=== PATIENT | female | born 1955 | race Caucasian/White ===

== ENCOUNTER 2019-07-02 17:34 | Observation (INO) | payer BC, MEDICARE, SELFPAY ==
[2019-07-02] VITALS (8 sets, daily range): BP systolic 121–167; BP diastolic 54–72; PULSE 66–78; RESP 11–19; TEMP 36.6–36.9; O2SAT 95–100; BMI 32.8; BMI 32.2
--- NOTE | 2019-07-02 18:00 | EKG12_ITS ---
Test Reason : CP ADMIT Blood Pressure : / mmHG Vent. Rate : 066 BPM Atrial Rate : 066 BPM P-R Int : 168 ms QRS Dur : 090 ms QT Int : 412 ms P-R-T Axes : 045 006 053 degrees QTc Int : 431 ms Normal sinus rhythm Normal ECG When compared with ECG of 02-JUL-2019 17:39, MANUAL COMPARISON REQUIRED, DATA IS UNCONFIRMED Confirmed by KELLEY WANG ([id number]), director of promotions OPAL QUINTEROS ([id number]) on 07/05/2019 8:48:48 AM Referred By: Hattie Levine Confirmed By:KELLEY WANG
[2019-07-02 18:06] LABS: Absolute Lymphocyte Count 2.94 X10^3/uL (0.83-4.51); Absolute Neutrophil Count 4.8 X10^3/uL (2.0-7.7); Basophil# 0.06 X10^3/uL; Basophil% 0.7 % (0-1); Eosinophil# 0.04 X10^3/uL; Eosinophils% 0.5 % (0-5); Hematocrit 40.1 % (37-47); Hemoglobin 13.4 g/dL (12.0-15.0); Lymphocyte # 2.94 X10^3/ul (4.0); Mean Corp Hgb Conc 33.4 g/dL (32-36); Mean Corpuscular Hgb 29.3 pg (27.0-32.0); Mean Corpuscular Volume 87.7 fL (81-99); Mean Platelet Vol. 9.3 fl (6.2-12.0); Monocyte# 0.56 X10^3/uL; Monocyte% 6.7 % (0-10); NRBC Flagged by Analyzer 0 % (0-5); Neutrophil # 4.76 X10^3/uL (2.7-7.7); Neutrophil % 56.7 % (47-70); Platelet Count 252 K/mm3 (150-450); RBC Distribution Width SD 38.5 fl (35.1-43.9); Red Blood Count 4.57 M/mm3 (4.2-5.4); White Blood Count 8.4 K/mm3 (4.4-11.0)
--- NOTE | 2019-07-02 18:10 | RAD_ITS ---
STUDY: X-RAY CHEST REASON FOR EXAM: Female, 63 years old. PT STATES SOB FOR A WEEK. INCREASE IN HEAVINESS YESTERDAY THAT RADIATES THROUGH TO BACK. PT C/O NAUSEA. PT ALSO HAS HX OF REFLUX. TECHNIQUE: Single AP portable view of the chest. COMPARISON: 02/05/2016 FINDINGS: EKG leads overlie the chest The lungs are clear and expanded. There is no demonstrated pleural abnormality. Normal size heart. Normal mediastinum and marci. Normal visualized pulmonary arteries. Normal visualized aortic arch and descending thoracic aorta. There are diffuse degenerative changes of the visualized thoracic spine. Normal visualized ribs, clavicles, and shoulders. There is no demonstrated abnormality of the visualized soft tissue structures of the upper abdomen. RAD/Chest 1 View (Portable) IMPRESSION: No acute pulmonary process Electronically Signed: Sean Figueroa MD at 18:21 EST , Service support ,
[2019-07-02 18:23] LABS: Anion Gap 3 (5-15); BUN 16 mg/dL (7-18); BUN/Creat Ratio 19.1 RATIO (10-20); Calcium,Total 9.4 mg/dL (8.5-10.1); Chloride 102 mmol/L (98-107); Creatinine, Serum 0.84 mg/dL (0.55-1.02); EST Glomerular Filtration Rate 73 mL/min (>60); Est Glom Filt Rate - Afr Amer 88 mL/min (>60); Estimated Creatinine Clearance 64.93 ml/min; Glucose 149 mg/dL (74-106); Potassium 3.8 mmol/L (3.5-5.1); Sodium Level 138 mmol/L (136-145)
--- NOTE | 2019-07-02 18:30 | ED.DCSUM_ITS ---
History of Present Illness Chief Complaint: Shortness of Breath Informant: Patient Narrative: Patient presents the emergency department with intermittent chest pain. She describes it as a tightness that comes for several seconds then resolves. She states that time it travels through her left breast. She notes fatigue and some shortness of breath as well.. She notes she had a heart cath many years ago that she states showed a 50% blockage. Unfortunately this must predate the current computer system as it is not accessible by me at this time. He does know the Dr. Bateman performed the procedure.. She states that she was treated about a month ago for a sinus infection. Otherwise she has not had any significant cough or illnesses. Past Medical History - Allergies and Home Meds Allergies/Adverse Reactions: Allergies Latex, Natural Rubber Adverse Reaction (Verified 07/02/19 17:39) Unknown Primary Care Physician: El Driver DO [Primary Care Provider] - Surgical History: appendectomy, cholecystectomy, hysterectomy, - - Laminectomy Smoking Status: Former smoker Review of Systems General: Denies: Chills, Fever, Sweats Eyes: Denies: Visual changes - bilaterally, Diplopia ENT: Denies: Rhinorrhea, Sore throat Cardiovascular: Reports: Chest pain. Denies: Palpitations Respiratory: Reports: Dyspnea. Denies: Cough, Dyspnea on exertion Gastrointestinal: Denies: Abdominal pain, Nausea, Vomiting, Diarrhea, Melena, Hematochezia Genitourinary: Denies: Dysuria, Hematuria, Frequency Musculoskeletal: Denies: Back pain, Extremity Pain Skin: Denies: Rash, Wounds Neurological: Denies: Headache, Weakness, Numbness Physical Exam Vital Signs/Narrative: Vital Signs Temp Pulse Resp BP Pulse Ox 07/02/19 17:35 98.5 F 78 11 L 167/65 H 100 Inital Vital Signs reviewed: Yes General: Well nourished, Well developed, No Acute Distress Head: Normocephalic, Atraumatic Eyes: Perrl, EOMI ENT: Moist mucous membranes, No rhinorrhea Neck: Supple, Nontender Cardiovascular: Regular rate, Regular rhythm, No murmurs Respiratory: No distress, CTA bilaterally, Chest nontender Abdomen: Soft, Nontender, Nondistended, Normal bowel sounds Back: Nontender, Normal Inspection Extremities: Nontender, No edema Skin: Normal color, No rash Neurological: Alert, Oriented x3, Cranial nerves II-XII grossly intact, Normal Strength, Normal Sensation Psychological: Normal affect, Normal Mood Diagnostic/Tx/Re-eval - Rhythm Strip Rhythm Strip: Sinus Rhythm Rate: 75 - Medical Decision Making Troponin was negative. Chest x-ray shows a mediastinal silhouette. Again the chest pain is intermittent. With her symptoms of chest pain shortness of breath fatigue and her medical history including diabetes, hypertension, hypercholesterolemia, and a former smoker she certainly raises concern for the interval development of coronary artery disease. Plan is admission for further testing. ED Disposition - Plan for ED Patient: Disposition: Acute Care [facility] Diagnosis: Chest pain Referrals: El Driver DO [Primary Care Provider] -
--- NOTE | 2019-07-02 19:48 | HP.PCM_ITS ---
History of Present Illness Date of Admission: 07/02/19 Chief Complaint: chest pain, shortness of breath The patient is a 63 year old F with a past medical history of hypertension and diabetes as well as hyperlipidemia and nicotine dependence. She was admitted through the ED on 07/02/2019 with a complaint of chest pain and shortness of breath which have been going on for couple of weeks. She said chest pain was pressure-like and retrosternal and she felt like something was sitting on her chest. Chest pain did not radiate to her left arm or her jaw but she did have some associated lightheadedness with it. She also had assisted exertional shortness of breath which was relieved by rest and states is not been able to go up and down the stairs in her house without getting short of breath. She admitted to occasional palpitations but denied any dizziness, nausea vomiting or abdominal pain. Patient states she had a cardiac cath 7 years ago and was told she had 50% blockage in 1 of her vessels which did not require any stenting. However I do not see any records of any such cath in the EMR. On admission in the ED, blood pressure was elevated at 159/66 and respiratory rate was 19 pulse rate was 71 and she was saturating 95% on room air. Temperature was 98.5 Fahrenheit. Chemistry showed bicarb of 33 with anion gap of 3 but was otherwise unremarkable. Troponin was negative and CBC was unremarkable. EKG done showed normal sinus rhythm with no acute ST changes. X-ray per my review showed no acute cardiopulmonary process. She has been admitted to be managed for chest pain rule out ACS. Past Medical History Past Medical History (Chronic Problems): Chronic Problems osteomyelitis left rib (Chronic) CAD (coronary artery disease) (Chronic) Tobacco user (Chronic) Hypertension (Chronic) Dyslipidemia (Chronic) Diabetes mellitus, type 2 (Chronic) Agitated depression (Chronic) Allergies Latex, Natural Rubber Adverse Reaction (Verified 07/02/19 17:39) Unknown Home Medications: Ambulatory Orders Medication Instructions Recorded Insulin Regular, Human [Novolin R] 20 unit SC DAILY 07/23/15 Aspirin [Adult Low Dose Aspirin EC] 81 mg PO DAILY 02/05/16 Duloxetine HCl 60 mg PO DAILY 02/05/16 Gabapentin [Gralise] 600 mg PO QHS 02/05/16 Glimepiride [Amaryl] 2 mg PO DAILY 02/05/16 Lisinopril [Zestril] 30 mg PO DAILY 02/05/16 Atorvastatin Calcium [Lipitor] 40 mg PO QHS 07/02/19 Insulin NPH Human Isophane 32 units SQ DAILY@0807/02/19 [Humulin N] Insulin NPH Human Isophane 36 units SQ DAILY@199907/02/19 [Humulin N] Omeprazole 40 mg PO BID 07/02/19 Vit C/E/Zn/Coppr/Lutein/Zeaxan 1 cap PO BID 07/02/19 [Preservision Areds 2 Softgel] traZODone [Desyrel] 100 mg PO QHS 07/02/19 Surgical History: appendectomy, cholecystectomy, hysterectomy, - - Laminectomy 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 Denies: Chest Tightness, Edema, Heaviness, Orthopnea, Paroxysmal Noc. Dyspnea, Syncope Respiratory: Reports: Shortness of Breath, Shortness of breath upon exertion. Denies: Cough, Shortness of breath at rest, Sputum production Gastrointestinal: Denies: Abdominal Pain, Nausea, Vomiting Genitourinary: Denies: Dysuria Musculoskeletal: Denies: Joint Pain, Joint Tenderness Skin: Denies: Rash, Wounds Neurological: Denies: Numbness, Tingling, Focal weakness Psychiatric: Denies: Anxiety, Depression, Homicidal Ideations, Suicidal Ideations Hematologic/ Lymphatic: Denies: Easy Bruising, Easy Bleeding VTE Information - Inpt Only VTE Present on Admission: No VTE Pharm Prophylaxis ordered?: Yes Patient Problems: Active and Suspected Problems Chest pain (Acute) - Physical Exam Vitals/I&O's: Vital Signs Temp Pulse Resp BP Pulse Ox 98.5 F 66 18 133/60 H 97 07/02/19 17:35 07/02/19 19:00 07/02/19 19:00 07/02/19 19:00 07/02/19 19:00 Oxygen Delivery Method Room Air Weight: 209 lb 7.026 oz Body Mass Index (BMI) 32.8 Finger Stick Blood Glucose 167 General: Alert, Oriented x3, Cooperative, No apparent distress HEENT: Atraumatic, PERRLA, EOMI, Normocephalic Oral: Moist Mucosa Neck: Supple, No JVD, Negative Carotid Bruits Lungs: Clear to auscultation, Normal air movement, No rhonchi, No wheeze, No rales Cardiovascular: Regular rate, Regular Rhythm, Normal S1, Normal S2, No murmurs Abdomen: Bowel Sounds Present, Soft, Non Tender Extremities: No clubbing, No cyanosis, No edema, Capillary Refill Less than 3 Seconds Skin: No rashes, No breakdown Musculoskeletal: No Tenderness to Palpation of Joints or Extremities Lymphatic: No Cervical, Supraclavicular, or Inguinal Adenopathy Neurological: Cranial nerves II-XII grossly intact, Neuro grossly intact, Motor Exam 5/5 strength throughout Psych/Mental Status: Normal Affect, Appropriate, Alert and oriented to time, place, person, mood and affect Laboratory Results 07/02/19 17:45: WBC 8.4, RBC 4.57, Hgb 13.4, Hct 40.1, MCV 87.7, MCH 29.3, MCHC 33.4, RDW Std Deviation 38.5, RDW Coeff of Siri 12.0, Plt Count 252, MPV 9.3, Immature Gran % (Auto) 0.400, Neut % (Auto) 56.7, Lymph % (Auto) 35.0, [place] % (Auto) 6.7, Eos % (Auto) 0.5, Baso % (Auto) 0.7, Absolute Neuts (auto) 4.8, Absolute Lymphs (auto) 2.94, Nucleated RBC % 0 07/02/19 17:45: Sodium 138, Potassium 3.8, Chloride 102, Carbon Dioxide 33.0 H, Anion Gap 3 L, BUN 16, Creatinine 0.84, Estim Creat Clear Calc 64.93, Est GFR (MDRD) Af Amer 88, Est GFR (MDRD) Non-Af 73, BUN/Creatinine Ratio 19.1, Glucose 149 H, Calcium 9.4, Troponin I < 0.015 Assessment/Plan All Active Problems Chest pain (Acute) FEVER (Acute) 63-year-old admitted with a complaint of chest pain and shortness of breath. 1. Unstable angina * Admit to PCU with telemetry. Chest pain very classic for cardiac disease as it worsened by exertion and relieved by rest she feels like nothing is sitting on her chest. * Troponin is negative. We will cycle troponin. EKG showed no acute ST changes. * No records in the EMR with patient having had previous cardiac cath though she states that she had a cardiac cath about 5 years ago and was told that she had about 50% blockage in 1 of her vessels. * Patient is high risk for coronary artery disease with a history of smoking, diabetes, hyperlipidemia and hypertension as well as an extensive family history of cardiac disease that she states of her siblings have even had CABG on account of heart disease. * I do not think stress test will help re-stratify patient as she is high risk. We will therefore consult cardiology. * Discussed with Dr Bateman-we will keep n.p.o. for cardiac cath tomorrow. * SL nitroglycerin prn, PO aspirin 81mg daily * check lipid panel and A1C * continue statin * 2. Hyperlipidemia: On statin. 3. Hypertension: On lisinopril. 4. Type 2 diabetes mellitus: * On pH insulin 30 units twice daily and short acting insulin 20 units daily. * Hold insulin for now as she is going to be n.p.o. for cardiac cath tomorrow. * Insulin sliding scale. Accu-Cheks AC at bedtime. * Also hold glimepiride. * 5. Nicotine dependence: Says she is to smoke about 8 sticks daily and quit 2 weeks ago. Counseled to quit. Nicotine patch 14mg daily. DVT prophylaxis; lovenox Code Status: Full code * Patient counseled extensively about different types of CODE STATUS including full code, DNR CCA and DNR CCA. Patient elects to be full code. Total ephy-lo-dmvn time 17 minutes. Code Visit Inpatient E&M: 30038 Init Hosp L2 Procedures: 84876 Advncd Care Plan 30 Min
--- NOTE | 2019-07-02 20:28 | EKG12_ITS ---
Test Reason : CP Blood Pressure : / mmHG Vent. Rate : 075 BPM Atrial Rate : 075 BPM P-R Int : 162 ms QRS Dur : 086 ms QT Int : 396 ms P-R-T Axes : 049 004 068 degrees QTc Int : 442 ms Normal sinus rhythm Normal ECG Confirmed by PABLO MCKEON, CELINA ([id number]), associate editor OPAL QUINTEROS ([id number]) on 07/06/2019 9:48:22 AM Referred By: Hattie Levine Confirmed By:HOLLY SHAH MD
[2019-07-02 21:45] LABS: Hemoglobin A1c 7.2 % (4.2-6.3)
[2019-07-02] MEDS: Gabapentin 600 MG Tablet PO (22:47)
[2019-07-02] MEDS: Atorvastatin Calcium 40 MG Tablet PO (22:47)
[2019-07-02] MEDS: traZODone 100 MG Tablet PO (22:47)
[2019-07-02 23:51] LABS: Bedside Glucose 149 mg/dL (70-110)
[2019-07-03] VITALS (14 sets, daily range): BP systolic 107–132; BP diastolic 57–64; PULSE 58–74; RESP 16–18; TEMP 36.6–36.7; O2SAT 96–100
[2019-07-03 00:22] LABS: Bacteria 0 SEEN /hpf (None Seen); Mucous, Urine 0 SEEN /hpf (<or=2+); Red Blood Cells-Urine 0 SEEN /hpf (0-5)
[2019-07-03 00:30] LABS: Color, Urine Yellow (Yellow); Glucose, Dipstick Normal (Normal); Ketone-Dipstick Negative (Negative); Leukocyte Esterase-Dipstick 100 /ul (Negative); Nitrite-Dipstick Negative (Negative); Occult Blood-Urine 10 /ul (Negative); Protein-Dipstick Negative (Negative); Specific Gravity, Urine 1.015 (1.002-1.030); Urine Bilirubin Dipstick Negative (Negative); Urine Clarity Clear (Clear); Urine Urobilinogen Normal (Normal)
[2019-07-03 00:42] LABS: Squamous Epithelial Cells - UA 0-5 SEEN /hpf (5-10); White Blood Cells 0-5 SEEN /hpf (0-5)
[2019-07-03] MEDS: 0.9% Saline Lock 10 ML Syringe IV (02:18)
[2019-07-03] MEDS: Ceftriaxone 1 GM/50 ML BAG IV (02:20)
[2019-07-03 06:05] LABS: Absolute Lymphocyte Count 4.36 X10^3/uL (0.83-4.51); Absolute Neutrophil Count 4.7 X10^3/uL (2.0-7.7); Basophil# 0.06 X10^3/uL; Basophil% 0.6 % (0-1); Eosinophil# 0.09 X10^3/uL; Eosinophils% 0.9 % (0-5); Hematocrit 42.3 % (37-47); Lymphocyte # 4.36 X10^3/ul (4.0); Lymphocyte % 43.9 % (19-41); Mean Corp Hgb Conc 33.1 g/dL (32-36); Mean Corpuscular Hgb 29.2 pg (27.0-32.0); Mean Corpuscular Volume 88.1 fL (81-99); Mean Platelet Vol. 9.4 fl (6.2-12.0); Monocyte# 0.71 X10^3/uL; Monocyte% 7.2 % (0-10); NRBC Flagged by Analyzer 0 % (0-5); Neutrophil # 4.68 X10^3/uL (2.7-7.7); Neutrophil % 47.1 % (47-70); Platelet Count 283 K/mm3 (150-450); RBC Distribution Width CV 12.2 % (11.6-14.6); RBC Distribution Width SD 39.5 fl (35.1-43.9); White Blood Count 9.9 K/mm3 (4.4-11.0)
[2019-07-03] MEDS: Lisinopril 20 MG Tablet 30 MG PO (06:16)
[2019-07-03] MEDS: Pantoprazole Sodium 40 MG Tablet PO (06:17)
[2019-07-03] MEDS: Aspirin E.C. 81 MG Tablet PO (06:17)
[2019-07-03 06:25] LABS: Bedside Glucose 120 mg/dL (70-110)
[2019-07-03 06:37] LABS: Anion Gap 5 (5-15); BUN 14 mg/dL (7-18); BUN/Creat Ratio 15.9 RATIO (10-20); Calcium,Total 9.3 mg/dL (8.5-10.1); Chloride 102 mmol/L (98-107); Cholesterol 184 mg/dL (200); Creatinine, Serum 0.88 mg/dL (0.55-1.02); EST Glomerular Filtration Rate 68 mL/min (>60); Est Glom Filt Rate - Afr Amer 83 mL/min (>60); Estimated Creatinine Clearance 61.98 ml/min; Glucose 122 mg/dL (74-106); High Density Lipoprotein 47 mg/dL; Potassium 3.2 mmol/L (3.5-5.1); Sodium Level 137 mmol/L (136-145); Triglycerides 260 mg/dL; Very Low Density Lipoprotein 52 mg/dL (5-40)
--- NOTE | 2019-07-03 07:22 | CON.PCM_ITS ---
Reason for Consult Date of Consultation: 07/03/19 Reason for Consultation: Chest pain History of Present Illness: The patient is a 63 year old Fwith a past medical history of hypertension and diabetes as well as hyperlipidemia and nicotine dependence. She was admitted through the ED on 07/02/2019 with a complaint of chest pain and shortness of breath which have been going on for couple of weeks. She said chest pain was pressure-like and retrosternal and she felt like something was sitting on her chest. Chest pain did not radiate to her left arm or her jaw but she did have some associated lightheadedness with it. She also had assisted exertional shortness of breath which was relieved by rest and states is not been able to go up and down the stairs in her house without getting short of breath. She admitted to occasional palpitations but denied any dizziness, nausea vomiting or abdominal pain. Patient states she had a cardiac cath 7 years ago and was told she had 50% blockage in 1 of her vessels which did not require any stenting. On admission in the ED, blood pressure was elevated at 159/66 and respiratory rate was 19 pulse rate was 71 and she was saturating 95% on room air. Past Medical History Allergies/Adverse Reactions: Allergies Latex, Natural Rubber Adverse Reaction (Verified 07/02/19 17:39) Unknown Home Medications: Ambulatory Orders Medication Instructions Recorded Insulin Regular, Human [Novolin R] 24 unit SC DAILY@0800 07/23/15 Aspirin [Adult Low Dose Aspirin EC] 81 mg PO DAILY 02/05/16 Duloxetine HCl 60 mg PO DAILY 02/05/16 Gabapentin [Gralise] 600 mg PO QHS 02/05/16 Glimepiride [Amaryl] 2 mg PO DAILY 02/05/16 Lisinopril [Zestril] 30 mg PO DAILY 02/05/16 Atorvastatin Calcium [Lipitor] 40 mg PO QHS 07/02/19 Insulin NPH Human Isophane 32 units SQ DAILY@0800 07/02/19 [Humulin N] Insulin NPH Human Isophane 36 units SQ DAILY@199907/02/19 [Humulin N] Omeprazole 40 mg PO DAILY 07/02/19 Vit C/E/Zn/Coppr/Lutein/Zeaxan 1 cap PO BID 07/02/19 [Preservision Areds 2 Softgel] traZODone [Desyrel] 100 mg PO QHS 07/02/19 Past Medical History (Chronic Problems): Chronic Problems osteomyelitis left rib (Chronic) CAD (coronary artery disease) (Chronic) Tobacco user (Chronic) Hypertension (Chronic) Dyslipidemia (Chronic) Diabetes mellitus, type 2 (Chronic) Agitated depression (Chronic) Surgical History: appendectomy, cholecystectomy, hysterectomy, - - Laminectomy 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 Denies: Shortness of Breath, Orthopnea, PND, Peripheral Edema, Palpitations, Lightheadedness, Dizziness, Near Syncope, Syncope Respiratory: Denies: Cough, Sputum Production, Hemoptysis Gastrointestinal: Denies: Hematemesis, Hematochezia, Melena Genitourinary: Denies: Dysuria, Hematuria Skin: Denies: Rash Neurological: Denies: Dizziness Psychiatric: Denies: Anxiety Endocrine: Denies: Heat Intolerance Hematologic/ Lymphatic: Denies: Anemia Subjectve: Pleasant lady in no distress Objective: Vital Signs Temp Pulse Resp BP Pulse Ox 97.8 F 62 16 107/57 L 98 07/03/19 06:10 07/03/19 06:10 07/03/19 06:10 07/03/19 06:10 07/03/19 06:10 Oxygen Delivery Method Room Air Weight: 205 lb 14.588 oz Body Mass Index (BMI) 32.2 Finger Stick Blood Glucose 167 Intake and Output for Last 24 Hours 07/01/19 07/02/19 07/03/19 23:59 23:59 23:59 Intake Total 240 / 240 54.50 / 54.50 Balance 240 / 240 54.50 / 54.50 General: Awake, Alert, Oriented x 3 HEENT: PERRL, EOMI, Sclera Non Icteric Neck: Supple, Good ROM, No Lymph Node Enlargement Lungs: Clear to auscultation Cardiovascular: Regular Rhythm, Normal S1, Normal S2, No Murmurs, No Rubs, No Gallops Vascular: No Carotid Bruits, Normal Femoral Pulses, Normal Radial Pulses, Normal Dorsalis Pedal Pulse, Normal Posterior Tibial Pulses Abdomen: Bowel Sounds Present, Soft, Non Tender, No HSM, No Organomegaly Extremities: No Cyanosis, No Clubbing, No edema Musculoskeletal: No Erythema Skin: No Rashes Lymphatic: No Lymph Node Enlargement Neurological: No Focal Motor or Sensory Deficit Psych/Mental Status: Appropriate 07/02/19 17:45: WBC 8.4, RBC 4.57, Hgb 13.4, Hct 40.1, MCV 87.7, MCH 29.3, MCHC 33.4, Plt Count 252, MPV 9.3, Immature Gran % (Auto) 0.400, Neut % (Auto) 56.7, Lymph % (Auto) 35.0, [place] % (Auto) 6.7, Eos % (Auto) 0.5, Baso % (Auto) 0.7, Absolute Neuts (auto) 4.8, Nucleated RBC % 0 07/02/19 17:45: Sodium 138, Potassium 3.8, Chloride 102, Carbon Dioxide 33.0 H, Anion Gap 3 L, BUN 16, Creatinine 0.84, Est GFR (MDRD) Af Amer 88, Est GFR (MDRD) Non-Af 73, BUN/Creatinine Ratio 19.1, Glucose 149 H, Calcium 9.4, Troponin I < 0.015 07/02/19 17:45: Hemoglobin A1c 7.2 H 07/02/19 21:10: Troponin I < 0.015 07/02/19 23:56: Troponin I < 0.015 07/03/19 00:10: Urine Color Yellow, Urine Clarity Clear, Urine pH 6.0, Ur Specific [place] 1.015, Urine Protein Negative, Urine Glucose (UA) Normal, Urine Ketones Negative, Urine Occult Blood 10 H, Urine Nitrite Negative, Urine Bilirubin Negative, Urine Urobilinogen Normal, Ur Leukocyte Esterase 100 H, Urine RBC 0 SEEN, Urine WBC 0-5 SEEN 07/03/19 05:17: WBC 9.9, RBC 4.80, Hgb 14.0, Hct 42.3, MCV 88.1, MCH 29.2, MCHC 33.1, Plt Count 283, MPV 9.4, Immature Gran % (Auto) 0.300, Neut % (Auto) 47.1, Lymph % (Auto) 43.9 H, [place] % (Auto) 7.2, Eos % (Auto) 0.9, Baso % (Auto) 0.6, Absolute Neuts (auto) 4.7, Nucleated RBC % 0 07/03/19 05:17: Sodium 137, Potassium 3.2 L, Chloride 102, Carbon Dioxide 30.0, Anion Gap 5, BUN 14, Creatinine 0.88, Est GFR (MDRD) Af Amer 83, Est GFR (MDRD) Non-Af 68, BUN/Creatinine Ratio 15.9, Glucose 122 H, Calcium 9.3, Triglycerides 260 H, Cholesterol 184, LDL Cholesterol 85, VLDL Cholesterol 52 H, HDL Cholesterol 47 Rhythm: EKG: ECHO: Stress Test: Cardiac Cath: PCI: CT Surgery: Holter monitor: EPS: PPM: CXR: Chest CT Scan: Assessment/Plan 1. Chest discomfort * Patient presents with chest discomfort with some concerning features. Thus far her EKG is normal and cardiac enzymes are normal. She does have previous moderate coronary artery disease and still has risk factors of hypertension hyperlipidemia. Ideally she would benefit from exercise myocardial perfusion stress testing however the patient says that she prefers to know what is going on. We will therefore proceed directly to a cardiac catheterization. The risk benefits alternatives of been explained to her she understands and agrees to proceed. Depending on the findings further recommendations will be made. * * Addendum: Patient underwent cardiac catheterization which demonstrated mild to moderate diffuse disease but with no high-grade focal stenosis. Coronary calcification noted. Would recommend aggressive risk factor modification including diet, weight loss, high intensity statin, aspirin, and the addition of amlodipine.
--- NOTE | 2019-07-03 08:52 | CL.D_ITS ---
Patient Name: CARLOS COVARRUBIAS Study Date: 07/03/2019 Performing: Heath Bateman MD Ht: 67 inches 170 cm : 1955 Wt: 205.3 lbs 93 kg Age: 63 Gender: female BSA: 2.04 PROCEDURE(S) PERFORMED [id number] CLINICAL PROFILE AND INDICATIONS Indications: Worsening Angina Heart Failure: None Stress/Imaging Stress/Image Study Performed: No CAD Presentations: Unstable angina. CONCLUSIONS Non obstructive coronary arteries RECOMMENDATIONS Medical therapy DESCRIPTION OF PROCEDURE The patient arrived to the procedure lab. The risks and benefits of the procedure as well as a full d escription of our services here and current unavailability of surgical backup were fully explained to the patient and/or their significant other prior to the catheterization. The Timeout was completed, verifying the correct patient and procedure. The patient's procedural site was prepped and draped in the usual fashion. Local anesthetic was given subcutaneously to right groin region with Lidocaine 2%. Using a modified Seldinger technique, arterial access was obtained via the right femoral artery, a 5 Fr sheath was inserted. Left Coronary Artery selective angiography was performed in multiple views u sing a 5 Fr. JL4 catheter. Right Coronary Artery selective angiography was then performed in multiple views using a 5 Fr. 3DRC (Dallin) catheter. Left Ventriculography was performed in ISIDRO projection using a 5 Fr. Pigtail catheter. LV to AO pullback pressures were then recorded.Contrast was injected through the sheath and the Right Iliac and Femoral artery were assessed for possible russ sure device.The arterial sheath was pulled and a Mynx closure device was deployed for hemostasis CORONARY ANGIOGRAPHY DOMINANCE: Right Dominant LEFT HEART ASSESSMENT Left Ventricular Ejection Fraction: by LV Gram 60 % Normal LV wall motion Normal Left Ventricular systolic function LEFT MAIN: Mild calcification, Angiographically normal LEFT ANTERIOR DESCENDING ARTERY: Mild calcification, Moderate luminal irregularities up to 50% CIRCUMFLEX ARTERY: Mild luminal irregularities RIGHT CORONARY ARTERY: Mild luminal irregularities COMPLICATIONS No Complications PROCEDURE MEDICATIONS Versed 1 mg IV Versed 1 mg IV Oxygen: 2 L/min via nasal cannula Benadryl 25 mg IV @ 07/03/2019 07:58:18 Plavix 300 mg PO 07/03/2019 07:45:19 Solu-medrol 125 mg IV 07/03/2019 07:58:27 SUMMARY OF HEMODYNAMIC DATA Time AIR REST ECG 07:44:13 AO 124/56 (80) SA 08:07:28 LV 136/8, 16 08:13:53 LV 128/7, 15 08:14:00 LV 134/11, 17 08:14:54 LVp 137/9, 17 08:14:59 AOp 133/57 (87) 08:15:04 Signed By Heath Bateman MD On 07/03/2019 08:52:02 Heath Bateman MD
[2019-07-03] MEDS: Clopidogrel Bisulfate 300 MG Tablet PO (10:36)
[2019-07-03] MEDS: amLODIPine 5 MG Tablet PO (10:48)
[2019-07-03] MEDS: DULoxetine Hcl 60 MG Capsule PO (10:49)
[2019-07-03 11:25] LABS: Bedside Glucose 131 mg/dL (70-110)
--- NOTE | 2019-07-03 11:50 | DCINST_ITS ---
- Discharge Diagnoses Current Active Problems: Current Active and Chronic Problems (Last Updated 07/03/19 @ 12:24 by Kayleen Vásquez) Nonobstructive atherosclerosis of coronary artery (Chronic) Essential (primary) hypertension (Chronic) Chest pain (Acute) You will use the following diet at home:: Cardiac Your food should be the consistency of: Regular Discharge Activity: May Not Drive - FOR 1 WEEK Call your doctor if you observe: Fever of 101 or Higher, Numbness or Tingling, Inability to urinate, Inability to have a bowel movement, Using more than one pad per hour, Shortness of breath, Dizziness, Fainting spells, Swelling in the ankles, Chest pain, Prolonged hiccoughing, Increased palpitations (irregular heartbeat), Calf discomfort, Uncontrolled pain Allergies/Adverse Reactions: Allergies Latex, Natural Rubber Adverse Reaction (Verified 07/02/19 17:39) Unknown Medications to take at Discharge Insulin Regular, Human [Novolin R] 24 unit SC DAILY@0800 07/23/15 Aspirin [Adult Low Dose Aspirin EC] 81 mg PO DAILY 02/05/16 Duloxetine HCl 60 mg PO DAILY 02/05/16 Gabapentin [Gralise] 600 mg PO QHS 02/05/16 Glimepiride [Amaryl] 2 mg PO DAILY 02/05/16 Lisinopril [Zestril] 30 mg PO DAILY 02/05/16 Insulin NPH Human Isophane [Humulin N] 32 units SQ DAILY@0800 07/02/19 Insulin NPH Human Isophane [Humulin N] 36 units SQ DAILY@199907/02/19 Omeprazole 40 mg PO DAILY 07/02/19 Vit C/E/Zn/Coppr/Lutein/Zeaxan [Preservision Areds 2 Softgel] 1 cap PO BID 07/02/19 traZODone [Desyrel] 100 mg PO QHS 07/02/19 Amlodipine [Norvasc] 5 mg PO DAILY #30 tab 07/03/19 Atorvastatin Calcium [Lipitor] 40 mg PO QHS #30 tab 07/03/19 The following prescriptions were given: Atorvastatin Calcium [Lipitor] 40 mg PO QHS #30 tab Transmission Status: Pending to [facility] Amlodipine [Norvasc] 5 mg PO DAILY #30 tab Transmission Status: Pending to [facility] Primary Care Physician: El Driver DO [Primary Care Provider] - Please follow up with your Primary Care Physician in: IN 2 weeks Test Results: Test results from this visit will be discussed in further detail at your follow- up appointment, if applicable.
--- NOTE | 2019-07-03 12:58 | PCM.DC.SUM ---
Discharge Date and Diagnosis - Problem List Patient Problems: Active and Suspected Problems (Last Updated 07/03/19 @ 12:24 by Kayleen Vásquez) Chest pain (Acute) Date of Admission: 07/02/19 Date of Discharge: 07/03/19 - Primary Discharge Diagnosis Active and Suspected Problems (Last Updated 07/03/19 @ 12:24 by Kayleen Vásquez) Chest pain (Acute) - Secondary Discharge Diagnosis Chronic Problems (Last Updated 07/03/19 @ 12:24 by Kayleen Vásquez) Nonobstructive atherosclerosis of coronary artery (Chronic) Essential (primary) hypertension (Chronic) Tobacco user (Chronic) Dyslipidemia (Chronic) Diabetes mellitus, type 2 (Chronic) Hospital Course and Treatment Operations: None Summary of Care Provided: The patient is a 63 year old F with history of nonobstructive coronary artery disease was admitted with chest pain and shortness of breath on PCU. EKG was normal sinus rhythm. Serial troponins negative. As per patient, she had cardiac cath about 5 years ago and was told about 50% blockage in 1 of her vessels but no records available to corroborate it. 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 Cardiac cath showed nonobstructive coronary artery disease. EF by LV gram 60%. Normal LV wall motion normal left ventricular systolic function. Start patient has chest pain probably secondary to GERD. Patient is on omeprazole 40 mg daily. Was advised to follow-up with GI. Patient other comorbidities including hypertension, diabetes mellitus type 2, dyslipidemia A1c 7.2 suggestive of fairly well control of diabetes. Patient on glimepiride and insulin at home. Fasting lipid profile shows total cholesterol 184, TG 260, LDL of 85. Started on atorvastatin 40 mg daily and a prescription given. Patient was also given for amlodipine 5 mg daily. Blood pressures controlled Discharge medication reconciliation done. Discharge follow-up instructions completed. Discharge process discussed with the patient and her daughter near the bedside and all questions were answered to patient's satisfaction. Total time spent, exact 35 minutes on discharge meds reconciliation, examination, review of imaging and blood test and discussion with the patient on follow-up instructions. [] Patient Problems: Active and Suspected Problems (Last Updated 07/03/19 @ 12:24 by Kayleen Vásquez) Chest pain (Acute) Subjective: Seen and examined in the morning. Patient was admitted with chest pain with suspicion of unstable angina. Patient has long history of acid reflux/GERD and she admitted it feels like there. Patient had cardiac cath in the morning. Dr. Bateman informed me that it is nonobstructive coronary artery disease. In the morning chest pain resolved. No shortness of breath. - Physical Exam Vitals/I&O's: Vital Signs Temp Pulse Resp BP Pulse Ox 98.1 F 68 18 127/60 H 98 07/03/19 11:45 07/03/19 11:45 07/03/19 11:45 07/03/19 11:45 07/03/19 11:45 Oxygen Flow Rate (L/min) 2 Oxygen Delivery Method Room Air Weight: 205 lb 14.588 oz Body Mass Index (BMI) 32.2 Finger Stick Blood Glucose 167 Intake and Output for Last 24 Hours 07/01/19 07/02/19 07/03/19 23:59 23:59 23:59 Intake Total 240 / 240 294.50 / 294.50 Balance 240 / 240 294.50 / 294.50 General: Alert, Oriented x3, Cooperative HEENT: Atraumatic, PERRLA, EOMI, Normocephalic Neck: Supple, No JVD, Negative Carotid Bruits Lungs: Clear to auscultation, Normal air movement, No rhonchi, No wheeze, No rales Cardiovascular: Regular rate, Regular Rhythm, Normal S1, No murmurs Abdomen: Bowel Sounds Present, Soft, Non Tender, Non-Distended Extremities: No edema, Capillary Refill Less than 3 Seconds Skin: - - Right groin dressing is dry. No hemaoma at card cath access site Musculoskeletal: No Tenderness to Palpation of Joints or Extremities Neurological: Cranial nerves II-XII grossly intact, Deep Tendon Reflexes 2+/4 and Symmetrical, Neuro grossly intact Psych/Mental Status: Normal Affect, Appropriate Laboratory Results 07/02/19 17:45: WBC 8.4, RBC 4.57, Hgb 13.4, Hct 40.1, MCV 87.7, MCH 29.3, MCHC 33.4, RDW Std Deviation 38.5, RDW Coeff of Siri 12.0, Plt Count 252, MPV 9.3, Immature Gran % (Auto) 0.400, Neut % (Auto) 56.7, Lymph % (Auto) 35.0, [place] % (Auto) 6.7, Eos % (Auto) 0.5, Baso % (Auto) 0.7, Absolute Neuts (auto) 4.8, Absolute Lymphs (auto) 2.94, Nucleated RBC % 0 07/02/19 17:45: Sodium 138, Potassium 3.8, Chloride 102, Carbon Dioxide 33.0 H, Anion Gap 3 L, BUN 16, Creatinine 0.84, Estim Creat Clear Calc 64.93, Est GFR (MDRD) Af Amer 88, Est GFR (MDRD) Non-Af 73, BUN/Creatinine Ratio 19.1, Glucose 149 H, Calcium 9.4, Troponin I < 0.015 07/02/19 17:45: Hemoglobin A1c 7.2 H 07/02/19 21:10: Troponin I < 0.015 07/02/19 23:46: POC Glucose 149 H 07/02/19 23:56: Troponin I < 0.015 07/03/19 00:10: Urine Color Yellow, Urine Clarity Clear, Urine pH 6.0, Ur Specific [place] 1.015, Urine Protein Negative, Urine Glucose (UA) Normal, Urine Ketones Negative, Urine Occult Blood 10 H, Urine Nitrite Negative, Urine Bilirubin Negative, Urine Urobilinogen Normal, Ur Leukocyte Esterase 100 H, Urine RBC 0 SEEN, Urine WBC 0-5 SEEN, Ur Squamous Epith Cells 0-5 SEEN, Urine Bacteria 0 SEEN, Urine Mucus 0 SEEN 07/03/19 05:17: WBC 9.9, RBC 4.80, Hgb 14.0, Hct 42.3, MCV 88.1, MCH 29.2, MCHC 33.1, RDW Std Deviation 39.5, RDW Coeff of Siri 12.2, Plt Count 283, MPV 9.4, Immature Gran % (Auto) 0.300, Neut % (Auto) 47.1, Lymph % (Auto) 43.9 H, [place] % (Auto) 7.2, Eos % (Auto) 0.9, Baso % (Auto) 0.6, Absolute Neuts (auto) 4.7, Absolute Lymphs (auto) 4.36, Nucleated RBC % 0 07/03/19 05:17: Sodium 137, Potassium 3.2 L, Chloride 102, Carbon Dioxide 30.0, Anion Gap 5, BUN 14, Creatinine 0.88, Estim Creat Clear Calc 61.98, Est GFR (MDRD) Af Amer 83, Est GFR (MDRD) Non-Af 68, BUN/Creatinine Ratio 15.9, Glucose 122 H, Calcium 9.3, Triglycerides 260 H, Cholesterol 184, LDL Cholesterol 85, VLDL Cholesterol 52 H, HDL Cholesterol 47 07/03/19 06:20: POC Glucose 120 H 07/03/19 11:01: POC Glucose 131 H Current Medications Amlodipine Besylate (Norvasc) 5 mg PO DAILY [facility] Last Admin: 07/03/19 10:48 Dose: 5 mg Documented by: Aspirin (Ecotrin) 81 mg PO DAILY [facility] Last Admin: 07/03/19 06:17 Dose: 81 mg Documented by: Atorvastatin Calcium (Lipitor) 40 mg PO QHS [facility] Last Admin: 07/02/19 22:47 Dose: 40 mg Documented by: Dextrose (D50w Syringe) 0 gm IV X1 PRN; Protocol PRN Reason: Hypoglycemia Duloxetine HCl (Cymbalta) 60 mg PO DAILY [facility] Last Admin: 07/03/19 10:49 Dose: 60 mg Documented by: Enoxaparin Sodium (Lovenox) 40 mg SC DAILY [facility] Last Admin: 07/03/19 10:50 Dose: Not Given Documented by: Gabapentin (Neurontin) 600 mg PO QHS [facility] Last Admin: 07/02/19 22:47 Dose: 600 mg Documented by: Glucagon () 1 mg IM .X1 PRN PRN Reason: Hypoglycemia Heparin Sodium (Beef Lung) (Heparin 500 Unit/5 Ml (100/Ml)) 500 unit IV UD PRN PRN Reason: HEPARIN FLUSH Sodium Chloride () 250 mls @ 15 mls/hr IV .[id number] PRN PRN Reason: Saline Flush Last Infusion: 07/03/19 03:05 Dose: 0 mls/hr Documented by: Sodium Chloride () 250 mls @ 15 mls/hr IV .[id number] PRN PRN Reason: Additional IVPB Infusion Sodium Chloride () 1,000 mls @ 0 mls/hr IV .Q0M [facility] Insulin Human Lispro (Humalog Kwikpen (Bkc)) 0 unit SC Q6 [facility]; Protocol Last Admin: 07/03/19 11:02 Dose: Not Given Documented by: Labetalol HCl (Trandate) 5 mg IV X1 PRN PRN Reason: SBP > 160 prior to sheath pull Stop: 07/05/19 08:25 Lisinopril (Zestril) 30 mg PO DAILY [facility] Last Admin: 07/03/19 06:16 Dose: 30 mg Documented by: Nitroglycerin (Nitrostat) 0.4 mg SUBLINGUAL Q5M PRN PRN Reason: CARDIAC/CHEST PAIN Ondansetron HCl (Zofran) 4 mg IV Q8H PRN PRN PRN Reason: NAUSEA/VOMITING Pantoprazole Sodium (Protonix) 40 mg PO DAILY [facility] Last Admin: 07/03/19 06:17 Dose: 40 mg Documented by: Potassium Chloride (K-Dur) 40 meq PO X1 ONE Stop: 07/03/19 12:54 Sodium Chloride () 10 - 40 ml IV UD PRN PRN Reason: SALINE FLUSH Last Admin: 07/03/19 02:18 Dose: 10 ml Documented by: Trazodone HCl (Desyrel) 100 mg PO QHS [facility] Last Admin: 07/02/19 22:47 Dose: 100 mg Documented by: Discharge Activity: May Not Drive - FOR 1 WEEK Call your doctor if you observe: Fever of 101 or Higher, Numbness or Tingling, Inability to urinate, Inability to have a bowel movement, Using more than one pad per hour, Shortness of breath, Dizziness, Fainting spells, Swelling in the ankles, Chest pain, Prolonged hiccoughing, Increased palpitations (irregular heartbeat), Calf discomfort, Uncontrolled pain Home Medications: Medications to take at Discharge Insulin Regular, Human [Novolin R] 24 unit SC DAILY@0807/23/15 Aspirin [Adult Low Dose Aspirin EC] 81 mg PO DAILY 02/05/16 Duloxetine HCl 60 mg PO DAILY 02/05/16 Gabapentin [Gralise] 600 mg PO QHS 02/05/16 Glimepiride [Amaryl] 2 mg PO DAILY 02/05/16 Lisinopril [Zestril] 30 mg PO DAILY 02/05/16 Insulin NPH Human Isophane [Humulin N] 32 units SQ DAILY@0800 07/02/19 Insulin NPH Human Isophane [Humulin N] 36 units SQ DAILY@199907/02/19 Omeprazole 40 mg PO DAILY 07/02/19 Vit C/E/Zn/Coppr/Lutein/Zeaxan [Preservision Areds 2 Softgel] 1 cap PO BID 07/02/19 traZODone [Desyrel] 100 mg PO QHS 07/02/19 Amlodipine [Norvasc] 5 mg PO DAILY #30 tab 07/03/19 Atorvastatin Calcium [Lipitor] 40 mg PO QHS #30 tab 07/03/19 Following Prescrptions Were Given to Patient: Atorvastatin Calcium [Lipitor] 40 mg PO QHS #30 tab Transmission Status: Pending to [facility] Amlodipine [Norvasc] 5 mg PO DAILY #30 tab Transmission Status: Pending to [facility] Primary Care Physician: El Driver DO [Primary Care Provider] - Please follow up with your Primary Care Physician in: IN 2 weeks Medical Necessity - Tobacco Use Smoking Status: Former smoker Tobacco Use: Cigarettes Meaningful Use Info Meaningful Use Diagnoses (Choose all that apply): None applicable Code Visit OBSV E&M: 64952 Observation care discharge
[2019-07-03 14:06] LABS: Bedside Glucose 398 mg/dL (70-110)
== END 2019-07-03 08:25 | disposition home or self-care (01) ==
LOC: ED 19:49 → PCU 22:59
PROVIDERS: Family Medicine; Admitting Provider Student in an Organized Health Care Education/Training Program; Emergency Provider Emergency Medicine; Family Provider Student in an Organized Health Care Education/Training Program; PCP Student in an Organized Health Care Education/Training Program; Referring Provider Student in an Organized Health Care Education/Training Program; Visit Provider Internal Medicine
DX: R07.89 Other chest pain (principal); I10 Essential (primary) hypertension; Z23 Encounter for immunization; K21.9 Gastro-esophageal reflux disease without esophagitis; E78.5 Hyperlipidemia, unspecified; I25.110 Atherosclerotic heart disease of native coronary artery with unstable angina pectoris; F32.9 Major depressive disorder, single episode, unspecified; E11.9 Type 2 diabetes mellitus without complications; Z79.899 Other long term (current) drug therapy; Z79.4 Long term (current) use of insulin; Z79.82 Long term (current) use of aspirin; Z87.891 Personal history of nicotine dependence
CPT/HCPCS: 36415; 71045; 80048; 80061; 81001; 82962; 83036; 84484; 85025; 93005; 93458; 96365; 99152; 99153; 99218; 99285; C1760; J7050; Q9967; 90686; A4216; C1769; G0378

== ENCOUNTER → 2019-08-07 13:49 | Outpatient (CLI) | payer BC, MEDICARE, SELFPAY ==
[2019-07-02 20:09] VITALS: BMI 32.2
[2019-08-07 13:24] VITALS: BMI 32.4
--- NOTE | 2019-08-07 13:50 | CT_ITS ---
STUDY: LOW DOSE CT LUNG CANCER SCREENING REASON FOR EXAM: Female, 63 years old. Tobacco use, smoke 2+ packs/day x 50+ years, quit 06/2019, 235lbs. 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 Hx diabetes and hypertension. RADIATION DOSAGE (If Supplied By Facility): CTDIvol = ( 4.02 ) mGy, DLP = ( 144.96 ) mGycm TECHNIQUE: No contrast was administered. Low dose technique was utilized (average mAS-38 and kVp 120). 1.25 mm axial source images with a slice interval of 1.25-mm were reconstructed in lung windows. 2.5 mm axial source images with a slice interval of 2.5-mm were reconstructed in lung windows. 5.0 mm axial source images with a slice interval of 5.0-mm were reconstructed in soft tissue windows. Nodule measured using lung windows on PACS and/or independent workstation with automated measurement of minimum and maximum diameter. Nodule measurement reported as average diameter rounded to the nearest whole number. Growth is defined as an increase ins size of greater than 1.5 mm. COMPARISON: Comparison is made with prior CT scan of the chest dated December 14, 2012. NODULES: No abnormal nodules are seen. Emphysema: Mild emphysematous changes. Aorta: Atherosclerotic calcification of the aortic arch. Coronary arteries: Coronary artery calcification. Mediastinal nodes: Small benign-appearing mediastinal lymph nodes. Other chest and abdominal findings: Degenerative changes of the thoracic spine. CT/Low Dose CT Lung Screening IMPRESSION: Lung-RADS category 1 - Continue annual screening with LDCT in 12 months. IMPORTANT NOTES FOR USE: ACR Lung-RADS Version 1.0 Assessment Categories Release Date: October 15, 2013 Category: Coded 0-4 bases on nodule(s) with highest degree of suspicion. Negative screen is defined as categories 1 and 2; a positive screen is defined as categories 3 and 4. Category 3 and 4A nodules that are unchanged on interval CT should be coded as category 2, and individuals returned to screening in 12 months. Category 4X: Category 3 or 4 nodules with additional imaging findings that increase the suspicion of lung cancer, such as spiculation, GGN that doubles in size in 1 year, enlarged lymph notes, etc. Category Modifiers: S (significant finding unrelated to lung cancer) and C (prior history of treated lung cancer) may be added to the 0-4 Lung-RADS Electronically Signed: Frank Fuentes, at 14:31 EST , Service support ,
== END ==
PROVIDERS: PCP Student in an Organized Health Care Education/Training Program; Referring Provider Nurse Practitioner Family; Visit Provider Nurse Practitioner Family
DX: Z12.2 Encounter for screening for malignant neoplasm of respiratory organs (principal); Z87.891 Personal history of nicotine dependence
CPT/HCPCS: G0297

== ENCOUNTER → 2020-01-03 07:03 | Outpatient (CLI) | payer BC, MEDICARE, SELFPAY ==
[2019-08-07 13:24] VITALS: BMI 32.4
--- NOTE | 2020-01-03 07:05 | BI_ITS ---
MAMMOGRAPHY - BILATERAL SCREENING REASON FOR EXAM: Female, 64 years old. Routine annual screening examination. PERTINENT HISTORY: Non-contributory. TECHNIQUE: Digital bilateral breast sujatha (3D mammographic acquisition) in the CC and MLO projections. 2-D mediolateral oblique (MLO) and craniocaudad (CC) views of both breasts were obtained. CAD: Full Field Digital Mammography with Computer Added Detection was performed. COMPARISON: Comparison is made with prior outside examination dated November 29, 2016. FINDINGS: Breast Composition: There are scattered areas of fibroglandular density. There are no dominant masses or suspicious calcifications. Stable asymmetric breast tissue were more breast tissue is seen in the central outer aspect of the right breast as compared to the left side. No other significant abnormalities are identified. There has been no significant change since the prior study. BI/SCREEN MAMM (CAD) W/SUJATHA BILAT IMPRESSION: Stable bilateral screening mammogram. Yearly follow-up mammogram recommended. (A) ASSESSMENT CATEGORY: BIRADS Category 2: Benign. A letter regarding these results will be sent to the patient by the facility within 30 days. Approximately 10% of breast cancers are not detected by mammography. A normal mammogram should not delay biopsy of a clinically suspicious abnormality. [id number] Electronically Signed: Frank Fuentes, at 9:23 EDT , Service support ,
== END ==
PROVIDERS: PCP Student in an Organized Health Care Education/Training Program; Referring Provider Student in an Organized Health Care Education/Training Program; Visit Provider Student in an Organized Health Care Education/Training Program
DX: Z12.31 Encounter for screening mammogram for malignant neoplasm of breast (principal)
CPT/HCPCS: 77063; 77067

== ENCOUNTER 2020-10-06 11:15 | Observation (INO) | payer OTHER, MEDICARE, SELFPAY ==
[2019-08-07 13:24] VITALS: BMI 32.4
[2020-10-06] VITALS (10 sets, daily range): BP systolic 119–174; BP diastolic 61–83; PULSE 72–123; RESP 15–28; TEMP 35.6–36.9; O2SAT 96–98; BMI 34.0
--- NOTE | 2020-10-06 11:22 | EKG12_ITS ---
Test Reason : CP Blood Pressure : / mmHG Vent. Rate : 087 BPM Atrial Rate : 087 BPM P-R Int : 152 ms QRS Dur : 084 ms QT Int : 376 ms P-R-T Axes : 064 008 080 degrees QTc Int : 452 ms Normal sinus rhythm Normal ECG Confirmed by PUJA MCKEON, KIRIT ([id number]), commissioning editor OPAL QUINTEROS ([id number]) on 10/08/2020 1:07:25 PM Referred By: Confirmed By:KIRIT LUO MD
--- NOTE | 2020-10-06 11:25 | ED.VIS.CHEST ---
History of Present Illness Chief Complaint: Chest Pain Informant: Patient Onset: Weeks - 0.5 to 2.0 weeks Activity at onset: Exertion, Light Activity Timing: Intermittent Quality: Heaviness, Pressure, Tightness Location: Substernal Current Severity: Moderate Worsened By: Exertion Relieved By: Rest Associated Symptoms: Dyspnea Narrative: Patient is six 5-year-old woman with history of diabetes, hypertension, hyperlipidemia and nonobstructive coronary disease. Patient had a cardiac catheterization on July 03, 2019. Ejection fraction was 60%. Left main revealed mild calcification angiographically normal. Left anterior descending artery revealed mild calcification with moderate luminal irregularities up to 50%. Circumflex artery reveals mild luminal irregularities in the right coronary artery revealed mild luminal irregularities. Patient states yesterday she was washing dishes when she became short of breath diaphoretic nauseous with chest tightness. The pain has radiated to the right shoulder. She had several episodes over the last approximate 2 weeks. Her symptoms get better with rest. She does not know how long it takes for her symptoms get better. She did take her baby aspirin today. 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 Hylton. She denies fever, chills night sweats. She denies orthopnea PND. She denies history of VTE. Denies leg pain, swelling discoloration. Prior Similar Symptoms: Yes, With Prior Angina CVD Risk Factors: Hypertension, Diabetes, Hypercholesterolemia, Smoking - Quit smoking 2 years ago PE Risk Factors: Negative for: Recent Travel/Surgery, Recenet Immobilization, Prior DVT or PE, Cancer, OCP + Smoking + >/=35 TAD Risk Factors: Hypertension. Negative for: Marfan's Syndrome, Family History - Past Medical History (1) Diabetes mellitus, type 2 Status: Chronic (2) Dyslipidemia Status: Chronic (3) Essential (primary) hypertension Status: Chronic (4) Nonobstructive atherosclerosis of coronary artery Status: Chronic Past Medical History - Allergies and Home Meds Allergies/Adverse Reactions: Allergies exenatide [From [place]] Allergy (Intermediate, Verified 10/06/20 11:15) Nausea/Vom/Diarrhea Latex, Natural Rubber Adverse Reaction (Verified 10/06/20 11:15) Unknown Primary Care Physician: El Driver DO [Primary Care Provider] - Prior records reviewed: Yes Surgical History: appendectomy, cholecystectomy, hysterectomy, - - Laminectomy Lives: Spouse/ Significant Other Smoking Status: Former smoker Alcohol: Rare Drugs: None - Family History Maternal Family History: Family History (Last Updated 08/07/19 @ 13:15 by Sammie Schmitz) Mother Diabetes CVA (cerebral vascular accident) Father CAD (coronary artery disease) Brother Cancer Brother Cancer Brother Cancer Family History: Reports: High Cholesterol, Heart Disease Paternal Family History: Family History (Last Updated 08/07/19 @ 13:15 by Sammie Schmitz) Mother Diabetes CVA (cerebral vascular accident) Father CAD (coronary artery disease) Brother Cancer Brother Cancer Brother Cancer Family History: Reports: High Cholesterol, Heart Disease, Hypertension Sibling Family History: Family History (Last Updated 08/07/19 @ 13:15 by Sammie Schmitz) Mother Diabetes CVA (cerebral vascular accident) Father CAD (coronary artery disease) Brother Cancer Brother Cancer Brother Cancer Family History: Reports: No pertinent history Review of Systems General: Denies: Chills, Fever, Malaise, Subjective, Sweats Eyes: Denies: Visual changes - bilaterally, Blurred Vision - bilaterally ENT: Denies: Rhinorrhea, Sore throat Cardiovascular: Reports: Chest pain Respiratory: Reports: Dyspnea, Dyspnea on exertion, Orthopnea. Denies: Cough, Sputum, Paroxysmal nocturnal dyspnea, -, - Gastrointestinal: Reports: Nausea. Denies: Abdominal pain, Vomiting, Diarrhea, Constipation, Melena, Hematochezia, -, - Musculoskeletal: Denies: Myalgias, Arthralgias, Neck pain, Back pain, Swelling, Extremity Pain Skin: Denies: Rash, Abscess Neurological: Denies: Headache, Weakness, Parasthesia Endocrine: Denies: Polyuria, Polydipsia Hematologic: Denies: Easy bruising, Easy bleeding Physical Exam Vital Signs/Narrative: Vital Signs Temp Pulse Resp BP Pulse Ox 10/06/20 11:15 96.0 F L 95 18 174/74 H 96 Inital Vital Signs reviewed: Yes General: Well nourished, Well developed, Obese, Acute Distress - Patient is tachypneic and appears dyspneic. Head: Normocephalic, Atraumatic Eyes: Perrl, EOMI. Negative for: Pale conjunctiva, Scleral icterus ENT: Moist mucous membranes, No rhinorrhea Neck: Supple, Nontender, No lymphadenopathy, No JVD Cardiovascular: Regular rate, Regular rhythm, No murmurs, Normal S1, Normal S2 Respiratory: CTA bilaterally, Chest nontender, - - Scar noted anterior superior right chest wall due to infection several years ago.. Negative for: No distress Abdomen: Soft, Nontender, Nondistended, Normal bowel sounds Rectal: Deferred Back: Nontender, Normal Inspection Extremities: Nontender, No edema, - - There is no asymmetry, swelling, discoloration, leg vein distention, palpable cords or tenderness along the distribution of the deep venous system. Skin: Normal color, No rash Neurological: Alert, Oriented x3, Cranial nerves II-XII grossly intact, Normal Strength, Normal Sensation, Normal Gait Psychological: Normal affect, Normal Mood Diagnostic/Tx/Re-eval 10/06/20 12:00 Chest 1 View (Portable) [RAD] Stat Laboratory Results 10/06/20 10/06/20 11:35 11:35 WBC 6.2 RBC 4.47 Hgb 13.3 Hct 39.3 MCV 87.9 MCH 29.8 MCHC 33.8 RDW Std Deviation 38.1 RDW Coeff of Siri 11.8 Plt Count 248 MPV 9.3 Immature Gran % (Auto) 0.200 Neut % (Auto) 50.9 Lymph % (Auto) 40.9 [place] % (Auto) 6.6 Eos % (Auto) 0.6 Baso % (Auto) 0.8 Absolute Neuts (auto) 3.2 Absolute Lymphs (auto) 2.54 Nucleated RBC % 0 Sodium 136 Potassium 4.1 Chloride 102 Carbon Dioxide 26.0 Anion Gap 8 BUN 16 Creatinine 0.91 Estim Creat Clear Calc 58.34 Est GFR (MDRD) Af Amer 79 Est GFR (MDRD) Non-Af 66 BUN/Creatinine Ratio 17.6 Glucose 270 H Calcium 9.0 Troponin I < 0.015 Patient was made aware of laboratory results. Cardiology and hospitalist was paged for admission and further testing. - EKG Initial EKG Interpretation: Sinus Rhythm - EKG is a normal sinus rhythm with a ventricular 87. NC interval is 152 ms. Cures duration 84 ms. QT duration 276 ms. Jeddo is normal. EKG is essentially normal. Treatment: Aspirin, NTG SL - Medical Decision Making Zentz with classic exertional angina per rajwinder criteria. Furthermore with pain rating to the right shoulder obturation was 3 times more likely this was cardiac. She was treated with aspirin, nitroglycerin and she still experiencing tight pressure sensation and appropriate blood work. EKG was obtained to rule out acute ST elevation PR. She does not have evidence of acute ST elevation PR. Heart score without troponin level is 6. Critical care time (excluding procedures): Discussing w/Patient &/or Family/Theatre Instructor - 21 minutes, which included obtaining history, physical, documentation, review of prior records, discussion with hospitalist and cardiology. ED Disposition - Plan for ED Patient: Disposition: Acute Care Hospital [facility] Diagnosis: Exertional chest pain, Nonobstructive atherosclerosis of coronary artery, Essential (primary) hypertension, Diabetes mellitus, type 2, Dyslipidemia Referrals: El Driver DO [Primary Care Provider] -
--- NOTE | 2020-10-06 11:29 | ED.RN ---
PHARMACY CALLED TO VERIFY NITRO
[2020-10-06] MEDS: Nitroglycerin SL (ED/IMG/CATH) 0.4 MG TABLET SL (11:30)
[2020-10-06] MEDS: Aspirin 81 MG TAB.CHEW 324 MG PO (11:38)
[2020-10-06 11:45] LABS: Absolute Lymphocyte Count 2.54 X10^3/uL (0.83-4.51); Absolute Neutrophil Count 3.2 X10^3/uL (2.0-7.7); Basophil# 0.05 X10^3/uL; Basophil% 0.8 % (0-1); Eosinophil# 0.04 X10^3/uL; Eosinophils% 0.6 % (0-5); Hematocrit 39.3 % (37-47); Hemoglobin 13.3 g/dL (12.0-15.0); Lymphocyte # 2.54 X10^3/ul (0.83-4.51); Lymphocyte % 40.9 % (19-41); Mean Corp Hgb Conc 33.8 g/dL (32-36); Mean Corpuscular Hgb 29.8 pg (27.0-32.0); Mean Corpuscular Volume 87.9 fL (81-99); Mean Platelet Vol. 9.3 fl (6.2-12.0); Monocyte# 0.41 X10^3/uL; Monocyte% 6.6 % (0-10); NRBC Flagged by Analyzer 0 % (0-5); Neutrophil # 3.16 X10^3/uL (2.7-7.7); Neutrophil % 50.9 % (47-70); Platelet Count 248 K/mm3 (150-450); RBC Distribution Width CV 11.8 % (11.6-14.6); RBC Distribution Width SD 38.1 fl (35.1-43.9); Red Blood Count 4.47 M/mm3 (4.2-5.4); White Blood Count 6.2 K/mm3 (4.4-11.0)
--- NOTE | 2020-10-06 12:00 | RAD_ITS ---
STUDY: X-RAY CHEST REASON FOR EXAM: Female, 65 years old. Chest pain TECHNIQUE: Single AP portable view of the chest. COMPARISON: Comparison is made with prior study dated 07/02/2019. FINDINGS: EKG electrodes are seen. Stable elevation of the right hemidiaphragm. The lungs are clear. There is no demonstrated pleural abnormality. Normal size heart. Normal mediastinum and marci. Normal visualized pulmonary arteries. Normal visualized aortic arch and descending thoracic aorta. Normal visualized thoracic spine. Normal visualized ribs, clavicles, and shoulders. There is no demonstrated abnormality of the visualized soft tissue structures of the upper abdomen. RAD/Chest 1 View (Portable) IMPRESSION: Stable examination. Electronically Signed: Frank Fuentes MD at 12:57 EDT , Service support ,
[2020-10-06 12:02] LABS: Anion Gap 8 (5-15); BUN 16 mg/dL (7-18); BUN/Creat Ratio 17.6 RATIO (10-20); Chloride 102 mmol/L (98-107); Creatinine, Serum 0.91 mg/dL (0.55-1.02); EST Glomerular Filtration Rate 66 mL/min (>60); Est Glom Filt Rate - Afr Amer 79 mL/min (>60); Estimated Creatinine Clearance 58.34 ml/min; Glucose 270 mg/dL (74-106); Potassium 4.1 mmol/L (3.5-5.1); Sodium Level 136 mmol/L (136-145)
--- NOTE | 2020-10-06 12:44 | PCM.HP.STD ---
Problem List (1) Exertional chest pain Status: Acute (2) Nonobstructive atherosclerosis of coronary artery Status: Chronic (3) Essential (primary) hypertension Status: Chronic (4) Chest pain Status: Acute (5) Tobacco user Status: Chronic (6) Dyslipidemia Status: Chronic (7) Diabetes mellitus, type 2 Status: Chronic History of Present Illness Date of Admission: 10/06/20 Chief Complaint: Chest discomfort The patient is a 65 year old F past medical history significant for essential hypertension, dyslipidemia, diabetes mellitus type 2 who presented with chest pain. Patient symptoms started a few days prior to her admission. Discomfort was described as pressure located in the retrosternal region. Patient also had associated GI symptoms including abdominal discomfort as well as excessive belching. On the morning of her presentation she did develop chest pain necessitating her presenting to the emergency department. Patient has been seen over a year ago with similar presentation underwent left heart catheterization which demonstrated mild calcification and angiographically normal left main, mild calcification and moderate luminal irregularities up to 50% in the LAD and mild luminal irregularities in circumflex and RCA. Procedure was performed on 07/03/2019. Past Medical History Past Medical History (Chronic Problems): Chronic Problems (Last Updated 10/06/20 @ 13:09 by Kayleen Vásquez) Nonobstructive atherosclerosis of coronary artery (Chronic) Essential (primary) hypertension (Chronic) Tobacco user (Chronic) Dyslipidemia (Chronic) Diabetes mellitus, type 2 (Chronic) Medical History: Medical History (Last Reviewed 10/06/20 @ 13:[address] 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 Cellulitis L03.90 Allergies exenatide [From Byetta] Allergy (Intermediate, Verified 10/06/20 11:15) Nausea/Vom/Diarrhea Latex, Natural Rubber Adverse Reaction (Verified 10/06/20 11:15) Unknown Home Medications: Ambulatory Orders Medication Instructions Recorded Insulin Regular, Human [Novolin R] 26 unit SUBCUT DAILY@0800 07/23/15 Aspirin [Adult Low Dose Aspirin EC] 81 mg PO DAILY 02/05/16 Duloxetine HCl 60 mg PO DAILY 02/05/16 Gabapentin [Gralise] 600 mg PO QHS 02/05/16 Glimepiride [Amaryl] 2 mg PO DAILY 02/05/16 Lisinopril [Zestril] 30 mg PO DAILY 02/05/16 Omeprazole 40 mg PO DAILY 07/02/19 Vit C/E/Zn/Coppr/Lutein/Zeaxan 1 cap PO BID 07/02/19 [Preservision Areds 2 Softgel] traZODone [Desyrel] 100 mg PO QHS 07/02/19 Atorvastatin Calcium [Lipitor] 40 mg PO QHS #30 tab 07/03/19 calcium carbonate 500 mg calcium 500 mg PO DAILY 08/07/19 (1,250 mg) tablet cholecalciferol (vitamin D3) 50 50 mcg PO DAILY 08/07/19 mcg (2,000 unit) capsule Surgical History: Surgical History (Last Reviewed 10/06/20 @ 13:[address] 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 Issa Teixeira MD) Mother Diabetes CVA (cerebral vascular accident) Father CAD (coronary artery disease) Brother Cancer Brother Cancer Brother Cancer History Items: High Cholesterol, Heart Disease Paternal Family History: Family History (Last Reviewed 10/06/20 @ 13:[address] Issa Teixeira MD) Mother Diabetes CVA (cerebral vascular accident) Father CAD (coronary artery disease) Brother Cancer Brother Cancer Brother Cancer History Items: High Cholesterol, Heart Disease, Hypertension Sibling Family History: Family History (Last Reviewed 10/06/20 @ 13:[address] Issa Teixeira MD) Mother Diabetes CVA (cerebral vascular accident) Father CAD (coronary artery disease) Brother Cancer Brother Cancer Brother Cancer History Items: No pertinent history Review of Systems Constitutional: Denies: Anorexia, Chills, Fever, Night Sweats, Weight Change HEENT: Denies: Head Aches, Sinus Congestion, Sinus Drainage Cardiovascular: Reports: Chest Pain. Denies: Orthopnea, Palpitations, Paroxysmal Noc. Dyspnea Respiratory: Reports: Shortness of Breath. Denies: Cough, Shortness of breath at rest, Sputum production Gastrointestinal: Reports: Abdominal Pain, Nausea. Denies: Hematemesis, Hematochezia, Melena, Vomiting Genitourinary: Denies: Dysuria, Frequency, Hematuria, Urgency Musculoskeletal: Denies: Joint Pain, Joint Tenderness Skin: Denies: Rash Neurological: Denies: Focal weakness, Numbness, Tingling Psychiatric: Denies: Homicidal Ideations, Suicidal Ideations Hematologic/ Lymphatic: Denies: Easy Bruising, Easy Bleeding VTE Information - Inpt Only VTE Present on Admission: No VTE Mechan Device Prophylaxis: None VTE Pharm Prophylaxis ordered?: Yes Patient Problems: Active and Suspected Problems (Last Updated 10/06/20 @ 13:09 by Kayelen Vásquez) Exertional chest pain (Acute) Objective: GENERAL: cooperative HEENT: Atraumatic; EYES; Anicteric, Normal Conjunctiva NECK; supple, normal thyroid, RESPIRATORY: Diminished to auscultation CARDIOVASCULAR: Regular S1 S2, GI: soft, normoactive bowel sounds, : No Renal angle tenderness; EXTREMITIES: No edema, no clubbing, MUSCULOSKELETAL: no muscle waisting NEURO: Awake; no lateralizing signs. SKIN: No Rash PSYCH; Flat affect - Physical Exam Vitals/I&O's: Vital Signs Temp Pulse Resp BP Pulse Ox 96.0 F L 123 H 15 141/63 H 97 10/06/20 11:15 10/06/20 12:36 10/06/20 11:42 10/06/20 11:42 10/06/20 11:42 Oxygen Delivery Method Room Air Weight: 98.4 kg Body Mass Index (BMI) 34.0 Finger Stick Blood Glucose 167 Laboratory Results 10/06/20 11:35: WBC 6.2, RBC 4.47, Hgb 13.3, Hct 39.3, MCV 87.9, MCH 29.8, MCHC 33.8, RDW Std Deviation 38.1, RDW Coeff of Siri 11.8, Plt Count 248, MPV 9.3, Immature Gran % (Auto) 0.200, Neut % (Auto) 50.9, Lymph % (Auto) 40.9, [place] % (Auto) 6.6, Eos % (Auto) 0.6, Baso % (Auto) 0.8, Absolute Neuts (auto) 3.2, Absolute Lymphs (auto) 2.54, Nucleated RBC % 0 10/06/20 11:35: Sodium 136, Potassium 4.1, Chloride 102, Carbon Dioxide 26.0, Anion Gap 8, BUN 16, Creatinine 0.91, Estim Creat Clear Calc 58.34, Est GFR (MDRD) Af Amer 79, Est GFR (MDRD) Non-Af 66, BUN/Creatinine Ratio 17.6, Glucose 270 H, Calcium 9.0, Troponin I < 0.015 Current Medications Nitroglycerin (Nitroglycerin Sl (Ed/Img/Cath) 0.4 Mg Tablet) 0.4 mg SL Q5M PRN PRN Reason: Chest pain Last Admin: 10/06/20 11:30 Dose: 0.4 mg Documented by: Assessment/Plan All Active Problems (Last Updated 10/06/20 @ 13:09 by Kayleen Vásquez) Exertional chest pain (Acute) Chest pain (Acute) FEVER (Resolved) Patient is a 65-year-old lady presented with chest discomfort and dyspepsia 1. Chest pain ?Admitted to monitored bed ruling out WA with serial cardiac enzymes patient to undergo a nuclear stress test once WA is ruled out. If patient stress test comes back negative patient will be referred to her primary care physician for GI work-up 2. Hypertension - Blood pressure controlled, home medications continued with dose adjustment as needed 3. Diabetes mellitus type II -patient's oral hypoglycemics held. Placed on long acting insulin, Accu-Cheks a.c. and at bedtime and covered with sliding scale insulin 4. Dyslipidemia -Patient is on statin therapy, continued at home dose 5. Obesity with BMI of 34 ?Weight loss advised 6. GERD ?Patient on PPI 7. DVT prophylaxis ?Lovenox OBSV E&M: [id number] Initial observation care L3
--- NOTE | 2020-10-06 14:12 | ECHOD_ITS ---
Reason For Study: CHEST PAIN Procedure This was a 2D Doppler, Color Flow transthoracic echocardiogram. The study was technically difficult. Exam performed portable in patient room. Left Ventricle Normal LV size. The estimated ejection fraction is 60 %. No evidence for diastolic dysfunction. No regional wall motion abnormalities noted. Right Ventricle Normal RV size. Normal systolic function. Atria Normal left atrium. Normal right atrium. No doppler evidence for ASD. Mitral Valve There is no mitral valve stenosis. No mitral valve insufficiency. Tricuspid Valve There is no tricuspid stenosis. Trivial tricuspid valve insufficiency. Unable to estimate RV systolic pressure due to insufficient tricuspid regurgitant envelope. Aortic Valve Trisinus/trileaflet aortic valve. Aortic sclerosis, no stenosis. Mild (1+) aortic valve insufficiency. Pulmonic Valve There is no pulmonic valvular stenosis. No pulmonic valve insufficiency. Great Vessels Normal aortic root. Pericardium/Pleural No pericardial effusion. MMode/2D Measurements & Calculations LVIDd: 4.3 cm IVSd: 1.1 cm Ao root diam: 3.6 cm LVIDs: 2.8 cm LVPWd: 1.0 cm RVDd: 4.0 cm FS: 33.8 % LAV(MOD-bp): 55.8 ml LA A4 area: 18.0 cm2 LA dimension(2D): 4.5 cm LAV(MOD-bp) Indexed: 26.6 ml/m2 LAV(MOD-sp2): 61.1 ml LAV(MOD-sp4): 49.8 ml RA A4 area: 13.4 cm2 Time Measurements MV dec time: 0.31 sec Doppler Measurements & Calculations MV E max joni: 73.4 cm/sec Ao V2 max: 144.0 cm/sec AI max joni: 310.4 cm/sec MV A max joni: 124.3 cm/sec Ao max P.3 mmHg AI max P.6 mmHg MV E/A: 0.59 AI dec slope: 188.5 cm/sec2 AI P1/2t: 482.5 msec LV V1 max: 100.1 cm/sec PA V2 max: 132.7 cm/sec LV V1 max P.0 mmHg ECHO/Echo Complete Interpretation Summary The estimated ejection fraction is 60 %. No evidence for diastolic dysfunction. Aortic sclerosis, no stenosis. Mild (1+) aortic valve insufficiency. Ordering Physician: sIsa Teixeira Referring Physician: KENTON CARRANZA Performed By: Edna Martinez RDCS, RVT
--- NOTE | 2020-10-06 14:12 | EKG12_ITS ---
Test Reason : AM EKG Blood Pressure : / mmHG Vent. Rate : 069 BPM Atrial Rate : 069 BPM P-R Int : 170 ms QRS Dur : 086 ms QT Int : 424 ms P-R-T Axes : 059 010 047 degrees QTc Int : 454 ms Normal sinus rhythm Normal ECG Confirmed by PUJA MCKEON, KIRIT ([id number]), graphic editor OPAL QUINTEROS ([id number]) on 10/08/2020 1:14:01 PM Referred By: ELINA Confirmed By:KIRIT LUO MD
--- NOTE | 2020-10-06 15:43 | CON.PCM_ITS ---
Reason for Consult Date of Consultation: 10/06/20 History of Present Illness: The patient is a 65 year old F [presented to the emergency room with retrosternal chest discomfort. She has had this in the past and underwent coronary angiography in June of last year which revealed nonobstructive coronary artery disease. First set of cardiac enzymes have been negative. Review of systems: All systems reviewed. All else is negative except that in HPI] Past Medical History Allergies/Adverse Reactions: Allergies exenatide [From Byetta] Allergy (Intermediate, Verified 10/06/20 11:15) Nausea/Vom/Diarrhea Latex, Natural Rubber Adverse Reaction (Verified 10/06/20 11:15) Unknown Home Medications: Ambulatory Orders Medication Instructions Recorded Insulin Regular, Human [Novolin R] 26 unit SUBCUT DAILY@0800 07/23/15 Aspirin [Adult Low Dose Aspirin EC] 81 mg PO DAILY 02/05/16 Duloxetine HCl 60 mg PO DAILY 02/05/16 Gabapentin [Gralise] 600 mg PO QHS 02/05/16 Glimepiride [Amaryl] 2 mg PO DAILY 02/05/16 Lisinopril [Zestril] 30 mg PO DAILY 02/05/16 Omeprazole 40 mg PO DAILY 07/02/19 Vit C/E/Zn/Coppr/Lutein/Zeaxan 1 cap PO BID 07/02/19 [Preservision Areds 2 Softgel] traZODone [Desyrel] 100 mg PO QHS 07/02/19 Atorvastatin Calcium [Lipitor] 40 mg PO QHS #30 tab 07/03/19 calcium carbonate 500 mg calcium 500 mg PO DAILY 08/07/19 (1,250 mg) tablet cholecalciferol (vitamin D3) 50 50 mcg PO DAILY 08/07/19 mcg (2,000 unit) capsule Past Medical History (Chronic Problems): Chronic Problems (Last Reviewed 10/06/20 @ 13:[address] 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 Issa Teixeira MD) Mother Diabetes CVA (cerebral vascular accident) Father CAD (coronary artery disease) Brother Cancer Brother Cancer Brother Cancer History Items: High Cholesterol, Heart Disease Paternal Family History: Family History (Last Reviewed 10/06/20 @ 13:[address] Issa Teixeira MD) Mother Diabetes CVA (cerebral vascular accident) Father CAD (coronary artery disease) Brother Cancer Brother Cancer Brother Cancer History Items: High Cholesterol, Heart Disease, Hypertension Sibling Family History: Family History (Last Reviewed 10/06/20 @ 13:[address] Issa Teixeira MD) Mother Diabetes CVA (cerebral vascular accident) Father CAD (coronary artery disease) Brother Cancer Brother Cancer Brother Cancer History Items: No pertinent history Lives: Spouse/ Significant Other Smoking Status: Former smoker Alcohol: Rare Drugs: None Objective: Vital Signs Temp Pulse Resp BP Pulse Ox 97.3 F L 81 18 138/63 H 98 10/06/20 13:19 10/06/20 13:19 10/06/20 13:19 10/06/20 13:19 10/06/20 13:19 Oxygen Delivery Method Room Air Weight: 217 lb 1.6 oz Body Mass Index (BMI) 34.0 Finger Stick Blood Glucose 167 General: Awake, Alert, Oriented x 3 HEENT: Atraumatic Oral: Moist Mucosa Neck: Supple Cardiovascular: Regular Rhythm Psych/Mental Status: Appropriate 10/06/20 11:35: WBC 6.2, RBC 4.47, Hgb 13.3, Hct 39.3, MCV 87.9, MCH 29.8, MCHC 33.8, Plt Count 248, MPV 9.3, Immature Gran % (Auto) 0.200, Neut % (Auto) 50.9, Lymph % (Auto) 40.9, [place] % (Auto) 6.6, Eos % (Auto) 0.6, Baso % (Auto) 0.8, Absolute Neuts (auto) 3.2, Nucleated RBC % 0 10/06/20 11:35: Sodium 136, Potassium 4.1, Chloride 102, Carbon Dioxide 26.0, Anion Gap 8, BUN 16, Creatinine 0.91, Est GFR (MDRD) Af Amer 79, Est GFR (MDRD) Non-Af 66, BUN/Creatinine Ratio 17.6, Glucose 270 H, Calcium 9.0, Troponin I < 0.015 10/06/20 14:33: Troponin I < 0.015 Rhythm: EKG: ECHO: Stress Test: Cardiac Cath: PCI: CT Surgery: Holter monitor: EPS: PPM: CXR: Chest CT Scan: Assessment/Plan 1. Chest pain: Agree with ruling out ACS with 3 sets of cardiac enzymes and EKGs. If troponin remains negative then will be reasonable to proceed with Lexiscan stress test. If troponins are elevated then will consider coronary angiography.
[2020-10-06 17:21] LABS: Bedside Glucose 88 mg/dL (70-110)
[2020-10-06] MEDS: Insulin Lispro 100 UNIT/ML INSULN.PEN SC (20:36)
[2020-10-06] MEDS: traZODone 100 MG Tablet PO (20:37)
[2020-10-06] MEDS: Gabapentin 600 MG Tablet PO (20:37)
[2020-10-06] MEDS: Atorvastatin Calcium 40 MG Tablet PO (20:38)
[2020-10-06] MEDS: Multivitamin (Healthy Eyes) Capsule 1 CAP PO (20:38)
[2020-10-06 21:26] LABS: Bedside Glucose 163 mg/dL (70-110)
[2020-10-07 02:45] VITALS: BP 130/58; PULSE 66; RESP 18; TEMP 36.1; O2SAT 98
[2020-10-07 02:59] VITALS: PULSE 64
--- NOTE | 2020-10-07 05:55 | EKG12_ITS ---
Test Reason : CP ADMISSION Blood Pressure : / mmHG Vent. Rate : 074 BPM Atrial Rate : 074 BPM P-R Int : 164 ms QRS Dur : 088 ms QT Int : 390 ms P-R-T Axes : 049 012 060 degrees QTc Int : 432 ms Normal sinus rhythm Normal ECG Confirmed by PUJA MCKEON, KIRIT ([id number]), order editor OPAL QUINTEROS ([id number]) on 10/08/2020 1:16:02 PM Referred By: ELINA Confirmed By:KIRIT LUO MD
[2020-10-07 06:20] VITALS: BP 135/56; PULSE 69; RESP 18; TEMP 36.4; O2SAT 99
[2020-10-07] MEDS: Lisinopril 20 MG Tablet 30 MG PO (06:26)
[2020-10-07] MEDS: Aspirin E.C. 81 MG Tablet PO (06:26)
[2020-10-07 06:40] LABS: Bedside Glucose 192 mg/dL (70-110)
[2020-10-07 07:00] VITALS: PULSE 66
[2020-10-07 07:20] LABS: Absolute Lymphocyte Count 2.31 X10^3/uL (0.83-4.51); Absolute Neutrophil Count 3.1 X10^3/uL (2.0-7.7); Basophil# 0.05 X10^3/uL; Basophil% 0.8 % (0-1); Eosinophils% 1.7 % (0-5); Hematocrit 39.8 % (37-47); Hemoglobin 13.1 g/dL (12.0-15.0); Lymphocyte # 2.31 X10^3/ul (0.83-4.51); Lymphocyte % 38.1 % (19-41); Mean Corp Hgb Conc 32.9 g/dL (32-36); Mean Corpuscular Hgb 29.6 pg (27.0-32.0); Mean Platelet Vol. 8.9 fl (6.2-12.0); Monocyte# 0.54 X10^3/uL; Monocyte% 8.9 % (0-10); NRBC Flagged by Analyzer 0 % (0-5); Neutrophil # 3.05 X10^3/uL (2.7-7.7); Neutrophil % 50.3 % (47-70); Platelet Count 230 K/mm3 (150-450); RBC Distribution Width CV 11.9 % (11.6-14.6); RBC Distribution Width SD 38.8 fl (35.1-43.9); Red Blood Count 4.42 M/mm3 (4.2-5.4); White Blood Count 6.1 K/mm3 (4.4-11.0)
[2020-10-07 07:30] VITALS: O2SAT 96
[2020-10-07 07:49] LABS: Anion Gap 5 (5-15); BUN 15 mg/dL (7-18); BUN/Creat Ratio 18.1 RATIO (10-20); Calcium,Total 8.9 mg/dL (8.5-10.1); Chloride 103 mmol/L (98-107); Creatinine, Serum 0.83 mg/dL (0.55-1.02); EST Glomerular Filtration Rate 73 mL/min (>60); Est Glom Filt Rate - Afr Amer 88 mL/min (>60); Estimated Creatinine Clearance 63.96 ml/min; Glucose 187 mg/dL (74-106); Magnesium 1.7 mg/dL (1.6-2.6); Phosphorus 3.8 mg/dL (2.5-4.9); Potassium 4.1 mmol/L (3.5-5.1); Sodium Level 138 mmol/L (136-145)
[2020-10-07 09:03] VITALS: BP 115/54; PULSE 70; RESP 18; TEMP 36.6; O2SAT 96
[2020-10-07 09:16] LABS: Bedside Glucose 181 mg/dL (70-110)
[2020-10-07] MEDS: Calcium (Elemental) 500 MG Tablet PO (11:03)
[2020-10-07] MEDS: Cholecalciferol (VIT D3) 25 MCG TABLET (1,000 UNITS) 50 MCG PO (11:04)
[2020-10-07] MEDS: DULoxetine Hcl 60 MG Capsule PO (11:04)
[2020-10-07] MEDS: Pantoprazole Sodium 40 MG Tablet PO (11:04)
--- NOTE | 2020-10-07 11:37 | STRESSREP_ITS ---
Stress Test Report Date: 10/07/2020 Procedure: Pharmacologic stress nuclear imaging study Indications: Chest pain Consent: Per the patient Procedure: The patient underwent pharmacologic (Regadenoson) evaluation with a peak heart rate of 95 beats per minute (62%predicted maximal heart rate) and a peak blood pressure of 120/58 mmHg. The baseline ECG demonstrated normal sinus rhythm. EKG during lexiscan infusion revealed no significant ischemic changes. EKG post infusion revealed no significant ischemic changes [There were no cardiac dysrhythmias pretest, during pharmacologic infusion, or recovery]. [There was no complaint of chest discomfort during pharmacologic infusion or recovery]. The examination was discontinued secondary to completion of protocol. Impression: 1. Lexiscan stress test test is negative for Lexiscan infusion induced EKG changes of ischemia. 2. Lexiscan stress test test is negative for Lexiscan infusion induced chest pain. 3. Results of the nuclear portion of the test is as below Myocardial perfusion imaging study: Technique: The patient was injected with 13.9 millicuries of technetium 99m Cardiolite and subsequently rest SPECT Cardiolite nuclear imaging was obtained in the horizontal long, vertical long, and short axis views. The patient underwent pharmacologic [Regadenoson 0.4mg] evaluation. Please see above for details. The patient was injected with 44.4 millicuries of technetium 99m Cardiolite and subsequently stress SPECT Cardiolite nuclear imaging was obtained in the horizontal long, vertical long, and short axis views. A gated Cardiolite study at peak stress was obtained. Interpretation: Rest and stress SPECT Cardiolite nuclear imaging status post realignment, normalization, and attenuation correction demonstrate overall normal myocardial radioisotope uptake. Gated images reveal no significant regional wall motion abnormalities. The reported LVEF is greater than 70%. Impression: 1. There is no evidence of significant ischemia or infarction. 2. Estimated ejection fraction is greater than 70%. This note was generated with [employer] software. It may contain incorrect words, spelling, and punctuation that were not noted in checking the note before signing.
[2020-10-07 12:10] LABS: Bedside Glucose 187 mg/dL (70-110)
--- NOTE | 2020-10-07 12:21 | DCINST_ITS ---
- Discharge Diagnoses Current Active Problems: Current Active and Chronic Problems (Last Reviewed 10/06/20 @ 13:[address] Issa Teixeira MD) Exertional chest pain (Acute) Nonobstructive atherosclerosis of coronary artery (Chronic) Essential (primary) hypertension (Chronic) Chest pain (Acute) Tobacco user (Chronic) Dyslipidemia (Chronic) Diabetes mellitus, type 2 (Chronic) You will use the following diet at home:: Calorie/Carbohydrate Controlled (specify 1200, 1400, etc) - 1800 Discharge Activity: Return to Normal Activity Instructions: ED Chest Pain, Noncardiac Allergies/Adverse Reactions: Allergies exenatide [From Byetta] Allergy (Intermediate, Verified 10/06/20 11:15) Nausea/Vom/Diarrhea Latex, Natural Rubber Adverse Reaction (Verified 10/06/20 11:15) Unknown Medications to take at Discharge Insulin Regular, Human [Novolin R] 26 unit SUBCUT DAILY@0800 07/23/15 Aspirin [Adult Low Dose Aspirin EC] 81 mg PO DAILY 02/05/16 Duloxetine HCl 60 mg PO DAILY 02/05/16 Gabapentin [Gralise] 600 mg PO QHS 02/05/16 Glimepiride [Amaryl] 2 mg PO DAILY 02/05/16 Lisinopril [Zestril] 30 mg PO DAILY 02/05/16 Omeprazole 40 mg PO DAILY 07/02/19 Vit C/E/Zn/Coppr/Lutein/Zeaxan [Preservision Areds 2 Softgel] 1 cap PO BID 07/02/19 traZODone [Desyrel] 100 mg PO QHS 07/02/19 Atorvastatin Calcium [Lipitor] 40 mg PO QHS #30 tab 07/03/19 calcium carbonate 500 mg calcium (1,250 mg) tablet 500 mg PO DAILY 08/07/19 cholecalciferol (vitamin D3) 50 mcg (2,000 unit) capsule 50 mcg PO DAILY 08/07/19 Primary Care Physician: El Driver DO [Primary Care Provider] - Please follow up with your Primary Care Physician in: IN 1 WEEK Test Results: Test results from this visit will be discussed in further detail at your follow- up appointment, if applicable. Please Follow Up With: Heath Bateman MD When: 3-4 WEEKS Proposed Discharge Date: 10/07/20
--- NOTE | 2020-10-07 13:20 | DS.PCM_ITS ---
Discharge Date and Diagnosis - Problem List Patient Problems: Active and Suspected Problems (Last Reviewed 10/06/20 @ 13:[address] Issa Teixeira MD) Exertional chest pain (Acute) Chest pain (Acute) Date of Admission: 10/06/20 Date of Discharge: 10/07/20 - Primary Discharge Diagnosis Acute Problems: Active Problems (Last Reviewed 10/06/20 @ 13:[address] Issa Teixeira MD) Exertional chest pain (Acute) Chest pain (Acute) - Secondary Discharge Diagnosis Chronic Problems: Chronic Problems (Last Reviewed 10/06/20 @ 13:[address] Issa Teixeira MD) Nonobstructive atherosclerosis of coronary artery (Chronic) Essential (primary) hypertension (Chronic) Tobacco user (Chronic) Dyslipidemia (Chronic) Diabetes mellitus, type 2 (Chronic) Hospital Course and Treatment Imaging Results: Clinical Impression(s) from Imaging Studies Chest X-Ray 10/06/20 12:00 IMPRESSION: Stable examination. Electronically Signed: Frank Fuentes MD at 12:57 EDT , Service support , Echocardiogram 10/06/20 14:12 Interpretation Summary The estimated ejection fraction is 60 %. No evidence for diastolic dysfunction. Aortic sclerosis, no stenosis. Mild (1+) aortic valve insufficiency. Ordering Physician: Issa Teixeira Referring Physician: EL DRIVER Performed By: Edna Martinez, BABARCS, RVT Operations: None Summary of Care Provided: Patient is a 65-year-old lady presented with chest discomfort and dyspepsia 1. Chest pain ?Admitted to monitored bed ruling out DE with serial cardiac enzymes patient to undergo a nuclear stress test once DE is ruled out. If patient stress test comes back negative patient will be referred to her primary care physician for GI work-up -Went to nuclear stress test which was negative for stress-induced ischemia. Patient was discharged home instructed to follow-up with PCP for subsequent GI work-up as outpatient 2. Hypertension - Blood pressure controlled, home medications continued with dose adjustment as needed 3. Diabetes mellitus type II -patient's oral hypoglycemics held. Placed on long acting insulin, Accu-Cheks a.c. and at bedtime and covered with sliding scale insulin 4. Dyslipidemia -Patient is on statin therapy, continued at home dose 5. Obesity with BMI of 34 ?Weight loss advised 6. GERD ?Patient on PPI 7. DVT prophylaxis ?Lovenox Patient Problems: Active and Suspected Problems (Last Reviewed 10/06/20 @ 13:[address] Issa Teixeira MD) Exertional chest pain (Acute) Chest pain (Acute) - Physical Exam Vitals/I&O's: Vital Signs Temp Pulse Resp BP Pulse Ox 97.9 F 70 18 115/54 L 96 10/07/20 09:03 10/07/20 09:03 10/07/20 09:03 10/07/20 09:03 10/07/20 09:03 Oxygen Delivery Method Room Air Weight: 98.475 kg Body Mass Index (BMI) 34.0 Finger Stick Blood Glucose 167 Intake and Output for Last 24 Hours 10/05/20 10/06/20 10/07/20 23:59 23:59 23:59 Intake Total 240 / 540 540 / 540 Balance 240 / 540 540 / 540 General: Alert HEENT: Atraumatic Lungs: Diminished Cardiovascular: Regular rate Neurological: Neuro grossly intact Psych/Mental Status: Normal Affect Laboratory Results 10/06/20 14:33: Troponin I < 0.015 10/06/20 17:16: POC Glucose 88 10/06/20 17:22: Troponin I < 0.015 10/06/20 20:35: POC Glucose 163 H 10/07/20 06:24: POC Glucose 192 H 10/07/20 07:03: Sodium 138, Potassium 4.1, Chloride 103, Carbon Dioxide 30.0, Anion Gap 5, BUN 15, Creatinine 0.83, Estim Creat Clear Calc 63.96, Est GFR (MDRD) Af Amer 88, Est GFR (MDRD) Non-Af 73, BUN/Creatinine Ratio 18.1, Glucose 187 H, Calcium 8.9, Phosphorus 3.8, Magnesium 1.7 10/07/20 07:03: WBC 6.1, RBC 4.42, Hgb 13.1, Hct 39.8, MCV 90.0, MCH 29.6, MCHC 32.9, RDW Std Deviation 38.8, RDW Coeff of Siri 11.9, Plt Count 230, MPV 8.9, Immature Gran % (Auto) 0.200, Neut % (Auto) 50.3, Lymph % (Auto) 38.1, [place] % (Auto) 8.9, Eos % (Auto) 1.7, Baso % (Auto) 0.8, Absolute Neuts (auto) 3.1, Absolute Lymphs (auto) 2.31, Nucleated RBC % 0 10/07/20 09:07: POC Glucose 181 H 10/07/20 12:06: POC Glucose 187 H Current Medications Acetaminophen (Acetaminophen 325 Mg Tablet) 650 mg PO Q6H PRN PRN PRN Reason: Pain Score 1-10/Temp > 100.7 F Al Hydroxide/Mg Hydroxide (Mag Hydrox/Al Hydrox/Simeth 30 Ml Udc) 30 ml PO Q6H PRN PRN PRN Reason: Gastric Burning Albuterol Sulfate (Albuterol 2.5 Mg/3 Ml Vial.Neb.) 2.5 mg INHALATION Q2H PRN PRN PRN Reason: SOB/Wheezing Aspirin (Aspirin E.C. 81 Mg Tablet) 81 mg PO DAILY@0800 [facility] Last Admin: 10/07/20 06:26 Dose: 81 mg Documented by: Atorvastatin Calcium (Atorvastatin Calcium 40 Mg Tablet) 40 mg PO QHS [facility] Last Admin: 10/06/20 20:38 Dose: 40 mg Documented by: Calcium Carbonate (Calcium (Elemental) 500 Mg Tablet) [facility]: 10/07/20 11:03 Dose: 500 mg Documented by: Cholecalciferol (Cholecalciferol (Vit D3) 25 Mcg Tablet (1,000 Units)) 50 mcg PO DAILY [facility] Last Admin: 10/07/20 11:04 Dose: 50 mcg Documented by: Dextrose (Dextrose 50%-Water 25 Gm/50 Ml Disp.Syrin) 0 gm IV X1 PRN; Protocol PRN Reason: Hypoglycemia Duloxetine HCl (Duloxetine Hcl 60 Mg Capsule) 60 mg PO DAILY [facility] Last Admin: 10/07/20 11:04 Dose: 60 mg Documented by: Enoxaparin Sodium (Enoxaparin 40 Mg/0.4 Ml Syringe) 40 mg SC DAILY [facility] Last Admin: 10/07/20 11:05 Dose: Not Given Documented by: Gabapentin (Gabapentin 600 Mg Tablet) 600 mg PO QHS [facility] Last Admin: 10/06/20 20:37 Dose: 600 mg Documented by: Glucagon (Glucagon 1 Mg/Ml Syringe) 1 mg IM .X1 PRN PRN Reason: Hypoglycemia Guaifenesin (Guaifenesin 10 Ml Udc (200mg/10ml)) 20 ml PO Q4H PRN PRN PRN Reason: COUGH Insulin Glargine (Insulin Glargine 100 Units/Ml Pen) 32 units SC BREAKFAST [facility] Last Admin: 10/07/20 09:17 Dose: Not Given Documented by: Insulin Glargine (Insulin Glargine 100 Units/Ml Pen) 40 units SC DINNER [facility] Last Admin: 10/06/20 17:27 Dose: Not Given Documented by: Insulin Human Lispro (Insulin Lispro 100 Unit/Ml Insuln.Pen) 0 unit SC ACHS [facility]; Protocol Last Admin: 10/07/20 12:07 Dose: Not Given Documented by: Insulin Human Lispro (Insulin Lispro 100 Unit/Ml Insuln.Pen) 26 unit SC DAILY@0800 [facility] Last Admin: 10/07/20 09:17 Dose: Not Given Documented by: Lisinopril (Lisinopril 20 Mg Tablet) 30 mg PO DAILY [facility] Last Admin: 10/07/20 06:26 Dose: 30 mg Documented by: Melatonin (Melatonin 3 Mg Tablet) 3 mg PO QHS PRN PRN PRN Reason: INSOMNIA Multivitamins/Minerals (Multivitamin (Healthy Eyes) Capsule) 1 capsule PO BID [facility] Last Admin: 10/07/20 11:05 Dose: Not Given Documented by: Nitroglycerin (Nitroglycerin (Inpatient Use) 0.4 Mg Tab.Subl) 0.4 mg SL Q5M PRN PRN Reason: CARDIAC/CHEST PAIN Ondansetron HCl (Ondansetron 4 Mg/2 Ml Vial) 4 mg IV Q8H PRN PRN PRN Reason: NAUSEA/VOMITING Oxycodone HCl (Oxycodone 5 Mg Tablet) 5 mg PO Q4H PRN PRN PRN Reason: Pain Score 4-5 Oxycodone HCl (Oxycodone 5 Mg Tablet) 10 mg PO Q4H PRN PRN PRN Reason: Pain Score 6-10 Pantoprazole Sodium (Pantoprazole Sodium 40 Mg Tablet) 40 mg PO DAILY [facility] Last Admin: 10/07/20 11:04 Dose: 40 mg Documented by: Senna/Docusate Sodium (Senna/Docusate Sodium 1 Tablet) 2 tablet PO BID PRN PRN PRN Reason: Constipation Trazodone HCl (Trazodone 100 Mg Tablet) 100 mg PO QHS [facility] Last Admin: 10/06/20 20:37 Dose: 100 mg Documented by: Discharge Diet: 1800 Calorie Control Diet Discharge Activity: Return to Normal Activity Home Medications: Medications to take at Discharge Insulin Regular, Human [Novolin R] 26 unit SUBCUT DAILY@0800 07/23/15 Aspirin [Adult Low Dose Aspirin EC] 81 mg PO DAILY 02/05/16 Duloxetine HCl 60 mg PO DAILY 02/05/16 Gabapentin [Gralise] 600 mg PO QHS 02/05/16 Glimepiride [Amaryl] 2 mg PO DAILY 02/05/16 Lisinopril [Zestril] 30 mg PO DAILY 02/05/16 Omeprazole 40 mg PO DAILY 07/02/19 Vit C/E/Zn/Coppr/Lutein/Zeaxan [Preservision Areds 2 Softgel] 1 cap PO BID 07/02/19 traZODone [Desyrel] 100 mg PO QHS 07/02/19 Atorvastatin Calcium [Lipitor] 40 mg PO QHS #30 tab 07/03/19 calcium carbonate 500 mg calcium (1,250 mg) tablet 500 mg PO DAILY 08/07/19 cholecalciferol (vitamin D3) 50 mcg (2,000 unit) capsule 50 mcg PO DAILY 08/07/19 Primary Care Physician: El Driver DO [Primary Care Provider] - Please follow up with your Primary Care Physician in: IN 1 WEEK Please Follow Up With: Heath Bateman MD When: 3-4 WEEKS Patient Instructions: ED Chest Pain, Noncardiac Disposition: Home Minutes spent on discharge:: 35 Patient Condition:: Stable Medical Necessity - Tobacco Use Smoking Status: Former smoker Meaningful Use Info Meaningful Use Diagnoses (Choose all that apply): None applicable OBSV E&M: 48590 Observation care discharge
--- NOTE | 2020-10-07 13:37 | PHA.DC.MR ---
Pharmacy Service has performed discharge medication reconciliation for this patient. The patient's discharge medication list was reviewed for discrepancies and discrepancies were resolved. Home Medications Insulin Regular, Human [Novolin R] 26 unit SUBCUT DAILY@0800 07/23/15 Aspirin [Adult Low Dose Aspirin EC] 81 mg PO DAILY 02/05/16 Duloxetine HCl 60 mg PO DAILY 02/05/16 Gabapentin [Gralise] 600 mg PO QHS 02/05/16 Glimepiride [Amaryl] 2 mg PO DAILY 02/05/16 Lisinopril [Zestril] 30 mg PO DAILY 02/05/16 Omeprazole 40 mg PO DAILY 07/02/19 Vit C/E/Zn/Coppr/Lutein/Zeaxan [Preservision Areds 2 Softgel] 1 cap PO BID 07/02/19 traZODone [Desyrel] 100 mg PO QHS 07/02/19 Atorvastatin Calcium [Lipitor] 40 mg PO QHS #30 tab 07/03/19 calcium carbonate 500 mg calcium (1,250 mg) tablet 500 mg PO DAILY 08/07/19 cholecalciferol (vitamin D3) 50 mcg (2,000 unit) capsule 50 mcg PO DAILY 08/07/19
== END 2020-10-07 12:22 | disposition home or self-care (01) ==
LOC: ED 12:28 → PCU 12:46
PROVIDERS: Admitting Provider Internal Medicine; Emergency Provider Emergency Medicine; PCP Student in an Organized Health Care Education/Training Program; Visit Provider Internal Medicine
DX: R07.89 Other chest pain (principal); I10 Essential (primary) hypertension; E11.9 Type 2 diabetes mellitus without complications; E78.5 Hyperlipidemia, unspecified; R06.02 Shortness of breath; I25.10 Atherosclerotic heart disease of native coronary artery without angina pectoris; K21.9 Gastro-esophageal reflux disease without esophagitis; E66.9 Obesity, unspecified; Z79.899 Other long term (current) drug therapy; Z79.82 Long term (current) use of aspirin; Z79.4 Long term (current) use of insulin; Z87.891 Personal history of nicotine dependence; Z68.34 Body mass index [BMI] 34.0-34.9, adult
CPT/HCPCS: 36415; 71045; 78452; 80048; 82962; 83735; 84100; 84484; 85025; 93005; 93017; 93306; 99218; 99284; 99406; A9500; Q9957; A4216; G0378; J2785

== ENCOUNTER → 2020-11-18 13:48 | Outpatient (CLI) | payer OTHER, MEDICARE, SELFPAY ==
[2019-08-07 13:24] VITALS: BMI 32.4
[2020-11-18 13:10] VITALS: BMI 34.2
--- NOTE | 2020-11-18 13:50 | CT_ITS ---
STUDY: CT CHEST WITHOUT CONTRAST- LOW DOSE SCREENING PROTOCOL REASON FOR EXAM: Female, 65 years old. Former smoker. Quit smoking less than 10 years ago. 104 pack per year history. No current symptoms of lung cancer or pulmonary infection. Shared decision-making with referring PCP documented in patient''s record. RADIATION DOSAGE (If Supplied By Facility): CTDIvol = ( 2.39 ) mGy, DLP = ( 75.34 ) mGycm TECHNIQUE: Low dose screening CT examination performed from the base of the neck to the upper abdomen. Sagittal and coronal reformatted images performed. Sagittal and coronal MIP images provided. The measurements provided are average, rounded measurements per ACR guidelines. COMPARISON: 08/07/2019 FINDINGS: The lungs are normal. There is no demonstrated pleural abnormality. Normal heart and pericardium. There are calcifications of the coronary arteries. Normal mediastinum. Normal hilar regions. Normal unenhanced pulmonary arteries. Normal aorta arch and descending thoracic aorta. Normal osseous structures. There is no demonstrated abnormality of the visualized upper abdomen. CT/Low Dose CT Lung Screening IMPRESSION: 1. No significant indeterminate incidental findings requiring additional imaging. 2. Incidental findings include calcified coronary artery plaque. ASSESSMENT CATEGORY: LungRADS 1 - Negative. Continue annual screening with LDCT in 12 months, per established ACR guidelines. Electronically Signed: Fredi Villatoro MD at 14:46 EDT Tel , Service support ,
== END ==
PROVIDERS: PCP Student in an Organized Health Care Education/Training Program; Referring Provider Nurse Practitioner Family; Visit Provider Nurse Practitioner Family
DX: Z12.2 Encounter for screening for malignant neoplasm of respiratory organs (principal); Z87.891 Personal history of nicotine dependence
CPT/HCPCS: 71271

== ENCOUNTER → 2021-01-29 08:45 | Outpatient (CLI) | payer OTHER, MEDICARE, SELFPAY ==
[2020-11-18 13:10] VITALS: BMI 34.2
--- NOTE | 2021-01-29 09:00 | BI_ITS ---
MAMMOGRAPHY - BILATERAL DIAGNOSTIC REASON FOR EXAM: Female, 65 years old. Right axillary lump. PERTINENT HISTORY: Non-contributory. TECHNIQUE: Digital bilateral breast michelle (3D mammographic acquisition) in the CC and MLO projections. 2-D mediolateral oblique (MLO) and craniocaudad (CC) views of both breasts were obtained. CAD: Full Field Digital Mammography with Computer Added Detection was performed. COMPARISON: Comparison is made with prior study 01/03/2020. FINDINGS: Breast Composition: There are scattered areas of fibroglandular density. There are no dominant masses or suspicious calcifications. Stable asymmetric breast tissue where more breast tissue is seen in the central outer aspect of the right breast as compared to the left side. No other significant abnormalities are identified. There has been no significant change since the prior study. BI/DIAG MAMM W/CAD, BILAT IMPRESSION: Stable bilateral diagnostic mammogram. One year follow-up recommended. (A) ASSESSMENT CATEGORY: BIRADS Category 2: Benign. A letter regarding these results will be sent to the patient by the facility within 30 days. Approximately 10% of breast cancers are not detected by mammography. A normal mammogram should not delay biopsy of a clinically suspicious abnormality. Electronically Signed: Frank Fuentes MD at 11:13 EDT , Service support ,
--- NOTE | 2021-01-29 10:00 | US_ITS ---
STUDY: ULTRASOUND BREAST - RIGHT REASON FOR EXAM: Female, 65 years old. Right axillary lump. TECHNIQUE: Axial and longitudinal images of the RIGHT breast were performed with a high resolution ultrasound transducer. # OF IMAGES: 18 COMPARISON: Comparison is made with prior mammogram done earlier today. FINDINGS: RIGHT Breast: The right axillary region was examined by ultrasound. No sonographic abnormality is seen. US/Breast Limited Unilateral IMPRESSION: No sonographic abnormality is seen. ASSESSMENT CATEGORY: BIRADS Category 1: Negative. A letter regarding these results will be sent to the patient by the facility within 30 days. Electronically Signed: Frank Fuentes MD at 12:15 EDT , Service support ,
== END ==
PROVIDERS: PCP Student in an Organized Health Care Education/Training Program; Referring Provider Student in an Organized Health Care Education/Training Program; Visit Provider Student in an Organized Health Care Education/Training Program
DX: N63.31 Unspecified lump in axillary tail of the right breast (principal); N64.4 Mastodynia
CPT/HCPCS: 76642; 77062; 77066; G0279

== ENCOUNTER 2022-09-19 13:08 | Emergency (ER) | payer BC, MEDICARE, SELFPAY ==
[2022-09-19 13:09] VITALS: BP 179/63; PULSE 75; RESP 18; TEMP 37; O2SAT 100; BMI 34.8
--- NOTE | 2022-09-19 13:37 | EDS_ITS ---
HPI <DANITA Wells - Last Filed: 09/19/22 22:14> History of Present Illness Chief Complaint: Fall Narrative Narrative: Presenting today after falling in her bathtub this afternoon. She states that she went to turn and must have slipped when she fell backwards onto her back. She states she did hit her head and is reporting some mild head and neck pain. She states she does have a history of chronic neck pain. She states that over the past few days she has been dizzy with positional changes and does have a history of vertigo. She denies any loss of consciousness, seizure-like activity, use of blood thinners, chest pain, shortness of breath, fever, chills, abdominal pain. 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 Neuropathy Nonobstructive atherosclerosis of coronary artery Obesity osteomyelitis left rib Pneumonia Recurrent infections Tobacco user UTI (urinary tract infection) Vision problems Vitamin deficiency Home Medications insulin regular human 100 unit/mL injection solution 26 unit subcut DAILY@0800 diabetes 07/23/15 [History Last Taken 07/02/19 08:00 24 units] aspirin 81 mg tablet,delayed release 81 mg PO DAILY heart health 02/05/16 [History Last Taken 07/01/19 20:00 81 mg] duloxetine 60 mg capsule,delayed release 60 mg PO DAILY anxiety 02/05/16 [History Last Taken 07/02/19 10:00 60 mg] gabapentin 300 mg tablet,extended release 24 hr 600 mg PO QHS nerve pain 02/05/16 [History Last Taken 07/01/19 20:00 600 mg] glimepiride 2 mg tablet 2 mg PO DAILY diabetes 02/05/16 [History Last Taken 07/02/19 10:00 2 mg] lisinopril 30 mg tablet 30 mg PO DAILY blood pressure 02/05/16 [History Last Taken 07/02/19 10:00 30 mg] omeprazole 40 mg capsule,delayed release 40 mg PO DAILY reflux 07/02/19 [History Last Taken 07/02/19 10:00 40 mg] trazodone 100 mg tablet 100 mg PO QHS sleep 07/02/19 [History Last Taken Unknown] vit C 250 mg-vit E 90 mg-zinc 40 mg-copper 1 [id number]-gsqgrk capsule 1 cap PO BID vitamin 07/02/19 [History Last Taken 07/02/19 10:00 1 capsule] atorvastatin 40 mg tablet 40 mg PO QHS cholesterol #30 tabs 07/03/19 [Rx Last Taken Unknown] calcium carbonate 500 mg calcium (1,250 mg) tablet (Calcium 500) 500 mg PO DAILY 08/07/19 [History Last Taken Unknown] cholecalciferol (vitamin D3) 50 mcg (2,000 unit) capsule 50 mcg PO DAILY 08/07/19 [History Last Taken Unknown] zinc 50 mg tablet 100 mg PO DAILY 11/18/20 [History Last Taken Unknown] lactobacillus combination no.9 4 billion cell capsule (Adult 50 Plus Probiotic) 4,000 mmu cells PO DAILY 07/16/21 [History Last Taken Unknown] hydrocodone-acetaminophen 5-325mg 5mg-325mg 1 tab PO Q4H PRN PRN Pain 4 days #10 TABLETS 09/19/22 [Rx Last Taken Unknown] Allergy/AdvReac Type Severity Reaction Status Date / Time exenatide [From [place]] Allergy Intermediate Nausea/Vom/ Verified 09/19/22 13:12 Diarrhea Latex, Natural Rubber AdvReac hives Verified 09/19/22 13:12 mylogram dye Allergy Severe Diarrhea, Uncoded 09/19/22 13:12 vomiting Very Sick Family History Mother Diabetes CVA (cerebral vascular accident) Hypertension High cholesterol Father CAD (coronary artery disease) Brother Cancer Alcoholism Brother Cancer Brother Cancer Daughter Anxiety Sister Depression Diabetes Heart disease High cholesterol Son Diabetes Sister Depression Diabetes Surgical History History of cholecystectomy History of hysterectomy History of laminectomy History of left heart catheterization (07/03/19) Social History (Reviewed 09/19/22 @ 22:10 by DARREN Wells Smoking Status: Former smoker quit date: 06/20/18 pack-years: 47 Tobacco: How many years used: 47 how long ago did patient quit smokin06/20/18 second hand exposure: Yes quit status: quit date established alcohol intake: never substance use type: does not use additional social history: Does Take Aspirin Daily Does Not Take Ibuprofen ROS <DANITA Wells - Last Filed: 09/19/22 22:14> ROS ED Constitutional Constitutional ED: Denies chills or fever(s) Eyes Eyes: Denies blurry vision or diplopia Cardiovascular Cardiovascular: Denies chest pain or palpitations Respiratory/Chest Respiratory/Chest: Denies cough or dyspnea Gastrointestinal Gastrointestinal: Denies abdominal pain, nausea or vomiting Genitourinary Genitourinary ED: Denies dysuria, hematuria or urinary urgency Musculoskeletal Musculoskeletal: Reports arthralgias, myalgias and neck pain; Denies back pain Integumentary Denies abscess, Abrasions or rash Neurologic Neurologic: Denies confusion, dizziness or paresthesias Psychiatric Psychiatric: Denies anxiety, depression, suicidal ideation or suicidal thoughts EXAM <DANITA Wells - Last Filed: 09/19/22 22:14> Physical Exam Const Vital Signs: 09/19/22 13:09 Temperature 98.6 F Temperature Source Temporal Pulse Rate 75 Respiratory Rate 18 Blood Pressure 179/63 H Blood Pressure Mean 101 Pulse Ox 100 Oxygen Delivery Method Room Air <Dr. Omar Hess MD - Last Filed: 09/19/22 14:58> Physical Exam Const Vital Signs: 09/19/22 13:09 Temperature 98.6 F Temperature Source Temporal Pulse Rate 75 Respiratory Rate 18 Blood Pressure 179/63 H Blood Pressure Mean 101 Pulse Ox 100 Oxygen Delivery Method Room Air MDM <DANITA Wells - Last Filed: 09/19/22 22:14> [facility] MDM Narrative Medical decision making narrative: Patient presenting today after falling in her bathtub that was a mechanical fall. She is well-appearing and in no acute distress. She did hit her head but there is no loss of consciousness and she is not on any blood thinners. According to the [place] CT head rule, imaging of the head is not indicated. Patient has full range of motion in her neck, do not feel any neck imaging is necessary. Patient reported that she has had dizziness over the past few days and has a history of vertigo. Rudy-Hallpike maneuver is negative. Anaid worries she might of had a stroke 5 days ago as she has felt a little dizzy and thought she might of had some arm weakness. She is not having any of those symptoms now and has no prior history of stroke. However, she is NIH 0. Likely she has a concussion, she will be given pain control. She has been given RICE instructions. She will be discharged home in stable condition and is comfortable with plan. I have personally performed a face to face assessment of the patient and have reviewed the SANTI Note. I performed a substantive portion of the visit including all aspects of the following. My block findings include: History is remarkable for fall in the shower. She states she is turned. She fell. She thought the curtain would break her fall. She did hit her head. She denies loss conscious. She denies being dazed. She did have nausea without vomiting. She is not on an anticoagulant. She does take a baby aspirin a day. Denies double version, blurred vision loss of vision. Nuys trouble speech or swallowing. She states she has symptoms of vertigo but states it is different. Different types of movement causes her to have the vertigo. Presently she does not have vertigo. She denies black or maroon-colored stool. She denies fever, chills night sweats. She denies cardiac or respiratory symptoms. Exam is patient appears uncomfortable. There is no obvious trauma to the head or face. There is no clinical signs of basilar skull fracture. There is no midline cervical tenderness. Trachea is midline. Alert oriented x3. Motor is 5/5. Sensation intact. DTRs symmetric with no clonus or Babinski sign. Cranials 2 through 12 are intact. There is no dysmetria. Romberg with eyes open and close negative. Rudy-Hallpike maneuver negative. Eye skew test negative. The hints test is negative. Gait observed and unremarkable. She is able to walk on heels and toes. Tandem gait is normal. Medical Decision Making patient had a mechanical fall. By definition she has a concussion. She also has myofascial strain from the fall. She was treated with opiate analgesia. She was not treated with NSAIDs and she is greater than age of 60 with diabetes and hypertension. She was instructed apply ice 6-10 times a day. Other additions or changes: Per the [place] CT head rule imaging of the head is not indicated. Per the [place] rule imaging the neck is not needed. <Dr. Omar Hess MD - Last Filed: 09/19/22 14:58> [facility] Narrative Medical decision making narrative: I have personally performed a face to face assessment of the patient and have reviewed the SANTI Note. I performed a substantive portion of the visit including all aspects of the following. My block findings include: History is remarkable for fall in the shower. She states she is turned. She fell. She thought the curtain would break her fall. She did hit her head. She denies loss conscious. She denies being dazed. She did have nausea without vomiting. She is not on an anticoagulant. She does take a baby aspirin a day. Denies double version, blurred vision loss of vision. Nuys trouble speech or swallowing. She states she has symptoms of vertigo but states it is different. Different types of movement causes her to have the vertigo. Presently she does not have vertigo. She denies black or maroon-colored stool. She denies fever, chills night sweats. She denies cardiac or respiratory symptoms. Exam is patient appears uncomfortable. There is no obvious trauma to the head or face. There is no clinical signs of basilar skull fracture. There is no midline cervical tenderness. Trachea is midline. Alert oriented x3. Motor is 5/5. Sensation intact. DTRs symmetric with no clonus or Babinski sign. Cranials 2 through 12 are intact. There is no dysmetria. Romberg with eyes open and close negative. Grant-Hallpike maneuver negative. Eye skew test negative. The hints test is negative. Gait observed and unremarkable. She is able to walk on heels and toes. Tandem gait is normal. Medical Decision Making patient had a mechanical fall. By definition she has a concussion. She also has myofascial strain from the fall. She was treated with opiate analgesia. She was not treated with NSAIDs and she is greater than age of 58 with diabetes and hypertension. She was instructed apply ice 6-10 times a day. Other additions or changes: Per the [place] CT head rule imaging of the head is not indicated. Per the Nexus rule imaging the neck is not needed. Discharge Plan Triage Chief Complaint: Fall ED Midlevel Provider: Ynes Saldivar ED Provider: Omar Hess Dx/Rx/DC Orders Clinical Impression: Fall, Vertigo, Head injury Instructions: Concussion Dc, Preventing Falls Preparation, ED Vertigo, Unspecified Prescriptions: New hydrocodone-acetaminophen 5-325 mg tablet 1 tab PO Q4H PRN PRN (Reason: Pain) 4 Days Qty: 10 0RF No Action cholecalciferol (vitamin D3) 50 mcg (2,000 unit) capsule 50 mcg PO DAILY calcium carbonate [Calcium 500] 500 mg calcium (1,250 mg) tablet 500 mg PO DAILY zinc 50 mg tablet 100 mg PO DAILY Adult 50 Plus Probiotic 4 billion cell capsule 4,000 mmu cells PO DAILY Rx Instructions: administer with a meal insulin regular human 100 UNIT/ML solution 26 unit subcut DAILY@0800 aspirin 81 MG tablet,delayed release (DR/EC) 81 mg PO DAILY glimepiride 2 MG tablet 2 mg PO DAILY lisinopril 30 MG tablet 30 mg PO DAILY duloxetine 60 MG capsule,delayed release(DR/EC) 60 mg PO DAILY gabapentin 300 MG tablet extended release 24 hr 600 mg PO QHS omeprazole 40 MG capsule,delayed release(DR/EC) 40 mg PO DAILY Label Comments: TAKE 1 CAPSULE TWICE DAILY trazodone 100 MG tablet 100 mg PO QHS vit C,P-Uv-lehoq-lutein-zeaxan 1 EACH capsule 1 cap PO BID atorvastatin 40 MG tablet 40 mg PO QHS Qty: 30 1RF Primary Care Provider: El Driver Referrals: El Driver DO [Primary Care Provider] - 3-5 Days Activity Restrictions/Additional Instructions: Follow-up with your PCP. Return for any worsening of symptoms. Disposition Disposition: Home, Self Care Discharge Date/Time: 09/19/22 14:30
== END 2022-09-19 14:30 | disposition home or self-care (01) ==
LOC: ED 13:43
PROVIDERS: Emergency Provider Emergency Medicine; PCP Student in an Organized Health Care Education/Training Program; Visit Provider Emergency Medicine
DX: R42 Dizziness and giddiness (principal); S09.90XA Unspecified injury of head, initial encounter; I25.10 Atherosclerotic heart disease of native coronary artery without angina pectoris; Z87.891 Personal history of nicotine dependence; W18.2XXA Fall in (into) shower or empty bathtub, initial encounter
CPT/HCPCS: 99282

== ENCOUNTER → 2022-09-21 | Outpatient (CLI) | payer BC, MEDICARE, SELFPAY ==
--- NOTE | 2022-09-21 10:49 | BI_ITS ---
MAMMOGRAPHY - BILATERAL SCREENING REASON FOR EXAM: Female, 67 years old. Routine annual screening examination. PERTINENT HISTORY: Non-contributory. TECHNIQUE: Digital bilateral breast sujatha (3D mammographic acquisition) in the CC and MLO projections. 2-D mediolateral oblique (MLO) and craniocaudad (CC) views of both breasts were obtained. CAD: Full Field Digital Mammography with Computer Added Detection was performed. COMPARISON: Comparison is made with prior studies of January 29, 2021 and January 03, 2020. FINDINGS: Breast Composition: There are scattered areas of fibroglandular density. There are no dominant masses or suspicious calcifications. Stable asymmetric breast tissue or more breast tissue seen in the central outer aspect of the right breast as compared to the left side. Stable small benign-appearing right axillary lymph nodes. No other significant abnormalities are identified. There has been no significant change since the prior study. BI/SCRN MAMM (CAD)W/SUJATHA BILAT IMPRESSION: Stable bilateral screening mammogram. Yearly follow-up mammogram recommended. (A) ASSESSMENT CATEGORY: BIRADS Category 2: Benign. A letter regarding these results will be sent to the patient by the facility within 30 days. Approximately 10% of breast cancers are not detected by mammography. A normal mammogram should not delay biopsy of a clinically suspicious abnormality. [id number] Electronically Signed: Frank Fuentes MD at 11:59 EDT ,
== END | disposition home or self-care (01) ==
PROVIDERS: PCP Student in an Organized Health Care Education/Training Program; Visit Provider Student in an Organized Health Care Education/Training Program
DX: Z12.31 Encounter for screening mammogram for malignant neoplasm of breast (principal)
CPT/HCPCS: 77063; 77067

== ENCOUNTER → 2022-09-28 | Outpatient (CLI) | payer BC, MEDICARE, SELFPAY ==
--- NOTE | 2022-09-28 14:04 | CT_ITS ---
STUDY: LOW DOSE CT LUNG CANCER SCREENING REASON FOR EXAM: Female, 67 years old. 3 pack per day smoker x49 years. Quit 3 years ago RADIATION DOSAGE (If Supplied By Facility): CTDIvol = ( 4.02 ) mGy, DLP = ( 130.89 ) mGycm TECHNIQUE: No contrast was administered. Low dose technique was utilized (average mAS-38 and kVp 120). 1.25 mm axial source images with a slice interval of 1.25-mm were reconstructed in lung windows. 2.5 mm axial source images with a slice interval of 2.5-mm were reconstructed in lung windows. 5.0 mm axial source images with a slice interval of 5.0-mm were reconstructed in soft tissue windows. COMPARISON: 12/18/2020 FINDINGS: Lung windows are normally expanded. No organized infiltrate, effusion, or suspicious noncalcified mass or nodule. Soft tissues show normal-appearing thyroid gland. No suspicious adenopathy. No pericardial effusion but there are calcified coronary vessels. Limited cuts through the upper abdomen do not show a suspicious abnormality. Bony structures show degenerative change CT/Low Dose CT Lung Screening IMPRESSION: Lung-RADS category 2 - Continue annual screening with LDCT in 12 months. IMPORTANT NOTES FOR USE: ACR Lung-RADS Version 1.1 Assessment Categories Release Date: 2018 Category: Coded 0-4 bases on nodule(s) with highest degree of suspicion. Negative screen is defined as categories 1 and 2; a positive screen is defined as categories 3 and 4. Category 3 and 4A nodules that are unchanged on interval CT should be coded as category 2, and individuals returned to screening in 12 months. Category 4X: Category 3 or 4 nodules with additional imaging findings that increase the suspicion of lung cancer, such as spiculation, GGN that doubles in size in 1 year, enlarged lymph notes, etc. Category Modifiers: S (significant finding unrelated to lung cancer) Electronically Signed: Sean Figueroa MD at 14:31 EDT ,
== END | disposition home or self-care (01) ==
PROVIDERS: PCP Student in an Organized Health Care Education/Training Program; Referring Provider Nurse Practitioner Family; Visit Provider Nurse Practitioner Family
DX: Z12.2 Encounter for screening for malignant neoplasm of respiratory organs (principal); Z87.891 Personal history of nicotine dependence
CPT/HCPCS: 71271

== ENCOUNTER 2023-01-20 14:38 | Emergency (ER) | payer BC, MEDICARE, SELFPAY ==
[2023-01-20 14:39] VITALS: BP 161/68; PULSE 70; RESP 14; TEMP 36.4; O2SAT 100; BMI 34.1
--- NOTE | 2023-01-20 15:13 | RAD_ITS ---
EXAM: XR CERVICAL SPINE, 2 OR 3 VIEWS CLINICAL INDICATION: injury TECHNIQUE: Frontal and lateral views of the cervical spine. COMPARISON: No relevant prior studies available. FINDINGS: VERTEBRAE: Unremarkable. Preserved vertebral body height. No acute fracture. No spondylolisthesis. Preservation of the normal cervical lordosis. No significant facet arthropathy. DISC SPACES: There is disc space narrowing at C5-6. There is small anterior osteophyte at that level. SOFT TISSUES: Unremarkable. No prevertebral soft tissue widening. LUNG APICES: Clear. RAD/Cerv Spine 2 or 3 Views IMPRESSION: No acute osseous abnormalities in the cervical spine. There are mild degenerative changes at C5-6 with disc space narrowing and osteophyte formation. Electronically Signed: Enzo Sampson MD at 16:30 EDT ,
--- NOTE | 2023-01-20 15:13 | RAD_ITS ---
EXAM: XR RIGHT SHOULDER COMPLETE, 2 OR MORE VIEWS CLINICAL INDICATION: injury TECHNIQUE: Two or more views of the right shoulder. COMPARISON: No relevant prior studies available. FINDINGS: BONES/JOINTS: There is narrowing of the acromioclavicular joint. Medial aspect of the clavicle is not visualized and may be surgically absent. There is a small soft tissue calcification superior to the greater tuberosity. No acute fracture. No subluxation. Normal alignment. No sclerotic or destructive changes observed. SOFT TISSUES: Unremarkable. No soft tissue swelling or gas. No radiopaque foreign body. RAD/Shoulder min 2 Views IMPRESSION: 1. No acute osseous abnormalities. 2. Narrowing of the acromioclavicular joint. 3. Nonvisualization of the medial aspect of the right clavicle which may be surgically absent. 4. Soft tissue calcification superior to the greater tuberosity which may represent calcific tendinosis. If indicated further evaluation with MRI may be beneficial. Electronically Signed: Enzo Sampson MD at 16:33 EDT ,
--- NOTE | 2023-01-20 15:19 | EDS_ITS ---
HPI History of Present Illness Chief Complaint: Upper Extremity Injury Detail of Chief Complaint: Right shoulder and upper back pain Informant: patient Onset/Context/Timing Onset: Weeks (3+ weeks) Narrative Narrative: Patient presents with right upper back, shoulder, arm pain for at least the last 3 weeks. She states about 2 months ago she fell in her shower. She fell backwards striking her back and hyperflexed her neck. She did not have pain at that time. About 3 or 4 weeks ago she started having pain in her right upper back and into her shoulder. She will have intermittent tingling in her right arm. Pain is definitely worse with movement and certain positions. She was taking Tylenol every 4-6 hours, but states it was starting to make her nauseated so she stopped taking it. She has an appointment to see her PCP in February. [facility] Medical History Agitated depression Anxiety and depression Arthritis Back problem Breast lump Cataracts, bilateral Cellulitis Chronic bronchitis Depression Diabetes mellitus, type 2 Dyslipidemia Encounter for screening for malignant neoplasm of lung in current smoker with 30 pack year history or greater Encounter for screening for malignant neoplasm of lung in former smoker who quit in past 15 years with 30 pack year history or greater Essential (primary) hypertension Former smoker GERD (gastroesophageal reflux disease) High triglycerides History of tobacco use Hormone deficiency Neoplasm of skin of back 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 Neuropathy Nonobstructive atherosclerosis of coronary artery Obesity osteomyelitis left rib Pneumonia Recurrent infections Tobacco user UTI (urinary tract infection) Vision problems Vitamin deficiency Home Medications insulin regular human 100 unit/mL injection solution 35 unit subcut DAILY diabetes 07/23/15 [History Last Taken 07/02/19 08:00 24 units] aspirin 81 mg tablet,delayed release 81 mg PO DAILY heart health 02/05/16 [History Last Taken 07/01/19 20:00 81 mg] duloxetine 60 mg capsule,delayed release 60 mg PO DAILY anxiety 02/05/16 [History Last Taken 07/02/19 10:00 60 mg] gabapentin 300 mg tablet,extended release 24 hr 600 mg PO QHS nerve pain 02/05/16 [History Last Taken 07/01/19 20:00 600 mg] glimepiride 2 mg tablet 2 mg PO DAILY diabetes 02/05/16 [History Last Taken 07/02/19 10:00 2 mg] lisinopril 30 mg tablet 30 mg PO DAILY blood pressure 02/05/16 [History Last Taken 07/02/19 10:00 30 mg] omeprazole 40 mg capsule,delayed release 40 mg PO DAILY reflux 07/02/19 [History Last Taken 07/02/19 10:00 40 mg] trazodone 100 mg tablet 100 mg PO QHS sleep 07/02/19 [History Last Taken Unkn own] vit C 250 mg-vit E 90 mg-zinc 40 mg-copper 1 [id number] capsule 1 cap PO BID vitamin 07/02/19 [History Last Taken 07/02/19 10:00 1 capsule] atorvastatin 40 mg tablet 40 mg PO QHS cholesterol #30 tabs 07/03/19 [Rx Last Taken Unknown] calcium carbonate 500 mg calcium (1,250 mg) tablet (Calcium 500) 500 mg PO DAILY 08/07/19 [History Last Taken Unknown] cholecalciferol (vitamin D3) 50 mcg (2,000 unit) capsule 50 mcg PO DAILY 08/07/19 [History Last Taken Unknown] zinc 50 mg tablet 100 mg PO DAILY 11/18/20 [History Last Taken Unknown] lactobacillus combination no.9 4 billion cell capsule (Adult 50 Plus Probiotic) 4,000 mmu cells PO DAILY 07/16/21 [History Last Taken Unknown] hydrocodone-acetaminophen 5-325mg 5mg-325mg 1 tab PO Q4H PRN PRN Pain 4 days #10 TABLETS 09/19/22 [Rx Last Taken Unknown] cyclobenzaprine 10 mg tablet 10 mg PO TID PRN Muscle Spasm #10 TABLETS 01/20/23 [Rx Last Taken Unknown] hydrocodone-acetaminophen 5-325mg 5mg-325mg 1 tab PO Q6H PRN PRN Pain 3 days #10 TABLETS 01/20/23 [Rx Last Taken Unknown] insulin NPH isoph U-100 human 100 unit/mL subcutaneous suspension (Humulin N NPH U-100 Insulin (isophane susp)) 40 unit subcut DAILY 01/20/23 [History Last Taken Unknown] insulin NPH isoph U-100 human 100 unit/mL subcutaneous suspension (Humulin N NPH U-100 Insulin (isophane susp)) 45 unit subcut DAILY 01/20/23 [History Last Taken Unknown] Allergy/AdvReac Type Severity Reaction Status Date / Time exenatide [From [place]] Allergy Intermediate Nausea/Vom/ Verified 01/20/23 14:42 Diarrhea Latex, Natural Rubber AdvReac hives Verified 01/20/23 14:42 mylogram dye Allergy Severe Diarrhea, Uncoded 09/28/22 13:36 vomiting Very Sick Family History Mother Diabetes CVA (cerebral vascular accident) Hypertension High cholesterol Father CAD (coronary artery disease) Brother Cancer Alcoholism Brother Cancer Brother Cancer Daughter Anxiety Sister Depression Diabetes Heart disease High cholesterol Son Diabetes Sister Depression Diabetes Surgical History History of cholecystectomy History of hysterectomy History of laminectomy History of left heart catheterization (07/03/19) Social History Smoking Status: Former smoker quit date: 06/20/18 pack-years: 47 Tobacco: How many years used: 47 how long ago did patient quit smokin06/20/18 second hand exposure: No quit status: quit date established alcohol intake: never substance use type: does not use additional social history: Does Take Aspirin Daily Does Not Take Ibuprofen ROS ROS ED Constitutional Constitutional ED: Denies chills or fever(s) Eyes Eyes: Denies change in vision or discharge from eye(s) ENT ENT ED: Denies discharge from eye(s), rhinorrhea or sore throat Cardiovascular Cardiovascular: Denies chest pain or palpitations Respiratory/Chest Respiratory/Chest: Denies cough or dyspnea Gastrointestinal Gastrointestinal: Denies abdominal pain, diarrhea, nausea or vomiting Genitourinary Genitourinary ED: Denies dysuria Musculoskeletal Musculoskeletal: Reports back pain, extremity pain and neck pain Integumentary Denies Abrasions or rash Neurologic Neurologic: Reports paresthesias; Denies headache(s) Psychiatric Psychiatric: Denies anxiety or depression Allergic/Immunologic Allergic/Immunologic ED: Denies lip swelling or urticaria EXAM Physical Exam Const Vital Signs: 01/20/23 14:39 Temperature 97.5 F L Temperature Source Temporal Pulse Rate 70 Respiratory Rate 14 Blood Pressure 161/68 H Blood Pressure Mean 99 Pulse Ox 100 Oxygen Delivery Method Room Air Positive well nourished and well developed General Appearance ED: well developed HEENT Reports normocephalic and head/scalp atraumatic Eyes PERRL and EOMs intact bilaterally Neck supple Neck Narrative: No midline cervical tenderness. Chest Wall inspection of chest normal and palpation of chest normal Resp normal respiratory effort and clear to auscultation bilaterally Cardio regular rate and regular rhythm GI normal to inspection, nondistended, normoactive bowel sounds Palpation: soft Back/Spine Back/Spine Narrative: Tenderness in the right thoracic paraspinal muscles. No overlying skin changes. Extremity normal to inspection Neuro oriented x3 and no sensory deficits noted Neuro Narrative: Normal strength and sensation on testing. After patient sits for short time she does state that she started to get some tingling in her right arm. This improves when she lies supine. Sensorium / Orientation: alert Motor Exam: strength 5/5 throughout Psych mental status grossly normal Skin no rashes or lesions noted MDM MDM MDM Narrative Medical decision making narrative: Patient is given [place] and Flexeril. X-rays of the C-spine, chest, and right shoulder are obtained to evaluate for fracture or other acute bony abnormality. Treatment and Re-Evaluation Narrative: Chest x-ray reveals no acute findings per my interpretation. C-spine x-ray per my interpretation reveals chronic arthritic changes. Right shoulder x-rays per my interpretation reveal chronic changes with no evidence of dislocation or fracture. Radiology interpretation is reviewed. Patient was referred to Dr. Gillis for follow-up as I feel a lot of this is from her back wrapping around her shoulder as opposed to it being a shoulder issue itself. She will be given a sling and prescription for [place] and Flexeril. Discharge Plan Triage Chief Complaint: Upper Extremity Injury ED Provider: Eev Rosenthal Dx/Rx/DC Orders Clinical Impression: Paraspinal muscle spasm, Cervical radiculopathy Instructions: ED Radiculopathy, Cervical Prescriptions: New hydrocodone-acetaminophen 5-325 mg tablet 1 tab PO Q6H PRN PRN (Reason: Pain) 3 Days Qty: 10 0RF cyclobenzaprine 10 mg tablet 10 mg PO TID PRN (Reason: Muscle Spasm) Qty: 10 0RF No Action cholecalciferol (vitamin D3) 50 mcg (2,000 unit) capsule 50 mcg PO DAILY calcium carbonate [Calcium 500] 500 mg calcium (1,250 mg) tablet 500 mg PO DAILY zinc 50 mg tablet 100 mg PO DAILY Adult 50 Plus Probiotic 4 billion cell capsule 4,000 mmu cells PO DAILY Rx Instructions: administer with a meal insulin regular human 100 UNIT/ML solution 35 unit subcut DAILY aspirin 81 MG tablet,delayed release (DR/EC) 81 mg PO DAILY glimepiride 2 MG tablet 2 mg PO DAILY lisinopril 30 MG tablet 30 mg PO DAILY duloxetine 60 MG capsule,delayed release(DR/EC) 60 mg PO DAILY gabapentin 300 MG tablet extended release 24 hr 600 mg PO QHS omeprazole 40 MG capsule,delayed release(DR/EC) 40 mg PO DAILY Patient Comments: TAKE 1 CAPSULE TWICE DAILY trazodone 100 MG tablet 100 mg PO QHS vit C,V-Hl-hdyoo-lutein-zeaxan 1 EACH capsule 1 cap PO BID atorvastatin 40 MG tablet 40 mg PO QHS Qty: 30 1RF hydrocodone-acetaminophen 5-325 mg tablet 1 tab PO Q4H PRN PRN (Reason: Pain) 4 Days Qty: 10 0RF Humulin N NPH U-100 Insulin 100 unit/mL suspension 40 unit subcut DAILY Humulin N NPH U-100 Insulin 100 unit/mL suspension 45 unit subcut DAILY Primary Care Provider: El Driver Referrals: El Driver DO [Primary Care Provider] - Saqib Gillis DO [Med Staff - Active Staff] - 1-2 Weeks Disposition Disposition: Home, Self Care
[2023-01-20] MEDS: HYDROcodone Bitartrate/Apap 5/325 Tablet PO (15:38)
[2023-01-20] MEDS: cycloBENZAPRine HCl 10 MG Tablet PO (15:38)
--- NOTE | 2023-01-20 15:50 | RAD_ITS ---
EXAM: XR CHEST, 2 VIEWS CLINICAL INDICATION: injury TECHNIQUE: Frontal and lateral views of the chest. COMPARISON: 10/06/2020 FINDINGS: LUNGS AND PLEURAL SPACES: Unremarkable. No consolidation or edema. No pneumothorax. No effusion. HEART: Unremarkable. Cardiac silhouette not enlarged. MEDIASTINUM: Central airways and mediastinal contour are unremarkable. BONES/JOINTS: Unremarkable. SOFT TISSUES: Unremarkable. RAD/Chest PA and Lateral IMPRESSION: No radiographic evidence of acute cardiopulmonary disease. Electronically Signed: Enzo Sampson MD at 16:30 EDT ,
== END 2023-01-20 17:08 | disposition home or self-care (01) ==
PROVIDERS: Emergency Provider Emergency Medicine; PCP Student in an Organized Health Care Education/Training Program; Visit Provider Emergency Medicine
DX: M47.22 Other spondylosis with radiculopathy, cervical region (principal); E11.40 Type 2 diabetes mellitus with diabetic neuropathy, unspecified; Z79.4 Long term (current) use of insulin; M62.830 Muscle spasm of back; I25.10 Atherosclerotic heart disease of native coronary artery without angina pectoris; E78.5 Hyperlipidemia, unspecified; I10 Essential (primary) hypertension; E66.9 Obesity, unspecified; Z68.34 Body mass index [BMI] 34.0-34.9, adult; Z98.1 Arthrodesis status; Z79.82 Long term (current) use of aspirin; Z79.84 Long term (current) use of oral hypoglycemic drugs; Z79.899 Other long term (current) drug therapy; Z87.891 Personal history of nicotine dependence
CPT/HCPCS: 71046; 72040; 73030; 99283

== ENCOUNTER → 2023-03-03 | Outpatient (CLI) | payer BC, MEDICARE, SELFPAY ==
--- NOTE | 2023-03-03 06:36 | ECHOCS_ITS ---
Reason For Study: Dyspnea/SOB Procedure This was a 2D Doppler, Color Flow transthoracic echocardiogram. The study was technically difficult. Contrast injection was performed. Exam performed in department. Left Ventricle Normal LV size. Mild concentric left ventricular hypertrophy. The left ventricular ejection fraction is 65 %. Normal diastology for age. Right Ventricle Normal right ventricle. Atria The left atrium is mildly enlarged. Normal right atrium. Mitral Valve Trivial mitral valve insufficiency. Tricuspid Valve Normal tricuspid valve. Aortic Valve Aortic sclerosis, no stenosis. Mild (1+) aortic valve insufficiency. Pulmonic Valve The pulmonic valve is not well visualized. Great Vessels Normal sized aortic root. Pericardium/Pleural No pericardial effusion. Medication 22 gauge I.V. with prn adaptor inserted into right arm. Diluted definity 4ml given slow IV push to enhance endocardial definition. MMode/2D Measurements & Calculations LVIDd: 4.8 cm IVSd: 1.3 cm Ao root diam: 3.3 cm LVIDs: 3.0 cm LVPWd: 1.1 cm LA dimension: 4.1 cm RVDd: 4.0 cm FS: 37.0 % LAV(MOD-bp): 72.2 ml LVAd ap4: 33.9 cm2 SV(MOD-sp4): 73.6 ml LAV(MOD-bp) Indexed: 34.2 ml/m2 LVLd ap4: 8.1 cm LAV(MOD-sp2): 64.6 ml EDV(MOD-sp4): 111.5 ml LAV(MOD-sp4): 67.3 ml EDV(sp4-el): 120.4 ml LVAs ap4: 16.9 cm2 LVLs ap4: 6.2 cm ESV(MOD-sp4): 37.9 ml ESV(sp4-el): 38.8 ml EF(MOD-sp4): 66.0 % EF(sp4-el): 67.8 % SV(sp4-el): 81.6 ml LA A4 area: 23.3 cm2 RA A4 area: 16.3 cm2 TAPSE: 1.9 cm Time Measurements MV dec time: 0.25 sec Doppler Measurements & Calculations MV E max rito: 89.0 cm/sec Lat Peak E' Rito: 9.9 cm/sec Med Peak E' Rito: 6.6 cm/sec MV A max rito: 105.6 cm/sec E/E' lat: 9.0 E/E' med: 13.6 MV E/A: 0.84 MV V2 max: 126.5 cm/sec MV P1/2t max rito: 112.2 cm/sec Ao V2 max: 198.3 cm/sec MV max P.4 mmHg MV P1/2t: 89.6 msec Ao max P.7 mmHg MV V2 mean: 70.1 cm/sec Ao V2 mean: 133.5 cm/sec MV mean P.3 mmHg MV dec slope: 366.9 cm/sec2 Ao mean P.2 mmHg MV V2 VTI: 41.8 cm MVA(P1/2t): 2.5 cm2 Ao V2 VTI: 47.1 cm AI max rito: 329.4 cm/sec LV V1 max: 101.6 cm/sec PA V2 max: 100.8 cm/sec AI max P.4 mmHg LV V1 max P.1 mmHg AI dec slope: 172.2 cm/sec2 AI P1/2t: 560.4 msec ECHO/Echo Complete W/ Contrast Interpretation Summary Mild concentric left ventricular hypertrophy. The left ventricular ejection fraction is 65 %. The left atrium is mildly enlarged. Mild (1+) aortic valve insufficiency. Ordering Physician: Kimi Newton Referring Physician: Kimi Newton Performed By: David Downey RCS
--- NOTE | 2023-03-03 12:20 | STRESSREP_ITS ---
Stress Test Report Date: 03/03/2023 Procedure: Pharmacologic stress nuclear imaging study Indications: Chest pain Consent: Per the patient Procedure: The patient underwent pharmacologic (Regadenoson 0.4mg ) evaluation with a peak heart rate of 105 beats per minute (69%predicted maximal heart rate) and a peak blood pressure of 124/58 mmHg. The baseline ECG demonstrated sinus rhythm. The peak pharmacologic ECG demonstrated no ischemic changes. There were no cardiac dysrhythmias pretest, during pharmacologic infusion, or recovery. There was no complaint of chest discomfort during pharmacologic infusion or recovery. The patient was injected with 13.9 millicuries of technetium 99m Cardiolite and subsequently rest SPECT Cardiolite nuclear imaging was obtained in the horizontal long, vertical long, and short axis views. The patient underwent pharmacologic (Regadenoson) evaluation. The patient was injected with 44.8 millicuries of technetium 99m Cardiolite and subsequently stress SPECT Cardiolite nuclear imaging was obtained in the horizontal long, vertical long, and short axis views. A gated Cardiolite study at peak stress was obtained. The examination was stopped secondary to completion of protocol. Rest and stress SPECT Cardiolite nuclear imaging status post realignment, normalization, and attenuation correction demonstrate no fixed or reversible perfusion defects. There is end systolic thickening and brightening. The gated Cardiolite study demonstrates myocardial thickening and inward wall motion. The reported LVEF is 75%. Impression: 1. Pharmacologic (Regadenoson) evaluation 2. Peak pharmacologic ECG with no ischemic changes. 3. There were no cardiac dysrhythmias pretest, during pharmacologic infusion, o r recovery. 5. Rest and stress SPECT Cardiolite nuclear imaging demonstrate relative uniform tracer uptake and myocardial perfusion appearing within normal limits. 6. The gated Cardiolite study reports an LVEF of 75%. This note was generated with [employer] software. It may contain incorrect words, spelling, and punctuation that were not noted in checking the note before signing.
== END | disposition home or self-care (01) ==
LOC: CVS 06:36
PROVIDERS: PCP Student in an Organized Health Care Education/Training Program; Referring Provider Internal Medicine Cardiovascular Disease; Visit Provider Internal Medicine Cardiovascular Disease
DX: R00.2 Palpitations (principal); R06.02 Shortness of breath; R06.09 Other forms of dyspnea; I25.10 Atherosclerotic heart disease of native coronary artery without angina pectoris; R53.83 Other fatigue; Z87.891 Personal history of nicotine dependence
CPT/HCPCS: 78452; 93017; 93306; A9500; Q9957; A4216; C8929; J2785

== ENCOUNTER → 2023-10-11 | Outpatient (CLI) | payer BC, MEDICARE, SELFPAY ==
--- NOTE | 2023-10-11 12:40 | CT_ITS ---
STUDY: LOW DOSE CT LUNG CANCER SCREENING REASON FOR EXAM: Female, 68 years old. Lung cancer screening -- 104 pk yr hx; former smoker; asymptomatic RADIATION DOSAGE (If Supplied By Facility): CTDIvol = ( 4.02 ) mGy, DLP = ( 130.89 ) mGycm TECHNIQUE: No contrast was administered. Low dose technique was utilized (average mAS-38 and kVp 120). 1.25 mm axial source images with a slice interval of 1.25-mm were reconstructed in lung windows. 2.5 mm axial source images with a slice interval of 2.5-mm were reconstructed in lung windows. 5.0 mm axial source images with a slice interval of 5.0-mm were reconstructed in soft tissue windows. COMPARISON: Comparison is made with prior study of September 28, 2022. NODULES: No suspicious nodules are seen. Emphysema: No significant emphysematous changes present. Endobronchial lesion: None Aorta: Mild atherosclerotic plaque formation of the aortic arch. CORONARY ARTERIES: Coronary artery calcification is seen. Heart: Unremarkable Pulmonary artery: Unremarkable Mediastinal nodes: Unremarkable Other chest and abdominal findings: CT/Low Dose CT Lung Screening IMPRESSION: Lung-RADS category 2 - Continue annual screening with LDCT in 12 months. IMPORTANT NOTES FOR USE: ACR Lung-RADS Version 1.1 Assessment Categories Release Date: 2018 Category: Coded 0-4 bases on nodule(s) with highest degree of suspicion. Negative screen is defined as categories 1 and 2; a positive screen is defined as categories 3 and 4. Category 3 and 4A nodules that are unchanged on interval CT should be coded as category 2, and individuals returned to screening in 12 months. Category 4X: Category 3 or 4 nodules with additional imaging findings that increase the suspicion of lung cancer, such as spiculation, GGN that doubles in size in 1 year, enlarged lymph notes, etc. Category Modifiers: S (significant finding unrelated to lung cancer) Electronically Signed: Frank Fuentes MD at 13:15 EDT ,
== END | disposition home or self-care (01) ==
LOC: CT 12:39
PROVIDERS: PCP Student in an Organized Health Care Education/Training Program; Referring Provider Nurse Practitioner Family; Visit Provider Nurse Practitioner Family
DX: Z12.2 Encounter for screening for malignant neoplasm of respiratory organs (principal); Z87.891 Personal history of nicotine dependence
CPT/HCPCS: 71271

== ENCOUNTER 2025-03-20 15:53 | Emergency (ER) | payer MEDICARE, SELFPAY ==
[2025-03-20 15:56] VITALS: BP 121/105; PULSE 72; RESP 18; TEMP 37.2; O2SAT 98
[2025-03-20 15:57] VITALS: BP 121/105; PULSE 72; RESP 18; TEMP 37.2; O2SAT 98
--- NOTE | 2025-03-20 16:34 | EX.ED.DYSGE1 ---
HPI History of Present Illness Chief Complaint: Cellulitis Informant: patient and family (daughter) Narrative Narrative: Patient is a 69-year-old female with a history of DM presenting with right foot pain and erythema. Patient is accompanied by her daughter, who is supplementing history. - Reports severe right foot pain and erythema for the past 1.5 months, worsening over the past week. - Pain is described as excruciating and is not relieved by current analgesics; currently taking Adrian, which she started 2-3 days ago. - Denies fever. - Reports an itchy rash on her left upper arm, which she suspects may be related to Adrian use, latter started 3d ago, but no rash elsewhere. - Denies any other acute issues besides right foot pain and erythema. - Denies any recent trauma to the foot. - Reports a fall 2 months ago, during which she guided herself down and did not sustain any injuries. - Has a history of previous infections. - Recent blood work reportedly negative for gout. - Has a scheduled appointment with a roofing superintendent this coming Tuesday. [facility] Medical History Encounter for screening for malignant neoplasm of lung PAD (peripheral artery disease) SOB (shortness of breath) Carotid artery disease Macular degeneration ASCVD (arteriosclerotic cardiovascular disease) DDD (degenerative disc disease), cervical Cervical radiculopathy Paraspinal muscle spasm Encounter for screening for malignant neoplasm of lung in former smoker who quit in past 15 years with 30 pack year history or greater Former smoker Hemoglobin A1c greater than 8.0% Neoplasm of skin of back 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 Vitamin deficiency Vision problems Pneumonia Neuropathy Recurrent infections Hormone deficiency Anxiety and depression Chronic bronchitis Cataracts, bilateral Breast lump UTI (urinary tract infection) Back problem Arthritis GERD (gastroesophageal reflux disease) Obesity Exertional chest pain (10/06/20) Cellulitis Nonobstructive atherosclerosis of coronary artery Essential (primary) hypertension osteomyelitis left rib Tobacco user Dyslipidemia Diabetes mellitus, type 2 Agitated depression Home Medications ?Medication ?Instructions ?Recorded ?Last Taken ?Type aspirin 81 mg tablet,delayed 81 mg PO DAILY heart health 02/05/16 07/01/19 20:00 History release 81 mg glimepiride 2 mg tablet 2 mg PO DAILY diabetes 02/05/16 07/02/19 10:00 History 2 mg vit C 250 mg-vit E 90 mg-zinc 40 1 cap PO BID vitamin 07/02/19 07/02/19 10:00 History mg-copper 1 [id number]-[id number]-ssthzn 1 capsule capsule atorvastatin 40 mg tablet 40 mg PO QHS cholesterol #30 tabs 07/03/19 Unknown Rx calcium carbonate (Calcium 500) 500 mg PO DAILY 08/07/19 Unknown History cholecalciferol (vitamin D3) 50 50 mcg PO DAILY 08/07/19 Unknown History mcg (2,000 unit) capsule lactobacillus combination no.9 4 4,000 mmu cells PO DAILY 07/16/21 Unknown History billion cell capsule (Adult 50 Plus Probiotic) hydrocodone-acetaminophen 5-325mg 1 tab PO Q6H PRN PRN Pain 3 days 01/20/23 Unknown Rx 5mg-325mg #10 TABLETS insulin NPH isoph U-100 human 100 35 unit subcut QAM 01/26/23 Unknown History unit/mL subcutaneous suspension (Humulin N NPH U-100 Insulin (isophane susp)) insulin NPH isoph U-100 human 100 45 unit subcut QPM 01/26/23 Unknown History unit/mL subcutaneous suspension (Humulin N NPH U-100 Insulin (isophane susp)) insulin regular human 100 unit/mL 37 unit subcut DAILY diabetes 01/26/23 Unknown History injection solution lisinopril 20 mg tablet 30 mg PO DAILY 01/26/23 Unknown History omeprazole 40 mg capsule,delayed 40 mg PO BID reflux 01/26/23 Unknown History release ondansetron 4 mg disintegrating 4 mg PO Q8H PRN nausea and vomiting 01/26/23 Unknown History tablet trazodone 100 mg tablet 200 mg PO QHS sleep 01/26/23 Unknown History mecobalamin (vitamin B12) 1,000 1,000 mcg PO DAILY 01/27/23 Unknown History mcg chewable tablet cephalexin 500 mg capsule 500 mg PO Q6 #40 CAPSULES 03/20/25 Unknown Rx fluconazole 150 mg tablet 150 mg PO .once #1 TAB 03/20/25 Unknown Rx gabapentin 300 mg capsule 1,200 mg PO QHS 03/20/25 Unknown History gabapentin 300 mg capsule 300 mg PO DAILY 03/20/25 Unknown History magnesium oxide 400 mg (241.3 mg 400 mg PO DAILY 03/20/25 Unknown History magnesium) tablet sertraline 50 mg tablet 50 mg PO DAILY 03/20/25 Unknown History tramadol 50 mg tablet 50 - 100 mg PO Q6H PRN PRN pain 03/20/25 Unknown History Allergy/AdvReac Type Severity Reaction Status Date / Time Iodinated Contrast Media Allergy Severe Nausea/Vom/ Verified 03/20/25 15:55 Diarrhea exenatide (From [place]) Allergy Intermediate Nausea/Vom/ Verified 03/20/25 15:55 Diarrhea amoxicillin (From Augmentin) AdvReac Mild Nausea/Vom/ Verified 03/20/25 15:55 Diarrhea cefdinir (From Omnicef) AdvReac Mild Nausea/Vom/ Verified 03/20/25 15:55 Diarrhea clarithromycin (From Biaxin) AdvReac Mild Other Verified 03/20/25 15:55 clavulanic acid (From AdvReac Mild Nausea/Vom/ Verified 03/20/25 15:55 Augmentin) Diarrhea metformin AdvReac Mild Nausea/Vom/ Verified 03/20/25 15:55 Diarrhea Latex, Natural Rubber AdvReac hives Verified 03/20/25 15:55 Family History Mother Diabetes CVA (cerebral vascular accident) Hypertension High cholesterol Father CAD (coronary artery disease) Brother Cancer Alcoholism CAD (coronary artery disease) Brother Cancer CAD (coronary artery disease) Brother Cancer CAD (coronary artery disease) Daughter Anxiety Sister Depression Diabetes Heart disease High cholesterol CAD (coronary artery disease) Son Diabetes Sister Depression Diabetes Surgical History Hx of septic arthritis History of laminectomy History of cholecystectomy History of hysterectomy History of left heart catheterization (07/03/19) Social History Smoking Status: Former smoker quit date: 06/20/18 pack-years: 47 Tobacco: How many years used: 47 how long ago did patient quit smokin06/20/18 second hand exposure: No quit status: quit date established alcohol intake: never substance use type: does not use caffeine: Yes Type: carbonated beverages Number of servings: 4 additional social history: Does Take Aspirin Daily Does Not Take Ibuprofen ROS ROS ED Constitutional Constitutional ED: Denies chills or fever(s) Eyes Eyes: Denies change in vision or diplopia ENT ENT ED: Denies rhinorrhea or sore throat Cardiovascular Cardiovascular: Denies chest pain or palpitations Respiratory/Chest Respiratory/Chest: Denies cough or dyspnea Gastrointestinal Gastrointestinal: Denies abdominal pain, diarrhea, nausea or vomiting Genitourinary Genitourinary ED: Denies dysuria or hematuria Musculoskeletal Musculoskeletal: Reports extremity pain; Denies neck pain Integumentary Reports rash and wounds; Denies Abrasions Neurologic Neurologic: Denies paresthesias or weakness Psychiatric Psychiatric: Reports anxiety; Denies suicidal thoughts EXAM Physical Exam Const Vital Signs: 03/20/25 15:56 03/20/25 15:57 03/20/25 16:55 Temperature 99 F 99 F Temperature Source Oral Oral Pulse Rate 72 72 63 Respiratory Rate 18 18 18 Blood Pressure 121/105 H 121/105 H 138/56 H Blood Pressure Mean 110 110 83 Pulse Ox 98 98 98 Oxygen Delivery Method Room Air Room Air Room Air 03/20/25 16:57 03/20/25 18:00 Temperature 98.5 F 98.5 F Temperature Source Oral Oral Pulse Rate 75 65 Respiratory Rate 14 18 Blood Pressure 121/105 H 154/56 H Blood Pressure Mean 110 88 Pulse Ox 95 98 Oxygen Delivery Method Room Air Room Air Positive well nourished and well developed General Appearance ED: well developed and NAD HEENT Reports moist mucous membranes normocephalic and atraumatic Eyes PERRL and EOMs intact bilaterally Neck full ROM and supple Resp normal respiratory effort and clear to auscultation bilaterally Cardio regular rate, regular rhythm and no murmurs GI non-tender and non-distended Auscultation: normoactive bowel sounds Palpation: soft Back/Spine normal ROM and normal to inspection General Back: other FROM Extremity Extremity Narrative: Hyperemia throughout the entire right forefoot without tenderness except for the lateral dorsal aspect, where there are 2 very small papular sore areas around the fifth toe, there is mild swelling without fluctuance and significant tenderness here, as well as erythema that is relatively linear may be 2 cm wide, emanating diagonally across the dorsum of the forefoot toward the midfoot but not quite all the way to it, progresses approximately 5 cm. All of that very tender again without fluctuance or plantar findings. No subcutaneous emphysema. There is no tenderness more proximally in the ankle, lower leg, or thigh. Full range of motion of the ankle, knee, and hip without difficulty and no inguinal lymphadenopathy or tenderness. DP pulse 2+/4. Left lower extremity normal. Bilateral upper extremities unremarkable except for an urticarial rash and portion of the posterior aspect of the left upper arm but the entire upper arm is not affected and there are no rashes elsewhere. General Extremety ED: Yes tenderness; Negative for edema or pulses abnormal General Extremity: Negative for edema or pulses abnormal Neuro oriented x3, no focal motor deficits and no sensory deficits noted Sensorium / Orientation: alert Motor Exam: strength 5/5 throughout Psych mental status grossly normal and thought process normal Skin Skin Narrative: Skin abnormalities described in the extremity exam above, no other rashes no scleral icterus. No jaundice. MDM MDM MDM Narrative Medical decision making narrative: Labs: (Today) - WBC: Normal - ESR: Normal - CRP: Normal - Lactic acid: Normal Imaging: (Today) X-ray Right Foot (3 views): Normal, showing no signs of osteomyelitis or subcutaneous air. Independently interpreted by Chris minor. Assessment: The patient is a 69-year-old female with PMH of type 2 diabetes mellitus without complications presenting for progressive right foot pain, erythema, and swelling. Given the diabetic status and exam findings, cellulitis is the most likely diagnosis; gout is less likely based on diffuse distribution lateral foot and prior negative testing. Normal WBC, ESR, CRP, lactate, and a normal 3-view right foot x-ray showing no osteomyelitis or subcutaneous air further support uncomplicated cellulitis without deep infection. She is hemodynamically stable and non-septic, so outpatient management is appropriate. I agree with patient and family that there are 2 small papular areas that could be wounds that were superficial, from where the cellulitis started, but there is no clinical evidence of an abscess or anything drainable at this time. Plan: - IV vancomycin 15 mg/kg administered in ED - Morphine given for analgesia; patient reports marked pain relief - Erythema borders outlined with skin marker for progression monitoring - Offered hospital admission; patient declined after discussion - Discharged home with oral antibiotic plan and strict return precautions - Follow-up with podiatry in 1 week already arranged - Education provided to patient and family; all agree with plan Diagnostics: - Labs: WBC, ESR, CRP, and lactate all within normal limits - 3-view right foot x-ray: no bony changes of osteomyelitis; no subcutaneous air; soft-tissue swelling only. Independently interpreted by Chris minor. Reevaluations: - Erythema stable within demarcated line; pain improved post-morphine; patient ambulates with assistance and comfortable with discharge plan Diagnoses: Cellulitis of right foot Type 2 diabetes mellitus without complications Lab Data Attestation: I reviewed the patient's lab results. Labs: Laboratory Results - last 24 hr 03/20/25 16:24 WBC 8.7 RBC 4.19 L Hgb 12.8 Hct 37.4 MCV 89.3 MCH 30.5 MCHC 34.2 RDW Std Deviation 39.8 RDW Coeff of Siri 12.3 Plt Count 234 MPV 9.8 Immature Gran % (Auto) 0.300 Neut % (Auto) 62.4 Lymph % (Auto) 28.9 [place] % (Auto) 7.6 Eos % (Auto) 0.3 Baso % (Auto) 0.5 Absolute Neuts (auto) 5.4 Absolute Lymphs (auto) 2.52 Nucleated RBC % 0 ESR 7 Sodium 139 Potassium 4.1 Chloride 102 Carbon Dioxide 25.4 Anion Gap 12 BUN 21 H Creatinine 0.92 Estim Creat Clear Calc 68.00 Est GFR (MDRD) Non-Af 67 BUN/Creatinine Ratio 23.1 H Glucose 189 H Lactic Acid 1.6 Calcium 9.3 C-React Prot Ext Range < 3.00 Radiography Diagnostic Testing: Clinical Impression(s) from Imaging Studies Foot X-Ray 03/20/25 16:40 IMPRESSION: No acute or aggressive osseous abnormality. Reading Location: [facility] Right foot 3 view x-ray series on my interpretation no evidence of subcutaneous emphysema or bony involvement in the area of clinical possible infection Discharge Plan Triage Chief Complaint: Cellulitis ED Provider: Chris Medina Dx/Rx/DC Orders Clinical Impression: Cellulitis of foot, right, Diabetes mellitus, type 2 Instructions: Cellulitis Dc Prescriptions: New cephalexin 500 mg capsule 500 mg PO Q6 Qty: 40 0RF fluconazole 150 mg tablet 150 mg PO .once Qty: 1 0RF No Action cholecalciferol (vitamin D3) 50 mcg (2,000 unit) capsule 50 mcg PO DAILY calcium carbonate [Calcium 500] 500 mg calcium (1,250 mg) tablet 500 mg PO DAILY Adult 50 Plus Probiotic 4 billion cell capsule 4,000 mmu cells PO DAILY Rx Instructions: administer with a meal ondansetron 4 mg tablet,disintegrating 4 mg PO Q8H PRN (Reason: nausea and vomiting) lisinopril 20 mg tablet 30 mg PO DAILY mecobalamin (vitamin B12) 1,000 mcg tablet,chewable 1,000 mcg PO DAILY insulin regular human 100 unit/mL solution 37 unit subcut DAILY aspirin 81 MG tablet,delayed release (DR/EC) 81 mg PO DAILY glimepiride 2 MG tablet 2 mg PO DAILY vit C,W-Uv-qtshr-lutein-zeaxan 1 EACH capsule 1 cap PO BID atorvastatin 40 MG tablet 40 mg PO QHS Qty: 30 1RF trazodone 100 mg tablet 200 mg PO QHS omeprazole 40 mg capsule,delayed release(DR/EC) 40 mg PO BID Patient Comments: TAKE 1 CAPSULE TWICE DAILY hydrocodone-acetaminophen 5-325 mg tablet 1 tab PO Q6H PRN PRN (Reason: Pain) 3 Days Qty: 10 0RF Humulin N NPH U-100 Insulin 100 unit/mL suspension 35 unit subcut QAM Humulin N NPH U-100 Insulin 100 unit/mL suspension 45 unit subcut QPM tramadol 50 mg tablet 50 - 100 mg PO Q6H PRN PRN (Reason: pain) magnesium oxide 400 mg (241.3 mg magnesium) tablet 400 mg PO DAILY gabapentin 300 mg capsule 300 mg PO DAILY sertraline 50 mg tablet 50 mg PO DAILY gabapentin 300 mg capsule 1,200 mg PO QHS Primary Care Provider: El Driver Referrals: Ole Hamm DPM [Med Staff - Active Staff, Podiatry] - Keep Francesca appointment Activity Restrictions/Additional Instructions: - You received an intravenous dose of the antibiotic vancomycin today (15 mg per kg) to treat the cellulitis in your right foot; please complete any additional antibiotic doses as directed. - Blood tests to check for infection (white blood cell count, inflammation markers, lactic acid) and a three-view x-ray of your right foot showed no signs of bone infection or sepsis. - Keep your podiatry appointment one week from today for further evaluation of your foot. - If redness spreads a significant amount outside of the lines drawn, and/or you are developing fevers, chills, or signs of sepsis, return to the ER. -To prevent antibiotic associated diarrhea and/or C. difficile, eat yogurt or take a probiotic at least once daily while you are on the antibiotics. Print Language: Greek Disposition Disposition: Home, Self Care
[2025-03-20 16:38] VITALS: BMI 34.4
--- NOTE | 2025-03-20 16:40 | RAD_ITS ---
PROCEDURE: RIGHT FOOT MIN 3 VIEWS 03/20/2025 REASON FOR EXAM: PAIN, FALL, POSS INFECTION FOREFOOT TECHNIQUE: Procedure Code: RADFO Modality: DX Procedure: FOOT MIN 3 VIEWS Laterality: Right COMPARISON: None. FINDINGS: No acute fracture or dislocation. Alignment is anatomic. Mild dorsal and plantar calcaneal spurring. No osseous erosion/destruction or periosteal reaction appreciated. No marked soft tissue swelling, subcutaneous emphysema or radiopaque foreign body identified. RAD/Foot min 3 Views IMPRESSION: No acute or aggressive osseous abnormality. Reading Location: [id number]
[2025-03-20 16:47] VITALS: BMI 34.4
[2025-03-20 16:55] VITALS: BP 138/56; PULSE 63; RESP 18; O2SAT 98
[2025-03-20 16:57] VITALS: BP 121/105; PULSE 75; RESP 14; TEMP 36.9; O2SAT 95
[2025-03-20 17:29] LABS: Anion Gap 12 (5-15); BUN 21 mg/dL (4-19); BUN/Creat Ratio 23.1 RATIO (10-20); Calcium,Total 9.3 mg/dL (7.6-11.0); Carbon Dioxide 25.4 mmol/L (21.0-32.0); Chloride 102 mmol/L (98-108); Estimated Creatinine Clearance 68.00 ml/min (50-250); Glucose 189 mg/dL (70-99); Potassium 4.1 mmol/L (3.3-5.1)
[2025-03-20 17:30] LABS: CRP < 3.00 mg/L (0.0-3.0)
--- NOTE | 2025-03-20 17:50 | ED.RN ---
LAB CALLED FOR OUTSTANDING CBC. RESPONSE FROM [facility] IT WILL BE 5-10 MINUTES
[2025-03-20 17:56] LABS: Hematocrit 37.4 % (37-47); Hemoglobin 12.8 g/dL (12.0-15.0); Immature Granulocytes Count 0.030 X10^3/uL (0.0-0.0); Mean Corp Hgb Conc 34.2 g/dL (32-36); Mean Corpuscular Volume 89.3 fL (81-99); Mean Platelet Vol. 9.8 fl (6.2-12.0); NRBC Flagged by Analyzer 0 % (0-5); Platelet Count 234 K/mm3 (150-450); RBC Distribution Width CV 12.3 % (11.6-14.6); RBC Distribution Width SD 39.8 fl (35.1-43.9); Red Blood Count 4.19 M/mm3 (4.2-5.4); White Blood Count 8.7 K/mm3 (4.4-11.0)
[2025-03-20 18:00] VITALS: BP 154/56; PULSE 65; RESP 18; TEMP 36.9; O2SAT 98
[2025-03-20] MEDS: Vancomycin HCl 1,500 MG in 0.9% Normal Saline (500mL Bag) 500 ML 250 MG IV (18:10)
[2025-03-20 21:31] VITALS: BP 146/70; PULSE 78; RESP 18; TEMP 36.8; O2SAT 97
== END 2025-03-20 21:33 | disposition home or self-care (01) ==
PROVIDERS: Emergency Provider Emergency Medicine; PCP Student in an Organized Health Care Education/Training Program; Visit Provider Emergency Medicine
DX: L03.115 Cellulitis of right lower limb (principal); E11.40 Type 2 diabetes mellitus with diabetic neuropathy, unspecified; Z79.4 Long term (current) use of insulin; E11.51 Type 2 diabetes mellitus with diabetic peripheral angiopathy without gangrene; I25.10 Atherosclerotic heart disease of native coronary artery without angina pectoris; I10 Essential (primary) hypertension; Z79.82 Long term (current) use of aspirin; Z79.84 Long term (current) use of oral hypoglycemic drugs; Z79.899 Other long term (current) drug therapy; Z87.891 Personal history of nicotine dependence
CPT/HCPCS: 73630; 80048; 82962; 83605; 85025; 85652; 86140; 96365; 96366; 96375; 99284; A4216; J2405

== ENCOUNTER 2025-05-01 17:16 | Emergency (ER) | payer MEDICARE, SELFPAY ==
[2025-05-01 17:18] VITALS: BP 145/64; PULSE 74; RESP 18; TEMP 37.1; O2SAT 98
--- NOTE | 2025-05-01 17:41 | RAD_ITS ---
PROCEDURE: RIGHT FOOT MIN 3 VIEWS 05/01/2025 REASON FOR EXAM: INFECTION TECHNIQUE: Procedure Code: RADFO Modality: DX Procedure: FOOT MIN 3 VIEWS Laterality: Right COMPARISON: 03/20/2025 FINDINGS: No acute fracture or dislocation appreciated. Relatively well preserved visualized joint spaces. Anatomic alignment. Mild dorsal and plantar calcaneal spurring. No osseous erosion/destruction or periosteal reaction appreciated. No marked soft tissue swelling, subcutaneous emphysema or radiopaque foreign body appreciated. RAD/Foot min 3 Views IMPRESSION: No acute or aggressive osseous abnormality. Radiographs have limited sensitivi ty for early osteomyelitis. If there is strong/persistent clinical concern, suggest MRI or nuclear bone scan. Reading Location: [id number]
[2025-05-01 19:07] VITALS: BP 148/66; PULSE 67; RESP 13; TEMP 36.6; O2SAT 96
[2025-05-01 19:10] VITALS: RESP 14; O2SAT 99
--- OUTSIDE RECORDS SUMMARY | 2025-05-01 19:38 | XMS RPT_ITS | CCD ---
Author Organization [facility] Inform ion Partnership [facility] Care Team Providers Care Windows And Doors Installer Name Role Phone El Driver DO Primary Care Provider EL DRIVER DO Primary Care Physician El Driver DO Primary Care Provider DHARMESH BLANKENSHIP MD Attending Unavail able EL DRIVER DO Primary Care Unavailable Dr. El Driver Primary Care Provider Brianne LEGAL SUPPORT SPECIALIST, LEGAL SUPPORT SPECIALIST-C Lulu Attending Provider Brianne SUAZO, LEGAL SUPPORT SPECIALIST-C Lulu Referring Provider Dr. El Driver Primary Care Provider Dr. El Driver Referring Provider Aman, Dr. Bolden Attending Provider AmanDr. Kimi rivers Referring Provider Aman, Dr. Bolden Other Provider QUENTIN Mas NPC Laura Attending Provider OLINDA CHÁVEZ Attending Unavailable EL DRIVER Primary Care Unavailable Dr. El Driver Primary Care Provider Dr. El Driver Referring Provider Brianne SUAZO LEGAL SUPPORT SPECIALIST-C Lulu Attending Provider El Driver DO Primary Care Provider Ebenezer INSPECTOR MATERIAL DISPOSITION.CLOTH STOCK SORTERAlysha Unavailable Mya INSPECTOR MATERIAL DISPOSITION.Jeanie PRYOR Unavailable Carlota CASTELAN.CLOTH STOCK SORTER, Luz Rafal Unavailable EL DRIVER DO Primary Care Physician KHALIF MCKEON, YAKELIN Attending Unavailable GEGE MCKEON, EBER Consulting Unavailable RONNIE TAMAYO Admitting Unavai lable VILLA DO EL Primary Care Unavailable DRIVER, EL L Primary Care Unavailable PROVIDER, UNKNOWN Referring Unavailable Dr. El Driver DO Primary Care Physician Carol MCKEON, Dr. Perez Emergency Department [facility] Chris Medina Attending Unavailable Driver, El Primary Care Unavailable ADDY OAKES Referring Unavailable DRIVER, EL L Primary Care Unavailable DRIVER, EL L Primary Care Unavailable DRIVER, EL L Referring Unavailable DRIVRE, EL L Primary Care Unavailable DRIVER, EL L Referring Unavailable DRIVER, EL L Primary Care Unavailable ADELE HEBERT Attending Unavailable DRIVER, EL L Primary Care Unavailable LUZ ARITA Attending Unavailable DRIVER, EL L Attending Unavailable SELF Referring Unavailable DRIVER, EL L Primary Care Unavailable DRIVER, EL L Primary Care Unavailable DRIVER, EL L Primary Care Unavailable ALYSHA SOL Referring Unavailabl e DRIVER, EL L Primary Care Unavailable ALYSHA SOL Referring Unavailabl e DRIVER, EL L Primary Care Unavailable RADHA TONY Attending Unavailable DRIVER, EL L Primary Care Unavailable DRIEVR, EL L Primary Care Unavailable SELF Referring Unavailable MEENAKSHI HAMM Attending Unavailable DRIVER, EL L Primary Care Unavailable JULISSA COULTER Referring Unavailable DRIVER, EL L Primary Care Unavailable ALYSHA SOL Attending Unavailabl e DRIVER, EL L Primary Care Unavailable ALYSHA SOL Referring Unavailabl e DRIVER, EL L Primary Care Unavailable DRIVER, EL L Primary Care Unavailable ALYSHA SOL Attending Unavailabl e DRIVER, EL L Primary Care Unavailable MEENAKSHI HAMM Referring Unavailable DRIVER, EL L Primary Care Unavailable DRIVER, EL L Referring Unavailable MEENAKSHI HAMM Attending Unavailable JEANIE CORTEZ Attending Unavailable DRIVER, EL L Primary Care Unavailable TESTRAKE, MEENAKSHI Attending Unavailable EL DRIVER Primary Care Unavailable MEENAKSHI HAMM Referring Unavailable EL DRIVER Primary Care Unavailable ALLIE PAREDES Attending Unavailable MEENAKSHI HAMM Referring Unavailable EL DRIVER Primary Care Unavailable CARSON MURRAY Attending Unavailable ALYSHA SOL Referring Unavailabl e Allergies Allergy Classification Reported Allergen(s) Allergy Type Date of Onset Reaction(s) Facility (20 sources) Amoxicillin / Clavulanate; Translations: [AMOXICILLIN-POT CLAVULANATE] Drug Allergy 04-25-20 18 [facility] (20 sources) cefdinir; Translations: [CEFDINIR] Drug Allergy 04-25-20 18 [facility] (20 sources) Clarithromycin; Translations: [CLARITHROMYCIN] Drug Allergy 03-27-20 07 [facility] Work Phone: Comment on above: metallic taste; can tolerate Zpak (20 sources) exenatide; Translations: [EXENATIDE] Drug Allergy 07-25-19 07 Intolerance [facility] Work Phone: (20 sources) Iodine; Translations: [IODINE] Drug Allergy 01-16-20 04 Swelling [facility] (20 sources) Latex; Translations: [LATEX] Propensity to adverse reactions to drug 09-26-19 15 Unknown [facility] Work Phone: (20 sources) metFORMIN; Translations: [METFORMIN] Drug Allergy 07-25-19 07 Intolerance [facility] Work Phone: (2 sources) misc antibiotic (non-codified) Drug allergy [facility] (7 sources) natural latex rubber Propensity to adverse reactions 09-20-19 23 hives [facility] Comment on above: Was placed on a rubb er mat for a test, broke out into hives (4 sources) mylogram dye Allergy to substance 09-20-19 23 Diarrhea, vomiting Very Sick [facility] (4 sources) Amoxicillin; Translations: [amoxicillin] Drug Allergy 01-28-20 23 Nausea/Vom/Lizzette rrhea, vomiting, "deathly sick" [facility] (3 sources) Clavulanate Drug Allergy 01-28-20 [facility] Triiodobenzoic Acids Allergy to substance 02-04-20 Nausea/Vom/Lizzette [facility] Comment on above: "MYELOGRAM DYE" (1 source) Sulfamethoxazole / Trimethoprim; Translations: [sulfamethoxazole-t rimethoprim] Drug Allergy vomiting, "deathly sick" [facility] (1 source) Amoxicillin Drug Allergy 03-20-20 [facility] (1 source) cefdinir Drug Allergy 03-20-20 [facility] (1 source) Clarithromycin Drug Allergy 03-20-20 [facility] (1 source) Clavulanate Drug Allergy 03-20-20 [facility] (1 source) exenatide Drug Allergy 03-20-20 [facility] (1 source) metFORMIN Drug Allergy 03-20-20 [facility] (1 source) natural latex rubber Drug allergy (disorder) 03-20-20 [facility] (1 source) Iodinated Contrast Media Drug allergy (disorder) 03-20-20 [facility]ository Medications Current Medications Medication Drug Class(es) Dates Sig (Normalized) Sig (Original) ACCU-CHEK GUIDE GLUCOSE METER (20 sources) Start: 12-04-2022 ACCU-CHEK GUIDE GLUCOSE METER USE DIRECTED 1 Each 12/04/2022 Active Start: 12-04-2022 ACCU-CHEK GUID E GLUCOSE METER USE DIRECTED 1 Each 0 12/04/2022 Active Comment on above: USE DIRECTED acetaminophen 325 mg / HYDROcodone bitartrate 5 mg oral tablet (11 sources) Opioid Agonist Start: take 1 tablet by mouth every six hours as needed for pain Hydrocodone-Acetaminop hen 5-325 mg tablet Active 1 {tbl} PO EVERY 6 HOURS NEEDED as needed for Pain 10 3 0 January 20, 2023 Cervical radiculopathy Radiculopathy, cervical region Complies with drug therapy Start: 01-20-2023 take 1 tablet by philip th every six hours as needed Hydrocodone-Acetaminophen Active 1 TABLE T PO EVERY 6 HOURS NEEDED 10 3 January 20, 2023 Start: 09-19-2022 End: 01-26-2023 Hydrocodone-Acetaminophen 5- 325 mg tablet Discontinued 1 {tbl} PO EVERY 4 HOURS NEEDED as needed for Pain 10 4 0 September 19, 2022 January 26, 2023 3:26pm Strain of neck muscle Strain of muscle, fascia and tendon at neck level, initial encounter Start: 09-19-2022 End: 01-26-2023 take 1 tablet by mouth every four hours as needed Hydrocodone-Acetaminophen Discontinued 1 TABLET PO EVERY 4 HOURS NEEDED 10 4 September 19, 2022 January 26, 2023 3:26pm aspirin 81 mg delayed release oral tablet (20 sources) Platelet Aggregation Inhibitor, Nonsteroidal Anti-inflammatory Drug Start: 01-07-2012 take 1 tablet by mouth once daily Aspirin 81 MG tablet,delayed release (DR/EC) Active 81 mg PO DAILY February 05, 2016 12:00am [employer] [place] Complies with drug therapy Comment on above: Take 1 tablet by philip th once daily. atorvastatin 40 mg oral tablet (20 sources) HMG-CoA Reductase Inhibitor Start: 07-02-2019 End: 08-30-2024 take 1 tablet by mouth at bedtime Atorvastatin 40 MG tablet Active 40 mg PO AT BEDTIME 30 July 03, 2019 1:55pm cholesterol Complies with drug therapy Comment on above: Take 1 tablet by philip th once daily. Blood-Glucose Meter monitoring kit (20 sources) Start: 01-23-2024 Blood-Glucose Meter monitoring kit Test blood sugar(s) 2 times daily. Glucose Meter of Choice - Kit - Dx: Type 2 DM - Uncontrolled E11.65 1 Each 01/23/2024 Active Start: 01-23-2024 Blood-Glucose Meter monitoring kit Test blood sugar(s) 2 times daily. Glucose Meter of Choice - Kit - Dx: Type 2 DM - Uncontrolled E11.65 1 Each 0 01/23/2024 Active Start: 06-02-2022 Blood-Glucose Meter monitoring kit Glucose Meter of Choice - Kit - Dx: Type 2 DM - Uncontrolled E11.65 1 Each 06/02/2022 Active Start: 06-02-2022 Blood-Glucose Meter monitoring kit Glucose Meter of Choice - Kit - Dx: Type 2 DM - Uncontrolled E11.65 1 Each 0 06/02/2022 Active Start: 10-13-2017 End: 06-02-2022 Blood-Glucose Meter monitori ng kit Indications: Uncontrolled type 2 diabetes mellitus without complication, with long-term current use of insulin Glucose Meter of Choice - Kit - Dx: Type 2 DM - Uncontrolled E11.65 1 Each 10/13/2017 06/02/2022 Discontinued Start: 10-13-2017 End: 06-02-2022 Blood-Glucose Meter monitori ng kit Indications: Uncontrolled type 2 diabetes mellitus without complication, with long-term current use of insulin Glucose Meter of Choice - Kit - Dx: Type 2 DM - Uncontrolled E11.65 1 Each 0 10/13/2017 06/02/2022 Discontinued Start: 10-13-2017 Blood-Glucose Meter monitoring kit Indications: Uncontrolled type 2 diabetes mellitus without complication, with long-term current use of insulin Glucose Meter of Choice - Kit - Dx: Type 2 DM - Uncontrolled E11.65 1 Each 0 10/13/2017 Active Comment on above: Glucose Meter of Cho ice - Kit - Dx: Type 2 DM - Uncontrolled E11.65 calcium carbonate 1250 mg oral tablet (7 sources) Start: take 1 tablet by mouth once daily Calcium Carbonate (Calcium 500) 500 mg calcium (1,250 mg) tablet Active 500 mg PO DAILY August 07, 2019 1:00am Complies with drug therapy cephalexin 500 mg oral capsule (1 source) Cephalosporin Antibacterial Start: take 1 capsule by mouth every six hours cholecalciferol 0.05 mg oral capsule (7 sources) Vitamin D Start: take 1 capsule by mouth once daily Cholecalciferol (Vitamin D3) 50 mcg (2,000 unit) capsule Active 50 ug PO DAILY August 07, 2019 1:00am Complies with drug therapy doxycycline hyclate 100 mg oral capsule (5 sources) Tetracycline-class Drug Start: End: take 1 capsule by mouth twice daily doxycycline hyclate (VIBRAMYCIN) 100 mg capsule Indications: Sinus pressure Take 1 capsule by mouth two times a day for 10 days. 20 capsule 08/06/2024 08/16/2024 Active Start: 04-26-2024 End: 05-03-2024 take 1 tablet by mouth twice daily doxycycline monohydrate 100 mg tablet Indications: Lower resp. tract infection Take 1 tablet by mouth two times a day for 7 days. 14 tablet 04/26/2024 05/03/2024 Active fluconazole 150 mg oral tablet (1 source) Azole Antifungal Start: 03-20-2025 take 1 tablet by mouth once fluticasone propionate 0.05 mg/actuat metered dose nasal spray (20 sources) Corticosteroid Start: 09-15-2023 End: 08-06-2024 take 2 spray(s) by mouth once daily fluticasone (FLONASE) 50 mcg/actuation nasal spray Indications: Sinus pressure Use 2 Sprays in each nostril once daily. Rinse mouth after use. 1 Each 08/06/2024 Active Comment on above: Use 2 Sprays in each nostril once daily. Rinse mouth after use. gabapentin 300 mg oral capsule (20 sources) Anti-epileptic Agent Start: 03-20-2025 take 1 capsule by mouth once daily Gabapentin 300 mg capsule Active 300 mg PO DAILY March 20, 2025 12:00am Complies with drug therapy Start: 03-20-2025 take 4 capsules by m outh at bedtime Gabapentin 300 mg capsule Active 1200 mg PO AT BEDTIME March 20, 2025 12:00am Complies with drug therapy Start: 04-17-2024 End: 10-27-2024 take 1 capsule by mouth in the morning, then take 4 capsules by mouth at bedtime gabapentin (NEURONTIN) 300 mg capsule Take 300mg by mouth in the morning and afternoon. Take 1200mg at bedtime. 540 capsule 3 10/01/2024 Active Start: 01-23-2024 End: 07-09-2024 take 3 capsules by mouth once daily at bedtime gabapentin (NEURONTIN) 300 mg capsule Indications: DM (diabetes mellitus), type 2 with neurological complications (HCC) Take 3 capsules by mouth daily at bedtime for 90 days. 270 capsule 04/10/2024 04/17/2024 Discontinued Start: 06-22-2023 End: 01-21-2024 take 3 capsules by mouth once daily at bedtime gabapentin (NEURONTIN) 300 mg capsule Indications: DM (diabetes mellitus), type 2 with neurological complications (HCC) Take 3 capsules by mouth daily at bedtime for 90 days. 270 capsule 0 09/28/2023 01/21/2024 Discontinued Start: 01-26-2023 End: 03-20-2025 Gabapentin 300 mg tablet ext ended release 24 hr Discontinued 900 mg PO AT BEDTIME January 26, 2023 3:24pm March 20, 2025 6:42pm nerve pain Start: 01-26-2023 take 900 mg by mouth at bedtim e Gabapentin Active 900 MG PO AT BEDTIME January 26, 2023 3:24pm Start: 08-30-2022 End: 06-02-2023 take 3 capsules by mouth once daily at bedtime gabapentin (NEURONTIN) 300 mg capsule Indications: DM (diabetes mellitus), type 2 with neurological complications (HCC) Take 3 capsules by mouth daily at bedtime for 90 days. 270 capsule 0 03/04/2023 06/02/2023 Active Start: 05-19-2021 End: 07-02-2022 take 3 capsules by mouth once daily at bedtime gabapentin (NEURONTIN) 300 mg capsule Indications: DM (diabetes mellitus), type 2 with neurological complications (HCC) Take 3 capsules by mouth daily at bedtime for 30 days. 90 capsule 3 05/19/2021 03/23/2022 Discontinued Start: 02-05-2016 End: 01-26-2023 Gabapentin 300 MG tablet ext ended release 24 hr Discontinued 600 mg PO AT BEDTIME February 05, 2016 12:00am January 26, 2023 3:27pm nerve pain Start: 02-05-2016 End: 01-26-2023 take 600 mg by mouth at bedtime Gabapentin Discontinue d 600 MG PO AT BEDTIME February 05, 2016 12:00am January 26, 2023 3:27pm Comment on above: Take 3 capsules by m outh daily at bedtime for 30 days. Take 3 capsules by m outh daily at bedtime for 90 days. glimepiride 2 mg oral tablet (20 sources) Sulfonylurea Start: 016 End: 025 take 1 tablet by mouth once daily Glimepiride 2 MG tablet Active 2 mg PO DAILY February 05, 2016 12:00am diabetes Complies with drug therapy Comment on above: Take 1 tablet by philip th daily with breakfast. ICaps AREDS 2 oral capsule (1 source) Start: 025 take 1 capsule by mouth twice daily ICaps AREDS 2 oral capsule Dose = 1 cap(s), Oral, BID, # 60 cap(s), 0 Refill(s) Start Date: 12/24/24 Status: Ordered Quantity: 60.0 Unit: cap(s) Repeat number: 1 Inhalational Spacing Device (1 source) Start: End: Inhalational Spacing Device 1 Device one time only for 1 dose. 1 Each 0 03/23/2022 03/23/2022 Active Comment on above: 1 Device one time on ly for 1 dose. Novolin N (20 sources) Start: inject 1 dose by subcutaneous injection twice daily NovoLIN N Dose : 40 unit(s) =, Subcutaneous, BID, 0 Refill(s) Start Date: 12/24/24 Status: Ordered Repeat number: 1 Start: 01-26-2023 Insulin Nph Is oph U-100 Human (Humulin N Nph U-100 Insulin) 100 unit/mL suspension Active 35 U SC EVERY MORNING January 26, 2023 3:21pm Complies with drug therapy Start: 01-20-2023 End: 01-26-2023 Insulin Nph Isoph U-100 Jolene n (Humulin N Nph U-100 Insulin) 100 unit/mL suspension Active 45 U SC EVERY EVENING January 26, 2023 3:21pm Complies with drug therapy Start: 01-20-2023 End: 01-26-2023 Insulin Nph Isoph U-100 Jolene n (Humulin N Nph U-100 Insulin) 100 unit/mL suspension Discontinued 40 U SC DAILY January 20, 2023 12:00am January 26, 2023 3:27pm Start: 02-11-2021 insulin NPH in jection (HumuLIN N,NovoLIN N) 35 units in the Am 45 units in the PM 02/11/2021 Active Start: 07-02-2019 End: 08-07-2019 Insulin Nph Isoph U-100 Jolene n 100 UNIT/ML suspension Discontinued 32 U SQ DAILY@0800 July 02, 2019 1:00am August 07, 2019 2:23pm diabetes Start: 05-23-2018 End: 11-25-2021 inject 35 [IU] by subcutaneous injection twice daily at mealtime insulin NPH human (HUMULIN N NPH U-100 INSULIN) injection Inject 35 Units subcutaneously twice daily with meals. 30 mL 3 05/23/2018 11/25/2021 Discontinued Comment on above: Inject 35 Units subc utaneously twice daily with meals. 35 units in the Am 4 5 units in the PM insulin regular, human (NOVOLIN R REGULAR U-100 INSULN INJECTION) (20 sources) insulin regular, human (NOVOLIN R REGULAR U-100 INSULN INJECTION) by INJECTION(UNSPECIFIED PARENTERAL ROUTES) route. 34 units in the Am Active insulin regular, human (NOVOLIN R REGULAR U-100 INSULN INJECTION) by INJECTION(UNSPECIFIED PARENTERAL ROUTES) route. 34 units in the Am 0 Active Comment on above: by INJECTION(UNSPECIFIED PARENTERAL ROUT ES) route. 34 units in the Am Novolin R (20 sources) Insulin Start: 12-25-19 inject 1 dose by subcutaneous injection once daily NovoLIN R Dose : 35 unit(s) =, Subcutaneous, Daily, 0 Refill(s) Start Date: 12/24/24 Status: Ordered Repeat number: 1 Start: 01-26-2023 Insulin Regula r Human 100 unit/mL solution Active 37 U SC DAILY January 26, 2023 3:20pm diabetes Complies with drug therapy Start: 11-09-2017 End: 04-17-2024 insulin regular human (HUMUL IN R REGULAR U-100 INSULN) 100 unit/mL injection Indications: Uncontrolled type 2 diabetes mellitus without complication, with long-term current use of insulin Inject 24 Units subcutaneously daily with breakfast. 3 Vial 3 11/09/2017 04/17/2024 Discontinued Start: 07-23-2015 End: 01-26-2023 Insulin Regular Human 100 UN IT/ML solution Discontinued 35 U SC DAILY July 23, 2015 1:00am January 26, 2023 3:27pm diabetes Start: 07-23-2015 Insulin Regula r Human Active 26 UNIT SC DAILY@0800 July 23, 2015 1:00am Comment on above: Inject 24 Units subc utaneously daily with breakfast. Lactobacillus Combination No.9 (Adult 50 Plus Probiotic) 4 billion cell capsule (7 sources) Start: take 4 capsules by mouth once daily Lactobacillus Combination No.9 (Adult 50 Plus Probiotic) 4 billion cell capsule Active 4000 NMA PO DAILY July 16, 2021 1:00am administer with a meal Complies with drug therapy Start: 07-16-2021 take 4 capsules by m outh once daily Lactobacillus Combination No.9 (Adult 50 Plus Probiotic) 4 billion cell capsule Active 4000 MMU CELLS PO DAILY July 16, 2021 1:00am administer with a meal lisinopril 20 mg oral tablet (20 sources) Angiotensin Converting Enzyme Inhibitor Start: 12-24-2024 lisinopril 20 mg ora l tablet Dose : 30 mg = 1.5 tab(s), Oral, Daily, # 100 tab(s), 0 Refill(s) Start Date: 12/24/24 Status: Ordered Quantity: 100.0 Unit: tab(s) Repeat number: 1 Start: 01-26-2023 Lisinopril 20 mg tablet Active 30 mg PO DAILY January 26, 2023 12:00am Complies with drug therapy Start: 01-26-2023 take 30 mg by mouth once daily Lisinopril Active 30 MG PO DAILY January 26, 2023 12:00am Start: 10-22-2020 End: 08-30-2024 take 1.5 tablets by mouth once daily lisinopril (ZESTRIL) 20 mg tablet Indications: DM (diabetes mellitus), type 2 with neurological complications (HCC) Take 1.5 tablets by mouth once daily. 135 tablet 3 08/31/2024 Active Start: 02-05-2016 End: 01-26-2023 take 1 tablet by mouth once daily Lisinopril 30 MG tablet Discontinued 30 mg PO DAILY February 05, 2016 12:00am January 26, 2023 3:25pm blood pressure Comment on above: Take 1.5 tablets by mouth once daily. magnesium oxide 400 mg oral tablet (8 sources) Start: 03-20-2025 take 1 tablet by mouth once daily Magnesium Oxide 400 mg (241.3 mg magnesium) tablet Active 400 mg PO DAILY March 20, 2025 12:00am Complies with drug therapy Start: 12-31-2024 take 1 tablet by philip th once daily magnesium oxide (MAG-OX) 400 mg (241.3 mg magnesium) tablet Indications: Hypomagnesemia Take 1 tablet by mouth once daily. 30 tablet 1 12/31/2024 Active mecobalamin 1 mg chewable tablet (3 sources) Start: 01-27-2023 take 1 tablet by mouth once daily Mecobalamin (Vitamin B12) 1,000 mcg tablet,chewable Active 1000 ug PO DAILY January 27, 2023 12:00am Complies with drug therapy naproxen 250 mg oral tablet (1 source) Nonsteroidal Anti-inflammatory Drug Start: 07-15-2022 End: 07-22-2022 naproxen 250 mg oral tablet Dose : 250 mg = 1 tab(s), Oral, BID, X 7 day(s), # 14 tab(s), 0 Refill(s), 07/22/22 18:10:00 EST, Strain of neck muscle Strain of chest wall muscle Start Date: 07/15/22 Stop Date: 07/22/22 Status: Ordered nirmatrelvir tablet 150 mg and ritonavir tablet 100 mg in a dose pack (PAXLOVID) (1 source) Start: 12-04-2021 End: 12-09-2021 nirmatrelvir tablet 150 mg and ritonavir tablet 100 mg in a dose pack (PAXLOVID) Indications: Encounter by telehealth for suspected COVID-19 Administer TWO pink nirmatrelvir 150 mg tablets and ONE white ritonavir 100 mg tablet for a total of three tablets twice daily. 30 tablet 0 12/04/2021 12/09/2021 Active Comment on above: Administer TWO pink nirmatrelvir 150 mg tablets and ONE white ritonavir 100 mg tablet for a total of three tablets twice daily. nitrofurantoin, macrocrystals 25 mg / nitrofurantoin, monohydrate 75 mg oral capsule (4 sources) Nitrofuran Antibacterial Start: 05-31-2023 End: 06-07-2023 take 1 capsule by mouth twice daily at mealtime nitrofurantoin monohydrate and macrocrystal (MACROBID) 100 mg capsule Indications: Urinary tract infection without hematuria, site unspecified Take 1 capsule by mouth two times a day with meals for 7 days. 14 capsule 0 05/31/2023 06/07/2023 Active Start: 11-23-2021 End: 11-30-2021 take 1 capsule by mouth twice daily at mealtime nitrofurantoin monohydrate and macrocrystal (MACROBID) 100 mg capsule Indications: Urinary frequency , Dysuria Take 1 capsule by mouth twice daily with meals for 7 days. 14 capsule 0 11/23/2021 11/30/2021 Active Comment on above: Take 1 capsule by mo ut twice daily with meals for 7 days. Take 1 capsule by mo [facility] two times a day with meals for 7 days. omeprazole 40 mg delayed release oral capsule (20 sources) Proton Pump Inhibitor Start: 10-22-2020 End: 08-30-2024 take 1 capsule by mouth twice daily Omeprazole 40 mg capsule,delayed release(DR/EC) Active 40 mg PO TWICE A DAY January 26, 2023 3:19pm reflux Complies with drug therapy Start: 07-02-2019 End: 01-26-2023 take 1 capsule by mouth once daily Omeprazole 40 MG capsule,delayed release(DR/EC) Discontinued 40 mg PO DAILY July 02, 2019 1:00am January 26, 2023 3:27pm reflux Comment on above: Take 1 capsule by mo [facility] twice daily. Take 1 capsule by mo [facility] two times a day. ondansetron 4 mg disintegrating oral tablet (20 sources) Serotonin-3 Receptor Antagonist Start: 08-23-19 End: 04-17-20 take 1 tablet by mouth every eight hours as needed for nausea and vomiting Ondansetron 4 mg tablet,disintegrati ng Active 4 mg PO Q8H as needed for nausea and vomiting January 26, 2023 12:00am Complies with drug therapy Comment on above: Take 1 tablet by philip every 8 hours as needed for Nausea/Vomiting. predniSONE 20 mg oral tablet (2 sources) Start: 03-23-20 End: 03-28-20 take 1 tablet by mouth once daily predniSONE (DELTASONE) 20 mg tablet Take 1 tablet by mouth once daily for 5 days. 5 tablet 0 03/23/2022 03/28/2022 Active Comment on above: Take 1 tablet by philip once daily for 5 days. 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 90 tablet 3 08/08/2024 Active Comment on above: Take 1 tablet by philip once daily. traMADol hydrochloride 50 mg oral tablet (1 source) Opioid Agonist Start: 03-20-2025 take 50-100 mg by mouth every six hours as needed for pain traZODone hydrochloride 100 mg oral tablet (20 sources) Serotonin Reuptake Inhibitor Start: 12-24-2024 traZODone 100 mg oral tablet Dose : 200 mg = 2 tab(s), Oral, qHS, # 180 tab(s), 0 Refill(s) Start Date: 12/24/24 Status: Ordered Quantity: 180.0 Unit: tab(s) Repeat number: 1 Start: 01-26-2023 take 200 mg by mouth at bedtim e Trazodone Active 200 MG PO AT BEDTIME January 26, 2023 3:19pm Start: 07-14-2021 End: 08-08-2024 take 2 tablets by mouth at bedtime Trazodone 100 mg tablet Active 200 mg PO AT BEDTIME January 26, 2023 3:19pm sleep Complies with drug therapy Start: 07-02-2019 End: 01-26-2023 take 1 tablet by mouth at bedtime Trazodone 100 MG tablet Discontinued 100 mg PO AT BEDTIME July 02, 2019 1:00am January 26, 2023 3:27pm sleep Comment on above: Take 2 tablets by mo [facility] daily at bedtime. triamcinolone acetonide 1 mg/ml topical cream (20 sources) Corticosteroid Start: 07-31-19 triamcinolone acetonide (KENALOG) 0.1 % cream Apply 1 application to affected area three times a day. Apply sparingly to area for rash/itching. 80 g 07/31/2024 Active Vit C,U-Gd-Wzfoc-Lutein-Z eaxan (6 sources) Start: 07-02-19 20 take 1 capsule by mouth twice daily Vit C,W-Cu-Mxfbt-Lutein- Zeaxan Active 1 CAP PO TWICE A DAY July 02, 2019 1:00am Vit C,F-Zq-Bxwos-Lutein-Z eaxan 1 EACH capsule (1 source) Start: 07-02-19 20 take 1 capsule by mouth twice daily Vit C,F-Yd-Txhqg-Lutein- Zeaxan 1 EACH capsule Active 1 NMA PO TWICE A DAY July 02, 2019 1:00am vitamin Complies with drug therapy vitamin B12 (1 source) Vitamin B12 Start: 12-25-19 take 1 dose by mouth twice daily Vitamin B12 Dose : 1,000 mcg =, Oral, BID, 0 Refill(s) Start Date: 12/24/24 Status: Ordered Repeat number: 1 Vitamin D3 (1 source) Start: 12-25-19 Vitamin D3 5000 IU, Oral, BID, 0 Refill(s) Start Date: 12/24/24 Status: Ordered Repeat number: 1 Completed/Discontinued Medications Medication Drug Class(es) Dates Sig (Normalized) Sig (Original) [id number] 200 actuat albuterol 0.09 mg/actuat metered dose inhaler (20 sources) beta2-Adrenergic Agonist Start: 01-26-2023 End: 01-27-2023 Albuterol Sulfate 90 mcg/actuation HFA aerosol inhaler Discontinued 2 NMA INHALATION EVERY 6 HOURS as needed for shortness of breath or wheezing January 26, 2023 12:00am January 27, 2023 10:49am Start: 01-26-2023 End: 01-27-2023 take 1 puff(s) by inhalation every six hours Albuterol Sulfate Discontinued 2 PUFF INHALATION EVERY 6 HOURS January 26, 2023 12:00am January 27, 2023 10:49am Start: 03-23-2022 End: 04-17-2024 take 2 puff(s) by inhalation every six hours as needed for wheezing albuterol HFA (PROVENTIL HFA, VENTOLIN HFA) 90 mcg/actuation inhaler Indications: Acute cough Inhale 2 Puffs as instructed every 6 hours as needed for wheezing/shortness of breath. 1 Each 05/31/2023 04/17/2024 Discontinued Start: 09-30-2021 End: 12-04-2021 take 2 puff(s) by inhalation every four hours as needed albuterol HFA (PROAIR HFA) 90 mcg/actuation inhaler Inhale 2 Puffs as instructed every 4 hours as needed. 18 g 09/30/2021 12/04/2021 Discontinued Comment on above: Inhale 2 Puffs as in structed every 4 hours as needed. Inhale 2 Puffs as in structed every 6 hours as needed for wheezing/shortness of breath. benzonatate 100 mg oral capsule (5 sources) Non-narcotic Antitussive Start: 022 End: benzonatate (TESSALON PERLE) 100 mg capsule Take 1-2 capsules tid prn, no more than 6 in 24 hours. 30 capsule 0 09/30/2021 12/04/2021 Discontinued Comment on above: Take 1-2 capsules ti d prn, no more than 6 in 24 hours. cyclobenzaprine hydrochloride 10 mg oral tablet (4 sources) Muscle Relaxant Start: End: take 1 tablet by mouth three times daily as needed for muscle spasms Cyclobenzaprine 10 mg tablet Discontinued 10 mg PO THREE TIMES A DAY as needed for Muscle Spasm 10 0 January 20, 2023 12:00am January 27, 2023 10:49am 24 hr desvenlafaxine succinate 25 mg extended release oral tablet (8 sources) Serotonin and Norepinephrine Reuptake Inhibitor Start: End: take 1 tablet by mouth once daily Desvenlafaxine Succinate 25 mg tablet extended release 24 hr Discontinued 25 mg PO DAILY January 26, 2023 12:00am January 27, 2023 10:50am Start: 08-30-2022 End: 12-01-2022 take 1 tablet by mouth once daily at bedtime desvenlafaxine ER (PRISTIQ) 25 mg 24 hr tablet Take 1 tablet by mouth daily at bedtime. 90 tablet 1 08/30/2022 12/01/2022 Discontinued Comment on above: Take 1 tablet by philip th daily at bedtime. DULoxetine 60 mg delayed release oral capsule (20 sources) Serotonin and Norepinephrine Reuptake Inhibitor Start: 01-27-20 End: 03-20-20 take 1 capsule by mouth twice daily Duloxetine 60 mg capsule,delayed release(DR/EC) Discontinued 60 mg PO TWICE A DAY January 27, 2023 10:47am March 20, 2025 6:41pm anxiety Start: 12-01-2022 End: 01-13-2023 take 1 capsule by mouth once daily DULoxetine (CYMBALTA) 30 mg capsule Take 1 capsule by mouth once daily. 90 capsule 1 12/01/2022 01/13/2023 Discontinued Start: 09-07-2022 End: 12-01-2022 DULoxetine (CYMBALTA) 30 mg capsule Take 1 tablet every other day for 2 weeks then stop medication, for weaning process. 14 capsule 0 09/07/2022 12/01/2022 Discontinued Start: 08-31-2022 End: 09-07-2022 DULoxetine (CYMBALTA) 30 mg capsule Take 1 capsule by mouth once daily. X 2 weeks then decrease to every other day dosage for weaning process. 30 capsule 1 09/01/2022 09/07/2022 Discontinued Start: 04-17-2021 End: 08-25-2022 take 1 capsule by mouth twice daily DULoxetine (CYMBALTA) 60 mg capsule Indications: Depressive disorder , Anxiety Take 1 capsule by mouth twice daily. 180 capsule 04/17/2021 10/21/2021 Discontinued Start: 02-05-2016 End: 01-27-2023 take 1 capsule by mouth once daily Duloxetine 60 mg capsule,delayed release(DR/EC) Discontinued 60 mg PO DAILY January 26, 2023 3:29pm January 27, 2023 10:50am anxiety Comment on above: Take 1 capsule by mo uth twice daily. TAKE 1 CAPSULE BY MO UTH TWICE DAILY Take 1 capsule by mo uth once daily. Take 1 tablet every other day for 2 weeks then stop medication, for weaning process. Take 1 capsule by mo uth once daily. X 2 weeks then decrease to every other day dosage for weaning process. 12 hr guaiFENesin 600 mg extended release oral tablet (5 sources) Start: 2 End: 2 take 2 tablets by mouth twice daily guaiFENesin (MUCINEX) 600 mg 12 hr tablet Take 2 tablets by mouth twice daily. 24 tablet 0 09/30/2021 12/04/2021 Discontinued Comment on above: Take 2 tablets by mo uth twice daily. insulin NPH human isophane (NOVOLIN N SUBCUTANEOUS) (20 sources) End: 4 insulin NPH human isophane (NOVOLIN N SUBCUTANEOUS) Inject subcutaneously. 04/17/2024 Discontinued insulin NPH jolene n isophane (NOVOLIN N SUBCUTANEOUS) Inject subcutaneously. Active insulin NPH jolene n isophane (NOVOLIN N SUBCUTANEOUS) Inject subcutaneously. 0 Active Comment on above: Inject subcutaneousl y. Insulin Syringe-Needle U-100 (BD INSULIN SYRINGE UF) 1/2 mL 30 x 1/2" Syrg (14 sources) Start: 11-17-2011 End: 06-02-2022 Insulin Syringe-Needle U-100 (BD INSULIN SYRINGE UF) 1/2 mL 30 x 1/2" Syrg Indications: Type II or unspecified type diabetes mellitus with neurological manifestations, not stated as uncontrolled(250.60) inject with insulin Four times a day with each meal and at bedtime as directed 360 Syringe 3 11/17/2011 06/02/2022 Discontinued Start: 11-17-2011 Insulin Syring e-Needle U-100 (BD INSULIN SYRINGE UF) 1/2 mL 30 x 1/2" Syrg Indications: Type II or unspecified type diabetes mellitus with neurological manifestations, not stated as uncontrolled(250.60) inject with insulin Four times a day with each meal and at bedtime as directed 360 Syringe 3 11/17/2011 Active Comment on above: inject with insulin Four times a day with each meal and at bedtime as directed meclizine hydrochloride 25 mg oral tablet (13 sources) Antiemetic Start: 05-11-20 End: 07-27-19 take 1 tablet by mouth every six hours as needed for dizziness meclizine (ANTIVERT) 25 mg tab Indications: Benign paroxysmal positional vertigo, unspecified laterality Take 1 tablet by mouth every 6 hours as needed. FOR DIZZINESS 15 tablet 05/11/2021 07/27/2022 Comment on above: Take 1 tablet by philip th every 6 hours as needed. FOR DIZZINESS nitroglycerin 0.4 mg sublingual tablet (20 sources) Nitrate Vasodilator Start: 03-23-20 End: 04-17-20 24 Nitroglycerin 0.4 mg tablet, sublingual Discontinued 0.4 mg SL every 5 to 15 minutes as needed January 26, 2023 12:00am January 27, 2023 10:50am do not exceed 3 doses per episode Comment on above: Dissolve 1 tablet un kari the tongue as needed. for chest pain,every 5 min x3 Zinc (7 sources) Start: 11-19-19 End: 01-28-20 take 2 tablets by mouth once daily Zinc 50 mg tablet Discontinued 100 mg PO DAILY November 18, 2020 12:00am January 27, 2023 10:50am Start: 11-18-2020 End: 01-27-2023 take 100 mg by mouth once daily Zinc Discontinued 100 MG PO DAILY November 18, 2020 12:00am January 27, 2023 10:50am Start: 11-18-2020 take 100 mg by mouth once daily Zinc Active 100 MG PO DAILY November 18, 2020 12:00am Problems Active Problems Problem Classification Problem Date Documented Date Episodic/Chronic Anxiety disorders (20 sources) Anxiety; Translations: [Anxiety disorder, unspecified] Onset: 07-13-2013 07-13-2013 Chronic Blindness and vision defects (7 sources) Disorder of vision; Translations: [Unspecified visual loss] 07-16-2021 Chronic Cardiac dysrhythmias (4 sources) Palpitations; Translations: [Palpitations] 01-27-2023 Episodic Cataract (7 sources) Bilateral cataracts; Translations: [Unspecified cataract] 07-16-2021 Chronic Chronic ulcer of skin (1 source) Non-pressure chronic ulcer of other part of right foot limited to breakdown of skin; Translations: [Ulcer of toe of right foot, limited to breakdown of skin (HCC)] Onset: 03-26-2025 Chronic Conditions associated with dizziness or vertigo (7 sources) Vertigo; Translations: [Dizziness and giddiness] 09-19-2022 Episodic Coronary atherosclerosis and other heart disease (14 sources) Non-obstructive atherosclerosis of coronary artery; Translations: [Atherosclerotic heart disease of [place] coronary artery without angina pectoris] 10-06-2020 Chronic Comment on above: Mild nonobstructive disease diagnosed on coronary angiography in 2019. Diabetes mellitus with complications (20 sources) Type 2 diabetes mellitus; Translations: [Type 2 diabetes mellitus with hyperglycemia] Onset: 04-04-2012 06-15-2021 Chronic Diabetes mellitus without complication (2 sources) Type 2 diabetes mellitus without complications; Translations: [Diabetes mellitus without mention of complication, type II or unspecified type, not stated as uncontrolled] Onset: 11-05-2024 01-27-2023 Chronic Diabetes mellitus without complication (7 sources) High hemoglobin A1c level; Translations: [Other abnormal glucose] 07-20-2021 Episodic Comment on above: according to the pat ient her HgbA1c was >8 Disorders of lipid metabolism (20 sources) Mixed hyperlipidemia; Translations: [Mixed hyperlipidemia] Onset: 07-25-2006 07-25-2006 Chronic E Codes: Fall (7 sources) Fall; Translations: [Unspecified fall, initial encounter] 09-19-2022 Episodic Esophageal disorders (20 sources) Gastroesophageal reflux disease; Translations: [Gastro-esophageal reflux disease without esophagitis] Onset: 09-25-2014 09-25-2014 Chronic Essential hypertension (20 sources) Hypertensive disorder; Translations: [Essential (primary) hypertension] Onset: 09-25-2014 07-26-2019 Chronic Fever of unknown origin (7 sources) Fever 07-03-2019 Episodic Genitourinary symptoms and ill-defined conditions (1 source) Scalding pain on urination ; Translations: [Dysuria] 05-31-2023 Episodic Malaise and fatigue (20 sources) Fatigue; Translations: [Other fatigue] Onset: 09-01-2022 09-01-2022 Episodic Mood disorders (20 sources) Depressive disorder; Translations: [Depressive disorder] Onset: 03-11-2025 04-25-2015 Chronic Neoplasms of unspecified nature or uncertain behavior (20 sources) Neoplasm of skin of back; Translations: [Neoplasm of unspecified behavior of bone, soft tissue, and skin] Onset: 08-07-2011 Resolved: 01-04-2017 07-20-2021 Episodic Comment on above: 1 cm lesion right lo wer medial back1 cm lesion left middle lateral back 7 mm lesion right la teral breast7 mm lesion left lateral breast near the inframammary crease Nutritional deficiencies (20 sources) Vitamin D deficiency; Translations: [Vitamin D deficiency, unspecified] Onset: 05-05-2007 10-20-2015 Chronic Nutritional deficiencies (7 sources) Vitamin deficiency; Translations: [Vitamin deficiency, unspecified] 07-16-2021 Episodic Occlusion or stenosis of precerebral arteries (20 sources) Bilateral atherosclerosis of carotid arteries; Translations: [Occlusion and stenosis of bilateral carotid arteries] Onset: 09-01-2022 09-01-2022 Chronic Osteoarthritis (8 sources) Arthritis; Translations: [Unspecified osteoarthritis, unspecified site] 07-16-2021 Chronic Other aftercare (1 source) Post-discharge follow-up; Translations: [Encounter for follow-up examination after completed treatment for conditions other than malignant neoplasm] 12-31-2024 Episodic Other circulatory disease (3 sources) Disorder of carotid artery; Translations: [Disorder of arteries and arterioles, unspecified] 01-26-2023 Chronic Other circulatory disease (1 source) Pulmonary congestion ; Translations: [Other specified symptoms and signs involving the circulatory and respiratory systems] Episodic Other circulatory disease (2 sources) Abnormal peripheral pulse; Translations: [Other specified symptoms and signs involving the circulatory and respiratory systems] 10-01-2024 Episodic Other circulatory disease (2 sources) Other specified symptoms and signs involving the circulatory and respiratory systems; Translations: [Diminished pulses in lower extremity] Onset: 03-20-2025 Episodic Other connective tissue disease (2 sources) Pain in bilateral legs; Translations: [Pain in right leg] 01-13-2023 Episodic Other connective tissue disease (1 source) Pain of toe of right foot; Translations: [Pain in right toe(s)] 10-01-2024 Episodic Other connective tissue disease (1 source) Pain of toe of left foot; Translations: [Pain in left toe(s)] 10-01-2024 Episodic Other connective tissue disease (1 source) Muscle pain; Translations: [Myalgia, unspecified site] 11-05-2024 Episodic Other connective tissue disease (1 source) Musculoskeletal test abnormal; Translations: [Other symptoms and signs involving the musculoskeletal system] Onset: 12-24-2024 Episodic Other connective tissue disease (3 sources) Pain of right calf; Translations: [Pain in right lower leg] 12-31-2024 Episodic Other connective tissue disease (1 source) Pain in right foot; Translations: [Foot pain, right] Onset: 03-11-2025 Episodic Other endocrine disorders (7 sources) Decreased estradiol level; Translations: [Other specified endocrine disorders] 07-16-2021 Episodic Other hereditary and degenerative nervous system conditions (1 source) Restless legs; Translations: [Restless legs syndrome] 04-17-2024 Chronic Other inflammatory condition of skin (1 source) Erythematous condition, unspecified; Translations: [Erythema of foot] Onset: 03-11-2025 Episodic Other injuries and conditions due to external causes (7 sources) Injury of head; Translations: [Unspecified injury of head, initial encounter] 09-19-2022 Episodic Other lower respiratory disease (5 sources) Cough; Translations: [Cough] Episodic Other lower respiratory disease (20 sources) Dyspnea; Translations: [Shortness of breath] Onset: 09-21-2006 09-01-2022 Episodic Other lower respiratory disease (3 sources) Dyspnea on exertion; Translations: [Other forms of dyspnea] 01-27-2023 Episodic Other lower respiratory disease (1 source) Other forms of dyspnea; Translations: [Other respiratory abnormalities] 01-27-2023 Episodic Other lower respiratory disease (1 source) Lower respiratory tract infection; Translations: [Unspecified acute lower respiratory infection] 04-26-2024 Episodic Other lower respiratory disease (2 sources) Cough; Translations: [Acute cough] 08-06-2024 Episodic Other nervous system disorders (20 sources) Neuropathy; Translations: [Polyneuropathy, unspecified] Onset: 09-25-2014 09-25-2014 Chronic Other nervous system disorders (1 source) Difficulty walking; Translations: [Difficulty in walking, not elsewhere classified] 12-31-2024 Chronic Other nervous system disorders (1 source) Difficulty in walking, not elsewhere classified; Translations: [Difficulty in walking, not elsewhere classified] Onset: 12-31-2024 Chronic Other nervous system disorders (1 source) Polyneuropathy, unspecified; Translations: [Neuropathy] Onset: 09-25-2014 Chronic Other nervous system disorders (1 source) Abnormal gait; Translations: [Unspecified abnormalities of gait and mobility] 04-17-2024 Episodic Other nervous system disorders (3 sources) Numbness of lower limb ; Translations: [Anesthesia of skin] 02-02-2025 Episodic Other nervous system disorders (1 source) Abnormal reflex; Translations: [Abnormal reflex] 02-01-2025 Episodic Other nervous system disorders (1 source) Anesthesia of skin; Translations: [Right leg numbness] Onset: 02-01-2025 Episodic Other nervous system disorders (1 source) Abnormal reflex; Translations: [Abnormal reflex] Onset: 02-01-2025 Episodic Other nutritional; endocrine; and metabolic disorders (14 sources) Obesity; Translations: [Obesity, unspecified] Onset: 09-25-2014 09-25-2014 Chronic Other nutritional; endocrine; and metabolic disorders (20 sources) Obese class I; Translations: [Obesity, unspecified] Onset: 09-25-2014 09-01-2022 Chronic Other nutritional; endocrine; and metabolic disorders (2 sources) Hypomagnesemia; Translations: [Hypomagnesemia] Onset: 12-25-2024 Chronic Other nutritional; endocrine; and metabolic disorders (2 sources) Hypomagnesemia; Translations: [Hypomagnesemia] Onset: 12-24-2024 Chronic Other skin disorders (1 source) Eruption; Translations: [Rash and other nonspecific skin eruption] 07-31-2024 Episodic Other skin disorders (2 sources) Dystrophia unguium; Translations: [Nail dystrophy] 10-01-2024 Episodic Other skin disorders (1 source) Corns and callosities; Translations: [Callus of foot] Onset: 04-09-2025 Episodic Other skin disorders (1 source) Nail dystrophy; Translations: [Onychodystrophy] Onset: 03-26-2025 Episodic Other skin disorders (1 source) Localized swelling, mass and lump, right lower limb; Translations: [Localized swelling of right foot] Onset: 03-11-2025 Episodic Other upper respiratory disease (1 source) Other specified disorders of nose and nasal sinuses; Translations: [Other disease of nasal cavity and sinuses] 08-06-2024 Episodic Other upper respiratory infections (2 sources) Sore throat symptom; Translations: [Acute pharyngitis, unspecified] Episodic Peripheral and visceral atherosclerosis (20 sources) Peripheral vascular disease, unspecified; Translations: [Peripheral vascular disease, unspecified] Onset: 09-01-2022 09-01-2022 Chronic Pneumonia (except that caused by tuberculosis or sexually transmitted disease) (1 source) Community acquired pneumonia; Translations: [Pneumonia, unspecified organism] 08-23-2023 Episodic Residual codes; unclassified (20 sources) Finding related to sleep; Translations: [Sleep apnea, unspecified] Onset: 07-13-2013 07-13-2013 Chronic Residual codes; unclassified (4 sources) Insomnia co-occurrent and due to medical condition; Translations: [Insomnia due to medical condition] Chronic Residual codes; unclassified (20 sources) Tobacco user; Translations: [Tobacco use] Onset: 07-13-2013 07-13-2013 Episodic Residual codes; unclassified (2 sources) Amnesia; Translations: [Other amnesia] 01-13-2023 Episodic Residual codes; unclassified (1 source) Viral syndrome; Translations: [Other general symptoms and signs] 08-06-2024 Episodic Residual codes; unclassified (1 source) H/O Spinal surgery; Translations: [Other specified postprocedural states] 12-31-2024 Episodic Residual codes; unclassified (1 source) Memory impairment; Translations: [Other amnesia] 02-01-2025 Episodic Residual codes; unclassified (1 source) Pain, unspecified; Translations: [Severe pain] Onset: 03-20-2025 Episodic Residual codes; unclassified (1 source) Other amnesia; Translations: [Memory difficulty] Onset: 02-01-2025 Episodic Screening and history of mental health and substance abuse codes (14 sources) Tobacco use and exposure - finding; Translations: [Personal history of nicotine dependence] Onset: 01-24-2025 11-18-2020 Episodic Skin and subcutaneous tissue infections (5 sources) Cellulitis of right foot; Translations: [Cellulitis of right lower limb] Onset: 03-20-2025 03-20-2025 Episodic Spondylosis; intervertebral disc disorders; other back problems (20 sources) Degeneration of cervical intervertebral disc; Translations: [Other cervical disc degeneration, unspecified cervical region] Onset: 03-04-2023 03-04-2023 Chronic Spondylosis; intervertebral disc disorders; other back problems (20 sources) Chronic thoracic back pain; Translations: [Pain in thoracic spine] Onset: 08-22-2018 08-22-2018 Episodic Sprains and strains (2 sources) Injury of muscle and tendon at neck level; Translations: [Strain of muscle, fascia and tendon at neck level, initial encounter] Onset: 07-15-2022 Episodic Unclassified (1 source) Low back pain, unspecified back pain laterality, unspecified chronicity, unspecified whether sciatica present; Translations: [Low back pain, unspecified back pain laterality, unspecified chronicity, unspecified whether sciatica present] Onset: 04-04-2023 Unclassified (1 source) Right leg weakness 12-31-2024 Unclassified (1 source) Stable angina pectoris; Translations: [Stable angina pectoris] Onset: 04-09-2025 Unclassified (1 source) Obesity, Class I, BMI 30-34.9; Translations: [Obesity, Class I, BMI 30-34.9] Onset: 09-01-2022 Unclassified (1 source) Acute cough; Translations: [Acute cough] Onset: 08-06-2024 Past or Other Problems Problem Classification Problem Date Documented Date Episodic/Chronic Diseases of mouth; excluding dental (20 sources) Oral lesion; Translations: [Unspecified lesions of oral mucosa] Onset: 2 Resolved: 7 01-04-2017 Episodic Immunizations and screening for infectious disease (8 sources) Suspected disease caused by 2019-nCoV; Translations: [Suspected COVID-19 virus infection] Onset: 4 Episodic Nausea and vomiting (20 sources) Nausea; Translations: [Nausea] Onset: 9 08-22-2018 Episodic Nonmalignant breast conditions (5 sources) Lump of axillary tail of left breast; Translations: [Unspecified lump in axillary tail of the left breast] Onset: 4 06-04-2024 Episodic Nonspecific chest pain (11 sources) Chest pain on exertion; Translations: [Chest pain, unspecified] Onset: 1 10-08-2020 Episodic Open wounds of head; neck; and trunk (20 sources) Open wound of trunk; Translations: [Open wound of other and unspecified parts of trunk, without mention of complication] Onset: 4 Resolved: 7 01-04-2017 Episodic Other aftercare (20 sources) Drug therapy finding; Translations: [Other retirement (current) drug therapy] Onset: 4 04-24-2014 Episodic Other aftercare (1 source) Encounter for follow-up examination after completed treatment for conditions other than malignant neoplasm; Translations: [Hospital discharge follow-up] Onset: 5 Episodic Other aftercare (1 source) correction (current) use of insulin; Translations: [Type 2 diabetes mellitus without complication, with long-term current use of insulin (HCC)] Onset: 5 Episodic Other and unspecified benign neoplasm (20 sources) Dermal cellular nevus ; Translations: [Other benign neoplasm of skin, unspecified] Onset: 2 Resolved: 7 01-04-2017 Episodic Other and unspecified benign neoplasm (20 sources) Neurofibroma; Translations: [Benign neoplasm of peripheral nerves and autonomic nervous system, unspecified] Onset: 2 Resolved: 7 01-04-2017 Episodic Other and unspecified benign neoplasm (20 sources) Nevus lipomatosus cutaneous superficialis; Translations: [Benign lipomatous neoplasm of skin and subcutaneous tissue of unspecified sites] Onset: 2 Resolved: 7 01-04-2017 Episodic Other and unspecified benign neoplasm (20 sources) Benign neoplasm of oral cavity; Translations: [Benign neoplasm of unspecified part of mouth] Onset: 2 Resolved: 7 01-04-2017 Episodic Other bone disease and musculoskeletal deformities (20 sources) Disorder of skeletal system; Translations: [Disorder of bone, unspecified] Onset: 7 04-05-2007 Episodic Other bone disease and musculoskeletal deformities (20 sources) Senile osteopenia; Translations: [Other specified disorders of bone density and structure, unspecified site] Onset: 9 08-22-2018 Episodic Other circulatory disease (20 sources) Carotid bruit; Translations: [Other specified symptoms and signs involving the circulatory and respiratory systems] Onset: 4 07-13-2013 Episodic Other circulatory disease (20 sources) Feeling of lump in throat; Translations: [Other specified symptoms and signs involving the circulatory and respiratory systems] Onset: 7 02-09-2017 Episodic Other connective tissue disease (3 sources) Other symptoms and signs involving the musculoskeletal system; Translations: [Other musculoskeletal symptoms referable to limbs] Onset: 5 12-31-2024 Episodic Other connective tissue disease (2 sources) Pain in right lower leg; Translations: [Right calf pain] Onset: 5 Episodic Other connective tissue disease (1 source) Myalgia, unspecified site; Translations: [Myalgia] Onset: 5 Episodic Other inflammatory condition of skin (20 sources) Other specified erythematous conditions; Translations: [Other specified erythematous conditions] Onset: 7 Resolved: 7 01-04-2017 Episodic Other non-traumatic joint disorders (20 sources) Chronic pain of right upper limb; Translations: [Pain in right shoulder] Onset: 3 03-04-2023 Episodic Other non-traumatic joint disorders (20 sources) Pain of right acromioclavicular joint; Translations: [Pain in right shoulder] Onset: 3 03-04-2023 Episodic Other screening for suspected conditions (not mental disorders or infectious disease) (20 sources) Patient encounter status; Translations: [Encounter for screening mammogram for malignant neoplasm of breast] Onset: 5 Resolved: 5 Episodic Other skin disorders (20 sources) Seborrheic keratosis; Translations: [Other seborrheic keratosis] Onset: 1 Resolved: 7 01-04-2017 Episodic Other skin disorders (20 sources) Skin tag; Translations: [Other hypertrophic disorders of the skin] Onset: 2 Resolved: 7 01-04-2017 Episodic Residual codes; unclassified (20 sources) Insomnia; Translations: [Insomnia, unspecified] Onset: 7 07-25-2006 Episodic Residual codes; unclassified (20 sources) Postmenopausal state; Translations: [Asymptomatic menopausal state] Onset: 9 08-22-2018 Episodic Residual codes; unclassified (1 source) Other specified postprocedural states; Translations: [History of back surgery] Onset: 5 Episodic Unclassified (1 source) Patient encounter status 09-13-2024 Urinary tract infections (20 sources) Recurrent urinary tract infection; Translations: [Urinary tract infection, site not specified] Onset: 9 08-22-2018 Episodic Viral infection (20 sources) Viral disease; Translations: [Viral infection, unspecified] Onset: 2 Resolved: 7 Episodic Results Test Name Value Interpretation Reference Range Facility [facility] 04-09-2025 CNOV Office Visit (PODIWS ) CARLOS COVARRUBIAS ([id number]) 1955 F Date Time Provider Department 04/09/25 1:15 PM TESTRAKE, MEENAKSHI PODIWS During your visit today, we recorded the following information about you: Bettina Darnell LPN 04/09/2025 1:27 PM Signed AMB ROOMING INTAKE FLOWSHEET DATA Pain Pain Level: 9 Pain Location: Foot-Right Description: Stabbing Duration Amount of Time: 2 Duration Units: Weeks Frequency: Intermittent Intervention/Comfort measure: Reposition, Relaxation Patient presents with: Right Foot - Pain, Swelling, Established Patient NAWAF Agrawal Matthew 04/09/2025 1:27 PM Signed Subjective The patient is a 69-year-old female with DM, neuropathy, and PAD presenting for follow-up of a right foot wound. The patient developed a wound on her right foot a few weeks ago that progressed to cellulitis. She initially saw her PCP for redness and swelling, but was told there was no infection. The condition worsened, with a red streak developing up her foot and severe pain prompting an ER visit. She received IV antibiotics in the ER and was discharged with oral antibiotics. Wound culture grew Staph aureus, and she was prescribed Keflex, which she is still completing. She reports significant improvement in pain. She reports chronic leg pain, particularly in the right leg, and describes a pulling sensation in the back of her leg when climbing stairs that feels as though it could "break open." She denies leg pain when sleeping or walking on level ground. She has not previously seen a vascular specialist. She has neuropathy with decreased sensation in her right forefoot and both feet. She wears old, flimsy shoes that do not rub or cause pain, and she denies current interest in toenail removal. She is a former smoker. Cardiovascular: (+) exertional leg pain with stair climbing, (-) nocturnal leg pain Musculoskeletal: (+) burning pain right foot Objective There were no vitals taken for this visit. - Cardiovascular: Dorsalis pedis and posterior tibial pulses non-palpable bilaterally. Capillary refill time >5 seconds. Skin temperature warm to cool from proximal to distal. No hair growth present bilaterally. - Skin: Erythema of right foot resolved. Evidence of prior blister formation on the lateral aspect of the right fifth metatarsal, appears healed. No drainage, erythema, or signs of infection. No open wounds noted bilaterally. Pressure points noted along the left fifth metatarsal head and left fifth metatarsal styloid process. - Neurological: Protective sensation absent in the right forefoot. Vibratory sensation absent in both feet. Labs: - (03/29) Wound Culture: Staphylococcus aureus isolated Tests AND Prior Procedures: - (04/05) - Ankle-Brachial Index: - Right dorsalis pedis: 0.54 - Right posterior tibial: 0.71 (partially noncompressible) - Left dorsalis pedis: 0.68 - Left posterior tibial: 0.76 - Toe-Brachial Index: - Right: 0.0 - Left: 0.51 Assessment AND Plan # Ulcer of toe of right foot, limited to breakdown of skin (HCC) (L97.511) # Cellulitis and abscess of toe of right foot (L03.031) Right fifth metatarsal ulcer and associated cellulitis are now resolved following antibiotic therapy (Keflex) for Staphylococcus aureus infection. - Continue remaining course of Keflex as previously prescribed until complete - Educated patient on importance of prompt medical attention for any new wounds, delayed healing, or signs of infection, and to present to the ER if wounds fail to heal, worsen, or new wounds develop. - Follow-up in 3 months. # Diabetic polyneuropathy associated with type 2 diabetes mellitus (HCC) (E11.42) # Callus of foot (L84) Diabetic neuropathy with absent vibratory sensation in both feet and absent sensation in the right forefoot; history of callus formation. - Educated patient on the importance of avoiding barefoot walking and wearing properly fitting, wide, mesh shoes to prevent pressure ulcers and callus formation. - Advised against toenail removal due to risk of poor healing. - Order diabetic shoes due to neuropathy, vascular disease, history of callus, and prior ulceration. - Plan to trim toenails at each follow-up visit. # PAD (peripheral artery disease) (I73.9) Significant bilateral lower extremity PAD with worse disease on the right, as evidenced by circulation studies on 04/05 showing right dorsalis pedis GODFREY 0.54, posterior tibial GODFREY 0.71 (partially non-compressible), left dorsalis pedis GODFREY 0.68, posterior tibial GODFREY 0.76, right toe pressure 0.0, and left toe pressure 0.51. - Educated patient on the risks of slow or non-healing wounds and potential limb loss due to PAD. - Refer to vascular surgery (Dr. Leta Paredes) for further evaluation and management. - Advised patient to report any new wounds or signs o (more content not included)... Normal [facility] PVR LEG WALT VAS LABon 2024 PVR LEG [facility]ALT [facility]AS LAB Non-Invasive Vascula r Laboratory [facility] Lower Extremity Arterial Physiology Study Bilateral/Complete Date of service/time: 04/05/2025 10:56:54 AM Name: MRS. CARLOS COVARRUBIAS Date of : 1955 Age: 69 years Gender: F Clinical Indication Decreased pulses. TECHNIQUE -------- An arterial physiological examination was performed, including measurement of blood pressures using continuous wave Doppler and recording of plethysmographic with or without Doppler waveforms at the below-mentioned limb segments. FINDINGS -------- RIGHT SIDE AT REST Right Doppler Waveforms Dorsalis pedis: Monophasic. Post tibial: Monophasic. Right Pressures Brachial: 121 mmHg High thigh: 255 mmHg Non-compressible arteries. Low thigh: 73 mmHg Calf: 255 mmHg Non-compressible arteries. Ankle dorsalis pedis: 65 mmHg GODFREY: 0.54 Ankle posterior tibial: 86 mmHg GODFREY: 0.71 Partially non-compressible arteries. Digit: 0 mmHg Right PVR Waveforms High thigh: Mildly dampened. Low thigh: Mildly dampened. Calf: Mildly dampened. Ankle: Moderately dampened. Transmetatarsal: Moderately dampened. Digit: Severely dampened. LEFT SIDE AT REST Left Doppler Waveforms Dorsalis pedis: Monophasic. Post tibial: Monophasic. Left Pressures Brachial: 121 mmHg High thigh: 148 mmHg Low thigh: 162 mmHg Calf: 120 mmHg Ankle dorsalis pedis: 82 mmHg GODFREY: 0.68 Ankle posterior tibial: 92 mmHg GODFREY: 0.76 Digit: 62 mmHg Left PVR Waveforms High thigh: Mildly dampened. Low thigh: Mildly dampened. Calf: Mildly dampened. Ankle: Mildly dampened. Transmetatarsal: Moderately dampened. Digit: Mildly dampened. IMPRESSION RIGHT SIDE Resting right ankle brachial index: 0.71 Partially non-compressible arteries, GODFREY not accurate. Right toe brachial index: 0.00 Abnormal ankle brachial index at rest diagnostic of peripheral artery disease. Abnormal toe brachial index at rest is evidence of peripheral artery disease. Right ankle: Moderate disease at rest. Right superficial femoral disease. Right infrapopliteal disease. Right small vessel disease. LEFT SIDE Resting left ankle brachial index: 0.76 Left toe brachial index: 0.51 Abnormal ankle brachial index at rest diagnostic of peripheral artery disease. Abnormal toe brachial index at rest is evidence of peripheral artery disease. Left ankle: Mild disease at rest. Left infrapopliteal disease. Technologist: Flor Valles RVT Ordering physician: MEENAKSHI HAMM Interpreting physician: Issa Dumont MD, ROYAL Final CC [facility] Image : [id number] [id number] See Link below for Image Normal [facility] Bacteria Wnd Culton 03-26-20 Bacteria identified Cx Nom (Wound) ORGANISM ID: 1 Rare Staphylococcus aureus ORGANISM ID: 2 Rare skin axel GRAM STAIN: No organisms seen No Polymorphonuclear Leukocytes ORGANISM ID: 1 (STAPHYLOCOCCUS AUREUS) -- ANTIBIOTIC INTERPRETATION HI STATUS REFERENCE RANGE -- Oxacillin S <=0.25 F Susceptible <=2 , Resistant >2 Oxacillin-susceptible staphylococci are susceptible to other penicilllinase-stable penicillins, beta-lactam/beta-lacta angelique inhibitor combinations, anti-staphylococcal cephems, and carbapenems. Erythromycin S <=0.25 F Susceptible <=0.5 , Intermediate >.5 , Resistant >4 Clindamycin S 0.25 F Susceptible <=0.5 , Intermediate >.5 , Resistant >2 Trimeth sulfameth S <=10 F Susceptible <=40 , Resistant >40 Vancomycin S <=0.5 F Susceptible <=2 , Intermediate >2 , Resistant >8 Rifampin S <=0.5 F Susceptible <=1 , Intermediate >1 , Resistant >2 Rifampin should not be used alone for antimicrobial therapy. Tetracycline S <=1 F Susceptible <=4 , Intermediate >4 , Resistant >8 Doxycycline S <=0.5 F Susceptible <=4 , Intermediate >4 , Resistant >8 Abnormal [facility] Comment on above: Performed By: #### 6 [id number] ####[facility] LABCLIA [id number] [address] OF [facility] CNOVon 03-26-2025 CNOV Office Visit (PODIWS ) CARLOS COVARRUBIAS ([id number]) 1955 F Date Time Provider Department 03/26/25 2:45 PM MEENKASHI HAMM PODIWS During your visit today, we recorded the following information about you: Talya Marcos MA 03/26/2025 7:15 PM Signed AMB ROOMING INTAKE FLOWSHEET DATA Pain Pain Level: 4 Pain Location: Foot-Right Description: Numbness, Dull, Aching Duration Amount of Time: 2 Duration Units: Months Frequency: Continuous Intervention/Comfort measure: Medication Comments: Cephalexin has finally helped since starting 03/20 per ER Meenakshi Hamm 03/26/2025 3:15 PM Signed We discussed your right foot pain, swelling, and infection: - You have cellulitis and two superficial wounds on your right foot. One wound is on the top of your right fifth toe (2 mm x 2 mm), and the other is on the lateral aspect of your right fifth metatarsal (4 mm x 4 mm). There is no deep tissue involvement, exposed tendon, or bone. - I cleaned and pared down the wounds today under sterile technique after numbing the area. A wound swab was taken to identify any infection. - Continue taking Keflex (antibiotic) as prescribed. If taking it every 6 hours causes significant stomach upset, you may take it every 8 hours instead. It is important to complete the course of antibiotics. - Clean the wounds daily with soap and water, dry thoroughly, and apply Silvagel (wound gel) if approved by your insurance. Cover the wounds with a Band-Aid or gauze. If Silvagel is not approved, we will discuss alternative options such as Silvadene cream. - Avoid putting pressure on the foot. A surgical shoe will be provided to help offload pressure and promote healing. - If your condition worsens, including increased redness, swelling, pain, or discharge, go to the emergency room immediately. We discussed your circulation and diabetic foot care: - You have diminished pulses in your feet, which may affect healing. A circulation study (PVR) is ordered to assess blood flow to your feet. Please schedule and complete this test as soon as possible. - Once the circulation study is completed, we will discuss the possibility of removing your toenail if needed. Follow-up: - Please schedule a follow-up appointment with me in 2 weeks to reassess your foot and review the circulation study results. - If your symptoms worsen before your next visit, go to the emergency room. Care instructions: - Clean the wounds daily with soap and water, apply Silvagel (or an alternative if needed), and keep the wounds covered. - Wear the surgical shoe to reduce pressure on your foot. - Monitor your foot for any signs of worsening infection, such as increased redness, swelling, or pain, and seek immediate care if these occur. Your next steps: - Complete the circulation study (PVR) as soon as possible. - Continue taking Keflex as directed. - Use Silvagel daily if approved by insurance. - Follow up with me in 2 weeks. Talya Marcos MA 03/26/2025 7:[address] Hamm instruction polysporin ointment, non stick pad, gauze wrap, and kj wrap applied. Per Dr. Hamm, Carlos was provided with Post op shoe, size Large, and instructed/educated in its application, wear, and care. All questions were answered, and patient was able to demonstrate competence with the necessary skills to utilize the above equipment. SUZANNE Romero Matthew 03/26/2025 7:15 PM Signed Subjective The patient is a 69-year-old female with DM presenting for evaluation of right foot pain and swelling. The patient reports pain and swelling in her right foot for the past 1.5 months, with increased severity over the past 3 weeks. She describes the pain as severe and reports that the foot was bright red with a streak of erythema extending up the foot. She denies any open wounds, trauma, or wearing tight shoes. She has been unable to walk at times due to the pain. She was initially evaluated by Dr. Driver, who ordered blood work and x-rays on 03/11. She was referred to podiatry but could not get an appointment until the end of the next month. On 03/20, she was seen by Luz Arita at the [facility], who sent her to the ER for further evaluation. In the ER, she received IV vancomycin and morphine, and was discharged home with Keflex and Diflucan. She was diagnosed with cellulitis. She reports that the foot is improving, but she continues to have significant pain, particularly to touch. She has been taking Keflex twice daily instead of every 6 hours as prescribed due to nausea. She denies tobacco and alcohol use. Musculoskeletal: (+) right foot pain, (+) right foot swelling, (+) difficulty walking Skin: (+) right foot erythema, (+) right foot blister Neurological: (+) right foot numbness Gastrointestinal: (+) nausea Objective There were no vitals t (more content not included)... Normal [facility] CARLOS COVARRUBIAS ([id number]) 1955 F Date Time Provider Department 03/22/25 EL DRIVER During your visit today, we recorded the following information about you: Cathleen Hemphill RN 03/22/2025 3:20 PM Signed Patient went to [facility] ER on 03/20/25 due to severe pain, pale nailbeds, erythema with lymphatic streaking from lateral callous to top of mid-foot. Pt states she was was given IV antibiotics and discharged with script for Keflex 500 mg every 6 hours which she has been taking for [address] Driver to state all day today she has been having stomach cramping, has had 4 episodes of diarrhea and a "little hard to breathe". She states 'I just don't feel right". She attributes her sx's to the antibiotic; believes she is too sensitive to it, or it is too strong. Pt states she is not going to take anymore Keflex at this time and asking Dr. Driver for advise as she goes into the weekend. Patient alert and speaking calmly and clearly on phone. No distress, no gasping or other sounds noted during call. Pt reports her right foot feels better but looks about the same. Denies worsening sx's. Please call patient back with reply. [phone] El Driver DO 03/23/2025 8:09 AM Signed I can't change this antibiotic without foot being assessed. Please have her be seen in EMERGENCY DEPARTMENT for evaluation since not tolerating the antibiotic DO Drea Farah Jazzmin, MA 03/23/2025 8:32 AM Signed Pt informed. Pt reports she will not go to the ER. She said its ridiculous and too much money. Pt reports she will try to go to Urgent care today. SUZANNE Cohen Jordan L, DO 03/26/2025 4:29 PM Signed Noted El Driver DO Allergies As of Date: 03/22/2025 Noted Allergy Reaction AUGMENTIN (AMOXICILLIN-POT CLAVUL*04/25/2018 8 - GI Upset Comments: Nausea, vomiting BIAXIN (CLARITHROMYCIN) 03/27/2007 8 - GI Upset Comments: Metallic taste; can tolerate Zpak BYETTA (EXENATIDE) 07/25/2006 5 - Intolerance Comments: GI upset GLUCOPHAGE (METFORMIN) 07/25/2006 5 - Intolerance Comments: GI upset IODINE 01/16/2004 7 - Swelling Comments: myleogram dye LATEX 09/25/2014 16 - Unknown OMNICEF (CEFDINIR) 04/25/2018 8 - GI Upset Comments: Nausea, vomiting Date Reviewed: 03/20/2025 Reviewed by: Luz Arita APRN.[employer] - Fully Assessed Reason for Visit: Patient Update [1234] Prescriptions as of 03/27/2025 - silver 200 mcg/gram gel Apply to affected area once daily. - HYDROcodone-acetaminop hen (NORCO) 5-325 mg per tablet Take 1 tablet by mouth every 8 hours as needed for pain for up to 7 days. - gabapentin (NEURONTIN) 300 mg capsule Take 1 tablet by mouth in the morning and afternoon. Take 4 tablets at bedtime. - lisinopril (ZESTRIL) 20 mg tablet Take 1.5 tablets by mouth once daily. - omeprazole (PRILOSEC) 40 mg capsule Take 1 capsule by mouth two times a day. - atorvastatin (LIPITOR) 40 mg tablet Take 1 tablet by mouth once daily. - glimepiride (AMARYL) 2 mg tablet Take 1 tablet by mouth daily with breakfast. - magnesium oxide (MAG-OX) 400 mg (241.3 mg magnesium) tablet Take 1 tablet by mouth once daily. - blood sugar diagnostic (BLOOD GLUCOSE TEST) test strip Test blood sugar(s) 2 times daily. Dx: Type 2 DM - Uncontrolled E11.65 Insulin: Yes - gabapentin (NEURONTIN) 300 mg capsule Take 300mg by mouth in the morning and afternoon. Take 1200mg at bedtime. - traZODone (DESYREL) 100 mg tablet Take 2 tablets by mouth daily at bedtime. - sertraline (ZOLOFT) 50 mg tablet Take 1 tablet by mouth once daily. - fluticasone (FLONASE) 50 mcg/actuation nasal spray Use 2 Sprays in each nostril once daily. Rinse mouth after use. - triamcinolone acetonide (KENALOG) 0.1 % cream Apply 1 application to affected area three times a day. Apply sparingly to area for rash/itching. - ondansetron orally disintegrating (ZOFRAN ODT) 4 mg disintegrating tablet Take 1 tablet by mouth every 8 hours as needed for nausea/vomiting. - Blood-Glucose Meter monitoring kit Test blood sugar(s) 2 times daily. Glucose Meter of Choice - Kit - Dx: Type 2 DM - Uncontrolled E11.65 - Insulin Syringe-Needle U-100 (BD INSULIN SYRINGE UF) 0.5 mL 30 gauge x 1/2" inject with insulin Four times a day with each meal and at bedtime as directed - ACCU-CHEK GUIDE GLUCOSE METER USE DIRECTED - Blood-Glucose Meter monitoring kit Glucose Meter of Choice - Kit - Dx: Type 2 DM - Uncontrolled E11.65 - insulin regular, human (NOVOLIN R REGULAR U-100 INSULN INJECTION) by INJECTION(UNSPECIFIED PARENTERAL ROUTES) route. 34 units in the Am - insulin NPH injection (HumuLIN N,NovoLIN N) 35 units in the Am 45 units in the PM - Lancets lancets Test blood sugar(s) BID times daily. Dx: Type 2 DM - Uncontrolled E11.65 Insulin: Yes - aspirin, enteric co (more content not included)... Normal [facility] Absolute lymphocyte countOrd ered By: Chris Medina on 03-20-2025 Lymphocytes Auto (Unsp spec) [#/Vol] 2.52 10*3/uL 0.83-4.51 [facility] Absolute neutrophil countOrd ered By: Chris Medina on 03-20-2025 Neutrophils (Bld) [#/Vol] 5.4 10*3/uL 2.0-7.7 [facility] Anion gap in Serum or Plasma Ordered By: Chris Medina on 03-20-2025 Anion gap [Moles/Vol] 12 mmol/L 5-15 [facility] Automated lymphocyte count a s percentage of total leukocytesOrdered By: Chris Medina on 03-20-2025 Lymphocytes/100 WBC Auto (Unsp spec) 28.9 % - [facility] BUN/creatinine ratioOrdered By: Chris Medina on 03-20-2025 Urea nitrogen/Creatinine [Mass ratio] 23.1 mg/mg High 10- [facility] Basic Metabolic Profile (BMP )on 03-20-2025 BUN/CRE 23.1 RATIO High 10-20 [facility] Comment on above: Performed By: #### L [id number], L101.9900, L503.6005, L500.2500, L100.0100 #### [facility] [address] [place], [address] Calcium [Mass/Vol] 9.3 mg/dL Normal 7.6-11.0 [facility] Comment on above: Performed By: #### L [id number], L101.9900, L503.6005, L500.2500, L100.0100 #### [facility] [address] [place], [address] Chloride [Moles/Vol] 102 mmol/L Normal 98-108 [facility] Comment on above: Performed By: #### L [id number], L101.9900, L503.6005, L500.2500, L100.0100 #### [facility] [address] [place], [address] CO2 [Moles/Vol] 25.4 mmol/L Normal 21.0-32.0 [facility] Comment on above: Performed By: #### L [id number], L101.9900, L503.6005, L500.2500, L100.0100 #### [facility] [address] [place], [address] Creatinine [Mass/Vol] 0.92 mg/dL Normal 0.70-1.20 [facility] Comment on above: Performed By: #### L [id number], L101.9900, L503.6005, L500.2500, L100.0100 #### [facility] [address] [place], [address] ECRCL 68.00 ml/min Normal 50-250 [facility] Comment on above: Performed By: #### L [id number], L101.9900, L503.6005, L500.2500, L100.0100 #### [facility] [address] [place], [address] GAP 12 Normal 5-15 [facility] Comment on above: Performed By: #### L [id number], L101.9900, L503.6005, L500.2500, L100.0100 #### [facility] [address] [place], [address] GFR/1.73 sq M.predicted among non-blacks MDRD (S/P/Bld) [Vol rate/Area] 67 mL/min/{1.73_m2} Normal >60 [facility] Comment on above: Result Comment: mL/m in/1.73m2 CKD-EPI Creatinine Equation (2020) Performed By: #### L 501.6710, L101.9900, L503.6005, L500.2500, L100.0100 #### [facility] [address] [place], [address] Glucose [Mass/Vol] 189 mg/dL High 70-99 [facility] Comment on above: Performed By: #### L 501.6710, L101.9900, L503.6005, L500.2500, L100.0100 #### [facility] [address] [place], [address] Potassium [Moles/Vol] 4.1 mmol/L Normal 3.3-5.1 [facility] Comment on above: Performed By: #### L 501.6710, L101.9900, L503.6005, L500.2500, L100.0100 #### [facility] [address] [place], [address] Sodium [Moles/Vol] 139 mmol/L Normal 133-145 [facility] Comment on above: Performed By: #### L 501.6710, L101.9900, L503.6005, L500.2500, L100.0100 #### [facility] [address] [place], [address] Urea nitrogen [Mass/Vol] 21 mg/dL High 4-19 [facility] Comment on above: Performed By: #### L 501.6710, L101.9900, L503.6005, L500.2500, L100.0100 #### [facility] [address] [place], [address] Basophil percentageOrdered B y: Chris Medina on 03-20-2025 Basophils/100 WBC (Bld) 0.5 % 0-1 [facility] Bedside Glucoseon 03-20-2025 FINGERSTICK GLU 85 mg/dL Normal 74-106 [facility] Comment on above: Result Comment: RUBY GEMENT OF PATIENT CARE PER NURSING PROTOCOL Performed By: #### L 501.080 #### [facility] [address] [place], [address] FINGERSTICK GLU 66 mg/dL Low 74-106 [facility] Comment on above: Result Comment: RUBY GEMENT OF PATIENT CARE PER NURSING PROTOCOL Performed By: #### L 501.080 #### [facility] [address] [place], [address] FINGERSTICK GLU 34 mg/dL Invalid Interpretation Code 74-106 [facility] Comment on above: Result Comment: Sna k Given MANAGEMENT OF PATIENT CARE PER NURSING PROTOCOL Performed By: #### L 501.080 #### [facility] [address] [place], [address] CBC W/Diff, Automatedon 10-0 Absolute Lymph 2.52 X10 3/uL Normal 0.83-4.51 [facility] Comment on above: Performed By: #### L 501.6710, L101.9900, L503.6005, L500.2500, L100.0100 #### [facility] [address] [place], [address] Absolute Neut 5.4 X10 3/uL Normal 2.0-7.7 [facility] Comment on above: Performed By: #### L 501.6710, L101.9900, L503.6005, L500.2500, L100.0100 #### [facility] [address] [place], [address] Basophils/100 WBC (Bld) 0.5 % Normal 0-1 [facility] Comment on above: Performed By: #### L 501.6710, L101.9900, L503.6005, L500.2500, L100.0100 #### [facility] [address] [place], [address] Eosinophils/100 WBC (Bld) 0.3 % Normal 0-5 [facility] Comment on above: Performed By: #### L 501.6710, L101.9900, L503.6005, L500.2500, L100.0100 #### [facility] [address] [place], [address] Erythrocyte distribution width (RBC) [Ratio] 12.3 % Normal 11.6-14.6 [facility] Comment on above: Performed By: #### L 501.6710, L101.9900, L503.6005, L500.2500, L100.0100 #### [facility] [address] [place], [address] Hematocrit (Bld) [Volume fraction] 37.4 % Normal 37-47 [facility] Comment on above: Performed By: #### L 501.6710, L101.9900, L503.6005, L500.2500, L100.0100 #### [facility] [address] [place], [address] Hemoglobin (Bld) [Mass/Vol] 12.8 g/dL Normal 12.0-15.0 [facility] Comment on above: Performed By: #### L 501.6710, L101.9900, L503.6005, L500.2500, L100.0100 #### [facility] [address] [place], [address] IG% 0.300 Normal 0.0-0.9 [facility] Comment on above: Result Comment: IG% - Immature Granulocytes (promyelocytes, myelocytes and metamyelocytes) > 1% indicates that a LEFT SHIFT is Present. Performed By: #### L 501.6710, L101.9900, L503.6005, L500.2500, L100.0100 #### [facility] [address] [place], [address] Lymphocytes/100 WBC (Bld) 28.9 % Normal 19-41 [facility] Comment on above: Performed By: #### L 501.6710, L101.9900, L503.6005, L500.2500, L100.0100 #### [facility] [address] [place], [address] MCH (RBC) [Entitic mass] 30.5 pg Normal 27.0-32.0 [facility] Comment on above: Performed By: #### L 501.6710, L101.9900, L503.6005, L500.2500, L100.0100 #### [facility] [address] [place], [address] MCHC (RBC) [Mass/Vol] 34.2 g/dL Normal 32-36 [facility] Comment on above: Performed By: #### L 501.6710, L101.9900, L503.6005, L500.2500, L100.0100 #### [facility] [address] [place], [address] MCV (RBC) [Entitic vol] 89.3 fL Normal 81-99 [facility] Comment on above: Performed By: #### L 501.6710, L101.9900, L503.6005, L500.2500, L100.0100 #### [facility] [address] [place], [address] Monocytes/100 WBC (Bld) 7.6 % Normal 0-10 [facility] Comment on above: Performed By: #### L 501.6710, L101.9900, L503.6005, L500.2500, L100.0100 #### [facility] [address] [place], [address] Neutrophils/100 WBC (Bld) 62.4 % Normal 47-70 [facility] Comment on above: Performed By: #### L 501.6710, L101.9900, L503.6005, L500.2500, L100.0100 #### [facility] [address] [place], [address] Nucleated RBC (Bld) [#/Vol] 0 10*3/uL Normal 0-5 [facility] Comment on above: Performed By: #### L 501.6710, L101.9900, L503.6005, L500.2500, L100.0100 #### [facility] [address] [place], [address] Platelet mean volume (Bld) [Entitic vol] 9.8 fL Normal 6.2-12.0 [facility] Comment on above: Performed By: #### L 501.6710, L101.9900, L503.6005, L500.2500, L100.0100 #### [facility] [address] [place], [address] Platelets (Bld) [#/Vol] 234 10*3/uL Normal 150-450 [facility] Comment on above: Performed By: #### L 501.6710, L101.9900, L503.6005, L500.2500, L100.0100 #### [facility] [address] [place], [address] RBC (Bld) [#/Vol] 4.19 10*6/uL Low 4.2-5.4 [facility] Comment on above: Performed By: #### L 501.6710, L101.9900, L503.6005, L500.2500, L100.0100 #### [facility] [address] [place], [address] RDW SD 39.8 fl Normal 35.1-43.9 [facility] Comment on above: Performed By: #### L 501.6710, L101.9900, L503.6005, L500.2500, L100.0100 #### [facility] [address] [place], [address] WBC (Bld) [#/Vol] 8.7 10*3/uL Normal 4.4-11.0 [facility] Comment on above: Performed By: #### L 501.6710, L101.9900, L503.6005, L500.2500, L100.0100 #### [facility] [address] [place], [address] CNOVon 03-20-2025 CNOV Office Visit (WIN ) CARLOS COVARRUBISA ([id number]) 1955 F Date Time Provider Department 03/20/25 3:20 PM LUZ ARITA During your visit today, we recorded the following information about you: Temperature Pulse Respiration Blood pressure 98.2 degrees 71/minute 14/minute 124/60 Luz Arita APRN.[employer] 03/20/2025 4:05 PM Signed This is a 69 year old female who presents today with: The patient is a 69-year-old female with diabetes mellitus, presenting for evaluation of progressive right lower extremity pain with erythema and streaking concerning for infection. HISTORY OF PRESENT ILLNESS: Right Lower Extremity Pain and Discoloration: - Onset approximately 2-3 months ago. - Notable red streaking on the right foot, which appeared just recently. - Severe pain described as "numb, but yet all the pain's there." - Pain exacerbated by pressure and movement; unable to tolerate wearing shoes or walking. - Reports severe cramping in the posterior aspect of the leg. - Notable differences in toenail color between feet; right toenails appear white. - Denies known trauma. - December ultrasound to rule out DVT; x-ray of the foot also performed which showed significant arthritis - Scheduled for a nerve test on the but feels unable to tolerate it due to pain. 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 08/07/2011 Seborrheic Keratosis 10/23/2010 Skin tag 08/07/2011 Tobacco abuse 07/13/2013 Trigger finger b/l hands, has had surgeries Type II or unspecified type diabetes mellitus without mention of complication, not stated as uncontrolled Unspecified hereditary and idiopathic peripheral neuropathy PAST SURGICAL HISTORY Procedure Laterality Date CHOLECYSTECTOMY HX 1994 Cholecystectomy, laparoscopic COLONOSCOPY 02/19/2015 ESOPHAGOGASTRODUODENOS COPY TRANSORAL DIAGNOSTIC 03/28/2013 EGD ESOPHAGOGASTRODUODENOS COPY TRANSORAL DIAGNOSTIC 02/23/2017 EGD PAST SURGICAL HISTORY OF 1974 LEANDRO PAST SURGICAL HISTORY OF 1980 Bilateral salpingoophorectomy PAST SURGICAL HISTORY OF 1986 Lumbar laminectomy PAST SURGICAL HISTORY OF 2002- multiple right partial clavicle resection and first rib resection- septic arthritis PAST SURGICAL HISTORY OF 07/2016 back surgery Lumbar/ thoracic ALLERGIES Augmentin [Amoxicillin-Pot Clavulanate], Biaxin [Clarithromycin], Byetta [Exenatide], Glucophage [Metformin], Iodine, Latex, and Omnicef [Cefdinir] MEDICATIONS Current Outpatient Medications Medication Sig HYDROcodone-acetaminop hen (NORCO) 5-325 mg per tablet Take 1 tablet by mouth every 8 hours as needed for pain for up to 7 days. gabapentin (NEURONTIN) 300 mg capsule Take 1 tablet by mouth in the morning and afternoon. Take 4 tablets at bedtime. lisinopril (ZESTRIL) 20 mg tablet Take 1.5 tablets by mouth once daily. omeprazole (PRILOSEC) 40 mg capsule Take 1 capsule by mouth two times a day. atorvastatin (LIPITOR) 40 mg tablet Take 1 tablet by mouth once daily. glimepiride (AMARYL) 2 mg tablet Take 1 tablet by mouth daily with breakfast. magnesium oxide (MAG-OX) 400 mg (241.3 mg magnesium) tablet Take 1 tablet by mouth once daily. blood sugar diagnostic (BLOOD GLUCOSE TEST) test strip Test blood sugar(s) 2 times daily. Dx: Type 2 DM - Uncontrolled E11.65 Insulin: Yes gabapentin (NEURONTIN) 300 mg capsule Take 300mg by mouth in the morning and afternoon. Take 1200mg at bedtime. traZODone (DESYREL) 100 mg table (more content not included)... [facility]25 C-REACTIVE PROT < 3.00 Normal 0.0-3.0 [facility] Comment on above: Performed By: #### L 501.6710, L101.9900, L503.6005, L500.2500, L100.0100 #### [facility] [address] [place], [address] Carbon dioxide, total [Moles /volume] in Central venous bloodOrdered By: Chris Medina on 03-20-2025 CO2 [Moles/Vol] 25.4 mmol/L 21.0-32.0 [facility] Chloride assayOrdered By: Huey Medina on 03-20-2025 Chloride [Moles/Vol] 102 mmol/L 98-108 [facility] Emergency Department Summary on 03-20-2025 Emergency Department Summary [facility] Medical Records Department [address] [place] [address] Emergency Department Summary 03/20/25 MR#: [id number] Acct: [id number] Name: CARLOS COVARRUBIAS Rep #: [id number] : 1955 69 From: Chris Medina MD PCP: Dr. El Driver, DO Status:REG ER Location: ED HPI History of Present Illness Chief Complaint: Cellulitis Informant: patient and family (daughter) Narrative Narrative: Patient is a 69-year-old female with a history of DM presenting with right foot pain and erythema. Patient is accompanied by her daughter, who is supplementing history. - Reports severe right foot pain and erythema for the past 1.5 months, worsening over the past week. - Pain is described as "excruciating" and is not relieved by current analgesics; currently taking [place], which she started 2-3 days ago. - Denies fever. - Reports an itchy rash on her left upper arm, which she suspects may be related to [place] use, latter started 3d ago, but no rash elsewhere. - Denies any other acute issues besides right foot pain and erythema. - Denies any recent trauma to the foot. - Reports a fall 2 months ago, during which she "guided herself down" and did not sustain any injuries. - Has a history of previous infections. - Recent blood work reportedly negative for gout. - Has a scheduled appointment with a high school academic coach this coming Tuesday. [facility] Medical History Encounter for screening for malignant neoplasm of lung PAD (peripheral artery disease) SOB (shortness of breath) Carotid artery disease Macular degeneration ASCVD (arteriosclerotic cardiovascular disease) DDD (degenerative disc disease), cervical Cervical radiculopathy Paraspinal muscle spasm Encounter for screening for malignant neoplasm of lung in former smoker who quit in past 15 years with 30 pack year history or greater Former smoker Hemoglobin A1c greater than 8.0% Neoplasm of skin of back 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 Vitamin deficiency Vision problems Pneumonia Neuropathy Recurrent infections Hormone deficiency Anxiety and depression Chronic bronchitis Cataracts, bilateral Breast lump UTI (urinary tract infection) Back problem Arthritis GERD (gastroesophageal reflux disease) Obesity Exertional chest pain (10/06/20) Cellulitis Nonobstructive atherosclerosis of coronary artery Essential (primary) hypertension osteomyelitis left rib Tobacco user Dyslipidemia Diabetes mellitus, type 2 Agitated depression Home Medications ???Medication ???Instructions ???Recorded ???Last Taken ???Type aspirin 81 mg tablet,delayed 81 mg PO DAILY heart health 07/01/19 20:00 History release 81 mg glimepiride 2 mg tablet 2 mg PO DAILY diabetes 02/05/16 10:00 History 2 mg vit C 250 mg-vit E 90 mg-zinc 40 1 cap PO BID vitamin 07/02/1906/20 10:00 History mg-copper 1 px-auynig-vadttw 1 capsule capsule atorvastatin 40 mg tablet 40 mg PO QHS cholesterol #30 tabs 07/03/19 Unknown Rx calcium carbonate (Calcium 500) 500 mg PO DAILY 08/07/19 Unknown H istory cholecalciferol (vitamin D3) 50 50 mcg PO DAILY 08/07/19 Unknown H istory mcg (2,000 unit) capsule lactobacillus combination no.9 4 4,000 mmu cells PO DAILY 07/16/21 Unknown History billion cell capsule (Adult 50 Plus Probiotic) hydrocodone-acetaminop hen 5-325mg 1 tab PO Q6H PRN PRN Pain 3 days 08/03/23 Unknown Rx 5mg-325mg #10 TABLETS insulin NPH isoph U-100 human 100 35 unit subcut QAM 01/26/23 Unkno wn History unit/mL subcutaneous suspension (Humulin N NPH U-100 Insulin (isophane susp)) insulin NPH isoph U-100 human 100 45 unit subcut QPM 01/26/23 Unkno wn History unit/mL subcutaneous suspension (Humulin N NPH U-100 Insulin (isophane susp)) insulin regular human 100 unit/mL 37 unit subcut DAILY diabetes 03/12 Unknown History injection solution lisinopril 20 mg tablet 30 mg PO DAILY 01/26/23 Unknown Hi story omeprazole 40 mg capsule,delayed 40 mg PO BID reflux 01/26/23 Unkno wn History release ondansetron 4 mg disintegrating 4 mg PO Q8H PRN nausea and vomitin g 01/26/23 Unknown History tablet trazodone 100 mg tablet 200 mg PO QHS sleep 01/26/23 Unkno wn History mecobalamin (vitamin B12) 1,000 1,000 mcg PO DAILY 01/27/23 Unknow n History mcg chewable tablet cephalexin 500 mg capsule 500 mg PO Q6 #40 CAPSULES 03/20/25 Unknown Rx fluconazole 150 mg tablet 150 mg PO .once #1 TAB 03/20/25 Un known Rx gabapentin 300 mg capsule 1,200 mg PO QHS 03/20/25 Unknown H istory gabapentin 300 mg capsule 300 mg PO DAILY 03/20/25 Unknown H istory magnesium oxide 400 mg (241.3 mg 400 mg PO DAILY 03/20/25 Unknown H istory magnesium) tablet sertraline 50 mg tablet 50 m (more content not included)... Normal [facility] Eosinophil percentageOrdered By: Chris Medina on 03-20-2025 Eosinophils/100 WBC (Bld) 0.3 % 0-5 [facility] Erythrocyte Sed Rateon 03-20 SED RATE 7 mm/hr Normal 0-30 [facility] Comment on above: Performed By: #### L 501.6210, L101.9900, L503.6005, L500.2500, L100.0100 #### [facility] [address] [place], [address] Erythrocyte distribution wid th ratioOrdered By: Chris Medina on 03-20-2025 Erythrocyte distribution width (RBC) [Ratio] 12.3 % 11.6-14.6 [facility] Erythrocyte distribution wid th standard deviationOrdered By: Chris Medina on 03-20-2025 Erythrocyte distribution width (RBC) [Ratio] 39.8 fl 35.1-43.9 [facility] Erythrocyte sedimentation ra teOrdered By: Chris Medina on 03-20-2025 ESR (Bld) [Velocity] 7 mm/h 0-30 [facility] Foot min 3 Viewson 5 Foot min 3 Views [facility] Imaging Services [address] [place], [place] [address] Foot min 3 Views MR#: [id number] Acct: [id number] Name: CARLOS COVARRUBIAS Rep #: [id number] : 1955 F 69 From: Dimas Robb MD PCP: Dr. El Driver DO Status: REG ER Study: Foot min 3 Views Date of Exam: 03/20/25 Exam# [id number] Ordering Dr: Chris Medina MD PROCEDURE: RIGHT FOOT MIN 3 VIEWS 03/20/2025 REASON FOR EXAM: PAIN, FALL, POSS INFECTION FOREFOOT TECHNIQUE: Procedure Code: RADFO Modality: DX Procedure: FOOT MIN 3 VIEWS Laterality: Right COMPARISON: None. FINDINGS: No acute fracture or dislocation. Alignment is anatomic. Mild dorsal and plantar calcaneal spurring. No osseous erosion/destruction or periosteal reaction appreciated. No marked soft tissue swelling, subcutaneous emphysema or radiopaque foreign body identified. RAD/Foot min 3 Views IMPRESSION: No acute or aggressive osseous abnormality. Reading Location: [id number] CC: Dr. Chris Medina MD; Dr. El Driver DO [employer]: Signed Normal [facility] Glomerular filtration rate ( GFR) estimation/1.73 sq m using serum, plasma, or whole bOrdered By: Chris Medina on 03-20-2025 GFR/1.73 sq M.predicted among non-blacks MDRD (S/P/Bld) [Vol rate/Area] 67 mL/min/{1.73_m2} >60 [facility] Comment on above: mL/min/1.73m2 CKD-EP I Creatinine Equation (2020) [facility] de[facility]dered By: Chris Medina on 03-20-2025 Glucose [Mass/Vol] 85 mg/dL 74-106 [facility] Comment on above: MANAGEMENT OF PATIEN T CARE PER NURSING PROTOCOL Hematocrit Auto (Bld) [Volum e fraction]Ordered By: Chris Medina on 03-20-2025 Hematocrit (Bld) [Volume fraction] 37.4 % 37-47 [facility] Hemoglobin measurementOrdere d By: Chris Medina on 03-20-2025 Hemoglobin (Bld) [Mass/Vol] 12.8 g/dL 12.0-15.0 [facility] Immature granulocytes/100 WB C Auto (Bld)Ordered By: Chris Medina on 03-20-2025 Immature granulocytes/100 WBC (Bld) 0.300 % 0.0-0.9 [facility] Comment on above: IG% - Immature Granu locytes (promyelocytes, myelocytes and metamyelocytes) > 1% indicates that a LEFT SHIFT is Present. Lactic Acidon 03-20-2025 Lactate [Moles/Vol] 1.6 mmol/L Normal 0.0-2.0 [facility] Comment on above: Order Comment: Y Performed By: #### L 501.6710, L101.9900, L503.6005, L500.2500, L100.0100 #### [facility] [address] [place] [address]. [place], [address] Lactic acid measurementOrder ed By: Chris Medina on 03-20-2025 Lactate [Moles/Vol] 1.6 mmol/L 0.0-2.0 [facility] MCV (mean corpuscular volume ) determinationOrdered By: Chris Medina on 03-20-2025 MCV (RBC) [Entitic vol] 89.3 fL 81-99 [facility] Mean corpuscular hemoglobin (MCH) determinationOrdered By: Chris Medina on 03-20-2025 MCH (RBC) [Entitic mass] 30.5 pg 27.0-32.0 [facility] Mean corpuscular hemoglobin concentration (MCHC) determinationOrdered By: Chris Medina on 03-20-2025 MCHC (RBC) [Mass/Vol] 34.2 g/dL 32-36 [facility] Mean platelet volume determi nationOrdered By: Chris Medina on 03-20-2025 Platelet mean volume (Bld) [Entitic vol] 9.8 fL 6.2-12.0 [facility] Monocyte percentageOrdered B y: Chris Medina on 03-20-2025 Monocytes/100 WBC (Bld) 7.6 % 0-10 [facility] Neutrophil percentageOrdered By: Chris Medina on 03-20-2025 Neutrophils/100 WBC (Bld) 62.4 % 47-70 [facility] Nucleated red blood cell per centageOrdered By: Chris Medina on 03-20-2025 Nucleated RBC/100 WBC (Bld) [Ratio] 0 % 0-5 [facility] Platelet countOrdered By: Huey Medina on 03-20-2025 Platelets (Bld) [#/Vol] 234 10*3/uL 150-450 [facility] Potassium measurement (mass/ volume)Ordered By: Chris Medina on 03-20-2025 Potassium (Unsp spec) [Mass/Vol] 4.1 mmol/L 3.3-5.1 [facility] RBC Auto (Bld) [#/Vol]Ordere d By: Chris Medina on 03-20-2025 RBC (Bld) [#/Vol] 4.19 10*6/uL Low 4.2-5.4 [facility] Serum creatinine measurement (mass/volume)Ordered By: Chris Medina on 03-20-2025 Creatinine [Mass/Vol] 0.92 mg/dL 0.70-1.20 [facility] Serum glucose measurement (m ass/volume)Ordered By: Chris Medina on 03-20-2025 Glucose [Mass/Vol] 189 mg/dL High 70-99 [facility] Serum or plasma C reactive p rotein measurement (mass/volume)Ordered By: Chris Medina on 03-20-2025 CRP [Mass/Vol] mg/L 0.0-3.0 [facility] Serum or plasma calcium matthew urement (mass/volume)Ordered By: Chris Medina on 03-20-2025 Calcium [Mass/Vol] 9.3 mg/dL 7.6-11.0 [facility] Serum or plasma urea nitroge n measurement (mass/volume)Ordered By: Chris Medina on 03-20-2025 Urea nitrogen [Mass/Vol] 21 mg/dL High 4-19 [facility] Sodium levelOrdered By: Nicholas Medina on 03-20-2025 Sodium [Moles/Vol] 139 mmol/L 133-145 [facility] White blood cell (WBC) count Ordered By: Chris Medina on 03-20-2025 WBC (Bld) [#/Vol] 8.7 10*3/uL 4.4-11.0 [facility] CNPNon 03-19-2025 CNPN Telephone (PODIWS) CARLOS COVARRUBIAS ([id number]) 1955 F Date Time Provider Department 03/19/25 EMENAKSHI HAMMIWS During your visit today, we recorded the following information about you: Eve Power MA 03/19/2025 11:10 AM Signed Patients daughter phones to report an increase in patients foot/leg symptoms. She reports increase in temperature, redness, and pain. She is reporting a new rash starting on the leg. She states patient is unable to bear weight at this time. Patient and family requesting a sooner appointment. Appointment has been added to wait list and family advised to send pictures to PCP as they have been seen for this problem recently. SUZANNE De Souza Amanda, RN 03/19/2025 11:38 AM Addendum Currently Scheduled for 04/09/25 which is first available. On the waitlist. Xrays have been done by Dr. Peres office and Patient had been started on [place] yesterday for the pain. Ivy Christopher RN 03/25/2025 8:49 AM Signed Patient's appointment was able to be moved up to 03/26/25 Allergies As of Date: 03/19/2025 Noted Allergy Reaction AUGMENTIN (AMOXICILLIN-POT CLAVUL*04/25/2018 8 - GI Upset Comments: Nausea, vomiting BIAXIN (CLARITHROMYCIN) 03/27/2007 8 - GI Upset Comments: Metallic taste; can tolerate Zpak BYETTA (EXENATIDE) 07/25/2006 5 - Intolerance Comments: GI upset GLUCOPHAGE (METFORMIN) 07/25/2006 5 - Intolerance Comments: GI upset IODINE 01/16/2004 7 - Swelling Comments: myleogram dye LATEX 09/25/2014 16 - Unknown OMNICEF (CEFDINIR) 04/25/2018 8 - GI Upset Comments: Nausea, vomiting Date Reviewed: 02/01/2025 Reviewed by: Mandy Holloway MA - Fully Assessed Reason for Visit: Patient Update [1234] Cmt: Increasing symptoms Prescriptions as of 03/25/2025 - HYDROcodone-acetaminop hen (NORCO) 5-325 mg per tablet Take 1 tablet by mouth every 8 hours as needed for pain for up to 7 days. - gabapentin (NEURONTIN) 300 mg capsule Take 1 tablet by mouth in the morning and afternoon. Take 4 tablets at bedtime. - lisinopril (ZESTRIL) 20 mg tablet Take 1.5 tablets by mouth once daily. - omeprazole (PRILOSEC) 40 mg capsule Take 1 capsule by mouth two times a day. - atorvastatin (LIPITOR) 40 mg tablet Take 1 tablet by mouth once daily. - glimepiride (AMARYL) 2 mg tablet Take 1 tablet by mouth daily with breakfast. - magnesium oxide (MAG-OX) 400 mg (241.3 mg magnesium) tablet Take 1 tablet by mouth once daily. - blood sugar diagnostic (BLOOD GLUCOSE TEST) test strip Test blood sugar(s) 2 times daily. Dx: Type 2 DM - Uncontrolled E11.65 Insulin: Yes - gabapentin (NEURONTIN) 300 mg capsule Take 300mg by mouth in the morning and afternoon. Take 1200mg at bedtime. - traZODone (DESYREL) 100 mg tablet Take 2 tablets by mouth daily at bedtime. - sertraline (ZOLOFT) 50 mg tablet Take 1 tablet by mouth once daily. - fluticasone (FLONASE) 50 mcg/actuation nasal spray Use 2 Sprays in each nostril once daily. Rinse mouth after use. - triamcinolone acetonide (KENALOG) 0.1 % cream Apply 1 application to affected area three times a day. Apply sparingly to area for rash/itching. - ondansetron orally disintegrating (ZOFRAN ODT) 4 mg disintegrating tablet Take 1 tablet by mouth every 8 hours as needed for nausea/vomiting. - Blood-Glucose Meter monitoring kit Test blood sugar(s) 2 times daily. Glucose Meter of Choice - Kit - Dx: Type 2 DM - Uncontrolled E11.65 - Insulin Syringe-Needle U-100 (BD INSULIN SYRINGE UF) 0.5 mL 30 gauge x 1/2" inject with insulin Four times a day with each meal and at bedtime as directed - ACCU-CHEK GUIDE GLUCOSE METER USE DIRECTED - Blood-Glucose Meter monitoring kit Glucose Meter of Choice - Kit - Dx: Type 2 DM - Uncontrolled E11.65 - insulin regular, human (NOVOLIN R REGULAR U-100 INSULN INJECTION) by INJECTION(UNSPECIFIED PARENTERAL ROUTES) route. 34 units in the Am - insulin NPH injection (HumuLIN N,NovoLIN N) 35 units in the Am 45 units in the PM - Lancets lancets Test blood sugar(s) BID times daily. Dx: Type 2 DM - Uncontrolled E11.65 Insulin: Yes - aspirin, enteric coated (ECOTRIN LOW STRENGTH) 81 mg EC tablet Take 1 tablet by mouth once daily. Problem List As Of Date 03/19/2025 Noted Resolved Open wound of other and unspecified parts of tr*03/27/2004 01/04/2017 Type 2 diabetes mellitus with hyperglycemia, wi* Depressive disorder [F32.A] INSOMNIA NOS [G47.00] 07/25/2006 MIXED HYPERLIPIDEMIA [E78.2] 07/25/2006 SOB (shortness of breath) [R06.02] 09/21/2006 BONE AND CARTILAGE DIS NOS [M89.9, M94.9] 04/05/2007 GRANULOMA ANNULARE///ERYTHEMATOU S COND NEC [L53*05/03/2007 01/04/2017 Vitamin D deficiency [E55.9] 05/05/2007 Seborrheic Keratosis [L82.1] 10/23/2010 01/04/2017 Plantar wart of left foot: plantar 1st MTP [B07*08/07/2011 01/04/2017 Intradermal Nevus: Melanocytic vs Neuroid Nevus* (more content not included)... Normal [facility] CARLOS COVARRUBIAS ([id number]) 1955 F Date Time Provider Department 03/18/25 EL DRIVER [facility] During your visit today, we recorded the following information about you: Sri Ashley LPN 03/18/2025 4:16 PM Signed Patient calling said the Tramadol is not helping with her right foot pain. She takes tylenol 1000 mg a few hours after she takes the tramadol because of the pain. Patient said her toes and front half of her foot hurts to touch it or have anything on it, gets more red as day goes on. She can not see Podiatry until later March. Patient asking what else can she for the pain? Patient said she is scheduled for an EMG and she is not going to be able to do the test because of the pain. Please advise El Driver DO 03/18/2025 4:44 PM Signed Please have her do a trial of [place] for pain instead of tramadol. Update me with how she is doing with this as an alternative for her foot pain El Driver DO The following approved medication requests have been transmitted electronically. Requested Prescriptions Signed Prescriptions Disp Refills HYDROcodone-acetaminop hen (NORCO) 5-325 mg per tablet 21 tablet 0 Sig: Take 1 tablet by mouth every 8 hours as needed for pain for up to 7 days. Authorizing Provider: EL DRIVER DO Detwiler-Green, Susan LPN 03/18/2025 5:00 PM Signed Daughter informed. Allergies As of Date: 03/18/2025 Noted Allergy Reaction AUGMENTIN (AMOXICILLIN-POT CLAVUL*04/25/2018 8 - GI Upset Comments: Nausea, vomiting BIAXIN (CLARITHROMYCIN) 03/27/2007 8 - GI Upset Comments: Metallic taste; can tolerate Zpak BYETTA (EXENATIDE) 07/25/2006 5 - Intolerance Comments: GI upset GLUCOPHAGE (METFORMIN) 07/25/2006 5 - Intolerance Comments: GI upset IODINE 01/16/2004 7 - Swelling Comments: myleogram dye LATEX 09/25/2014 16 - Unknown OMNICEF (CEFDINIR) 04/25/2018 8 - GI Upset Comments: Nausea, vomiting Date Reviewed: 02/01/2025 Reviewed by: Mandy Holloway MA - Fully Assessed Reason for Visit: Patient Question [1477] Primary Visit Diagnosis:Foot pain, right [M79.671] Other Visit Diagnoses:Localized swelling of right foot [R22.41] Erythema of foot [L53.9] Order(s):HYDROcodone-a cetaminophen (NORCO) 5-325 mg per tabletTake 1 tablet by mouth every 8 hours as needed for pain for up to 7 days.Disp: 21 tabletRfl: 0 Prescriptions as of 03/18/2025 - HYDROcodone-acetaminop hen (NORCO) 5-325 mg per tablet Take 1 tablet by mouth every 8 hours as needed for pain for up to 7 days. - gabapentin (NEURONTIN) 300 mg capsule Take 1 tablet by mouth in the morning and afternoon. Take 4 tablets at bedtime. - lisinopril (ZESTRIL) 20 mg tablet Take 1.5 tablets by mouth once daily. - omeprazole (PRILOSEC) 40 mg capsule Take 1 capsule by mouth two times a day. - atorvastatin (LIPITOR) 40 mg tablet Take 1 tablet by mouth once daily. - glimepiride (AMARYL) 2 mg tablet Take 1 tablet by mouth daily with breakfast. - traMADol (ULTRAM) 50 mg tablet Take 1-2 tablets by mouth every 6 hours as needed for pain for up to 7 days. - magnesium oxide (MAG-OX) 400 mg (241.3 mg magnesium) tablet Take 1 tablet by mouth once daily. - blood sugar diagnostic (BLOOD GLUCOSE TEST) test strip Test blood sugar(s) 2 times daily. Dx: Type 2 DM - Uncontrolled E11. Insulin: Yes - gabapentin (NEURONTIN) 300 mg capsule Take 300mg by mouth in the morning and afternoon. Take 1200mg at bedtime. - traZODone (DESYREL) 100 mg tablet Take 2 tablets by mouth daily at bedtime. - sertraline (ZOLOFT) 50 mg tablet Take 1 tablet by mouth once daily. - fluticasone (FLONASE) 50 mcg/actuation nasal spray Use 2 Sprays in each nostril once daily. Rinse mouth after use. - triamcinolone acetonide (KENALOG) 0.1 % cream Apply 1 application to affected area three times a day. Apply sparingly to area for rash/itching. - ondansetron orally disintegrating (ZOFRAN ODT) 4 mg disintegrating tablet Take 1 tablet by mouth every 8 hours as needed for nausea/vomiting. - Blood-Glucose Meter monitoring kit Test blood sugar(s) 2 times daily. Glucose Meter of Choice - Kit - Dx: Type 2 DM - Uncontrolled . - Insulin Syringe-Needle U-100 (BD INSULIN SYRINGE UF) 0.5 mL 30 gauge x 1/2" inject with insulin Four times a day with each meal and at bedtime as directed - ACCU-CHEK GUIDE GLUCOSE METER USE DIRECTED - Blood-Glucose Meter monitoring kit Glucose Meter of Choice - Kit - Dx: Type 2 DM - Uncontrolled . - insulin regular, human (NOVOLIN R REGULAR U-100 INSULN INJECTION) by INJECTION(UNSPECIFIED PARENTERAL ROUTES) route. 34 units in the Am - insulin NPH injection (HumuLIN N,NovoLIN N) 35 units in the Am 45 units in the PM - Lancets lancets Test blood sugar(s) BID times daily. Dx: Type 2 DM - Uncontrolled . Insulin: Yes - aspirin, enteric co (more content not included)... Normal [facility]20[facility] CARLOS COVARRUBIAS ([id number]) 1955 F Date Time Provider Department 03/15/25 EL DRIVERWS During your visit today, we recorded the following information about you: El Driver DO 03/15/2025 4:59 PM Signed Please inform patient that her xray shows no signs of fracture but does show a lot of arthritis within her foot as below RESULT: No acute fracture or dislocation. Right first metatarsophalangeal joint space narrowing with marginal osteophytes. Mild to moderate narrowing of multiple interphalangeal joints with marginal osteophytes. Plantar and posterior calcaneal spurs. IMPRESSION IMPRESSION: No acute fracture. Degenerative disease of the right foot. Needs to follow up with the foot doc as soon as able DO Cheryl Farah Susan LPN 03/18/2025 2:22 PM Signed Pt. informed via My Chart. Allergies As of Date: 03/15/2025 Noted Allergy Reaction AUGMENTIN (AMOXICILLIN-POT CLAVUL*04/25/2018 8 - GI Upset Comments: Nausea, vomiting BIAXIN (CLARITHROMYCIN) 03/27/2007 8 - GI Upset Comments: Metallic taste; can tolerate Zpak BYETTA (EXENATIDE) 07/25/2006 5 - Intolerance Comments: GI upset GLUCOPHAGE (METFORMIN) 07/25/2006 5 - Intolerance Comments: GI upset IODINE 01/16/2004 7 - Swelling Comments: myleogram dye LATEX 09/25/2014 16 - Unknown OMNICEF (CEFDINIR) 04/25/2018 8 - GI Upset Comments: Nausea, vomiting Date Reviewed: 02/01/2025 Reviewed by: Mandy Holloway MA - Fully Assessed Prescriptions as of 03/18/2025 - gabapentin (NEURONTIN) 300 mg capsule Take 1 tablet by mouth in the morning and afternoon. Take 4 tablets at bedtime. - lisinopril (ZESTRIL) 20 mg tablet Take 1.5 tablets by mouth once daily. - omeprazole (PRILOSEC) 40 mg capsule Take 1 capsule by mouth two times a day. - atorvastatin (LIPITOR) 40 mg tablet Take 1 tablet by mouth once daily. - glimepiride (AMARYL) 2 mg tablet Take 1 tablet by mouth daily with breakfast. - traMADol (ULTRAM) 50 mg tablet Take 1-2 tablets by mouth every 6 hours as needed for pain for up to 7 days. - magnesium oxide (MAG-OX) 400 mg (241.3 mg magnesium) tablet Take 1 tablet by mouth once daily. - blood sugar diagnostic (BLOOD GLUCOSE TEST) test strip Test blood sugar(s) 2 times daily. Dx: Type 2 DM - Uncontrolled Insulin: Yes - gabapentin (NEURONTIN) 300 mg capsule Take 300mg by mouth in the morning and afternoon. Take 1200mg at bedtime. - traZODone (DESYREL) 100 mg tablet Take 2 tablets by mouth daily at bedtime. - sertraline (ZOLOFT) 50 mg tablet Take 1 tablet by mouth once daily. - fluticasone (FLONASE) 50 mcg/actuation nasal spray Use 2 Sprays in each nostril once daily. Rinse mouth after use. - triamcinolone acetonide (KENALOG) 0.1 % cream Apply 1 application to affected area three times a day. Apply sparingly to area for rash/itching. - ondansetron orally disintegrating (ZOFRAN ODT) 4 mg disintegrating tablet Take 1 tablet by mouth every 8 hours as needed for nausea/vomiting. - Blood-Glucose Meter monitoring kit Test blood sugar(s) 2 times daily. Glucose Meter of Choice - Kit - Dx: Type 2 DM - Uncontrolled - Insulin Syringe-Needle U-100 (BD INSULIN SYRINGE UF) 0.5 mL 30 gauge x 1/2" inject with insulin Four times a day with each meal and at bedtime as directed - ACCU-CHEK GUIDE GLUCOSE METER USE DIRECTED - Blood-Glucose Meter monitoring kit Glucose Meter of Choice - Kit - Dx: Type 2 DM - Uncontrolled - insulin regular, human (NOVOLIN R REGULAR U-100 INSULN INJECTION) by INJECTION(UNSPECIFIED PARENTERAL ROUTES) route. 34 units in the Am - insulin NPH injection (HumuLIN N,NovoLIN N) 35 units in the Am 45 units in the PM - Lancets lancets Test blood sugar(s) BID times daily. Dx: Type 2 DM - Uncontrolled Insulin: Yes - aspirin, enteric coated (ECOTRIN LOW STRENGTH) 81 mg EC tablet Take 1 tablet by mouth once daily. 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 Normal [facility] 03-12-2025 [facility] Telephone (FAMPWS) CARLOS COVARRUBIAS ([id number]) 1955 F Date Time Provider Department [facility]/12[facility] During your visit today, we recorded the following information about you: El DriverDO 03/12/2025 3:50 PM Signed Please let her know that her labs are all overall stable/normal Her A1c is improved to 6%. I am still waiting on results of her foot xray Uric acid gout levels and inflammation labs are all normal El Driver DO Aida Guerrero LPN 03/12/2025 3:52 PM Signed LEFT MESSAGE FOR PATIENT TO CALL BACK /Natalia Batista LPN, RN 03/13/2025 10:19 AM Signed Patient calls and notified of results and providers instructions. Patient verbalizes understanding. Patient aware x-ray is pending and will be contacted once complete and reviewed by PCP. Natalia Urbano RN Allergies As of Date: 03/12/2025 Noted Allergy Reaction AUGMENTIN (AMOXICILLIN-POT CLAVUL*04/25/2018 8 - GI Upset Comments: Nausea, vomiting BIAXIN (CLARITHROMYCIN) 03/27/2007 8 - GI Upset Comments: Metallic taste; can tolerate Zpak BYETTA (EXENATIDE) 07/25/2006 5 - Intolerance Comments: GI upset GLUCOPHAGE (METFORMIN) 07/25/2006 5 - Intolerance Comments: GI upset IODINE 01/16/2004 7 - Swelling Comments: myleogram dye LATEX 09/25/2014 16 - Unknown OMNICEF (CEFDINIR) 04/25/2018 8 - GI Upset Comments: Nausea, vomiting Date Reviewed: 02/01/2025 Reviewed by: Mandy Holloway MA - Fully Assessed Reason for Visit: Results [95] Prescriptions as of 03/13/2025 - gabapentin (NEURONTIN) 300 mg capsule Take 1 tablet by mouth in the morning and afternoon. Take 4 tablets at bedtime. - lisinopril (ZESTRIL) 20 mg tablet Take 1.5 tablets by mouth once daily. - omeprazole (PRILOSEC) 40 mg capsule Take 1 capsule by mouth two times a day. - atorvastatin (LIPITOR) 40 mg tablet Take 1 tablet by mouth once daily. - glimepiride (AMARYL) 2 mg tablet Take 1 tablet by mouth daily with breakfast. - traMADol (ULTRAM) 50 mg tablet Take 1-2 tablets by mouth every 6 hours as needed for pain for up to 7 days. - magnesium oxide (MAG-OX) 400 mg (241.3 mg magnesium) tablet Take 1 tablet by mouth once daily. - blood sugar diagnostic (BLOOD GLUCOSE TEST) test strip Test blood sugar(s) 2 times daily. Dx: Type 2 DM - Uncontrolled E11.65 Insulin: Yes - gabapentin (NEURONTIN) 300 mg capsule Take 300mg by mouth in the morning and afternoon. Take 1200mg at bedtime. - traZODone (DESYREL) 100 mg tablet Take 2 tablets by mouth daily at bedtime. - sertraline (ZOLOFT) 50 mg tablet Take 1 tablet by mouth once daily. - fluticasone (FLONASE) 50 mcg/actuation nasal spray Use 2 Sprays in each nostril once daily. Rinse mouth after use. - triamcinolone acetonide (KENALOG) 0.1 % cream Apply 1 application to affected area three times a day. Apply sparingly to area for rash/itching. - ondansetron orally disintegrating (ZOFRAN ODT) 4 mg disintegrating tablet Take 1 tablet by mouth every 8 hours as needed for nausea/vomiting. - Blood-Glucose Meter monitoring kit Test blood sugar(s) 2 times daily. Glucose Meter of Choice - Kit - Dx: Type 2 DM - Uncontrolled E11.65 - Insulin Syringe-Needle U-100 (BD INSULIN SYRINGE UF) 0.5 mL 30 gauge x 1/2" inject with insulin Four times a day with each meal and at bedtime as directed - ACCU-CHEK GUIDE GLUCOSE METER USE DIRECTED - Blood-Glucose Meter monitoring kit Glucose Meter of Choice - Kit - Dx: Type 2 DM - Uncontrolled E11.65 - insulin regular, human (NOVOLIN R REGULAR U-100 INSULN INJECTION) by INJECTION(UNSPECIFIED PARENTERAL ROUTES) route. 34 units in the Am - insulin NPH injection (HumuLIN N,NovoLIN N) 35 units in the Am 45 units in the PM - Lancets lancets Test blood sugar(s) BID times daily. Dx: Type 2 DM - Uncontrolled E11.65 Insulin: Yes - aspirin, enteric coated (ECOTRIN LOW STRENGTH) 81 mg EC tablet Take 1 tablet by mouth once daily. 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 Normal [facility] CBC W Auto Differential pane l (Bld)on 03-11-2025 Basophils (Bld) [#/Vol] 0.04 10*3/uL Normal <0.11 [facility] Comment on above: Order Comment: Speci men Type: BLOOD SPECIMENOrdering Facility: [facility] Address: [address] [place] [address] Performed By: #### 5 7021-8, 4537-7 ####[facility] LABCLIA [id number] [place] [address] [place] Basophils/100 WBC (Bld) 0.6 % Normal [facility] Comment on above: Order Comment: Speci men Type: BLOOD SPECIMENOrdering Facility: [facility] Address: [address] [place] [address] Performed By: #### 5 7021-8, 4537-7 ####[facility] LABCLIA [id number] [place] [address] [place] Differential cell count method Nom (Bld) Auto Normal [facility] Comment on above: Order Comment: Speci men Type: BLOOD SPECIMENOrdering Facility: [facility] Address: [address] [place] [address] Performed By: #### 5 7021-8, 4537-7 ####[facility] LABCLIA [id number] [place] [address] [place] Eosinophils (Bld) [#/Vol] 0.05 10*3/uL Normal <0.46 [facility] Comment on above: Order Comment: Speci men Type: BLOOD SPECIMENOrdering Facility: [facility] Address: [address] [place] [address] Performed By: #### 5 7021-8, 7-7 ####[facility] LABCLIA [id number] [place] [address] [place] Eosinophils/100 WBC (Bld) 0.8 % Normal [facility] Comment on above: Order Comment: Speci men Type: BLOOD SPECIMENOrdering Facility: [facility] Address: [address] [place] [address] Performed By: #### 5 7021-8, 4536-7 ####[facility] LABIA [id number] [place] [address] [place] Erythrocyte distribution width (RBC) [Ratio] 12.2 % Normal 11.5-15.0 [facility] Comment on above: Order Comment: Speci men Type: BLOOD SPECIMENOrdering Facility: [facility] Address: [address] [place] [address] Performed By: #### 5 7021-8, 4536-7 ####[facility] LABCLIA [id number] [place] [address] [place] Hematocrit (Bld) [Volume fraction] 39.7 % Normal 36.0-46.0 [facility] Comment on above: Order Comment: Speci men Type: BLOOD SPECIMENOrdering Facility: [facility] Address: [address] [place] [address] Performed By: #### 5 7021-8, 4536-7 ####[facility] LABCLIA [id number] [place] [address] [place] Hemoglobin (Bld) [Mass/Vol] 12.9 g/dL Normal 11.5-15.5 [facility] Comment on above: Order Comment: Speci men Type: BLOOD SPECIMENOrdering Facility: [facility] Address: [address] [place] [address] Performed By: #### 5 7021-8, 4537-7 ####[facility] LABCLIA [id number] [place] [address] [place] Immature granulocytes (Bld) [#/Vol] 10*3/uL Normal <0.10 [facility] Comment on above: Order Comment: Speci men Type: BLOOD SPECIMENOrdering Facility: [facility] Address: [address] [place] [address] Performed By: #### 5 7021-8, 4536-7 ####[facility] LABCLIA [id number] [place] [address] [place] Immature granulocytes/100 WBC (Bld) 0.2 % Normal [facility] Comment on above: Order Comment: Speci men Type: BLOOD SPECIMENOrdering Facility: [facility] Address: [address] [place] [address] Performed By: #### 5 7021-8, 4536-7 ####[facility] LABCLIA [id number] [place] [address] [place] Lymphocytes (Bld) [#/Vol] 2.54 10*3/uL Normal 1.00-4.00 [facility] Comment on above: Order Comment: Speci men Type: BLOOD SPECIMENOrdering Facility: [facility] Address: [address] [place] [address] Performed By: #### 5 7021-8, 4536-7 ####[facility] LABIA [id number] [place] [address] [place] Lymphocytes/100 WBC (Bld) 38.1 % Normal [facility] Comment on above: Order Comment: Speci men Type: BLOOD SPECIMENOrdering Facility: [facility] Address: [address] [place] [address] Performed By: #### 5 7021-8, 7 ####[facility] LABIA [id number] [place] [address] [place] OF ANA MCH (RBC) [Entitic mass] 29.5 pg Normal 26.0-34.0 [facility] Comment on above: Order Comment: Speci men Type: BLOOD SPECIMENOrdering Facility: [facility] Address: [address] [place] [address] Performed By: #### 5 7021-8, 7 ####[facility] LABIA [id number] [place] [address] [place] MCHC (RBC) [Mass/Vol] 32.5 g/dL Normal 30.5-36.0 [facility] Comment on above: Order Comment: Speci men Type: BLOOD SPECIMENOrdering Facility: [facility] Address: [address] [place] [address] Performed By: #### 5 7021-8, 7 ####[facility] [id number] [place] [address] [place] MCV (RBC) [Entitic vol] 90.6 fL Normal 80.0-100.0 [facility] Comment on above: Order Comment: Speci men Type: BLOOD SPECIMENOrdering Facility: [facility] Address: [address] [place] [address] Performed By: #### 5 7021-8, 4536-12 ####[facility] LABCLIA [id number] [facility] [address] [place] [address] [place] Monocytes (Bld) [#/Vol] 0.45 10*3/uL Normal <0.87 [facility] Comment on above: Order Comment: Speci men Type: BLOOD SPECIMENOrdering Facility: [facility] Address: [address] [place] [address] Performed By: #### 5 7021-8, 4536-12 ####[facility] LABCLIA [id number] [address], [facility] [place] Monocytes/100 WBC (Bld) 6.8 % Normal [facility] Comment on above: Order Comment: Speci men Type: BLOOD SPECIMENOrdering Facility: [facility] Address: [address] [place] [address] Performed By: #### 5 7021-8, 4536-12 ####[facility] LABCLIA [id number] [place] [address] [place] Neutrophils (Bld) [#/Vol] 3.57 10*3/uL Normal 1.45-7.50 [facility] Comment on above: Order Comment: Speci men Type: BLOOD SPECIMENOrdering Facility: [facility] Address: [address] [place] [address] Performed By: #### 5 7021-8, 4536-12 ####[facility] LABCLIA [id number] [place] [address] [place] Neutrophils/100 WBC (Bld) 53.5 % Normal [facility] Comment on above: Order Comment: Speci men Type: BLOOD SPECIMENOrdering Facility: [facility] Address: [address] [place] [address] Performed By: #### 5 7021-8, 4536-7 ####[facility] LABCLIA [id number] [place] [id number] [place] Nucleated RBC (Bld) [#/Vol] 10*3/uL Normal <0.01 [facility] Comment on above: Order Comment: Speci men Type: BLOOD SPECIMENOrdering Facility: [facility] Address: [address] [place] [address] Performed By: #### 5 7021-8, 4536-7 ####[facility] LABCLIA [id number] [place] [address] [place] Nucleated RBC/100 WBC (Bld) [Ratio] 0.0 /100 WBC Normal [facility] Comment on above: Order Comment: Speci men Type: BLOOD SPECIMENOrdering Facility: [facility] Address: [address] [place] [address] Performed By: #### 5 7021-8, 4536-7 ####[facility] LABCLIA [id number] [place] [address] [place] Platelet mean volume (Bld) [Entitic vol] 10.2 fL Normal 9.0-12.7 [facility] Comment on above: Order Comment: Speci men Type: BLOOD SPECIMENOrdering Facility: [facility] Address: [address] [place] [address] Performed By: #### 5 7021-8, 4536-7 ####[facility] LABIA [id number] [place] [address] [place] Platelets (Bld) [#/Vol] 241 10*3/uL Normal 150-400 [facility] Comment on above: Order Comment: Speci men Type: BLOOD SPECIMENOrdering Facility: [facility] Address: [address] [place] [address] Performed By: #### 5 7021-8, 4536-7 ####[facility] LABCLIA [id number] [facility] [place] [id number] [place] RBC (Bld) [#/Vol] 4.38 10*6/uL Normal 3.90-5.20 [facility] Comment on above: Order Comment: Speci men Type: BLOOD SPECIMENOrdering Facility: [facility] Address: [address] [place] [address] Performed By: #### 5 7021-8, 4537-7 ####[facility] LABCLIA [id number] [place] [id number] [place] WBC (Bld) [#/Vol] 6.66 10*3/uL Normal 3.70-11.00 [facility] Comment on above: Order Comment: Speci men Type: BLOOD SPECIMENOrdering Facility: [facility] Address: [address] [place] [address] Performed By: #### 5 7021-8, 453-7 ####[facility] LABCLIA [id number] [address] [place] CNOVon 03-11-2025 CNOV Office Visit (FAMPWS ) CARLOS COVARRUBIAS ([id number]) 1955 F Date Time Provider Department 03/11/25 12:00 PM EL DRIVER FAMPWS During your visit today, we recorded the following information about you: Temperature Pulse Respiration Blood pressure 98 degrees 60/minute 20/minute 136/80 Weight 98.9 kg El Driver, DO 03/11/2025 12:40 PM Signed Patient presents with: F/U 3 Month HPI: Carlos Covarrubias is a 69 year old female who presents to the office today for review of health conditions. Concerns today: Lost her balance, felt like her leg strength gave out on her on the right side. Her daughter took her to [facility] EMERGENCY DEPARTMENT. Was told the symptoms were negative for her having a stroke, but was told her back was causing the symptoms. Diagnosed with spinal stenosis lumbar spine. She has been having right foot pain- "It feels like it is bruised so bad that I can't step on it. It feels like I am walking on hot nails." On the lateral part of her foot- has been so painful to the touch. "I can't stand anything touching my foot." Doesn't want to wear shoes. Has been taking tylenol without relief. The pain is so severe and foot feels very restless. No warmth but the foot is red. No use of any new topicals or new medications. Isn't sleeping well due to the pain. Mrs. Covarrubias has past history of diabetes. Since our last visit she denies excessive thirst or increased frequency of urination, chest pain or dyspnea , new or unusual visual symptoms, and low sugar/hypoglycemic reactions. Depression- no. Follows a diabetic diet some of the time. She is compliant with medication(s) and is tolerating med(s) without any side effects. She reports checking her glucose on a twice a day schedule with sugars in the <200 range. Patient's last HgA1C was Hemoglobin A1C (%) Date Value 10/29/2024 6.5 04/16/2024 6.6 02/09/2021 7.0 11/10/2020 7.6 ) Last Ophthalmology exam was within the past 12 months Mrs. Covarrubias reports history of hyperlipidemia. Current therapy includes atorvastatin (Lipitor) 40 mg. Denies side effects of muscle weakness or achiness. Her most recent lipid panels are reviewed. Cholesterol, Total (mg/dL) Date Value 10/29/2024 172 02/09/2021 176 HDL Cholesterol (mg/dL) Date Value 10/29/2024 40 02/09/2021 41 LDL Cholesterol, Calculated (mg/dL) Date Value 10/29/2024 99 02/09/2021 90 LDL Cholesterol Calculated, Nonfasting (mg/dL) Date Value 08/30/2022 99 Triglyceride (mg/dL) Date Value 10/29/2024 192 02/09/2021 223 Mrs. Covarrubias indicates a history of hypertension and states that she is feeling well and denies any symptoms referable to elevated blood pressure. Specifically denies headache, chest pain, palpitations, dyspnea, and peripheral edema. Patient denies any side effects of her medication(s) and is compliant with their regimen. Last 3 Encounter BP Readings: Date: BP: 03/11/2025 136/80 02/01/2025 135/72 01/24/2025 129/72 She watches her diet for sodium, low fat and low cholesterol some of the time. She does not check BP's generally. Carlos gets minimal exercise. 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 08/07/2011 Seborrheic Keratosis 10/23/2010 Skin tag 08/07/2011 Tobacco abuse 07/13/2013 Trigger finger b/l hands, has had surgeries Type II or unspecified type diabetes mellitus without mention of complication, not stated as uncontrolled Unspecified hereditary and idiopathic peripheral neuropathy PAST SURGICAL HISTORY Procedure Laterality Date CHOLECYSTECTOMY HX 1994 Cholecystectomy, laparoscop (more content not included)... Normal [facility] CRP SerPl-mCncon 03-11-2025 CRP [Mass/Vol] mg/L Normal <0.9 [facility] Comment on above: Order Comment: Speci men Type: BLOOD SPECIMENOrdering Facility: [facility] Address: [address] [place] [address] Performed By: #### 2 4323-01, 1987-10, 3083-06 ####[facility] LABCLIA [id number] [facility] [address] [place] [address] [place] Comprehensive metabolic 2000 panelon 03-11-2025 Albumin [Mass/Vol] 4.2 g/dL Normal 3.9-4.9 [facility] Comment on above: Order Comment: Speci men Type: BLOOD SPECIMENOrdering Facility: [facility] Address: [address] [place], [place] [address] Performed By: #### 2 4323-01, 1987-10, 3083-06 ####[facility] LABCLIA [id number] [address] [address] [place] ALP [Catalytic activity/Vol] 91 U/L Normal 34-123 [facility] Comment on above: Order Comment: Speci men Type: BLOOD SPECIMENOrdering Facility: [facility] Address: [address] [place], [place] [address] Performed By: #### 2 4323-01, 1987-10, 3083-06 ####[facility] LABCLIA [id number] [address] [place] [address] [place] ALT [Catalytic activity/Vol] 23 U/L Normal 7-38 [facility] Comment on above: Order Comment: Speci men Type: BLOOD SPECIMENOrdering Facility: [facility] Address: [address] [place] [address] Performed By: #### 2 4328, 1987-10, 3083-06 ####[facility] LABCLIA [id number] [facility] [address] [place] [address] [place] Anion gap [Moles/Vol] 10 mmol/L Normal 8-15 [facility] Comment on above: Order Comment: Speci men Type: BLOOD SPECIMENOrdering Facility: [facility] Address: [address] [place] [address] Performed By: #### 2 4323-8, 1987-10, 3083-06 ####[facility] LABIA [id number] [address] [address] [place] AST [Catalytic activity/Vol] 20 U/L Normal 13-35 [facility] Comment on above: Order Comment: Speci men Type: BLOOD SPECIMENOrdering Facility: [facility] Address: [address] [place], [place] [address] Performed By: #### 2 4328, 1987-10, 3083-06 ####[facility] LABIA [id number] [address] [address] [place] Bilirubin [Mass/Vol] 0.4 mg/dL Normal 0.2-1.3 [facility] Comment on above: Order Comment: Speci men Type: BLOOD SPECIMENOrdering Facility: [facility] Address: [address] [place], [place] [address] Performed By: #### 2 43238, 1987-10, 3083-06 ####[facility] LABIA [id number] [address] [address] [place] Calcium [Mass/Vol] 9.9 mg/dL Normal 8.5-10.2 [facility] Comment on above: Order Comment: Speci men Type: BLOOD SPECIMENOrdering Facility: [facility] Address: [address] [place] [address] Performed By: #### 2 4323-8, 1987-10, 3083-06 ####[facility] LABIA [id number] [address] [address] [place] Chloride [Moles/Vol] 105 mmol/L Normal 98-107 [facility] Comment on above: Order Comment: Speci men Type: BLOOD SPECIMENOrdering Facility: [facility] Address: [address] [place] [address] Performed By: #### 2 4323-8, 1987-10, 3083-06 ####[facility] LABIA [id number] [address] [address] [place] CO2 [Moles/Vol] 26 mmol/L Normal 22-30 [facility] Comment on above: Order Comment: Speci men Type: BLOOD SPECIMENOrdering Facility: [facility] Address: [address] [place], [place] [address] Performed By: #### 2 4328, 1987-10, 3083-06 ####[facility] [id number] [place] [address] [place] Creatinine [Mass/Vol] 0.85 mg/dL Normal 0.58-0.96 [facility] Comment on above: Order Comment: Speci men Type: BLOOD SPECIMENOrdering Facility: [facility] Address: [address] [place] [address] Performed By: #### 2 4328, 1987-10, 3083-06 ####[facility] [id number] [place] [address] [place] eGFRcr SerPlBld CKD-EPI 2020 73 mL/min/1.73m??? Normal >=60 [facility] Comment on above: Order Comment: Speci men Type: BLOOD SPECIMENOrdering Facility: [facility] Address: [address] [place] [address] Result Comment: Krystyna mated Glomerular Filtration Rate (eGFR) is calculated using the 2020 CKD-EPI creatinine equation. This equation utilizes serum creatinine, sex, and age as parameters. The creatinine assay has traceable calibration to isotope dilution-mass spectrometry. Refer to KDIGO guidelines for clinical interpretation. In patients with unstable renal function, e.g. those with acute kidney injury, the eGFR may not accurately reflect actual GFR. Performed By: #### 2 4323-8, 1987-10, 3083-06 ####[facility] LABIA [id number] [place] [address] [place] Glucose [Mass/Vol] 116 mg/dL High 74-99 [facility] Comment on above: Order Comment: Speci men Type: BLOOD SPECIMENOrdering Facility: [facility] Address: [address] [place] [address] Result Comment: The [place] Diabetes Association (ADA) provides guidance for cutoff values for fasting glucose and random glucose. The ADA defines fasting as no caloric intake for at least 8 hours. Fasting plasma glucose results between 100 to 125 mg/dL indicate increased risk for diabetes (prediabetes). Fasting plasma glucose results greater than or equal to 126 mg/dL meet the criteria for diagnosis of diabetes. In the absence of unequivocal hyperglycemia, results should be confirmed by repeat testing. In a patient with classic symptoms of hyperglycemia or hyperglycemic crisis, random plasma glucose results greater than or equal to 200 mg/dL meet the criteria for diagnosis of diabetes. Reference: Standards of Medical Care in Diabetes 2016, [place] Diabetes Association. Diabetes Care. 2016.39(Suppl 1). Performed By: #### 2 4323-01, 3083-06 ####[facility] LABCLIA [id number] [place] [address] [place] Potassium [Moles/Vol] 4.4 mmol/L Normal 3.7-5.1 [facility] Comment on above: Order Comment: Speci men Type: BLOOD SPECIMENOrdering Facility: [facility] Address: [address] [place] [address] Performed By: #### 2 4323-01, 3083-06 ####[facility] LABCLIA [id number] [place] [id number] [place] Protein [Mass/Vol] 7.2 g/dL Normal 6.3-8.0 [facility] Comment on above: Order Comment: Speci men Type: BLOOD SPECIMENOrdering Facility: [facility] Address: [address] [place], [place] [address] Performed By: #### 2 43208-25, 3083-06 ####[facility] LABCLIA [id number] [place] [id number] [place] Sodium [Moles/Vol] 141 mmol/L Normal 136-144 [facility] Comment on above: Order Comment: Speci men Type: BLOOD SPECIMENOrdering Facility: [facility] Address: [address] [place] [address] Performed By: #### 2 4323-8, 1987-10, 3083-06 ####[facility] [id number] [place] [id number] [place] Urea nitrogen [Mass/Vol] 19 mg/dL Normal 7-21 [facility] Comment on above: Order Comment: Speci men Type: BLOOD SPECIMENOrdering Facility: [facility] Address: [address] [place] [address] Performed By: #### 2 4323-8, 1987-10, 3083-06 ####[facility] [id number] [place] [id number] [place] ESR Westergren method (Bld) [Velocity]on 03-11-2025 ESR (Bld) [Velocity] 5 mm/h Normal 0-20 [facility] Comment on above: Order Comment: Speci men Type: BLOOD SPECIMENOrdering Facility: [facility] Address: [address] [place] [address] Performed By: #### 5 7021-8, 4537-7 ####[facility] [id number] [place] [id number] [place] HbA1c (Bld)on 03-11-2025 Average glucose Estimated from glycated hemoglobin (Bld) [Mass/Vol] 126 mg/dL Normal [facility] Comment on above: Order Comment: Speci men Type: BLOOD SPECIMENOrdering Facility: [facility] Address: [address] [place] [address] Result Comment: eAG: (Estimated average glucose) is a calculated value from HgbA1c and is construction sales representative of the average blood glucose level in the last 2-3 month period. Performed By: #### 5 5454-3 ####[facility] LABCLIA [id number] [place] [id number] [place] HbA1c (Bld) [Mass fraction] 6.0 % High 4.3-5.6 [facility] Comment on above: Order Comment: Speci men Type: BLOOD SPECIMENOrdering Facility: [facility] Address: [address] [place] [address] Result Comment: [place] Diabetes Association guidelines indicate that patients with HgbA1c in the range 5.7-6.4% are at increased risk for development of diabetes, and intervention by lifestyle modification may be beneficial. HgbA1c greater or equal to 6.5% is considered diagnostic of diabetes. Performed By: #### 5 5454-3 ####[facility] LABIA [id number] [place] [id number] [place] Urate SerPl-mCncon 5 Urate [Mass/Vol] 5.7 mg/dL Normal 2.5-6.6 [facility] Comment on above: Order Comment: Speci men Type: BLOOD SPECIMENOrdering Facility: [facility] Address: [address] [place] [address] Performed By: #### 2 4323-8, 1987-5, 3084-1 ####[facility] LABIA [id number] [place] [id number] [place] XR FOOT 3V AP/LAT/OBL RTon 0 03-11-2025 XR FOOT 3V AP/LAT/OBL RT * * *Final Report* * * DATE OF EXAM: Mar 11 2025 1:13PM WOX [id number] - XR FOOT 3V AP/LAT/OBL RT / PROCEDURE REASON: multiple diagnoses * * * * Physician Interpretation * * * * EXAMINATION: XR FOOT 3V AP/LAT/OBL RT CLINICAL HISTORY: Right foot pain and swelling Technique: XR FOOT 3V AP/LAT/OBL RT -- RIGHT with 3 views on 3 images Comparison: None RESULT: No acute fracture or dislocation. Right first metatarsophalangeal joint space narrowing with marginal osteophytes. Mild to moderate narrowing of multiple interphalangeal joints with marginal osteophytes. Plantar and posterior calcaneal spurs. IMPRESSION: No acute fracture. Degenerative disease of the right foot. [employer]: RIAN Transcribe Date/Time: Mar 15 2025 2:04P Dictated by : PAM LUND MD This examination was interpreted and the report reviewed and electronically signed by: PAM LUND MD on Mar 15 2025 2:05PM EST [id number] Normal [facility] CNPNon 02-08-2025 CNPN Telephone (NEADMN) CARLOS COVARRUBIAS ([id number]) 1955 F Date Time Provider Department 02/08/25 ADELE HEBERT During your visit today, we recorded the following information about you: Britta Blandon 02/08/2025 4:46 PM Signed Call received for Adele Hebert MD regarding Carlos Covarrubias 1955. Caller: Self Patient Identified by Name and : Yes Was permission obtained from patient ? Yes Reason for Call: Other: Question/Orders Patient would like to move forward with having the nerve test and wait on the MRI. She would need orders needed for the nerve test. She's also asking for clarification one if this will show what he's looking for without getting the MRI? Last Office Visit: Visit date not found Last Distance Health visit: Visit date not found Next scheduled appointment: 08/09/2025 Best number to reach caller: [phone] (home) Best time to reach caller: any Is it OK to leave a detailed voice message? Yes Aedle Jefferson MD 02/11/2025 3:39 PM Signed The EMG and MRI would be looking for different things - EMG would check the lumbar nerve roots to see if its the cause, whereas the spine MRIs would be looking at the cervical and thoracic spine is the source. Each would only be looking at the area mentioned. Whichever one she wants to do first is fine with me. Adele Hebert MD 02/11/2025 3:39 PM Signed Addended by: ADELE HEBERT on: 02/11/2025 03:39 PM Modules accepted: Trena Cameron RN 02/11/2025 3:47 PM Signed This RN attempted to reach patient telephonically inform her that TW is fine with EMG first. Left detailed VM on self-ID machine. TW has placed the order. This RN has sent a message to the S[employer] front desk coordinator to call the patient to assist with scheduling. Provided office call back number if she would like to discuss. PRITI Dang, RN, BA Allergies As of Date: 02/08/2025 Noted Allergy Reaction AUGMENTIN (AMOXICILLIN-POT CLAVUL*04/25/2018 8 - GI Upset Comments: Nausea, vomiting BIAXIN (CLARITHROMYCIN) 03/27/2007 8 - GI Upset Comments: Metallic taste; can tolerate Zpak BYETTA (EXENATIDE) 07/25/2006 5 - Intolerance Comments: GI upset GLUCOPHAGE (METFORMIN) 07/25/2006 5 - Intolerance Comments: GI upset IODINE 01/16/2004 7 - Swelling Comments: myleogram dye LATEX 09/25/2014 16 - Unknown OMNICEF (CEFDINIR) 04/25/2018 8 - GI Upset Comments: Nausea, vomiting Date Reviewed: 02/01/2025 Reviewed by: Mandy Holloway MA - Fully Assessed Reason for Visit: Patient Question [1477] Primary Visit Diagnosis:Right leg numbness [R20.0] Order(s):EMG(NEURO/NI) [20100918] Order #: [id number]: 1 FUTURE Prescriptions as of 02/11/2025 - magnesium oxide (MAG-OX) 400 mg (241.3 mg magnesium) tablet Take 1 tablet by mouth once daily. - blood sugar diagnostic (BLOOD GLUCOSE TEST) test strip Test blood sugar(s) 2 times daily. Dx: Type 2 DM - Uncontrolled E11.65 Insulin: Yes - gabapentin (NEURONTIN) 300 mg capsule Take 300mg by mouth in the morning and afternoon. Take 1200mg at bedtime. - glimepiride (AMARYL) 2 mg tablet Take 1 tablet by mouth daily with breakfast. - atorvastatin (LIPITOR) 40 mg tablet Take 1 tablet by mouth once daily. - lisinopril (ZESTRIL) 20 mg tablet Take 1.5 tablets by mouth once daily. - omeprazole (PRILOSEC) 40 mg capsule Take 1 capsule by mouth two times a day. - traZODone (DESYREL) 100 mg tablet Take 2 tablets by mouth daily at bedtime. - sertraline (ZOLOFT) 50 mg tablet Take 1 tablet by mouth once daily. - fluticasone (FLONASE) 50 mcg/actuation nasal spray Use 2 Sprays in each nostril once daily. Rinse mouth after use. - triamcinolone acetonide (KENALOG) 0.1 % cream Apply 1 application to affected area three times a day. Apply sparingly to area for rash/itching. - gabapentin (NEURONTIN) 300 mg capsule Take 1 tablet by mouth in the morning and afternoon. Take 4 tablets at bedtime. - ondansetron orally disintegrating (ZOFRAN ODT) 4 mg disintegrating tablet Take 1 tablet by mouth every 8 hours as needed for nausea/vomiting. - Blood-Glucose Meter monitoring kit Test blood sugar(s) 2 times daily. Glucose Meter of Choice - Kit - Dx: Type 2 DM - Uncontrolled E11.65 - Insulin Syringe-Needle U-100 (BD INSULIN SYRINGE UF) 0.5 mL 30 gauge x 1/2" inject with insulin Four times a day with each meal and at bedtime as directed - ACCU-CHEK GUIDE GLUCOSE METER USE DIRECTED - Blood-Glucose Meter monitoring kit Glucose Meter of Choice - Kit - Dx: Type 2 DM - Uncontrolled E11.65 - insulin regular, human (NOVOLIN R REGULAR U-100 INSULN INJECTION) by INJECTION(UNSPECIFIED PARENTERAL ROUTES) route. 34 units in the Am - insulin NPH injection (HumuLIN N,NovoLIN N) 35 units in the Am 45 units in the PM - Lancets lancets Test blood sugar(s) BID times daily. Dx: Type 2 DM - Uncontrolled E (more content not included)... Normal [facility] CNOVon 02-01-2025 CNOV Office Visit ([facility] ) CARLOS COVARRUBIAS ([id number]) 1955 F Date Time Provider Department 02/01/25 9:30 AM ADELE HEBERT [facility] During your visit today, we recorded the following information about you: Pulse Blood pressure Weight 62/minute 135/72 98.8 kg Adele Hebert MD 02/02/2025 2:47 AM Signed NEW PATIENT EVALUATION Subjective HPI Carlos Covarrubias is a 69 year old right-handed female who presents for evaluation of RLE numbness. Dr. El Driver DO is the PCP. She is here with her daughter. She explains that one day while walking her right leg just started giving out. No pain with it just felt nothing. Little bit of weird feeling in the right arm. Seemed to lean towards to the right. Daughter felt like she was a little out of it in the car ride. Was kept overnight in the hospital. Was able to walk with a walker by the time she was at the hospital. Can't put flip flops Right foot perez, can't really feel the right foot, can't feel the gas pedal, can't put flip flops on. Has dealt with pinched nerves, severe pain and difficulty moving the right leg. Spine surgery is Dr. David Covarrubias at [facility]. L4-5 surgery x 2. Has had an EMG in the past. Has DM with neuropathy, currently well controlled. Medications: Current Outpatient Medications Medication Sig Dispense Refill magnesium oxide (MAG-OX) 400 mg (241.3 mg magnesium) tablet Take 1 tablet by mouth once daily. 30 tablet 1 blood sugar diagnostic (BLOOD GLUCOSE TEST) test strip Test blood sugar(s) 2 times daily. Dx: Type 2 DM - Uncontrolled E11.65 Insulin: Yes 50 strip 11 glimepiride (AMARYL) 2 mg tablet Take 1 tablet by mouth daily with breakfast. 90 tablet 3 atorvastatin (LIPITOR) 40 mg tablet Take 1 tablet by mouth once daily. 90 tablet 3 lisinopril (ZESTRIL) 20 mg tablet Take 1.5 tablets by mouth once daily. 135 tablet 3 omeprazole (PRILOSEC) 40 mg capsule Take 1 capsule by mouth two times a day. 180 capsule 2 traZODone (DESYREL) 100 mg tablet Take 2 tablets by mouth daily at bedtime. 180 tablet 3 sertraline (ZOLOFT) 50 mg tablet Take 1 tablet by mouth once daily. 90 tablet 3 fluticasone (FLONASE) 50 mcg/actuation nasal spray Use 2 Sprays in each nostril once daily. Rinse mouth after use. 1 Each 0 triamcinolone acetonide (KENALOG) 0.1 % cream Apply 1 application to affected area three times a day. Apply sparingly to area for rash/itching. 80 g 0 gabapentin (NEURONTIN) 300 mg capsule Take 1 tablet by mouth in the morning and afternoon. Take 4 tablets at bedtime. 24 capsule 0 ondansetron orally disintegrating (ZOFRAN ODT) 4 mg disintegrating tablet Take 1 tablet by mouth every 8 hours as needed for nausea/vomiting. 20 tablet 5 Blood-Glucose Meter monitoring kit Test blood sugar(s) 2 times daily. Glucose Meter of Choice - Kit - Dx: Type 2 DM - Uncontrolled E11.65 1 Each 0 Insulin Syringe-Needle U-100 (BD INSULIN SYRINGE UF) 0.5 mL 30 gauge x 1/2" inject with insulin Four times a day with each meal and at bedtime as directed 100 Each 0 ACCU-CHEK GUIDE GLUCOSE METER USE DIRECTED 1 Each 0 Blood-Glucose Meter monitoring kit Glucose Meter of Choice - Kit - Dx: Type 2 DM - Uncontrolled E11.65 1 Each 0 insulin regular, human (NOVOLIN R REGULAR U-100 INSULN INJECTION) by INJECTION(UNSPECIFIED PARENTERAL ROUTES) route. 34 units in the Am insulin NPH injection (HumuLIN N,NovoLIN N) 35 units in the Am 45 units in the PM Lancets lancets Test blood sugar(s) BID times daily. Dx: Type 2 DM - Uncontrolled E11.65 Insulin: Yes 100 Each 11 aspirin, enteric coated (ECOTRIN LOW STRENGTH) 81 mg EC tablet Take 1 tablet by mouth once daily. 0 gabapentin (NEURONTIN) 300 mg capsule Take 300mg by mouth in the morning and afternoon. Take 1200mg at bedtime. 540 capsule 3 No current facility-administered medications for this visit. ROS ROS: Her ROS was positive for that mentioned in the HPI. Otherwise a 10-point ROS was completed and was negative. ALLERGIES Allergen Reactions Augmentin [Amoxicil* GI Upset Nausea, vomiting Biaxin [Clarithromy* GI Upset Metallic taste; can tolerate Zpak Byetta [Exenatide] Intolerance GI upset Glucophage [Metform* Intolerance GI upset Iodine Swelling myleogram dye Latex Unknown Omnicef [Cefdinir] GI Upset Nausea, vomiting Past Medical History: PAST MEDICAL HISTORY Diagnosis Date ASCVD (arteriosclerotic cardiovascular disease) Atherosclerosis of left carotid artery 06/2013 Atherosclerosis of right carotid artery 06/2013 DDD (degenerative disc disease), cervical chronic neck pain Depressive disorder, not elsewhere classified Esophageal reflux 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 Normal [facility] CNOVon 01-24-2025 CNOV Office Visit ([facility] ) CARLOS COVARRUBIAS ([id number]) 1955 F Date Time Provider Department 01/24/25 11:00 AM CARSON MURRAY [facility] During your visit today, we recorded the following information about you: Pulse Blood pressure Weight 68/minute 129/72 98.9 kg Carson Murray APRN.CNP 01/24/2025 2:24 PM Signed . LUNG SCREENING VISIT PRIMARY CARE PHYSICIAN: El Driver DO PULMONARY PROVIDER: none Results will be communicated via letter or electronic record if applicable. Visit Delivery: In Person Patient Visit Type: New to Screening Current or Ex-smoker? Ex Exam Type: baseline LDCT Number of Pack Years: 104 Current smoker (=0) or Number of Years since Quit: 6 REQUESTER: The referring provider advised the patient to have screening. HISTORY OF PRESENT ILLNESS: Carlos Covarrubias is a 69 year old Former smoker who presents for lung screening. Has pain in Left side. Has had heart checked. Saw Cardiology in the past. Respiratory symptoms include: SOB: Yes Chest tightness: No Coughing: No Hemoptysis: No Wheezing: No Fever/Chills: No Recent Respiratory Infection: No Unintentional weight loss: No Last 6 Encounter Wt Readings: Date: Wt: 01/24/2025 98.9 kg (218 lb) 12/31/2024 98.9 kg (218 lb) 11/05/2024 99.8 kg (220 lb) 08/06/2024 101 kg (222 lb 10.6 oz) 07/31/2024 100.5 kg (221 lb 9 oz) 06/04/2024 100.4 kg (221 lb 5.5 oz) ECOG PERFORMANCE STATUS: 0- Fully active, able to carry on all pre-disease performance w/o restriction. Modified Medical Research [place] Dyspnea Scale (MMRC) I only get breathless with strenous exercise 0 PAST MEDICAL HISTORY Diagnosis Date ASCVD (arteriosclerotic cardiovascular disease) Atherosclerosis of left carotid artery 06/2013 Atherosclerosis of right carotid artery 06/2013 DDD (degenerative disc disease), cervical chronic neck pain Depressive disorder, not elsewhere classified Esophageal reflux GRANULOMA ANNULARE///ERYTHEMATOU S COND NEC 05/03/2007 History of echocardiogram 10/06/2020 @[facility] 60%, aortic sclerosis, mild aortic valve insufficiency History of exercise stress test 10/07/2020 @[facility] e, EF estimation greater than 70% History of nuclear stress test 10/07/2020 @[facility] by Dr. 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 08/07/2011 Seborrheic Keratosis 10/23/2010 Skin tag 08/07/2011 Tobacco abuse 07/13/2013 Trigger finger b/l hands, has had surgeries Type II or unspecified type diabetes mellitus without mention of complication, not stated as uncontrolled Unspecified hereditary and idiopathic peripheral neuropathy PAST SURGICAL HISTORY Procedure Laterality Date CHOLECYSTECTOMY HX 1994 Cholecystectomy, laparoscopic COLONOSCOPY 02/19/2015 ESOPHAGOGASTRODUODENOS COPY TRANSORAL DIAGNOSTIC 03/28/2013 EGD ESOPHAGOGASTRODUODENOS COPY TRANSORAL DIAGNOSTIC 02/23/2017 EGD PAST SURGICAL HISTORY OF 1974 LEANDRO PAST SURGICAL HISTORY OF 1980 Bilateral salpingoophorectomy PAST SURGICAL HISTORY OF 1986 Lumbar laminectomy PAST SURGICAL HISTORY OF 2002- multiple right partial clavicle resection and first rib resection- septic arthritis PAST SURGICAL HISTORY OF 07/2016 back surgery Lumbar/ thoracic FAMILY HISTORY Problem Relation Age of Onset Diabetes Mother Stroke Mother Coronary Artery Disease Father ASCVD in his 80's Coronary Artery Disease Sister Early 40's with finding of ASCVD Coronary Artery Disease Sister Coronary Artery Disease Brother 2 brothers diagnosed in their 60's Lung Cancer Brother One brother with brain cancer and another one with tumors "all over his body" Coronary Artery Disease Brother Lymphoma Brother Cancer Brother Possibly lung magnesium oxide (MAG-OX) 400 mg (241.3 mg magnesium) tablet Take 1 tablet by mouth once daily. blood sugar diagnostic (BLOOD GLUCOSE TEST) test strip Test blood sugar(s) 2 times daily. Dx: Type 2 DM - Uncontrolled E11.65 Insulin: Yes gabapentin (NEURONTIN) 300 mg capsule Take 300mg by mouth in the morning and afternoon. Take 1200mg at bedtime. glimepiride (AMARYL) 2 mg tablet Take 1 tablet by mouth daily with breakfast. atorvastatin (LIPITOR) 40 mg tablet Take 1 tablet by mouth once daily. lisinopril (ZESTRIL) 20 mg tablet (more content not included)... Normal [facility] Shilo 01-03-2025 MARIELA Telephone ([facility]) CARLOS COVARRUBIAS ([id number]) 1955 F Date Time Provider Department 01/03/25 CAROL SPEARS During your visit today, we recorded the following information about you: Eve Covarrubias MA 01/03/2025 10:28 AM Signed Sent request for recent MRI from [facility] medical records departmant at [phone], waiting for response Eve Covarrubias MA 01/03/2025 11:22 AM Addendum Received medical records and scanning them into chart. Look in scanned documents for report, patient [place] Allergies As of Date: 01/03/2025 Noted Allergy Reaction AUGMENTIN (AMOXICILLIN-POT CLAVUL*04/25/2018 8 - GI Upset Comments: Nausea, vomiting BIAXIN (CLARITHROMYCIN) 03/27/2007 8 - GI Upset Comments: Metallic taste; can tolerate Zpak BYETTA (EXENATIDE) 07/25/2006 5 - Intolerance Comments: GI upset GLUCOPHAGE (METFORMIN) 07/25/2006 5 - Intolerance Comments: GI upset IODINE 01/16/2004 7 - Swelling Comments: myleogram dye LATEX 09/25/2014 16 - Unknown OMNICEF (CEFDINIR) 04/25/2018 8 - GI Upset Comments: Nausea, vomiting Date Reviewed: 12/31/2024 Reviewed by: PAM FAITH - Fully Assessed Reason for Visit: Request Outside Medical Records [8061] Prescriptions as of 01/03/2025 - magnesium oxide (MAG-OX) 400 mg (241.3 mg magnesium) tablet Take 1 tablet by mouth once daily. - blood sugar diagnostic (BLOOD GLUCOSE TEST) test strip Test blood sugar(s) 2 times daily. Dx: Type 2 DM - Uncontrolled E11.65 Insulin: Yes - gabapentin (NEURONTIN) 300 mg capsule Take 300mg by mouth in the morning and afternoon. Take 1200mg at bedtime. - glimepiride (AMARYL) 2 mg tablet Take 1 tablet by mouth daily with breakfast. - atorvastatin (LIPITOR) 40 mg tablet Take 1 tablet by mouth once daily. - lisinopril (ZESTRIL) 20 mg tablet Take 1.5 tablets by mouth once daily. - omeprazole (PRILOSEC) 40 mg capsule Take 1 capsule by mouth two times a day. - traZODone (DESYREL) 100 mg tablet Take 2 tablets by mouth daily at bedtime. - sertraline (ZOLOFT) 50 mg tablet Take 1 tablet by mouth once daily. - fluticasone (FLONASE) 50 mcg/actuation nasal spray Use 2 Sprays in each nostril once daily. Rinse mouth after use. - triamcinolone acetonide (KENALOG) 0.1 % cream Apply 1 application to affected area three times a day. Apply sparingly to area for rash/itching. - gabapentin (NEURONTIN) 300 mg capsule Take 1 tablet by mouth in the morning and afternoon. Take 4 tablets at bedtime. - ondansetron orally disintegrating (ZOFRAN ODT) 4 mg disintegrating tablet Take 1 tablet by mouth every 8 hours as needed for nausea/vomiting. - Blood-Glucose Meter monitoring kit Test blood sugar(s) 2 times daily. Glucose Meter of Choice - Kit - Dx: Type 2 DM - Uncontrolled E11.65 - Insulin Syringe-Needle U-100 (BD INSULIN SYRINGE UF) 0.5 mL 30 gauge x 1/2" inject with insulin Four times a day with each meal and at bedtime as directed - ACCU-CHEK GUIDE GLUCOSE METER USE DIRECTED - Blood-Glucose Meter monitoring kit Glucose Meter of Choice - Kit - Dx: Type 2 DM - Uncontrolled E11.65 - insulin regular, human (NOVOLIN R REGULAR U-100 INSULN INJECTION) by INJECTION(UNSPECIFIED PARENTERAL ROUTES) route. 34 units in the Am - insulin NPH injection (HumuLIN N,NovoLIN N) 35 units in the Am 45 units in the PM - Lancets lancets Test blood sugar(s) BID times daily. Dx: Type 2 DM - Uncontrolled E11.65 Insulin: Yes - aspirin, enteric coated (ECOTRIN LOW STRENGTH) 81 mg EC tablet Take 1 tablet by mouth once daily. 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*05/03/2007 01/04/2017 Vitamin D deficiency [E55.9] 05/05/2007 Seborrheic Keratosis [L82.1] 10/23/2010 01/04/2017 Plantar wart of left foot: plantar 1st MTP [B07*08/07/2011 01/04/2017 Intradermal Nevus: Melanocytic vs Neuroid Nevus*08/07/2011 01/04/2017 R/O Neurofibroma: R mid lower buttock [D36.10] 08/07/2011 01/04/2017 R/O Nevus lipomatosus cutaneous superficialis: *08/07/2011 01/04/2017 Skin tag [L91.8] 08/07/2011 01/04/2017 Oral lesion: mid post hard palate [K13.70] 08/07/2011 01/04/2017 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 Normal [facility] Shilo 01-02-2025 ROYAN Telephone ([facility]) CARLOS COVARRUBIAS ([id number]) 1955 F Date Time Provider Department 01/02/25 CAROL SPEARS During your visit today, we recorded the following information about you: Eve Covarrubias MA 01/02/2025 8:12 AM Signed Check lobby no patient. Check in Allergies As of Date: 01/02/2025 Noted Allergy Reaction AUGMENTIN (AMOXICILLIN-POT CLAVUL*04/25/2018 8 - GI Upset Comments: Nausea, vomiting BIAXIN (CLARITHROMYCIN) 03/27/2007 8 - GI Upset Comments: Metallic taste; can tolerate Zpak BYETTA (EXENATIDE) 07/25/2006 5 - Intolerance Comments: GI upset GLUCOPHAGE (METFORMIN) 07/25/2006 5 - Intolerance Comments: GI upset IODINE 01/16/2004 7 - Swelling Comments: myleogram dye LATEX 09/25/2014 16 - Unknown OMNICEF (CEFDINIR) 04/25/2018 8 - GI Upset Comments: Nausea, vomiting Date Reviewed: 12/31/2024 Reviewed by: PAM FAITH - Fully Assessed Reason for Visit: Appointment [186] Prescriptions as of 01/07/2025 - magnesium oxide (MAG-OX) 400 mg (241.3 mg magnesium) tablet Take 1 tablet by mouth once daily. - blood sugar diagnostic (BLOOD GLUCOSE TEST) test strip Test blood sugar(s) 2 times daily. Dx: Type 2 DM - Uncontrolled E11.65 Insulin: Yes - gabapentin (NEURONTIN) 300 mg capsule Take 300mg by mouth in the morning and afternoon. Take 1200mg at bedtime. - glimepiride (AMARYL) 2 mg tablet Take 1 tablet by mouth daily with breakfast. - atorvastatin (LIPITOR) 40 mg tablet Take 1 tablet by mouth once daily. - lisinopril (ZESTRIL) 20 mg tablet Take 1.5 tablets by mouth once daily. - omeprazole (PRILOSEC) 40 mg capsule Take 1 capsule by mouth two times a day. - traZODone (DESYREL) 100 mg tablet Take 2 tablets by mouth daily at bedtime. - sertraline (ZOLOFT) 50 mg tablet Take 1 tablet by mouth once daily. - fluticasone (FLONASE) 50 mcg/actuation nasal spray Use 2 Sprays in each nostril once daily. Rinse mouth after use. - triamcinolone acetonide (KENALOG) 0.1 % cream Apply 1 application to affected area three times a day. Apply sparingly to area for rash/itching. - gabapentin (NEURONTIN) 300 mg capsule Take 1 tablet by mouth in the morning and afternoon. Take 4 tablets at bedtime. - ondansetron orally disintegrating (ZOFRAN ODT) 4 mg disintegrating tablet Take 1 tablet by mouth every 8 hours as needed for nausea/vomiting. - Blood-Glucose Meter monitoring kit Test blood sugar(s) 2 times daily. Glucose Meter of Choice - Kit - Dx: Type 2 DM - Uncontrolled E11.65 - Insulin Syringe-Needle U-100 (BD INSULIN SYRINGE UF) 0.5 mL 30 gauge x 1/2" inject with insulin Four times a day with each meal and at bedtime as directed - ACCU-CHEK GUIDE GLUCOSE METER USE DIRECTED - Blood-Glucose Meter monitoring kit Glucose Meter of Choice - Kit - Dx: Type 2 DM - Uncontrolled E11.65 - insulin regular, human (NOVOLIN R REGULAR U-100 INSULN INJECTION) by INJECTION(UNSPECIFIED PARENTERAL ROUTES) route. 34 units in the Am - insulin NPH injection (HumuLIN N,NovoLIN N) 35 units in the Am 45 units in the PM - Lancets lancets Test blood sugar(s) BID times daily. Dx: Type 2 DM - Uncontrolled E11.65 Insulin: Yes - aspirin, enteric coated (ECOTRIN LOW STRENGTH) 81 mg EC tablet Take 1 tablet by mouth once daily. 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*05/03/2007 01/04/2017 Vitamin D deficiency [E55.9] 05/05/2007 Seborrheic Keratosis [L82.1] 10/23/2010 01/04/2017 Plantar wart of left foot: plantar 1st MTP [B07*08/07/2011 01/04/2017 Intradermal Nevus: Melanocytic vs Neuroid Nevus*08/07/2011 01/04/2017 R/O Neurofibroma: R mid lower buttock [D36.10] 08/07/2011 01/04/2017 R/O Nevus lipomatosus cutaneous superficialis: *08/07/2011 01/04/2017 Skin tag [L91.8] 08/07/2011 01/04/2017 Oral lesion: mid post hard palate [K13.70] 08/07/2011 01/04/2017 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 [facility] ([id number]) 1955 F Date Time Provider Department 01/02/25 CAROL SPEARS [facility] During your visit today, we recorded the following information about you: Eve Hadley 01/02/2025 2:47 PM Signed Patient missed her office visit this morning, she was been rescheduled to the first available date and placed on a wait list. If an appointment opens up, call the patient's daughter, Ni, at [phone]. Patient was asked to bring in a copy of her recent spine MRI results. Per patient, [facility] stated the provider's office would have to reach out to request those records. Patient is requesting office to contact [facility] for results. Allergies As of Date: 01/02/2025 Noted Allergy Reaction AUGMENTIN (AMOXICILLIN-POT CLAVUL*04/25/2018 8 - GI Upset Comments: Nausea, vomiting BIAXIN (CLARITHROMYCIN) 03/27/2007 8 - GI Upset Comments: Metallic taste; can tolerate Zpak BYETTA (EXENATIDE) 07/25/2006 5 - Intolerance Comments: GI upset GLUCOPHAGE (METFORMIN) 07/25/2006 5 - Intolerance Comments: GI upset IODINE 01/16/2004 7 - Swelling Comments: myleogram dye LATEX 09/25/2014 16 - Unknown OMNICEF (CEFDINIR) 04/25/2018 8 - GI Upset Comments: Nausea, vomiting Date Reviewed: 12/31/2024 Reviewed by: PAM FAITH - Fully Assessed Reason for Visit: Patient Question [0813] Prescriptions as of 01/24/2025 - magnesium oxide (MAG-OX) 400 mg (241.3 mg magnesium) tablet Take 1 tablet by mouth once daily. - blood sugar diagnostic (BLOOD GLUCOSE TEST) test strip Test blood sugar(s) 2 times daily. Dx: Type 2 DM - Uncontrolled E11.65 Insulin: Yes - gabapentin (NEURONTIN) 300 mg capsule Take 300mg by mouth in the morning and afternoon. Take 1200mg at bedtime. - glimepiride (AMARYL) 2 mg tablet Take 1 tablet by mouth daily with breakfast. - atorvastatin (LIPITOR) 40 mg tablet Take 1 tablet by mouth once daily. - lisinopril (ZESTRIL) 20 mg tablet Take 1.5 tablets by mouth once daily. - omeprazole (PRILOSEC) 40 mg capsule Take 1 capsule by mouth two times a day. - traZODone (DESYREL) 100 mg tablet Take 2 tablets by mouth daily at bedtime. - sertraline (ZOLOFT) 50 mg tablet Take 1 tablet by mouth once daily. - fluticasone (FLONASE) 50 mcg/actuation nasal spray Use 2 Sprays in each nostril once daily. Rinse mouth after use. - triamcinolone acetonide (KENALOG) 0.1 % cream Apply 1 application to affected area three times a day. Apply sparingly to area for rash/itching. - gabapentin (NEURONTIN) 300 mg capsule Take 1 tablet by mouth in the morning and afternoon. Take 4 tablets at bedtime. - ondansetron orally disintegrating (ZOFRAN ODT) 4 mg disintegrating tablet Take 1 tablet by mouth every 8 hours as needed for nausea/vomiting. - Blood-Glucose Meter monitoring kit Test blood sugar(s) 2 times daily. Glucose Meter of Choice - Kit - Dx: Type 2 DM - Uncontrolled E11.65 - Insulin Syringe-Needle U-100 (BD INSULIN SYRINGE UF) 0.5 mL 30 gauge x 1/2" inject with insulin Four times a day with each meal and at bedtime as directed - ACCU-CHEK GUIDE GLUCOSE METER USE DIRECTED - Blood-Glucose Meter monitoring kit Glucose Meter of Choice - Kit - Dx: Type 2 DM - Uncontrolled E11.65 - insulin regular, human (NOVOLIN R REGULAR U-100 INSULN INJECTION) by INJECTION(UNSPECIFIED PARENTERAL ROUTES) route. 34 units in the Am - insulin NPH injection (HumuLIN N,NovoLIN N) 35 units in the Am 45 units in the PM - Lancets lancets Test blood sugar(s) BID times daily. Dx: Type 2 DM - Uncontrolled E11.65 Insulin: Yes - aspirin, enteric coated (ECOTRIN LOW STRENGTH) 81 mg EC tablet Take 1 tablet by mouth once daily. 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*05/03/2007 01/04/2017 Vitamin D deficiency [E55.9] 05/05/2007 Seborrheic Keratosis [L82.1] 10/23/2010 01/04/2017 Plantar wart of left foot: plantar 1st MTP [B07*08/07/2011 01/04/2017 Intradermal Nevus: Melanocytic vs Neuroid Nevus*08/07/2011 01/04/2017 R/O Neurofibroma: R mid lower buttock [D36.10] 08/07/2011 01/04/2017 R/O Nevus lipomatosus cutaneous superficialis: *08/07/2011 01/04/2017 Skin tag [L91.8] 08/07/2011 01/04/2017 Oral lesion: mid post hard palate [K13.70] 08/07/2011 01/04/2017 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 Normal [facility] CNOVon 12-31-2024 CNOV Office Visit (JASENPWS ) CARLOS COVARRUBIAS ([id number]) 1955 F Date Time Provider Department 12/31/24 10:40 AM RADHA TONY During your visit today, we recorded the following information about you: Pulse Respiration Blood pressure Weight 62/minute 12/minute 130/62 98.9 kg Radha Tony APRN.CNP 12/31/2024 11:07 AM Signed 12/31/2024 Patient presents with: Hospital F/U: [facility] 12/24/24-12/25/24 Recording using SpiderSuite software for draft documentation of the visit was discussed with the patient/authorized construction sales representative; all questions welcomed and answered. Patient/authorized construction sales representative agreed to proceed SUBJECTIVE: This is a 69 year old that is here today for Above Complaints. Right Leg Weakness and Numbness: - Onset while walking at home; leg "gave out" twice, followed by complete loss of function. - Associated with leaning to the right and emotional lability. - Initially improved, allowing ambulation with a walker, but worsened upon hospital admission. - Currently using a walker, previously belonged to her . - Denies known trauma. - Reports heaviness in the leg, limiting ambulation; requires a scooter for mobility in stores. - Unable to drive due to decreased sensation in the right foot. - Recent hospital stay at [facility] included three MRIs (brain and spine) and a CT angiography. - MRI of the brain was negative for CVA. - MRI of the lumbar spine revealed spinal stenosis and inflammation in the paraspinal muscles. - Partial tear of the right hamstring muscle noted. - No physical therapy recommended at this time. - Denies history of DVT or recent cancer treatment. - Reports new onset of calf pain and redness, with episodes of the calf feeling hard as a brick. - Denies prolonged bed rest outside of hospital stay. - History of neuropathy, with new onset of decreased sensation in the right foot since hospital admission. - Two previous back surgeries; reports chronic back pain, but recent pain is different in location and character. - History of cervical spine issues, previously recommended for surgery but declined; reports severe neck pain with movement. - Denies current back pain. Reports right calf has been hurting since discharge - Reports chronic urinary incontinence. 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 08/07/2011 Seborrheic Keratosis 10/23/2010 Skin tag 08/07/2011 Tobacco abuse 07/13/2013 Trigger finger b/l hands, has had surgeries Type II or unspecified type diabetes mellitus without mention of complication, not stated as uncontrolled Unspecified hereditary and idiopathic peripheral neuropathy ALLERGIES Augmentin [Amoxicillin-Pot Clavulanate], Biaxin [Clarithromycin], Byetta [Exenatide], Glucophage [Metformin], Iodine, Latex, and Omnicef [Cefdinir] MEDICATIONS Current Outpatient Medications Medication Sig blood sugar diagnostic (BLOOD GLUCOSE TEST) test strip Test blood sugar(s) 2 times daily. Dx: Type 2 DM - Uncontrolled E11.65 Insulin: Yes gabapentin (NEURONTIN) 300 mg capsule Take 300mg by mouth in the morning and afternoon. Take 1200mg at bedtime. glimepiride (AMARYL) 2 mg tablet Take 1 tablet by mouth daily with breakfast. atorvastatin (LIPITOR) 40 mg tablet Take 1 tablet by mouth once daily. lisinopril (ZESTRIL) 20 mg tablet Take 1.5 tablets by mouth once daily. omeprazole (PRILOSEC) 40 mg capsule Take 1 capsule by mouth two times a day. traZODone (DESYREL) 100 mg tablet Take 2 tablets by mouth daily at bedtime. sertraline (ZOLOFT) 50 mg tablet Take 1 tablet by mo (more content not included)... Normal [facility] DVT LOWER RTon 12-31-2024 US DVT LOWER RT * * *Final Report* * * DATE OF EXAM: Dec 31 2024 5:31PM JESSICA 1007 - US DVT LOWER RT / PROCEDURE REASON: M79.661-Right calf pain * * * * Physician Interpretation * * * * EXAMINATION: RIGHT LOWER EXTREMITY DEEP VENOUS ULTRASOUND WITH DOPPLER IMAGING CLINICAL HISTORY: Right calf pain TECHNIQUE: Grayscale with compression maneuvers, color Doppler and spectral Doppler imaging of the right proximal deep veins was performed. Grayscale with compression maneuvers of the peroneal and posterior tibial veins was performed. The right great and small saphenous veins were evaluated at their insertion to the deep system. The contralateral common femoral vein was imaged for comparison. Images were obtained and stored in a permanent archive. MQ: [id number] COMPARISON: None RESULT: RIGHT LOWER EXTREMITY PROXIMAL DEEP VEINS Distal External Iliac, Common Femoral and proximal Profunda Veins: Compression: Normal Doppler: Normal, spontaneous respirophasic flow. Normal response to augmentation. Femoral vein: Compression: Normal Doppler: Normal, spontaneous flow. Normal response to augmentation. Popliteal vein: Compression: Normal Doppler: Normal, spontaneous flow. Normal response to augmentation. CALF DEEP VEINS Peroneal veins: Normal compression. Posterior tibial veins: Normal compression. Gastrocnemius and Soleal veins: Not imaged. SUPERFICIAL VEINS Great saphenous: Patent and compressible at insertion into common femoral vein; not otherwise assessed. Small Saphenous: Patent and compressible in the proximal calf, not otherwise assessed. LEFT LOWER EXTREMITY (FOR COMPARISON) Common Femoral Vein: Compression: Normal Doppler: Normal, spontaneous respirophasic flow. Normal response to augmentation. IMPRESSION: Negative study for proximal DVT in the right lower extremity. Negative study for calf DVT in the right lower extremity. Negative study for superficial thrombophlebitis in the imaged segments of the right lower extremity. [employer]: RIAN Transcribe Date/Time: Jan 01 2025 8:25A Dictated by : AHMET ISAAC MD This examination was interpreted and the report reviewed and electronically signed by: AHMET ISAAC MD on Jan 01 2025 8:25AM EST [id number] [facility] .Auto Diffon 12-25-2024 Basophil, Absolute 0.0 10 3/mcL Normal 0.0-0.3 [facility] Comment on above: Performed By: #### A TATE, CBC, ADIFF, GFR, CMP, MG ####[address] [address] Basophils/100 WBC (Bld) 0.7 % Normal 0.0-2.5 [facility] Comment on above: Performed By: #### A TATE, CBC, ADIFF, GFR, CMP, MG ####[address] [address] Eosinophil, Absolute 0.1 10 3/mcL Normal 0.0-0.7 [facility] Comment on above: Performed By: #### A TATE, CBC, ADIFF, GFR, CMP, MG ####[address] [address] Eosinophils/100 WBC (Bld) 1.8 % Normal 0.0-6.0 [facility] Comment on above: Performed By: #### A TATE, CBC, ADIFF, GFR, CMP, MG ####[address] [address] Lymphocyte, Absolute 2.5 10 3/mcL Normal 0.9-4.3 [facility] Comment on above: Performed By: #### A TATE, CBC, ADIFF, GFR, CMP, MG ####[address] [address] Lymphocytes/100 WBC (Bld) 44.0 % High 20.0-40.0 [facility] Comment on above: Performed By: #### A TATE, CBC, ADIFF, GFR, CMP, MG ####[address] [address] Monocyte, Absolute 0.4 10 3/mcL Normal 0.1-1.4 [facility] Comment on above: Performed By: #### A TATE, CBC, ADIFF, GFR, CMP, MG ####[address] [address] Monocytes/100 WBC (Bld) 7.9 % Normal 2.0-13.0 [facility] Comment on above: Performed By: #### A TATE, CBC, ADIFF, GFR, CMP, MG ####[address] [place], [place] [address] Neutrophils/100 WBC (Bld) 45.6 % Low 50.0-75.0 [facility] Comment on above: Performed By: #### A TATE, CBC, ADIFF, GFR, CMP, MG ####[facility] [place], [place] [address] .GFRon 12-25-2024 Estimated Glomerular Filtration Rate 79 ml/min/1.73sqm Normal [facility] Comment on above: Result Comment: Stages of Chronic Kidney Disease (CKD) Stage Description eGFR(ml/min/1.73 sq.m.) CKD 1 Normal kidney function or >=90 normal kindney function with possible kidney damage (ex. Proteinuria) CKD 2 Kidney damage with mild loss 60-89 of kidney function CKD 3a Mild to moderate loss of kidney 45-59 function CKD 3b Moderate to severe loss of 30-44 of kindey function CKD 4 Severe loss of kidney function 15-29 CKD 5 Kidney failure <15 Note: (go live 2024) the eGFR calculation was updated to the 2020 CKD-EPI creatinine equation without a race factor to calculate the eGFR results. Performed By: #### A TATE, CBC, ADIFF, GFR, CMP, MG ####[address] [place], [place] [address] .NEUABSon 12-25-2024 Neutrophil, Absolute 2.6 10 3/mcL Normal 2.3-8.1 [facility] Comment on above: Performed By: #### A TATE, CBC, ADIFF, GFR, CMP, MG ####[facility] [place], [place] [address] CBCon 12-25-2024 Erythrocyte distribution width (RBC) [Ratio] 13.7 % Normal 11.5-15.5 [facility] Comment on above: Performed By: #### A TATE, CBC, ADIFF, GFR, CMP, MG ####[facility] [place], [place] [address] Hematocrit (Bld) [Volume fraction] 34.6 % Normal 34.0-46.0 [facility] Comment on above: Performed By: #### A TATE, CBC, ADIFF, GFR, CMP, MG ####[place] [id number] Hgb 12.1 G/dL Normal 12.0-16.0 [facility] Comment on above: Performed By: #### A TATE, CBC, ADIFF, GFR, CMP, MG ####[place] [address] MCH (RBC) [Entitic mass] 29.4 pg Normal 27.0-33.0 [facility] Comment on above: Performed By: #### A TATE, CBC, ADIFF, GFR, CMP, MG ####[place] [address] MCHC 34.9 G/dL Normal 32.0-36.0 [facility] Comment on above: Performed By: #### A TATE, CBC, ADIFF, GFR, CMP, MG ####[place] [id number] MCV (RBC) [Entitic vol] 84.3 fL Normal 80.0-99.0 [facility] Comment on above: Performed By: #### A TATE, CBC, ADIFF, GFR, CMP, MG ####[place] [id number] Platelet 183 10 3/mcL Normal 150-450 [facility] Comment on above: Performed By: #### A TATE, CBC, ADIFF, GFR, CMP, MG ####[place] [id number] Platelet mean volume (Bld) [Entitic vol] 7.6 fL Normal 6.6-10.5 [facility] Comment on above: Performed By: #### A TATE, CBC, ADIFF, GFR, CMP, MG ####[place] [id number] RBC 4.10 10 6/mcL Normal 4.10-5.30 [facility] Comment on above: Performed By: #### A TATE, CBC, ADIFF, GFR, CMP, MG ####[address] [place], [place] [address] WBC 5.7 10 3/mcL Normal 4.5-10.8 [facility] Comment on above: Performed By: #### A TATE, CBC, ADIFF, GFR, CMP, MG ####[address] [place], [place] [address] CMPon 12-25-2024 Albumin Level 2.9 G/dL Low 3.4-4.8 [facility] Comment on above: Performed By: #### A TATE, CBC, ADIFF, GFR, CMP, MG ####[address] [place] [id number] Albumin/Globulin [Mass ratio] 0.9 {ratio} Low 1.1-2.5 [facility] Comment on above: Performed By: #### A TATE, CBC, ADIFF, GFR, CMP, MG ####[place] [id number] ALP [Catalytic activity/Vol] 94 U/L Normal 40-135 [facility] Comment on above: Performed By: #### A TATE, CBC, ADIFF, GFR, CMP, MG ####[address] [address] ALT [Catalytic activity/Vol] 25 U/L Normal 14-59 [facility] Comment on above: Performed By: #### A TATE, CBC, ADIFF, GFR, CMP, MG ####[address] [address] AST [Catalytic activity/Vol] 14 U/L Normal 10-40 [facility] Comment on above: Performed By: #### A TATE, CBC, ADIFF, GFR, CMP, MG ####[address] [place] [id number] Bili Total 0.3 mg/dL Normal 0.2-1.0 [facility] Comment on above: Result Comment: Use of this assay is not recommended for patients undergoing treatment with eltrombopag due to the potential for falsely elevated results. Performed By: #### A TATE, CBC, ADIFF, GFR, CMP, MG ####[place] [address] BUN/Creatinine Ratio 18 ratio Normal 7-27 [facility] Comment on above: Performed By: #### A TATE, CBC, ADIFF, GFR, CMP, MG ####[place] [address] Calcium [Mass/Vol] 8.6 mg/dL Normal 8.4-10.[address] [facility] Comment on above: Performed By: #### A TATE, CBC, ADIFF, GFR, CMP, MG ####[place] [address] Chloride [Moles/Vol] 109 mmol/L High 98-107 [facility] Comment on above: Performed By: #### A TATE, CBC, ADIFF, GFR, CMP, MG ####[place] [address] CO2 [Moles/Vol] 30 mmol/L Normal 23-31 [facility] Comment on above: Performed By: #### A TATE, CBC, ADIFF, GFR, CMP, MG ####[place] [address] Creatinine [Mass/Vol] 0.80 mg/dL Normal 0.51-0.95 [facility] Comment on above: Performed By: #### A TATE, CBC, ADIFF, GFR, CMP, MG ####[place] [address] Electrolyte Balance 6.0 mEq/L Normal 4.0-15.0 [facility] Comment on above: Performed By: #### A TATE, CBC, ADIFF, GFR, CMP, MG ####[place] [address] Globulin 3.4 G/dL Normal 2.7-4.4 [facility] Comment on above: Performed By: #### A TATE, CBC, ADIFF, GFR, CMP, MG ####[place] [id number] Glucose [Mass/Vol] 201 mg/dL High 83-[address] [facility] Comment on above: Performed By: #### A TATE, CBC, ADIFF, GFR, CMP, MG ####[address] [place], [place] [address] Potassium [Moles/Vol] 4.5 mmol/L Normal 3.5-5.1 [facility] Comment on above: Performed By: #### A TATE, CBC, ADIFF, GFR, CMP, MG ####[address] [place], [place] [address] Sodium [Moles/Vol] 145 mmol/L Normal 136-[address] [facility] Comment on above: Performed By: #### A TATE, CBC, ADIFF, GFR, CMP, MG ####[address] [place], [place] [address] Total Protein 6.3 G/dL Low 6.4-8.2 [facility] Comment on above: Performed By: #### A TATE, CBC, ADIFF, GFR, CMP, MG ####[address] [address] Urea nitrogen [Mass/Vol] 14 mg/dL Normal 7-18 [facility] Comment on above: Performed By: #### A TATE, CBC, ADIFF, GFR, CMP, MG ####[address] [place], [place] [address] LABORATORYOrdered By: Ant Peña on 12-25-2024 Blood Glucose Testing Reason Routine (12/25/24 12:32 PM) [facility] Work Phone: Glucose [Mass/Vol] 173 mg/dL High 82 - 115 mg/dL [facility] Work Phone: Blood Glucose Testing Reason Routine (12/25/24 9:40 AM) [facility] Work Phone: Glucose [Mass/Vol] 168 mg/dL High 82 - 115 mg/dL [facility] Work Phone: LABORATORYOrdered By: David Faustin on 12-25-2024 Glucose [Mass/Vol] 173 mg/dL High 82 - 115 mg/dL [facility] Work Phone: Blood Glucose Testing Reason Routine (12/25/24 7:53 AM) [facility] Work Phone: LABORATORYOrdered By: SYSTEM SYSTEM on 12-25-2024 Albumin BCP dye [Mass/Vol] 2.9 G/dL Low 3.4 - 4.8 G/dL AO ADM SS Albumin/Globulin [Mass ratio] 0.9 {ratio} Low 1.1 - 2.5 ratio AO ADM SS ALP [Catalytic activity/Vol] 94 U/L Normal 40 - 135 U/L AO ADM SS ALT With P-5'-P [Catalytic activity/Vol] 25 U/L Normal 14 - 59 U/L AO ADM SS AST With P-5'-P [Catalytic activity/Vol] 14 U/L Normal 10 - 40 U/L AO ADM SS Basophils (Bld) [#/Vol] 0.0 103/mcL Normal 0.0 - 0.3 10^3/mcL AO Workflow SS Basophils/100 WBC (Bld) 0.7 % Normal 0.0 - 2.5 % AO Workflow SS Bilirubin [Mass/Vol] 0.3 mg/dL Normal 0.2 - 1 .0 mg/dL AO ADM SS Comment on above: Interpretive Data: U se of this assay is not recommended for patients undergoing treatment with eltrombopag due to the potential for falsely elevated results. Calcium [Mass/Vol] 8.6 mg/dL Normal 8.4 - 10. 2 mg/dL AO ADM SS Chloride [Moles/Vol] 109 mmol/L High 98 - 10 7 mmol/L AO ADM SS CO2 [Moles/Vol] 30 mmol/L Normal 23 - 31 mmol/L AO ADM SS Creatinine [Mass/Vol] 0.80 mg/dL Normal 0.51 - 0.95 mg/dL AO ADM SS Electrolyte Balance 6.0 mEq/L Normal 4.0 - 15 .0 mEq/L AO ADM SS Eosinophil, Absolute 0.1 103/mcL Normal 0.0 - 0 .7 10^3/mcL AO Workflow SS Eosinophils/100 WBC (Bld) 1.8 % Normal 0.0 - 6.0 % AO Workflow SS Erythrocyte distribution width (RBC) [Ratio] 13.7 % Normal 11.5 - 15.5 % AO Workflow SS Estimated Glomerular Filtration Rate 79 ml/min/1.73sqm Invalid Interpretation Code AO Chemistry S Comment on above: Interpretive Data: Stages of Chronic Kidney Disease (CKD) Stage Description eGFR(ml/min/1.73 sq.m.) CKD 1 Normal kidney function or >=90 normal kindney function with possible kidney damage (ex. Proteinuria) CKD 2 Kidney damage with mild loss 60-89 of kidney function CKD 3a Mild to moderate loss of kidney 45-59 function CKD 3b Moderate to severe loss of 30-44 of kindey function CKD 4 Severe loss of kidney function 15-29 CKD 5 Kidney failure <15 Note: (go live 2024) the eGFR calculation was updated to the 2020 CKD-EPI creatinine equation without a race factor to calculate the eGFR results. Globulin 3.4 G/dL Normal 2.7 - 4.4 G/dL AO ADM SS Glucose [Mass/Vol] 201 mg/dL High 83 - 110 mg/dL AO ADM SS Hematocrit (Bld) [Volume fraction] 34.6 % Normal 34.0 - 46.0 % AO Workflow SS Hemoglobin (Bld) [Mass/Vol] 12.1 G/dL Normal 12.0 - 16.0 G/dL AO Workflow SS Lymphocytes (Bld) [#/Vol] 2.5 103/mcL Normal 0.9 - 4.3 10^3/mcL AO Workflow SS Lymphocytes/100 WBC (Bld) 44.0 % High 20.0 - 40.0 % AO Workflow SS Magnesium [Mass/Vol] 1.6 mg/dL Low 1.8 - 2 .4 mg/dL AO ADM SS MCH (RBC) [Entitic mass] 29.4 pg Normal 27.0 - 33.0 pg AO Workflow SS MCHC 34.9 G/dL Normal 32.0 - 36.0 G/dL AO Workflow SS MCV (RBC) [Entitic vol] 84.3 fL Normal 80.0 - 99.0 fL AO Workflow SS Monocytes (Bld) [#/Vol] 0.4 103/mcL Normal 0.1 - 1.4 10^3/mcL AO Workflow SS Monocytes/100 WBC (Bld) 7.9 % Normal 2.0 - 13.0 % AO Workflow SS Neutrophils (Bld) [#/Vol] 2.6 103/mcL Normal 2.3 - 8.1 10^3/mcL AO Workflow SS Neutrophils/100 WBC (Bld) 45.6 % Low 50.0 - 75.0 % AO Workflow SS Platelet mean volume (Bld) [Entitic vol] 7.6 fL Normal 6.6 - 10.5 fL AO Workflow SS Platelets (Bld) [#/Vol] 183 103/mcL Normal 150 - 450 10^3/mcL AO Workflow SS Potassium [Moles/Vol] 4.5 mmol/L Normal 3.5 - 5.1 mmol/L AO ADM SS Protein [Mass/Vol] 6.3 G/dL Low 6.4 - 8.2 G/dL AO ADM SS RBC (Bld) [#/Vol] 4.10 106/mcL Normal 4.10 - 5.3 0 10^6/mcL AO Workflow SS Sodium [Moles/Vol] 145 mmol/L Normal 136 - 145 mmol/L AO ADM SS Urea nitrogen [Mass/Vol] 14 mg/dL Normal 7 - 18 mg/dL AO ADM SS Urea nitrogen/Creatinine [Mass ratio] 18 ratio Normal 7 - 27 ratio AO ADM SS WBC (Bld) [#/Vol] 5.7 103/mcL Normal 4.5 - 10.8 10^3/mcL AO Workflow SS MGon 12-25-2024 Magnesium [Mass/Vol] 1.6 mg/dL Low 1.8-2.4 [facility] Comment on above: Performed By: #### A TATE, CBC, ADIFF, GFR, CMP, MG ####[address] [address] MRI BRAIN W/O CONTRASTon MRI BRAIN W/O CONTRAST ORIGINAL EXAMINATION: MRI OF THE BRAIN WITHOUT CONTRAST 12/24/2024 5:26 pm TECHNIQUE: Multiplanar multisequence MRI of the brain was performed without the administration of intravenous contrast. COMPARISON: None. HISTORY: ORDERING SYSTEM PROVIDED HISTORY: Reason for Exam: Transient ischemic attack (TIA) FINDINGS: INTRACRANIAL STRUCTURES/VENTRICLES: There is no acute infarct. No mass effect or midline shift. No evidence of an acute intracranial hemorrhage. The ventricles and sulci are normal in size and configuration. The sellar/suprasellar regions appear unremarkable. The normal signal voids within the major intracranial vessels appear maintained. Few punctate foci of periventricular white matter T2/FLAIR hyperintensity, which though nonspecific likely relates to chronic small vessel disease. ORBITS: Bilateral lens implants. The visualized portion of the orbits demonstrate no acute abnormality. SINUSES: The visualized paranasal sinuses and mastoid air cells demonstrate no acute abnormality. BONES/SOFT TISSUES: The bone marrow signal intensity appears normal. The soft tissues demonstrate no acute abnormality. IMPRESSION: No evidence of acute infarct. Preliminary Report was Dictated by a Resident Interpreted by: Shashi Smiley MD Preliminary Report By: Ted Foy Electronically signed By Shashi Smiley MD Dictated Date: 12/25/2024 3:57:17 AM Prelim Date: 12/25/2024 4:02:53 AM Sign Date: 12/25/2024 4:40:46 AM Ordering Provider: RONNIE BAL Interpreted by: Shashi Smiley MD Preliminary Report By: Ted Foy Electronically signed By Shashi Smiley MD Dictated Date: 12/25/2024 3:57:17 AM Prelim Date: 12/25/2024 4:02:53 AM Sign Date: 12/25/2024 4:40:46 AM Ordering Provider: RONNIE BAL Normal [facility] MRI SPINE LUMBAR W/O CONTRAS Ton 12-25-2024 MRI SPINE LUMBAR W/O CONTRAST ORIGINAL HISTORY: Radiculopathy COMPARISON: No TECHNIQUE: 1. Sagittal T1-weighted images. 2. Sagittal T2-weighted images with and without fat saturation. 3. Axial T1-weighted images. 4. Axial T2-weighted images. FINDINGS: The study is degraded by motion. There are 5 lumbar type vertebral bodies for the purpose of this dictation. There is mild grade 1 retrolisthesis at L4-L5. There are right hemilaminectomies at L3-L4 and L4-L5. The remaining vertebral bodies are intact. There is disc desiccation and disc space narrowing, most prominently at L4-L5. The tip of the conus is at the L1 level. There is no abnormal signal within the visualized spinal cord. Specific findings by level: L1-L2: There is a moderate central extrusion. There is mild facet and ligamentum flavum hypertrophy. There is mild stenosis. L2-L3: There is a mild posterior disc bulge. There is mild facet hypertrophy. There is mild to moderate ligamentum flavum hypertrophy. There is mild stenosis. L3-L4: There is a qrto-ul-ncxuczas posterior disc bulge. There is mild facet hypertrophy. There is mild to moderate right ligamentum flavum hypertrophy. There is mild stenosis. L4-L5: There is mild spondylosis. There is a superimposed right subarticular disc osteophyte complex. There is mild stenosis. L5-S1: There is moderate spondylosis. There is a ebiy-qg-ehhforuk superimposed right subarticular/neural foraminal extrusion, mildly displacing the descending right S1 nerve root. There is moderate right neural foraminal narrowing. IMPRESSION: Limited by motion. Multilevel degenerative changes with superimposed payton laminotomies at L3-L4 and L4-L5. Mild stenosis at L1-L2 through L4-L5. Right subarticular/neural foraminal extrusion at L5-S1, displacing the descending right S1 nerve root. There is right neural foraminal narrowing at this level. Interpreted by: Ahmet Guerra MD Preliminary Report By: Ahmet Guerra MD Electronically signed By Ahmet Guerra MD Dictated Date: 12/25/2024 8:33:05 AM Prelim Date: 12/25/2024 8:38:53 AM Sign Date: 12/25/2024 8:38:53 AM Ordering Provider: RONNIE BAL Interpreted by: Ahmet Guerra MD Preliminary Report By: Ahmet Guerra MD Electronically signed By Ahmet Guerra MD Dictated Date: 12/25/2024 8:33:05 AM Prelim Date: 12/25/2024 8:38:53 AM Sign Date: 12/25/2024 8:38:53 AM Ordering Provider: RONNIE BAL [facility] MRI SPINE SACRUM W/O CONTRAS Ton 12-25-2024 MRI SPINE SACRUM W/O CONTRAST ORIGINAL EXAMINATION: MRI OF THE SACRUM/COCCYX WITHOUT IV CONTRAST, 12/24/2024 6:15 pm TECHNIQUE: Multiplanar multisequence MRI of the sacrum/coccyx was performed without the administration of intravenous contrast. COMPARISON: None HISTORY: ORDERING SYSTEM PROVIDED HISTORY: Reason for Exam: paresthesia Left leg weakness FINDINGS: There is no evidence of acute fracture, osteonecrosis or transient osteoporosis. No suspicious marrow lesion is noted. For evaluation of the lower lumbar spine please refer to dedicated same day MR lumbar spine report. The sacroiliac joints appear intact. The pubic symphysis appears intact. The proximal attachments of the rectus femoris, iliotibial bands and tensor fascia latae are intact. Moderate right more than left hamstring tendinosis with partial tearing. Mild bilateral insertional gluteus minimus and medius tendinosis right greater than left.. The iliopsoas tendon insertions are preserved. There is no iliopsoas or greater trochanteric bursitis. Please note that study was not protocoled for assessment of internal derangement of the hips. There is no drainable joint effusion, synovitis or appreciable displaced intraarticular body. The imaged portions of the femoral, sciatic and obturator neurovascular bundles appear intact. There is nonspecific intramuscular edema/fluid within the right paraspinal muscles at the lumbosacral level and along the muscle fascia (series 4, image 46), possible small fluid collection measuring 1.7 x 1.4 cm versus more conspicuous intramuscular edema on series 4, image 46 with T2 hyperintensity involving the synovium of the right SI joint, cannot exclude a trivial amount of joint fluid. There is no significant marrow edema in the adjacent sacrum or iliac bone There is no pelvic lymphadenopathy. Very trivial pelvic free fluid. Colonic diverticulosis. Indeterminate cystic 8 mm lesion inferior to the left femoroacetabular joint on series 4, image 10 IMPRESSION: Nonspecific intramuscular edema and fluid within the lower lumbosacral right paraspinal muscles with perifascial edema and localized inflammatory changes. There is a questionable small well-defined intramuscular fluid collection for which pyomyositis/small abscess cannot be excluded. Although these changes may be denervation related or secondary to anasarca/localized edema, infection cannot be excluded recommend clinical correlation and contrast enhanced imaging as further warranted. There is T2 hyperintensity of the upper portion of the right SI joint which appears contiguous with the adjacent muscular changes, although this may be inflammatory given lack of significant surrounding marrow changes infection/septic arthritis cannot be excluded. Hamstring tendinosis with partial tearing on the right and mild gluteus tendinosis right greater than left. Trivial pelvic free fluid. Colonic diverticulosis. Additional incidental findings as above. Interpreted by: Ramila Jordan Preliminary Report By: Ramila Jordan Electronically signed By Ramila Jordan Dictated Date: 12/25/2024 12:23:39 PM Prelim Date: 12/25/2024 12:39:56 PM Sign Date: 12/25/2024 12:39:56 PM Ordering Provider: RONNIE BAL Interpreted by: Ramila Jordan Preliminary Report By: Ramila Jordan Electronically signed By Ramila Jordan Dictated Date: 12/25/2024 12:23:39 PM Prelim Date: 12/25/2024 12:39:56 PM Sign Date: 12/25/2024 12:39:56 PM Ordering Provider: RONNIE BAL Normal [facility] .Auto Diffon 12-24-2024 Basophil, Absolute 0.1 10 3/mcL Normal 0.0-0.3 [facility] Comment on above: Performed By: #### T ROPHS, CBC, BMP, LAC, PRO, APTT, ANEU, GFR, MDW, ADIFF ####[facility] [place], [place] [address] Basophils/100 WBC (Bld) 1.1 % Normal 0.0-2.5 [facility] Comment on above: Performed By: #### T MACEYHS, CBC, BMP, LAC, PRO, APTT, ANEU, GFR, MDW, ADIFF ####[facility] [address] [place], [place] [address] Eosinophil, Absolute 0.1 10 3/mcL Normal 0.0-0.7 [facility] Comment on above: Performed By: #### T ROPHS, CBC, BMP, LAC, PRO, APTT, ANEU, GFR, MDW, ADIFF ####[facility] [place], [place] [address] Eosinophils/100 WBC (Bld) 0.9 % Normal 0.0-6.0 [facility] Comment on above: Performed By: #### T ROPHS, CBC, BMP, LAC, PRO, APTT, ANEU, GFR, MDW, ADIFF ####[facility] [place], [place] [address] Lymphocyte, Absolute 2.2 10 3/mcL Normal 0.9-4.3 [facility] Comment on above: Performed By: #### T ROPHS, CBC, BMP, LAC, PRO, APTT, ANEU, GFR, MDW, ADIFF ####[address] [place], [place] [address] Lymphocytes/100 WBC (Bld) 33.7 % Normal 20.0-40.0 [facility] Comment on above: Performed By: #### T ROPHS, CBC, BMP, LAC, PRO, APTT, ANEU, GFR, MDW, ADIFF ####[facility] [place], [place] [address] Monocyte, Absolute 0.5 10 3/mcL Normal 0.1-1.4 [facility] Comment on above: Performed By: #### T ROPHS, CBC, BMP, LAC, PRO, APTT, ANEU, GFR, MDW, ADIFF ####[address] [place], [place] [address] Monocytes/100 WBC (Bld) 7.8 % Normal 2.0-13.0 [facility] Comment on above: Performed By: #### T ROPHS, CBC, BMP, LAC, PRO, APTT, ANEU, GFR, MDW, ADIFF ####[address] [place], [place] [address] Neutrophils/100 WBC (Bld) 56.5 % Normal 50.0-75.0 [facility] Comment on above: Performed By: #### T ROPHS, CBC, BMP, LAC, PRO, APTT, ANEU, GFR, MDW, ADIFF ####[facility] [place], [place] [address] .GFRon 12-24-2024 Estimated Glomerular Filtration Rate 65 ml/min/1.73sqm Normal [facility] Comment on above: Result Comment: Stages of Chronic Kidney Disease (CKD) Stage Description eGFR(ml/min/1.73 sq.m.) CKD 1 Normal kidney function or >=90 normal kindney function with possible kidney damage (ex. Proteinuria) CKD 2 Kidney damage with mild loss 60-89 of kidney function CKD 3a Mild to moderate loss of kidney 45-59 function CKD 3b Moderate to severe loss of 30-44 of kindey function CKD 4 Severe loss of kidney function 15-29 CKD 5 Kidney failure <15 Note: (go live 2024) the eGFR calculation was updated to the 2020 CKD-EPI creatinine equation without a race factor to calculate the eGFR results. Performed By: #### T ROPHS, CBC, BMP, LAC, PRO, APTT, ANEU, GFR, MDW, ADIFF ####[address] [place], [place] [address] .MDWon 12-24-2024 Monocyte Distribution Width 18.27 Normal 0.00-20.00 [facility] Comment on above: Result Comment: For ED adult patients suspected of sepsis, MDW<=20.0 does not rule out sepsis or risk of sepsis Performed By: #### T MACEYHS, CBC, BMP, LAC, PRO, APTT, ANEU, GFR, MDW, ADIFF ####[facility] [place], [place] [address] .NEUABSon 12-24-2024 Neutrophil, Absolute 3.6 10 3/mcL Normal 2.3-8.1 [facility] Comment on above: Performed By: #### T EDIL, CBC, BMP, LAC, PRO, APTT, ANEU, GFR, MDW, ADIFF ####[facility] [address] [place], [place] [address] A1Con 12-24-2024 Glucose [Mass/Vol] 151 mg/dL Normal [facility] Comment on above: Result Comment: Krystyna mated Average Glucose calculated by equation ((28.7xA1C)-46.7) Estimated average glucose (eAG) is a calculated value from Hemoglobin A1C and is construction sales representative of the average blood glucose level in the last 2-3 month period. Normal range: less than 114 mg/dL Performed By: #### T SH, LIPID, FT4, A1C ####[address] [address] [place], [place] [address] HbA1c (Bld) [Mass fraction] 6.9 % High 4.3-6.4 [facility] Comment on above: Performed By: #### T SH, LIPID, FT4, A1C ####[facility] [place], [place] [address] APTTon 12-24-2024 aPTT Coag (Bld) [Time] 30.0 s Normal 25.0-35.0 [facility] Comment on above: Result Comment: For Heparin anticoagulation therapy, the recommended therapeutic range is: 45.4-75.9 seconds. Patients on heparin therapy may have an extreme result. Performed By: #### T ROPHS, CBC, BMP, LAC, PRO, APTT, ANEU, GFR, MDW, ADIFF ####[facility] [place], [place] [address] BMPon 12-24-2024 BUN/Creatinine Ratio 20 ratio Normal 7-27 [facility] Comment on above: Performed By: #### T EDIL, CBC, BMP, LAC, PRO, APTT, ANEU, GFR, MDW, ADIFF ####[address] [place], [place] [address] Calcium [Mass/Vol] 8.3 mg/dL Low 8.4-10.[address] [facility] Comment on above: Performed By: #### T EDIL, CBC, BMP, LAC, PRO, APTT, ANEU, GFR, MDW, ADIFF ####[address] [place], [place] [address] Chloride [Moles/Vol] 107 mmol/L Normal 98-107 [facility] Comment on above: Performed By: #### T EDIL, CBC, BMP, LAC, PRO, APTT, ANEU, GFR, MDW, ADIFF ####[address] [place], [place] [address] CO2 [Moles/Vol] 30 mmol/L Normal 23-31 [facility] Comment on above: Performed By: #### T MACEYHS, CBC, BMP, LAC, PRO, APTT, ANEU, GFR, MDW, ADIFF ####[address] [place], [place] [address] Creatinine [Mass/Vol] 0.94 mg/dL Normal 0.51-0.95 [facility] Comment on above: Performed By: #### T ROPHS, CBC, BMP, LAC, PRO, APTT, ANEU, GFR, MDW, ADIFF ####[facility] [place], [place] [address] Electrolyte Balance 5.0 mEq/L Normal 4.0-15.0 [facility] Comment on above: Performed By: #### T ROPHS, CBC, BMP, LAC, PRO, APTT, ANEU, GFR, MDW, ADIFF ####[address] [place], [place] [address] Glucose [Mass/Vol] 124 mg/dL High 83-[address] [facility] Comment on above: Performed By: #### T MACEYHS, CBC, BMP, LAC, PRO, APTT, ANEU, GFR, MDW, ADIFF ####[address] [place], [place] [address] Potassium [Moles/Vol] 4.1 mmol/L Normal 3.5-5.1 [facility] Comment on above: Performed By: #### T ROPHS, CBC, BMP, LAC, PRO, APTT, ANEU, GFR, MDW, ADIFF ####[address] [place], [place] [address] Sodium [Moles/Vol] 142 mmol/L Normal 136-[address] [facility] Comment on above: Performed By: #### T EDIL, CBC, BMP, LAC, PRO, APTT, ANEU, GFR, MDW, ADIFF ####[address] [place], [place] [address] Urea nitrogen [Mass/Vol] 19 mg/dL High 7-18 [facility] Comment on above: Performed By: #### T ROPHS, CBC, BMP, LAC, PRO, APTT, ANEU, GFR, MDW, ADIFF ####[facility] [place], [place] [address] CBCon 12-24-2024 Erythrocyte distribution width (RBC) [Ratio] 13.4 % Normal 11.5-15.5 [facility] Comment on above: Performed By: #### T ROPHS, CBC, BMP, LAC, PRO, APTT, ANEU, GFR, MDW, ADIFF ####[address] [place], [place] [address] Hematocrit (Bld) [Volume fraction] 33.7 % Low 34.0-46.0 [facility] Comment on above: Performed By: #### T ROPHS, CBC, BMP, LAC, PRO, APTT, ANEU, GFR, MDW, ADIFF ####[address] [place] [address] Hgb 12.0 G/dL Normal 12.0-16.0 [facility] Comment on above: Performed By: #### T MACEYHS, CBC, BMP, LAC, PRO, APTT, ANEU, GFR, MDW, ADIFF ####[address] [place] [address] MCH (RBC) [Entitic mass] 30.0 pg Normal 27.0-33.0 [facility] Comment on above: Performed By: #### T EDIL, CBC, BMP, LAC, PRO, APTT, ANEU, GFR, MDW, ADIFF ####[address] [place] [address] MCHC 35.5 G/dL Normal 32.0-36.0 [facility] Comment on above: Performed By: #### T EDIL, CBC, BMP, LAC, PRO, APTT, ANEU, GFR, MDW, ADIFF ####[address] [place] [address] MCV (RBC) [Entitic vol] 84.5 fL Normal 80.0-99.0 [facility] Comment on above: Performed By: #### T ROPHS, CBC, BMP, LAC, PRO, APTT, ANEU, GFR, MDW, ADIFF ####[address] [place] [address] Platelet 197 10 3/mcL Normal 150-450 [facility] Comment on above: Performed By: #### T ROPHS, CBC, BMP, LAC, PRO, APTT, ANEU, GFR, MDW, ADIFF ####[address] [place] [id number] Platelet mean volume (Bld) [Entitic vol] 7.2 fL Normal 6.6-10.5 [facility] Comment on above: Performed By: #### T ROPHS, CBC, BMP, LAC, PRO, APTT, ANEU, GFR, MDW, ADIFF ####[address] [place], [place] [address] RBC 3.99 10 6/mcL Low 4.10-5.30 [facility] Comment on above: Performed By: #### T ROPHS, CBC, BMP, LAC, PRO, APTT, ANEU, GFR, MDW, ADIFF ####[address] [address] [place], [place] [address] WBC 6.5 10 3/mcL Normal 4.5-10.8 [facility] Comment on above: Performed By: #### T ROPHS, CBC, BMP, LAC, PRO, APTT, ANEU, GFR, MDW, ADIFF ####[place] [address] [place], [place] [address] CT ANGIOGRAPHY HEAD W/ CONTR Winnie 12-24-2024 CT ANGIOGRAPHY HEAD W/ CONTRAST ORIGINAL HISTORY: Right leg weakness COMPARISON: No TECHNIQUE: CT angiography of the head following uncomplicated administration of intravenous contrast, with 3D post-acquisition processing and with results displayed in source images, sagittal reconstructions through the carotid siphons, maximum intensity projections and volume rendered images. This exam was performed according to our departmental dose optimization program, and includes the following measures where applicable: automated exposure control, adjustment of the mAs and/or kVp according to patient size and/or exam, and an iterative reconstruction algorithm. FINDINGS: The study is mildly limited by technique; the gantry is not aligned with the skull base. Otherwise, there are atherosclerotic changes to the cavernous internal carotid arteries. There is a questionable small anterior communicating artery aneurysm, best seen on coronal views, no more than a mm or 2 in diameter. The major branches of the internal carotid arteries are otherwise patent without occlusion. There are atherosclerotic changes to the vertebral arteries. The major branches of the posterior circulation are otherwise unremarkable. IMPRESSION: Mildly limited examination. No large vessel occlusion. Atherosclerotic changes to the anterior and posterior circulation. Questionable small A-comm aneurysm, no more than a mm or 2 in diameter. Interpreted by: Ahmet Guerra MD Preliminary Report By: Ahmet Guerra MD Electronically signed By Ahmet Guerra MD Dictated Date: 12/24/2024 2:04:27 PM Prelim Date: 12/24/2024 2:08:14 PM Sign Date: 12/24/2024 2:08:14 PM Ordering Provider: DELPHINE PRIETO Interpreted by: Ahmet Guerra MD Preliminary Report By: Ahmet Guerra MD Electronically signed By Ahmet Guerra MD Dictated Date: 12/24/2024 2:04:27 PM Prelim Date: 12/24/2024 2:08:14 PM Sign Date: 12/24/2024 2:08:14 PM Ordering Provider: DELPHINE PRIETO [facility] CT ANGIOGRAPHY NECK W/CONTRA STon 12-24-2024 CT ANGIOGRAPHY NECK W/CONTRAST ORIGINAL HISTORY: Right leg weakness COMPARISON: No TECHNIQUE: CT angiogram of the neck following uncomplicated administration of intravenous contrast, with 3-D post acquisition processing and with results displayed in source images, rotational reconstructions centered on the carotid bifurcations and in maximum intensity projection. Percent stenosis is calculated using NASCET criteria. This exam was performed according to our departmental dose optimization program, and includes the following measures where applicable: automated exposure control, adjustment of the mAs and/or kVp according to patient size and/or exam, and an iterative reconstruction algorithm. FINDINGS: There are atherosclerotic changes to the right distal common and proximal internal carotid artery, mainly calcified plaque. There is no hemodynamically significant stenosis of the right internal carotid artery. There are atherosclerotic changes to the left distal common and proximal internal carotid artery, mainly calcified plaque. There is mild narrowing at the level of the proximal bulb, approximately 25%. The left vertebral artery is dominant. Both vertebral arteries are visualized from origin through skull base. IMPRESSION: Mild atherosclerotic narrowing on the left; no hemodynamically significant stenosis on the right. Interpreted by: Ahmet Guerra MD Preliminary Report By: Ahmet Guerra MD Electronically signed By Ahmet Guerra MD Dictated Date: 12/24/2024 2:17:15 PM Prelim Date: 12/24/2024 2:21:19 PM Sign Date: 12/24/2024 2:21:19 PM Ordering Provider: DLEPHINE PRIETO Interpreted by: Ahmet Guerra MD Preliminary Report By: Ahmet Guerra MD Electronically signed By Ahmet Guerra MD Dictated Date: 12/24/2024 2:17:15 PM Prelim Date: 12/24/2024 2:21:19 PM Sign Date: 12/24/2024 2:21:19 PM Ordering Provider: DELPHINE PRIETO [facility] CT HEAD OR BRAIN W/O MONEMAR Noe 12-24-2024 CT HEAD OR BRAIN W/O CONTRAST ORIGINAL HISTORY: Right leg weakness COMPARISON: No TECHNIQUE: Routine noncontrast head CT, with sagittal and coronal reconstructions. This exam was performed according to our departmental dose optimization program, and includes the following measures where applicable: automated exposure control, adjustment of the mAs and/or kVp according to patient size and/or exam, and an iterative reconstruction algorithm. FINDINGS: The ventricles and sulci are normal in size and configuration. There are no abnormal intra or extra-axial fluid collections. Nuñez-white matter differentiation is maintained. The calvaria and the bones of the base of the skull are intact. IMPRESSION: Unremarkable examination. Interpreted by: Ahmet Guerra MD Preliminary Report By: Ahmet Guerra MD Electronically signed By Ahmet Guerra MD Dictated Date: 12/24/2024 1:35:26 PM Prelim Date: 12/24/2024 1:36:48 PM Sign Date: 12/24/2024 1:36:48 PM Ordering Provider: DELPHINE PRIETO Interpreted by: Ahmet Guerra MD Preliminary Report By: Ahmet Guerra MD Electronically signed By Ahmet Guerra MD Dictated Date: 12/24/2024 1:35:26 PM Prelim Date: 12/24/2024 1:36:48 PM Sign Date: 12/24/2024 1:36:48 PM Ordering Provider: DELPHINE PRIETO [facility] FT4on 12-24-2024 Free T4 [Mass/Vol] 0.72 ng/dL Low 0.76-1.[address] [facility] Comment on above: Performed By: #### T SH, LIPID, FT4, A1C #### [id number] [place], [place] [address] LABORATORYOrdered By: SYSTEM SYSTEM on 12-24-2024 aPTT Coag (PPP) [Time] 30.0 s Normal 25.0 - 35.0 seconds AO [facility] SS Comment on above: Interpretive Data: F or Heparin anticoagulation therapy, the recommended therapeutic range is: 45.4-75.9 seconds. Patients on heparin therapy may have an extreme result. Basophils (Bld) [#/Vol] 0.1 103/mcL Normal 0.0 - 0.3 10^3/mcL AO Workflow SS Basophils/100 WBC (Bld) 1.1 % Normal 0.0 - 2.5 % AO Workflow SS Calcium [Mass/Vol] 8.3 mg/dL Low 8.4 - 10. 2 mg/dL AO ADM SS Chloride [Moles/Vol] 107 mmol/L Normal 98 - 10 7 mmol/L AO ADM SS CO2 [Moles/Vol] 30 mmol/L Normal 23 - 31 mmol/L AO ADM SS Creatinine [Mass/Vol] 0.94 mg/dL Normal 0.51 - 0.95 mg/dL AO ADM SS Electrolyte Balance 5.0 mEq/L Normal 4.0 - 15 .0 mEq/L AO ADM SS Eosinophil, Absolute 0.1 103/mcL Normal 0.0 - 0 .7 10^3/mcL AO Workflow SS Eosinophils/100 WBC (Bld) 0.9 % Normal 0.0 - 6.0 % AO Workflow SS Erythrocyte distribution width (RBC) [Ratio] 13.4 % Normal 11.5 - 15.5 % AO Workflow SS Estimated Glomerular Filtration Rate 65 ml/min/1.73sqm Invalid Interpretation Code AO Chemistry S Comment on above: Interpretive Data: Stages of Chronic Kidney Disease (CKD) Stage Description eGFR(ml/min/1.73 sq.m.) CKD 1 Normal kidney function or >=90 normal kindney function with possible kidney damage (ex. Proteinuria) CKD 2 Kidney damage with mild loss 60-89 of kidney function CKD 3a Mild to moderate loss of kidney 45-59 function CKD 3b Moderate to severe loss of 30-44 of kindey function CKD 4 Severe loss of kidney function 15-29 CKD 5 Kidney failure <15 Note: (go live 2024) the eGFR calculation was updated to the 2020 CKD-EPI creatinine equation without a race factor to calculate the eGFR results. Free T4 [Mass/Vol] 0.72 ng/dL Low 0.76 - 1. 46 ng/dL AO ADM SS Glucose [Mass/Vol] 124 mg/dL High 83 - 110 mg/dL AO ADM SS Glucose [Mass/Vol] 151 mg/dL Invalid Interpretation Code AO Chemistry S Comment on above: Interpretive Data: E stimated average glucose (eAG) is a calculated value from Hemoglobin A1C and is construction sales representative of the average blood glucose level in the last 2-3 month period. Normal range: less than 114 mg/dL HbA1c (Bld) [Mass fraction] 6.9 % High 4.3 - 6.4 % AO ADM SS Hematocrit (Bld) [Volume fraction] 33.7 % Low 34.0 - 46.0 % AO Workflow SS Hemoglobin (Bld) [Mass/Vol] 12.0 G/dL Normal 12.0 - 16.0 G/dL AO Workflow SS INR Coag (PPP) [Relative time] 1.0 {INR} Invalid Interpretation Code AO [facility] SS Comment on above: Interpretive Data: Sivan browning [employer] (CHEST, 1992, [id number]) recommended therapeutic range for oral anticoagulant therapy is: LOW RISK: Prophylaxis of venous thrombosis INR: 2.0-3.0 Treatment of pulmonary embolism 2.0-3.0 Prevention of systemic embolism 2.0-3.0 HIGH RISK: Mechanical prosthetic valves 2.5-3.5 Lactate [Moles/Vol] 1.6 mmol/L Normal 0.4 - 2. 0 mmol/L AO ADM SS Lymphocytes (Bld) [#/Vol] 2.2 103/mcL Normal 0.9 - 4.3 10^3/mcL AO Workflow SS Lymphocytes/100 WBC (Bld) 33.7 % Normal 20.0 - 40.0 % AO Workflow SS MCH (RBC) [Entitic mass] 30.0 pg Normal 27.0 - 33.0 pg AO Workflow SS MCHC 35.5 G/dL Normal 32.0 - 36.0 G/dL AO Workflow SS MCV (RBC) [Entitic vol] 84.5 fL Normal 80.0 - 99.0 fL AO Workflow SS Monocyte distribution width Auto (Bld) [Entitic vol] 18.27 1 Normal 0.00 - 20.00 AO Workflow SS Comment on above: Result Comment: For ED adult patients suspected of sepsis, MDW<=20.0 does not rule out sepsis or risk of sepsis Monocytes (Bld) [#/Vol] 0.5 103/mcL Normal 0.1 - 1.4 10^3/mcL AO Workflow SS Monocytes/100 WBC (Bld) 7.8 % Normal 2.0 - 13.0 % AO Workflow SS Neutrophils (Bld) [#/Vol] 3.6 103/mcL Normal 2.3 - 8.1 10^3/mcL AO Workflow SS Neutrophils/100 WBC (Bld) 56.5 % Normal 50.0 - 75.0 % AO Workflow SS Platelet mean volume (Bld) [Entitic vol] 7.2 fL Normal 6.6 - 10.5 fL AO Workflow SS Platelets (Bld) [#/Vol] 197 103/mcL Normal 150 - 450 10^3/mcL AO Workflow SS Potassium [Moles/Vol] 4.1 mmol/L Normal 3.5 - 5.1 mmol/L AO ADM SS PT Coag (PPP) [Time] 11.3 s Normal 9.0 - 1 4.4 seconds AO [facility] SS RBC (Bld) [#/Vol] 3.99 106/mcL Low 4.10 - 5.3 0 10^6/mcL AO Workflow SS Sodium [Moles/Vol] 142 mmol/L Normal 136 - 145 mmol/L AO ADM SS Troponin I.cardiac DL <= 0.01 ng/mL [Mass/Vol] 8 ng/L Normal 0 - 51 ng/L AO ADM SS Comment on above: Interpretive Data: H igh Sensitive Troponin I Reference Ranges: Female: 0-51 ng/L Male: 0-76 ng/L Testing performed on [employer] using a homogeneous sandwich chemiluminescent immunoassay based on [employer] technology. TSH Qn 0.90 m[IU]/L Normal 0.36 - 3.74 mcIU/mL AO ADM SS Urea nitrogen [Mass/Vol] 19 mg/dL High 7 - 18 mg/dL AO ADM SS Urea nitrogen/Creatinine [Mass ratio] 20 ratio Normal 7 - 27 ratio AO ADM SS WBC (Bld) [#/Vol] 6.5 103/mcL Normal 4.5 - 10.8 10^3/mcL AO Workflow SS LABORATORYOrdered By: Romi Benton on 12-24-2024 Cholesterol [Mass/Vol] 140 mg/dL Normal 0 - 2 00 mg/dL AO ADM SS Comment on above: Interpretive Data: C holesterol Reference Interval: Less than 200 Desirable 200-239 Borderline high risk 240 and above High risk Cholesterol in HDL [Mass/Vol] 39 mg/dL Low 40 - 60 mg/dL AO ADM SS Cholesterol in LDL [Mass/Vol] 36 mg/dL Normal 0 - 130 mg/dL AO ADM SS Triglyceride [Mass/Vol] 324 mg/dL High 0 - 150 mg/dL AO ADM SS Comment on above: Interpretive Data: T riglyceride Reference Interval: Less than 150 Normal 150-199 Borderline high risk 200-499 High risk 500 or higher Very high risk LABORATORYOrdered By: Jayleen Estrada on 12-24-2024 Blood Glucose Interventions Notify physician (12/24/24 1:13 PM) [facility] Work Phone: LACon 12-24-2024 Lactic Acid Lvl 1.6 mmol/L Normal 0.4-2.0 [facility] Comment on above: Performed By: #### T ROPHS, CBC, BMP, LAC, PRO, APTT, ANEU, GFR, MDW, ADIFF ####[address] [address] LIPIDon 12-24-2024 Cholesterol [Mass/Vol] 140 mg/dL Normal 0-200 [facility] Comment on above: Result Comment: Chol esterol Reference Interval: Less than 200 Desirable 200-239 Borderline high risk 240 and above High risk Performed By: #### T SH, LIPID, FT4, A1C #### [address] [place], [place] [address] Cholesterol in HDL [Mass/Vol] 39 mg/dL Low 40-60 [facility] Comment on above: Performed By: #### T SH, LIPID, FT4, A1C #### [address] [place], [place] [address] Cholesterol in LDL [Mass/Vol] 36 mg/dL Normal 0-130 [facility] Comment on above: Performed By: #### T SH, LIPID, FT4, A1C #### [address] [place], [place] [address] Triglyceride [Mass/Vol] 324 mg/dL High 0-150 [facility] Comment on above: Result Comment: Trig lyceride Reference Interval: Less than 150 Normal 150-199 Borderline high risk 200-499 High risk 500 or higher Very high risk Performed By: #### T SH, LIPID, FT4, A1C #### [facility] [address] [place], [place] [address] PROon 12-24-2024 PT Coag (PPP) [Time] 11.3 s Normal 9.0-14.4 [facility] Comment on above: Performed By: #### T EDIL, CBC, BMP, LAC, PRO, APTT, ANEU, GFR, MDW, ADIFF ####[facility] [place], [place] [address] PT International Ratio 1.0 Normal [facility] Comment on above: Result Comment: The [place] [employer] (CHEST, 1992, 102:312S-25S) recommended therapeutic range for oral anticoagulant therapy is: LOW RISK: Prophylaxis of venous thrombosis INR: 2.0-3.0 Treatment of pulmonary embolism 2.0-3.0 Prevention of systemic embolism 2.0-3.0 HIGH RISK: Mechanical prosthetic valves 2.5-3.5 Performed By: #### T EDIL, CBC, BMP, LAC, PRO, APTT, ANEU, GFR, MDW, ADIFF ####[address] [place], [place] [address] TROPHSon 12-24-2024 High Sensitivity Troponin I 8 ng/L Normal 0-51 [facility] Comment on above: Result Comment: High Sensitive Troponin I Reference Ranges: Female: 0-51 ng/L Male: 0-76 ng/L Testing performed on eLama using a homogeneous sandwich chemiluminescent immunoassay based on [employer] technology. Performed By: #### T EDIL, CBC, BMP, LAC, PRO, APTT, ANEU, GFR, MDW, ADIFF ####[facility] [place], [place] [address] TSHon 12-24-2024 TSH Qn 0.90 m[IU]/L Normal 0.36-3.74 [facility] Comment on above: Performed By: #### T SH, LIPID, FT4, A1C #### [address] [place], [place] [address] XR CHEST 1 VIEWon 12-24-2024 XR CHEST 1 VIEW ORIGINAL EXAMINATION: ONE XRAY VIEW OF THE CHEST12/24/2024 1:50 pm COMPARISON: 07/15/2022 HISTORY: ORDERING SYSTEM PROVIDED HISTORY: Reason for Exam: chest pain/SOB FINDINGS: Cardiomediastinal contours are stable. There are hypoventilatory changes. No focal consolidation or pulmonary edema. No pneumothorax or pleural effusion. No acute osseous abnormalities. Degenerative changes of the spine. IMPRESSION: Hypoventilatory changes, otherwise no acute radiographic findings. I have personally reviewed the images of this examination and agree with the resident's findings and interpretation. Interpreted by: Gurdeep Hayes DO Preliminary Report By: Issa Sahni MD Electronically signed By Gurdeep Hayes DO Dictated Date: 12/24/2024 2:00:15 PM Prelim Date: 12/24/2024 2:06:34 PM Sign Date: 12/24/2024 2:06:34 PM Ordering Provider: DELPHINE PRIETO Interpreted by: Gurdeep Hayes DO Preliminary Report By: Issa Sahni MD Electronically signed By Gurdeep Hayes DO Dictated Date: 12/24/2024 2:00:15 PM Prelim Date: 12/24/2024 2:06:34 PM Sign Date: 12/24/2024 2:06:34 PM Ordering Provider: DELPHINE PRIETO Normal [facility] CNCOon 12-13-2024 CNCO Letter Text Normal [facility] CNOVon 11-05-2024 CNOV Office Visit (FAMPWS ) CARLOS COVARRUBIAS ([id number]) 1955 F Date Time Provider Department 11/05/24 2:20 PM [facility] During your visit today, we recorded the following information about you: Pulse Blood pressure Weight 74/minute 116/64 99.8 kg Alysha Sol APRN.[employer] 11/05/2024 3:33 PM Addendum 11/05/2024 Recording using SpiderSuite software for draft documentation of the visit was discussed with the patient/authorized construction sales representative; all questions welcomed and answered. Patient/authorized construction sales representative agreed to proceed HPI: Carlos is a 69-year-old female with a history of diabetes, presenting for follow-up on recent lab work, evaluation of leg heaviness, and recurrent chest pain. Lab Work Review: - Recent lab work completed. - A1c: 6.5%. - CBC, kidney, and liver function tests within normal limits. - Lipid panel: Elevated triglycerides. - Currently taking atorvastatin. Leg Heaviness: - Reports legs feel "heavy" and ache, especially with walking. - Symptoms are present even at rest. - Occasional swelling in the right foot and ankle x years - Desires weight loss; current BMI is 34. - Weight has remained stable at 220 lbs over the past 1.5 years; previously 207 lbs in 2019. Chest Pain: - Recurrent chest pain episodes, approximately 2-3 times in the past 3 weeks. - Most recent episode occurred while in bed, accompanied by left arm pain, nausea, and emesis. - Took one of her 's nitroglycerin tablets during a severe episode. - Denies associated dizziness. - Previous echocardiogram in 2023 was normal. - Wore a hall monitor for a few weeks about a year ago to evaluate for AFib and this was normal. - No current cardiology follow-up appointments scheduled. No other concerns or complaints today. 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 08/07/2011 Seborrheic Keratosis 10/23/2010 Skin tag 08/07/2011 Tobacco abuse 07/13/2013 Trigger finger b/l hands, has had surgeries Type II or unspecified type diabetes mellitus without mention of complication, not stated as uncontrolled Unspecified hereditary and idiopathic peripheral neuropathy Previous Surgical History PAST SURGICAL HISTORY Procedure Laterality Date CHOLECYSTECTOMY HX 1994 Cholecystectomy, laparoscopic COLONOSCOPY 02/19/2015 ESOPHAGOGASTRODUODENOS COPY TRANSORAL DIAGNOSTIC 03/28/2013 EGD ESOPHAGOGASTRODUODENOS COPY TRANSORAL DIAGNOSTIC 02/23/2017 EGD PAST SURGICAL HISTORY OF 1974 LEANDRO PAST SURGICAL HISTORY OF 1980 Bilateral salpingoophorectomy PAST SURGICAL HISTORY OF 1986 Lumbar laminectomy PAST SURGICAL HISTORY OF 2002- multiple right partial clavicle resection and first rib resection- septic arthritis PAST SURGICAL HISTORY OF 07/2016 back surgery Lumbar/ thoracic Family History FAMILY HISTORY Problem Relation Age of Onset Diabetes Mother Stroke Mother Coronary Artery Disease Sister Early 40's with finding of ASCVD Coronary Artery Disease Brother 2 brothers diagnosed in their 60's Cancer Brother One brother with brain cancer and another one with tumors "all over his body" Coronary Artery Disease Father ASCVD in his 80's Coronary Artery Disease Brother Cancer Brother Patient Allergies ALLERGIES Allergen Reactions Augmentin [Amoxicil* GI Upset Nausea, vomiting Biaxin [Clarithromy* GI Upset Metallic taste; can tolerate Zpak Byetta [Exenatide] Intolerance GI upset Glucophage [Metform* Intolerance GI upset Iodine Swelling myleogram dye Latex Unknown Omnicef [Cefdinir] GI Upset Nausea (more content not included)... Normal [facility] [id number] 11-05-2024 ECG01 Ventricular Rate : 6 9 BPM Atrial Rate : 69 BPM P-R Interval : 170 ms QRS Duration : 88 ms Q-T Interval : 420 ms QTC Calculation(Bazett) : 450 ms Calculated P Lombard : 44 degrees Calculated R [place] : -3 degrees Calculated T [place] : 80 degrees NORMAL SINUS RHYTHM NORMAL ECG Confirmed by MD ROSA QARAB ([id number]) on 11/07/2024 11:48:59 AM NAME : CARLOS COVARRUBIAS PID : [id number] : 1955 Gender : Female Race : ORD : Procedure Date : Nov 05 2024 15:04:06 Edit Date : Nov 07 2024 11:49:03 Diagnosis: NORMAL SINUS RHYTHM NORMAL ECG Confirmed by MD ROSA QARAB ([id number]) on 11/07/2024 11:48:59 AM Test Reason : Location : 185 : [facility] Overread By : MD ROSA QARAB Edited By : MD ROSA QARAB Referred By : Ebenezer, Acquired by : Shannan wolf [facility] 10-31-2024 CNPN Telephone (FAMPWS) DEB COVARRUBIASARA Jorge A ([id number]) 1955 F Date Time Provider Department 10/31/24 [facility] DRIVER [facility] During your visit today, we recorded the following information about you: El Driver DO 10/31/2024 9:02 PM Signed Patient missed her office visit today Please make a follow up visit Okay with [employer] Need for labs to be reviewed El Driver DO Allergies As of Date: 10/31/2024 Noted Allergy Reaction AUGMENTIN (AMOXICILLIN-POT CLAVUL*04/25/2018 8 - GI Upset Comments: Nausea, vomiting BIAXIN (CLARITHROMYCIN) 03/27/2007 8 - GI Upset Comments: Metallic taste; can tolerate Zpak BYETTA (EXENATIDE) 07/25/2006 5 - Intolerance Comments: GI upset GLUCOPHAGE (METFORMIN) 07/25/2006 5 - Intolerance Comments: GI upset IODINE 01/16/2004 7 - Swelling Comments: myleogram dye LATEX 09/25/2014 16 - Unknown OMNICEF (CEFDINIR) 04/25/2018 8 - GI Upset Comments: Nausea, vomiting Date Reviewed: 10/01/2024 Reviewed by: Bettina Darnell LPN - Fully Assessed Prescriptions as of 12/13/2024 - blood sugar diagnostic (BLOOD GLUCOSE TEST) test strip Test blood sugar(s) 2 times daily. Dx: Type 2 DM - Uncontrolled 65 Insulin: Yes - gabapentin (NEURONTIN) 300 mg capsule Take 300mg by mouth in the morning and afternoon. Take 1200mg at bedtime. - glimepiride (AMARYL) 2 mg tablet Take 1 tablet by mouth daily with breakfast. - atorvastatin (LIPITOR) 40 mg tablet Take 1 tablet by mouth once daily. - lisinopril (ZESTRIL) 20 mg tablet Take 1.5 tablets by mouth once daily. - omeprazole (PRILOSEC) 40 mg capsule Take 1 capsule by mouth two times a day. - traZODone (DESYREL) 100 mg tablet Take 2 tablets by mouth daily at bedtime. - sertraline (ZOLOFT) 50 mg tablet Take 1 tablet by mouth once daily. - fluticasone (FLONASE) 50 mcg/actuation nasal spray Use 2 Sprays in each nostril once daily. Rinse mouth after use. - triamcinolone acetonide (KENALOG) 0.1 % cream Apply 1 application to affected area three times a day. Apply sparingly to area for rash/itching. - gabapentin (NEURONTIN) 300 mg capsule Take 1 tablet by mouth in the morning and afternoon. Take 4 tablets at bedtime. - ondansetron orally disintegrating (ZOFRAN ODT) 4 mg disintegrating tablet Take 1 tablet by mouth every 8 hours as needed for nausea/vomiting. - Blood-Glucose Meter monitoring kit Test blood sugar(s) 2 times daily. Glucose Meter of Choice - Kit - Dx: Type 2 DM - Uncontrolled E11.65 - Insulin Syringe-Needle U-100 (BD INSULIN SYRINGE UF) 0.5 mL 30 gauge x 1/2" inject with insulin Four times a day with each meal and at bedtime as directed - ACCU-CHEK GUIDE GLUCOSE METER USE DIRECTED - Blood-Glucose Meter monitoring kit Glucose Meter of Choice - Kit - Dx: Type 2 DM - Uncontrolled E11.65 - insulin regular, human (NOVOLIN R REGULAR U-100 INSULN INJECTION) by INJECTION(UNSPECIFIED PARENTERAL ROUTES) route. 34 units in the Am - insulin NPH injection (HumuLIN N,NovoLIN N) 35 units in the Am 45 units in the PM - Lancets lancets Test blood sugar(s) BID times daily. Dx: Type 2 DM - Uncontrolled E11.65 Insulin: Yes - aspirin, enteric coated (ECOTRIN LOW STRENGTH) 81 mg EC tablet Take 1 tablet by mouth once daily. 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*05/03/2007 01/04/2017 Vitamin D deficiency [E55.9] 05/05/2007 Seborrheic Keratosis [L82.1] 10/23/2010 01/04/2017 Plantar wart of left foot: plantar 1st MTP [B07*08/07/2011 01/04/2017 Intradermal Nevus: Melanocytic vs Neuroid Nevus*08/07/2011 01/04/2017 R/O Neurofibroma: R mid lower buttock [D36.10] 08/07/2011 01/04/2017 R/O Nevus lipomatosus cutaneous superficialis: *08/07/2011 01/04/2017 Skin tag [L91.8] 08/07/2011 01/04/2017 Oral lesion: mid post hard palate [K13.70] 08/07/2011 01/04/2017 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9] 07/13/2013 Right carotid bruit [R09.89] 07/13/2013 Controlled substance agreement signed [Z79.899] 04/24/2014 GERD (gastroesophageal reflux disease) [K21.9] 09/25/2014 Obesity, Class I, BMI 30-34.9 [E66.811] 09/25/2014 Neuropathy (HCC) [G62.9] 09/25/2014 Hypertension [I10] 09/25/2014 Screening for unspecified condition [Z13.9] 02/19/2015 02/19/2015 Globus sensation [R09.A2] 02/09/2017 Recurr (more content not included)... Normal [facility] 25([place])D3 [facility] 2024 25-hydroxyvitamin D3 [Mass/Vol] 34.1 ng/mL Normal 31.0-80.0 [facility] Comment on above: Order Comment: Speci men Type: BLOOD SPECIMENOrdering Facility: [facility] Address: [address] [place] [address] Result Comment: Clas sification of 25 [place] Vitamin D status: Deficiency/Insufficiency: < or = 30 ng/ml. Sufficiency/Optimal Levels: 31-80 ng/mL Toxicity: > 100 ng/mL. Test performed by chemiluminescent immunoassay. Performed By: #### 1 989-3 ####[facility] LABCLIA [id number] [place] [address] [place] ALBUMIN/CREATININE RATIO, UR [facility] 10-29-2024 Albumin DL <= 20 mg/L (U) [Mass/Vol] 131.4 mg/L Normal [facility] Comment on above: Order Comment: Speci men Type: URINE SPECIMENOrdering Facility: [facility] Address: [address] [place] [address] Performed By: #### U ACR ####[facility] LABCLIA [id number] [place] [address] [place] Albumin/Creatinine (U) [Mass ratio] 110 mg/g High <30 [facility] Comment on above: Order Comment: Speci men Type: URINE SPECIMENOrdering Facility: [facility] Address: [address] [place] [address] Result Comment: Adul t Male and Female Nephrotic Criteria: <30 mg/g is considered normal to mildly increased 30-300 mg/g is considered moderately increased >300 mg/g is considered severely increased KDIGO. (2013). KDIGO 2012 Clinical Practice Guideline for the Evaluation and Management of Chronic Kidney Disease. Official Journal of the International Society of Nephrology, 3(1), 1-150. Performed By: #### U ACR ####[facility] LABCLIA [id number] [place] [address] [place] Creatinine (U) [Mass/Vol] 119.8 mg/dL Normal 20.0-300.0 [facility] Comment on above: Order Comment: Speci men Type: URINE SPECIMENOrdering Facility: [facility] Address: [address] [place] [address] Performed By: #### U ACR ####[facility] LABCLIA [id number] [place] [address] [place] CBC W Auto Differential pane l (Bld)on 10-29-2024 Basophils (Bld) [#/Vol] 0.06 10*3/uL Normal <0.11 [facility] Comment on above: Order Comment: Speci men Type: BLOOD SPECIMENOrdering Facility: [facility] Address: [address] [place] [address] Performed By: #### 5 7021-8 ####[facility] LABCLIA [id number] [place] [id number] [place] Basophils/100 WBC (Bld) 0.9 % Normal [facility] Comment on above: Order Comment: Speci men Type: BLOOD SPECIMENOrdering Facility: [facility] Address: [address] [place] [address] Performed By: #### 5 7021-8 ####[facility] LABCLIA [id number] [address], [place] [address] [place] Differential cell count method Nom (Bld) Auto Normal [facility] Comment on above: Order Comment: Speci men Type: BLOOD SPECIMENOrdering Facility: [facility] Address: [address] [place] [address] Performed By: #### 5 7021-8 ####[facility] LABCLIA [id number] [address], [place] [address] [place] Eosinophils (Bld) [#/Vol] 0.08 10*3/uL Normal <0.46 [facility] Comment on above: Order Comment: Speci men Type: BLOOD SPECIMENOrdering Facility: [facility] Address: [address] [place] [address] Performed By: #### 5 7021-8 ####[facility] LABCLIA [id number] [place] [address] [place] Eosinophils/100 WBC (Bld) 1.2 % Normal [facility] Comment on above: Order Comment: Speci men Type: BLOOD SPECIMENOrdering Facility: [facility] Address: [address] [place] [address] Performed By: #### 5 7021-8 ####[facility] LABCLIA [id number] [place] [address] [place] Erythrocyte distribution width (RBC) [Ratio] 12.5 % Normal 11.5-15.0 [facility] Comment on above: Order Comment: Speci men Type: BLOOD SPECIMENOrdering Facility: [facility] Address: [address] [place] [address] Performed By: #### 5 7021-8 ####[facility] LABCLIA [id number] [address], [facility] [place] Hematocrit (Bld) [Volume fraction] 40.5 % Normal 36.0-46.0 [facility] Comment on above: Order Comment: Speci men Type: BLOOD SPECIMENOrdering Facility: [facility] Address: [address] [place] [address] Performed By: #### 5 7021-8 ####[facility] LABCLIA [id number] [place] [address] [place] Hemoglobin (Bld) [Mass/Vol] 13.2 g/dL Normal 11.5-15.5 [facility] Comment on above: Order Comment: Speci men Type: BLOOD SPECIMENOrdering Facility: [facility] Address: [address] [place] [address] Performed By: #### 5 7021-8 ####[facility] LABCLIA [id number] [place] [address] [place] Immature granulocytes (Bld) [#/Vol] 10*3/uL Normal <0.10 [facility] Comment on above: Order Comment: Speci men Type: BLOOD SPECIMENOrdering Facility: [facility] Address: [address] [place] [address] Performed By: #### 5 7021-8 ####[facility] LABCLIA [id number] [place] [address] [place] Immature granulocytes/100 WBC (Bld) 0.1 % Normal [facility] Comment on above: Order Comment: Speci men Type: BLOOD SPECIMENOrdering Facility: [facility] Address: [address] [place] [address] Performed By: #### 5 7021-8 ####[facility] LABCLIA [id number] [place] [id number] [place] Lymphocytes (Bld) [#/Vol] 2.39 10*3/uL Normal 1.00-4.00 [facility] Comment on above: Order Comment: Speci men Type: BLOOD SPECIMENOrdering Facility: [facility] Address: [address] [place] [address] Performed By: #### 5 7021-8 ####[facility] LABCLIA [id number] [place] [address] [place] Lymphocytes/100 WBC (Bld) 35.3 % Normal [facility] Comment on above: Order Comment: Speci men Type: BLOOD SPECIMENOrdering Facility: [facility] Address: [address] [place] [address] Performed By: #### 5 7021-8 ####[facility] LABCLIA [id number] [place] [address] [place] MCH (RBC) [Entitic mass] 28.7 pg Normal 26.0-34.0 [facility] Comment on above: Order Comment: Speci men Type: BLOOD SPECIMENOrdering Facility: [facility] Address: [address] [place] [address] Performed By: #### 5 7021-8 ####[facility] LABIA [id number] [place] [address] [place] MCHC (RBC) [Mass/Vol] 32.6 g/dL Normal 30.5-36.0 [facility] Comment on above: Order Comment: Speci men Type: BLOOD SPECIMENOrdering Facility: [facility] Address: [address] [place] [address] Performed By: #### 5 7021-8 ####[facility] LABIA [id number] [place] [address] [place] MCV (RBC) [Entitic vol] 88.0 fL Normal 80.0-100.0 [facility] Comment on above: Order Comment: Speci men Type: BLOOD SPECIMENOrdering Facility: [facility] Address: [address] [place] [address] Performed By: #### 5 7021-8 ####[facility] LABCLIA [id number] [place] [address] [place] Monocytes (Bld) [#/Vol] 0.55 10*3/uL Normal <0.87 [facility] Comment on above: Order Comment: Speci men Type: BLOOD SPECIMENOrdering Facility: [facility] Address: [address] [place] [address] Performed By: #### 5 7021-8 ####[facility] LABCLIA [id number] [address] [address] [place] Monocytes/100 WBC (Bld) 8.1 % Normal [facility] Comment on above: Order Comment: Speci men Type: BLOOD SPECIMENOrdering Facility: [facility] Address: [address] [place] [address] Performed By: #### 5 7021-8 ####[facility] LABIA [id number] [place] [address] [place] Neutrophils (Bld) [#/Vol] 3.69 10*3/uL Normal 1.45-7.50 [facility] Comment on above: Order Comment: Speci men Type: BLOOD SPECIMENOrdering Facility: [facility] Address: [address] [place] [address] Performed By: #### 5 7021-8 ####[facility] LABCLIA [id number] [place] [address] [place] Neutrophils/100 WBC (Bld) 54.4 % Normal [facility] Comment on above: Order Comment: Speci men Type: BLOOD SPECIMENOrdering Facility: [facility] Address: [address] [place] [address] Performed By: #### 5 7021-8 ####[facility] LABCLIA [id number] [place] [id number] [place] Nucleated RBC (Bld) [#/Vol] 10*3/uL Normal <0.01 [facility] Comment on above: Order Comment: Speci men Type: BLOOD SPECIMENOrdering Facility: [facility] Address: [address] [place] [address] Performed By: #### 5 7021-8 ####[facility] LABCLIA [id number] [address] [place] [address] [place] Nucleated RBC/100 WBC (Bld) [Ratio] 0.0 /100 WBC Normal [facility] Comment on above: Order Comment: Speci men Type: BLOOD SPECIMENOrdering Facility: [facility] Address: [address] [place] [address] Performed By: #### 5 7021-8 ####[facility] LABCLIA [id number] [address] [place] [address] [place] Platelet mean volume (Bld) [Entitic vol] 10.2 fL Normal 9.0-12.7 [facility] Comment on above: Order Comment: Speci men Type: BLOOD SPECIMENOrdering Facility: [facility] Address: [address] [place] [address] Performed By: #### 5 7021-8 ####[facility] LABIA [id number] [address], [place] [address] [place] Platelets (Bld) [#/Vol] 220 10*3/uL Normal 150-400 [facility] Comment on above: Order Comment: Speci men Type: BLOOD SPECIMENOrdering Facility: [facility] Address: [address] [place] [address] Performed By: #### 5 7021-8 ####[facility] LABIA [id number] [address], [facility] [place] RBC (Bld) [#/Vol] 4.60 10*6/uL Normal 3.90-5.20 [facility] Comment on above: Order Comment: Speci men Type: BLOOD SPECIMENOrdering Facility: [facility] Address: [address] [place] [address] Performed By: #### 5 7021-8 ####[facility] LABCLIA [id number] [address] [place] [address] [place] WBC (Bld) [#/Vol] 6.78 10*3/uL Normal 3.70-11.00 [facility] Comment on above: Order Comment: Speci men Type: BLOOD SPECIMENOrdering Facility: [facility] Address: [address] [place] [address] Performed By: #### 5 7021-8 ####[facility] LABCLIA [id number] [place] [address] [place] Comprehensive metabolic 2000 panelon 10-29-2024 Albumin [Mass/Vol] 4.2 g/dL Normal 3.9-4.9 [facility] Comment on above: Order Comment: Speci men Type: BLOOD SPECIMENOrdering Facility: [facility] Address: [address] [place] [address] Performed By: #### 2 4323-8, 46020-0 ####[facility] LABCLIA [id number] [place] [address] [place] ALP [Catalytic activity/Vol] 105 U/L Normal 34-123 [facility] Comment on above: Order Comment: Speci men Type: BLOOD SPECIMENOrdering Facility: [facility] Address: [address] [place] [address] Performed By: #### 2 4323-8, 87890-4 ####[facility] LABCLIA [id number] [place] [address] [place] ALT [Catalytic activity/Vol] 21 U/L Normal 7-38 [facility] Comment on above: Order Comment: Speci men Type: BLOOD SPECIMENOrdering Facility: [facility] Address: [address] [place] [address] Performed By: #### 2 4323-8, 77453-8 ####[facility] LABCLIA [id number] [place] [id number] [place] Anion gap [Moles/Vol] 8 mmol/L Normal 8-15 [facility] Comment on above: Order Comment: Speci men Type: BLOOD SPECIMENOrdering Facility: [facility] Address: [address] [place] [id number] Performed By: #### 2 4323-8, 80290-1 ####[facility] LABCLIA [id number] [address] [address] [place] AST [Catalytic activity/Vol] 21 U/L Normal 13-35 [facility] Comment on above: Order Comment: Speci men Type: BLOOD SPECIMENOrdering Facility: [facility] Address: [address] [place], [place] [address] Performed By: #### 2 4323-8, 58956-5 ####[facility] LABIA [id number] [place] [address] [place] Bilirubin [Mass/Vol] 0.4 mg/dL Normal 0.2-1.3 [facility] Comment on above: Order Comment: Speci men Type: BLOOD SPECIMENOrdering Facility: [facility] Address: [address] [place], [place] [address] Performed By: #### 2 4323-8, 39762-7 ####[facility] LABIA [id number] [place] [address] [place] Calcium [Mass/Vol] 9.6 mg/dL Normal 8.5-10.2 [facility] Comment on above: Order Comment: Speci men Type: BLOOD SPECIMENOrdering Facility: [facility] Address: [address] [place], [place] [address] Performed By: #### 2 4323-8, 78486-8 ####[facility] LABIA [id number] [place] [address] [place] Chloride [Moles/Vol] 103 mmol/L Normal 98-107 [facility] Comment on above: Order Comment: Speci men Type: BLOOD SPECIMENOrdering Facility: [facility] Address: [address] [place], [place] [address] Performed By: #### 2 4323-8, 14499-1 ####[facility] LABIA [id number] [place] [address] [place] CO2 [Moles/Vol] 28 mmol/L Normal 22-30 [facility] Comment on above: Order Comment: Speci men Type: BLOOD SPECIMENOrdering Facility: [facility] Address: [address] [place] [address] Performed By: #### 2 4323-8, 21696-3 ####[facility] LABIA [id number] [place] [address] [place] Creatinine [Mass/Vol] 0.74 mg/dL Normal 0.58-0.96 [facility] Comment on above: Order Comment: Speci men Type: BLOOD SPECIMENOrdering Facility: [facility] Address: [address] [place] [address] Performed By: #### 2 4323-8, 10915-3 ####[facility] [id number] [place] [address] [place] Creatinine and Glomerular filtration rate.predicted panel (S/P/Bld) 87 mL/min/1.73m??? Normal >=60 [facility] Comment on above: Order Comment: Speci men Type: BLOOD SPECIMENOrdering Facility: [facility] Address: [address] [place] [address] Result Comment: Krystyna mated Glomerular Filtration Rate (eGFR) is calculated using the 2020 CKD-EPI creatinine equation. This equation utilizes serum creatinine, sex, and age as parameters. The creatinine assay has traceable calibration to isotope dilution-mass spectrometry. Refer to KDIGO guidelines for clinical interpretation. In patients with unstable renal function, e.g. those with acute kidney injury, the eGFR may not accurately reflect actual GFR. Performed By: #### 2 4323-8, 04072-4 ####[facility] LABIA [id number] [place] [address] [place] Glucose [Mass/Vol] 132 mg/dL High 74-99 [facility] Comment on above: Order Comment: Speci men Type: BLOOD SPECIMENOrdering Facility: [facility] Address: [address] [place] [address] Result Comment: The [place] Diabetes Association (ADA) provides guidance for cutoff values for fasting glucose and random glucose. The ADA defines fasting as no caloric intake for at least 8 hours. Fasting plasma glucose results between 100 to 125 mg/dL indicate increased risk for diabetes (prediabetes). Fasting plasma glucose results greater than or equal to 126 mg/dL meet the criteria for diagnosis of diabetes. In the absence of unequivocal hyperglycemia, results should be confirmed by repeat testing. In a patient with classic symptoms of hyperglycemia or hyperglycemic crisis, random plasma glucose results greater than or equal to 200 mg/dL meet the criteria for diagnosis of diabetes. Reference: Standards of Medical Care in Diabetes 2016, [place] Diabetes Association. Diabetes Care. 2016.39(Suppl 1). Performed By: #### 2 4323-8, 20601-7 ####[facility] LABCLIA [id number] [place] [address] [place] Potassium [Moles/Vol] 4.3 mmol/L Normal 3.7-5.1 [facility] Comment on above: Order Comment: Chirag quinonez Type: BLOOD SPECIMENOrdering Facility: [facility] Address: [address] [place] [address] Performed By: #### 2 4323-8, 08335-6 ####[facility] LABCLIA [id number] [place] [address] [place] Protein [Mass/Vol] 7.0 g/dL Normal 6.3-8.0 [facility] Comment on above: Order Comment: Tobiasi devi Type: BLOOD SPECIMENOrdering Facility: [facility] Address: [address] [place] [address] Performed By: #### 2 4323-8, 07780-1 ####[facility] LABCLIA [id number] [place] [address] [place] Sodium [Moles/Vol] 139 mmol/L Normal 136-144 [facility] Comment on above: Order Comment: Chirag men Type: BLOOD SPECIMENOrdering Facility: [facility] Address: [address] [place] [address] Performed By: #### 2 4323-8, 18408-7 ####[facility] LABCLIA [id number] [facility] [address] [address] [place] Urea nitrogen [Mass/Vol] 19 mg/dL Normal 7-21 [facility] Comment on above: Order Comment: Chirag men Type: BLOOD SPECIMENOrdering Facility: [facility] Address: [address] [place] [address] Performed By: #### 2 4323-8, 63594-5 ####[facility] LABIA [id number] [facility] [address] [address] [place] HbA1c (Bld)on 10-29-2024 Average glucose Estimated from glycated hemoglobin (Bld) [Mass/Vol] 140 mg/dL Normal [facility] Comment on above: Order Comment: Chirag devi Type: BLOOD SPECIMENOrdering Facility: [facility] Address: [address] [place] [address] Result Comment: eAG: (Estimated average glucose) is a calculated value from HgbA1c and is construction sales representative of the average blood glucose level in the last 2-3 month period. Performed By: #### 5 5454-3 ####[facility] LABIA [id number] [facility] [place] [id number] [place] HbA1c (Bld) [Mass fraction] 6.5 % High 4.3-5.6 [facility] Comment on above: Order Comment: Chirag devi Type: BLOOD SPECIMENOrdering Facility: [facility] Address: [address] [place] [address] Result Comment: Felipe [place] Diabetes Association guidelines indicate that patients with HgbA1c in the range 5.7-6.4% are at increased risk for development of diabetes, and intervention by lifestyle modification may be beneficial. HgbA1c greater or equal to 6.5% is considered diagnostic of diabetes. Performed By: #### 5 5454-3 ####[facility] LABCLIA [id number] [place] [address] [place] Lipid 1996 panelon 5 Cholesterol [Mass/Vol] 172 mg/dL Normal <200 [facility] Comment on above: Order Comment: Speci men Type: BLOOD SPECIMENOrdering Facility: [facility] Address: [address] [place] [address] Result Comment: <200 mg/dL, Desirable 200-239 mg/dL, Borderline high >239 mg/dL, High Performed By: #### 2 4323-8, 34105-8 ####[facility] LABIA [id number] [address] Cholesterol in HDL [Mass/Vol] 40 mg/dL Normal >39 [facility] Comment on above: Order Comment: Speci men Type: BLOOD SPECIMENOrdering Facility: [facility] Address: [address] [place] [address] Result Comment: 40-5 9 mg/dL, Acceptable >59 mg/dL, High: Negative risk factor for coronary heart disease <40 mg/dL, Low: Positive risk factor for coronary heart disease Performed By: #### 2 4323-8, 13956-8 ####[facility] LABIA [id number] [address] [facility] Cholesterol in LDL [Mass/Vol] 99 mg/dL Normal <100 [facility] Comment on above: Order Comment: Speci men Type: BLOOD SPECIMENOrdering Facility: [facility] Address: [address] [place] [address] Result Comment: <100 mg/dL, Optimal 100-129 mg/dL, Near optimal/above optimal 130-159 mg/dL, Borderline high 160-189 mg/dL, High >189 mg/dL, Very high Secondary prevention optimal LDL Cholesterol levels are recommended to be <70 mg/dL LDL cholesterol is calculated using the Bar[place]-NIH equation. Performed By: #### 2 43238, 52751-8 ####[facility] LABCLIA [id number] [address] [address] [place] Cholesterol in LDL/Cholesterol in HDL [Mass ratio] 2.48 {ratio} Normal <2.54 [facility] Comment on above: Order Comment: Speci men Type: BLOOD SPECIMENOrdering Facility: [facility] Address: [address] [place] [address] Result Comment: Rustye leslie: 1. National Cholesterol Education Program ATP III Guideline At-A-Glance Quick Desk Reference: National Heart, Lung, and Blood [place]. National Institutes of Health. 2001: NIH Publication No. 01-3305. 2. An International Atherosclerosis Society position paper: global recommendations for the management of dyslipidemia: executive summary, Atherosclerosis. 2014: 232(2):410-413. Performed By: #### 2 4323-8, ####[facility] LABCLIA [id number] [place] [address] [place] Cholesterol in VLDL [Mass/Vol] 31 mg/dL High <30 [facility] Comment on above: Order Comment: Speci men Type: BLOOD SPECIMENOrdering Facility: [facility] Address: [address] [place] [address] Performed By: #### 2 4323-8, ####[facility] LABCLIA [id number] [place] [address] [place] Cholesterol non HDL [Mass/Vol] 132 mg/dL High <130 [facility] Comment on above: Order Comment: Speci men Type: BLOOD SPECIMENOrdering Facility: [facility] Address: [address] [place] [address] Result Comment: <130 mg/dL, Optimal 130-159 mg/dL, Near optimal/above optimal 160-189 mg/dL, Borderline high 190-219 mg/dL, High >219 mg/dL, Very high Secondary prevention optimal non HDL Cholesterol levels are recommended to be <100 mg/dL Performed By: #### 2 4323-8, ####[facility] LABIA [id number] [place] [address] [place] Cholesterol.total/Saira sterol in HDL [Mass ratio] 4.30 {ratio} Normal <5.10 [facility] Comment on above: Order Comment: Speci men Type: BLOOD SPECIMENOrdering Facility: [facility] Address: [address] [place] [address] Performed By: #### 2 4323-8, 66732-1 ####[facility] LABIA [id number] [address] [place] FASTING TIME 12 hrs Normal [facility] Comment on above: Order Comment: Speci men Type: BLOOD SPECIMENOrdering Facility: [facility] Address: [address] [place] [address] Performed By: #### 2 4323-8, 97077-0 ####[facility] LABIA [id number] [address] [place] Triglyceride [Mass/Vol] 192 mg/dL High <150 [facility] Comment on above: Order Comment: Speci men Type: BLOOD SPECIMENOrdering Facility: [facility] Address: [address] [place] [address] Result Comment: <150 mg/dL, Normal 150-199 mg/dL, Borderline high 200-499 mg/dL, High >499 mg/dL, Very high Performed By: #### 2 4323-8, 01560-5 ####[facility] LABIA [id number] [address] [place] CNOVon 10-01-2024 CNOV Office Visit (PODIWS ) CARLOS [id number]) 1955 F Date Time Provider Department 10/01/24 9:45 AM [facility]EENAKSHI [facility] During your visit today, we recorded the following information about you: Bettina Darnell LPN 10/01/2024 10:01 AM Signed AMB ROOMING INTAKE FLOWSHEET DATA Pain Pain Level: 9 Pain Location: Toe Description: Throbbing, Stabbing, Sore Duration Amount of Time: 3 Duration Units: Months Frequency: Continuous Intervention/Comfort measure: Reposition, Relaxation Patient presents with: Right Foot - Diabetic Foot Care, New Left Foot - Diabetic Foot Care, New, Mass Left Great Toe - New, Ingrown Toenail, Pain NAWAF Agrawal Matthew 10/01/2024 10:01 AM Signed Diabetes Foot Care Instructions When you have diabetes, proper foot care is very important. Poor foot care may lead to amputation of a foot or leg. As a person with diabetes, you are more vulnerable to foot problems, because diabetes can damage your nerves and reduce blood flow to your feet. Here are some diabetes foot care tips to follow: Wash and Dry Your Feet Daily Use mild soaps Use warm water Pat your skin dry; do not rub. Thoroughly dry your feet. After washing, use lotion on your feet to prevent cracking. Do not put lotion between your toes. Examine Your Feet Each Day Check the tops and bottoms of your feet. Have someone else look at your feet if you cannot see them. Check for dry, cracked skin. Look for blisters, cuts, scratches, or other sores. Check for redness, increased warmth, or tenderness when touching any area of your feet. Check for ingrown toenails, corns, and calluses. If you get a blister or sore from your shoes, do not "pop" it. Apply a bandage and wear a different pair of shoes. Take Care of Your Toenails Cut toenails after bathing, when they are soft. Cut toenails straight across and smooth with a nail file. Avoid cutting into the corners of toes. Do not cut cuticles. If you have neuropathy (or decreased sensation in your feet) a high school academic coach should always cut your toenails. Be Careful When Exercising Walk and exercise in comfortable shoes. Do not exercise when you have open sores on your feet. Protect Your Feet With Shoes and Socks Never go barefoot. Always protect your feet by wearing shoes or hard-soled slippers or footwear. Avoid shoes with high heels and pointed toes. Avoid shoes that expose your toes or heels (such as open-toed shoes or sandals). These types of shoes increase your risk for injury and potential infections. Try on new footwear with the type of socks you usually wear. Do not wear new shoes for more than an hour at a time. Change your socks daily. Look and feel inside your shoes before putting them on to make sure there are no foreign objects or rough areas. Avoid tight socks. Wear natural-fiber socks (cotton, wool, or a cotton-wool blend). Wear special shoes if your health care provider recommends them. Wear shoes/boots that will protect your feet from various weather conditions (cold, moisture, etc.). Make sure your shoes fit properly. If you have neuropathy (nerve damage), you may not notice that your shoes are too tight. Perform the "footwear test" described below. Footwear Test Use this simple test to see if your shoes fit correctly: Stand on a piece of paper. (Make sure you are standing and not sitting, because your foot changes shape when you stand.) Trace the outline of your foot. Trace the outline of your shoe. Compare the tracings: Is the shoe too narrow? Is your foot crammed into the shoe? The shoe should be at least 1/2 inch longer than your longest toe and as wide as your foot. Proper Shoe Choices The following types of shoes are best for people with diabetes Closed toes and heels Leather uppers without a seam inside At least 1/2 inch extra space at the end of your longest toe Inside of shoe should be soft with no rough areas Outer sole should be made of stiff material Shoes should be at least as wide as your feet Tips for Foot Care in Diabetes Don't wait to treat a minor foot problem if you have diabetes. Follow your health care provider's guidelines and first aid guidelines. Report foot injuries and infections to your health care provider immediately. Check water temperature with your elbow, not your foot. Do not use a heating pad on your feet. Do not cross your legs. Do not self-treat your corns, calluses, or other foot problems. Go to your health care provider or high school academic coach to treat these conditions. Meenakshi Hamm 10/01/2024 10:01 AM Signed Leo Woodson is a 69-year-old female with a history of diabetes and neuropathy, presenting for left hallux pain. Left Hallux Pain: - Severe pain in the left hallux, particularly the toenail, x3-4 months. - Pain exacerbated by pressure from shoes; (more content not included)... Normal [facility] CNPNon 10-01-2024 CNPN Telephone (FAMPWS) COVARRUBIASCARLOS Jorge A ([id number]) 1955 F Date Time Provider Department 10/01/24 [facility] During your visit today, we recorded the following information about you: Aida Guerrero LPN 10/01/2024 11:11 AM Signed Pt is requesting a rx for handicap placard. Pt is asking if there is a place to put "indefinitely" on how long placard is needed. Pt reports this last rx in a year. Mail rx to home. Pt also has an appt 10/31/24 and is asking if labs are needed. Last labs were 04/16/25. Please review and advise. NAWAF Manley Bernadette, PA-C 10/02/2024 10:48 AM Signed Please let patient know that her last handicapped parking permit letter was dated for expiration 10/03/23 + 24 months, so should still be good. I did order fasting labs that can be completed prior to her upcoming appointment. UMESH Brenner Kathryn, MA 10/02/2024 1:05 PM Signed Message left for pt to call back. SUZANNE Mortensen Sherrie, RN 10/02/2024 4:00 PM Signed Patient returned call and given provider's message below and patient verbalized understanding. Vern Hemphill RN Allergies As of Date: 10/01/2024 Noted Allergy Reaction AUGMENTIN (AMOXICILLIN-POT CLAVUL*04/25/2018 8 - GI Upset Comments: Nausea, vomiting BIAXIN (CLARITHROMYCIN) 03/27/2007 8 - GI Upset Comments: Metallic taste; can tolerate Zpak BYETTA (EXENATIDE) 07/25/2006 5 - Intolerance Comments: GI upset GLUCOPHAGE (METFORMIN) 07/25/2006 5 - Intolerance Comments: GI upset IODINE 01/16/2004 7 - Swelling Comments: myleogram dye LATEX 09/25/2014 16 - Unknown OMNICEF (CEFDINIR) 04/25/2018 8 - GI Upset Comments: Nausea, vomiting Date Reviewed: 10/01/2024 Reviewed by: Bettina Darnell LPN - Fully Assessed Reason for Visit: handicap placard [Other] Lab Orders [1688] Primary Visit Diagnosis:Vitamin D deficiency [E55.9] Other Visit Diagnoses:Mixed hyperlipidemia [E78.2] DM (diabetes mellitus), 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 Take 1200mg at bedtime. - glimepiride (AMARYL) 2 mg tablet Take 1 tablet by mouth daily with breakfast. - atorvastatin (LIPITOR) 40 mg tablet Take 1 tablet by mouth once daily. - lisinopril (ZESTRIL) 20 mg tablet Take 1.5 tablets by mouth once daily. - omeprazole (PRILOSEC) 40 mg capsule Take 1 capsule by mouth two times a day. - traZODone (DESYREL) 100 mg tablet Take 2 tablets by mouth daily at bedtime. - sertraline (ZOLOFT) 50 mg tablet Take 1 tablet by mouth once daily. - fluticasone (FLONASE) 50 mcg/actuation nasal spray Use 2 Sprays in each nostril once daily. Rinse mouth after use. - triamcinolone acetonide (KENALOG) 0.1 % cream Apply 1 application to affected area three times a day. Apply sparingly to area for rash/itching. - gabapentin (NEURONTIN) 300 mg capsule Take 1 tablet by mouth in the morning and afternoon. Take 4 tablets at bedtime. - ondansetron orally disintegrating (ZOFRAN ODT) 4 mg disintegrating tablet Take 1 tablet by mouth every 8 hours as needed for nausea/vomiting. - Blood-Glucose Meter monitoring kit Test blood sugar(s) 2 times daily. Glucose Meter of Choice - Kit - Dx: Type 2 DM - Uncontrolled E11.65 - blood sugar diagnostic (BLOOD GLUCOSE TEST) test strip Test blood sugar(s) 2 times daily. Dx: Type 2 DM - Uncontrolled E11.65 Insulin: Yes - Insulin Syringe-Needle U-100 (BD INSULIN SYRINGE UF) 0.5 mL 30 gauge x 1/2" inject with insulin Four times a day with each meal and at bedtime as directed - blood sugar diagnostic (BLOOD GLUCOSE TEST) test strip Test blood sugar(s) 2 times daily. Dx: Type 2 DM - Uncontrolled . Insulin: Yes - ACCU-CHEK GUIDE GLUCOSE METER USE DIRECTED - Blood-Glucose Meter monitoring kit Glucose Meter of Choice - Kit - Dx: Type 2 DM - Uncontrolled E11.65 - insulin regular, human (NOVOLIN R REGULAR U-100 INSULN INJECTION) by INJECTION(UNSPECIFIED PARENTERAL ROUTES) route. 34 units in the Am - insulin NPH injection (HumuLIN N,NovoLIN N) 35 units in the Am 45 units in the PM - Lancets lancets Test blood sugar(s) BID times daily. Dx: Type 2 DM - Uncontrolled E11.65 Insulin: Yes - aspirin, enteric coated (ECOTRIN LOW STRENGTH) 81 mg EC tablet Take 1 tablet by mouth once daily. Problem List As Of Date 10/01/2024 Noted Resolved Open wound of other (more content not included)... Normal [facility] CNOVon 08-06-2024 CNOV Office Visit (UCWSTR ) CARLOS COVARRUBIAS ([id number]) 1955 F Date Time Provider Department 08/06/24 5:00 PM JULISSA COULTER [facility] During your visit today, we recorded the following information about you: Temperature Pulse Respiration Blood pressure 99.1 degrees 81/minute 16/minute 144/78 Weight 101 kg Julissa Coulter, ANNELISE.CLOTH STOCK SORTER 08/06/2024 5:32 PM Signed Subjective Cough Associated symptoms include headaches and shortness of breath. Pertinent negatives include no chest pain, no chills, no ear pain, no sore throat and no myalgias. Carlos Covarrubias is a 68 year old female who presents with cough, chest congestion, headache, sinus pressure for the past 4 days. Started with a slight sore throat which improved. She feels short of breath. States she feels like her head is going to explode when she coughs or bends over. She took ibuprofen at home for symptoms. Review of Systems Constitutional: Negative for chills, fever and malaise/fatigue. HENT: Positive for congestion. Negative for ear pain and sore throat. Respiratory: Positive for cough, sputum production and shortness of breath. Cardiovascular: Negative for chest pain. Gastrointestinal: Positive for nausea. Negative for diarrhea and vomiting. Musculoskeletal: Negative for myalgias. Neurological: Positive for headaches. BP 144/78 Pulse 81 Temp 37.3 ?C (99.1 ?F) (Tympanic) Resp 16 Wt 101 kg (222 lb 10.6 oz) SpO2 96% BMI 34.54 kg/m? 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 08/07/2011 Seborrheic Keratosis 10/23/2010 Skin tag 08/07/2011 Tobacco abuse 07/13/2013 Trigger finger b/l hands, has had surgeries Type II or unspecified type diabetes mellitus without mention of complication, not stated as uncontrolled Unspecified hereditary and idiopathic peripheral neuropathy PAST SURGICAL HISTORY Procedure Laterality Date CHOLECYSTECTOMY HX 1994 Cholecystectomy, laparoscopic COLONOSCOPY 02/19/2015 ESOPHAGOGASTRODUODENOS COPY TRANSORAL DIAGNOSTIC 03/28/2013 EGD ESOPHAGOGASTRODUODENOS COPY TRANSORAL DIAGNOSTIC 02/23/2017 EGD PAST SURGICAL HISTORY OF 1974 LEANDRO PAST SURGICAL HISTORY OF 1980 Bilateral salpingoophorectomy PAST SURGICAL HISTORY OF 1986 Lumbar laminectomy PAST SURGICAL HISTORY OF 2002- multiple right partial clavicle resection and first rib resection- septic arthritis PAST SURGICAL HISTORY OF 07/2016 back surgery Lumbar/ thoracic ALLERGIES Augmentin [Amoxicillin-Pot Clavulanate], Biaxin [Clarithromycin], Byetta [Exenatide], Glucophage [Metformin], Iodine, Latex, and Omnicef [Cefdinir] MEDICATIONS triamcinolone acetonide (KENALOG) 0.1 % cream Apply 1 application to affected area three times a day. Apply sparingly to area for rash/itching. gabapentin (NEURONTIN) 300 mg capsule Take 1 tablet by mouth in the morning and afternoon. Take 4 tablets at bedtime. gabapentin (NEURONTIN) 300 mg capsule Take 300mg by mouth in the morning and afternoon. Take 1200mg at bedtime. ondansetron orally disintegrating (ZOFRAN ODT) 4 mg disintegrating tablet Take 1 tablet by mouth every 8 hours as needed for nausea/vomiting. Blood-Glucose Meter monitoring kit Test blood sugar(s) 2 times daily. Glucose Meter of Choice - Kit - Dx: Type 2 DM - Uncontrolled E11.65 blood sugar diagnostic (BLOOD GLUCOSE TEST) test strip Test blood sugar(s) 2 times daily. Dx: Type 2 DM - Uncontrolled E11.65 Insulin: Yes omeprazole (PRILOSEC) 40 mg capsule Take 1 capsule by mouth two times a day. atorvastatin (LIPITOR) 40 mg tablet Take 1 tablet by mouth once daily. glimepiride (AMARYL) 2 mg tablet Take 1 tablet (more content not included)... Normal [facility] XR CHEST 2V FRONTAL/LATon XR CHEST 2V FRONTAL/LAT * * *Final Repor t* * * DATE OF EXAM: Aug 06 2024 5:09PM WOX [id number] - XR CHEST 2V FRONTAL/LAT / PROCEDURE REASON: Acute cough * * * * Physician Interpretation * * * * EXAMINATION: CHEST RADIOGRAPH (2 VIEW FRONTAL and LATERAL) CLINICAL HISTORY: Acute cough MQ: XC2_6 EXAM DATE/TIME: 08/06/2024 5:09 PM COMPARISON: 08/26/2023 RESULT: Lines, tubes, and devices: None. Lungs and pleura: No consolidation. No lung mass. No pleural effusion. No pneumothorax. Cardiomediastinal silhouette: Normal cardiomediastinal silhouette. Bones and soft tissues: Stable findings of resection of the medial aspect of the RIGHT clavicle. IMPRESSION: No acute radiographic abnormality. [employer]: [employer] Transcribe Date/Time: Aug 06 2024 5:12P Dictated by : YAW KANG MD This examination was interpreted and the report reviewed and electronically signed by: YAW KANG MD on Aug 06 2024 5:13PM EST [id number] Normal [facility] XR Chest PA and Lateralon Radiology Study observation (narrative) [place] IMPRESSION: No acute radiographic abnormality. [employer]: RIAN Transcribe Date/Time: Aug 06 2024 5:12P Dictated by : YAW KANG MD This examination was interpreted and the report reviewed and electronically signed by: YAW KANG MD on Aug 06 2024 5:13PM [facility] DIVISION OF RADIOLOGY * * *Final Report* * * DATE OF EXAM: Aug 06 2024 5:09PM WOX [id number] - XR CHEST 2V FRONTAL/LAT / PROCEDURE REASON: Acute cough * * * * Physician Interpretation * * * * EXAMINATION: CHEST RADIOGRAPH (2 VIEW FRONTAL & LATERAL) CLINICAL HISTORY: Acute cough MQ: XC2_6 EXAM DATE/TIME: 08/06/2024 5:09 PM COMPARISON: 08/26/2023 RESULT: Lines, tubes, and devices: None. Lungs and pleura: No consolidation. No lung mass. No pleural effusion. No pneumothorax. Cardiomediastinal silhouette: Normal cardiomediastinal silhouette. Bones and soft tissues: Stable findings of resection of the medial aspect of the RIGHT clavicle. DIVISION OF RADIOLOGY Provider, [facility] - 08/06/2024 * * *Final Report* * * DATE OF EXAM: Aug 06 2024 5:09PM WOX [id number] - XR CHEST 2V FRONTAL/LAT / PROCEDURE REASON: Acute cough * * * * Physician Interpretation * * * * EXAMINATION: CHEST RADIOGRAPH (2 VIEW FRONTAL & LATERAL) CLINICAL HISTORY: Acute cough MQ: XC2_6 EXAM DATE/TIME: 08/06/2024 5:09 PM COMPARISON: 08/26/2023 RESULT: Lines, tubes, and devices: None. Lungs and pleura: No consolidation. No lung mass. No pleural effusion. No pneumothorax. Cardiomediastinal silhouette: Normal cardiomediastinal silhouette. Bones and soft tissues: Stable findings of resection of the medial aspect of the RIGHT clavicle. IMPRESSION IMPRESSION: No acute radiographic abnormality. [employer]: [employer] Transcribe Date/Time: Aug 06 2024 5:12P Dictated by : YAW KANG MD This examination was interpreted and the report reviewed and electronically signed by: YAW KANG MD on Aug 06 2024 5:13PM EST [facility] XR Chest PA and LateralOrder ed By: [facility] Provider on 08-06-2024 [facility] CNOVon 07-31-2024 CNOV Office Visit (UCWSTR ) CARLOS COVARRUBIAS ([id number]) 1955 F Date Time Provider Department 07/31/24 5:30 PM ELIZABETH DE PAZ [facility] During your visit today, we recorded the following information about you: Temperature Pulse Respiration Blood pressure 97.5 degrees 70/minute 16/minute 128/84 Weight 100.5 kg Elizabeth De Paz APRN.CLOTH STOCK SORTER 07/31/2024 6:02 PM Signed Subjective The history is provided by the patient. No book agent was used. HPI Carlos Covarrubias is a 68 year old female who presents today for CC of itching rash on bilateral upper legs this started 7 days ago. The patients reports no new exposures, no recent contact with unusual or new material, no recent change in detergents, soap, or shampoo, no other family members with the same rash, and no new medications. The rash is discribed as Erythema, slightly raised Past treatments - hydrocortisone cream without relief. Does the patient have a personal history of: Seasonal allergies: no Recent travel: no Recent infections: no Beginning a new medication: no Symptoms are triggered by: nothing Denies any - appetite change, weight change, fever, chills, malaise, and fatigue BP 128/84 Pulse 70 Temp 36.4 ?C (97.5 ?F) (Tympanic) Resp 16 Wt 100.5 kg (221 lb 9 oz) SpO2 98% BMI 34.37 kg/m? Social History Tobacco Use Smoking status: Former Current packs/day: 0.00 Average packs/day: 0.5 packs/day for 51.4 years (25.7 ttl pk-yrs) Types: Cigarettes Start date: 03/29/1967 Quit date: 08/18/2018 Years since quittin.9 Smokeless tobacco: Never Vaping Use Vaping status: Never Used Substance Use Topics Alcohol use: No Drug use: No PAST MEDICAL HISTORY Diagnosis Date ASCVD (arteriosclerotic cardiovascular disease) Atherosclerosis of left carotid artery 06/2013 Atherosclerosis of right carotid artery 06/2013 DDD (degenerative disc disease), cervical chronic neck pain Depressive disorder, not elsewhere classified Esophageal reflux GRANULOMA ANNULARE///ERYTHEMATOU S COND NEC 05/03/2007 History of echocardiogram 10/06/2020 @[facility] 60%, aortic sclerosis, mild aortic valve insufficiency History of exercise stress test 10/07/2020 @[facility], EF estimation greater than 70% History of nuclear stress test 10/07/2020 @[facility] by Dr. 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 08/07/2011 Seborrheic Keratosis 10/23/2010 Skin tag 08/07/2011 Tobacco abuse 07/13/2013 Trigger finger b/l hands, has had surgeries Type II or unspecified type diabetes mellitus without mention of complication, not stated as uncontrolled Unspecified hereditary and idiopathic peripheral neuropathy I have confirmed and edited as necessary, the [facility] Review of Systems Constitutional: Negative for chills and fever. Musculoskeletal: Negative for joint pain and myalgias. Skin: Positive for itching and rash. All other systems reviewed and are negative. Objective Physical Exam Vitals and nursing note reviewed. Pulmonary: Effort: Pulmonary effort is normal. Skin: General: Skin is warm and dry. Findings: Erythema and rash present. Rash is macular. Comments: Skin: puritic circumscribed raised erythematous plaques with central clearing on marked areas Neurological: Mental Status: She is alert and oriented to person, place, and time. Psychiatric: Mood and Affect: Affect normal. ASSESSMENT/PLAN: 1. Rash - ICD9: 782.1, ICD10: R21 Appears to be urticarial Triamcinolone Zyrtec 10 mg twice a day Benadryl Mild soap, emollient cream Diagnosis and treatment plan were discussed and questions were answered to the patient's satisfaction. Pt acknowledged understanding of concepts and follow up plan. Specific signs and symptoms that would indicate the need for higher level of care were discussed in detail warranting prompt ER evaluation. Elizabeth De Paz APRN.Elizabeth Puente APRN.ROYA 07/31/2024 5:41 PM Addendum Benadryl 25 mg twice a day Zyrtec 10 mg By mouth twice a day until gone - up to a week. Triamcinolone cream as ordered 2-3 times a day as needed - Decrease use of soap, especially those containing coloring or perfumes. -Avoid fabric softener and/or dryer sheets. -Moisturize daily with Cetaphil, Cere've, vaniply, or (more content not included)... Normal [facility] 07-31-2024 [facility] Telephone (INTMWS) CARLOS COVARRUBIAS ([id number]) 1955 F Date Time Provider Department 07/31/24 EL DRIVER INTWS During your visit today, we recorded the following information about you: Sonal Payne, NAWAF 07/31/2024 3:43 PM Signed Carlos is calling in for an appointment, has rash that itches, perez on bilateral legs, she has tried hydrocortisone cream with no relief, taken Benadryl, get worse toward evening. Patient [facility] to be [facility]. Sonal Payne LPN Allergies As of Date: 07/31/2024 Noted Allergy Reaction AUGMENTIN (AMOXICILLIN-POT CLAVUL*04/25/2018 8 - GI Upset Comments: Nausea, vomiting BIAXIN (CLARITHROMYCIN) 03/27/2007 8 - GI Upset Comments: Metallic taste; can tolerate Zpak BYETTA (EXENATIDE) 07/25/2006 5 - Intolerance Comments: GI upset GLUCOPHAGE (METFORMIN) 07/25/2006 5 - Intolerance Comments: GI upset IODINE 01/16/2004 7 - Swelling Comments: myleogram dye LATEX 09/25/2014 16 - Unknown OMNICEF (CEFDINIR) 04/25/2018 8 - GI Upset Comments: Nausea, vomiting Date Reviewed: 06/04/2024 Reviewed by: Alysha Sol APRN.CLOTH STOCK SORTER - Fully Assessed Reason for Visit: Rash [Other] Prescriptions as of 07/31/2024 - gabapentin (NEURONTIN) 300 mg capsule Take 1 tablet by mouth in the morning and afternoon. Take 4 tablets at bedtime. - gabapentin (NEURONTIN) 300 mg capsule Take 300mg by mouth in the morning and afternoon. Take 1200mg at bedtime. - ondansetron orally disintegrating (ZOFRAN ODT) 4 mg disintegrating tablet Take 1 tablet by mouth every 8 hours as needed for nausea/vomiting. - Blood-Glucose Meter monitoring kit Test blood sugar(s) 2 times daily. Glucose Meter of Choice - Kit - Dx: Type 2 DM - Uncontrolled E11.65 - blood sugar diagnostic (BLOOD GLUCOSE TEST) test strip Test blood sugar(s) 2 times daily. Dx: Type 2 DM - Uncontrolled E11.65 Insulin: Yes - omeprazole (PRILOSEC) 40 mg capsule Take 1 capsule by mouth two times a day. - atorvastatin (LIPITOR) 40 mg tablet Take 1 tablet by mouth once daily. - glimepiride (AMARYL) 2 mg tablet Take 1 tablet by mouth daily with breakfast. - lisinopril (ZESTRIL) 20 mg tablet Take 1.5 tablets by mouth once daily. - sertraline (ZOLOFT) 50 mg tablet Take 1 tablet by mouth once daily. - traZODone (DESYREL) 100 mg tablet Take 2 tablets by mouth daily at bedtime. - fluticasone (FLONASE) 50 mcg/actuation nasal spray Use 2 Sprays in each nostril once daily. Rinse mouth after use. - Insulin Syringe-Needle U-100 (BD INSULIN SYRINGE UF) 0.5 mL 30 gauge x 1/2" inject with insulin Four times a day with each meal and at bedtime as directed - blood sugar diagnostic (BLOOD GLUCOSE TEST) test strip Test blood sugar(s) 2 times daily. Dx: Type 2 DM - Uncontrolled E11.65 Insulin: Yes - ACCU-CHEK GUIDE GLUCOSE METER USE DIRECTED - Blood-Glucose Meter monitoring kit Glucose Meter of Choice - Kit - Dx: Type 2 DM - Uncontrolled E11.65 - insulin regular, human (NOVOLIN R REGULAR U-100 INSULN INJECTION) by INJECTION(UNSPECIFIED PARENTERAL ROUTES) route. 34 units in the Am - insulin NPH injection (HumuLIN N,NovoLIN N) 35 units in the Am 45 units in the PM - Lancets lancets Test blood sugar(s) BID times daily. Dx: Type 2 DM - Uncontrolled E11.65 Insulin: Yes - aspirin, enteric coated (ECOTRIN LOW STRENGTH) 81 mg EC tablet Take 1 tablet by mouth once daily. 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*05/03/2007 01/04/2017 Vitamin D deficiency [E55.9] 05/05/2007 Seborrheic Keratosis [L82.1] 10/23/2010 01/04/2017 Plantar wart of left foot: plantar 1st MTP [B07*08/07/2011 01/04/2017 Intradermal Nevus: Melanocytic vs Neuroid Nevus*08/07/2011 01/04/2017 R/O Neurofibroma: R mid lower buttock [D36.10] 08/07/2011 01/04/2017 R/O Nevus lipomatosus cutaneous superficialis: *08/07/2011 01/04/2017 Skin tag [L91.8] 08/07/2011 01/04/2017 Oral lesion: mid post hard palate [K13.70] 08/07/2011 01/04/2017 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 Normal [facility]20[facility] CARLOS COVARRUBIAS ([id number]) 1955 F Date Time Provider Department 07/26/24 EL DRIVER [facility] During your visit today, we recorded the following information about you: Cathleen Hemphill RN 07/26/2024 4:50 PM Signed Patient states her gabapentin prescription will not be delivered to her until 07/29 or 07/30/24 and she is out of the medication. This nurse contacted [facility] delivery and verified this. Patient asking if provider can send short term supply prescription to [facility]. 4-day prescription pended for review. Please call patient with update. ELIAZAR Tillman Alyson Taylor, APRN.CLOTH STOCK SORTER 07/27/2024 7:10 AM Signed The following approved medication requests have been transmitted electronically. Requested Prescriptions Signed Prescriptions Disp Refills gabapentin (NEURONTIN) 300 mg capsule 24 capsule 0 Sig: Take 1 tablet by mouth in the morning and afternoon. Take 4 tablets at bedtime. Authorizing Provider: ALYSHA SOL APRN.CNP DetMehreen Ruiz NAWAF 07/27/2024 9:12 AM Signed Pt. informed Allergies As of Date: 07/26/2024 Noted Allergy Reaction AUGMENTIN (AMOXICILLIN-POT CLAVUL*04/25/2018 8 - GI Upset Comments: Nausea, vomiting BIAXIN (CLARITHROMYCIN) 03/27/2007 8 - GI Upset Comments: Metallic taste; can tolerate Zpak BYETTA (EXENATIDE) 07/25/2006 5 - Intolerance Comments: GI upset GLUCOPHAGE (METFORMIN) 07/25/2006 5 - Intolerance Comments: GI upset IODINE 01/16/2004 7 - Swelling Comments: myleogram dye LATEX 09/25/2014 16 - Unknown OMNICEF (CEFDINIR) 04/25/2018 8 - GI Upset Comments: Nausea, vomiting Date Reviewed: 06/04/2024 Reviewed by: Alysha Sol APRN.CNP - Fully Assessed Reason for Visit: Patient Request [[id number]] Visit Diagnosis: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 Take 4 tablets at bedtime.Disp: 24 capsuleRfl: 0 Prescriptions as of 07/27/2024 - gabapentin (NEURONTIN) 300 mg capsule Take 1 tablet by mouth in the morning and afternoon. Take 4 tablets at bedtime. - gabapentin (NEURONTIN) 300 mg capsule Take 300mg by mouth in the morning and afternoon. Take 1200mg at bedtime. - ondansetron orally disintegrating (ZOFRAN ODT) 4 mg disintegrating tablet Take 1 tablet by mouth every 8 hours as needed for nausea/vomiting. - Blood-Glucose Meter monitoring kit Test blood sugar(s) 2 times daily. Glucose Meter of Choice - Kit - Dx: Type 2 DM - Uncontrolled E11.65 - blood sugar diagnostic (BLOOD GLUCOSE TEST) test strip Test blood sugar(s) 2 times daily. Dx: Type 2 DM - Uncontrolled Insulin: Yes - omeprazole (PRILOSEC) 40 mg capsule Take 1 capsule by mouth two times a day. - atorvastatin (LIPITOR) 40 mg tablet Take 1 tablet by mouth once daily. - glimepiride (AMARYL) 2 mg tablet Take 1 tablet by mouth daily with breakfast. - lisinopril (ZESTRIL) 20 mg tablet Take 1.5 tablets by mouth once daily. - sertraline (ZOLOFT) 50 mg tablet Take 1 tablet by mouth once daily. - traZODone (DESYREL) 100 mg tablet Take 2 tablets by mouth daily at bedtime. - fluticasone (FLONASE) 50 mcg/actuation nasal spray Use 2 Sprays in each nostril once daily. Rinse mouth after use. - Insulin Syringe-Needle U-100 (BD INSULIN SYRINGE UF) 0.5 mL 30 gauge x 1/2" inject with insulin Four times a day with each meal and at bedtime as directed - blood sugar diagnostic (BLOOD GLUCOSE TEST) test strip Test blood sugar(s) 2 times daily. Dx: Type 2 DM - Uncontrolled Insulin: Yes - ACCU-CHEK GUIDE GLUCOSE METER USE DIRECTED - Blood-Glucose Meter monitoring kit Glucose Meter of Choice - Kit - Dx: Type 2 DM - Uncontrolled - insulin regular, human (NOVOLIN R REGULAR U-100 INSULN INJECTION) by INJECTION(UNSPECIFIED PARENTERAL ROUTES) route. 34 units in the Am - insulin NPH injection (HumuLIN N,NovoLIN N) 35 units in the Am 45 units in the PM - Lancets lancets Test blood sugar(s) BID times daily. Dx: Type 2 DM - Uncontrolled Insulin: Yes - aspirin, enteric coated (ECOTRIN LOW STRENGTH) 81 mg EC tablet Take 1 tablet by mouth once daily. 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 [facility] CARLOS COVARRUBIAS ([id number]) 1955 F Date Time Provider Department 06/06[facility] During your visit today, we recorded the following information about you: Alysha Sol APRN.CLOTH STOCK SORTER 06/06/2024 7:29 AM Signed Please call patient and let her know that US and diag mammogram show area of concern to be a benign lipoma. A lipoma is just a lump of fatty tissue that grows under the skin. These are benign and we normally do not do anything about them unless it is becoming bothersome or painful (then we can send to general surgery for removal). Thank you, Alysha Sol APRN.Tasia Carreon LPN 06/06/2024 10:33 AM Signed Spoke with pt gave information provided. Pt voices understanding. Allergies As of Date: 06/06/2024 Noted Allergy Reaction AUGMENTIN (AMOXICILLIN-POT CLAVUL*04/25/2018 8 - GI Upset Comments: Nausea, vomiting BIAXIN (CLARITHROMYCIN) 03/27/2007 8 - GI Upset Comments: Metallic taste; can tolerate Zpak BYETTA (EXENATIDE) 07/25/2006 5 - Intolerance Comments: GI upset GLUCOPHAGE (METFORMIN) 07/25/2006 5 - Intolerance Comments: GI upset IODINE 01/16/2004 7 - Swelling Comments: myleogram dye LATEX 09/25/2014 16 - Unknown OMNICEF (CEFDINIR) 04/25/2018 8 - GI Upset Comments: Nausea, vomiting Date Reviewed: 06/04/2024 Reviewed by: Alysha Sol APRN.CLOTH STOCK SORTER - Fully Assessed Reason for Visit: Results [95] Prescriptions as of 06/06/2024 - gabapentin (NEURONTIN) 300 mg capsule Take 300mg by mouth in the morning and afternoon. Take 1200mg at bedtime. - gabapentin (NEURONTIN) 300 mg capsule Take 1 tablet by mouth in the morning and afternoon. Take 4 tablets at bedtime. - ondansetron orally disintegrating (ZOFRAN ODT) 4 mg disintegrating tablet Take 1 tablet by mouth every 8 hours as needed for nausea/vomiting. - Blood-Glucose Meter monitoring kit Test blood sugar(s) 2 times daily. Glucose Meter of Choice - Kit - Dx: Type 2 DM - Uncontrolled E11.65 - blood sugar diagnostic (BLOOD GLUCOSE TEST) test strip Test blood sugar(s) 2 times daily. Dx: Type 2 DM - Uncontrolled E11.65 Insulin: Yes - omeprazole (PRILOSEC) 40 mg capsule Take 1 capsule by mouth two times a day. - atorvastatin (LIPITOR) 40 mg tablet Take 1 tablet by mouth once daily. - glimepiride (AMARYL) 2 mg tablet Take 1 tablet by mouth daily with breakfast. - lisinopril (ZESTRIL) 20 mg tablet Take 1.5 tablets by mouth once daily. - sertraline (ZOLOFT) 50 mg tablet Take 1 tablet by mouth once daily. - traZODone (DESYREL) 100 mg tablet Take 2 tablets by mouth daily at bedtime. - fluticasone (FLONASE) 50 mcg/actuation nasal spray Use 2 Sprays in each nostril once daily. Rinse mouth after use. - Insulin Syringe-Needle U-100 (BD INSULIN SYRINGE UF) 0.5 mL 30 gauge x 1/2" inject with insulin Four times a day with each meal and at bedtime as directed - blood sugar diagnostic (BLOOD GLUCOSE TEST) test strip Test blood sugar(s) 2 times daily. Dx: Type 2 DM - Uncontrolled E11.65 Insulin: Yes - ACCU-CHEK GUIDE GLUCOSE METER USE DIRECTED - Blood-Glucose Meter monitoring kit Glucose Meter of Choice - Kit - Dx: Type 2 DM - Uncontrolled E11.65 - insulin regular, human (NOVOLIN R REGULAR U-100 INSULN INJECTION) by INJECTION(UNSPECIFIED PARENTERAL ROUTES) route. 34 units in the Am - insulin NPH injection (HumuLIN N,NovoLIN N) 35 units in the Am 45 units in the PM - Lancets lancets Test blood sugar(s) BID times daily. Dx: Type 2 DM - Uncontrolled E11.65 Insulin: Yes - aspirin, enteric coated (ECOTRIN LOW STRENGTH) 81 mg EC tablet Take 1 tablet by mouth once daily. 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*05/03/2007 01/04/2017 Vitamin D deficiency [E55.9] 05/05/2007 Seborrheic Keratosis [L82.1] 10/23/2010 01/04/2017 Plantar wart of left foot: plantar 1st MTP [B07*08/07/2011 01/04/2017 Intradermal Nevus: Melanocytic vs Neuroid Nevus*08/07/2011 01/04/2017 R/O Neurofibroma: R mid lower buttock [D36.10] 08/07/2011 01/04/2017 R/O Nevus lipomatosus cutaneous superficialis: *08/07/2011 01/04/2017 Skin tag [L91.8] 08/07/2011 01/04/2017 Oral lesion: mid post hard palate [K13.70] 08/07/2011 01/04/2017 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 (more content not included)... Normal [facility] DBT Breast - left diagnostic for implanton 06-05-2024 IMPRESSION: 5.6 cm isoechoic circumscribed lesion in the left axilla corresponds as palpated, most compatible with a benign lipoma. Clinical follow-up recommended. There is no mammographic or sonographic evidence of malignancy. Return to annual screening mammogram is recommended. Annual mammogram will be due in 4 months. BI-RADS Category 2: Benign RISK: Based on the Tyrer-Cuzick (TC) risk assessment model, this patient has a 1.2% lifetime risk of developing breast cancer, meaning they are at average risk for developing breast cancer. However, this is only an estimate based on available history provided on the patient's questionnaire. We encourage all patients to talk with their providers about these results, further recommendations for managing breast health, and appropriate supplemental screening options if the patient has dense breast tissue. Interpreting Radiologist: Kelley Tracey M.D. Electronically signed on: 06/05/2024 [employer]: [employer] Date/Time: Jun 05 2024 9:09A Dictated by: KELLEY TRACEY MD This examination was interpreted and the report reviewed and electronically signed by: KELLEY TRACEY MD on Jun 05 2024 10:16AM [facility] DIVISION OF RADIOLOGY * * *Final Report* * * DATE OF EXAM: Jun 05 2024 9:24AM [facility] 0628 - [facility] DONTE W SUJATHA LT / PROCEDURE REASON: Lump of axillary tail of left breast * * * * Physician Interpretation * * * * RESULT: [facility] [address] [place] [address] #[id number] - [facility] LI[employer] W SUJATHA LT #[id number] - [facility] [employer] BREAST LTD LT HISTORY: Patient is 68 years old and is seen for diagnostic evaluation of area of clinical concern in the left breast. Patient states no personal history of breast cancer. Patient states no personal history of other cancers. COMPARISON STUDIES: The present examination has been compared to prior imaging studies dated 11/29/2016 (mammogram), 12/07/2016 (mammogram), 12/07/2016 (ultrasound), 02/24/2018 (mammogram) and 10/04/2023 (mammogram). MAMMOGRAM TECHNIQUE: The study was acquired using full field digital technology and interpreted from soft copy. Digital Breast Tomosynthesis (DBT) images were obtained and used to assist in the interpretation of this examination. Computer-aided detection was utilized by the radiologist in the interpretation of this examination. MAMMOGRAM FINDINGS: There are scattered areas of fibroglandular density. There is no mammographic findings correspond with the area of palpable concern in the left axilla. No suspicious masses, calcifications or other abnormalities are seen in the left breast. ULTRASOUND TECHNIQUE: Targeted ultrasound of the indicated area was performed. Nuñez scale images were saved. ULTRASOUND FINDINGS: Ultrasound demonstrates an oval parallel lesion with circumscribed margins measuring 5.6 x 1.2 x 3.7 cm in the axillary tail of the left breast. Internal echotexture is isoechoic. Color flow imaging demonstrates vascularity is not present. Findings are most compatible with a lipoma. There are no suspicious findings in the imaged area. DIVISION OF RADIOLOGY Provider, [facility] - 06/05/2024 * * *Final Report* * * DATE OF EXAM: Jun 05 2024 9:24AM W 0628 - [facility] DIAG W SUJATHA LT / PROCEDURE REASON: Lump of axillary tail of left breast * * * * Physician Interpretation * * * * RESULT: [place] [address] #[id number] - [facility] DIAG W SUJATHA LT #[id number] - [facility] US BREAST LTD LT HISTORY: Patient is 68 years old and is seen for diagnostic evaluation of area of clinical concern in the left breast. Patient states no personal history of breast cancer. Patient states no personal history of other cancers. COMPARISON STUDIES: The present examination has been compared to prior imaging studies dated 11/29/2016 (mammogram), 12/07/2016 (mammogram), 12/07/2016 (ultrasound), 02/24/2018 (mammogram) and 10/04/2023 (mammogram). MAMMOGRAM TECHNIQUE: The study was acquired using full field digital technology and interpreted from soft copy. Digital Breast Tomosynthesis (DBT) images were obtained and used to assist in the interpretation of this examination. Computer-aided detection was utilized by the radiologist in the interpretation of this examination. MAMMOGRAM FINDINGS: There are scattered areas of fibroglandular density. There is no mammographic findings correspond with the area of palpable concern in the left axilla. No suspicious masses, calcifications or other abnormalities are seen in the left breast. ULTRASOUND TECHNIQUE: Targeted ultrasound of the indicated area was performed. Nuñez scale images were saved. ULTRASOUND FINDINGS: Ultrasound demonstrates an oval parallel lesion with circumscribed margins measuring 5.6 x 1.2 x 3.7 cm in the axillary tail of the left breast. Internal echotexture is isoechoic. Color flow imaging demonstrates vascularity is not present. Findings are most compatible with a lipoma. There are no suspicious findings in the imaged area. IMPRESSION IMPRESSION: 5.6 cm isoechoic circumscribed lesion in the left axilla corresponds as palpated, most compatible with a benign lipoma. Clinical follow-up recommended. There is no mammographic or sonographic evidence of malignancy. Return to annual screening mammogram is recommended. Annual mammogram will be due in 4 months. BI-RADS Category 2: Benign RISK: Based on the Tyrer-Cuzick (TC) risk assessment model, this patient has a 1.2% lifetime risk of developing breast cancer, meaning they are at average risk for developing breast cancer. However, this is only an estimate based on available history provided on the patient's questionnaire. We encourage all patients to talk with their providers about these results, further recommendations for managing breast health, and appropriate supplemental screening options if the patient has dense breast tissue. Interpreting Radiologist: Kelley Tracey M.D. Electronically signed on: 06/05/2024 [employer]: [employer] Date/Time: Jun 05 2024 9:09A Dictated by: KELLEY TRACEY MD This examination was interpreted and the report reviewed and electronically signed by: KELLEY TRACEY MD on Jun 05 2024 10:16AM [facility] DONTE Hernández SUJATHA LTon 024 [facility] DONTE Hernández SUJATHA LT * * *Final Report* * * DATE OF EXAM: Jun 05 2024 9:24AM [facility] 0628 - [facility] LIZZ[employer]G W SUJATHA LT / PROCEDURE REASON: Lump of axillary tail of left breast * * * * Physician Interpretation * * * * RESULT: [place] [address] [id number] #[id number] - [facility] DIAG W SUJATHA LT #[id number] - [facility] US BREAST LTD LT HISTORY: Patient is 68 years old and is seen for diagnostic evaluation of area of clinical concern in the left breast. Patient states no personal history of breast cancer. Patient states no personal history of other cancers. COMPARISON STUDIES: The present examination has been compared to prior imaging studies dated 11/29/2016 (mammogram), 12/07/2016 (mammogram), 12/07/2016 (ultrasound), 02/24/2018 (mammogram) and 10/04/2023 (mammogram). MAMMOGRAM TECHNIQUE: The study was acquired using full field digital technology and interpreted from soft copy. Digital Breast Tomosynthesis (DBT) images were obtained and used to assist in the interpretation of this examination. Computer-aided detection was utilized by the radiologist in the interpretation of this examination. MAMMOGRAM FINDINGS: There are scattered areas of fibroglandular density. There is no mammographic findings correspond with the area of palpable concern in the left axilla. No suspicious masses, calcifications or other abnormalities are seen in the left breast. ULTRASOUND TECHNIQUE: Targeted ultrasound of the indicated area was performed. Nuñez scale images were saved. ULTRASOUND FINDINGS: Ultrasound demonstrates an oval parallel lesion with circumscribed margins measuring 5.6 x 1.2 x 3.7 cm in the axillary tail of the left breast. Internal echotexture is isoechoic. Color flow imaging demonstrates vascularity is not present. Findings are most compatible with a lipoma. There are no suspicious findings in the imaged area. IMPRESSION: 5.6 cm isoechoic circumscribed lesion in the left axilla corresponds as palpated, most compatible with a benign lipoma. Clinical follow-up recommended. There is no mammographic or sonographic evidence of malignancy. Return to annual screening mammogram is recommended. Annual mammogram will be due in 4 months. BI-RADS Category 2: Benign RISK: Based on the Tyrer-Cuzick (TC) risk assessment model, this patient has a 1.2% lifetime risk of developing breast cancer, meaning they are at average risk for developing breast cancer. However, this is only an estimate based on available history provided on the patient's questionnaire. We encourage all patients to talk with their providers about these results, further recommendations for managing breast health, and appropriate supplemental screening options if the patient has dense breast tissue. Interpreting Radiologist: Kelley Tracey M.D. Electronically signed on: 06/05/2024 [employer]: [employer] Date/Time: Jun 05 2024 9:09A Dictated by: KELLEY TRACEY MD This examination was interpreted and the report reviewed and electronically signed by: KELLEY TRACEY MD on Jun 05 2024 10:16AM EST [id number] Normal [facility] [employer] BREAST LTD LTon 06-05 [facility] [employer] BREAST [employer] LT * * *Final Report* * * DATE OF EXAM: Jun 05 2024 9:57AM [facility] 0593 - [facility] [employer] LT / PROCEDURE REASON: Mass of axillary tail of left breast * * * * Physician Interpretation * * * * [place] [address] #[id number] - [facility] DIAG W SUJATHA LT #[id number] - [facility] [employer] LT HISTORY: Patient is 68 years old and is seen for diagnostic evaluation of area of clinical concern in the left breast. Patient states no personal history of breast cancer. Patient states no personal history of other cancers. COMPARISON STUDIES: The present examination has been compared to prior imaging studies dated 11/29/2016 (mammogram), 12/07/2016 (mammogram), 12/07/2016 (ultrasound), 02/24/2018 (mammogram) and 10/04/2023 (mammogram). MAMMOGRAM TECHNIQUE: The study was acquired using full field digital technology and interpreted from soft copy. Digital Breast Tomosynthesis (DBT) images were obtained and used to assist in the interpretation of this examination. Computer-aided detection was utilized by the radiologist in the interpretation of this examination. MAMMOGRAM FINDINGS: There are scattered areas of fibroglandular density. There is no mammographic findings correspond with the area of palpable concern in the left axilla. No suspicious masses, calcifications or other abnormalities are seen in the left breast. ULTRASOUND TECHNIQUE: Targeted ultrasound of the indicated area was performed. Nuñez scale images were saved. ULTRASOUND FINDINGS: Ultrasound demonstrates an oval parallel lesion with circumscribed margins measuring 5.6 x 1.2 x 3.7 cm in the axillary tail of the left breast. Internal echotexture is isoechoic. Color flow imaging demonstrates vascularity is not present. Findings are most compatible with a lipoma. There are no suspicious findings in the imaged area. IMPRESSION: 5.6 cm isoechoic circumscribed lesion in the left axilla corresponds as palpated, most compatible with a benign lipoma. Clinical follow-up recommended. There is no mammographic or sonographic evidence of malignancy. Return to annual screening mammogram is recommended. Annual mammogram will be due in 4 months. BI-RADS Category 2: Benign RISK: Based on the Tyrer-Cuzick (TC) risk assessment model, this patient has a 1.2% lifetime risk of developing breast cancer, meaning they are at average risk for developing breast cancer. However, this is only an estimate based on available history provided on the patient's questionnaire. We encourage all patients to talk with their providers about these results, further recommendations for managing breast health, and appropriate supplemental screening options if the patient has dense breast tissue. Interpreting Radiologist: Kelley Tracey M.D. Electronically signed on: 06/05/2024 [employer]: [employer] Date/Time: Jun 05 2024 9:46A Dictated by : KELLEY TRACEY MD This examination was interpreted and the report reviewed and electronically signed by: KELLEY TRACEY MD on Jun 05 2024 10:16AM EST [id number] Normal [facility] No Panel InformationOrdered By: [facility] Provider on 06-05-2024 [facility] No Panel Informationon 06-05 Radiology Study observation (narrative) [place] US Breast - left limitedon 1 08-06-2023 IMPRESSION: 5.6 cm isoechoic circumscribed lesion in the left axilla corresponds as palpated, most compatible with a benign lipoma. Clinical follow-up recommended. There is no mammographic or sonographic evidence of malignancy. Return to annual screening mammogram is recommended. Annual mammogram will be due in 4 months. BI-RADS Category 2: Benign RISK: Based on the Tyrer-Cuzick (TC) risk assessment model, this patient has a 1.2% lifetime risk of developing breast cancer, meaning they are at average risk for developing breast cancer. However, this is only an estimate based on available history provided on the patient's questionnaire. We encourage all patients to talk with their providers about these results, further recommendations for managing breast health, and appropriate supplemental screening options if the patient has dense breast tissue. Interpreting Radiologist: Kelley Tracey M.D. Electronically signed on: 06/05/2024 [employer]: [employer] Date/Time: Jun 05 2024 9:46A Dictated by : KELLEY TRACEY MD This examination was interpreted and the report reviewed and electronically signed by: KELLEY TRACEY MD on Jun 05 2024 10:16AM [facility] DIVISION OF RADIOLOGY * * *Final Report* * * DATE OF EXAM: Jun 05 2024 9:57AM U 0593 - [facility] [employer] LT / PROCEDURE REASON: Mass of axillary tail of left breast * * * * Physician Interpretation * * * * [place] [address] #[id number] - [facility] LIZZETTE Betty SUJATHA #[id number] - [facility] [employer] LT HISTORY: Patient is 68 years old and is seen for diagnostic evaluation of area of clinical concern in the left breast. Patient states no personal history of breast cancer. Patient states no personal history of other cancers. COMPARISON STUDIES: The present examination has been compared to prior imaging studies dated 11/29/2016 (mammogram), 12/07/2016 (mammogram), 12/07/2016 (ultrasound), 02/24/2018 (mammogram) and 10/04/2023 (mammogram). MAMMOGRAM TECHNIQUE: The study was acquired using full field digital technology and interpreted from soft copy. Digital Breast Tomosynthesis (DBT) images were obtained and used to assist in the interpretation of this examination. Computer-aided detection was utilized by the radiologist in the interpretation of this examination. MAMMOGRAM FINDINGS: There are scattered areas of fibroglandular density. There is no mammographic findings correspond with the area of palpable concern in the left axilla. No suspicious masses, calcifications or other abnormalities are seen in the left breast. ULTRASOUND TECHNIQUE: Targeted ultrasound of the indicated area was performed. Nuñez scale images were saved. ULTRASOUND FINDINGS: Ultrasound demonstrates an oval parallel lesion with circumscribed margins measuring 5.6 x 1.2 x 3.7 cm in the axillary tail of the left breast. Internal echotexture is isoechoic. Color flow imaging demonstrates vascularity is not present. Findings are most compatible with a lipoma. There are no suspicious findings in the imaged area. DIVISION OF RADIOLOGY Provider, [facility] - 06/05/2024 * * *Final Report* * * DATE OF EXAM: Jun 05 2024 9:57AM [facility] 0593 - [facility] / PROCEDURE REASON: Mass of axillary tail of left breast * * * * Physician Interpretation * * * * [place] [address] #[id number] - [facility] DONTE Hernández SUJATHA LT #[id number] - [facility] HISTORY: Patient is 68 years old and is seen for diagnostic evaluation of area of clinical concern in the left breast. Patient states no personal history of breast cancer. Patient states no personal history of other cancers. COMPARISON STUDIES: The present examination has been compared to prior imaging studies dated 11/29/2016 (mammogram), 12/07/2016 (mammogram), 12/07/2016 (ultrasound), 02/24/2018 (mammogram) and 10/04/2023 (mammogram). MAMMOGRAM TECHNIQUE: The study was acquired using full field digital technology and interpreted from soft copy. Digital Breast Tomosynthesis (DBT) images were obtained and used to assist in the interpretation of this examination. Computer-aided detection was utilized by the radiologist in the interpretation of this examination. MAMMOGRAM FINDINGS: There are scattered areas of fibroglandular density. There is no mammographic findings correspond with the area of palpable concern in the left axilla. No suspicious masses, calcifications or other abnormalities are seen in the left breast. ULTRASOUND TECHNIQUE: Targeted ultrasound of the indicated area was performed. Nuñez scale images were saved. ULTRASOUND FINDINGS: Ultrasound demonstrates an oval parallel lesion with circumscribed margins measuring 5.6 x 1.2 x 3.7 cm in the axillary tail of the left breast. Internal echotexture is isoechoic. Color flow imaging demonstrates vascularity is not present. Findings are most compatible with a lipoma. There are no suspicious findings in the imaged area. IMPRESSION IMPRESSION: 5.6 cm isoechoic circumscribed lesion in the left axilla corresponds as palpated, most compatible with a benign lipoma. Clinical follow-up recommended. There is no mammographic or sonographic evidence of malignancy. Return to annual screening mammogram is recommended. Annual mammogram will be due in 4 months. BI-RADS Category 2: Benign RISK: Based on the Tyrer-Cuzick (TC) risk assessment model, this patient has a 1.2% lifetime risk of developing breast cancer, meaning they are at average risk for developing breast cancer. However, this is only an estimate based on available history provided on the patient's questionnaire. We encourage all patients to talk with their providers about these results, further recommendations for managing breast health, and appropriate supplemental screening options if the patient has dense breast tissue. Interpreting Radiologist: Kelley Tracey M.D. Electronically signed on: 06/05/2024 [employer]: [employer] Date/Time: Jun 05 2024 9:46A Dictated by : KELLEY TRACEY MD This examination was interpreted and the report reviewed and electronically signed by: KELLEY TRACEY MD on Jun 05 2024 10:16AM EST [facility] CNOVon 06-04-2024 CNOV Office Visit (FAMPWS ) CARLOS COVARRUBIAS ([id number]) 1955 F Date Time Provider Department 06/04/24 12:40 PM ALYSHA SOLPWS During your visit today, we recorded the following information about you: Pulse Respiration Blood pressure Weight 66/minute 12/minute 110/50 100.4 kg Alysha Sol, INSPECTOR MATERIAL DISPOSITION.CLOTH STOCK SORTER 06/04/2024 1:00 PM Signed Chief Complaint Patient presents with: lump on back side of auxillia HPI Carlos Covarrubias is a 68 year old female who presents here today for Above Complaints. Carlos is an established patient of Dr. Villa DO. Concerns today... Per nurse triage from 06/01, Tuesday: Patient calls for lump to posterior left axillary. Nurse triage recommends see provider within 3 days. Scheduled for Tuesday06/04/2024 per time patient is able to come in. Care advice reviewed with verbalized understanding. Reason for Disposition [1] Small swelling or lump AND [2] unexplained AND [3] present > 1 week Answer Assessment - Initial Assessment Questions 1. APPEARANCE of SWELLING: Patient reports a lump behind left axillary the size of a golf ball, skin color, no pain, itch. Afebrile. 2. SIZE: Golf ball 3. LOCATION: Posterior to left axillary 4. ONSET: Patient reports several weeks 5. COLOR: Skin color 6. PAIN:- NONE (0): No pain. 7. ITCH: None 8. CAUSE: Patient not certain. Thinks maybe she noticed it shortly after last round of immunizations. 9 OTHER SYMPTOMS: Afebrile" In office today... Pt reports noticing a lump to L axilla and outer portion of breast about 1 month ago. Pt did have COVID and flu shot about 1.5 months ago (one shot in each arm, unknown which one was which). No pain, redness, warmth, or fevers. Pt unsure if she had mammogram screening this past year or not. No other concerns or complaints. Past medical history, appointments, medications, allergies reviewed. 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 08/07/2011 Seborrheic Keratosis 10/23/2010 Skin tag 08/07/2011 Tobacco abuse 07/13/2013 Trigger finger b/l hands, has had surgeries Type II or unspecified type diabetes mellitus without mention of complication, not stated as uncontrolled Unspecified hereditary and idiopathic peripheral neuropathy Previous Surgical History PAST SURGICAL HISTORY Procedure Laterality Date CHOLECYSTECTOMY HX 1994 Cholecystectomy, laparoscopic COLONOSCOPY 02/19/2015 ESOPHAGOGASTRODUODENOS COPY TRANSORAL DIAGNOSTIC 03/28/2013 EGD ESOPHAGOGASTRODUODENOS COPY TRANSORAL DIAGNOSTIC 02/23/2017 EGD PAST SURGICAL HISTORY OF 1974 LEANDRO PAST SURGICAL HISTORY OF 1980 Bilateral salpingoophorectomy PAST SURGICAL HISTORY OF 1986 Lumbar laminectomy PAST SURGICAL HISTORY OF 2002- multiple right partial clavicle resection and first rib resection- septic arthritis PAST SURGICAL HISTORY OF 07/2016 back surgery Lumbar/ thoracic Family History FAMILY HISTORY Problem Relation Age of Onset Diabetes Mother Stroke Mother Coronary Artery Disease Sister Early 40's with finding of ASCVD Coronary Artery Disease Brother 2 brothers diagnosed in their 60's Cancer Brother One brother with brain cancer and another one with tumors "all over his body" Coronary Artery Disease Father ASCVD in his 80's Coronary Artery Disease Brother Cancer Brother Patient Allergies ALLERGIES Allergen Reactions Augmentin [Amoxicil* GI Upset Nausea, vomiting Biaxin [Clarithromy* GI Upset Metallic taste; can tolerate Zpak Byetta [Exenatide] Intolerance GI upset Glucophage [Metform* Intolerance GI upset Iodine Swell (more content not included)... Normal [facility] CNOVon 04-26-2024 CNOV Office Visit (UCWSTR ) CARLOS COVARRUBIAS ([id number]) 1955 F Date Time Provider Department 04/26/24 12:30 PM LILA GOLD [facility] During your visit today, we recorded the following information about you: Temperature Pulse Respiration Blood pressure 98.4 degrees 85/minute 22/minute 156/75 Weight 98.5 kg Lila Gold APRN.CLOTH STOCK SORTER 04/26/2024 12:54 PM Signed Subjective HPI HPI Carlos Covarrubias is a 68 year old female who presents today for CC of cough, congestion, sob. This started 4 days ago. Has tried otc medication for relief. Symptoms are worsened by nothing. Risk factors sick exposures. Hx of copd. .Patient presents with: Cough: Chest congestion, chest pressure., headache, wheeze,burning, green phlegm, SOB, fatigue x 4 days PAST MEDICAL HISTORY Diagnosis Date ASCVD (arteriosclerotic cardiovascular disease) Atherosclerosis of left carotid artery 06/2013 Atherosclerosis of right carotid artery 06/2013 DDD (degenerative disc disease), cervical chronic neck pain Depressive disorder, not elsewhere classified Esophageal reflux GRANULOMA ANNULARE///ERYTHEMATOU S COND NEC 05/03/2007 History of echocardiogram 10/06/2020 @[id number]-Aoafgbicf-PJ 60%, aortic sclerosis, mild aortic valve insufficiency History of exercise stress test 10/07/2020 @LYA-Hyrttpgwy-bqezjac e, EF estimation greater than 70% History of nuclear stress test 10/07/2020 @[facility] by Dr. 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 08/07/2011 Seborrheic Keratosis 10/23/2010 Skin tag 08/07/2011 Tobacco abuse 07/13/2013 Trigger finger b/l hands, has had surgeries Type II or unspecified type diabetes mellitus without mention of complication, not stated as uncontrolled Unspecified hereditary and idiopathic peripheral neuropathy PAST SURGICAL HISTORY Procedure Laterality Date CHOLECYSTECTOMY HX 1994 Cholecystectomy, laparoscopic COLONOSCOPY 02/19/2015 ESOPHAGOGASTRODUODENOS COPY TRANSORAL DIAGNOSTIC 03/28/2013 EGD ESOPHAGOGASTRODUODENOS COPY TRANSORAL DIAGNOSTIC 02/23/2017 EGD PAST SURGICAL HISTORY OF 1974 LEANDRO PAST SURGICAL HISTORY OF 1980 Bilateral salpingoophorectomy PAST SURGICAL HISTORY OF 1986 Lumbar laminectomy PAST SURGICAL HISTORY OF 2002- multiple right partial clavicle resection and first rib resection- septic arthritis PAST SURGICAL HISTORY OF 07/2016 back surgery Lumbar/ thoracic ALLERGIES Augmentin [Amoxicillin-Pot Clavulanate], Biaxin [Clarithromycin], Byetta [Exenatide], Glucophage [Metformin], Iodine, Latex, and Omnicef [Cefdinir] MEDICATIONS gabapentin (NEURONTIN) 300 mg capsule Take 300mg by mouth in the morning and afternoon. Take 1200mg at bedtime. gabapentin (NEURONTIN) 300 mg capsule Take 1 tablet by mouth in the morning and afternoon. Take 4 tablets at bedtime. ondansetron orally disintegrating (ZOFRAN ODT) 4 mg disintegrating tablet Take 1 tablet by mouth every 8 hours as needed for nausea/vomiting. Blood-Glucose Meter monitoring kit Test blood sugar(s) 2 times daily. Glucose Meter of Choice - Kit - Dx: Type 2 DM - Uncontrolled E11.65 blood sugar diagnostic (BLOOD GLUCOSE TEST) test strip Test blood sugar(s) 2 times daily. Dx: Type 2 DM - Uncontrolled E11.65 Insulin: Yes omeprazole (PRILOSEC) 40 mg capsule Take 1 capsule by mouth two times a day. atorvastatin (LIPITOR) 40 mg tablet Take 1 tablet by mouth once daily. glimepiride (AMARYL) 2 mg tablet Take 1 tablet by mouth daily with breakfast. lisinopril (ZESTRIL) 20 mg tablet Take 1.5 tablets by mouth once daily. sertraline (ZOLOFT) 50 mg tablet Take 1 tablet by mouth once daily. traZODone (DESYREL) 100 mg tablet Take 2 tablets by mouth daily at bedtime. fluticasone (FLONASE) 50 mcg/actuation nasal spray Use 2 Sprays in each nostril once daily. Rinse mouth after use. Insulin Syringe-Needle U-100 (BD INSULIN SYRINGE UF) 0.5 mL 30 gauge x 1/2" inject with insulin Four times a day with each meal and at bedtime as directed blood sugar diagnostic (BLOOD GLUCOSE TEST) test strip Test blood sugar(s) 2 times daily. Dx: Type 2 DM - Uncontrolled E11.65 Insulin: Yes ACCU-CHEK GUIDE GLUCOSE METER USE DIRECTED Blood-Glucose Meter monitoring kit Glucose Meter of Choice - Kit - Dx: Type 2 DM - Uncontrolled E11.65 insulin regular, human (NOVOL (more content not included)... Normal [facility] 04-26-2024 [facility] CARLOS COVARRUBIAS ([id number]) 1955 F Date Time Provider Department 04/26/24 [facility] During your visit today, we recorded the following information about you: Talya Aburto LPN 04/26/2024 4:10 PM Signed Pt called in and reports she is out of Gabapentin. New prescriptions were sent to [facility] for short term on 04-25-24. Pt contacted [facility] and they told her they could not fill. I called and spoke with the Pharmacist Deshaun and he would not fill the short term. I called the pharmacist to check on this. Deshaun reports this is a high dose of Gabapentin and she would be willing to fill 7 days only. He reports not certain her insurance will cover. Talya Aburto LPN Allergies As of Date: 04/26/2024 Noted Allergy Reaction AUGMENTIN (AMOXICILLIN-POT CLAVUL*04/25/2018 8 - GI Upset Comments: Nausea, vomiting BIAXIN (CLARITHROMYCIN) 03/27/2007 8 - GI Upset Comments: Metallic taste; can tolerate Zpak BYETTA (EXENATIDE) 07/25/2006 5 - Intolerance Comments: GI upset GLUCOPHAGE (METFORMIN) 07/25/2006 5 - Intolerance Comments: GI upset IODINE 01/16/2004 7 - Swelling Comments: myleogram dye LATEX 09/25/2014 16 - Unknown OMNICEF (CEFDINIR) 04/25/2018 8 - GI Upset Comments: Nausea, vomiting Date Reviewed: 04/26/2024 Reviewed by: Charlotte Munson LPN - Fully Assessed Reason for Visit: medication issue [Other] Prescriptions as of 04/26/2024 - doxycycline monohydrate 100 mg tablet Take 1 tablet by mouth two times a day for 7 days. - gabapentin (NEURONTIN) 300 mg capsule Take 300mg by mouth in the morning and afternoon. Take 1200mg at bedtime. - gabapentin (NEURONTIN) 300 mg capsule Take 1 tablet by mouth in the morning and afternoon. Take 4 tablets at bedtime. - ondansetron orally disintegrating (ZOFRAN ODT) 4 mg disintegrating tablet Take 1 tablet by mouth every 8 hours as needed for nausea/vomiting. - Blood-Glucose Meter monitoring kit Test blood sugar(s) 2 times daily. Glucose Meter of Choice - Kit - Dx: Type 2 DM - Uncontrolled E11.65 - blood sugar diagnostic (BLOOD GLUCOSE TEST) test strip Test blood sugar(s) 2 times daily. Dx: Type 2 DM - Uncontrolled E11.65 Insulin: Yes - omeprazole (PRILOSEC) 40 mg capsule Take 1 capsule by mouth two times a day. - atorvastatin (LIPITOR) 40 mg tablet Take 1 tablet by mouth once daily. - glimepiride (AMARYL) 2 mg tablet Take 1 tablet by mouth daily with breakfast. - lisinopril (ZESTRIL) 20 mg tablet Take 1.5 tablets by mouth once daily. - sertraline (ZOLOFT) 50 mg tablet Take 1 tablet by mouth once daily. - traZODone (DESYREL) 100 mg tablet Take 2 tablets by mouth daily at bedtime. - fluticasone (FLONASE) 50 mcg/actuation nasal spray Use 2 Sprays in each nostril once daily. Rinse mouth after use. - Insulin Syringe-Needle U-100 (BD INSULIN SYRINGE UF) 0.5 mL 30 gauge x 1/2" inject with insulin Four times a day with each meal and at bedtime as directed - blood sugar diagnostic (BLOOD GLUCOSE TEST) test strip Test blood sugar(s) 2 times daily. Dx: Type 2 DM - Uncontrolled E11.65 Insulin: Yes - ACCU-CHEK GUIDE GLUCOSE METER USE DIRECTED - Blood-Glucose Meter monitoring kit Glucose Meter of Choice - Kit - Dx: Type 2 DM - Uncontrolled E11.65 - insulin regular, human (NOVOLIN R REGULAR U-100 INSULN INJECTION) by INJECTION(UNSPECIFIED PARENTERAL ROUTES) route. 34 units in the Am - insulin NPH injection (HumuLIN N,NovoLIN N) 35 units in the Am 45 units in the PM - Lancets lancets Test blood sugar(s) BID times daily. Dx: Type 2 DM - Uncontrolled E11.65 Insulin: Yes - aspirin, enteric coated (ECOTRIN LOW STRENGTH) 81 mg EC tablet Take 1 tablet by mouth once daily. Problem List As Of Date 04/26/2024 Noted Resolved Open wound of other and unspecified parts of tr*03/27/2004 01/04/2017 Type 2 diabetes mellitus with hyperglycemia, wi* Depressive disorder [F32.A] INSOMNIA NOS [G47.00] 07/25/2006 MIXED HYPERLIPIDEMIA [E78.2] 07/25/2006 SOB (shortness of breath) [R06.02] 09/21/2006 BONE AND CARTILAGE DIS NOS [M89.9, M94.9] 04/05/2007 GRANULOMA ANNULARE///ERYTHEMATOU S COND NEC [L53*05/03/2007 01/04/2017 Vitamin D deficiency [E55.9] 05/05/2007 Seborrheic Keratosis [L82.1] 10/23/2010 01/04/2017 Plantar wart of left foot: plantar 1st MTP [B07*08/07/2011 01/04/2017 Intradermal Nevus: Melanocytic vs Neuroid Nevus*08/07/2011 01/04/2017 R/O Neurofibroma: R mid lower buttock [D36.10] 08/07/2011 01/04/2017 R/O Nevus lipomatosus cutaneous superficialis: *08/07/2011 01/04/2017 Skin tag [L91.8] 08/07/2011 01/04/2017 Oral lesion: mid post hard palate [K13.70] 08/07/2011 01/04/2017 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] 08/07/2011 01/04/2017 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 Normal [facility] 04-23-2024 MARIELA Telephone (WIN) CARLOS COVARRUBIAS ([id number]) 1955 F Date Time Provider Department 04/23/24 JEANIE CORTEZ During your visit today, we recorded the following information about you: Sri Ashley LPN 04/23/2024 2:59 PM Signed Patient calling [facility] pharmacy will not fill her Gabapentin rx needs amount of pills increased. Rx says 300 mg in the morning and afternoon and 1200 mg at bedtime. Unless LEGAL SUPPORT SPECIALIST wants to give her a 600 mg rx also to make the 1200 mg at bedtime? Patient will run out of pills in 7 days. She had given the [facility] pharmacy pharmacy phone number [phone]. Please advise Sri Ashley LPN 04/25/2024 9:19 AM Signed Patient calling to check status. She is out of medication. She needs 2 weeks supply of Gabapentin to be sent to [facility] also please. Jeanie Cortez APRN.CLOTH STOCK SORTER 04/25/2024 9:58 AM Signed I did order this on 10/29 with the increased number of pills, but I'll send it again. The following approved medication requests have been transmitted electronically. Requested Prescriptions Signed Prescriptions Disp Refills gabapentin (NEURONTIN) 300 mg capsule 180 capsule 1 Sig: Take 300mg by mouth in the morning and afternoon. Take 1200mg at bedtime. Authorizing Provider: JEANIE CORTEZ gabapentin (NEURONTIN) 300 mg capsule 84 capsule 0 Sig: Take 1 tablet by mouth in the morning and afternoon. Take 4 tablets at bedtime. Authorizing Provider: JEANIE CORTEZ APRN.CLOTH STOCK SORTER Allergies As of Date: 04/23/2024 Noted Allergy Reaction AUGMENTIN (AMOXICILLIN-POT CLAVUL*04/25/2018 8 - GI Upset Comments: Nausea, vomiting BIAXIN (CLARITHROMYCIN) 03/27/2007 8 - GI Upset Comments: Metallic taste; can tolerate Zpak BYETTA (EXENATIDE) 07/25/2006 5 - Intolerance Comments: GI upset GLUCOPHAGE (METFORMIN) 07/25/2006 5 - Intolerance Comments: GI upset IODINE 01/16/2004 7 - Swelling Comments: myleogram dye LATEX 09/25/2014 16 - Unknown OMNICEF (CEFDINIR) 04/25/2018 8 - GI Upset Comments: Nausea, vomiting Date Reviewed: 04/17/2024 Reviewed by: Jeanie Cortez APRN.CLOTH STOCK SORTER - Fully Assessed Reason for Visit: Medication Problem [65] Primary Visit Diagnosis: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 Take 1200mg at bedtime.Disp: 180 capsuleRfl: 1 gabapentin (NEURONTIN) 300 mg capsuleTake 1 tablet by mouth in the morning and afternoon. Take 4 tablets at bedtime.Disp: 84 capsuleRfl: 0 Prescriptions as of 04/25/2024 - gabapentin (NEURONTIN) 300 mg capsule Take 300mg by mouth in the morning and afternoon. Take 1200mg at bedtime. - gabapentin (NEURONTIN) 300 mg capsule Take 1 tablet by mouth in the morning and afternoon. Take 4 tablets at bedtime. - ondansetron orally disintegrating (ZOFRAN ODT) 4 mg disintegrating tablet Take 1 tablet by mouth every 8 hours as needed for nausea/vomiting. - Blood-Glucose Meter monitoring kit Test blood sugar(s) 2 times daily. Glucose Meter of Choice - Kit - Dx: Type 2 DM - Uncontrolled - blood sugar diagnostic (BLOOD GLUCOSE TEST) test strip Test blood sugar(s) 2 times daily. Dx: Type 2 DM - Uncontrolled Insulin: Yes - omeprazole (PRILOSEC) 40 mg capsule Take 1 capsule by mouth two times a day. - atorvastatin (LIPITOR) 40 mg tablet Take 1 tablet by mouth once daily. - glimepiride (AMARYL) 2 mg tablet Take 1 tablet by mouth daily with breakfast. - lisinopril (ZESTRIL) 20 mg tablet Take 1.5 tablets by mouth once daily. - sertraline (ZOLOFT) 50 mg tablet Take 1 tablet by mouth once daily. - traZODone (DESYREL) 100 mg tablet Take 2 tablets by mouth daily at bedtime. - fluticasone (FLONASE) 50 mcg/actuation nasal spray Use 2 Sprays in each nostril once daily. Rinse mouth after use. - Insulin Syringe-Needle U-100 (BD INSULIN SYRINGE UF) 0.5 mL 30 gauge x 1/2" inject with insulin Four times a day with each meal and at bedtime as directed - blood sugar diagnostic (BLOOD GLUCOSE TEST) test strip Test blood sugar(s) 2 times daily. Dx: Type 2 DM - Uncontrolled Insulin: Yes - ACCU-CHEK GUIDE GLUCOSE METER USE DIRECTED - Blood-Glucose Meter monitoring kit Glucose Meter of Choice - Kit - Dx: Type 2 DM - Uncontrolled - insulin regular, human (NOVOLIN R REGULAR U-100 INSULN INJECTION) by INJECTION(UNSPECIFIED PARENTERAL ROUTES) route. 34 units in the Am - insulin NPH injection (HumuLIN N,NovoLIN N) 35 units in the Am 45 units in the PM - Lancets lancets Test blood sugar(s) BID times daily. Dx: Type 2 DM - Uncontrolled Insulin: Yes - aspirin, enteric coated (ECOTRIN LOW STRENGTH) 81 mg EC tablet Take 1 tablet by mouth once daily. Problem List As Of Date 04/23/2024 Noted Resolved Open wound of other (more content not included)... Normal [facility] CNOVon 04-17-2024 CNOV Office Visit (FAMPWS ) CARLOS COVARRUBIAS ([id number]) 1955 F Date Time Provider Department 04/17/24 12:40 PM JE[facility] CORTEZ [facility] During your visit today, we recorded the following information about you: Pulse Respiration Blood pressure Weight 67/minute 16/minute 120/64 98.8 kg Jeanie Cortez APRN.CNP 04/17/2024 4:22 PM Signed Chief Complaint Patient presents with: Medication Follow-up: Neuropathy worse HPI Carlos Covarrubias is a 68 year old female who presents here today for Above Complaints. Neuropathy: Both legs-feel heavy and hurt quite a bit. Legs cramp a lot. Pain at nighttime is absolutely horrible. Perez and aches, stabbing pains through toes. Bottoms of her feet burn during the day but nothing like nighttime. Both hands and arms are going numb. Has chronic neck problems, pain. Doesn't want to try the pain management route. TENS unit for neck. Has helped quite a bit in the past and hasn't done it recently. Thinking she may need to get a scooter-type of device to help her get around. Would need it both in and out of her home. Once her feet start hurting, it is hard for her to get around much and care for herself, perform ADLs. Is unsteady in the shower, at the stove cooking. Has to do a lot of sitting both pain and safety-leigh. Would benefit for out of her home use so she could do things with her family and go out to enjoy things outside her home. Past medical history, appointments, medications, allergies reviewed. 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 08/07/2011 Seborrheic Keratosis 10/23/2010 Skin tag 08/07/2011 Tobacco abuse 07/13/2013 Trigger finger b/l hands, has had surgeries Type II or unspecified type diabetes mellitus without mention of complication, not stated as uncontrolled Unspecified hereditary and idiopathic peripheral neuropathy Previous Surgical History PAST SURGICAL HISTORY Procedure Laterality Date CHOLECYSTECTOMY HX 1994 Cholecystectomy, laparoscopic COLONOSCOPY 02/19/2015 ESOPHAGOGASTRODUODENOS COPY TRANSORAL DIAGNOSTIC 03/28/2013 EGD ESOPHAGOGASTRODUODENOS COPY TRANSORAL DIAGNOSTIC 02/23/2017 EGD PAST SURGICAL HISTORY OF 1974 LEANDRO PAST SURGICAL HISTORY OF 1980 Bilateral salpingoophorectomy PAST SURGICAL HISTORY OF 1986 Lumbar laminectomy PAST SURGICAL HISTORY OF 2002- multiple right partial clavicle resection and first rib resection- septic arthritis PAST SURGICAL HISTORY OF 07/2016 back surgery Lumbar/ thoracic Family History FAMILY HISTORY Problem Relation Age of Onset Diabetes Mother Stroke Mother Coronary Artery Disease Sister Early 40's with finding of ASCVD Coronary Artery Disease Brother 2 brothers diagnosed in their 60's Cancer Brother One brother with brain cancer and another one with tumors "all over his body" Coronary Artery Disease Father ASCVD in his 80's Coronary Artery Disease Brother Cancer Brother Patient Allergies ALLERGIES Allergen Reactions Augmentin [Amoxicil* GI Upset Nausea, vomiting Biaxin [Clarithromy* GI Upset Metallic taste; can tolerate Zpak Byetta [Exenatide] Intolerance GI upset Glucophage [Metform* Intolerance GI upset Iodine Swelling myleogram dye Latex Unknown Omnicef [Cefdinir] GI Upset Nausea, vomiting Current Medications Current Outpatient Medications on File Prior to Visit Medication Sig gabapentin (NEURONTIN) 300 mg capsule Take 3 capsules by mouth daily at bedtime for 90 days. Blood-Glucose Meter monitoring kit Test blood sugar(s) 2 times daily. Glucose Meter of Choice - Kit - Dx: Type 2 D (more content not included)... Normal [facility] BLOOD TB SCREENon 04-16-2024 M. tuberculosis tuberculin stim IFN-g Ql (Bld) Negative Normal [facility] Comment on above: Order Comment: Chirag quinonez Type: BLOOD SPECIMENOrdering Facility: [facility] Address: [address] [place] [address] Performed By: #### I NFTBP ####[facility] [id number] [place] [address] [place] MITOGEN MINUS NIL >9.99 Normal >=0.50 [facility] Comment on above: Order Comment: Chirag quinonez Type: BLOOD SPECIMENOrdering Facility: [facility] Address: [address] [place] [address] Performed By: #### I NFTBP ####[facility] [id number] [place] [address] [place] TB GAMMA INTERPRETATION Infection with M . tuberculosis complex is unlikely. If latent tuberculosis infection is highly suspected, a negative result does not rule out the infection. Specimens from immunocompromised patients and those <5 years of age may show false negative results. In case of a contact investigation, please repeat 8-12 weeks after a known exposure. Normal [facility] Comment on above: Order Comment: Chirag quinonez Type: BLOOD SPECIMENOrdering Facility: [facility] Address: [address] [place] [address] Performed By: #### I NFTBP ####[facility] LABCLIA [id number] [place] [address] [place] TB NIL 0.01 IU/mL Normal <=8.00 [facility] Comment on above: Order Comment: Speci men Type: BLOOD SPECIMENOrdering Facility: [facility] Address: [address] [place] [address] Performed By: #### I NFTBP ####[facility] LABCLIA [id number] [place] [address] [place] TB1 AG MINUS NIL 0.01 IU/mL Normal <0.35 [facility] Comment on above: Order Comment: Speci men Type: BLOOD SPECIMENOrdering Facility: [facility] Address: [address] [place] [address] Performed By: #### I NFTBP ####[facility] LABIA [id number] [place] [address] [place] TB2 AG MINUS NIL 0.00 IU/mL Normal <0.35 [facility] Comment on above: Order Comment: Speci men Type: BLOOD SPECIMENOrdering Facility: [facility] Address: [address] [place] [address] Performed By: #### I NFTBP ####[facility] LABIA [id number] [place] [address] [place] CBC W Auto Differential pane l (Bld)on 04-16-2024 Basophils (Bld) [#/Vol] 0.06 10*3/uL Normal <0.11 [facility] Comment on above: Order Comment: Speci men Type: BLOOD SPECIMENOrdering Facility: [facility] Address: [address] [place] [address] Performed By: #### 5 7021-8 ####[facility] LABIA [id number] [place] [address] [place] Basophils/100 WBC (Bld) 0.8 % Normal [facility] Comment on above: Order Comment: Speci men Type: BLOOD SPECIMENOrdering Facility: [facility] Address: [address] [place] [address] Performed By: #### 5 7021-8 ####[facility] LABCLIA [id number] [place] [address] [place] Differential cell count method Nom (Bld) Auto Normal [facility] Comment on above: Order Comment: Speci men Type: BLOOD SPECIMENOrdering Facility: [facility] Address: [address] [place] [address] Performed By: #### 5 7021-8 ####[facility] LABCLIA [id number] [place] [address] [place] Eosinophils (Bld) [#/Vol] 0.07 10*3/uL Normal <0.46 [facility] Comment on above: Order Comment: Speci men Type: BLOOD SPECIMENOrdering Facility: [facility] Address: [address] [place] [address] Performed By: #### 5 7021-8 ####[facility] LABCLIA [id number] [place] [address] [place] Eosinophils/100 WBC (Bld) 1.0 % Normal [facility] Comment on above: Order Comment: Speci men Type: BLOOD SPECIMENOrdering Facility: [facility] Address: [address] [place] [address] Performed By: #### 5 7021-8 ####[facility] LABCLIA [id number] [place] [address] [place] Erythrocyte distribution width (RBC) [Ratio] 12.3 % Normal 11.5-15.0 [facility] Comment on above: Order Comment: Speci men Type: BLOOD SPECIMENOrdering Facility: [facility] Address: [address] [place] [address] Performed By: #### 5 7021-8 ####[facility] LABCLIA [id number] [place] [address] [place] Hematocrit (Bld) [Volume fraction] 39.6 % Normal 36.0-46.0 [facility] Comment on above: Order Comment: Speci men Type: BLOOD SPECIMENOrdering Facility: [facility] Address: [address] [place] [address] Performed By: #### 5 7021-8 ####[facility] LABIA [id number] [place] [address] [place] Hemoglobin (Bld) [Mass/Vol] 13.1 g/dL Normal 11.5-15.5 [facility] Comment on above: Order Comment: Speci men Type: BLOOD SPECIMENOrdering Facility: [facility] Address: [address] [place] [address] Performed By: #### 5 7021-8 ####[facility] LABIA [id number] [place] [address] [place] Immature granulocytes (Bld) [#/Vol] 0.03 10*3/uL Normal <0.10 [facility] Comment on above: Order Comment: Speci men Type: BLOOD SPECIMENOrdering Facility: [facility] Address: [address] [place] [address] Performed By: #### 5 7021-8 ####[facility] LABIA [id number] [place] [address] [place] Immature granulocytes/100 WBC (Bld) 0.4 % Normal [facility] Comment on above: Order Comment: Speci men Type: BLOOD SPECIMENOrdering Facility: [facility] Address: [address] [place] [address] Performed By: #### 5 7021-8 ####[facility] LABIA [id number] [place] [address] [place] Lymphocytes (Bld) [#/Vol] 2.49 10*3/uL Normal 1.00-4.00 [facility] Comment on above: Order Comment: Speci men Type: BLOOD SPECIMENOrdering Facility: [facility] Address: [address] [place] [address] Performed By: #### 5 7021-8 ####[facility] LABIA [id number] [place] [address] [place] Lymphocytes/100 WBC (Bld) 35.1 % Normal [facility] Comment on above: Order Comment: Speci men Type: BLOOD SPECIMENOrdering Facility: [facility] Address: [address] [place] [address] Performed By: #### 5 7021-8 ####[facility] LABIA [id number] [place] [address] [place] MCH (RBC) [Entitic mass] 29.1 pg Normal 26.0-34.0 [facility] Comment on above: Order Comment: Speci men Type: BLOOD SPECIMENOrdering Facility: [facility] Address: [address] [place] [address] Performed By: #### 5 7021-8 ####[facility] LABIA [id number] [place] [address] [place] MCHC (RBC) [Mass/Vol] 33.1 g/dL Normal 30.5-36.0 [facility] Comment on above: Order Comment: Speci men Type: BLOOD SPECIMENOrdering Facility: [facility] Address: [address] [place] [address] Performed By: #### 5 7021-8 ####[facility] LABIA [id number] [place] [address] [place] MCV (RBC) [Entitic vol] 88.0 fL Normal 80.0-100.0 [facility] Comment on above: Order Comment: Speci men Type: BLOOD SPECIMENOrdering Facility: [facility] Address: [address] [place] [address] Performed By: #### 5 7021-8 ####[facility] LABCLIA [id number] [place] [address] [place] Monocytes (Bld) [#/Vol] 0.50 10*3/uL Normal <0.87 [facility] Comment on above: Order Comment: Speci men Type: BLOOD SPECIMENOrdering Facility: [facility] Address: [address] [place] [address] Performed By: #### 5 7021-8 ####[facility] LABCLIA [id number] [place] [address] [place] Monocytes/100 WBC (Bld) 7.1 % Normal [facility] Comment on above: Order Comment: Speci men Type: BLOOD SPECIMENOrdering Facility: [facility] Address: [address] [place] [address] Performed By: #### 5 7021-8 ####[facility] LABCLIA [id number] [place] [address] [place] Neutrophils (Bld) [#/Vol] 3.94 10*3/uL Normal 1.45-7.50 [facility] Comment on above: Order Comment: Speci men Type: BLOOD SPECIMENOrdering Facility: [facility] Address: [address] [place] [address] Performed By: #### 5 7021-8 ####[facility] LABCLIA [id number] [place] [address] [place] Neutrophils/100 WBC (Bld) 55.6 % Normal [facility] Comment on above: Order Comment: Speci men Type: BLOOD SPECIMENOrdering Facility: [facility] Address: [address] [place] [address] Performed By: #### 5 7021-8 ####[facility] LABCLIA [id number] [place] [address] [place] Nucleated RBC (Bld) [#/Vol] 10*3/uL Normal <0.01 [facility] Comment on above: Order Comment: Speci men Type: BLOOD SPECIMENOrdering Facility: [facility] Address: [address] [place] [address] Performed By: #### 5 7021-8 ####[facility] LABCLIA [id number] [place] [address] [place] Nucleated RBC/100 WBC (Bld) [Ratio] 0.0 /100 WBC Normal [facility] Comment on above: Order Comment: Speci men Type: BLOOD SPECIMENOrdering Facility: [facility] Address: [address] [place] [address] Performed By: #### 5 7021-8 ####[facility] LABCLIA [id number] [place] [address] [place] Platelet mean volume (Bld) [Entitic vol] 9.8 fL Normal 9.0-12.7 [facility] Comment on above: Order Comment: Speci men Type: BLOOD SPECIMENOrdering Facility: [facility] Address: [address] [place] [address] Performed By: #### 5 7021-8 ####[facility] LABCLIA [id number] [place] [address] [place] Platelets (Bld) [#/Vol] 243 10*3/uL Normal 150-400 [facility] Comment on above: Order Comment: Speci men Type: BLOOD SPECIMENOrdering Facility: [facility] Address: [address] [place] [address] Performed By: #### 5 7021-8 ####[facility] LABCLIA [id number] [place] [address] [place] RBC (Bld) [#/Vol] 4.50 10*6/uL Normal 3.90-5.20 [facility] Comment on above: Order Comment: Speci men Type: BLOOD SPECIMENOrdering Facility: [facility] Address: [address] [place] [address] Performed By: #### 5 7021-8 ####[facility] LABIA [id number] [place] [address] [place] WBC (Bld) [#/Vol] 7.09 10*3/uL Normal 3.70-11.00 [facility] Comment on above: Order Comment: Speci men Type: BLOOD SPECIMENOrdering Facility: [facility] Address: [address] [place] [address] Performed By: #### 5 7021-8 ####[facility] LABIA [id number] [place] [address] [place] Comprehensive metabolic 2000 panelon 04-16-2024 Albumin [Mass/Vol] 4.0 g/dL Normal 3.9-4.9 [facility] Comment on above: Order Comment: Speci men Type: BLOOD SPECIMENOrdering Facility: [facility] Address: [address] [place] [address] Performed By: #### 2 4323-8, 14130-1 ####[facility] LABIA [id number] [place] [address] [place] ALP [Catalytic activity/Vol] 98 U/L Normal 34-123 [facility] Comment on above: Order Comment: Speci men Type: BLOOD SPECIMENOrdering Facility: [facility] Address: [address] [place] [address] Performed By: #### 2 4323-8, 22602-3 ####[facility] LABIA [id number] [place] [address] [place] ALT [Catalytic activity/Vol] 15 U/L Normal 7-38 [facility] Comment on above: Order Comment: Speci men Type: BLOOD SPECIMENOrdering Facility: [facility] Address: [address] [place] [address] Performed By: #### 2 4323-8, 01315-6 ####[facility] LABCLIA [id number] [place] [address] [place] Anion gap [Moles/Vol] 11 mmol/L Normal 8-15 [facility] Comment on above: Order Comment: Speci men Type: BLOOD SPECIMENOrdering Facility: [facility] Address: [address] [place] [address] Performed By: #### 2 4323-8, 33535-1 ####[facility] LABCLIA [id number] [place] [address] [place] AST [Catalytic activity/Vol] 20 U/L Normal 13-35 [facility] Comment on above: Order Comment: Speci men Type: BLOOD SPECIMENOrdering Facility: [facility] Address: [address] [place] [address] Performed By: #### 2 4323-8, 75650-9 ####[facility] LABCLIA [id number] [place] [address] [place] Bilirubin [Mass/Vol] 0.4 mg/dL Normal 0.2-1.3 [facility] Comment on above: Order Comment: Speci men Type: BLOOD SPECIMENOrdering Facility: [facility] Address: [address] [place] [address] Performed By: #### 2 4323-8, 58496-7 ####[facility] LABCLIA [id number] [place] [address] [place] Calcium [Mass/Vol] 9.3 mg/dL Normal 8.5-10.2 [facility] Comment on above: Order Comment: Speci men Type: BLOOD SPECIMENOrdering Facility: [facility] Address: [address] [place] [address] Performed By: #### 2 4323-8, 79676-7 ####[facility] LABCLIA [id number] [place] [id number] [place] Chloride [Moles/Vol] 105 mmol/L Normal 98-107 [facility] Comment on above: Order Comment: Speci men Type: BLOOD SPECIMENOrdering Facility: [facility] Address: [address] [place] [address] Performed By: #### 2 4323-8, 15438-8 ####[facility] LABCLIA [id number] [place] [address] [place] CO2 [Moles/Vol] 26 mmol/L Normal 22-30 [facility] Comment on above: Order Comment: Speci men Type: BLOOD SPECIMENOrdering Facility: [facility] Address: [address] [place] [address] Performed By: #### 2 4323-8, 90258-5 ####[facility] LABCLIA [id number] [place] [address] [place] Creatinine [Mass/Vol] 0.78 mg/dL Normal 0.58-0.96 [facility] Comment on above: Order Comment: Speci men Type: BLOOD SPECIMENOrdering Facility: [facility] Address: [address] [place] [address] Performed By: #### 2 4323-8, 96497-0 ####[facility] LABIA [id number] [place] [address] [place] Creatinine and Glomerular filtration rate.predicted panel (S/P/Bld) 82 mL/min/1.73m??? Normal >=60 [facility] Comment on above: Order Comment: Speci men Type: BLOOD SPECIMENOrdering Facility: [facility] Address: [address] [place] [address] Result Comment: Krystyna mated Glomerular Filtration Rate (eGFR) is calculated using the 2020 CKD-EPI creatinine equation. This equation utilizes serum creatinine, sex, and age as parameters. The creatinine assay has traceable calibration to isotope dilution-mass spectrometry. Refer to KDIGO guidelines for clinical interpretation. In patients with unstable renal function, e.g. those with acute kidney injury, the eGFR may not accurately reflect actual GFR. Performed By: #### 2 4323-8, 87127-0 ####[facility] LABIA [id number] [place] [address] [place] Glucose [Mass/Vol] 88 mg/dL Normal 74-99 [facility] Comment on above: Order Comment: Speci men Type: BLOOD SPECIMENOrdering Facility: [facility] Address: [address] [place] [address] Result Comment: The [place] Diabetes Association (ADA) provides guidance for cutoff values for fasting glucose and random glucose. The ADA defines fasting as no caloric intake for at least 8 hours. Fasting plasma glucose results between 100 to 125 mg/dL indicate increased risk for diabetes (prediabetes). Fasting plasma glucose results greater than or equal to 126 mg/dL meet the criteria for diagnosis of diabetes. In the absence of unequivocal hyperglycemia, results should be confirmed by repeat testing. In a patient with classic symptoms of hyperglycemia or hyperglycemic crisis, random plasma glucose results greater than or equal to 200 mg/dL meet the criteria for diagnosis of diabetes. Reference: Standards of Medical Care in Diabetes 2016, [place] [employer] Association. Diabetes Care. 2016.39(Suppl 1). Performed By: #### 2 4323-8, 44051-3 ####[facility] LABIA [id number] [place] [address] [place] Potassium [Moles/Vol] 4.8 mmol/L Normal 3.7-5.1 [facility] Comment on above: Order Comment: Chirag quinonez Type: BLOOD SPECIMENOrdering Facility: [facility] Address: [address] [place] [address] Performed By: #### 2 4323-8, 89616-6 ####[facility] LABIA [id number] [place] [address] [place] Protein [Mass/Vol] 6.7 g/dL Normal 6.3-8.0 [facility] Comment on above: Order Comment: Chirag quinonez Type: BLOOD SPECIMENOrdering Facility: [facility] Address: [address] [place], [place] [address] Performed By: #### 2 4323-8, 52023-1 ####[facility] LABCLIA [id number] [place] [address] [place] Sodium [Moles/Vol] 142 mmol/L Normal 136-144 [facility] Comment on above: Order Comment: Speci men Type: BLOOD SPECIMENOrdering Facility: [facility] Address: [address] [place] [address] Performed By: #### 2 4323-8, 23543-3 ####[facility] LABCLIA [id number] [place] [address] [place] Urea nitrogen [Mass/Vol] 16 mg/dL Normal 7-21 [facility] Comment on above: Order Comment: Speci men Type: BLOOD SPECIMENOrdering Facility: [facility] Address: [address] [place] [address] Performed By: #### 2 4323-8, 10983-8 ####[facility] LABIA [id number] [place] [address] [place] HbA1c (Bld)on 04-16-2024 Average glucose Estimated from glycated hemoglobin (Bld) [Mass/Vol] 143 mg/dL Normal [facility] Comment on above: Order Comment: Speci men Type: BLOOD SPECIMENOrdering Facility: [facility] Address: [address] [place] [address] Result Comment: eAG: (Estimated average glucose) is a calculated value from HgbA1c and is construction sales representative of the average blood glucose level in the last 2-3 month period. Performed By: #### 5 5454-3 ####[facility] LABIA [id number] [place] [address] [place] HbA1c (Bld) [Mass fraction] 6.6 % High 4.3-5.6 [facility] Comment on above: Order Comment: Speci men Type: BLOOD SPECIMENOrdering Facility: [facility] Address: [address] [place] [address] Result Comment: [place] Diabetes Association guidelines indicate that patients with HgbA1c in the range 5.7-6.4% are at increased risk for development of diabetes, and intervention by lifestyle modification may be beneficial. HgbA1c greater or equal to 6.5% is considered diagnostic of diabetes. Performed By: #### 5 5454-3 ####[facility] LABCLIA [id number] [place] [address] [place] Lipid 1996 panelon 4 Cholesterol [Mass/Vol] 163 mg/dL Normal <200 [facility] Comment on above: Order Comment: Speci men Type: BLOOD SPECIMENOrdering Facility: [facility] Address: [address] [place] [address] Result Comment: <200 mg/dL, Desirable 200-239 mg/dL, Borderline high >239 mg/dL, High Performed By: #### 2 4323-8, 00524-0 ####[facility] LABIA [id number] [address] [place] Cholesterol in HDL [Mass/Vol] 40 mg/dL Normal >39 [facility] Comment on above: Order Comment: Speci men Type: BLOOD SPECIMENOrdering Facility: [facility] Address: [address] [place] [address] Result Comment: 40-5 9 mg/dL, Acceptable >59 mg/dL, High: Negative risk factor for coronary heart disease <40 mg/dL, Low: Positive risk factor for coronary heart disease Performed By: #### 2 4323-8, 83198-3 ####[facility] LABCLIA [id number] [address] [place] Cholesterol in LDL [Mass/Vol] 89 mg/dL Normal <100 [facility] Comment on above: Order Comment: Speci men Type: BLOOD SPECIMENOrdering Facility: [facility] Address: [address] [place] [address] Result Comment: <100 mg/dL, Optimal 100-129 mg/dL, Near optimal/above optimal 130-159 mg/dL, Borderline high 160-189 mg/dL, High >189 mg/dL, Very high Secondary prevention optimal LDL Cholesterol levels are recommended to be < 70 mg/dL Performed By: #### 2 4323-8, 61989-9 ####[facility] LABCLIA [id number] [place] [address] [place] Cholesterol in LDL/Cholesterol in HDL [Mass ratio] 2.23 {ratio} Normal <2.54 [facility] Comment on above: Order Comment: Chirag men Type: BLOOD SPECIMENOrdering Facility: [facility] Address: [address] [place] [address] Result Comment: Refe rence: 1. National Cholesterol Education Program ATP III Guideline At-A-Glance Quick Desk Reference: National Heart, Lung, and Blood [place]. National Institutes of Health. 2001: NIH Publication No. 01-3305. 2. An International Atherosclerosis Society position paper: global recommendations for the management of dyslipidemia: executive summary, Atherosclerosis. 2014: 232(2):410-413. Performed By: #### 2 4323-8, 63770-9 ####[facility] LABIA [id number] [place] [address] [place] Cholesterol in VLDL [Mass/Vol] 34 mg/dL High <30 [facility] Comment on above: Order Comment: Chirag quinonez Type: BLOOD SPECIMENOrdering Facility: [facility] Address: [address] [place] [address] Performed By: #### 2 4323-8, 95062-8 ####[facility] LABIA [id number] [place] [address] [place] Cholesterol non HDL [Mass/Vol] 123 mg/dL Normal <130 [facility] Comment on above: Order Comment: Chirag quinonez Type: BLOOD SPECIMENOrdering Facility: [facility] Address: [address] [place] [address] Result Comment: <130 mg/dL, Optimal 130-159 mg/dL, Near optimal/above optimal 160-189 mg/dL, Borderline high 190-219 mg/dL, High >219 mg/dL, Very high Secondary prevention optimal non HDL Cholesterol levels are recommended to be <100 mg/dL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 Work Phone: [facility] 10-03-2023 10:23-0400 Diastolic blood pressure 76 mm[Hg] Jeanie Mya INSPECTOR MATERIAL DISPOSITION.CLOTH STOCK SORTER Work Phone: [facility] 10-03-2023 10:23-0400 Heart rate 69 /min Jeanie Mya INSPECTOR MATERIAL DISPOSITION.CLOTH STOCK SORTER Work Phone: [facility] 10-03-2023 10:23-0400 Respiratory rate 16 /min Jeanie Mya INSPECTOR MATERIAL DISPOSITION.CLOTH STOCK SORTER Work Phone: [facility] 10-03-2023 10:23-0400 SaO2% (BldA) [Mass fraction] 96 % Jeanie Mya INSPECTOR MATERIAL DISPOSITION.CLOTH STOCK SORTER Work Phone: [facility] 10-03-2023 10:23-0400 Systolic blood pressure 108 mm[Hg] Jeanie Mya INSPECTOR MATERIAL DISPOSITION.CLOTH STOCK SORTER Work Phone: [facility] 05-31-2023 11:52-0500 Body temperature 98.2 [degF] Femi Alarcon INSPECTOR MATERIAL DISPOSITION.CLOTH STOCK SORTER Work Phone: [facility] 05-31-2023 11:52-0500 Body weight 98.43 kg Femi Alarcon INSPECTOR MATERIAL DISPOSITION.CLOTH STOCK SORTER Work Phone: [facility] 05-31-2023 11:52-0500 Diastolic blood pressure 68 mm[Hg] Femi Alarcon INSPECTOR MATERIAL DISPOSITION.CLOTH STOCK SORTER Work Phone: [facility] 05-31-2023 11:52-0500 Heart rate 74 /min Femi Alarcon INSPECTOR MATERIAL DISPOSITION.CLOTH STOCK SORTER Work Phone: [facility] 05-31-2023 11:52-0500 Respiratory rate 16 /min Femi Alarcon INSPECTOR MATERIAL DISPOSITION.CLOTH STOCK SORTER Work Phone: [facility] 05-31-2023 11:52-0500 SaO2% (BldA) [Mass fraction] 99 % Femi Alarcon INSPECTOR MATERIAL DISPOSITION.CLOTH STOCK SORTER Work Phone: [facility] 05-31-2023 11:52-0500 Systolic blood pressure 120 mm[Hg] Femi Alarcon INSPECTOR MATERIAL DISPOSITION.CLOTH STOCK SORTER Work Phone: [facility] 04-04-2023 15:13-0400 Body weight 99.9 kg Olinda Chávez MD, PhD Work Phone: [facility] 04-04-2023 15:13-0400 Diastolic blood pressure 74 mm[Hg] Olinda Chávez MD, PhD Work Phone: [facility] 04-04-2023 15:13-0400 Heart rate 76 /min Olinda Chávez MD, PhD Work Phone: [facility] 04-04-2023 15:13-0400 Respiratory rate 16 /min Olinda Chávez MD, PhD Work Phone: [facility] 04-04-2023 15:13-0400 SaO2% (BldA) [Mass fraction] 97 % Olinda Chávez MD, PhD Work Phone: [facility] 04-04-2023 15:13-0400 Systolic blood pressure 116 mm[Hg] Olinda Chávez MD, PhD Work Phone: [facility] 03-04-2023 08:26-0400 Body temperature 97 [degF] El Driver DO Work Phone: [facility] 03-04-2023 08:26-0400 Body weight 98.88 kg El Driver DO Work Phone: [facility] 03-04-2023 08:26-0400 Diastolic blood pressure 80 mm[Hg] El Driver DO Work Phone: [facility] 03-04-2023 08:26-0400 Heart rate 64 /min El Driver DO Work Phone: [facility] 03-04-2023 08:26-0400 Respiratory rate 16 /min El Driver DO Work Phone: [facility] 03-04-2023 08:26-0400 Systolic blood pressure 150 mm[Hg] El Driver DO Work Phone: [facility] 02-03-2023 07:24-0400 Body weight 99.97 kg Aylsha Sol INSPECTOR MATERIAL DISPOSITION.CLOTH STOCK SORTER Work Phone: [facility] 02-03-2023 07:24-0400 Diastolic blood pressure 62 mm[Hg] Alysha Sol INSPECTOR MATERIAL DISPOSITION.CLOTH STOCK SORTER Work Phone: [facility] 02-03-2023 07:24-0400 Heart rate 60 /min Alysha Sol INSPECTOR MATERIAL DISPOSITION.CLOTH STOCK SORTER Work Phone: [facility] 02-03-2023 07:24-0400 Respiratory rate 12 /min Alysha Sol INSPECTOR MATERIAL DISPOSITION.CLOTH STOCK SORTER Work Phone: [facility] 02-03-2023 07:24-0400 Systolic blood pressure 130 mm[Hg] Alysha Sol INSPECTOR MATERIAL DISPOSITION.CLOTH STOCK SORTER Work Phone: [facility] 01-27-2023 10:44-0400 Body height 170.[address] El Driver Work Phone: [facility] 01-27-2023 10:44-0400 Body mass index (BMI) [Ratio] 34.6 kg/m2 Dr. El Driver Work Phone: [facility] 01-27-2023 10:44-0400 Body weight 100.[address] El Driver Work Phone: [facility] 01-27-2023 10:44-0400 Diastolic blood pressure 79 mm[Hg] Dr. El Driver Work Phone: [facility] 01-27-2023 10:44-0400 Heart rate 80 /min Dr. El Driver Work Phone: [facility] 01-27-2023 10:44-0400 Respiratory rate 18 /min Dr. El Driver Work Phone: [facility] 01-27-2023 10:44-0400 Systolic blood pressure 127 mm[Hg] Dr. El Driver Work Phone: [facility] 01-20-2023 14:39-0400 Body height 170.[address] El Driver Work Phone: [facility] 01-20-2023 14:39-0400 Body mass index (BMI) [Ratio] 34.1 kg/m2 Dr. El Driver Work Phone: 2(885)521-656371 [place] [address] 01-20-2023 14:39-0400 Body temperature 97.5 [degF] Dr. El Driver Work Phone: 8(222)903-151171 [place] [address] 01-20-2023 14:39-0400 Body weight 98.[address] El Driver Work Phone: 7(504)901-553615 [place] [address] 01-20-2023 14:39-0400 Diastolic blood pressure 68 mm[Hg] Dr. El Driver Work Phone: 9(733)967-960015 [place] [address] 01-20-2023 14:39-0400 Heart rate 70 /min Dr. El Driver Work Phone: 1(581)269-844671 [place] [address] 01-20-2023 14:39-0400 Respiratory rate 14 /min Dr. El Driver Work Phone: 3(328)492-616515 [place] [address] 01-20-2023 14:39-0400 SaO2% (BldA) [Mass fraction] 100 % Dr. El Driver Work Phone: 5(689)882-455571 [place] [address] 01-20-2023 14:39-0400 Systolic blood pressure 161 mm[Hg] Dr. El Driver Work Phone: [facility] 01-13-2023 13:24-0400 Body weight 99.34 kg Femi Alarcon APRN.CLOTH STOCK SORTER Work Phone: [facility] 01-13-2023 13:24-0400 Diastolic blood pressure 78 mm[Hg] Femi Alarcon APRN.CLOTH STOCK SORTER Work Phone: [facility] 01-13-2023 13:24-0400 Heart rate 80 /min Femi Alarcon APRN.CLOTH STOCK SORTER Work Phone: [facility] 01-13-2023 13:24-0400 Respiratory rate 16 /min Femi Knoble INSPECTOR MATERIAL DISPOSITION.CLOTH STOCK SORTER Work Phone: [facility] 01-13-2023 13:24-0400 SaO2% (BldA) [Mass fraction] 98 % Femi Alarcon APRN.CLOTH STOCK SORTER Work Phone: [facility] 01-13-2023 13:24-0400 Systolic blood pressure 140 mm[Hg] Femi Alarcon APRN.CLOTH STOCK SORTER Work Phone: [facility] 09-28-2022 13:32-0400 Body height 170.[address] El Driver Work Phone: [facility] 09-28-2022 13:32-0400 Body mass index (BMI) [Ratio] 34.2 kg/m2 Dr. El Driver Work Phone: 4(715)436-128371 [place] [address] 09-28-2022 13:32-0400 Body temperature 98.4 [degF] Dr. El Driver Work Phone: 7(816)059-867171 [place] [address] 09-28-2022 13:32-0400 Body weight 98.[address] El Driver Work Phone: 8(828)102-733871 [place] [address] 09-28-2022 13:32-0400 Diastolic blood pressure 73 mm[Hg] Dr. El Driver Work Phone: [facility] 09-28-2022 13:32-0400 Heart rate 78 /min Dr. El Driver Work Phone: 1(904)469-546471 [place] [address] 09-28-2022 13:32-0400 Respiratory rate 18 /min Dr. El Driver Work Phone: [facility] 09-28-2022 13:32-0400 SaO2% (BldA) [Mass fraction] 98 % Dr. El Driver Work Phone: 7(516)558-254071 [place] [address] 09-28-2022 13:32-0400 Systolic blood pressure 129 mm[Hg] Dr. El Driver Work Phone: 6(664)787-449471 [place] [address] 09-19-2022 13:09-0400 Body height 170.18 cm [facility] 09-19-2022 13:09-0400 Body mass index (BMI) [Ratio] 34.8 kg/m2 [facility] 09-19-2022 13:09-0400 Body temperature 98.6 [degF] [facility] 09-19-2022 13:09-0400 Body weight 100.87 kg [facility] 09-19-2022 13:09-0400 Diastolic blood pressure 63 mm[Hg] [facility] 09-19-2022 13:09-0400 Heart rate 75 /min [facility] 09-19-2022 13:09-0400 Respiratory rate 18 /min [facility] 09-19-2022 13:09-0400 SaO2% (BldA) [Mass fraction] 100 % [facility] 09-19-2022 13:09-0400 Systolic blood pressure 179 mm[Hg] [facility] 07-15-2022 17:29-0500 Body temperature 97.7 [degF] DHARMESH BLANKENSHIP MD [facility] 07-15-2022 17:29-0500 Diastolic Blood Pressure Non-Invasive 65 1 DHARMESH BLANKENSHIP MD [facility] 07-15-2022 17:29-0500 Heart rate 95 /min DHARMESH BLANKENSHIP MD [facility] 07-15-2022 17:29-0500 Respiratory rate 18 /min DHARMESH BLANKENSHIP MD [facility] 07-15-2022 17:29-0500 Systolic Blood Pressure Non-Invasive 159 1 DHARMESH BLANKENSHIP MD [facility] 03-23-2022 15:14-0400 Body temperature 100.2 [degF] Genesis Carvalho APRN.CNP Work Phone: [facility] 03-23-2022 15:14-0400 Body weight 98.61 kg Genesis Carvalho INSPECTOR MATERIAL DISPOSITION.CLOTH STOCK SORTER Work Phone: [facility] 03-23-2022 15:14-0400 Diastolic blood pressure 68 mm[Hg] Genesis Carvalho INSPECTOR MATERIAL DISPOSITION.CLOTH STOCK SORTER Work Phone: [facility] 03-23-2022 15:14-0400 Heart rate 86 /min Genesis Carvalho INSPECTOR MATERIAL DISPOSITION.CLOTH STOCK SORTER Work Phone: [facility] 03-23-2022 15:14-0400 Respiratory rate 18 /min Genesis Carvalho INSPECTOR MATERIAL DISPOSITION.CLOTH STOCK SORTER Work Phone: [facility] 03-23-2022 15:14-0400 SaO2% (BldA) [Mass fraction] 97 % Genesis Carvalho INSPECTOR MATERIAL DISPOSITION.CLOTH STOCK SORTER Work Phone: [facility] 03-23-2022 15:14-0400 Systolic blood pressure 122 mm[Hg] Genesis Carvalho INSPECTOR MATERIAL DISPOSITION.CLOTH STOCK SORTER Work Phone: [facility] 09-30-2021 13:37-0400 Body temperature 99.3 [degF] Elizabeth De Paz INSPECTOR MATERIAL DISPOSITION.CLOTH STOCK SORTER Work Phone: [facility] 09-30-2021 13:37-0400 Body weight 99.16 kg Elizabeth De Paz INSPECTOR MATERIAL DISPOSITION.CLOTH STOCK SORTER Work Phone: [facility] 09-30-2021 13:37-0400 Diastolic blood pressure 56 mm[Hg] Elizabeth Zandra INSPECTOR MATERIAL DISPOSITION.CLOTH STOCK SORTER Work Phone: [facility] 09-30-2021 13:37-0400 Heart rate 91 /min Elizabeth Zandra INSPECTOR MATERIAL DISPOSITION.CLOTH STOCK SORTER Work Phone: [facility] 09-30-2021 13:37-0400 Respiratory rate 20 /min Elizabeth Zandra INSPECTOR MATERIAL DISPOSITION.CLOTH STOCK SORTER Work Phone: [facility] 09-30-2021 13:37-0400 SaO2% (BldA) [Mass fraction] 97 % Elizabeth Zandra INSPECTOR MATERIAL DISPOSITION.CLOTH STOCK SORTER Work Phone: [facility] 09-30-2021 13:37-0400 Systolic blood pressure 118 mm[Hg] Elizabeth Zandra CLOTH STOCK SORTER Work Phone: [facility] Encounters Encounter Date Encounter Type Care Provider Facility Start: 04-09-2025 End: 04-09-2025 ambulatory EL L DRIVER Facility:[facility] Start: 04-05-2025 End: 04-05-2025 ambulatory EL L DRIVER Facility:[facility] Start: 03-26-2025 End: 03-26-2025 ambulatory EL L DRIVER Facility:[facility] Start: 03-20-2025 End: 03-20-2025 Emergency department patient visit Dr. El Driver DO Work Phone: -Emergency Department Work Phone: Start: 03-20-2025 End: 03-20-2025 ambulatory EL L DRIVER Facility:[facility] Start: 03-11-2025 End: 03-11-2025 ambulatory EL L DRIVER Facility:[facility] Start: 03-11-2025 End: 03-11-2025 ambulatory EL L DRIVER Facility:[facility] Start: 02-08-2025 End: 02-11-2025 Telephone encounter Adele Hebert MD Work Phone: Neurology Comment on above: Patient Question Start: 02-01-2025 End: 02-01-2025 ambulatory EL L DRIVER Facility:[facility] Start: 02-01-2025 End: 02-01-2025 Patient encounter procedure Adele Hebert MD Work Phone: Neurology Comment on above: Right leg numbness ( Primary Dx); Abnormal reflex; Spinal stenosis of lumbar region without neurogenic claudication; Memory difficulty Start: 01-24-2025 End: 01-24-2025 ambulatory EL L DRIVER Facility:[facility] Start: 01-03-2025 End: 01-03-2025 Telephone encounter Carol Spears MD Work Phone: Neurology Comment on above: Request Outside [facility] Records Start: 01-02-2025 End: 01-07-2025 Telephone encounter Carol Spears MD Work Phone: Neurology Comment on above: Appointment Start: 01-01-2025 End: 01-09-2025 Follow-up encounter Lia Butler MA [facility] [place] Comment on above: Results Start: 12-31-2024 End: 12-31-2024 Subsequent hospital visit by physician [facility] 2 Work Phone: Radiology Comment on above: Right calf pain [M79 .661] Start: 12-31-2024 End: 12-31-2024 Patient encounter procedure Radha Tony APRN.CLOTH STOCK SORTER Work Phone: [facility] [place] Comment on above: Hospital discharge f ollow-up (Primary Dx); Right leg weakness; Right calf pain; Spinal stenosis of lumbar region, unspecified whether neurogenic claudication present; Difficulty in walking, not elsewhere classified; History of back surgery; Neuropathy; Hypomagnesemia Start: 12-31-2024 End: 12-31-2024 ambulatory EL DRIVER Facility:[facility] Start: 12-24-2024 End: 12-25-2024 Emergency department patient visit YAKELIN CUADRA MD Facility:[facility] Start: 12-24-2024 End: 12-25-2024 Observation RONNIE BAL APRN-[facility] Start: 11-15-2024 End: 11-15-2024 Refill Luz Arita APRN.CNP Work Phone: [facility] [place] Start: 11-05-2024 End: 11-05-2024 ambulatory EL DRIVER Facility:[facility] Start: 11-05-2024 End: 11-05-2024 Office outpatient visit 25 minutes Alysha Sol APRN.CLOTH STOCK SORTER Work Phone: [facility] [place] Comment on above: Chest pain, unspecif ied type (Primary Dx); Encounter for screening for lung cancer; Type 2 diabetes mellitus without complication, with long-term current use of insulin (HCC); Primary hypertension; Mixed hyperlipidemia; Myalgia; Obesity, Class I, BMI 30-34.9 Start: 10-31-2024 End: 12-13-2024 Telephone encounter El Driver DO Work Phone: [facility] [place] Start: 10-29-2024 End: 10-29-2024 ambulatory ADDY OAKES Facility:[facility] Start: 10-01-2024 End: 10-02-2024 Telephone encounter El Aguilaron DO Work Phone: Family [facility] [place] Comment on above: handicap placard; La b Orders Start: 10-01-2024 End: 10-01-2024 ambulatory EL DRIVER Facility:[facility] Start: 10-01-2024 End: 10-01-2024 Patient encounter procedure Meenakshi Hansel Work Phone: Podiatry Comment on above: Diabetic polyneuropa thy associated with type 2 diabetes mellitus (HCC) (Primary Dx); Onychodystrophy; Diminished pulses in lower extremity; Pain in toe of right foot; Pain in toe of left foot; 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 Start: 09-29-2024 End: 10-01-2024 Refill El Aguilaron DO Work Phone: [facility] [place] Comment on above: Refill Request (Buck mametamiko last time was incorrect) Start: 09-12-2024 End: 09-13-2024 Orders Only El Aguilaron DO Work Phone: [address] [place] [address] Comment on above: Visit for screening mammogram (Primary Dx) Start: 08-30-2024 End: 08-31-2024 Refill El Aguilaron DO Work Phone: [facility] [place] Comment on above: Refill Request Start: 08-08-2024 End: 08-08-2024 Refill El Ansaririson DO Work Phone: [facility] [place] Comment on above: Refill Request Start: 08-07-2024 End: 08-07-2024 Follow-up encounter Karen SAMAYOA Work Phone: [facility] Start: 08-06-2024 End: 08-06-2024 ambulatory EL DRIVER Facility:[facility] Start: 08-06-2024 End: 08-06-2024 Patient encounter procedure Julissaaraceli Coulter APRN.CLOTH STOCK SORTER Work Phone: [facility] Comment on above: Acute cough (Primary Dx); Flu-like symptoms; Sinus pressure Start: 08-06-2024 End: 08-06-2024 Subsequent hospital visit by physician [facility] [place] Work Phone: Radiology Comment on above: Acute cough [R05.1] Start: 07-31-2024 End: 07-31-2024 ambulatory EL L DRIVER Facility:[facility] Start: 07-31-2024 End: 07-31-2024 Patient encounter procedure Elizabeth De Paz ANNELISE.CLOTH STOCK SORTER Work Phone: [facility] Comment on above: Rash (Primary Dx) Start: 07-31-2024 End: 07-31-2024 Telephone encounter El L Driver DO Work Phone: [facility] [place] Comment on above: Rash Start: 07-26-2024 End: 07-27-2024 Telephone encounter El L Driver DO Work Phone: [facility] [place] Comment on above: Patient Request Start: 07-23-2024 End: 07-23-2024 Refill El L Driver DO Work Phone: [facility] [place] Comment on above: Refill Request Start: 06-06-2024 End: 06-06-2024 Telephone encounter Alysha Sol APRN.CLOTH STOCK SORTER Work Phone: [facility] [place] Comment on above: Results Start: 06-05-2024 End: 06-05-2024 ambulatory EL L DRIVER Facility:[facility] Start: 06-05-2024 End: 06-05-2024 Subsequent hospital visit by physician [facility] Comment on above: Mass of axillary waylon l of left breast [N63.32] Start: 06-04-2024 End: 06-04-2024 ambulatory EL L DRIVER Facility:[facility] Start: 06-04-2024 End: 06-04-2024 Office outpatient visit 15 minutes Alysha Sol INSPECTOR MATERIAL DISPOSITION.CLOTH STOCK SORTER Work Phone: [facility] [place] Comment on above: Mass of axillary waylon l of left breast (Primary Dx) Start: 06-01-2024 End: 06-01-2024 ambulatory El Ansaririson DO Work Phone: [facility] [place] Comment on above: Derm Problem Start: 04-26-2024 End: 04-26-2024 Telephone encounter El Ansaririson DO Work Phone: [facility] [place] Comment on above: medication issue Start: 04-26-2024 End: 04-26-2024 ambulatory EL ANSARIRISON Facility:[facility] Start: 04-26-2024 End: 04-26-2024 Patient encounter procedure Lila Gold INSPECTOR MATERIAL DISPOSITION.CLOTH STOCK SORTER Work Phone: [facility] Comment on above: Lower resp. tract in fection (Primary Dx) Start: 04-23-2024 End: 04-25-2024 Telephone encounter Jeanie Cortez APRN.CLOTH STOCK SORTER Work Phone: [facility] [place] Comment on above: Medication Problem Start: 04-17-2024 End: 04-17-2024 ambulatory JEANIE CORTEZ Facility:[facility] Start: 04-17-2024 End: 04-17-2024 Office outpatient visit 40 minutes Jeanie Cortez APRN.CLOTH STOCK SORTER Work Phone: [facility] [place] Comment on above: DM (diabetes mellitu s), type 2 with neurological complications (HCC) (Primary Dx); Osteoarthritis of spine with radiculopathy, cervical region; Altered gait; RLS (restless legs syndrome); Nausea; Encounter for immunization Start: 04-16-2024 End: 04-16-2024 ambulatory EL ANSARIRISON Facility:[facility] Start: 04-10-2024 End: 04-10-2024 Refill El Driver DO Work Phone: [facility] [place] Comment on above: Refill Request Start: 01-21-2024 Refill El Bisi Ansariri nicholas DO Work Phone: [facility] Comment on above: Refill Request Start: 01-19-2024 Telephone encounter El Bisi carlin DO Work Phone: [facility] Comment on above: Patient Question Start: 10-11-2023 End: 10-11-[address] El Driver Work Phone: [facility] Work Phone: Start: 10-11-2023 End: 10-11-[address] El Driver Work Phone: [facility] Work Phone: Start: 10-05-2023 Documentation procedure Mammog sumanth Coordinator [facility] Start: 10-05-2023 Letter encounter Mammography Coordinator [facility] Department Start: 10-05-2023 Telephone encounter Alysha Villavicencio nicholas INSPECTOR MATERIAL DISPOSITION.CLOTH STOCK SORTER Work Phone: [facility] Start: 10-04-2023 End: 10-04-2023 Subsequent hospital visit by physician [facility] Comment on above: Encounter for screen ing mammogram for breast cancer [Z12.31] Start: 10-03-2023 End: 10-03-2023 Patient encounter procedure Jeanie Cortez APRN.CLOTH STOCK SORTER Work Phone: [facility] Comment on above: Medicare annual well ness visit, subsequent (Primary Dx); Mixed hyperlipidemia; DM (diabetes mellitus), type 2 with neurological complications (HCC); Primary hypertension; Encounter for immunization Start: 09-27-2023 Refill El peterson DO Work Phone: [facility] Comment on above: Refill Request Start: 09-10-2023 ambulatory Asya MATTA Start: 09-10-2023 Patient encounter procedure Fernandes MA [facility] Comment on above: Population Health Na vigation Outreach ([facility] Annual Wellness Visit ) Start: 08-24-2023 Telephone encounter Paulette mayberry PA-C Work Phone: [facility] Comment on above: Results Start: 08-23-2023 End: 08-23-2023 Subsequent hospital visit by physician [facility] [place] Work Phone: Radiology Comment on above: Community acquired p neumonia, unspecified laterality [J18.9] Start: 05-31-2023 End: 05-31-2023 Subsequent hospital visit by physician [facility] Work Phone: Radiology Comment on above: Acute cough [R05.1] Start: 05-31-2023 End: 05-31-2023 Patient encounter procedure Femi Alarcon APRN.CLOTH STOCK SORTER Work Phone: [facility] Comment on above: Acute cough (Primary Dx); Viral URI; Burning with urination; Urinary tract infection without hematuria, site unspecified Start: 04-14-2023 End: 04-14-2023 ambulatory Vito Casiano PT [place] [facility] Physical Therapy Comment on above: Osteoarthritis of sp ine with radiculopathy, cervical region (Primary Dx); Low back pain, unspecified back pain laterality, unspecified chronicity, unspecified whether sciatica present Start: 04-05-2023 Telephone encounter El carlin DO Work Phone: [facility] Comment on above: Patient Update Start: 04-04-2023 End: 04-04-2023 ambulatory OLINDA CHÁVEZ Facility:[facility] Start: 04-04-2023 End: 04-04-2023 Patient encounter procedure Olinda Chávez MD, PhD Work Phone: [facility] Comment on above: Low back pain, unspe cified back pain laterality, unspecified chronicity, unspecified whether sciatica present (Primary Dx); Osteoarthritis of spine with radiculopathy, cervical region Start: 03-04-2023 End: 03-04-2023 Patient encounter procedure El Driver DO Work Phone: [facility] Comment on above: Chronic right should er pain (Primary Dx); Need for influenza vaccination; Arthralgia of right acromioclavicular joint; DDD (degenerative disc disease), cervical; Osteoarthritis of spine with radiculopathy, cervical region; DM (diabetes mellitus), type 2 with neurological complications (HCC) Start: 03-03-2023 Non-patient / Non-visit Dr. Vesta Driver Work Phone: [facility] Work Phone: Start: 03-03-2023 Non-patient / Non-visit Dr. Vesta Driver Work Phone: [facility] Work Phone: Start: 03-03-2023 End: 03-03-[address] El Driver Work Phone: [facility] Work Phone: Start: 03-03-2023 End: 03-03-[address] [facility] Driver [facility] Work Phone: Start: 02-10-2023 Refill El peterson DO Work Phone: [facility] Comment on above: Refill Request Start: 02-09-2023 ambulatory El Bisi peterson DO Work Phone: Internal Medicine [facility] Start: 02-03-2023 End: 02-03-2023 Patient encounter procedure Alysha Sol APRN.CNP Work Phone: [facility] Comment on above: Upper back pain (Dena samm Dx); Current severe episode of major 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 features, unspecified whether recurrent (HCC); Nausea; Mixed hyperlipidemia; DM (diabetes mellitus), type 2 with neurological complications (HCC); Primary hypertension Start: 02-03-[address] El Driver Work Phone: [facility] Work Phone: Start: 01-28-2023 Telephone encounter El carlin DO Work Phone: [facility] Comment on above: Patient Question Start: 01-27-2023 End: 01-27-[address] El Driver Work Phone: [facility] Work Phone: Start: 01-24-2023 ambulatory No Pcp INSPECTOR MATERIAL DISPOSITION [facility] Start: 01-21-2023 ambulatory No Pcp INSPECTOR MATERIAL DISPOSITION [facility] Start: 01-20-2023 End: 01-20-2023 Emergency department patient visit Dr. El Driver Work Phone: [facility]Emer[facility] Work Phone: Start: 01-20-2023 Telephone encounter Eve lopez [facility] Work Phone: Psychology Comment on above: bh consult Start: 01-14-2023 Telephone encounter Femi ott APRN.CLOTH STOCK SORTER Work Phone: [facility] Comment on above: Results; requesting pain management consult in [place] Start: 01-14-2023 End: 01-14-2023 Subsequent hospital visit by physician [facility] W[facility] (I-Stat) Work Phone: Cat Scan Comment on above: Memory loss [R41.3] Start: 01-13-2023 Telephone encounter Eve lopez [facility] Work Phone: Psychology Comment on above: bh consult Appointment Start: 01-13-2023 End: 01-13-2023 Patient encounter procedure Femi Alarcon APRN.CLOTH STOCK SORTER Work Phone: [facility] Comment on above: Pain in both lower e xtremities (Primary Dx); Memory loss; Current severe 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 El Driver Work Phone: [facility] Work Phone: Start: 09-28-2022 End: 09-28-[address] El Driver Work Phone: [facility] Start: 09-21-2022 End: 09-21-[address] El Driver Work Phone: [facility] Work Phone: Start: 09-21-2022 End: 09-21-[address] El Driver Work Phone: [facility]-Outpatient Breast Imaging Start: 09-19-2022 End: 09-19-2022 Emergency department patient visit [facility]gency [facility] Start: 09-06-2022 Telephone encounter El carlin DO Work Phone: [facility] Comment on above: Medication Update Start: 09-01-2022 Telephone encounter Alysha peterson INSPECTOR MATERIAL DISPOSITION.CLOTH STOCK SORTER Work Phone: [facility] Comment on above: Results Refill Request Start: 08-31-2022 Telephone encounter El carlin DO Work Phone: [facility] Comment on above: Rx; quantity issue Start: 08-25-2022 Refill Alysha Sol INSPECTOR MATERIAL DISPOSITION.CLOTH STOCK SORTER Work Phone: [facility] Comment on above: Refill Request Start: 07-15-2022 End: 07-15-2022 Emergency department patient visit DHARMESH BLANKENSHIP MD Facility:[facility] Start: 07-15-2022 End: 07-15-2022 Emergency department patient visit DHARMESH BLANKENSHIP MD [facility] Start: 06-02-2022 Refill El peterson DO Work Phone: Family Medicine [place] Comment on above: Refill Request Start: 03-24-2022 Telephone encounter Stephani Demarco Alli morrison PA-C Work Phone: [facility] Comment on above: Results Start: 03-23-2022 End: 03-23-2022 Patient encounter procedure Genesis Ahmet CASTELAN.CLOTH STOCK SORTER Work Phone: [facility] Comment on above: Acute cough (Primary Dx); Chest congestion Start: 03-23-2022 ambulatory El peterson DO Work Phone: Family [facility] [place] Comment on above: Chest Congestion Refill Request Start: 03-03-2022 ambulatory El peterson DO Work Phone: Internal Medicine [facility] Start: 12-04-2021 End: 12-04-2021 ambulatory Drew Friedman MD Work Phone: [facility] [place] Comment on above: [facility] (Primary Dx) Start: 12-04-2021 End: 12-04-2021 Telemedicine consultation with patient Drew Friedman MD Work Phone: [facility] [place] Start: 12-04-2021 Telephone encounter El Bisi carlin DO Work Phone: [facility] [place] Comment on above: Covid19 Concern Start: 11-25-2021 Telephone encounter Alysha ching INSPECTOR MATERIAL DISPOSITION.CLOTH STOCK SORTER Work Phone: [facility] [place] Comment on above: Results Start: 10-21-2021 Refill El peterson DO Work Phone: Family [facility] [place] Comment on above: Refill Request Start: 09-30-2021 End: 09-30-2021 Subsequent hospital visit by physician [facility] Work Phone: Radiology Comment on above: Cough [R05.9] Start: 09-30-2021 End: 09-30-2021 Patient encounter procedure Elizabeth Zandra CASTELAN.CLOTH STOCK SORTER Work Phone: [facility] Comment on above: Viral illness (Prima ry Dx); Sore throat; Suspected COVID-19 virus infection; Cough Start: 11-11-2020 Telephone encounter El carlin DO Work Phone: Family Medicine [place] Comment on above: Future Appointment Procedures Date Procedure Procedure Detail Performing Clinician Start: 03-20-2025 Radex foot complete minimum [address] El Driver DO Work Phone: Start: 03-20-[address] El Driver DO Work Phone: Start: 08-06-2024 Radiologic exam ches t 2 views Julissa Coulter INSPECTOR MATERIAL DISPOSITION.CLOTH STOCK SORTER Work Phone: Start: 06-05-2024 Us breast uni real t jace with image limited Alysha Sol INSPECTOR MATERIAL DISPOSITION.CLOTH STOCK SORTER Work Phone: Start: 06-05-2024 Digital breast tomos ynthesis unilateral Alysha Sol INSPECTOR MATERIAL DISPOSITION.CLOTH STOCK SORTER Work Phone: Start: 04-17-2024 PFIZER-BIONTECH COVI D-19 VACCINE AGE 12+ YR (COMIRNATY) [facility] INSPECTOR MATERIAL DISPOSITION.CLOTH STOCK SORTER Work Phone: Start: 10-11-[address] El Driver Work Phone: Start: 10-03-2023 RSV VACCINE, BIVALEN T (ABRYSVO) [facility] INSPECTOR MATERIAL DISPOSITION.CLOTH STOCK SORTER Work Phone: Start: 08-23-2023 Radiologic exam ches t 2 views Femi Alarcon INSPECTOR MATERIAL DISPOSITION.CLOTH STOCK SORTER Work Phone: Start: 05-31-2023 Radiologic exam ches t 2 views Femi Alarcon INSPECTOR MATERIAL DISPOSITION.CLOTH STOCK SORTER Work Phone: Start: 05-31-2023 Urnls dip stick/tabl et rgnt auto w/o microscopy Femi Alarcon INSPECTOR MATERIAL DISPOSITION.CLOTH STOCK SORTER Work Phone: Start: 03-04-2023 INFLUENZA VACCINE, P RSV FREE, AGE 65+ YR, HIGH DOSE, QUADRIVALENT (FLUZONE HIGH-DOSE) El Driver DO Work Phone: Start: 03-03-2023 Cardiovascular stres s test using pharmacologic stress agent Dr. El Driver Work Phone: Start: 01-20-2023 Plain chest X-ray Dr. Biju Driver Work Phone: Start: 01-20-2023 Plain X-ray of shoulder Dr. El Driver Work Phone: Start: 01-20-2023 X-ray of cervical spine Dr. El Driver Work Phone: Start: 01-14-2023 Ct head/brain w/o co ntrast material Femi Alarcon APRN.CLOTH STOCK SORTER Work Phone: Start: 09-28-[address] El Driver Work Phone: Start: 09-21-2022 Screening mammography Leatha Driver Work Phone: Start: 09-30-2021 Radiologic exam ches t 2 views Elizabeth De Paz APRN.CLOTH STOCK SORTER Work Phone: Start: 09-30-2021 STREP A MOLECULAR (POC) Elizabeth De Paz APRN.CLOTH STOCK SORTER Work Phone: Start: 01-29-2021 Mammography Elizabeth De Paz APRN.CLOTH STOCK SORTER Work Phone: Start: 02-19-2015 Colonoscopy Elizabeth De Paz APRN.CLOTH STOCK SORTER Work Phone: Start: 06-20-2002 Bone structure of cl avicle (body structure) RONNIE BAL INSPECTOR MATERIAL DISPOSITION-CLOTH STOCK SORTER Comment on above: reports 3/4 of clavi ani surgically removed ~2002 in [place] Cholecystectomy RONNIE Lynch INSPECTOR MATERIAL DISPOSITION-CLOTH STOCK SORTER Comment on above: Pt not sure of exact year Hysterectomy RONNIE Coates PRN-CLOTH STOCK SORTER Comment on above: pt unsure of year Lumbar spine structu re (body structure) RONNIE BAL INSPECTOR MATERIAL DISPOSITION-CLOTH STOCK SORTER Comment on above: Pt unable to report exact surgery, states she has had 2 to lumbar area Plan of Treatment Date Care Activity Detail Author Start: 05-19-2028 Urine microalbumin profile [facility] Start: 12-31-2025 Annual PCP Team Cord Splicer timi Disease Visit Annual PCP Team Chronic Disease Visit [facility] Start: 12-14-2025 Glaucoma screening Dilated Retinal E xam [facility] Start: 11-05-2025 Annual PCP Team Cord Splicer timi Disease Visit Annual PCP Team Chronic Disease Visit [facility] Start: 11-05-2025 BP Controlled (<130/80) BP Controlle d (<130/80) [facility] Start: 11-05-2025 Covid-19 Vaccine () Covid-19 Vaccine () [facility] Comment on above: Postponed from 10/16 (Declined at this time) Start: 10-29-2025 Hepatitis B screening Urine Al bumin:Creatinine Ratio [facility] Start: 10-29-2025 Hepatitis B surface antibody level LDL Cholesterol [facility] Start: 08-09-2025 End: 08-09-2025 Patient encounter procedure 08/09/2025 11:00 AM EST Office Visit Neurology [address] [place] [address] [place] [address] Adele Hebert MD [address] [place] [address] Return in about 6 months (around 08/04/2025). Neurology Comment on above: Return in about 6 mo nths (around 08/04/2025). Start: 06-04-2025 Annual PCP Team Cord Splicer timi Disease Visit Annual PCP Team Chronic Disease Visit [facility] Start: 06-04-2025 BP Controlled (<130/80) BP Controlle d (<130/80) [facility] Start: 05-01-2025 Hemoglobin A1c measurement HbA1C [facility] Start: 04-17-2025 Annual PCP Team Cord Splicer timi Disease Visit Annual PCP Team Chronic Disease Visit [facility] Start: 04-17-2025 BP Controlled (<130/80) BP Controlle d (<130/80) [facility] Start: 04-16-2025 Hepatitis B surface antibody level LDL Cholesterol [facility] Start: 03-20-2025 [facility] Start: 03-11-2025 End: 03-11-2025 Patient encounter procedure 03/11/2025 12:00 PM EDT Office Visit Family [facility] [place] [address] [place] [address] El Driver DO [address] [place] [address] 4 month follow up [facility] [place] Comment on above: 4 month follow up Start: 03-01-2025 Pneumococcal Vaccine : 50+ (3 of 3 - PCV20 or PCV21) Pneumococcal Vaccine: 50+ (3 of 3 - PCV20 or PCV21) [facility] Start: 02-19-2025 Colonoscopy COLONOSCOPY [facility] Start: 02-19-2025 COLORECTAL CANCER SCREENING COLORECTAL CANCER SCREENING [facility] Start: 02-19-2025 Screening for malign ant neoplasm of colon [facility] Start: 02-19-2025 End: 02-19-2025 Patient encounter procedure 02/19/2025 11:00 AM EDT Appointment Radiology [address] [place] [address] Right leg numbness [R20.0] Radiology Comment on above: Right leg numbness [ R20.0] Start: 02-18-2025 Influenza vaccination Influenza Vacc ine (#1) [facility] Start: 02-11-2025 End: 02-11-2025 Patient encounter procedure 02/11/2025 11:00 AM EDT Appointment Radiology [address] [place] [address] Right leg numbness [R20.0] Radiology Comment on above: Right leg numbness [ R20.0] Start: 02-05-2025 End: 02-05-2025 Patient encounter procedure 02/05/2025 10:40 AM EDT Appointment Cat Scan [address] [place] [address] Encounter for screening for lung cancer [Z12.2] Cat Scan Comment on above: Encounter for screen ing for lung cancer [Z12.2] Start: 02-01-2025 End: 02-01-2025 Patient encounter procedure 02/01/2025 9:30 AM EDT Office Visit Neurology [address] [facility] [place] [address] Adele Hebert MD [address] [place] [address] leg weakness Neurology Comment on above: leg weakness Start: 01-24-2025 End: 01-24-2025 Patient encounter procedure 01/24/2025 11:00 AM EDT Office Visit Pulmonary Medicine [address] [place], [place] [id number] Carson Murray APRN.CLOTH STOCK SORTER [address] [place] [address] lcs Pulmonary Medicine Comment on above: lcs Start: 01-02-2025 End: 01-02-2025 Patient encounter procedure 01/02/2025 8:00 AM EDT Office Visit Neurology [address] [address] Carol Spears MD [address] [place] [address] Dx: Right leg weakness [R29.898] Neurology Comment on above: Dx: Right leg weakne ss [R29.898] Start: 12-06-2024 End: 12-06-2024 Patient encounter procedure 12/06/2024 9:00 AM EDT Office Visit Pulmonary Medicine [address] [place], [place] [address] Carson Murray APRN.CLOTH STOCK SORTER [address] [place] [address] : Encounter for screening for lung cancer [Z12.2] Pulmonary Medicine Comment on above: : Encounter for scre ening for lung cancer [Z12.2] Start: 11-20-2024 End: 11-20-2024 Patient encounter procedure 11/20/2024 2:40 PM EDT Office Visit Cardiology [address] [place], [place] [id number] Chest pain, unspecified type [R07.9] Cardiology Comment on above: Chest pain, unspecif ied type [R07.9] Start: 10-31-2024 End: 10-31-2024 Patient encounter procedure 10/31/2024 3:40 PM EDT Office Visit Family Medicine [place] [address] [place] [address] El Driver DO [address] [place] [address] 6 month f/u Family [facility] [place] Comment on above: 6 month f/u Start: 10-16-2024 Covid-19 Vaccine () Covid-19 Vaccine () [facility] Start: 10-15-2024 Hemoglobin A1c measurement HbA1C [facility] Start: 10-10-2024 End: 10-10-2024 Patient encounter procedure 10/10/2024 9:00 AM EDT Office Visit Vasculary Surgery [address] [place] [address] Onychodystrophy [L60.3] Vasculary Surgery Comment on above: Onychodystrophy [L60 .3] Start: 10-05-2024 End: 10-05-2024 Patient encounter procedure 10/05/2024 9:50 AM EDT Appointment Mammogram [address] [place] [address] RENA SCREENING Mammogram Comment on above: RENA SCREENING Start: 10-03-2024 Screening for malign ant neoplasm of breast Mammogram Screening [facility] Start: 10-02-2024 End: 02-18-2025 25-hydroxyvitamin D3 [Mass/volume] in Serum or Plasma VITAMIN D 25 HYDROXY Lab Routine Vitamin D deficiency Expected: 10/02/2024 (Approximate), Expires: 02/18/2025 [facility] Comment on above: Expected: 10/02/2024 (Approximate), Expires: 02/18/2025 Start: 10-02-2024 Annual PCP Team Cord Splicer timi Disease Visit Annual PCP Team Chronic Disease Visit [facility] Start: 10-02-2024 BP Controlled (<130/80) BP Controlle d (<130/80) [facility] Start: 10-02-2024 End: 02-18-2025 CBC W Auto Differential panel - Blood COMPLETE BLOOD COUNT AND DIFFERENTIAL Lab Routine Mixed hyperlipidemia DM (diabetes mellitus), type 2 with neurological complications (HCC) Expected: 10/02/2024 (Approximate), Expires: 02/18/2025 [facility] Work Phone: Comment on above: Expected: 10/02/2024 (Approximate), Expires: 02/18/2025 Start: 10-02-2024 End: 02-18-2025 Comprehensive metabolic 2000 panel - Serum or Plasma COMPREHENSIVE METABOLIC PANEL Lab Routine Mixed hyperlipidemia DM (diabetes mellitus), type 2 with neurological complications (HCC) Expected: 10/02/2024 (Approximate), Expires: 02/18/2025 [facility] Comment on above: Expected: 10/02/2024 (Approximate), Expires: 02/18/2025 Start: 10-02-2024 Glaucoma screening Dilated Retinal E xam [facility] Start: 10-02-2024 End: 02-18-2025 Hemoglobin A1c in Blood HEMOGLOBIN A1C Lab Routine DM (diabetes mellitus), type 2 with neurological complications (HCC) Expected: 10/02/2024 (Approximate), Expires: 02/18/2025 [facility] Comment on above: Expected: 10/02/2024 (Approximate), Expires: 02/18/2025 Start: 10-02-2024 End: 02-18-2025 Lipid 1996 panel - Serum or Plasma LIPID PANEL, FASTING Lab Routine Mixed hyperlipidemia Expected: 10/02/2024 (Approximate), Expires: 02/18/2025 [facility] Comment on above: Expected: 10/02/2024 (Approximate), Expires: 02/18/2025 Start: 10-02-2024 End: 02-18-2025 Microalbumin/Creatinine [Mass Ratio] in Urine ALBUMIN/CREATININE RATIO, URINE Lab Routine DM (diabetes mellitus), type 2 with neurological complications (HCC) Expected: 10/02/2024 (Approximate), Expires: 02/18/2025 [facility] Comment on above: Expected: 10/02/2024 (Approximate), Expires: 02/18/2025 Start: 10-02-2024 Screening for malign ant neoplasm of lung Lung Cancer Screening [facility] Comment on above: Postponed from 08/17 (Currently Scheduled) Start: 10-01-2024 End: 10-01-2024 Patient encounter procedure 10/01/2024 9:45 AM EDT Office Visit Podiatry [address] [place] [address] Meenakshi Hamm [address] [place] [address] LT FOOT GREAT TOENAIL STICKS UP PAINFUL /DIAB Podiatry Comment on above: LT FOOT GREAT TOENAI L STICKS UP PAINFUL /DIAB Start: 06-20-2024 Medicare Advantage A nnual Wellness Visit Medicare Advantage Annual Wellness Visit [facility] Start: 06-05-2024 End: 06-05-2024 Patient encounter procedure Mammogram Comment on above: COMP LT LUMP AXILLA Mass of axillary waylon l of left breast [N63.32] Start: 06-04-2024 End: 06-04-2024 Patient encounter procedure 06/04/2024 12:40 PM EST Office Visit Family Medicine [place] [address] [place] [address] Alysha Sol APRN.CLOTH STOCK SORTER [address] [place] [address] Raised area behind left axillary. See triage 06/01/2024. Family Medicine [place] Comment on above: Raised area behind l eft axillary. See triage 06/01/2024. 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] [place] [facility] Physical Therapy Comment on above: Osteoarthritis of sp ine with radiculopathy, cervical region [M47.22] Start: 05-15-2024 End: 05-15-2024 Patient encounter procedure 05/15/2024 1:00 PM EST Office Visit Family [facility] [place] [address] [place] [address] Jeanie Cortez APRN.CLOTH STOCK SORTER [address] [place], [place] [id number] 4-5 weeks follow up Family [facility] [place] Comment on above: 4-5 weeks follow up Start: 04-17-2024 End: 04-17-2024 Patient encounter procedure 04/17/2024 12:40 PM EDT Office Visit Family [facility] [place] [address] [place], [place] [id number] Jeanie Cortez APRN.CLOTH STOCK SORTER [address] [place], [place] [id number] Medication follow [facility] Comment on above: Medication follow Start: 04-04-2024 BP Controlled (<130/80) BP Controlle d (<130/80) [facility] Start: 03-04-2024 Annual PCP Team Cord Splicer timi Disease Visit Annual PCP Team Chronic Disease Visit [facility] Start: 03-04-2024 Hepatitis B screening Urine Al bumin:Creatinine Ratio [facility] Start: 02-19-2024 Covid-19 Vaccine ( season) Covid-19 Vaccine ( season) [facility] Start: 02-19-2024 Covid-19 Vaccine ( season) Covid-19 Vaccine ( season) [facility] Start: 02-19-2024 Influenza vaccination Influenza Vacc ine (#1) [facility] Start: 02-04-2024 ANNUAL PCP TEAM VICE PRESIDENT OF ACADEMIC AFFAIRS TIMI DISEASE VISIT ANNUAL PCP TEAM CHRONIC DISEASE VISIT [facility] Start: 02-04-2024 COVID-19 VACCINE (6 - Moderna series) COVID-19 VACCINE (6 - Moderna series) [facility] Comment on above: Postponed from 07/01 (Declined at this time) Start: 02-04-2024 Pneumococcal Vaccine : 65+ (3 - PPSV23 or PCV20) Pneumococcal Vaccine: 65+ (3 - PPSV23 or PCV20) [facility] Comment on above: Postponed from 03/01 (Declined at this time) Start: 02-04-2024 Pneumococcal Vaccine : 65+ (3 of 3 - PPSV23 or PCV20) Pneumococcal Vaccine: 65+ (3 of 3 - PPSV23 or PCV20) [facility] Comment on above: Postponed from 03/01 (Declined at this time) Start: 02-04-2024 PNEUMOCOCCAL: 65+ (3 - PPSV23 or PCV20) PNEUMOCOCCAL: 65+ (3 - PPSV23 or PCV20) [facility] Comment on above: Postponed from 03/01 (Declined at this time) Start: 01-26-2024 End: 04-26-2024 BLOOD TB SCREEN BLOOD TB SCREEN Lab Routine Screening for tuberculosis Expected: 01/26/2024, Expires: 04/26/2024 [facility] Work Phone: Comment on above: Expected: 01/26/2024 , Expires: 04/26/2024 Start: 01-26-2024 End: 04-26-2024 CBC W Auto Differential panel - Blood COMPLETE BLOOD COUNT AND DIFFERENTIAL Lab Routine Mixed hyperlipidemia DM (diabetes mellitus), type 2 with neurological complications (HCC) Expected: 01/26/2024, Expires: 04/26/2024 [facility] Comment on above: Expected: 01/26/2024 , Expires: 04/26/2024 Start: 01-26-2024 End: 04-26-2024 Comprehensive metabolic 2000 panel - Serum or Plasma COMPREHENSIVE METABOLIC PANEL Lab Routine Mixed hyperlipidemia DM (diabetes mellitus), type 2 with neurological complications (HCC) Expected: 01/26/2024, Expires: 04/26/2024 [facility] Comment on above: Expected: 01/26/2024 , Expires: 04/26/2024 Start: 01-26-2024 End: 04-26-2024 Hemoglobin A1c in Blood HEMOGLOBIN A1C Lab Routine DM (diabetes mellitus), type 2 with neurological complications (HCC) Expected: 01/26/2024, Expires: 04/26/2024 [facility] Comment on above: Expected: 01/26/2024 , Expires: 04/26/2024 Start: 01-26-2024 End: 04-26-2024 Lipid 1996 panel - Serum or Plasma LIPID PANEL BASIC Lab Routine Mixed hyperlipidemia Expected: 01/26/2024, Expires: 04/26/2024 [facility] Comment on above: Expected: 01/26/2024 , Expires: 04/26/2024 Start: 01-14-2024 ANNUAL PCP TEAM VICE PRESIDENT OF [employer] TIMI DISEASE VISIT ANNUAL PCP TEAM CHRONIC DISEASE VISIT [facility] Start: 10-03-2023 End: 01-02-2024 CBC panel - Blood by Automated count COMPLETE BLOOD COUNT Lab Routine DM (diabetes mellitus), type 2 with neurological complications (HCC) Primary hypertension Medicare annual wellness visit, subsequent Expected: 10/03/2023, Expires: 01/02/2024 [facility] Work Phone: Comment on above: Expected: 10/03/2023 , Expires: 01/02/2024 Start: 10-03-2023 End: 01-02-2024 Comprehensive metabolic 2000 panel - Serum or Plasma COMPREHENSIVE METABOLIC PANEL Lab Routine DM (diabetes mellitus), type 2 with neurological complications (HCC) Primary hypertension Medicare annual wellness visit, subsequent Expected: 10/03/2023, Expires: 01/02/2024 [facility] Work Phone: Comment on above: Expected: 10/03/2023 , Expires: 01/02/2024 Start: 10-03-2023 End: 01-02-2024 Hemoglobin A1c in Blood HEMOGLOBIN A1C Lab Routine DM (diabetes mellitus), type 2 with neurological complications (HCC) Medicare annual wellness visit, subsequent Expected: 10/03/2023, Expires: 01/02/2024 [facility] Work Phone: Comment on above: Expected: 10/03/2023 , Expires: 01/02/2024 Start: 10-03-2023 End: 01-02-2024 Lipid 1996 panel - Serum or Plasma LIPID PANEL BASIC Lab Routine Mixed hyperlipidemia Medicare annual wellness visit, subsequent Expected: 10/03/2023, Expires: 01/02/2024 [facility] Work Phone: Comment on above: Expected: 10/03/2023 , Expires: 01/02/2024 Start: 09-01-2023 BP CONTROLLED (<130/80) BP CONTROLLE D (<130/80) [facility] Start: 08-31-2023 3 comp foot exam completed DIABETIC FOOT EXAM [facility] Start: 08-31-2023 ANNUAL PCP TEAM VICE PRESIDENT OF [employer] TIMI DISEASE VISIT ANNUAL PCP TEAM CHRONIC DISEASE VISIT [facility] Start: 08-31-2023 Diabetic foot examination Diabetic F oot Exam [facility] Start: 08-31-2023 Hepatitis B surface antibody level LDL CHOLESTEROL [facility] Start: 07-16-2023 Covid-19 Vaccine () Covid-19 Vaccine () [facility] Start: 03-23-2023 BP CONTROLLED (<130/80) BP CONTROLLE D (<130/80) [facility] Start: 03-04-2023 End: 05-04-2023 ALBUMIN/CREAT RATIO RND UR [facility] Work Phone: Comment on above: Expected: 03/04/2023 , Expires: 05/04/2023 Start: 03-02-2023 Hemoglobin A1c measurement HbA1C [facility] Start: 03-02-2023 Hemoglobin A1c/Hemoglobin.total in Blood HBA1C [facility] Start: 02-18-2023 Influenza vaccination INFLUENZA (#1) [facility] Start: 02-03-2023 End: 04-05-2023 CBC W Auto Differential panel - Blood CBC + DIFF Lab Routine Mixed hyperlipidemia DM (diabetes mellitus), type 2 with neurological complications (HCC) Expected: 02/03/2023, Expires: 04/05/2023 [facility] Work Phone: Comment on above: Expected: 02/03/2023 , Expires: 04/05/2023 Start: 02-03-2023 End: 04-05-2023 Comprehensive metabolic 2000 panel - Serum or Plasma COMP METABOLIC PANEL Lab Routine Mixed hyperlipidemia DM (diabetes mellitus), type 2 with neurological complications (HCC) Expected: 02/03/2023, Expires: 04/05/2023 [facility] Work Phone: Comment on above: Expected: 02/03/2023 , Expires: 04/05/2023 Start: 02-03-2023 End: 04-05-2023 Hemoglobin A1c in Blood HGB A1C Lab Routine DM (diabetes mellitus), type 2 with neurological complications (HCC) Expected: 02/03/2023, Expires: 04/05/2023 [facility] Work Phone: Comment on above: Expected: 02/03/2023 , Expires: 04/05/2023 Start: 02-03-2023 End: 04-05-2023 Lipid 1996 panel - Serum or Plasma LIPID PANEL BASIC Lab Routine Mixed hyperlipidemia Expected: 02/03/2023, Expires: 04/05/2023 [facility] Work Phone: Comment on above: Expected: 02/03/2023 , Expires: 04/05/2023 Start: 01-13-2023 End: 03-15-2023 25-hydroxyvitamin D3 [Mass/volume] in Serum or Plasma [facility] Work Phone: Comment on above: Expected: 01/13/2023 , Expires: 03/15/2023 Start: 01-13-2023 End: 03-15-2023 Cobalamin (Vitamin B12) [Mass/volume] in Serum or Plasma [facility] Work Phone: Comment on above: Expected: 01/13/2023 , Expires: 03/15/2023 Start: 01-13-2023 End: 03-15-2023 Comprehensive metabolic 2000 panel - Serum or Plasma [facility] Work Phone: Comment on above: Expected: 01/13/2023 , Expires: 03/15/2023 Start: 01-13-2023 End: 03-15-2023 Folate [Mass/volume] in Serum or Plasma [facility] Work Phone: Comment on above: Expected: 01/13/2023 , Expires: 03/15/2023 Start: 01-13-2023 End: 03-15-2023 SYPHILIS TOTAL W/REFLEX [facility] Work Phone: Comment on above: Expected: 01/13/2023 , Expires: 03/15/2023 Start: 01-13-2023 End: 03-15-2023 Thyrotropin [Units/volume] in Serum or Plasma [facility] Work Phone: Comment on above: Expected: 01/13/2023 , Expires: 03/15/2023 Start: 01-13-2023 End: 03-15-2023 Thyroxine (T4) free [Mass/volume] in Serum or Plasma [facility] Work Phone: Comment on above: Expected: 01/13/2023 , Expires: 03/15/2023 Start: 01-13-2023 End: 03-15-2023 Triiodothyronine (T3) [Mass/volume] in Serum or Plasma [facility] Work Phone: Comment on above: Expected: 01/13/2023 , Expires: 03/15/2023 Start: 12-04-2022 ANNUAL PCP TEAM VICE PRESIDENT OF [employer] TIMI DISEASE VISIT ANNUAL PCP TEAM CHRONIC DISEASE VISIT [facility] Start: 11-24-2022 Hepatitis B surface antibody level LDL CHOLESTEROL [facility] Start: 11-23-2022 ANNUAL PCP TEAM VICE PRESIDENT OF [employer] TIMI DISEASE VISIT ANNUAL PCP TEAM CHRONIC DISEASE VISIT [facility] Start: 11-23-2022 BP CONTROLLED (<130/80) BP CONTROLLE D (<130/80) [facility] Start: 09-30-2022 BP CONTROLLED (<130/80) BP CONTROLLE D (<130/80) [facility] Start: 07-01-2022 COVID-19 VACCINE (6 - Moderna series) COVID-19 VACCINE (6 - Moderna series) [facility] Start: 06-20-2022 ADVANCE DIRECTIVE DISCUSSION ADVANCE DIRECTIVE DISCUSSION [facility] Start: 05-26-2022 Hemoglobin A1c/Hemoglobin.total in Blood HBA1C [facility] Start: 05-19-2022 ANNUAL PCP TEAM VICE PRESIDENT OF [employer] TIMI DISEASE VISIT ANNUAL PCP TEAM CHRONIC DISEASE VISIT [facility] Start: 03-23-2022 End: 04-06-2022 Influenza virus A and B RNA and SARS-CoV-2 (COVID-19) N gene panel - Respiratory specimen by JULI with probe detection COVID WITH FLUA+B, ROUTINE Microbiology Routine Acute cough Chest congestion Expected: 03/23/2022, Expires: 04/06/2022 [facility] Work Phone: Comment on above: Expected: 03/23/2022 , Expires: 04/06/2022 Start: 02-18-2022 Influenza vaccination INFLUENZA (#1) [facility] Start: 02-11-2022 3 comp foot exam completed DIABETIC FOOT EXAM [facility] Start: 02-09-2022 Hepatitis B surface antibody level LDL CHOLESTEROL [facility] Start: 01-29-2022 Mammography [facility] Start: 01-29-2022 Screening for malign ant neoplasm of breast Mammogram Screening [facility] Start: 01-28-2022 Glaucoma screening Dilated Retinal E xam [facility] Start: 01-28-2022 Hepatitis C antibody , confirmatory test DILATED RETINAL EXAM [facility] Start: 12-04-2021 End: 12-18-2021 SARS-CoV-2 (COVID-19) RNA [Presence] in Respiratory specimen by JULI with probe detection 2019 CORONAVIRUS Microbiology Routine Encounter by telehealth for suspected COVID-19 Expected: 12/04/2021, Expires: 12/18/2021 [facility] Work Phone: Comment on above: Expected: 12/04/2021 , Expires: 12/18/2021 Start: 11-10-2021 Hepatitis B screening URINE AL BUMIN:CREATININE RATIO [facility] Start: 09-30-2021 End: 10-14-2021 Influenza virus A and B RNA and SARS-CoV-2 (COVID-19) N gene panel - Respiratory specimen by JULI with probe detection [facility] Work Phone: Comment on above: Expected: 09/30/2021 , Expires: 10/14/2021 Start: 08-12-2021 Hemoglobin A1c/Hemoglobin.total in Blood HBA1C [facility] Start: 06-20-2021 ADVANCE DIRECTIVE DISCUSSION ADVANCE DIRECTIVE DISCUSSION [facility] Start: 03-01-2021 Pneumococcal Vaccine : 65+ (3 of 3 - PPSV23 or PCV20) Pneumococcal Vaccine: 65+ (3 of 3 - PPSV23 or PCV20) [facility] Start: 03-01-2021 PNEUMOCOCCAL: 65+ (3 - PPSV23 if available, else PCV20) PNEUMOCOCCAL: 65+ (3 - PPSV23 if available, else PCV20) [facility] Start: 03-01-2021 PNEUMOCOCCAL: 65+ (3 - PPSV23 or PCV20) PNEUMOCOCCAL: 65+ (3 - PPSV23 or PCV20) [facility] Start: 2018 PNEUMOVAX AGE 65 AND OVER WITH 5YR LOOKBACK (#1) PNEUMOVAX AGE 65 AND OVER WITH 5YR LOOKBACK (#1) [facility] Start: 2013 Hepatitis B Vaccine (1 of 3 - Risk 3-dose series) Hepatitis B Vaccine (1 of 3 - Risk 3-dose series) [facility] Start: 2013 RSV Vaccine (1 - 1-d ose 60+ series) RSV Vaccine (1 - 1-dose 60+ series) [facility] Start: 2003 Influenza vaccination LUNG CANCER SC REENING [facility] Start: 2003 Screening for malign ant neoplasm of lung Lung Cancer Screening [facility] Start: 1998 COLOGUARD (FIT-DNA) COLOGUARD (FIT-D NA) [facility] Start: [address] COLONOGRAPHY [facility] Start: 1998 FECAL OCCULT BLOOD FECAL OCCULT BLOO D [facility] Start: 1998 Screening for malign ant neoplasm of colon [facility] Start: 1998 SIGMOIDOSCOPY SIGMOIDOSCOPY [place] BACH SCREENING TEST BACH SCREENI NG TEST Procedures Routine Memory difficulty Ordered: 02/01/2025 [facility] Comment on above: Ordered: 02/01/2025 Bacteria identified in Urine by Culture URINE CULTURE Microbiology Routine Burning with urination 05/31/2023 12:28 PM EST [facility] Work Phone: COVID & INFLUENZA A/ B & RSV PCR, ROUTINE COVID & INFLUENZA A/B & RSV PCR, ROUTINE Microbiology Routine Flu-like symptoms Ordered: 08/06/2024 [facility] Work Phone: Comment on above: Ordered: 08/06/2024 End: 02-12-2024 CT BRAIN WO IVCON CT BRAIN WO IVCON Radiology STAT Memory loss Current severe episode of major 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 features, unspecified whether recurrent (HCC) Left-sided weakness 1 Occurrences starting 01/13/2023 until 02/12/2024 [facility] Work Phone: Comment on above: 1 Occurrences starti ng 01/13/2023 until 02/12/2024 ECG COMPLETE ECG COMPLETE ECG Routine Chest pain, unspecified type Ordered: 11/05/2024 [facility] Work Phone: Comment on above: Ordered: 11/05/2024 End: 11-05-2025 Echocardiography ECHO Cardiology Routine Chest pain, unspecified type 1 Occurrences starting 11/05/2024 until 11/05/2025 [facility] Comment on above: 1 Occurrences starti ng 11/05/2024 until 11/05/2025 End: 03-10-2024 RENA SCREENING RENA SCREENING Radiology Routine Encounter for screening mammogram for breast cancer 1 Occurrences starting 02/09/2023 until 03/10/2024 [facility] Work Phone: Comment on above: 1 Occurrences starti ng 02/09/2023 until 03/10/2024 MG Breast Screening RENA SCREENIN G Radiology Routine Encounter for screening mammogram for breast cancer 10/04/2023 7:53 AM EDT [facility] Work Phone: MG Breast Screening RENA SCREENIN G Radiology Routine Visit for screening mammogram Ordered: 09/13/2024 [facility] Work Phone: Comment on above: Ordered: 09/13/2024 End: 03-03-2026 MR Cervical spine WO contrast MRI CERVICAL SPINE WO IVCON Radiology Routine Right leg numbness 1 Occurrences starting 02/01/2025 until 03/03/2026 [facility] Work Phone: Comment on above: 1 Occurrences starti ng 02/01/2025 until 03/03/2026 End: 03-03-2026 MR Thoracic spine WO contrast MRI THORACIC SPINE WO IVCON Radiology Routine Right leg numbness 1 Occurrences starting 02/01/2025 until 03/03/2026 [facility] Comment on above: 1 Occurrences starti ng 02/01/2025 until 03/03/2026 Patient Education [facility] Work Phone: Patient referral [facility] Work Phone: End: 05-03-2024 Radex spine cervical 4 or 5 views XR CERV OTHER 4V AP/LAT/FLX/EXT Radiology Routine Osteoarthritis of spine with radiculopathy, cervical region 1 Occurrences starting 04/04/2023 until 05/03/2024 [facility] Work Phone: Comment on above: 1 Occurrences starti ng 04/04/2023 until 05/03/2024 End: 04-02-2023 Screening mammography bi 2-view breast inc cad RENA SCREENING Radiology Routine Encounter for screening mammogram for breast cancer 1 Occurrences starting 03/03/2022 until 04/02/2023 [facility] Work Phone: Comment on above: 1 Occurrences starti ng 03/03/2022 until 04/02/2023 End: 07-04-2025 US Breast - left limited US BREAST LTD LEFT Radiology Routine Mass of axillary tail of left breast 1 Occurrences starting 06/04/2024 until 07/04/2025 [facility] Work Phone: Comment on above: 1 Occurrences starti ng 06/04/2024 until 07/04/2025 End: 01-30-2026 US Lower extremity vein - right US DVT LOWER RIGHT Radiology Routine Right calf pain 1 Occurrences starting 12/31/2024 until 01/30/2026 [facility] Work Phone: Comment on above: 1 Occurrences starti ng 12/31/2024 until 01/30/2026 US Lower extremity v ein - right US DVT LOWER RIGHT Radiology Routine Right calf pain 12/31/2024 5:31 PM EDT [facility] End: 10-01-2025 US.doppler Extremity arteries - bilateral for physiologic artery study PVR ANK PRESS [facility] Lab Routine Onychodystrophy Diminished pulses in lower extremity 1 Occurrences starting 10/01/2024 until 10/01/2025 [facility] Work Phone: Comment on above: 1 Occurrences starti ng 10/01/2024 until 10/01/2025 [facility] Immunizations Immunization Date Immunization Notes Care Provider Nicho hennessy 04-17-2024 COVID-19 vaccine, ag e 12+ yr (Compete-[employer] [facility]) Jeanie Guerrautzman [employer] Work Phone: [facility] 04-17-2024 influenza virus vacc ine, unspecified formulation RONNIE BAL INSPECTOR MATERIAL DISPOSITION-[employer] [facility] 04-17-2024 influenza, high dose seasonal, preservative-free Jeanie Cortez INSPECTOR MATERIAL DISPOSITION.[employer] Work Phone: [facility] 04-17-2024 SARS-CoV-2 (COVID-19 ) [id number] RONNIE BAL INSPECTOR MATERIAL DISPOSITION-[employer] [facility] Comment on above: Result Comment: 2024: [id number] 10-03-2023 respiratory syncytia l virus (RSV) vaccine, bivalent (ABRYSVO) Jeanie Guerrautzman ANNELISE.[employer] Work Phone: [facility] 10-03-2023 RSV vaccine, preF A- preF B, recombinant RONNIE BAL INSPECTOR MATERIAL DISPOSITION-[employer] [facility] 03-16-2023 SARS-CoV-2 (COVID-19 ) [id number] RONNIE BAL INSPECTOR MATERIAL DISPOSITION-[employer] [facility] 03-04-2023 influenza (HD-IIV4) vaccine, age 65+ yr, high dose, quadrivalent, PF (FLUZONE HIGH-DOSE) El Driver DO Work Phone: [facility] Work Phone: 03-04-2023 influenza virus vacc ine, unspecified formulation El Driver DO Work Phone: [facility] 03-01-2022 influenza virus vacc ine, unspecified formulation RONNIE TRAYLORANNE INSPECTOR MATERIAL DISPOSITION-[employer] [facility] 10-09-2021 SARS-CoV-2 (COVID-19 ) [id number] vaccine RONNIEALEXIS BROWNINGCris INSPECTOR MATERIAL DISPOSITION-[employer] [facility] 04-28-2021 SARS-CoV-2 (COVID-19 ) [id number] vaccine RONNIE TRAYLORANNE INSPECTOR MATERIAL DISPOSITION-[employer] [facility] 04-18-2021 influenza virus vacc ine, unspecified formulation RONNIE TRAYLORANNE INSPECTOR MATERIAL DISPOSITION-[employer] [facility] 09-18-2020 COVID-19 vaccine, fu ll dose (MODERNA) Elizabeth Zandra INSPECTOR MATERIAL DISPOSITION.[employer] Work Phone: [facility] 08-21-2020 COVID-19 vaccine, fu ll dose (MODERNA) Elizabeth Zandra INSPECTOR MATERIAL DISPOSITION.[employer] Work Phone: [facility] Work Phone: 05-08-2020 zoster vaccine recombinant Elizabeth Zandra INSPECTOR MATERIAL DISPOSITION.[employer] Work Phone: [facility] 03-01-2020 influenza virus vacc ine, unspecified formulation RONNIE LAYTONANNE INSPECTOR MATERIAL DISPOSITION-[employer] [facility] 03-01-2020 influenza, seasonal, injectable Elizabeth Zandra INSPECTOR MATERIAL DISPOSITION.[employer] Work Phone: [facility] 03-01-2020 pneumococcal conjuga te vaccine, 13 valent Elizabeth Zandra INSPECTOR MATERIAL DISPOSITION.[employer] Work Phone: [facility] 03-01-2020 zoster vaccine recombinant Elizabeth Azndra INSPECTOR MATERIAL DISPOSITION.[employer] Work Phone: [facility] 07-03-2019 influenza virus vacc ine, unspecified formulation RONNIE TRAYLORANNE INSPECTOR MATERIAL DISPOSITION-[employer] [facility] 07-03-2019 influenza, injectabl e, quadrivalent, preservative free Dr. El Driver Work Phone: [facility] 07-03-2019 influenza, seasonal, injectable [facility] 07-03-2019 influenza, seasonal, injectable, preservative free Elizabeth Zandra INSPECTOR MATERIAL DISPOSITION.[employer] Work Phone: [facility] 08-22-2018 pneumococcal conjuga te vaccine, 13 valent Elizabeth Zandra INSPECTOR MATERIAL DISPOSITION.[employer] Work Phone: [facility] Work Phone: 05-19-2018 influenza virus vacc ine, unspecified formulation RONNIE NAMN INSPECTOR MATERIAL DISPOSITION-[employer] [facility] 05-19-2018 influenza, injectabl e, quadrivalent, contains preservative Elizabeth Zandra INSPECTOR MATERIAL DISPOSITION.[employer] Work Phone: [facility] 05-19-2018 tetanus toxoid, redu nina diphtheria toxoid, and acellular pertussis vaccine, adsorbed Elizabeth Zandra INSPECTOR MATERIAL DISPOSITION.[employer] Work Phone: [facility] 03-24-2017 influenza virus vacc ine, unspecified formulation RONNIE KENVALENTINAN INSPECTOR MATERIAL DISPOSITION-[employer] [facility] 03-24-2017 influenza, injectabl e, quadrivalent, contains preservative Elizabeth Zandra INSPECTOR MATERIAL DISPOSITION.[employer] Work Phone: [facility] 05-19-2016 influenza, injectabl e, quadrivalent, contains preservative Elizabeth Zandra INSPECTOR MATERIAL DISPOSITION.[employer] Work Phone: [facility] Work Phone: 04-24-2014 influenza virus vacc ine, unspecified formulation RONNIE KENNEN INSPECTOR MATERIAL DISPOSITION-[employer] [facility] 04-24-2014 influenza, seasonal, injectable Elizabeth Zandra INSPECTOR MATERIAL DISPOSITION.[employer] Work Phone: [facility] Work Phone: 03-27-2013 influenza virus vacc ine, unspecified formulation Elizabeth Zandra INSPECTOR MATERIAL DISPOSITION.[employer] Work Phone: [facility] 04-05-2011 influenza virus vacc ine, unspecified formulation Elizabeth Zandra INSPECTOR MATERIAL DISPOSITION.[employer] Work Phone: [facility] 08-07-2009 novel influenza-H1N1 -09, preservative-free, injectable Elizabeth Zandra INSPECTOR MATERIAL DISPOSITION.[employer] Work Phone: [facility] 04-08-2009 influenza virus vacc ine, unspecified formulation Elizabeth Zandra INSPECTOR MATERIAL DISPOSITION.[employer] Work Phone: [facility] 04-30-2008 influenza virus vacc ine, unspecified formulation Elizabeth Zandra INSPECTOR MATERIAL DISPOSITION.[employer] Work Phone: [facility] 04-30-2008 pneumococcal polysaccharide vaccine, 23 valent Elizabeth Zandra INSPECTOR MATERIAL DISPOSITION.[employer] Work Phone: [facility] 08-01-2000 hepatitis B pediatri c vaccine RONNIE KENNEN INSPECTOR MATERIAL DISPOSITION-[employer] [facility] 08-01-2000 hepatitis B vaccine, pediatric or pediatric/adolescent dosage Elizabeth Zandra INSPECTOR MATERIAL DISPOSITION.[employer] Work Phone: [facility] 05-25-2000 hepatitis B pediatri c vaccine RONNIE KENNEN INSPECTOR MATERIAL DISPOSITION-[employer] [facility] 05-25-2000 hepatitis B vaccine, pediatric or pediatric/adolescent dosage Elizabeth Zandra INSPECTOR MATERIAL DISPOSITION.[employer] Work Phone: [facility] 04-17-1999 hepatitis B pediatri c vaccine RONNIE KENNEN INSPECTOR MATERIAL DISPOSITION-[employer] [facility] 04-17-1999 hepatitis B vaccine, pediatric or pediatric/adolescent dosage Elizabeth Zandra INSPECTOR MATERIAL DISPOSITION.[employer] Work Phone: [facility] Payers Date Payer Category Payer Self-pay [id number] 2024 Private Health Insurance [id number] 2022 Medicare (Managed Care) [facility] MEDICARE HMO [id number] 2022 Private Health Insurance [id number] 2021 Unknown [employer] PPO [id number] 2021-Present [phone] [address] [place] [address] PPO [id number] 2021 Unknown [employer] PPO [id number] 2021-Present [phone] [address] [place] [address] PPO [id number] 2021 Unknown [id number] 2020 Unknown [employer] THP [id number] 2020-2021 [address] [place] [address] PPO [id number] 2017 Medicare MEDICARE MEDICAR E A AND B [id number] 2017-Present [phone] [place] [address] Medicare [id number] 2017 Medicare [id number] 2016 Private Health Insurance [facility] [id number] 1955 Unknown [id number] 1955 Unknown [id number] Medicare MEDICARE PART A B [id number] Unknown [employer] [id number] Unknown [id number] Social History Date Type Detail Facility Start: 11-24-2018 End: 03-20-2025 Tobacco smoking status SCIS Ex-smoker [facility] Work Phone: Start: 03-29-1967 End: 08-18-2018 History of tobacco use Current smoker [facility] Work Phone: Start: 03-29-1967 End: 08-18-2018 History of tobacco use Cigarette Smoker [facility] Work Phone: Start: 11-24-2018 End: 11-30-2022 Cigarettes smoked current (pack per day) - Reported 0.5 [facility] Start: 11-24-2018 End: 04-17-2024 Tobacco use and exposure Smokeless tobacco non-user [facility] Work Phone: Start: 09-30-2021 End: 01-24-2025 Alcohol intake Current non-drinker of alcohol (finding) [facility] Start: 1955 Sex Assigned At Not on file [facility] Start: 09-20-2021 End: 11-23-2021 Exposure to SARS-CoV-2 (event) Not sure [facility] Start: 11-24-2021 End: 12-04-2021 Exposure to SARS-CoV-2 (event) Yes [facility] Work Phone: Start: 09-19-2022 End: 10-11-2023 Tobacco smoking status NHIS Unknown if ever smoked [facility] Start: 10-06-2020 Rare [facility] Start: 10-06-2020 None [facility] Start: 10-06-2020 Spouse/ Signif icant Other [facility] Start: 07-02-2019 Cigarettes [facility] Start: 1955 Sex Assigned At Female [facility] Start: 08-30-2022 End: 11-30-2022 Tobacco use panel [facility] Start: 05-21-2012 Adult Depression Screening Assessment 2 [facility] How often to you hav e a drink containing alcohol? Never [facility] Sexual Orientation [facility] Start: 11-09-2006 Sex Female (finding) [facility] Medical Equipment Procedure Code Equipment Code Equipment Original Text Equipment Identifier Dates [id number], [id number], [id number], [id number], [id number], [id number], [id number] Start: 10-13-2017 End: 11-15-2025 Comment on above: Test blood sugar(s) 2 times daily. Dx: Type 2 DM - Uncontrolled E11.65 Insulin: Yes Inject with Insulin two times a day or as directed. Reli-on brand preferred. Dx: E11.65 Test blood sugar(s) BID times daily. Dx: Type 2 DM - Uncontrolled E11.65 Insulin: Yes inject with insulin Four times a day with each meal and at bedtime as directed Functional Status Date Assessment Result Facility 07-15-2022 Functional Status Standard Safet y ID band on, Allergy Band on, Call device within reach, Bed in low position, Wheels locked, Upper/Half-Length side-rails up, Bedside Cart Locked, Safety level maintained [facility] 12-25-2014 Are you deaf, or do you have serious difficulty hearing No 12/25/2014 9:45 AM EDT Mandy Lerma Ma No [facility] 12-25-2014 Are you blind, or do you have serious difficulty seeing, even when wearing glasses No 12/25/2014 9:45 AM DAVON Lerma Mandy Agrawal No [facility] 12-25-2014 Do you have serious difficulty walking or climbing stairs No 12/25/2014 9:45 AM DAVON Mandy Lerma Ma No [facility] 12-25-2014 Do you have difficul ty dressing or bathing No 12/25/2014 9:45 AM DAVON Mandy Lerma Ma No [facility] 12-25-2014 Because of a physica l, mental, or emotional condition, do you have difficulty doing errands alone such as visiting a physician's office or shopping No 12/25/2014 9:45 AM DAVON Mandy Lerma Ma [facility] Mental Status Date Assessment Result Facility 09-19-2022 Cognitive function Level Of Cons ciousness Awake;Alert;Appropriate [facility] Work Phone: 07-15-2022 Mental Status Orientation Oriented x 4 [facility] 12-25-2014 Because of a physica l, mental, or emotional condition, do you have serious difficulty concentrating, remembering, or making decisions No 12/25/2014 9:45 AM DAVON Mandy Leram Ma No [facility] Clinical Notes 02-19-2015 to 04-09-2025 Note Date & Type Note Facility 04-09-2025 Note HNO ID: [id number] Author: MEENAKSHI HAMM, ? Service: ? Author Type: Physician Type: Progress Notes Filed: 04/09/2025 13:27 Note Text: Subjective The patient is a 69-year-old female with DM, neuropathy, and PAD presenting for follow-up of a right foot wound. The patient developed a wound on her right foot a few weeks ago that progressed to cellulitis. She initially saw her PCP for redness and swelling, but was told there was no infection. The condition worsened, with a red streak developing up her foot and severe pain prompting an ER visit. She received IV antibiotics in the ER and was discharged with oral antibiotics. Wound culture grew Staph aureus, and she was prescribed Keflex, which she is still completing. She reports significant improvement in pain. She reports chronic leg pain, particularly in the right leg, and describes a pulling sensation in the back of her leg when climbing stairs that feels as though it could "break open." She denies leg pain when sleeping or walking on level ground. She has not previously seen a vascular specialist. She has neuropathy with decreased sensation in her right forefoot and both feet. She wears old, flimsy shoes that do not rub or cause pain, and she denies current interest in toenail removal. She is a former smoker. Cardiovascular: (+) exertional leg pain with stair climbing, (-) nocturnal leg pain Musculoskeletal: (+) burning pain right foot Objective There were no vitals taken for this visit. - Cardiovascular: Dorsalis pedis and posterior tibial pulses non-palpable bilaterally. Capillary refill time >5 seconds. Skin temperature warm to cool from proximal to distal. No hair growth present bilaterally. - Skin: Erythema of right foot resolved. Evidence of prior blister formation on the lateral aspect of the right fifth metatarsal, appears healed. No drainage, erythema, or signs of infection. No open wounds noted bilaterally. Pressure points noted along the left fifth metatarsal head and left fifth metatarsal styloid process. - Neurological: Protective sensation absent in the right forefoot. Vibratory sensation absent in both feet. Labs: - (03/29) Wound Culture: Staphylococcus aureus isolated Tests AND Prior Procedures: - (04/05) - Ankle-Brachial Index: - Right dorsalis pedis: 0.54 - Right posterior tibial: 0.71 (partially noncompressible) - Left dorsalis pedis: 0.68 - Left posterior tibial: 0.76 - Toe-Brachial Index: - Right: 0.0 - Left: 0.51 Assessment AND Plan # Ulcer of toe of right foot, limited to breakdown of skin ([facility]) (L97.511) # Cellulitis and abscess of toe of right foot (L03.031) Right fifth metatarsal ulcer and associated cellulitis are now resolved following antibiotic therapy (Keflex) for Staphylococcus aureus infection. - Continue remaining course of Keflex as previously prescribed until complete - Educated patient on importance of prompt medical attention for any new wounds, delayed healing, or signs of infection, and to present to the ER if wounds fail to heal, worsen, or new wounds develop. - Follow-up in 3 months. # Diabetic polyneuropathy associated with type 2 diabetes mellitus ([facility]) (E11.42) # Callus of foot (L84) Diabetic neuropathy with absent vibratory sensation in both feet and absent sensation in the right forefoot; history of callus formation. - Educated patient on the importance of avoiding barefoot walking and wearing properly fitting, wide, mesh shoes to prevent pressure ulcers and callus formation. - Advised against toenail removal due to risk of poor healing. - Order diabetic shoes due to neuropathy, vascular disease, history of callus, and prior ulceration. - Plan to trim toenails at each follow-up visit. # PAD (peripheral artery disease) (I73.9) Significant bilateral lower extremity PAD with worse disease on the right, as evidenced by circulation studies on 04/05 showing right dorsalis pedis GODFREY 0.54, posterior tibial GODFREY 0.71 (partially non-compressible), left dorsalis pedis GODFREY 0.68, posterior tibial GODFREY 0.76, right toe pressure 0.0, and left toe pressure 0.51. - Educated patient on the risks of slow or non-healing wounds and potential limb loss due to PAD. - Refer to vascular surgery (Dr. Leta Paredes) for further evaluation and management. - Advised patient to report any new wounds or signs of poor healing immediately. Recording using SpiderSuite software for draft documentation of the visit was discussed with the patient/authorized construction sales representative; all questions welcomed and answered. Patient/authorized construction sales representative agreed to proceed Meenakshi Hamm DPM [facility] 04-09-2025 Note HNO ID: [id number] Author: BETTINA DARNELL LPN Service: ? Author Type: Licensed Nurse Type: Progress Notes Filed: 04/09/2025 13:27 Note Text: AMB ROOMING INTAKE FLOWSHEET DATA Pain Pain Level: 9 Pain Location: Foot-Right Description: Stabbing Duration Amount of Time: 2 Duration Units: Weeks Frequency: Intermittent Intervention/Comfort measure: Reposition, Relaxation Patient presents with: Right Foot - Pain, Swelling, Established Patient Bettina Darnell LPN [facility] 03-26-2025 Note HNO ID: [id number] Author: MEENAKSHI HAMM, ? Service: ? Author Type: Physician Type: Progress Notes Filed: 03/26/2025 19:15 Note Text: Subjective The patient is a 69-year-old female with DM presenting for evaluation of right foot pain and swelling. The patient reports pain and swelling in her right foot for the past 1.5 months, with increased severity over the past 3 weeks. She describes the pain as severe and reports that the foot was bright red with a streak of erythema extending up the foot. She denies any open wounds, trauma, or wearing tight shoes. She has been unable to walk at times due to the pain. She was initially evaluated by Dr. Driver, who ordered blood work and x-rays on 03/11. She was referred to podiatry but could not get an appointment until the end of the next month. On 03/20, she was seen by Luz Arita at the [facility], who sent her to the ER for further evaluation. In the ER, she received IV vancomycin and morphine, and was discharged home with Keflex and Diflucan. She was diagnosed with cellulitis. She reports that the foot is improving, but she continues to have significant pain, particularly to touch. She has been taking Keflex twice daily instead of every 6 hours as prescribed due to nausea. She denies tobacco and alcohol use. Musculoskeletal: (+) right foot pain, (+) right foot swelling, (+) difficulty walking Skin: (+) right foot erythema, (+) right foot blister Neurological: (+) right foot numbness Gastrointestinal: (+) nausea Objective There were no vitals taken for this visit. - Cardiovascular: Dorsalis pedis and posterior tibial pulses faintly palpable bilaterally; capillary refill time <5 seconds. - Skin: Warm temperature from proximal to distal. - Musculoskeletal: - Right Foot: - Erythema noted, appears to be decreasing; increased swelling. - Small black discolored lesion on dorsal aspect of right foot; blistering on lateral aspect of right fifth metatarsal. - Two superficial wounds following debridement with clear discharge; wound on top of right fifth toe measures 2mm x 2mm; wound on lateral aspect of right fifth metatarsal measures 4mm x 4mm; no deep subcutaneous involvement, no exposed tendon or bone. - toenails 1-5 b/l are elongated, discolored, painful. - Neurological: Protective sensation decreased bilaterally. Labs: - (03/20) CBC: - WBC: 8.7 - (03/11) - Uric Acid: 5.7 - CRP: <0.3 - ESR: 5 - CBC: - WBC: 6.66 - Hemoglobin A1c: 6.0 - CMP: - Glucose: 116 Imaging: - (03/20) Right foot X-ray: No acute findings. - (03/11) Right foot X-ray: Mild first metatarsophalangeal osteoarthritis; calcaneal spurs; no acute abnormalities. Assessment AND Plan # Ulcer of toe of right foot, limited to breakdown of skin (HCC) (L97.511) # Cellulitis and abscess of toe of right foot (L03.031) Two superficial wounds on the right foot with clear discharge, no deep subcutaneous involvement, exposed tendon, or bone. Cellulitis is improving with antibiotics, but wounds may be the source of infection. - today, I discussed the appearance of right foot with the concern of underlying cellulitis in the presence of superficial wounds. Discussed debridement for further evaluation. discussed risk of slow healing in the event any underlying pad exists. Informed patient that if these wounds are not cleaned/debrided, she could be at risk for further infection. she elected to proceed. The right foot was injected wtih 3 cc of 1% lidocaine plain. - Debrided superficial wounds after local anesthesia with 15 blade. debridement was performed thru dermis. Patient has one one to the top of right 5th toe that measures 2 mm x 2 mm. She has wound to the lateral aspect of right 5th metatarsal that measures 4 mm x 4 mm - Obtained wound swab for culture. - Continue Keflex; advised to take every 8 hours if possible, and not less than 3 times daily. - Apply Silvagel daily after cleaning wounds with soap and water and drying thoroughly; cover with Band-Aid or gauze. - Provided surgical shoe to offload pressure and promote healing. - Advised to present to the ER if condition worsens. - Follow-up in 2 weeks. # Onychodystrophy (L60.3) Onychodystrophy noted; nail removal deferred pending vascular studies. - Discussed potential nail removal if circulation is adequate. - toenails 1-5 b/l debrided in length and thickness # Diminished pulses in lower extremity (R09.89) Faintly palpable dorsalis pedis and posterior tibial pulses bilaterally; capillary refill <5 seconds. - Ordered PVR studies to assess lower extremity circulation. # Diabetic polyneuropathy associated with type 2 diabetes mellitus (HCC) (E11.42) Recording using SpiderSuite software for draft documentation of the visit was discussed with the patient/authorized construction sales representative; all questions welcomed and answered. Patient/authorized construction sales representative agreed to proceed Dylan (more content not included)... [facility] 03-26-2025 Note HNO ID: [id number] Author: TALYA MARCOS MA Service: ? Author Type: Prepress Operator Type: Progress Notes Filed: 03/26/2025 19:15 Note Text: Per Dr. Hamm instruction polysporin ointment, non stick pad, gauze wrap, and kj wrap applied. Per Dr. HammCarlos was provided with Post op shoe, size Large, and instructed/educated in its application, wear, and care. All questions were answered, and patient was able to demonstrate competence with the necessary skills to utilize the above equipment. Talya Marcos MA [facility] 03-26-2025 Note HNO ID: [id number] Author: TALYA MARCOS MA Service: ? Author Type: Prepress Operator Type: Progress Notes Filed: 03/26/2025 19:15 Note Text: AMB ROOMING INTAKE FLOWSHEET DATA Pain Pain Level: 4 Pain Location: Foot-Right Description: Numbness, Dull, Aching Duration Amount of Time: 2 Duration Units: Months Frequency: Continuous Intervention/Comfort measure: Medication Comments: Cephalexin has finally helped since starting 03/20 per ER [facility] 03-20-2025 Discharge summary Note Date/Time March 20, 2025 7:07pm [facility] Medical Records Department [address] [place] [address] Emergency Department Summary 03/20/25 MR#: [id number] Acct: [id number] Name: CARLOS COVARRUBIAS Rep #:[id number] : 1955 69 From: Chris Medina MD PCP: Dr. El Driver, Status:RE G ER Location: ED HPI History of Present Illness Chief Complaint: Cellulitis Informant: patient and family (daughter) Narrative Narrative: Patient is a 69-year-old female with a history of DM presenting with right foot pain and erythema. Patient is accompanied by her daughter, who is supplementing history. - Reports severe right foot pain and erythema for the past 1.5 months, worseningover the past week. - Pain is described as "excruciating" and is not relieved by current analgesics;currently taking [place], which she started 2-3 days ago. - Denies fever. - Reports an itchy rash on her left upper arm, which she suspects may be relatedto [place] use, latter started 3d ago, but no rash elsewhere. - Denies any other acute issues besides right foot pain and erythema. - Denies any recent trauma to the foot. - Reports a fall 2 months ago, during which she "guided herself down" and did not sustain any injuries. - Has a history of previous infections. - Recent blood work reportedly negative for gout. - Has a scheduled appointment with a high school academic coach this coming Tuesday. [facility] Medical History Encounter for screening for malignant neoplasm of lung PAD (peripheral artery disease) SOB (shortness of breath) Carotid artery disease Macular degeneration ASCVD (arteriosclerotic cardiovascular disease) DDD (degenerative disc disease), cervical Cervical radiculopathy Paraspinal muscle spasm Encounter for screening for malignant neoplasm of lung in former smoker who quitin past 15 years with 30 pack year history or greater Former smoker Hemoglobin A1c greater than 8.0% Neoplasm of skin of back 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 Vitamin deficiency Vision problems Pneumonia Neuropathy Recurrent infections Hormone deficiency Anxiety and depression Chronic bronchitis Cataracts, bilateral Breast lump UTI (urinary tract infection) Back problem Arthritis GERD (gastroesophageal reflux disease) Obesity Exertional chest pain (10/06/20) Cellulitis Nonobstructive atherosclerosis of coronary artery Essential (primary) hypertension osteomyelitis left rib Tobacco user Dyslipidemia Diabetes mellitus, type 2 Agitated depression Home Medications ?Medication ?Instructions ?Recorded ?Last Taken ?Type aspirin 81 mg tablet,delayed 81 mg PO DAILY heart heal th 02/05/16 07/01/19 20:00 History release 81 mg glimepiride 2 mg tablet 2 mg PO DAILY diabetes 02/0407/02/19 10:00 History 2 mg vit C 250 mg-vit E 90 mg-zinc 40 1 cap PO BID vitamin 07/02/19 07/02/19 10:00 History mg-copper 1 [id number] 1 capsule capsule atorvastatin 40 mg tablet 40 mg PO QHS cholesterol #30 tabs 07/03/19 Unknown Rx calcium carbonate (Calcium 500) 500 mg PO DAILY Unknown History cholecalciferol (vitamin D3) 50 50 mcg PO DAILY Unknown History mcg (2,000 unit) capsule lactobacillus combination no.9 4 4,000 mmu cells PO DA NADINE 07/16/21 Unknown History billion cell capsule (Adult 50 Plus Probiotic) hydrocodone-acetaminophen 5-325mg 1 tab PO Q6H PRN PRN Pain 3 days 01/20/23 Unknown Rx 5mg-325mg #10 TABLETS insulin NPH isoph U-100 human 100 35 unit subcut QAM 0 01/26/23 Unknown History unit/mL subcutaneous suspension (Humulin N NPH U-100 Insulin (isophane susp)) insulin NPH isoph U-100 human 100 45 unit subcut QPM 0 01/26/23 Unknown History unit/mL subcutaneous suspension (Humulin N NPH U-100 Insulin (isophane susp)) insulin regular human 100 unit/mL 37 unit subcut DAILY diabetes 01/26/23 Unknown History injection solution lisinopril 20 mg tablet 30 mg PO DAILY 01/26/23 Unkn own History omeprazole 40 mg capsule,delayed 40 mg PO BID reflux 0 01/26/23 Unknown History release ondansetron 4 mg disintegrating 4 mg PO Q8H PRN nausea and vomiting 01/26/23 Unknown History tablet trazodone 100 mg tablet 200 mg PO QHS sleep 01/26/23 Unknown History mecobalamin (vitamin B12) 1,000 1,000 mcg PO DAILY 04/11 Unknown History mcg chewable tablet cephalexin 500 mg capsule 500 mg PO Q6 #40 CAPSULES Unknown Rx fluconazole 150 mg tablet 150 mg PO .once #1 TAB 03/20 Unknown Rx gabapentin 300 mg capsule 1,200 mg PO QHS 03/20/25 Unk nown History gabapentin 300 mg capsule 300 mg PO DAILY 03/20/25 Unk nown History magnesium oxide 400 mg (241.3 mg 400 mg PO DAILY 03/20 Unknown History magnesium) tablet sertraline 50 mg tablet 50 mg PO DAILY 03/20/25 Unkn own History tramadol 50 mg tablet 50 - 100 mg PO Q6H PRN PRN p ain 03/20/25 Unknown History Allergy/AdvReac Type Severity Reaction Status Date / Time Iodinated Contrast Media Allergy Severe Nausea/Vom/ Verified 03/20/25 15:55 Diarrhea exenatide (From Bykathryn) Allergy Intermediate Nausea/Vom/ Verified 03/20/25 15:55 Diarrhea amoxicillin (From Augmentin) AdvReac Mild Nausea/Vom/ Verified 03/20/25 15:55 Diarrhea cefdinir (From Omnicef) AdvReac Mild Nausea/Vom/ Verified 03/20/25 15:55 Diarrhea clarithromycin (From Biaxin) AdvReac Mild Other Verified 03/20/25 15:55 clavulanic acid (From AdvReac Mild Nausea/Vom/ Verified 03/20/25 15:55 Augmentin) Diarrhea metformin AdvReac Mild Nausea/Vom/ Verified 03/20/25 15:55 Diarrhea Latex, Natural Rubber AdvReac hives Verified 03/20/25 15:55 Family History Mother Diabetes CVA (cerebral vascular accident) Hypertension High cholesterol Father CAD (coronary artery disease) Brother Cancer Alcoholism CAD (coronary artery disease) Brother Cancer CAD (coronary artery disease) Brother Cancer CAD (coronary artery disease) Daughter Anxiety Sister Depression Diabetes Heart disease High cholesterol CAD (coronary artery disease) Son Diabetes Sister Depression Diabetes Surgical History Hx of septic arthritis History of laminectomy History of cholecystectomy History of hysterectomy History of left heart catheterization (07/03/19) Social History Smoking Status: Former smoker quit date: 06/20/18 pack-years: 47 Tobacco: How many years used: 47 how long ago did patient quit smokin06/20/18 second hand exposure: No quit status: quit date established alcohol intake: never substance use type: does not use caffeine: Yes Type: carbonated beverages Number of servings: 4 additional social history: Does Take Aspirin Daily Does Not Take Ibuprofen ROS ROS ED Constitutional Constitutional ED: Denies chills or fever(s) Eyes Eyes: Denies change in vision or diplopia ENT ENT ED: Denies rhinorrhea or sore throat Cardiovascular Cardiovascular: Denies chest pain or palpitations Respiratory/Chest Respiratory/Chest: Denies cough or dyspnea Gastrointestinal Gastrointestinal: Denies abdominal pain, diarrhea, nausea or vomiting Genitourinary Genitourinary ED: Denies dysuria or hematuria Musculoskeletal Musculoskeletal: Reports extremity pain; Denies neck pain Integumentary Reports rash and wounds; Denies Abrasions Neurologic Neurologic: Denies paresthesias or weakness Psychiatric Psychiatric: Reports anxiety; Denies suicidal thoughts EXAM Physical Exam Const Vital Signs: 03/20/25 15:56 03/20/25 15:57 03/20/25 16:55 Temperature 99 F 99 F Temperature Source Oral Oral Pulse Rate 72 72 63 Respiratory Rate 18 18 18 Blood Pressure 121/105 H 121/105 H 138/56 H Blood Pressure Mean 110 110 83 Pulse Ox 98 98 98 Oxygen Delivery Method Room Air Room Air Room Air 03/20/25 16:57 03/20/25 18:00 Temperature 98.5 F 98.5 F Temperature Source Oral Oral Pulse Rate 75 65 Respiratory Rate 14 18 Blood Pressure 121/105 H 154/56 H Blood Pressure Mean 110 88 Pulse Ox 95 98 Oxygen Delivery Method Room Air Room Air Positive well nourished and well developed General Appearance ED: well developed and NAD HEENT Reports moist mucous membranes normocephalic and atraumatic Eyes PERRL and EOMs intact bilaterally Neck full ROM and supple Resp normal respiratory effort and clear to auscultation bilaterally Cardio regular rate, regular rhythm and no murmurs GI non-tender and non-distended Auscultation: normoactive bowel sounds Palpation: soft Back/Spine normal ROM and normal to inspection General Back: other FROM Extremity Extremity Narrative: Hyperemia throughout the entire right forefoot without tenderness except for thelateral dorsal aspect, where there are 2 very small papular sore areas around the fifth toe, there is mild swelling without fluctuance and significant tenderness here, as well as erythema that is relatively linear may be 2 cm wide,emanating diagonally across the dorsum of the forefoot toward the midfoot but not quite all the way to it, progresses approximately 5 cm. All of that very tender again without fluctuance or plantar findings. No subcutaneous emphysema. There is no tenderness more proximally in the ankle, lower leg, or thigh. Fullrange of motion of the ankle, knee, and hip without difficulty and no inguinal lymphadenopathy or tenderness. DP pulse 2+/4. Left lower extremity normal. Bilateral upper extremities unremarkable except for an urticarial rash and portion of the posterior aspect of the left upper arm but the entire upper arm is not affected and there are no rashes elsewhere. General Extremety ED: Yes tenderness; Negative for edema or pulses abnormal General Extremity: Negative for edema or pulses abnormal Neuro oriented x3, no focal motor deficits and no sensory deficits noted Sensorium / Orientation: alert Motor Exam: strength 5/5 throughout Psych mental status grossly normal and thought process normal Skin Skin Narrative: Skin abnormalities described in the extremity exam above, no other rashes no scleral icterus. No jaundice. MDM MDM MDM Narrative Medical decision making narrative: Labs: (Today) - WBC: Normal - ESR: Normal - CRP: Normal - Lactic acid: Normal Imaging: (Today) X-ray Right Foot (3 views): Normal, showing no signs of osteomyelitis orsubcutaneous air. Independently interpreted by Chris minor. Assessment: The patient is a 69-year-old female with PMH of type 2 diabetes mellitus without complications presenting for progressive right foot pain, erythema, and swelling. Given the diabetic status and exam findings, cellulitis is the most likely diagnosis; gout is less likely based on diffuse distribution lateral foot and prior negative testing. Normal WBC, ESR, CRP, lactate, and a normal 3-view right foot x-ray showing no osteomyelitis or subcutaneous air further support uncomplicated cellulitis without deep infection. She is hemodynamically stable and non-septic, so outpatient management is appropriate. I agree with patient and family that there are 2 small papular areas that could be wounds that were superficial, from where the cellulitis started, but there isno clinical evidence of an abscess or anything drainable at this time. Plan: - IV vancomycin 15 mg/kg administered in ED - Morphine given for analgesia; patient reports marked pain relief - Erythema borders outlined with skin marker for progression monitoring - Offered hospital admission; patient declined after discussion - Discharged home with oral antibiotic plan and strict return precautions - Follow-up with podiatry in 1 week already arranged - Education provided to patient and family; all agree with plan Diagnostics: - Labs: WBC, ESR, CRP, and lactate all within normal limits - 3-view right foot x-ray: no bony changes of osteomyelitis; no subcutaneous air; soft-tissue swelling only. Independently interpreted by Chris minor. Reevaluations: - Erythema stable within demarcated line; pain improved post-morphine; patient ambulates with assistance and comfortable with discharge plan Diagnoses: Cellulitis of right foot Type 2 diabetes mellitus without complications Lab Data Attestation: I reviewed the patient's lab results. Labs: Laboratory Results - last 24 hr 03/20/25 16:24 WBC 8.7 RBC 4.19 L Hgb 12.8 Hct 37.4 MCV 89.3 MCH 30.5 MCHC 34.2 RDW Std Deviation 39.8 RDW Coeff of Siri 12.3 Plt Count 234 MPV 9.8 Immature Gran % (Auto) 0.300 Neut % (Auto) 62.4 Lymph % (Auto) 28.9 [place] % (Auto) 7.6 Eos % (Auto) 0.3 Baso % (Auto) 0.5 Absolute Neuts (auto) 5.4 Absolute Lymphs (auto) 2.52 Nucleated RBC % 0 ESR 7 Sodium 139 Potassium 4.1 Chloride 102 Carbon Dioxide 25.4 Anion Gap 12 BUN 21 H Creatinine 0.92 Estim Creat Clear Calc 68.00 Est GFR (MDRD) Non-Af 67 BUN/Creatinine Ratio 23.1 H Glucose 189 H Lactic Acid 1.6 Calcium 9.3 C-React Prot Ext Range < 3.00 Radiography Diagnostic Testing: Clinical Impression(s) from Imaging Studies Foot X-Ray 03/20/25 16:40 IMPRESSION: No acute or aggressive osseous abnormality. Reading Location: [facility] Right foot 3 view x-ray series on my interpretation no evidence of subcutaneous emphysema or bony involvement in the area of clinical possible infection Discharge Plan Triage Chief Complaint: Cellulitis ED Provider: Chris Medina Dx/Rx/DC Orders Clinical Impression: Cellulitis of foot, right, Diabetes mellitus, type 2 Instructions: Cellulitis Dc Prescriptions: New cephalexin 500 mg capsule 500 mg PO Q6 Qty: 40 0RF fluconazole 150 mg tablet 150 mg PO .once Qty: 1 0RF No Action cholecalciferol (vitamin D3) 50 mcg (2,000 unit) capsule 50 mcg PO DAILY calcium carbonate [Calcium 500] 500 mg calcium (1,250 mg) tablet 500 mg PO DAILY Adult 50 Plus Probiotic 4 billion cell capsule 4,000 mmu cells PO DAILY Rx Instructions: administer with a meal ondansetron 4 mg tablet,disintegrating 4 mg PO Q8H PRN (Reason: nausea and vomiting) lisinopril 20 mg tablet 30 mg PO DAILY mecobalamin (vitamin B12) 1,000 mcg tablet,chewable 1,000 mcg PO DAILY insulin regular human 100 unit/mL solution 37 unit subcut DAILY aspirin 81 MG tablet,delayed release (DR/EC) 81 mg PO DAILY glimepiride 2 MG tablet 2 mg PO DAILY vit C,Y-Gq-snnqf-lutein-zeaxan 1 EACH capsule 1 cap PO BID atorvastatin 40 MG tablet 40 mg PO QHS Qty: 30 1RF trazodone 100 mg tablet 200 mg PO QHS omeprazole 40 mg capsule,delayed release(DR/EC) 40 mg PO BID Patient Comments: TAKE 1 CAPSULE TWICE DAILY hydrocodone-acetaminophen 5-325 mg tablet 1 tab PO Q6H PRN PRN (Reason: Pain) 3 Days Qty: 10 0RF Humulin N NPH U-100 Insulin 100 unit/mL suspension 35 unit subcut QAM Humulin N NPH U-100 Insulin 100 unit/mL suspension 45 unit subcut QPM tramadol 50 mg tablet 50 - 100 mg PO Q6H PRN PRN (Reason: pain) magnesium oxide 400 mg (241.3 mg magnesium) tablet 400 mg PO DAILY gabapentin 300 mg capsule 300 mg PO DAILY sertraline 50 mg tablet 50 mg PO DAILY gabapentin 300 mg capsule 1,200 mg PO QHS Primary Care Provider: El Driver Referrals: Meenakshi Hamm DPM [Med Staff - Active Staff, Podiatry] - Keep Francesca appointment Activity Restrictions/Additional Instructions: - You received an intravenous dose of the antibiotic vancomycin today (15 mg perkg) to treat the cellulitis in your right foot; please complete any additional antibiotic doses as directed. - Blood tests to check for infection (white blood cell count, inflammation markers, lactic acid) and a three-view x-ray of your right foot showed no signs of bone infection or sepsis. - Keep your podiatry appointment one week from today for further evaluation of your foot. - If redness spreads a significant amount outside of the lines drawn, and/or youare developing fevers, chills, or signs of sepsis, return to the ER. -To prevent antibiotic associated diarrhea and/or C. difficile, eat yogurt or take a probiotic at least once daily while you are on the antibiotics. Print Language: Gambian Disposition Disposition: Home, Self Care What to do if you have Problems For any increased pain, shortness of breath, bleeding, nausea or vomiting, chestpain, or any unexpected problems, contact your Primary Care Provider. Call [facility] ([phone]) or report to the closest Emergency Room. Call 911 if necessary. 03/20/251906 <Electronically signed by Chris Medina MD> Cosigner Signature (if applicable): CC: ERNESTO Hamm; Dr. El Driver, DO ~ Signed [facility] Work Phone: [phone] 471-384210-01-2025 Discharge summary [facility] Medical Records Department [address] [place] [address] Emergency Department Summary 03/20/25 MR#: [id number] Acct: [id number] Name: CARLOS COVARRUBIAS Rep #:[id number] : 1955 69 From: Chris Medina MD PCP: Dr. El Driver DO Status:RE G ER Location: ED HPI History of Present Illness Chief Complaint: Cellulitis Informant: patient and family (daughter) Narrative Narrative: Patient is a 69-year-old female with a history of DM presenting with right foot pain and erythema. Patient is accompanied by her daughter, who is supplementing history. - Reports severe right foot pain and erythema for the past 1.5 months, worseningover the past week. - Pain is described as "excruciating" and is not relieved by current analgesics;currently taking [place], which she started 2-3 days ago. - Denies fever. - Reports an itchy rash on her left upper arm, which she suspects may be relatedto [place] use, latter started 3d ago, but no rash elsewhere. - Denies any other acute issues besides right foot pain and erythema. - Denies any recent trauma to the foot. - Reports a fall 2 months ago, during which she "guided herself down" and did not sustain any injuries. - Has a history of previous infections. - Recent blood work reportedly negative for gout. - Has a scheduled appointment with a high school academic coach this coming Tuesday. [facility] Medical History Encounter for screening for malignant neoplasm of lung PAD (peripheral artery disease) SOB (shortness of breath) Carotid artery disease Macular degeneration ASCVD (arteriosclerotic cardiovascular disease) DDD (degenerative disc disease), cervical Cervical radiculopathy Paraspinal muscle spasm Encounter for screening for malignant neoplasm of lung in former smoker who quitin past 15 years with 30 pack year history or greater Former smoker Hemoglobin A1c greater than 8.0% Neoplasm of skin of back 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 Vitamin deficiency Vision problems Pneumonia Neuropathy Recurrent infections Hormone deficiency Anxiety and depression Chronic bronchitis Cataracts, bilateral Breast lump UTI (urinary tract infection) Back problem Arthritis GERD (gastroesophageal reflux disease) Obesity Exertional chest pain (10/06/20) Cellulitis Nonobstructive atherosclerosis of coronary artery Essential (primary) hypertension osteomyelitis left rib Tobacco user Dyslipidemia Diabetes mellitus, type 2 Agitated depression Home Medications ?Medication ?Instructions ?Recorded ?Last Taken ?Type aspirin 81 mg tablet,delayed 81 mg PO DAILY heart heal th 02/05/16 07/01/19 20:00 History release 81 mg glimepiride 2 mg tablet 2 mg PO DAILY diabetes 02/0407/02/19 10:00 History 2 mg vit C 250 mg-vit E 90 mg-zinc 40 1 cap PO BID vitamin 07/02/19 07/02/19 10:00 History mg-copper 1 iv-zdulcs-scdlvy 1 capsule capsule atorvastatin 40 mg tablet 40 mg PO QHS cholesterol #30 tabs 07/03/19 Unknown Rx calcium carbonate (Calcium 500) 500 mg PO DAILY Unknown History cholecalciferol (vitamin D3) 50 50 mcg PO DAILY Unknown History mcg (2,000 unit) capsule lactobacillus combination no.9 4 4,000 mmu cells PO DA NADINE 07/16/21 Unknown History billion cell capsule (Adult 50 Plus Probiotic) hydrocodone-acetaminophen 5-325mg 1 tab PO Q6H PRN PRN Pain 3 days 01/20/23 Unknown Rx 5mg-325mg #10 TABLETS insulin NPH isoph U-100 human 100 35 unit subcut QAM 0 01/26/23 Unknown History unit/mL subcutaneous suspension (Humulin N NPH U-100 Insulin (isophane susp)) insulin NPH isoph U-100 human 100 45 unit subcut QPM 0 01/26/23 Unknown History unit/mL subcutaneous suspension (Humulin N NPH U-100 Insulin (isophane susp)) insulin regular human 100 unit/mL 37 unit subcut DAILY diabetes 01/26/23 Unknown History injection solution lisinopril 20 mg tablet 30 mg PO DAILY 01/26/23 Unkn own History omeprazole 40 mg capsule,delayed 40 mg PO BID reflux 0 01/26/23 Unknown History release ondansetron 4 mg disintegrating 4 mg PO Q8H PRN nausea and vomiting 01/26/23 Unknown History tablet trazodone 100 mg tablet 200 mg PO QHS sleep 01/26/23 Unknown History mecobalamin (vitamin B12) 1,000 1,000 mcg PO DAILY 04/11 Unknown History mcg chewable tablet cephalexin 500 mg capsule 500 mg PO Q6 #40 CAPSULES Unknown Rx fluconazole 150 mg tablet 150 mg PO .once #1 TAB 03/20 Unknown Rx gabapentin 300 mg capsule 1,200 mg PO QHS 03/20/25 Unk nown History gabapentin 300 mg capsule 300 mg PO DAILY 03/20/25 Unk nown History magnesium oxide 400 mg (241.3 mg 400 mg PO DAILY 03/20 Unknown History magnesium) tablet sertraline 50 mg tablet 50 mg PO DAILY 03/20/25 Unkn own History tramadol 50 mg tablet 50 - 100 mg PO Q6H PRN PRN p ain 03/20/25 Unknown History Allergy/AdvReac Type Severity Reaction Status Date / Time Iodinated Contrast Media Allergy Severe Nausea/Vom/ Verified 03/20/25 15:55 Diarrhea exenatide (From [place]) Allergy Intermediate Nausea/Vom/ Verified 03/20/25 15:55 Diarrhea amoxicillin (From Augmentin) AdvReac Mild Nausea/Vom/ Verified 03/20/25 15:55 Diarrhea cefdinir (From Omnicef) AdvReac Mild Nausea/Vom/ Verified 03/20/25 15:55 Diarrhea clarithromycin (From Biaxin) AdvReac Mild Other Verified 03/20/25 15:55 clavulanic acid (From AdvReac Mild Nausea/Vom/ Verified 03/20/25 15:55 Augmentin) Diarrhea metformin AdvReac Mild Nausea/Vom/ Verified 03/20/25 15:55 Diarrhea Latex, Natural Rubber AdvReac hives Verified 03/20/25 15:55 Family History Mother Diabetes CVA (cerebral vascular accident) Hypertension High cholesterol Father CAD (coronary artery disease) Brother Cancer Alcoholism CAD (coronary artery disease) Brother Cancer CAD (coronary artery disease) Brother Cancer CAD (coronary artery disease) Daughter Anxiety Sister Depression Diabetes Heart disease High cholesterol CAD (coronary artery disease) Son Diabetes Sister Depression Diabetes Surgical History Hx of septic arthritis History of laminectomy History of cholecystectomy History of hysterectomy History of left heart catheterization (07/03/19) Social History Smoking Status: Former smoker quit date: 06/20/18 pack-years: 47 Tobacco: How many years used: 47 how long ago did patient quit smokin06/20/18 second hand exposure: No quit status: quit date established alcohol intake: never substance use type: does not use caffeine: Yes Type: carbonated beverages Number of servings: 4 additional social history: Does Take Aspirin Daily Does Not Take Ibuprofen ROS ROS ED Constitutional Constitutional ED: Denies chills or fever(s) Eyes Eyes: Denies change in vision or diplopia ENT ENT ED: Denies rhinorrhea or sore throat Cardiovascular Cardiovascular: Denies chest pain or palpitations Respiratory/Chest Respiratory/Chest: Denies cough or dyspnea Gastrointestinal Gastrointestinal: Denies abdominal pain, diarrhea, nausea or vomiting Genitourinary Genitourinary ED: Denies dysuria or hematuria Musculoskeletal Musculoskeletal: Reports extremity pain; Denies neck pain Integumentary Reports rash and wounds; Denies Abrasions Neurologic Neurologic: Denies paresthesias or weakness Psychiatric Psychiatric: Reports anxiety; Denies suicidal thoughts EXAM Physical Exam Const Vital Signs: 03/20/25 15:56 03/20/25 15:57 03/20/25 16:55 Temperature 99 F 99 F Temperature Source Oral Oral Pulse Rate 72 72 63 Respiratory Rate 18 18 18 Blood Pressure 121/105 H 121/105 H 138/56 H Blood Pressure Mean 110 110 83 Pulse Ox 98 98 98 Oxygen Delivery Method Room Air Room Air Room Air 03/20/25 16:57 03/20/25 18:00 Temperature 98.5 F 98.5 F Temperature Source Oral Oral Pulse Rate 75 65 Respiratory Rate 14 18 Blood Pressure 121/105 H 154/56 H Blood Pressure Mean 110 88 Pulse Ox 95 98 Oxygen Delivery Method Room Air Room Air Positive well nourished and well developed General Appearance ED: well developed and NAD HEENT Reports moist mucous membranes normocephalic and atraumatic Eyes PERRL and EOMs intact bilaterally Neck full ROM and supple Resp normal respiratory effort and clear to auscultation bilaterally Cardio regular rate, regular rhythm and no murmurs GI non-tender and non-distended Auscultation: normoactive bowel sounds Palpation: soft Back/Spine normal ROM and normal to inspection General Back: other FROM Extremity Extremity Narrative: Hyperemia throughout the entire right forefoot without tenderness except for thelateral dorsal aspect, where there are 2 very small papular sore areas around the fifth toe, there is mild swelling without fluctuance and significant tenderness here, as well as erythema that is relatively linear may be 2 cm wide,emanating diagonally across the dorsum of the forefoot toward the midfoot but not quite all the way to it, progresses approximately 5 cm. All of that very tender again without fluctuance or plantar findings. No subcutaneous emphysema. There is no tenderness more proximally in the ankle, lower leg, or thigh. Fullrange of motion of the ankle, knee, and hip without difficulty and no inguin al lymphadenopathy or tenderness. DP pulse 2+/4. Left lower extremity normal. Bilateral upper extremities unremarkable except for an urticarial rash and portion of the posterior aspect of the left upper arm but the entire upper arm is not affected and there are no rashes elsewhere. General Extremety ED: Yes tenderness; Negative for edema or pulses abnormal General Extremity: Negative for edema or pulses abnormal Neuro oriented x3, no focal motor deficits and no sensory deficits noted Sensorium / Orientation: alert Motor Exam: strength 5/5 throughout Psych mental status grossly normal and thought process normal Skin Skin Narrative: Skin abnormalities described in the extremity exam above, no other rashes no scleral icterus. No jaundice. MDM MDM MDM Narrative Medical decision making narrative: Labs: (Today) - WBC: Normal - ESR: Normal - CRP: Normal - Lactic acid: Normal Imaging: (Today) X-ray Right Foot (3 views): Normal, showing no signs of osteomyelitis orsubcutaneous air. Independently interpreted by me, Chris Medina. Assessment: The patient is a 69-year-old female with PMH of type 2 diabetes mellitus without complications presenting for progressive right foot pain, erythema, and swelling. Given the diabetic status and exam findings, cellulitis is the most likely diagnosis; gout is less likely based on diffuse distribution lateral foot and prior negative testing. Normal WBC, ESR, CRP, lactate, and a normal 3-view right foot x-ray showing no osteomyelitis or subcutaneous air further support uncomplicated cellulitis without deep infection. She is hemodynamically stable and non-septic, so outpatient management is appropriate. I agree with patient and family that there are 2 small papular areas that could bewounds that were superficial, from where the cellulitis started, but there isno clinical evidence of an abscess or anything drainable at this time. Plan: - IV vancomycin 15 mg/kg administered in ED - Morphine given for analgesia; patient reports marked pain relief - Erythema borders outlined with skin marker for progression monitoring - Offered hospital admission; patient declined after discussion - Discharged home with oral antibiotic plan and strict return precautions - Follow-up with podiatry in 1 week already arranged - Education provided to patient and family; all agree with plan Diagnostics: - Labs: WBC, ESR, CRP, and lactate all within normal limits - 3-view right foot x-ray: no bony changes of osteomyelitis; no subcutaneous air; soft-tissue swelling only. Independently interpreted by me, Chris Medina. Reevaluations: - Erythema stable within demarcated line; pain improved post-morphine; patient ambulates with assistance and comfortable with discharge plan Diagnoses: Cellulitis of right foot Type 2 diabetes mellitus without complications Lab Data Attestation: I reviewed the patient's lab results. Labs: Laboratory Results - last 24 hr 03/20/25 16:24 WBC 8.7 RBC 4.19 L Hgb 12.8 Hct 37.4 MCV 89.3 MCH 30.5 MCHC 34.2 RDW Std Deviation 39.8 RDW Coeff of Siri 12.3 Plt Count 234 MPV 9.8 Immature Gran % (Auto) 0.300 Neut % (Auto) 62.4 Lymph % (Auto) 28.9 [place] % (Auto) 7.6 Eos % (Auto) 0.3 Baso % (Auto) 0.5 Absolute Neuts (auto) 5.4 Absolute Lymphs (auto) 2.52 Nucleated RBC % 0 ESR 7 Sodium 139 Potassium 4.1 Chloride 102 Carbon Dioxide 25.4 Anion Gap 12 BUN 21 H Creatinine 0.92 Estim Creat Clear Calc 68.00 Est GFR (MDRD) Non-Af 67 BUN/Creatinine Ratio 23.1 H Glucose 189 H Lactic Acid 1.6 Calcium 9.3 C-React Prot Ext Range < 3.00 Radiography Diagnostic Testing: Clinical Impression(s) from Imaging Studies Foot X-Ray 03/20/25 16:40 IMPRESSION: No acute or aggressive osseous abnormality. Reading Location: [facility] Right foot 3 view x-ray series on my interpretation no evidence of subcutaneous emphysema or bony involvement in the area of clinical possible infection Discharge Plan Triage Chief Complaint: Cellulitis ED Provider: Chris Medina Dx/Rx/DC Orders Clinical Impression: Cellulitis of foot, right, Diabetes mellitus, type 2 Instructions: Cellulitis Dc Prescriptions: New cephalexin 500 mg capsule 500 mg PO Q6 Qty: 40 0RF fluconazole 150 mg tablet 150 mg PO .once Qty: 1 0RF No Action cholecalciferol (vitamin D3) 50 mcg (2,000 unit) capsule 50 mcg PO DAILY calcium carbonate [Calcium 500] 500 mg calcium (1,250 mg) tablet 500 mg PO DAILY Adult 50 Plus Probiotic 4 billion cell capsule 4,000 mmu cells PO DAILY Rx Instructions: administer with a meal ondansetron 4 mg tablet,disintegrating 4 mg PO Q8H PRN (Reason: nausea and vomiting) lisinopril 20 mg tablet 30 mg PO DAILY mecobalamin (vitamin B12) 1,000 mcg tablet,chewable 1,000 mcg PO DAILY insulin regular human 100 unit/mL solution 37 unit subcut DAILY aspirin 81 MG tablet,delayed release (DR/EC) 81 mg PO DAILY glimepiride 2 MG tablet 2 mg PO DAILY vit C,Q-Gw-lrndk-lutein-zeaxan 1 EACH capsule 1 cap PO BID atorvastatin 40 MG tablet 40 mg PO QHS Qty: 30 1RF trazodone 100 mg tablet 200 mg PO QHS omeprazole 40 mg capsule,delayed release(DR/EC) 40 mg PO BID Patient Comments: TAKE 1 CAPSULE TWICE DAILY hydrocodone-acetaminophen 5-325 mg tablet 1 tab PO Q6H PRN PRN (Reason: Pain) 3 Days Qty: 10 0RF Humulin N NPH U-100 Insulin 100 unit/mL suspension 35 unit subcut QAM Humulin N NPH U-100 Insulin 100 unit/mL suspension 45 unit subcut QPM tramadol 50 mg tablet 50 - 100 mg PO Q6H PRN PRN (Reason: pain) magnesium oxide 400 mg (241.3 mg magnesium) tablet 400 mg PO DAILY gabapentin 300 mg capsule 300 mg PO DAILY sertraline 50 mg tablet 50 mg PO DAILY gabapentin 300 mg capsule 1,200 mg PO QHS Primary Care Provider: El Driver Referrals: Meenakshi Hamm DPM [Med Staff - Active Staff, Podiatry] - Keep Francesca appointment Activity Restrictions/Additional Instructions: - You received an intravenous dose of the antibiotic vancomycin today (15 mg perkg) to treat the cellulitis in your right foot; please complete any additional antibiotic doses as directed. - Blood tests to check for infection (white blood cell count, inflammation markers, lactic acid) and a three-view x-ray of your right foot showed no signs of bone infection or sepsis. - Keep your podiatry appointment one week from today for further evaluation of your foot. - If redness spreads a significant amount outside of the lines drawn, and/or youare developing fevers, chills, or signs of sepsis, return to the ER. -To prevent antibiotic associated diarrhea and/or C. difficile, eat yogurt or take a probiotic at least once daily while you are on the antibiotics. Print Language: Gambian Disposition Disposition: Home, Self Care What to do if you have Problems For any increased pain, shortness of breath, bleeding, nausea or vomiting, chestpain, or any unexpected problems, contact your Primary Care Provider. Call [facility] ([phone]) or report tothe closest Emergency Room. Call 911 if necessary. 03/20/25 1907 Cosigner Signature (if applicable): CC: ERNESTO Hamm; Dr. El Driver, DO ~ Signed [facility]10-01-2025 Radiology Diagnostic study note [facility] Imaging Services [address], [place] [id number] Foot min 3 Views MR#: [id number] Acct: [id number] Name: CARLOS COVARRUBIAS Rep #: [id number] : [id number] F 69 From: Jeronimo Robb MD PCP: Dr. El Driver, Status: RE G ER Study:Foot min 3 Views Date of Exam: 07/14 Exam# [id number] Ordering Dr: Sylvia Medina MD PROCEDURE: RIGHT FOOT MIN 3 VIEWS 03/20/2025 REASON FOR EXAM: PAIN, FALL, POSS INFECTION FOREFOOT TECHNIQUE: Procedure Code: RADFO Modality: DX Procedure: FOOT MIN 3 VIEWS Laterality: Right COMPARISON: None. FINDINGS: No acute fracture or dislocation. Alignment is anatomic. Mild dorsal and plantar calcaneal spurring. No osseous erosion/destruction or periosteal reaction appreciated. No marked soft tissue swelling, subcutaneous emphysema or radiopaque foreign body identified. RAD/Foot min 3 Views IMPRESSION: No acute or aggressive osseous abnormality. Reading Location: [id number] CC: Dr. Chris Medina MD; Dr. El Driver DO ~ [employer]: Signed [facility]10-01-2025 NoteHNO ID: [id number] Author: LUZ ARITA APRN.[employer]TER Service: ? Author Type: Nurse Practitioner Type: Progress Notes Filed: 03/20/2025 16:05 Note Text: This is a 69 year old female who presents today with: The patient is a 69-year-old female with diabetes mellitus, presenting for evaluation of progressive right lower extremity pain with erythema and streaking concerning for infection. HISTORY OF PRESENT ILLNESS: Right Lower Extremity Pain and Discoloration: - Onset approximately 2-3 months ago. - Notable red streaking on the right foot, which appeared just recently. - Severe pain described as "numb, but yet all the pain's there." - Pain exacerbated by pressure and movement; unable to tolerate wearing shoes or walking. - Reports severe cramping in the posterior aspect of the leg. - Notable differences in toenail color between feet; right toenails appear white. - Denies known trauma. - December ultrasound to rule out DVT; x-ray of the foot also performed which showed significant arthritis - Scheduled for a nerve test on the but feels unable to tolerate it due to pain. 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 08/07/2011 Seborrheic Keratosis 10/23/2010 Skin tag 08/07/2011 Tobacco abuse 07/13/2013 Trigger finger b/l hands, has had surgeries Type II or unspecified type diabetes mellitus without mention of complication, not stated as uncontrolled Unspecified hereditary and idiopathic peripheral neuropathy PAST SURGICAL HISTORY Procedure Laterality Date CHOLECYSTECTOMY HX 1994 Cholecystectomy, laparoscopic COLONOSCOPY 02/19/2015 ESOPHAGOGASTRODUODENOSCOPY TRANSORAL DIAGNOSTIC 03/28/2013 EGD ESOPHAGOGASTRODUODENOSCOPY TRANSORAL DIAGNOSTIC 02/23/2017 EGD PAST SURGICAL HISTORY OF 1974 LEANDRO PAST SURGICAL HISTORY OF 1980 Bilateral salpingoophorectomy PAST SURGICAL HISTORY OF 1986 Lumbar laminectomy PAST SURGICAL HISTORY OF 2002- multiple right partial clavicle resection and first rib resection- septic arthritis PAST SURGICAL HISTORY OF 07/2016 back surgery Lumbar/ thoracic ALLERGIES Augmentin [Amoxicillin-Pot Clavulanate], Biaxin [Clarithromycin], Byetta [Exenatide], Glucophage [Metformin], Iodine, Latex, and Omnicef [Cefdinir] MEDICATIONS Current Outpatient Medications Medication Sig HYDROcodone-acetaminophen (NORCO) 5-325 mg per tablet Take 1 tablet by mouth every 8 hours as needed for pain for up to 7 days. gabapentin (NEURONTIN) 300 mg capsule Take 1 tablet by mouth in the morning and afternoon. Take 4 tablets at bedtime. lisinopril (ZESTRIL) 20 mg tablet Take 1.5 tablets by mouth once daily. omeprazole (PRILOSEC) 40 mg capsule Take 1 capsule by mouth two times a day. atorvastatin (LIPITOR) 40 mg tablet Take 1 tablet by mouth once daily. glimepiride (AMARYL) 2 mg tablet Take 1 tablet by mouth daily with breakfast. magnesium oxide (MAG-OX) 400 mg (241.3 mg magnesium) tablet Take 1 tablet by mouth once daily. blood sugar diagnostic (BLOOD GLUCOSE TEST) test strip Test blood sugar(s) 2 times daily. Dx: Type 2 DM - Uncontrolled E11.65 Insulin: Yes gabapentin (NEURONTIN) 300 mg capsule Take 300mg by mouth in the morning and afternoon. Take 1200mg at bedtime. traZODone (DESYREL) 100 mg tablet Take 2 tablets by mouth daily at bedtime. sertraline (ZOLOFT) 50 mg tablet Take 1 tablet by mouth once daily. fluticasone (FLONASE) 50 mcg/actuation nasal spray Use 2 Sprays in each nostril once daily. Rinse mouth after use. triamcinolone acetonide (KENALOG) 0.1 % cream Ap (more content not included)... [facility]09-22-2025 NoteHNO ID: [id number] Author: ANGELICA MALONE RT(R) Service: ? Author Type: Casino Gaming Worker Type: Progress Notes Filed: 03/11/2025 13:11 Note Text: Radiology Service Progress Note PATIENT NAME: Carlos Covarrubias DATE OF SERVICE: March 11, 2025 TIME: 1:01 PM PATIENT IDENTITY VERIFICATION COMPLETED USING TWO (2) IDENTIFIERS: Name and Date of confirmed by patient verbally. FALL SCREENING: Has the patient had 2 falls in the last year or 1 fall with injury or currently using an Ambulatory Assistive Device (Walker, Cane, Wheelchair, Crutches, etc.)? No PATIENT GENDER DATA: Assigned female at . status: : No status: NO. PATIENT RELEVANT IMPLANT DATA REVIEWED: Yes PATIENT PRESENTS WITH AN IMPLANTABLE OR ATTACHED CLOSING MACHINE OPERATOR: No RADIOLOGY DEPARTMENT: General X-ray: Exam(s) Completed: Lower Extremity X-Ray(s): Foot, Right PERIPHERAL IV DATA: Not applicable SIGNED BY: RT Dilshad(R) March 11, 2025 1:01 [facility]09-22-2025 NoteHNO ID: [id number] Author: EL DRIVER, DO Service: ? Author Type: Physician Type: Progress Notes Filed: 03/11/2025 12:40 Note Text: Patient presents with: F/U 3 Month HPI: Carlos Covarrubias is a 69 year old female who presents to the office today for review of health conditions. Concerns today: Lost her balance, felt like her leg strength gave out on her on the right side. Her daughter took her to [facility] EMERGENCY DEPARTMENT. Was told the symptoms were negative for her having a stroke, but was told her back was causing the symptoms. Diagnosed with spinal stenosis lumbar spine. She has been having right foot pain- "It feels like it is bruised so bad that I can't step on it. It feels like I am walking on hot nails." On the lateral part of her foot- has been so painful to the touch. "I can't stand anything touching my foot." Doesn't want to wear shoes. Has been taking tylenol without relief. The pain is so severe and foot feels very restless. No warmth but the foot is red. No use of any new topicals or new medications. Isn't sleeping well due to the pain. Mrs. Covarrubias has past history of diabetes. Since our last visit she denies excessive thirst or increased frequency of urination, chest pain or dyspnea , new or unusual visual symptoms, and low sugar/hypoglycemic reactions. Depression- no. Follows a diabetic diet some of the time. She is compliant with medication(s) and is tolerating med(s) without any side effects. She reports checking her glucose on a twice a day schedule with sugars in the <200 range. Patient's last HgA1C was Hemoglobin A1C (%) Date Value 10/29/2024 6.5 04/16/2024 6.6 02/09/2021 7.0 11/10/2020 7.6 ) Last Ophthalmology exam was within the past 12 months Mrs. Covarrubias reports history of hyperlipidemia. Current therapy includes atorvastatin (Lipitor) 40 mg. Denies side effects of muscle weakness or achiness. Her most recent lipid panels are reviewed. Cholesterol, Total (mg/dL) Date Value 10/29/2024 172 02/09/2021 176 HDL Cholesterol (mg/dL) Date Value 10/29/2024 40 02/09/2021 41 LDL Cholesterol, Calculated (mg/dL) Date Value 10/29/2024 99 02/09/2021 90 LDL Cholesterol Calculated, Nonfasting (mg/dL) Date Value 08/30/2022 99 Triglyceride (mg/dL) Date Value 10/29/2024 192 02/09/2021 223 Mrs. Covarrubias indicates a history of hypertension and states that she is feeling well and denies any symptoms referable to elevated blood pressure. Specifically denies headache, chest pain, palpitations, dyspnea, and peripheral edema. Patient denies any side effects of her medication(s) and is compliant with their regimen. Last 3 Encounter BP Readings: Date: BP: 03/11/2025 136/80 02/01/2025 135/72 01/24/2025 129/72 She watches her diet for sodium, low fat and low cholesterol some of the time. She does not check BP's generally. Carlos gets minimal exercise. 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 08/07/2011 Seborrheic Keratosis 10/23/2010 Skin tag 08/07/2011 Tobacco abuse 07/13/2013 Trigger finger b/l hands, has had surgeries Type II or unspecified type diabetes mellitus without mention of complication, not stated as uncontrolled Unspecified hereditary and idiopathic peripheral neuropathy PAST SURGICAL HISTORY Procedure Laterality Date CHOLECYSTECTOMY HX 1994 Cholecystectomy, laparoscopic COLONOSCOPY 02/19/2015 ESOPHAGOGASTRODUODENOSCOPY TRANSORAL DIAGNOSTIC 03/28/2013 EGD ESOPHAGOGASTRODUODENOSCOPY TRANSORAL DIAGNOSTIC 02/23/2017 EGD PAST SURGICAL HISTORY OF 1974 LEANDRO PAST SURGICAL HISTORY OF 1980 Bilateral salpingoophorectomy PAST SURGICAL HISTORY OF 1986 Lumbar lami (more content not included)...[facility]08-22-2025 Telephone encounter Note* Telephone Encounter - Britta Blandon - 02/08/2025 4:42 PM EDT Call received for Adele Hebert MD regarding Carlos Covarrubias 1955. Caller: Self Patient Identified by Name and : Yes Was permission obtained from patient ? Yes Reason for Call: Other: Question/Orders Patient would like to move forward with having the nerve test and wait on the MRI. She would need orders needed for the nerve test. She's also asking for clarification one if this will show what he'slooking for without getting the MRI? Last Office Visit: Visit date not found Last [facility] visit: Visit date not found Next scheduled appointment: 08/09/2025 Best number to reach caller: [phone] (home) Best time to reach caller: any Is it OK to leave a detailed voice message? Yes Britta Blandon [facility]08-22-2025 Miscellaneous Notes* Telephone Encounter - Britta Blandon - 02/08/2025 4:42 PM EDT Call received for Adele Hebert MD regarding Carlos Covarrubias 1955. Caller: Self Patient Identified by Name and : Yes Was permission obtained from patient ? Yes Reason for Call: Other: Question/Orders Patient would like to move forward with having the nerve test and wait on the MRI. She would need orders needed for the nerve test. She's also asking for clarification one if this will show what he'slooking for without getting the MRI? Last Office Visit: Visit date not found Last [facility] visit: Visit date not found Next scheduled appointment: 08/09/2025 Best number to reach caller: [phone] (home) Best time to reach caller: any Is it OK to leave a detailed voice message? Yes Britta Blandon [facility] Instructions* Patient Instructions* Adele Hebert MD - 02/01/2025 10:12 AM EDT 1. Lets get an MRI of the upper spine 2. Depending on that and my view of your lumbar MRI, only other relevant test would be the nerve test which could more definitively show if there is a pinched nerve in the lumbar spine. 3. Do a home memory test (BACH screening test) documented in this encounterL[facility]08-[facility]-2025 NoteHNO ID: [id number] Author: ADELE HEBERT MD Service: ? Author Type: Physician Type: Progress Notes Filed: 02/02/2025 02:47 Note Text: NEW PATIENT EVALUATION Subjective HPI Carlos Covarrubias is a 69 year old right-handed female who presents for evaluation of RLE numbness. Dr. El Driver DO is the PCP. She is here with her daughter. She explains that one day while walking her right leg just started giving out. No pain with it just felt nothing. Little bit of weird feeling in the right arm. Seemed to lean towards to the right. Daughter felt like she was a little out of it in the car ride. Was kept overnight in the hospital. Was able to walk with a walker by the time she was at the hospital. Can't put flip flops Right foot perez, can't really feel the right foot, can't feel the gas pedal, can't put flip flops on. Has dealt with pinched nerves, severe pain and difficulty moving the right leg. Spine surgery is Dr. David Covarrubias at [facility]. L4-5 surgery x 2. Has had an EMG in the past. Has DM with neuropathy, currently well controlled. Medications: Current Outpatient Medications Medication Sig Dispense Refill magnesium oxide (MAG-OX) 400 mg (241.3 mg magnesium) tablet Take 1 tablet by mouth once daily. 30 tablet 1 blood sugar diagnostic (BLOOD GLUCOSE TEST) test strip Test blood sugar(s) 2 times daily. Dx: Type 2 DM - Uncontrolled E11.65 Insulin: Yes 50 strip 11 glimepiride (AMARYL) 2 mg tablet Take 1 tablet by mouth daily with breakfast. 90 tablet 3 atorvastatin (LIPITOR) 40 mg tablet Take 1 tablet by mouth once daily. 90 tablet 3 lisinopril (ZESTRIL) 20 mg tablet Take 1.5 tablets by mouth once daily. 135 tablet 3 omeprazole (PRILOSEC) 40 mg capsule Take 1 capsule by mouth two times a day. 180 capsule 2 traZODone (DESYREL) 100 mg tablet Take 2 tablets by mouth daily at bedtime. 180 tablet 3 sertraline (ZOLOFT) 50 mg tablet Take 1 tablet by mouth once daily. 90 tablet 3 fluticasone (FLONASE) 50 mcg/actuation nasal spray Use 2 Sprays in each nostril once daily. Rinse mouth after use. 1 Each 0 triamcinolone acetonide (KENALOG) 0.1 % cream Apply 1 application to affected area three times a day. Apply sparingly to area for rash/itching. 80 g 0 gabapentin (NEURONTIN) 300 mg capsule Take 1 tablet by mouth in the morning and afternoon. Take 4 tablets at bedtime. 24 capsule 0 ondansetron orally disintegrating (ZOFRAN ODT) 4 mg disintegrating tablet Take 1 tablet by mouth every 8 hours as needed for nausea/vomiting. 20 tablet 5 Blood-Glucose Meter monitoring kit Test blood sugar(s) 2 times daily. Glucose Meter of Choice - Kit - Dx: Type 2 DM - Uncontrolled 1 Each 0 Insulin Syringe-Needle U-100 (BD INSULIN SYRINGE UF) 0.5 mL 30 gauge x 1/2" inject with insulin Four times a day with each meal and at bedtime as directed 100 Each 0 ACCU-CHEK GUIDE GLUCOSE METER USE DIRECTED 1 Each 0 Blood-Glucose Meter monitoring kit Glucose Meter of Choice - Kit - Dx: Type 2 DM - Uncontrolled 1 Each 0 insulin regular, human (NOVOLIN R REGULAR U-100 INSULN INJECTION) by INJECTION(UNSPECIFIED PARENTERAL ROUTES) route. 34 units in the Am insulin NPH injection (HumuLIN N,NovoLIN N) 35 units in the Am 45 units in the PM Lancets lancets Test blood sugar(s) BID times daily. Dx: Type 2 DM - Uncontrolled Insulin: Yes 100 Each 11 aspirin, enteric coated (ECOTRIN LOW STRENGTH) 81 mg EC tablet Take 1 tablet by mouth once daily. 0 gabapentin (NEURONTIN) 300 mg capsule Take 300mg by mouth in the morning and afternoon. Take 1200mg at bedtime. 540 capsule 3 No current facility-administered medications for this visit. ROS ROS: Her ROS was positive for that mentioned in the HPI. Otherwise a 10-point ROS was completed and was negative. ALLERGIES Allergen Reactions Augmentin [Amoxicil* GI Upset Nausea, vomiting Biaxin [Clarithromy* GI Upset Metallic taste; can tolerate Zpak Byetta [Exenatide] Intolerance GI upset Glucophage [Metform* Intolerance GI upset Iodine Swelling myleogram dye Latex Unknown Omnicef [Cefdinir] GI Upset Nausea, vomiting Past Medical History: PAST MEDICAL HISTORY Diagnosis Date ASCVD (arteriosclerotic cardiovascular disease) Atherosclerosis of left carotid artery 06/2013 Atherosclerosis of right carotid artery 06/2013 DDD (degenerative disc disease), cervical chronic neck pain Depressive disorder, not elsewhere classified Esophageal reflux 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 Nagajothi-negative stress test, EF > 70% Hypertension Intradermal Nevus: Melanocytic vs Neuroid Nevus 08/07/2011 Macular degeneration Mixed (more content not included)...[facility]08-15-2025 History of Present illness Narrative* Adele Hebert MD - 02/01/2025 9:40 AM EDT NEW PATIENT EVALUATION Subjective HPI Carlos Covarrubias is a 69 year old right-handed female who presents for evaluation of RLE numbness. Dr. El Driver DO is the PCP. She is here with her daughter. She explains that one day while walking her right leg just started giving out. No pain with it justfelt nothing. Little bit of weird feeling in the right arm. Seemed to lean towards to the right. Daughter felt like she was a little out of it in the car ride. Was kept overnight in the hospital. Was able to walk with a walker by the time she was at the hospital. Can't put flip flops Right foot perez, can't really feel the right foot, can't feel the gas pedal, can't put flip flops on. Has dealt with pinched nerves, severe pain and difficulty moving the right leg. Spine surgery is Dr. David Covarrubias at [facility]. L4-5 surgery x 2. Has had an EMG in the past. Has DM with neuropathy, currently well controlled. Medications: Current Outpatient Medications Medication Sig Dispense Refill magnesium oxide (MAG-OX) 400 mg (241.3 mg magnesium) tablet Take 1 tablet by mouth once daily. 30 tablet 1 blood sugar diagnostic (BLOOD GLUCOSE TEST) test strip Test blood sugar(s) 2 times daily. Dx: Type 2 DM - Uncontrolled E11.65 Insulin: Yes 50 strip 11 glimepiride (AMARYL) 2 mg tablet Take 1 tablet by mouth daily with breakfast. 90 tablet 3 atorvastatin (LIPITOR) 40 mg tablet Take 1 tablet by mouth once daily. 90 tablet 3 lisinopril (ZESTRIL) 20 mg tablet Take 1.5 tablets by mouth once daily. 135 tablet 3 omeprazole (PRILOSEC) 40 mg capsule Take 1 capsule by mouth two times a day. 180 capsule 2 traZODone (DESYREL) 100 mg tablet Take 2 tablets by mouth daily at bedtime. 180 tablet 3 sertraline (ZOLOFT) 50 mg tablet Take 1 tablet by mouth once daily. 90 tablet 3 fluticasone (FLONASE) 50 mcg/actuation nasal spray Use 2 Sprays in each nostril once daily. Rinse mouth after use. 1 Each 0 triamcinolone acetonide (KENALOG) 0.1 % cream Apply 1 application to affected area three times a day. Apply sparingly to area for rash/itching. 80 g 0 gabapentin (NEURONTIN) 300 mg capsule Take 1 tablet by mouth in the morning and afternoon. Take 4 tablets at bedtime. 24 capsule 0 ondansetron orally disintegrating (ZOFRAN ODT) 4 mg disintegrating tablet Take 1 tablet by mouth every 8 hours as needed for nausea/vomiting. 20 tablet 5 Blood-Glucose Meter monitoring kit Test blood sugar(s) 2 times daily. Glucose Meter of Choice - Kit- Dx: Type 2 DM - Uncontrolled E11.65 1 Each 0 Insulin Syringe-Needle U-100 (BD INSULIN SYRINGE UF) 0.5 mL 30 gauge x 1/2" inject with insulin Four times a day with each meal and at bedtime as directed 100 Each 0 ACCU-CHEK GUIDE GLUCOSE METER USE DIRECTED 1 Each 0 Blood-Glucose Meter monitoring kit Glucose Meter of Choice - Kit - Dx: Type 2 DM - Uncontrolled E11.65 1 Each 0 insulin regular, human (NOVOLIN R REGULAR U-100 INSULN INJECTION) by INJECTION(UNSPECIFIED PARENTERAL ROUTES) route. 34 units in the Am insulin NPH injection (HumuLIN N,NovoLIN N) 35 units in the Am 45 units in the PM Lancets lancets Test blood sugar(s) BID times daily. Dx: Type 2 DM - Uncontrolled E11.65 Insulin: Yes 100 Each 11 aspirin, enteric coated (ECOTRIN LOW STRENGTH) 81 mg EC tablet Take 1 tablet by mouth once daily. 0 gabapentin (NEURONTIN) 300 mg capsule Take 300mg by mouth in the morning and afternoon. Take 1200mgat bedtime. 540 capsule 3 No current facility-administered medications for this visit. ROS ROS: Her ROS was positive for that mentioned in the HPI. Otherwise a 10-point ROS was completed andwas negative. ALLERGIES Allergen Reactions Augmentin [Amoxicil* GI Upset Nausea, vomiting Biaxin [Clarithromy* GI Upset Metallic taste; can tolerate Zpak Byetta [Exenatide] Intolerance GI upset Glucophage [Metform* Intolerance GI upset Iodine Swelling myleogram dye Latex Unknown Omnicef [Cefdinir] GI Upset Nausea, vomiting Past Medical History: PAST MEDICAL HISTORY Diagnosis Date ASCVD (arteriosclerotic cardiovascular disease) Atherosclerosis of left carotid artery 06/2013 Atherosclerosis of right carotid artery 06/2013 DDD (degenerative disc disease), cervical chronic neck pain Depressive disorder, not elsewhere classified Esophageal reflux 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 08/07/2011 Seborrheic Keratosis 10/23/2010 Skin tag 08/07/2011 Tobacco abuse 07/13/2013 Trigger finger b/l hands, has had surgeries Type II or unspecified type diabetes mellitus without mention of complication, not stated as uncontrolled Unspecified hereditary and idiopathic peripheral neuropathy Family History: FAMILY HISTORY Problem Relation Age of Onset Diabetes Mother Stroke Mother Coronary Artery Disease Father ASCVD in his 80's Coronary Artery Disease Sister Early 40's with finding of ASCVD Coronary Artery Disease Sister Coronary Artery Disease Brother 2 brothers diagnosed in their 60's Lung Cancer Brother One brother with brain cancer and another one with tumors "all over his body" Coronary Artery Disease Brother Lymphoma Brother Cancer Brother Possibly lung Social History:SOCIAL HISTORY[1] Objective 02/01/25 0933 BP: 135/72 BP Site: Right Arm BP Position: Sitting BP Cuff Size: Large Adult Pulse: 62 SpO2: 97% Weight: 98.8 kg (217 lb 13 oz) Physical Examination General Appearance: Well appearing, alert, in no acute distress, well-hydrated, well nourished. Head: Normocephalic Neck: Supple Heart: RRR Peripheral Pulses: Normal Neurologic Examination Mental Status: She is alert. She is fully oriented. Attention is intact. Recent and remote memory is intact. Language shows normal comprehension and fluency. Praxis is normal. Affect is appropriate. Cranial Nerves: Pupils are equal and reactive to light. Extraocular movements show full and smooth pursuits. No nystagmus. FVisual bolaños are full to confrontation. Facial sensation is intact. Facialactivation is symmetric. Hearing is intact to conversation. There is no hypomimia. There is no hypop honia. There is no dysarthria. Tongue is midline. Palate elevates symmetrically. Shoulder shrug is normal. Motor: Muscle bulk is normal. Rapid alternating movements are normal. Muscle power is full. No weakness. Sensory: Vibration reduced absent both toes present ankles. Prop absent right toe reduced right ankle, slightly reduced left toe Reflex: REFLEXES Right Left Bicep 1/4 2/4 Tricep 1/4 2/4 BrRad 0/4 2/4 Knee 2/4 2/4 Ankle 0/4 0/4 Toes neutral to down. Coordination: Finger to nose is smooth without ataxia. Gait/station: Slower len, slightly unstable on single right leg support phase DATA REVIEWED Actual films/image/tracing reviewed and summarized as follows: MRI Brain normal, no stroke MRI Pelvis only see bottom of lumbosacral region without abnormalities, lumbar views not included in what is currently available Old records reviewed and summarized as follows: Reviewed available hospital records Assessment/Plan Assessment & Plan: Carlos Covarrubias is a 69 year old right-handed female with a history of lumbar spine surgeries and DM who presents for evaluation of right leg weakness / numbness. Her examination demonstrates numbness of right leg, decreased RUE reflexes, and gait impairment. Usually single limb symptoms in leg would be seen with lumbar spine etiology, hospital team thoughtrelated to lumbar spine, don't have lumbar images to review to be sure, asked staff to obtain. 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 MRI negative stroke could also be considered. Will discuss EMG after MRI results. At end of visit daughter mentioned some concern about memory, did not perceive a cognitive issue during visit, ordered home BACH screening test. She should return to see me in 6 months. Adele Hebert MD [facility] Neurology [1] Social History Tobacco Use Smoking status: Former Current packs/day: 0.00 Average packs/day: 0.5 packs/day for 51.4 years (25.7 ttl pk-yrs) Types: Cigarettes Start date: 03/29/1967 Quit date: 08/18/2018 Years since quittin.4 Smokeless tobacco: Never Vaping Use Vaping status: Never Used Substance Use Topics Alcohol use: No Drug use: No documented in this encounterLake[facility]08-07-[facility]25 NoteHNO ID: [id number] Author: CARSON MURRAY APRN.CLOTH STOCK SORTER Service: ? Author Type: Nurse Practitioner Type: Progress Notes Filed: 01/24/2025 14:24 Note Text: . LUNG SCREENING VISIT PRIMARY CARE PHYSICIAN: El Driver DO PULMONARY PROVIDER: none Results will be communicated via letter or electronic record if applicable. Visit Delivery: In Person Patient Visit Type: New to Screening Current or Ex-smoker? Ex Exam Type: baseline LDCT Number of Pack Years: 104 Current smoker (=0) or Number of Years since Quit: 6 REQUESTER: The referring provider advised the patient to have screening. HISTORY OF PRESENT ILLNESS: Carlos Covarrubias is a 69 year old Former smoker who presents for lung screening. Has pain in Left side. Has had heart checked. Saw Cardiology in the past. Respiratory symptoms include: SOB: Yes Chest tightness: No Coughing: No Hemoptysis: No Wheezing: No Fever/Chills: No Recent Respiratory Infection: No Unintentional weight loss: No Last 6 Encounter Wt Readings: Date: Wt: 01/24/2025 98.9 kg (218 lb) 12/31/2024 98.9 kg (218 lb) 11/05/2024 99.8 kg (220 lb) 08/06/2024 101 kg (222 lb 10.6 oz) 07/31/2024 100.5 kg (221 lb 9 oz) 06/04/2024 100.4 kg (221 lb 5.5 oz) ECOG PERFORMANCE STATUS: 0- Fully active, able to carry on all pre-disease performance w/o restriction. 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 08/07/2011 Seborrheic Keratosis 10/23/2010 Skin tag 08/07/2011 Tobacco abuse 07/13/2013 Trigger finger b/l hands, has had surgeries Type II or unspecified type diabetes mellitus without mention of complication, not stated as uncontrolled Unspecified hereditary and idiopathic peripheral neuropathy PAST SURGICAL HISTORY Procedure Laterality Date CHOLECYSTECTOMY HX 1995 Cholecystectomy, laparoscopic COLONOSCOPY 02/19/2015 ESOPHAGOGASTRODUODENOSCOPY TRANSORAL DIAGNOSTIC 03/28/2013 EGD ESOPHAGOGASTRODUODENOSCOPY TRANSORAL DIAGNOSTIC 02/23/2017 EGD PAST SURGICAL HISTORY OF 1974 LEANDRO PAST SURGICAL HISTORY OF 1980 Bilateral salpingoophorectomy PAST SURGICAL HISTORY OF 1986 Lumbar laminectomy PAST SURGICAL HISTORY OF 2002- multiple right partial clavicle resection and first rib resection- septic arthritis PAST SURGICAL HISTORY OF 07/2016 back surgery Lumbar/ thoracic FAMILY HISTORY Problem Relation Age of Onset Diabetes Mother Stroke Mother Coronary Artery Disease Father ASCVD in his 80's Coronary Artery Disease Sister Early 40's with finding of ASCVD Coronary Artery Disease Sister Coronary Artery Disease Brother 2 brothers diagnosed in their 60's Lung Cancer Brother One brother with brain cancer and another one with tumors "all over his body" Coronary Artery Disease Brother Lymphoma Brother Cancer Brother Possibly lung magnesium oxide (MAG-OX) 400 mg (241.3 mg magnesium) tablet Take 1 tablet by mouth once daily. blood sugar diagnostic (BLOOD GLUCOSE TEST) test strip Test blood sugar(s) 2 times daily. Dx: Type 2 DM - Uncontrolled E11.65 Insulin: Yes gabapentin (NEURONTIN) 300 mg capsule Take 300mg by mouth in the morning and afternoon. Take 1200mg at bedtime. glimepiride (AMARYL) 2 mg tablet Take 1 tablet by mouth daily with breakfast. atorvastatin (LIPITOR) 40 mg tablet Take 1 tablet by mouth once daily. lisinopril (ZESTRIL) 20 mg tablet Take 1.5 tablets by mouth once daily. omeprazole (PRILOSEC) 40 mg capsule Take 1 capsule by mouth two times a day. traZODone (DESYREL) 100 mg tablet Take 2 tablets by mouth daily at bedtime. sertraline (ZOLOFT) 50 mg tablet Take 1 tablet b (more content not included)... [facility]07-23-2025 Telephone encounter Note* Telephone Encounter - Katty Duran MA - 01/09/2025 12:33 PM EDT Letter mailed to pt notifying her we've been unable to reach her by phone after several call attempts and [employer] message sent. Notified pt of results in letter and if questions to contact office andspeak with Triage Nurse. Katty Duran MA [facility]07-23-2025 Miscellaneous Notes* Telephone Encounter - Katty Duran MA - 01/09/2025 12:33 PM EDT Letter mailed to pt notifying her we've been unable to reach her by phone after several call attempts and [employer] message sent. Notified pt of results in letter and if questions to contact office andspeak with Triage Nurse. Katty Durna MA * Telephone Encounter - Negin Gonzalez MA - 01/04/2025 3:46 PM EDT Notified via [employer]. Will leave open till pt has read message. Negin Gonzalez MA * Telephone Encounter - PAM FAITH - 01/03/2025 9:34 AM EDT Attempted to contact patient again at this time with no answer. Pam Faith LPN * Telephone Encounter - Lia Butler MA - 01/01/2025 2:56 PM EDT Called both numbers on file for patient. No answer. Unable to leave message. Try again later. Lia Butler MA * Telephone Encounter - Lia Butler MA - 01/01/2025 2:54 PM EDT ----- Message from Radha Tony APRN.CLOTH STOCK SORTER sent at 01/01/2025 8:46 AM EDT ----- US negative for blood clot. Radha Tony APRN.CLOTH STOCK SORTER documented in this encounterLake[facility]07-18-2025 Telephone encounter Note * Telephone Encounter - Negin Gonzalez MA - 01/04/2025 3:46 PM EDT Notified via [employer]. Will leave open till pt has read message. Negin Gonzalez MA [facility]07-17-2025 Telephone encounter Note* Telephone Encounter - Eve Covarrubias MA - 01/03/2025 11:20 AM EDT Received medical records and scanning them into chart. Look in scanned documents for report, [place] [facility]07-17-2025 Miscellaneous Notes* Telephone Encounter - Eve Covarrubias MA - 01/03/2025 11:20 AM EDT Received medical records and scanning them into chart. Look in scanned documents for report, patient [place] an apt [place] 02/01/[place]. * Telephone Encounter - Eve Covarrubias MA - 01/03/2025 10:27 AM EDT Sent request for recent MRI from [facility] medical records departmant at [phone], waiting for response documented in this encounterLakehealth [facility]07-17-2025 Telephone encounter Note * Telephone Encounter - Eve Covarrubias MA - 01/03/2025 10:27 AM EDT Sent request for recent MRI from [facility] medical records departmant at [phone], waiting for response [facility]07-17-2025 Telephone encounter Note* Telephone Encounter - PAM FAITH - 01/03/2025 9:34 AM EDT Attempted to contact patient again at this time with no answer. Pam Faith LPN [facility]07-16-2025 Telephone encounter Note* Telephone Encounter - Eve Covarrubias MA - 01/02/2025 8:05 AM EDT Check lobby no patient. Check in [facility]07-16-2025 Miscellaneous Notes* Telephone Encounter - Eve Covarrubias MA - 01/02/2025 8:05 AM EDT Check lobby no patient. Check in documented in this encounterLakehealth [facility]07-15-2025 Telephone encounter Note * Telephone Encounter - Lia Butler MA - 01/01/2025 2:56 PM EDT Called both numbers on file for patient. No answer. Unable to leave message. Try again later. Lia Butler MA [facility]07-15-2025 Telephone encounter Note* Telephone Encounter - Lia Butler MA - 01/01/2025 2:54 PM EDT ----- Message from Radha Tony APRN.CLOTH STOCK SORTER sent at 01/01/2025 8:46 AM EDT ----- US negative for blood clot. Radha Tony APRN.CLOTH STOCK SORTER [place] [id number] History of Present illness Narrative* Daniela Covarrubias Tech - 12/31/2024 5:00 PM EDT Radiology Service Progress Note PATIENT NAME: Carlos Covarrubias DATE OF SERVICE: December 31, 2024 TIME: 5:32 PM PATIENT IDENTITY VERIFICATION COMPLETED USING TWO (2) IDENTIFIERS: Name and Date of confirmedby patient verbally. FALL SCREENING: Has the patient had 2 falls in the last year or 1 fall with injury or currently using an Ambulatory Assistive Device (Walker, Cane, Wheelchair, Crutches, etc.)? Yes, Patient High Riskfor Falls What interventions were put in place to prevent falls during this visit? Offered Assistance with Transfers/Clothing and Increased Observations by Caregivers PATIENT GENDER DATA: Assigned female at . status: : No status:NO. PATIENT RELEVANT IMPLANT DATA REVIEWED: Not Applicable PATIENT PRESENTS WITH AN IMPLANTABLE OR ATTACHED CLOSING MACHINE OPERATOR: No RADIOLOGY DEPARTMENT: Ultrasound PERIPHERAL IV DATA: Not applicable SIGNED BY: Meredith Barajas December 31, 2024 5:32 PM documented in this encounterLakehealth [facility]07-14-2025 NoteHNO ID: [id number] Author: DANIELA COVARRUBIAS Tech Service: Radiology Author Type: [employer] Worker Type: Progress Notes Filed: 12/31/2024 17:32 Note Text: Radiology Service Progress Note PATIENT NAME: Carlos Covarrubias DATE OF SERVICE: December 31, 2024 TIME: 5:32 PM PATIENT IDENTITY VERIFICATION COMPLETED USING TWO (2) IDENTIFIERS: Name and Date of confirmed by patient verbally. FALL SCREENING: Has the patient had 2 falls in the last year or 1 fall with injury or currently using an Ambulatory Assistive Device (Walker, Cane, Wheelchair, Crutches, etc.)? Yes, Patient High Risk for Falls What interventions were put in place to prevent falls during this visit? Offered Assistance with Transfers/Clothing and Increased Observations by Caregivers PATIENT GENDER DATA: Assigned female at . status: : No status: NO. PATIENT RELEVANT IMPLANT DATA REVIEWED: Not Applicable PATIENT PRESENTS WITH AN IMPLANTABLE OR ATTACHED CLOSING MACHINE OPERATOR: No RADIOLOGY DEPARTMENT: Ultrasound PERIPHERAL IV DATA: Not applicable SIGNED BY: Meredith Barajas December 31, 2024 5:32 PMHocking Valley Community [id number] Instructions* Patient Instructions* Radha Tony APRN.ROYA - 12/31/2024 10:50 AM EDT - You may use Tylenol or ibuprofen for pain relief as noted in your discharge instructions. - An ultrasound of your right leg has been ordered to check for a possible blood clot--please go tothe front desk coordinator to schedule it today if possible. - A consultation with an orthospine (spine) surgeon has been requested--please schedule that appointment at the front desk coordinator. Consider requesting and bringing the MRI imaging discs from your hospital stay to your spine consultation. - To reduce the rattling noise from your walker, try placing tennis balls on the bottom of its legsor have it checked for any loose parts. - Return to the emergency department right away if you experience any of the following: - Increasing weakness in your leg - New or worsening fever or chills - New urinary or bowel incontinence - Numbness or tingling in the groin area - You have a follow-up appointment with Dr. Driver in February. documented in this encounterLakehealth [facility] Center07-14-2025 NoteHNO ID: [id number] Author: RADHA TONY APRN.CNP Service: ? Author Type: Nurse Practitioner Type: Progress Notes Filed: 12/31/2024 11:07 Note Text: 12/31/2024 Patient presents with: Hospital F/U: [facility] 12/24/24-12/25/24 Recording using [employer] software for draft documentation of the visit was discussed with the patient/authorized construction sales representative; all questions welcomed and answered. Patient/authorized construction sales representative agreed to proceed SUBJECTIVE: This is a 69 year old that is here today for Above Complaints. Right Leg Weakness and Numbness: - Onset while walking at home; leg "gave out" twice, followed by complete loss of function. - Associated with leaning to the right and emotional lability. - Initially improved, allowing ambulation with a walker, but worsened upon hospital admission. - Currently using a walker, previously belonged to her . - Denies known trauma. - Reports heaviness in the leg, limiting ambulation; requires a scooter for mobility in stores. - Unable to drive due to decreased sensation in the right foot. - Recent hospital stay at [facility] included three MRIs (brain and spine) and a CT angiography. - MRI of the brain was negative for CVA. - MRI of the lumbar spine revealed spinal stenosis and inflammation in the paraspinal muscles. - Partial tear of the right hamstring muscle noted. - No physical therapy recommended at this time. - Denies history of DVT or recent cancer treatment. - Reports new onset of calf pain and redness, with episodes of the calf feeling hard as a brick. - Denies prolonged bed rest outside of hospital stay. - History of neuropathy, with new onset of decreased sensation in the right foot since hospital admission. - Two previous back surgeries; reports chronic back pain, but recent pain is different in location and character. - History of cervical spine issues, previously recommended for surgery but declined; reports severe neck pain with movement. - Denies current back pain. Reports right calf has been hurting since discharge - Reports chronic urinary incontinence. 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 08/07/2011 Seborrheic Keratosis 10/23/2010 Skin tag 08/07/2011 Tobacco abuse 07/13/2013 Trigger finger b/l hands, has had surgeries Type II or unspecified type diabetes mellitus without mention of complication, not stated as uncontrolled Unspecified hereditary and idiopathic peripheral neuropathy ALLERGIES Augmentin [Amoxicillin-Pot Clavulanate], Biaxin [Clarithromycin], Byetta [Exenatide], Glucophage [Metformin], Iodine, Latex, and Omnicef [Cefdinir] MEDICATIONS Current Outpatient Medications Medication Sig blood sugar diagnostic (BLOOD GLUCOSE TEST) test strip Test blood sugar(s) 2 times daily. Dx: Type 2 DM - Uncontrolled E11.65 Insulin: Yes gabapentin (NEURONTIN) 300 mg capsule Take 300mg by mouth in the morning and afternoon. Take 1200mg at bedtime. glimepiride (AMARYL) 2 mg tablet Take 1 tablet by mouth daily with breakfast. atorvastatin (LIPITOR) 40 mg tablet Take 1 tablet by mouth once daily. lisinopril (ZESTRIL) 20 mg tablet Take 1.5 tablets by mouth once daily. omeprazole (PRILOSEC) 40 mg capsule Take 1 capsule by mouth two times a day. traZODone (DESYREL) 100 mg tablet Take 2 tablets by mouth daily at bedtime. sertraline (ZOLOFT) 50 mg tablet Take 1 tablet by mouth once daily. fluticasone (FLONASE) 50 mcg/actuation nasal spray Use 2 Sprays in each nostril once daily. Rinse mouth after use. triamcinolone acetonide (KENALOG) 0.1 % cream Apply 1 application to affected area three times a day. Apply sparingly to area f (more content not included)... [facility]07-14-2025 History of Present illness Narrative* Radha Tony APRN.CLOTH STOCK SORTER - 12/31/2024 10:33 AM EDT 12/31/2024 Patient presents with: Hospital F/U: [facility] 12/24/24-12/25/24 Recording using [employer]Suite software for draft documentation of the visit was discussed with the patient/authorized construction sales representative; all questions welcomed and answered. Patient/authorized construction sales representative agreed to proceed SUBJECTIVE: This is a 69 year old that is here today for Above Complaints. Right Leg Weakness and Numbness: - Onset while walking at home; leg "gave out" twice, followed by complete loss of function. - Associated with leaning to the right and emotional lability. - Initially improved, allowing ambulation with a walker, but worsened upon hospital admission. - Currently using a walker, previously belonged to her . - Denies known trauma. - Reports heaviness in the leg, limiting ambulation; requires a scooter for mobility in stores. - Unable to drive due to decreased sensation in the right foot. - Recent hospital stay at [facility] included three MRIs (brain and spine) and a CT angiography. - MRI of the brain was negative for CVA. - MRI of the lumbar spine revealed spinal stenosis and inflammation in the paraspinal muscles. - Partial tear of the right hamstring muscle noted. - No physical therapy recommended at this time. - Denies history of DVT or recent cancer treatment. - Reports new onset of calf pain and redness, with episodes of the calf feeling hard as a brick. - Denies prolonged bed rest outside of hospital stay. - History of neuropathy, with new onset of decreased sensation in the right foot since hospital admission. - Two previous back surgeries; reports chronic back pain, but recent pain is different in location and character. - History of cervical spine issues, previously recommended for surgery but declined; reports severeneck pain with movement. - Denies current back pain. Reports right calf has been hurting since discharge - Reports chronic urinary incontinence. 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 08/07/2011 Seborrheic Keratosis 10/23/2010 Skin tag 08/07/2011 Tobacco abuse 07/13/2013 Trigger finger b/l hands, has had surgeries Type II or unspecified type diabetes mellitus without mention of complication, not stated as uncontrolled Unspecified hereditary and idiopathic peripheral neuropathy ALLERGIES Augmentin [Amoxicillin-Pot Clavulanate], Biaxin [Clarithromycin], Byetta [Exenatide], Glucophage [Metformin], Iodine, Latex, and Omnicef [Cefdinir] MEDICATIONS Current Outpatient Medications Medication Sig blood sugar diagnostic (BLOOD GLUCOSE TEST) test strip Test blood sugar(s) 2 times daily. Dx: Type 2 DM - Uncontrolled E11.65 Insulin: Yes gabapentin (NEURONTIN) 300 mg capsule Take 300mg by mouth in the morning and afternoon. Take 1200mgat bedtime. glimepiride (AMARYL) 2 mg tablet Take 1 tablet by mouth daily with breakfast. atorvastatin (LIPITOR) 40 mg tablet Take 1 tablet by mouth once daily. lisinopril (ZESTRIL) 20 mg tablet Take 1.5 tablets by mouth once daily. omeprazole (PRILOSEC) 40 mg capsule Take 1 capsule by mouth two times a day. traZODone (DESYREL) 100 mg tablet Take 2 tablets by mouth daily at bedtime. sertraline (ZOLOFT) 50 mg tablet Take 1 tablet by mouth once daily. fluticasone (FLONASE) 50 mcg/actuation nasal spray Use 2 Sprays in each nostril once daily. Rinse mouth after use. triamcinolone acetonide (KENALOG) 0.1 % cream Apply 1 application to affected area three times a day. Apply sparingly to area for rash/itching. gabapentin (NEURONTIN) 300 mg capsule Take 1 tablet by mouth in the morning and afternoon. Take 4 tablets at bedtime. ondansetron orally disintegrating (ZOFRAN ODT) 4 mg disintegrating tablet Take 1 tablet by mouth every 8 hours as needed for nausea/vomiting. Blood-Glucose Meter monitoring kit Test blood sugar(s) 2 times daily. Glucose Meter of Choice - Kit- Dx: Type 2 DM - Uncontrolled E11.65 Insulin Syringe-Needle U-100 (BD INSULIN SYRINGE UF) 0.5 mL 30 gauge x 1/2" inject with insulin Four times a day with each meal and at bedtime as directed ACCU-CHEK GUIDE GLUCOSE METER USE DIRECTED Blood-Glucose Meter monitoring kit Glucose Meter of Choice - Kit - Dx: Type 2 DM - Uncontrolled E11.65 insulin regular, human (NOVOLIN R REGULAR U-100 INSULN INJECTION) by INJECTION(UNSPECIFIED PARENTERAL ROUTES) route. 34 units in the Am insulin NPH injection (HumuLIN N,NovoLIN N) 35 units in the Am 45 units in the PM Lancets lancets Test blood sugar(s) BID times daily. Dx: Type 2 DM - Uncontrolled E11.65 Insulin: Yes aspirin, enteric coated (ECOTRIN LOW STRENGTH) 81 mg EC tablet Take 1 tablet by mouth once daily. magnesium oxide (MAG-OX) 400 mg (241.3 mg magnesium) tablet Take 1 tablet by mouth once daily. No current facility-administered medications for this visit. Medications and allergies reviewed by this provider. SOCIAL HISTORY Social History Tobacco Use Smoking status: Former Current packs/day: 0.00 Average packs/day: 0.5 packs/day for 51.4 years (25.7 ttl pk-yrs) Types: Cigarettes Start date: 03/29/1967 Quit date: 08/18/2018 Years since quittin.3 Smokeless tobacco: Never Vaping Use Vaping status: Never Used Substance Use Topics Alcohol use: No Drug use: No REVIEW OF SYSTEMS All other reviewed and negative other than HPI. OBJECTIVE: BP 130/62 Pulse 62 Resp 12 Wt 98.9 kg (218 lb) BMI 33.82 kg/m . Vital signs reviewed by this provider. APPEARANCE Well appearing, alert, in no acute distress, well-hydrated, well nourished. EYES PERRLA, conjunctiva and sclera normal. HEART RRR with normal S1 and S2, no murmurs, no gallops, no JVD appreciated LUNG clear to auscultation EXTREMITIES Mild erythema to RLE with calf tenderness. No excessive warmth. No palpable cord. Negative Webb NEURO Awake, alert and oriented x 3, Normal gait, No involuntary motions., negative findings: mental status intact, muscle tone normal, muscle strength normal, and positive findings: KJ: 0/2+.Normal sensation to sharp/dull SKIN Skin color, texture, turgor normal, no suspicious rashes or lesions to exposed skin Lung Cancer Screening Never done Diabetic Foot Exam due on 08/31/2023 Medicare Advantage Annual Wellness Visit due on 06/20/2024 Mammogram Screening due on 10/03/2024 Colorectal Cancer Screening due on 02/19/2025 Covid-19 Vaccine( season) due on 11/05/2025 Influenza Vaccine(1) due on 02/18/2025 Pneumococcal Vaccine: 50+(3 of 3 - PCV20 or PCV21) due on 03/01/2025 HbA1C due on 05/01/2025 Urine Albumin:Creatinine Ratio due on 10/29/2025 LDL Cholesterol due on 10/29/2025 Annual PCP Team Chronic Disease Visit due on 11/05/2025 Dilated Retinal Exam due on 12/14/2025 DTaP,Tdap,Td Vaccine(2 - Td or Tdap) due on 05/19/2028 Bone Density Screening Completed RSV Vaccine Completed Hepatitis C Screening Completed Shingrix Vaccine Completed Advance Directive Discussion Discontinued 1. Hospital discharge follow-up (Z09) - Reviewed hospital discharge summary. - MRI of the brain was negative for acute pathology. - MRI of the lumbar sacral spine revealed spinal stenosis and inflammation within the paraspinal muscles. - Partial tearing of the right hamstring muscle noted. - No therapies recommended at this time; defer to orthospine surgeon. - Advised use of Tylenol or ibuprofen for pain management. 2. Right leg weakness (R29.898) 3. Difficulty in walking, not elsewhere classified (R26.2) - Right leg weakness persists, though improved since hospital admission. - Utilizing a walker for ambulation; not previously required before hospital visit. - Consulted orthospine for further evaluation and management. - Advised patient to obtain MRI discs from the hospital to bring to the orthospine appointment. - Educated on red flag symptoms: increasing weakness, fevers, chills, complete loss of leg function, urinary or bowel incontinence, and groin numbness or tingling; instructed to seek immediate medical attention if these occur. 4. Right calf pain (M79.661) - New onset of right calf pain with reported hardness and redness. - Ordered ultrasound to rule out deep vein thrombosis (DVT). - Scheduled ultrasound to be performed today. 5. Spinal stenosis of lumbar region, unspecified whether neurogenic claudication present (M48.061) - Confirmed by MRI findings. - Referral to orthospine for further evaluation and management. 6. History of back surgery (Z98.890) - Two previous back surgeries reported. - No current back pain reported, but history of chronic back issues. 7. Neuropathy (G62.9) - Chronic condition; new symptom of decreased sensation in the foot affecting ability to drive. - recommend she not drive at this time - Sensation intact on examination. - Discussed potential contribution of neuropathy to current symptoms. Radha Tony APRN.[employer] Prescription instructions reviewed with patient as applicable. Patient advised if symptoms do not improve or if symptoms worsen sooner, to contact their primary care physician. Potential red flag symptoms discussed with the patient. Reviewed appropriate action plan to take if red flag symptoms occur. Patient agreeable to treatment plan. I spent a total of 30 minutes on the date of the service which included preparing to see the patient, zkah-qt-[id number] patient care, completing clinical documentation, obtaining and/or reviewing separately obtained history, performing a medically appropriate examination, counseling and educating the pat ient/family/caregiver, and ordering medications, tests, or procedures. [facility] Discharge instructions Patient Education 12/25/2024 14:12:19 Peripheral Neuropathy Peripheral Neuropathy Peripheral neuropathy is a type of nerve damage. It affects nerves that carry signals between the spinal cord and the arms, legs, and the rest of the body (peripheral nerves). It does not affect nerves in the spinal cord or brain. In peripheral neuropathy, one nerve or a group of nerves may be damaged. Peripheral neuropathy is a broad category that includes many specific nerve disorders, like diabetic neuropathy, hereditary neuropathy, and carpal tunnel syndrome. What are the causes? This condition may be caused by: Diabetes. This is the most common cause of peripheral neuropathy. Nerve injury. Pressure or stress on a nerve that lasts a long time. Lack (deficiency) of B vitamins. This can result from alcoholism, poor diet, or a restricted diet. Infections. Autoimmune diseases, such as rheumatoid arthritis and systemic lupus erythematosus. Nerve diseases that are passed from parent to child (inherited). Some medicines, such as cancer medicines (chemotherapy). Poisonous (toxic) substances, such as lead and mercury. Too little blood flowing to the legs. Kidney disease. Thyroid disease. In some cases, the cause of this condition is not known. What are the signs or symptoms? Symptoms of this condition depend on which of your nerves is damaged. Common symptoms include: Loss of feeling (numbness) in the feet, hands, or both. Tingling in the feet, hands, or both. Burning pain. Very sensitive skin. Weakness. Not being able to move a part of the body (paralysis). Muscle twitching. Clumsiness or poor coordination. Loss of balance. Not being able to control your bladder. Feeling dizzy. Sexual problems. How is this diagnosed? Diagnosing and finding the cause of peripheral neuropathy can be difficult. Your health care provider will take your medical history and do a physical exam. A neurological exam will also be done. This involves checking things that are affected by your brain, spinal cord, and nerves (nervous system). For example, your health care provider will check your reflexes, how you move, and what you can feel. You may have other tests, such as: Blood tests. Electromyogram (EMG) and nerve conduction tests. These tests check nerve function and how well the nerves are controlling the muscles. Imaging tests, such as CT scans or MRI to rule out other causes of your symptoms. Removing a small piece of nerve to be examined in a lab (nerve biopsy). This is rare. Removing and examining a small amount of the fluid that surrounds the brain and spinal cord (lumbarpuncture). This is rare. How is this treated? Treatment for this condition may involve: Treating the underlying cause of the neuropathy, such as diabetes, kidney disease, or vitamin deficiencies. Stopping medicines that can cause neuropathy, such as chemotherapy. Medicine to relieve pain. Medicines may include: ?Prescription or apbq-dvw-ldmjpgo pain medicine. ?Antiseizure medicine. ?Antidepressants. ?Pain-relieving patches that are applied to painful areas of skin. Surgery to relieve pressure on a nerve or to destroy a nerve that is causing pain. Physical therapy to help improve movement and balance. Devices to help you move around (assistive devices). Follow these instructions at home: Medicines Take iuui-rvn-lsfwrqb and prescription medicines only as told by your health care provider. Do not take any other medicines without first asking your health care provider. Do not drive or use heavy machinery while taking prescription pain medicine. Lifestyle Do not use any products that contain nicotine or tobacco, such as cigarettes and e-cigarettes. Smoking keeps blood from reaching damaged nerves. If you need help quitting, ask your health care provider. Avoid or limit alcohol. Too much alcohol can cause a vitamin B deficiency, and vitamin B is needed for healthy nerves. Eat a healthy diet. This includes: ?Eating foods that are high in fiber, such as fresh fruits and vegetables, whole grains, and beans. ?Limiting foods that are high in fat and processed sugars, such as fried or sweet foods. General instructions If you have diabetes, work closely with your health care provider to keep your blood sugar under control. If you have numbness in your feet: ?Check every day for signs of injury or infection. Watch for redness, warmth, and swelling. ?Wear padded socks and comfortable shoes. These help protect your feet. Develop a good support system. Living with peripheral neuropathy can be stressful. Consider talkingwith a mental health specialist or joining a support group. Use assistive devices and attend physical therapy as told by your health care provider. This may include using a walker or a cane. Keep all follow-up visits as told by your health care provider. This is important. Contact a health care provider if: You have new signs or symptoms of peripheral neuropathy. You are struggling emotionally from dealing with peripheral neuropathy. Your pain is not well-controlled. Get help right away if: You have an injury or infection that is not healing normally. You develop new weakness in an arm or leg. You fall frequently. Summary Peripheral neuropathy is when the nerves in the arms, or legs are damaged, resulting in numbness, weakness, or pain. There are many causes of peripheral neuropathy, including diabetes, pinched nerves, vitamin deficiencies, autoimmune disease, and hereditary conditions. Diagnosing and finding the cause of peripheral neuropathy can be difficult. Your health care provider will take your medical history, do a physical exam, and do tests, including blood tests and nervefunction tests. Treatment involves treating the underlying cause of the neuropathy and taking medicines to help control pain. Physical therapy and assistive devices may also help. This information is not intended to replace advice given to you by your health care provider. Make sure you discuss any questions you have with your health care provider. Document Released: 05/27/2003 Document Revised: 05/19/2018 Document Reviewed: 08/15/2017 [employer] Patient Education 2020 [employer]. Follow Up Care 12/24/2024 13:01:32 With:RADHA TONY APRN.[facility] Address: [address] [place] [phone] When:12/31/2024 10:30:00 Comments:This is your post-hospital follow-up appointment. [facility] 07-08-2025 Note Date of Service 12/25/24 Chief Complaint Presents with right leg weakness. History of Present Illness 69-year-old female with past medical history significant for type 2 diabetes mellitus with neuropathy, CAD, cervical degenerative disc disease, depression, hypertension, macular degeneration. Patient presented to [facility] emergency department 12/24/2024 with sudden onset of right lower extremity weakness. She felt like her leg gave out and she had to lower herself to the ground. Since then she has had difficulty moving this extremity. In the emergency department she then began having right upper extremity weakness. Vital signs were stable upon arrival. CBC unremarkable. BMP unremarkable. Lactic acid 1.6, troponin 8. CT of the head negative. CTA head and neck shows no LVO. Atherosclerotic changes to the anterior and posterior circulation. Questionable small A comm aneurysm, no more than a millimeter or 2 mm in diameter. Telehealth neurology was consulted with recommendations for MRI brain, MRI lumbar and sacrum without contrast. She was given aspirin 325 mg as well as a 500 mL liter bolus in the ER. She was subsequently admitted. On exam today, pt denies any fever or chills. No headache or dizziness. Denies chest pain, palpitations. No cough, dyspnea, sputum production. Denies N/V/D/C. No melena/hematochezia. No dysuria or hematuria. Weakness of RLE improved today. Review of Systems See HPI for specific ROS. All other systems reviewed and negative. Physical Exam Vitals and Measurements T: 36.7 C (Oral) TMIN: 36.5 C (Oral) TMAX: 36.7 C (Oral) HR: 62 (Monitored) RR: 16 BP: 160/76 SpO2:98% HT: 170.2 cm WT: 101.7 kg BMI: 35.11 Weight Dosing Weight: 101.7 kg (12/24/24) Dosing Weight: 101.7 kg (12/24/24) GEN: Appears chronically ill EYES: No conjunctival erythema, drainage. EOMI EARS: Hearing grossly intact. NOSE: No nasal discharge. THROAT: Oral cavity and pharynx pink and moist. CHEST: Normal S1 and S2. Rhythm is regular. Clear to auscultation, without rales, rhonchi, wheezing. ABD: Positive bowel sounds x 4 quads. Soft, nondistended, nontender. EXT: No significant deformity or joint abnormality. No edema. Peripheral pulses intact. NEURO: Sensation grossly intact SKIN: Skin color normal PSYCH: The mental examination revealed the patient was alert and oriented x 4 Lab Results 12/25 05:36 WBC: 5.7 Hgb: 12.1 Hct: 34.6 Platelet: 183 Neutrophil %: 45.6 L Glucose Level: 201 H Sodium Level: 145 Potassium Level: 4.5 BUN: 14 Creatinine Lvl (s): 0.80 12/24 13:43 WBC: 6.5 Hgb: 12.0 Hct: 33.7 L Platelet: 197 Neutrophil %: 56.5 Protime: 11.3 PT International Ratio: 1.0 Glucose Level: 124 H Sodium Level: 142 Potassium Level: 4.1 BUN: 19 H Creatinine Lvl (s): 0.94 Assessment/Plan 1. Right leg weakness 2. Type 2 diabetes mellitus with diabetic neuropathy 3. HTN (hypertension) Right leg weakness patient also had right upper extremity drift on exam. ABCD 2 score of 5. Concernfor TIA versus stroke. MRI brain negative. Patient also has prior history of lumbar laminectomy. Telehealth neurologist recommends MRI lumbar spine and sacrum. Type 2 diabetes mellitus- Glucose goal 180 or less and avoid hypoglycemia. Corrective sliding scaleinsulin. ADA diet. HTN- Continue home antihypertensives. Hypomagnesemia- Mg Sulfate 4g IV. DVT prophylaxis:SCD's Code Status:Full Code Plan of care discussed with patient. All questions answered. Patient verbalizes understanding is agreeable to plan of care. This dictation was performed using voice recognition software and may include grammatical and/or spelling errors. Procedure/Surgical History Clavicle: 06/20/02 Hysterectomy Lumbar spine Cholecystectomy Medications Home Medications (13) Active aspirin 81 mg oral delayed release tablet 81 mg = 1 tab(s), Oral, qDay ATORVASTATIN CALCIUM 40 MG TABS 1 tab, Oral, qHS gabapentin 300 mg oral capsule 900 mg = 3 cap(s), Oral, qHS glimepiride 2 mg oral tablet 2 mg = 1 tab(s), Oral, Daily ICaps AREDS 2 oral capsule 1 cap(s), Oral, BID lisinopril 20 mg oral tablet 30 mg = 1.5 tab(s), Oral, Daily NovoLIN N 40 unit(s), Subcutaneous, BID NovoLIN R 35 unit(s), Subcutaneous, Daily omeprazole 40 mg oral delayed release capsule 40 mg = 1 cap(s), Oral, BID traZODone 100 mg oral tablet 200 mg = 2 tab(s), Oral, qHS Vitamin B12 1,000 mcg, Oral, BID Vitamin D3 5000 IU, Oral, BID Zoloft 50 mg, Oral, qDay Allergies Bactrim vomiting, "deathly sick" amoxicillin vomiting, "deathly sick" misc antibiotic (non-codified) Social History Alcohol Use: Never., 12/24/2024 Home/Environment Living situation: Home/Independent. Safe place to go: Yes. Domestic Concerns: None. Lives In: Single level home, basement laundry. Current Home Treatments Blood Glucose monitoring., 12/25/2024 Nutrition/Health Appetite Excellent. Eating Difficulties None., 12/24/2024 Substance Abuse Use: Never., 12/24/2024 Tobacco Nicotine Use: Former smoker, quit more than 30 days ago. Smokeless Tobacco Use: Former smokeless tobacco user, quit more than 30 days ago., 12/24/2024 Family History Congenital heart disease: Sister and Brother. Heart attack: Sister. Health Status Family Member(s) Immunizations hepatitis B pediatric vaccine: 0 unknown unit (08/01/00) hepatitis B pediatric vaccine: 0 unknown unit (05/25/00) hepatitis B pediatric vaccine: 0 unknown unit (04/17/99) pneumococcal 13-valent conjugate vaccine: 0.5 unknown unit (03/01/20) pneumococcal 13-valent conjugate vaccine: 0.5 unknown unit (08/22/18) SARS-CoV-2 (COVID-19) mRNA-1273 vaccine: 0.25 unknown unit (10/09/21) SARS-CoV-2 (COVID-19) mRNA-1273 vaccine: 0.25 unknown unit (04/28/21) SARS-CoV-2 (COVID-19) mRNA-1273 vaccine: 0.5 unknown unit (09/18/20) SARS-CoV-2 (COVID-19) mRNA-1273 vaccine: 0.5 unknown unit (08/21/20) tetanus/diphtheria/[id number]: 0.5 unknown unit (05/19/18) zoster vaccine, inactivated: 1 unknown unit (05/08/20) zoster vaccine, inactivated: 1 unknown unit (03/01/20) Code Status Code Status - Ordered -- 12/24/24 15:55:00 EDT, Full Code, Constant Order Digitally Signed by RONNIE BAL on 12/25/2024 03:00 PM Digitally Signed by YAKELIN CUADRA MD [facility]07-08-2025 Note Discharge Instructions Thank you for allowing [facility] to assist you with your healthcare needs. The following is importantdischarge information regarding your hospital visit. Your Care Team EL DRIVER DO RONNIE BAL APRN, CNP; Your Diagnosis HTN (hypertension) Right leg weakness Type 2 diabetes mellitus with diabetic neuropathy What to do next Instructions From Your Doctor You were admitted due to leg numbness/weakness. MRI of your brain was negative. MRI lumbaosacral spine shows stenosis(narrowing). You also have some swelling and inflammation within muscles surrounding your spine. You are also noted to have partial tearing of the hamstring muscle in your right leg.You may use Tylenol or ibuprofen/Aleve. You were evaluated by therapy services. No therapy is recommended at this time. Will defer to your orthospine surgeon. Follow Up Appointments Follow Up with PODLOGAR, RADHA CASTELAN.[employer] When:12/31/2024 10:30 AM EDT Where:[address] [place] [address]- [phone] Additional Information: This is your post-hospital follow-up appointment. The Following Activity and Diet Have Been Ordered for You Discharge Activity - Ordered -- Resume your pre-hospitalization activity, 12/25/24 13:42:00 EDT Discharge Diet - Ordered -- No changes were made to your diet during your hospital stay. Please resume your pre hospitalization diet on discharge., 12/25/24 13:42:00 EDT Allergies Bactrim vomiting, "deathly sick" amoxicillin vomiting, "deathly sick" misc antibiotic (non-codified) Medications Please ask your primary doctor or pharmacist before taking any other medication not listed, including over the counter drugs, herbal medications, vitamins and or supplements as they may interact withyour home medications. What How Much When Instructions Last Dose Unchanged aspirin (aspirin 81 mg oral delayed release tablet) 1 tab(s) by mouth Once a day TODAY @ 9A Unchanged cholecalciferol (Vitamin D3) 5000 IU by mouth Two (2) times a day Unchanged cyanocobalamin (Vitamin B12) 1,000 Microgram by mouth Two (2) times a day Unchanged gabapentin (gabapentin 300 mg oral capsule) 3 cap by mouth Daily at bedtime Unchanged glimepiride (glimepiride 2 mg oral tablet) 1 tab(s) by mouth Every day TODAY @ 9AM Unchanged insulin isophane (NPH) (NovoLIN N) 40 unit(s) Subcutaneous Two (2) times a day TODAY @ 9AM Unchanged insulin regular (NovoLIN R) 35 unit(s) Subcutaneous Every day TODAY @ 9AM Unchanged lisinopril (lisinopril 20 mg oral tablet) 1.5 tab(s) by mouth Every day TODAY @ 9AM Unchanged Misc Medication (ATORVASTATIN CALCIUM 40 MG TABS) 1 tab by mouth Daily at bedtime Unchanged multivitamin with minerals (ICaps AREDS 2 oral capsule) 1 cap by mouth Two (2) times a day Unchanged omeprazole (omeprazole 40 mg oral delayed release capsule) 1 cap by mouth Two (2) times a day Unchanged sertraline (Zoloft) 50 Milligram by mouth Once a day TODAY @ 9AM Unchanged traZODone (traZODone 100 mg oral tablet) 2 tab(s) by mouth Daily at bedtime What How Much When Comments Stop Taking DULoxetine 60 Milligram by mouth Two (2) times a day Please take this list to your next doctor s visit. Bring all medications you take, including over the counter medications, herbals and other supplements with you to your doctor s visit. Patients and families are reminded to discard old lists and to update any records with all medication providers or retail pharmacies. Education Materials Peripheral Neuropathy Peripheral neuropathy is a type of nerve damage. It affects nerves that carry signals between the spinal cord and the arms, legs, and the rest of the body (peripheral nerves). It does not affect nerves in the spinal cord or brain. In peripheral neuropathy, one nerve or a group of nerves may be damaged. Peripheral neuropathy is a broad category that includes many specific nerve disorders, like diabetic neuropathy, hereditary neuropathy, and carpal tunnel syndrome. What are the causes? This condition may be caused by: Diabetes. This is the most common cause of peripheral neuropathy. Nerve injury. Pressure or stress on a nerve that lasts a long time. Lack (deficiency) of B vitamins. This can result from alcoholism, poor diet, or a restricted diet. Infections. Autoimmune diseases, such as rheumatoid arthritis and systemic lupus erythematosus. Nerve diseases that are passed from parent to child (inherited). Some medicines, such as cancer medicines (chemotherapy). Poisonous (toxic) substances, such as lead and mercury. Too little blood flowing to the legs. Kidney disease. Thyroid disease. In some cases, the cause of this condition is not known. What are the signs or symptoms? Symptoms of this condition depend on which of your nerves is damaged. Common symptoms include: Loss of feeling (numbness) in the feet, hands, or both. Tingling in the feet, hands, or both. Burning pain. Very sensitive skin. Weakness. Not being able to move a part of the body (paralysis). Muscle twitching. Clumsiness or poor coordination. Loss of balance. Not being able to control your bladder. Feeling dizzy. Sexual problems. How is this diagnosed? Diagnosing and finding the cause of peripheral neuropathy can be difficult. Your health care provider will take your medical history and do a physical exam. A neurological exam will also be done. This involves checking things that are affected by your brain, spinal cord, and nerves (nervous system). For example, your health care provider will check your reflexes, how you move, and what you can feel. You may have other tests, such as: Blood tests. Electromyogram (EMG) and nerve conduction tests. These tests check nerve function and how well the nerves are controlling the muscles. Imaging tests, such as CT scans or MRI to rule out other causes of your symptoms. Removing a small piece of nerve to be examined in a lab (nerve biopsy). This is rare. Removing and examining a small amount of the fluid that surrounds the brain and spinal cord (lumbarpuncture). This is rare. How is this treated? Treatment for this condition may involve: Treating the underlying cause of the neuropathy, such as diabetes, kidney disease, or vitamin deficiencies. Stopping medicines that can cause neuropathy, such as chemotherapy. Medicine to relieve pain. Medicines may include: ? Prescription or oaoo-vza-prykqfv pain medicine. ? Antiseizure medicine. ? Antidepressants. ? Pain-relieving patches that are applied to painful areas of skin. Surgery to relieve pressure on a nerve or to destroy a nerve that is causing pain. Physical therapy to help improve movement and balance. Devices to help you move around (assistive devices). Follow these instructions at home: Medicines Take bwex-ers-extrinx and prescription medicines only as told by your health care provider. Do not take any other medicines without first asking your health care provider. Do not drive or use heavy machinery while taking prescription pain medicine. Lifestyle Do not use any products that contain nicotine or tobacco, such as cigarettes and e-cigarettes. Smoking keeps blood from reaching damaged nerves. If you need help quitting, ask your health care provider. Avoid or limit alcohol. Too much alcohol can cause a vitamin B deficiency, and vitamin B is needed for healthy nerves. Eat a healthy diet. This includes: ? Eating foods that are high in fiber, such as fresh fruits and vegetables, whole grains, and beans. ? Limiting foods that are high in fat and processed sugars, such as fried or sweet foods. General instructions If you have diabetes, work closely with your health care provider to keep your blood sugar under control. If you have numbness in your feet: ? Check every day for signs of injury or infection. Watch for redness, warmth, and swelling. ? Wear padded socks and comfortable shoes. These help protect your feet. Develop a good support system. Living with peripheral neuropathy can be stressful. Consider talkingwith a mental health specialist or joining a support group. Use assistive devices and attend physical therapy as told by your health care provider. This may include using a walker or a cane. Keep all follow-up visits as told by your health care provider. This is important. Contact a health care provider if: You have new signs or symptoms of peripheral neuropathy. You are struggling emotionally from dealing with peripheral neuropathy. Your pain is not well-controlled. Get help right away if: You have an injury or infection that is not healing normally. You develop new weakness in an arm or leg. You fall frequently. Summary Peripheral neuropathy is when the nerves in the arms, or legs are damaged, resulting in numbness, weakness, or pain. There are many causes of peripheral neuropathy, including diabetes, pinched nerves, vitamin deficiencies, autoimmune disease, and hereditary conditions. Diagnosing and finding the cause of peripheral neuropathy can be difficult. Your health care provider will take your medical history, do a physical exam, and do tests, including blood tests and nervefunction tests. Treatment involves treating the underlying cause of the neuropathy and taking medicines to help control pain. Physical therapy and assistive devices may also help. This information is not intended to replace advice given to you by your health care provider. Make sure you discuss any questions you have with your health care provider. Document Released: 05/27/2003 Document Revised: 05/19/2018 Document Reviewed: 08/15/2017 [employer] Patient Education 2020 [employer]. Additional Information VACCINATE! IT SAVES LIVES! Members of the community who have not yet received the COVID-19 vaccine and would like to receive it can visit one of [facility] vaccine clinics. There are many vaccine clinic locations within the [facility]. For locations and available times, please visit https://gettheshot.coronavirus.[place].gov/. It is important to note that some COVID mobile vaccine clinics are held outdoors and may be canceled in rainy or stormy conditions. To learn more about pediatric vaccinations (ages 5-11), we invite you to visit the [facility] webpage. [email or web address].[email or web address].org/pages/0884-Lksnc-Mtbdhahqylu-Emzbcauaac-Tkcbt-Kim stions.htmlTo learn more about the COVID-19 vaccine, we invite you to visit the CDC website for a list of frequently asked questions.https://www.cdc.gov/coronavirus/2019-ncov/vaccines/faq.html [facility] Patient Portal Access Instructions: Stay connected with your healthcare team and access your personal medical information anytime with the [facility] Patient Portal. Please follow the directions below to create your [facility] account: 1.Access the email account you provided upon registration to the hospital/physician office.2.Look for an invitation email from [facility].3.Open the email and access the invitation link: AcceptInvitation to [facility].4.Fill in the required bolaños to create your account. To access your account, visit [email or web address]. Click the blue button labeled "Access Patient Portal" and then log in with the username and password that you created in the steps above. You will be able to view your test results, lab results, a summary of your visits, upcoming appointments and more. There is also a convenient messaging option where you can send secure messages to your p [employer]. In addition, you will have the ability to download any documents or summaries to your computer and/or send the information securely to a physician. Remember that your healthcare information is confidential, so carefully consider who you will allowto register on the [facility] Patient Portal for access to your information. You can also access the [facility] Patient Portal on the [facility] enrique. Simply click on "Patient Portal" and then log into your account. If you would like to receive a full copy of your medical records, please contact the [facility] Medical Records Department by calling [phone], Tuesday through Tuesday between 8 a.m. and 4:30 p.m. HOW TO SAFELY DISPOSE OF PRESCRIPTION MEDICATIONS Please use one of the following methods to safely dispose of your unused medications. 1.Use a drug disposal kit: the drug disposal pouch allows you to safely discard your old and unuseddrugs. Ask your nurse to give you one when you are discharged.2.Visit a local take-back location: Many local pharmacies and police departments have programs that collect old and unwanted prescriptiondrugs. Call your local pharmacy or go to http://WhatClinic.com.[employer]/8X2Pj2q to find one close to you.3.Make use of household items: Use cat litter or old coffee grounds to dispose medications if other options arenot available. Mix your drugs with these household products, seal them in an airtight container andthrow it into the garbage. Call [facility]: [phone] to be sure your drugs can be disposed of in this way. Some medicines may require a different approach.4.Never flush your medications down the toilet. IF YOU HAVE BEEN PRESCRIBED AN OPIOID FOR PAIN If you have been prescribed an opioid (such as hydrocodone, oxycodone or morphine), it is critical to understand the possible side effects and risks of opioid pain medications. Even when taken as directed, opioids can have several side effects including: Tolerance, meaning you might need to take more of a medication for the same pain relief. Nausea, vomiting and/or constipation. Sleepiness, dizziness, dry mouth, confusion, depression or itching. Physical dependence, meaning you have withdrawal symptoms when a medication is stopped, can develop within a few days. KNOW YOUR RESPONSIBILITIES It is important to know exactly how much and how often to take the opioid pain medications you are prescribed. Never take opioids in higher amounts or more often than prescribed. Do not combine opioids with alcohol or other drugs that cause drowsiness, such as benzodiazepines, also known as benzos, including diazepam and alprazolam, muscle relaxants or sleep aids. Never sell or share prescription opioids. This is illegal. Store opioids in a secure place and out of reach of others (including children, family, friends and visitors). The last page of this document has been signed and retained as a CHART COPY. Signatures Patient Education Materials Peripheral Neuropathy Medication Leaflets My discharge plan and instructions have been reviewed and explained to me and MARCI Raymundo BARBARA E understand my current condition and have read and understand these discharge instructions. I have received a written copy of the plan/instructions. If I have questions, I am aware that I should contactmy doctor. Patient/Shadow Graph Weight Operator Signature: Date/Time: Relationship to Patient: Witness Name/Signature: Date/Time: [facility]07-08-2025 Evaluation + Plan noteExtracted from: Title:History and Physical Author:RONNIE BAL APRN-CLOTH STOCK SORTER Date:12/25/24 1. Right leg weakness 2. Type 2 diabetes mellitus with diabetic neuropathy 3. HTN (hypertension) Right leg weakness patient also had right upper extremity drift on exam. ABCD 2 score of 5. Concern for TIA versus stroke. MRI brain negative. Patient also has prior history of lumbar laminectomy. Telehealth neurologist recommends MRI lumbar spine and sacrum. Type 2 diabetes mellitus- Glucose goal 180 or less and avoid hypoglycemia. Corrective sliding scale insulin. ADA diet. HTN- Continue home antihypertensives. Hypomagnesemia- Mg Sulfate 4g IV. DVT prophylaxis:SCD's Code Status:Full Code Plan of care discussed with patient. All questions answered. Patient verbalizes understanding is agreeable to plan of care. This dictation was performed using voice recognition software and may include grammatical and/or spelling errors. [facility] 07-08-2025 Note* Exam Date Time Procedure Performing Provider Status 12/25/24 10:23 AM Echocardiogram, Adul t with Bubble Study- BALJEET CORRALES MD; Auth (Verified) [facility]07-07-2025 Note* Exam Date Time Procedure Performing Provider Status 12/24/24 6:15 PM MRI Spine Sacrum w/o Contrast Aminata JORDAN MD; Auth (Verified) [id number] ORIGINAL EXAMINATION: MRI OF THE SACRUM/COCCYX WITHOUT IV CONTRAST, 12/24/2024 6:15 pm TECHNIQUE: Multiplanar multisequence MRI of the sacrum/coccyx was performed without the administration of intravenous contrast. COMPARISON: None HISTORY: ORDERING SYSTEM PROVIDED HISTORY: Reason for Exam: paresthesia Left leg weakness FINDINGS: There is no evidence of acute fracture, osteonecrosis or transient osteoporosis. No suspicious marrow lesion is noted. For evaluation of the lower lumbar spine please refer to dedicated same day MR lumbar spine report. The sacroiliac joints appear intact. The pubic symphysis appears intact. The proximal attachments of the rectus femoris, iliotibial bands and tensor fascia latae are intact. Moderate right more than left hamstring tendinosis with partial tearing. Mild bilateral insertional gluteus minimus and medius tendinosis right greater than left.. The iliopsoas tendon insertions are preserved. There is no iliopsoas or greater trochanteric bursitis. Please note that study was not protocoled for assessment of internal derangement of the hips. There is no drainable joint effusion, synovitis or appreciable displaced intraarticular body. The imaged portions of the femoral, sciatic and obturator neurovascular bundles appear intact. There is nonspecific intramuscular edema/fluid within the right paraspinal muscles at the lumbosacral level and along the muscle fascia (series 4, image 46), possible small fluid collection measuring 1.7 x 1.4 cm versus more conspicuous intramuscular edema on series 4, image 46 with T2 hyperintensity involving the synovium of the right SI joint, cannot exclude a trivial amount of joint fluid. There is no significant marrow edema in the adjacent sacrum or iliac bone There is no pelvic lymphadenopathy. Very trivial pelvic free fluid. Colonic diverticulosis. Indeterminate cystic 8 mm lesion inferior to the left femoroacetabular joint on series 4, image 10 IMPRESSION: Nonspecific intramuscular edema and fluid within the lower lumbosacral right paraspinal muscles with perifascial edema and localized inflammatory changes. There is a questionable small well-defined intramuscular fluid collection for which pyomyositis/small abscess cannot be excluded. Although these changes may be denervation related or secondary to anasarca/localized edema, infection cannot be excluded recommend clinical correlation and contrast enhanced imaging as further warranted. There is T2 hyperintensity of the upper portion of the right SI joint which appears contiguous with the adjacent muscular changes, although this may be inflammatory given lack of significant surrounding marrow changes infection/septic arthritis cannot be excluded. Hamstring tendinosis with partial tearing on the right and mild gluteus tendinosis right greater than left. Trivial pelvic free fluid. Colonic diverticulosis. Additional incidental findings as above. Interpreted by: Ramila Jordan Preliminary Report By: Ramila Jordan Electronically signed By Ramila Jordan Dictated Date: 12/25/2024 12:23:39 PM Prelim Date: 12/25/2024 12:39:56 PM Sign Date: 12/25/2024 12:39:56 PM Ordering Provider: RONNIE BAL Interpreted by: Ramila Jordan Preliminary Report By: Ramila Jordan Electronically signed By Ramila Jordan Dictated Date: 12/25/2024 12:23:39 PM Prelim Date: 12/25/2024 12:39:56 PM Sign Date: 12/25/2024 12:39:56 PM Ordering Provider: RONNIE BAL [facility]07-07-2025 Note* Exam Date Time Procedure Performing Provider Status 12/24/24 5:36 PM MRI Spine Lumbar w/o Contrast ABEBE GUERRA MD; Auth (Verified) [id number] ORIGINAL HISTORY: Radiculopathy COMPARISON: No TECHNIQUE: 1. Sagittal T1-weighted images. 2. Sagittal T2-weighted images with and without fat saturation. 3. Axial T1-weighted images. 4. Axial T2-weighted images. FINDINGS: The study is degraded by motion. There are 5 lumbar type vertebral bodies for the purpose of this dictation. There is mild grade 1 retrolisthesis at L4-L5. There are right hemilaminectomies at L3-L4 and L4-L5. The remaining vertebral bodies are intact. There is disc desiccation and disc space narrowing, most prominently at L4-L5. The tip of the conus is at the L1 level. There is no abnormal signal within the visualized spinal cord. Specific findings by level: L1-L2: There is a moderate central extrusion. There is mild facet and ligamentum flavum hypertrophy. There is mild stenosis. L2-L3: There is a mild posterior disc bulge. There is mild facet hypertrophy. There is mild to moderate ligamentum flavum hypertrophy. There is mild stenosis. L3-L4: There is a oaba-az-giptsssn posterior disc bulge. There is mild facet hypertrophy. There is mild to moderate right ligamentum flavum hypertrophy. There is mild stenosis. L4-L5: There is mild spondylosis. There is a superimposed right subarticular disc osteophyte complex. There is mild stenosis. L5-S1: There is moderate spondylosis. There is a ecaw-mt-tnreqhms superimposed right subarticular/neural foraminal extrusion, mildly displacing the descending right S1 nerve root. There is moderate right neural foraminal narrowing. IMPRESSION: Limited by motion. Multilevel degenerative changes with superimposed payton laminotomies at L3-L4 and L4-L5. Mild stenosis at L1-L2 through L4-L5. Right subarticular/neural foraminal extrusion at L5-S1, displacing the descending right S1 nerve root. There is right neural foraminal narrowing at this level. Interpreted by: Ahmet Guerra MD Preliminary Report By: Ahmet Guerra MD Electronically signed By Ahmet Guerra MD Dictated Date: 12/25/2024 8:33:05 AM Prelim Date: 12/25/2024 8:38:53 AM Sign Date: 12/25/2024 8:38:53 AM Ordering Provider: RONNIE BAL Interpreted by: Ahmet Guerra MD Preliminary Report By: Ahmet Guerra MD Electronically signed By Ahmet Guerra MD Dictated Date: 12/25/2024 8:33:05 AM Prelim Date: 12/25/2024 8:38:53 AM Sign Date: 12/25/2024 8:38:53 AM Ordering Provider: RONNIE BAL [facility]07-07-2025 Note* Exam Date Time Procedure Performing Provider Status 12/24/24 5:24 PM MRI Brain w/o Contrast SHASHI SMILEY; Auth (Verified) [id number] ORIGINAL EXAMINATION: MRI OF THE BRAIN WITHOUT CONTRAST 12/24/2024 5:26 pm TECHNIQUE: Multiplanar multisequence MRI of the brain was performed without the administration of intravenous contrast. COMPARISON: None. HISTORY: ORDERING SYSTEM PROVIDED HISTORY: Reason for Exam: Transient ischemic attack (TIA) FINDINGS: INTRACRANIAL STRUCTURES/VENTRICLES: There is no acute infarct. No mass effect or midline shift. No evidence of an acute intracranial hemorrhage. The ventricles and sulci are normal in size and configuration. The sellar/suprasellar regions appear unremarkable. The normal signal voids within the major intracranial vessels appear maintained. Few punctate foci of periventricular white matter T2/FLAIR hyperintensity, which though nonspecific likely relates to chronic small vessel disease. ORBITS: Bilateral lens implants. The visualized portion of the orbits demonstrate no acute abnormality. SINUSES: The visualized paranasal sinuses and mastoid air cells demonstrate no acute abnormality. BONES/SOFT TISSUES: The bone marrow signal intensity appears normal. The soft tissues demonstrate no acute abnormality. IMPRESSION: No evidence of acute infarct. Preliminary Report was Dictated by a Resident Interpreted by: Shashi Smiley MD Preliminary Report By: Ted Foy Electronically signed By Shashi Smiley MD Dictated Date: 12/25/2024 3:57:17 AM Prelim Date: 12/25/2024 4:02:53 AM Sign Date: 12/25/2024 4:40:46 AM Ordering Provider: RONNIE BAL Interpreted by: Shashi Smiley MD Preliminary Report By: Ted Foy Electronically signed By Shashi Smiley MD Dictated Date: 12/25/2024 3:57:17 AM Prelim Date: 12/25/2024 4:02:53 AM Sign Date: 12/25/2024 4:40:46 AM Ordering Provider: RONNIE BAL [facility]07-07-2025 Neurology Consult note Date of Service 12/24/2024 Patient Telehealth Consent Consent: I discussed the risks and benefits of a telehealth visit and I obtained the patient s or legally authorized construction sales representative s informed verbal consent to conduct this assessment using telehealth tools with visual and audio. All of the patient s or legally authorized construction sales representative s questions regarding the telehealth interaction were addressed. I provided my name and disclosed to the patient or legally authorized construction sales representative my licensure, certification, or registration. This consultation was remotely performed with the assistance of a trained virtual health liaison working at the originating site. The consultation used real time licensed and encrypted telehealth equipment which allowed a live video connection between my location and the patient s location. Aspects of the evaluation that could not be adequately evaluated by virtual assessment were shared with both the patient and the consulting provider. Location of Patient: [facility] Emergency Department Physician Core Microarchitect: [ enter professional athletes coach stroke Providers name here ] Location and Name of Referring Provider:Dr Patrice [ enter Doctors Name here ] Chief Complaint Presents with right leg weakness. History of Present Illness 69-year-old lady with history of prior lumbar surgeries presented with acute onset of right leg plegia around 12:10 p.m. local time. She reports that she was walking and her right leg suddenly gave out. This is a typical of her prior episodes because she has had weakness in the past prior to her lumbar surgeries but not like this. She denies any significant complaints as far as pain is concerned. Since this incident, her symptoms are improved Physical Exam Vitals and Measurements T: 36.2 C (Oral) HR: 67 (Monitored) RR: 16 BP: 166/67 SpO2: 97% WT: 101.7 kg Weight Dosing Weight: 101.7 kg (12/24/24) CONSIDERING THE INHERENT LIMITATIONS OF TELE MEDICINE, THE NEUROLOGICAL EXAM IS FOLLOWS. Mental Status: Oriented to time, person and place. Follows simple and complex commands. Cranial Nerves: II: Pupils equal, round, reactive to light. III, IV, : Extraocular movements are intact. No ptosis is appreciated. VII: symmetric facial muscles. VIII: Normal symmetric hearing. IX, X: Normal speech Motor: all extremities spontaneously against gravity. drift noted in right arm and leg NIH Stroke Scale NIHSS Score: 2 1a-Level of Consciousness: 0 1b-What is Month/Age: 0 1c-Open/Close Eyes&Hand: 0 2 -Best Gaze: 0 3 -Visual Bolaños: 0 4 -Facial Palsy: 0 1l-Yhkru-Dpmu Arm: 0 1w-Ntiox-Tuqlv Arm: 1 3k-Ummso-Ajho Le 1u-Ptjaq-Tahjt Le 7 -Limb Ataxia: 0 8 -Sensory: 0 9 -Best Language: 0 10-Dysarthria: 0 11-Extinction/Inattention: 0 Thrombolytic Contraindications Low NIHSS with improvement in symptoms Lab Results 12/24 13:43 WBC: 6.5 Hgb: 12.0 Hct: 33.7 L Platelet: 197 Neutrophil %: 56.5 Protime: 11.3 PT International Ratio: 1.0 Glucose Level: 124 H Sodium Level: 142 Potassium Level: 4.1 BUN: 19 H Creatinine Lvl (s): 0.94 Imaging Results and Diagnostics CT head is negative for any acute pathology. CT angio is negative for any large vessel occlusion EKG EC12/24/24: Sinus rhythm Inferior infarct, old Lateral leads are also involved Electronic Signature: MD DELPHINE PRIETO MD 12/24/2024 14:12:36 Recommendations MRI brain without contrast MRI lumbosacral spine without contrast 2D Echocardiogram Permissive hypertension, do not treat for SBP <220 Telemetry monitoring Head end of bed flat Send serum LDL and HbA1c Plavix 300 mg once then 75 mg Q Daily for 21 days Asa 81 mg q daily and high intensity statin termination clerk Speech and swallow evaluation Frequent Neuro checks CT head for any acute change in mental status/neurological exam Management of other acute and chronic medical conditions as per primary team Discussed with requesting provider Procedure/Surgical History No qualifying data available. Medications Inpatient aspirin, 325 mg= 1 tab(s), Oral, Once Home aspirin 81 mg oral delayed release tablet, 81 mg= 1 tab(s), Oral, qDay ATORVASTATIN CALCIUM 40 MG TABS, 1 tab, Oral, qHS DULoxetine, 60 mg, Oral, BID gabapentin 300 mg oral capsule, 900 mg= 3 cap(s), Oral, qHS glimepiride 2 mg oral tablet, 2 mg= 1 tab(s), Oral, Daily ICaps AREDS 2 oral capsule, 1 cap(s), Oral, BID lisinopril 20 mg oral tablet, 30 mg= 1.5 tab(s), Oral, Daily NovoLIN N, 40 unit(s), Subcutaneous, BID NovoLIN R, 35 unit(s), Subcutaneous, Daily omeprazole 40 mg oral delayed release capsule, 40 mg= 1 cap(s), Oral, BID traZODone 100 mg oral tablet, 200 mg= 2 tab(s), Oral, qHS Vitamin B12, 1000 mcg, Oral, BID Vitamin D3, 5000 IU, Oral, BID Zoloft, 50 mg, Oral, qDay Allergies misc antibiotic (non-codified) Digitally Signed by EBER DE GUZMAN MD on 12/24/2024 03:14 PM [facility]07-07-2025 Note* Exam Date Time Procedure Performing Provider Status 12/24/24 2:02 PM EKG [ED AOH] - CV MD DELPHINE PRIETO MD; Auth (Verified) ECG Final Report Sinus rhythm Inferior infarct, old Lateral leads are also involved Electronic Signature: MD DELPHINE PRIETO MD 12/24/2024 14:12:36 [facility]07-07-2025 Note* Exam Date Time Procedure Performing Provider Status 12/24/24 1:[address] Angiography Neck w/ Contrast AHMET GUERRA MD; Auth (Verified) [id number] ORIGINAL HISTORY: Right leg weakness COMPARISON: No TECHNIQUE: CT angiogram of the neck following uncomplicated administration of intravenous contrast, with 3-D post acquisition processing and with results displayed in source images, rotational reconstructions centered on the carotid bifurcations and in maximum intensity projection. Percent stenosis is calculated using NASCET criteria. This exam was performed according to our departmental dose optimization program, and includes the following measures where applicable: automated exposure control, adjustment of the mAs and/or kVp according to patient size and/or exam, and an iterative reconstruction algorithm. FINDINGS: There are atherosclerotic changes to the right distal common and proximal internal carotid artery, mainly calcified plaque. There is no hemodynamically significant stenosis of the right internal carotid artery. There are atherosclerotic changes to the left distal common and proximal internal carotid artery, mainly calcified plaque. There is mild narrowing at the level of the proximal bulb, approximately 25%. The left vertebral artery is dominant. Both vertebral arteries are visualized from origin through skull base. IMPRESSION: Mild atherosclerotic narrowing on the left; no hemodynamically significant stenosis on the right. Interpreted by: Ahmet Guerra MD Preliminary Report By: Ahmet Guerra MD Electronically signed By Ahmet Guerra MD Dictated Date: 12/24/2024 2:17:15 PM Prelim Date: 12/24/2024 2:21:19 PM Sign Date: 12/24/2024 2:21:19 PM Ordering Provider: DELPHINE PRIETO Interpreted by: Ahmet Guerra MD Preliminary Report By: Ahmet Guerra MD Electronically signed By Ahmet Guerra MD Dictated Date: 12/24/2024 2:17:15 PM Prelim Date: 12/24/2024 2:21:19 PM Sign Date: 12/24/2024 2:21:19 PM Ordering Provider: DELPHINE PRIETO [place] [address]-07-2025 Note* Exam Date Time Procedure Performing Provider Status 12/24/24 1:[address] Angiography Head w/ Contrast AHMET GUERRA MD; Auth (Verified) [id number] ORIGINAL HISTORY: Right leg weakness COMPARISON: No TECHNIQUE: CT angiography of the head following uncomplicated administration of intravenous contrast, with 3D post-acquisition processing and with results displayed in source images, sagittal reconstructions through the carotid siphons, maximum intensity projections and volume rendered images. This exam was performed according to our departmental dose optimization program, and includes the following measures where applicable: automated exposure control, adjustment of the mAs and/or kVp according to patient size and/or exam, and an iterative reconstruction algorithm. FINDINGS: The study is mildly limited by technique; the gantry is not aligned with the skull base. Otherwise, there are atherosclerotic changes to the cavernous internal carotid arteries. There is a questionable small anterior communicating artery aneurysm, best seen on coronal views, no more than a mm or 2 in diameter. The major branches of the internal carotid arteries are otherwise patent without occlusion. There are atherosclerotic changes to the vertebral arteries. The major branches of the posterior circulation are otherwise unremarkable. IMPRESSION: Mildly limited examination. No large vessel occlusion. Atherosclerotic changes to the anterior and posterior circulation. Questionable small A-comm aneurysm, no more than a mm or 2 in diameter. Interpreted by: Ahmet Guerra MD Preliminary Report By: Ahmet Guerra MD Electronically signed By Ahmet Guerra MD Dictated Date: 12/24/2024 2:04:27 PM Prelim Date: 12/24/2024 2:08:14 PM Sign Date: 12/24/2024 2:08:14 PM Ordering Provider: DELPHINE PRIETO Interpreted by: Ahmet Guerra MD Preliminary Report By: Ahmet Guerra MD Electronically signed By Ahmet Guerra MD Dictated Date: 12/24/2024 2:04:27 PM Prelim Date: 12/24/2024 2:08:14 PM Sign Date: 12/24/2024 2:08:14 PM Ordering Provider: DELPHINE PRIETO [place] [address]-07-2025 Note* Exam Date Time Procedure Performing Provider Status 12/24/24 1:40 PM XR Chest 1 View GURDEEP HAYES DO; Kwabena h (Verified) [id number] ORIGINAL EXAMINATION: ONE XRAY VIEW OF THE CHEST12/24/2024 1:50 pm COMPARISON: 07/15/2022 HISTORY: ORDERING SYSTEM PROVIDED HISTORY: Reason for Exam: chest pain/SOB FINDINGS: Cardiomediastinal contours are stable. There are hypoventilatory changes. No focal consolidation or pulmonary edema. No pneumothorax or pleural effusion. No acute osseous abnormalities. Degenerative changes of the spine. IMPRESSION: Hypoventilatory changes, otherwise no acute radiographic findings. I have personally reviewed the images of this examination and agree with the resident's findings and interpretation. Interpreted by: Gurdeep Hayes DO Preliminary Report By: Issa Sahni MD Electronically signed By Gurdeep Hayes DO Dictated Date: 12/24/2024 2:00:15 PM Prelim Date: 12/24/2024 2:06:34 PM Sign Date: 12/24/2024 2:06:34 PM Ordering Provider: DELPHINE PRIETO Interpreted by: Gurdeep Hayes DO Preliminary Report By: Issa Sahni MD Electronically signed By Gurdeep Hayes DO Dictated Date: 12/24/2024 2:00:15 PM Prelim Date: 12/24/2024 2:06:34 PM Sign Date: 12/24/2024 2:06:34 PM Ordering Provider: [facility]07-07-2025 Note* Exam Date Time Procedure Performing Provider Status 12/24/24 1:[address] Head or Brain w/o Contrast ABEBE GUERRA MD; Auth (Verified) [id number] ORIGINAL HISTORY: Right leg weakness COMPARISON: No TECHNIQUE: Routine noncontrast head CT, with sagittal and coronal reconstructions. This exam was performed according to our departmental dose optimization program, and includes the following measures where applicable: automated exposure control, adjustment of the mAs and/or kVp according to patient size and/or exam, and an iterative reconstruction algorithm. FINDINGS: The ventricles and sulci are normal in size and configuration. There are no abnormal intra or extra-axial fluid collections. Nuñez-white matter differentiation is maintained. The calvaria and the bones of the base of the skull are intact. IMPRESSION: Unremarkable examination. Interpreted by: Ahmet Guerra MD Preliminary Report By: Ahmet Guerra MD Electronically signed By Ahmet Guerra MD Dictated Date: 12/24/2024 1:35:26 PM Prelim Date: 12/24/2024 1:36:48 PM Sign Date: 12/24/2024 1:36:48 PM Ordering Provider: DELPHINE PRIETO Interpreted by: Ahmet Guerra MD Preliminary Report By: Ahmet Guerra MD Electronically signed By Ahmet Guerra MD Dictated Date: 12/24/2024 1:35:26 PM Prelim Date: 12/24/2024 1:36:48 PM Sign Date: 12/24/2024 1:36:48 PM Ordering Provider: [facility]05-19-2025 Instructions* Patient Instructions* Alysha Sol APRN.[employer]TER - 11/05/2024 2:53 PM EDT Temporarily stop taking atorvastatin for 2 weeks and note if your leg heaviness improves; if your symptoms resolve, inform us so we can adjust your cholesterol management. Begin taking an jzpl-vlv-sgzyvuy fish oil (omega-3) supplement as noted on your discharge instructions to help with your slightly elevated triglycerides. Expect an in-office EKG today; an echocardiogram (echo) will be scheduled to evaluate your heart s structure and function. If the echo shows any abnormalities, you will be referred to cardiology. If you experience another episode of chest pain, especially with arm pain, nausea, or vomiting, go directly to the emergency room. Schedule your mammogram appointment before leaving today; your lung screening order is in process and you will receive a call for scheduling. A follow-up appointment is planned in 3 months. At that time, discuss with Dr. Driver the possibility of starting a GLP-1 medication to help with weight loss. [facility] History of Present illness Narrative* Alysha Sol APRN.ROYA - 11/05/2024 2:20 PM EDT 11/05/2024 Recording using [employer] software for draft documentation of the visit was discussed with the patient/authorized construction sales representative; all questions welcomed and answered. Patient/authorized construction sales representative agreed to proceed HPI: Carlos is a 69-year-old female with a history of diabetes, presenting for follow-up on recent lab work, evaluation of leg heaviness, and recurrent chest pain. Lab Work Review: - Recent lab work completed. - A1c: 6.5%. - CBC, kidney, and liver function tests within normal limits. - Lipid panel: Elevated triglycerides. - Currently taking atorvastatin. Leg Heaviness: - Reports legs feel "heavy" and ache, especially with walking. - Symptoms are present even at rest. - Occasional swelling in the right foot and ankle x years - Desires weight loss; current BMI is 34. - Weight has remained stable at 220 lbs over the past 1.5 years; previously 207 lbs in 2019. Chest Pain: - Recurrent chest pain episodes, approximately 2-3 times in the past 3 weeks. - Most recent episode occurred while in bed, accompanied by left arm pain, nausea, and emesis. - Took one of her 's nitroglycerin tablets during a severe episode. - Denies associated dizziness. - Previous echocardiogram in 2023 was normal. - Wore a hall monitor for a few weeks about a year ago to evaluate for AFib and this was normal. - No current cardiology follow-up appointments scheduled. No other concerns or complaints today. 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 08/07/2011 Seborrheic Keratosis 10/23/2010 Skin tag 08/07/2011 Tobacco abuse 07/13/2013 Trigger finger b/l hands, has had surgeries Type II or unspecified type diabetes mellitus without mention of complication, not stated as uncontrolled Unspecified hereditary and idiopathic peripheral neuropathy Previous Surgical History PAST SURGICAL HISTORY Procedure Laterality Date CHOLECYSTECTOMY HX 1994 Cholecystectomy, laparoscopic COLONOSCOPY 02/19/2015 ESOPHAGOGASTRODUODENOSCOPY TRANSORAL DIAGNOSTIC 03/28/2013 EGD ESOPHAGOGASTRODUODENOSCOPY TRANSORAL DIAGNOSTIC 02/23/2017 EGD PAST SURGICAL HISTORY OF 1974 LEANDRO PAST SURGICAL HISTORY OF 1980 Bilateral salpingoophorectomy PAST SURGICAL HISTORY OF 1986 Lumbar laminectomy PAST SURGICAL HISTORY OF 2002- multiple right partial clavicle resection and first rib resection- septic arthritis PAST SURGICAL HISTORY OF 07/2016 back surgery Lumbar/ thoracic Family History FAMILY HISTORY Problem Relation Age of Onset Diabetes Mother Stroke Mother Coronary Artery Disease Sister Early 40's with finding of ASCVD Coronary Artery Disease Brother 2 brothers diagnosed in their 60's Cancer Brother One brother with brain cancer and another one with tumors "all over his body" Coronary Artery Disease Father ASCVD in his 80's Coronary Artery Disease Brother Cancer Brother Patient Allergies ALLERGIES Allergen Reactions Augmentin [Amoxicil* GI Upset Nausea, vomiting Biaxin [Clarithromy* GI Upset Metallic taste; can tolerate Zpak Byetta [Exenatide] Intolerance GI upset Glucophage [Metform* Intolerance GI upset Iodine Swelling myleogram dye Latex Unknown Omnicef [Cefdinir] GI Upset Nausea, vomiting Current Medications Current Outpatient Medications on File Prior to Visit Medication Sig gabapentin (NEURONTIN) 300 mg capsule Take 300mg by mouth in the morning and afternoon. Take 1200mgat bedtime. glimepiride (AMARYL) 2 mg tablet Take 1 tablet by mouth daily with breakfast. atorvastatin (LIPITOR) 40 mg tablet Take 1 tablet by mouth once daily. lisinopril (ZESTRIL) 20 mg tablet Take 1.5 tablets by mouth once daily. omeprazole (PRILOSEC) 40 mg capsule Take 1 capsule by mouth two times a day. traZODone (DESYREL) 100 mg tablet Take 2 tablets by mouth daily at bedtime. sertraline (ZOLOFT) 50 mg tablet Take 1 tablet by mouth once daily. fluticasone (FLONASE) 50 mcg/actuation nasal spray Use 2 Sprays in each nostril once daily. Rinse mouth after use. triamcinolone acetonide (KENALOG) 0.1 % cream Apply 1 application to affected area three times a day. Apply sparingly to area for rash/itching. gabapentin (NEURONTIN) 300 mg capsule Take 1 tablet by mouth in the morning and afternoon. Take 4 tablets at bedtime. ondansetron orally disintegrating (ZOFRAN ODT) 4 mg disintegrating tablet Take 1 tablet by mouth every 8 hours as needed for nausea/vomiting. Blood-Glucose Meter monitoring kit Test blood sugar(s) 2 times daily. Glucose Meter of Choice - Kit- Dx: Type 2 DM - Uncontrolled E11.65 blood sugar diagnostic (BLOOD GLUCOSE TEST) test strip Test blood sugar(s) 2 times daily. Dx: Type 2 DM - Uncontrolled E11.65 Insulin: Yes Insulin Syringe-Needle U-100 (BD INSULIN SYRINGE UF) 0.5 mL 30 gauge x 1/2" inject with insulin Four times a day with each meal and at bedtime as directed blood sugar diagnostic (BLOOD GLUCOSE TEST) test strip Test blood sugar(s) 2 times daily. Dx: Type 2 DM - Uncontrolled E11.65 Insulin: Yes ACCU-CHEK GUIDE GLUCOSE METER USE DIRECTED Blood-Glucose Meter monitoring kit Glucose Meter of Choice - Kit - Dx: Type 2 DM - Uncontrolled E11.65 insulin regular, human (NOVOLIN R REGULAR U-100 INSULN INJECTION) by INJECTION(UNSPECIFIED PARENTERAL ROUTES) route. 34 units in the Am insulin NPH injection (HumuLIN N,NovoLIN N) 35 units in the Am 45 units in the PM Lancets lancets Test blood sugar(s) BID times daily. Dx: Type 2 DM - Uncontrolled E11.65 Insulin: Yes aspirin, enteric coated (ECOTRIN LOW STRENGTH) 81 mg EC tablet Take 1 tablet by mouth once daily. No current facility-administered medications on file prior to visit. Social History Social History Tobacco Use Smoking status: Former Current packs/day: 0.00 Average packs/day: 0.5 packs/day for 51.4 years (25.7 ttl pk-yrs) Types: Cigarettes Start date: 03/29/1967 Quit date: 08/18/2018 Years since quittin.2 Smokeless tobacco: Never Vaping Use Vaping status: Never Used Substance Use Topics Alcohol use: No Drug use: No Review of Systems: Constitutional: (+) weight gain Cardiovascular: (+) intermittent chest pain, (+) occasional right foot/ankle swelling Gastrointestinal: (+) occasional nausea Musculoskeletal: (+) bilateral leg heaviness, (+) leg aches Neurological: (+) dizziness, (+) memory issues Skin: (+) painful toenail Physical Exam: BP 116/64 (BP Site: Right Arm, BP Position: Sitting, BP Cuff Size: Large Adult) Pulse 74 Wt 99.8 kg (220 lb) SpO2 98% BMI 34.13 kg/m GENERAL: NAD, alert and oriented. SKIN: Unremarkable, no rash or skin lesions. LUNGS: Clear to auscultation bilaterally, no wheezes/rhonchi/rales. HEART: Regular rate and rhythm, no murmurs. No ectopy. EXTREMITIES: Normal, no deformities, no skin discoloration, no edema. NEURO: Awake, alert and oriented x3, cranial nerves II-XII grossly intact, normal gait, no involuntary motions. Diagnostics reviewed: Labs: - Hemoglobin A1c: 6.5 - CBC: Normal - Kidney function: Normal - Liver function: Normal - Lipid panel: Elevated triglycerides Imaging: - Echocardiogram: Normal Assessment/Plan: 1. Encounter for screening for lung cancer (Z12.2) - Order for lung cancer screening is active. - Instructed patient that the clinic will contact her to schedule the screening. 2. Chest pain, unspecified type (R07.9) - Episodes of chest pain accompanied by arm pain and nausea, occurring approximately once every 2 weeks - Previous echocardiogram in 2023 was normal. - Ordered EKG and repeat echocardiogram d/t new symptoms. - EKG NSR rate of 69, no concerns - Advised patient to seek immediate medical attention in the ER if chest pain recurs, due to potential risk of myocardial infarction. - If EKG or echocardiogram results are abnormal, will refer to cardiology. 3. Type 2 diabetes mellitus without complication, with long-term current use of insulin (HCC) (E11.9) - Hemoglobin A1c is 6.5%, consistently below 7% for the past 3 years. - Discussed potential impact of GLP-1 agonists on blood glucose levels; will consider after above cardiac concerns are resolved. Will need to change DM regimen slightly if we add this medication. - Follow-up with Dr. Driver in 3-6 months to discuss potential initiation of GLP-1 agonist therapy. 4. Primary hypertension (I10) - Blood pressure is well-controlled. 5. Mixed hyperlipidemia (E78.2) - Lipid panel shows slightly elevated triglycerides; other cholesterol levels are improved. - Recommended discontinuing atorvastatin for 2 weeks to assess if it is contributing to myalgia. - Advised starting an vnbt-kzy-iaajkfj fish oil omega-3 supplement to target triglycerides. - Will reassess lipid levels and symptoms after 2 weeks. 6. Myalgia (M79.10) - Experiencing heaviness and aching in legs, possibly related to atorvastatin use. - Discontinue atorvastatin for 2 weeks to evaluate if symptoms improve. - Will reassess symptoms after 2 weeks. 7. Obesity, Class I, BMI 30-34.9 (E66.811) - Current BMI is 34. - Discussed weight loss as a potential factor to alleviate myalgia. - Will consider GLP-1 agonist therapy for weight management after cardiac evaluation and podiatry concerns are addressed. Follow-up in 3 months , sooner if needed. Prescription instructions reviewed with patient as applicable. Potential red flag symptoms discussed with the patient. Reviewed appropriate action plan to take if red flag symptoms occur. Patient agreeable to treatment plan. Orders placed in this encounter: Office Visit on 11/05/24 CONSULT LUNG CANCER SCREENING CLINIC ECG COMPLETE ECHO Alysha Sol APRN.CLOTH STOCK SORTER [facility] NoteHNO ID: [id number] Author: ALYSHA SOL APRN.ROYA Service: ? Author Type: Nurse Practitioner Type: Progress Notes Filed: 11/05/2024 15:33 Note Text: 11/05/2024 Recording using ambient [email or web address] software for draft documentation of the visit was discussed with the patient/authorized construction sales representative; all questions welcomed and answered. Patient/authorized construction sales representative agreed to proceed HPI: Carlos is a 69-year-old female with a history of diabetes, presenting for follow-up on recent lab work, evaluation of leg heaviness, and recurrent chest pain. Lab Work Review: - Recent lab work completed. - A1c: 6.5%. - CBC, kidney, and liver function tests within normal limits. - Lipid panel: Elevated triglycerides. - Currently taking atorvastatin. Leg Heaviness: - Reports legs feel "heavy" and ache, especially with walking. - Symptoms are present even at rest. - Occasional swelling in the right foot and ankle x years - Desires weight loss; current BMI is 34. - Weight has remained stable at 220 lbs over the past 1.5 years; previously 207 lbs in 2019. Chest Pain: - Recurrent chest pain episodes, approximately 2-3 times in the past 3 weeks. - Most recent episode occurred while in bed, accompanied by left arm pain, nausea, and emesis. - Took one of her 's nitroglycerin tablets during a severe episode. - Denies associated dizziness. - Previous echocardiogram in 2023 was normal. - Wore a hall monitor for a few weeks about a year ago to evaluate for AFib and this was normal. - No current cardiology follow-up appointments scheduled. No other concerns or complaints today. 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 08/07/2011 Seborrheic Keratosis 10/23/2010 Skin tag 08/07/2011 Tobacco abuse 07/13/2013 Trigger finger b/l hands, has had surgeries Type II or unspecified type diabetes mellitus without mention of complication, not stated as uncontrolled Unspecified hereditary and idiopathic peripheral neuropathy Previous Surgical History PAST SURGICAL HISTORY Procedure Laterality Date CHOLECYSTECTOMY HX 1994 Cholecystectomy, laparoscopic COLONOSCOPY 02/19/2015 ESOPHAGOGASTRODUODENOSCOPY TRANSORAL DIAGNOSTIC 03/28/2013 EGD ESOPHAGOGASTRODUODENOSCOPY TRANSORAL DIAGNOSTIC 02/23/2017 EGD PAST SURGICAL HISTORY OF 1974 LEANDRO PAST SURGICAL HISTORY OF 1980 Bilateral salpingoophorectomy PAST SURGICAL HISTORY OF 1986 Lumbar laminectomy PAST SURGICAL HISTORY OF 2002- multiple right partial clavicle resection and first rib resection- septic arthritis PAST SURGICAL HISTORY OF 07/2016 back surgery Lumbar/ thoracic Family History FAMILY HISTORY Problem Relation Age of Onset Diabetes Mother Stroke Mother Coronary Artery Disease Sister Early 40's with finding of ASCVD Coronary Artery Disease Brother 2 brothers diagnosed in their 60's Cancer Brother One brother with brain cancer and another one with tumors "all over his body" Coronary Artery Disease Father ASCVD in his 80's Coronary Artery Disease Brother Cancer Brother Patient Allergies ALLERGIES Allergen Reactions Augmentin [Amoxicil* GI Upset Nausea, vomiting Biaxin [Clarithromy* GI Upset Metallic taste; can tolerate Zpak Byetta [Exenatide] Intolerance GI upset Glucophage [Metform* Intolerance GI upset Iodine Swelling myleogram dye Latex Unknown Omnicef [Cefdinir] GI Upset Nausea, vomiting Current Medications Current Outpatient Medications on File Prior to Visit Medication Sig gabapentin (NEURONTIN) 300 mg capsule Take 300mg by mouth in the morning and afternoon. Take 1200mg at bedtime. glimepiride (AMARYL) 2 mg tablet (more content not included)...[facility]05-14-2025 Telephone encounter Note* Telephone Encounter - El Driver DO - 10/31/2024 9:01 PM EDT Patient missed her office visit today Please make a follow up visit Okay with [employer] Need for labs to be reviewed El Driver DO [facility]05-14-2025 Miscellaneous Notes* Telephone Encounter - El Driver DO - 10/31/2024 9:01 PM EDT Patient missed her office visit today Please make a follow up visit Okay with [employer] Need for labs to be reviewed El Driver DO documented [facility] Telephone encounter Note * Telephone Encounter - Cathleen Hemphill RN - 10/02/2024 4:00 PM EDT Patient returned call and given provider's message below and patient verbalized understanding. Vern Hemphill RN [facility]04-15-2025 Miscellaneous Notes* Telephone Encounter - Cathleen Hemphill RN - 10/02/2024 4:00 PM EDT Patient returned call and given provider's message below and patient verbalized understanding. Vern Hemphill RN * Telephone Encounter - Negin Gonzalez MA - 10/02/2024 1:04 PM EDT Message left for pt to call back. Negin Gonzalez MA * Telephone Encounter - Addy Oakes PA-C - 10/02/2024 10:47 AM EDT Please let patient know that her last handicapped parking permit letter was dated for expiration 10/03/23 + 24 months, so should still be good. I did order fasting labs that can be completed prior to her upcoming appointment. Addy Oakes PA-C * Telephone Encounter - Aida Guerrero LPN - 10/01/2024 11:02 AM EDT Pt is requesting a rx for handicap placard. Pt is asking if there is a place to put "indefinitely" on how long placard is needed. Pt reports this last rx in a year. Mail rx to home. Pt also has an appt 10/31/24 and is asking if labs are needed. Last labs were 04/16/25. Please review and advise. Aida Guerrero LPN documented in [facility] encounterL[facility] Telephone encounter Note * Telephone Encounter - Negin Gonzalez MA - 10/02/2024 1:04 PM EDT Message left for pt to call back. Negin Gonzalez MA [facility]04-15-2025 Telephone encounter Note* Telephone Encounter - Addy Oakes PA-C - 10/02/2024 10:47 AM EDT Please let patient know that her last handicapped parking permit letter was dated for expiration 10/03/23 + 24 months, so should still be good. I did order fasting labs that can be completed prior to her upcoming appointment. Addy Oakes PA-C [facility]04-14-2025 Telephone encounter Note* Telephone Encounter - Aida Guerrero LPN - 10/01/2024 11:02 AM EDT Pt is requesting a rx for handicap placard. Pt is asking if there is a place to put "indefinitely" on how long placard is needed. Pt reports this last rx in a year. Mail rx to home. Pt also has an appt 10/31/24 and is asking if labs are needed. Last labs were 04/16/25. Please review and advise. Aida Guerrero LPN [facility]04-14-2025 NoteHNO ID: [id number] Author: MEENAKSHI HAMM, ? Service: ? Author Type: Physician Type: Progress Notes Filed: 10/01/2024 10:01 Note Text: Leo Woodson is a 69-year-old female with a history of diabetes and neuropathy, presenting for left hallux pain. Left Hallux Pain: - Severe pain in the left hallux, particularly the toenail, x3-4 months. - Pain exacerbated by pressure from shoes; difficulty wearing certain footwear. - Tried Voltaren gel with some relief. - Denies known trauma; uncertain if pain is related to dropping a frozen chicken on the foot. - Family history of thick toenails in mother, who was also diabetic. Neuropathy: - Chronic burning, tingling, and numbness in feet, especially at night. - Symptoms improve with ambulation. - Taking Gabapentin 1800 mg daily with some relief. Diabetes: - Diagnosed over 30 years ago. - Recent A1c levels: 6.6% (March), 6.7% (August 2022), 6.8% (November 2021). Social History: - Former smoker; quit 6 years ago after multiple attempts. 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 08/07/2011 Seborrheic Keratosis 10/23/2010 Skin tag 08/07/2011 Tobacco abuse 07/13/2013 Trigger finger b/l hands, has had surgeries Type II or unspecified type diabetes mellitus without mention of complication, not stated as uncontrolled Unspecified hereditary and idiopathic peripheral neuropathy Current Outpatient Medications Medication Instructions ACCU-CHEK GUIDE GLUCOSE METER USE DIRECTED aspirin, enteric coated (ECOTRIN LOW STRENGTH) 81 mg, ORAL, DAILY atorvastatin (LIPITOR) 40 mg, ORAL, DAILY blood sugar diagnostic (BLOOD GLUCOSE TEST) test strip Test blood sugar(s) 2 times daily. Dx: Type 2 DM - Uncontrolled E11.65 Insulin: Yes blood sugar diagnostic (BLOOD GLUCOSE TEST) test strip Test blood sugar(s) 2 times daily. Dx: Type 2 DM - Uncontrolled E11.65 Insulin: Yes Blood-Glucose Meter monitoring kit Glucose Meter of Choice - Kit - Dx: Type 2 DM - Uncontrolled E11.65 Blood-Glucose Meter monitoring kit Test blood sugar(s) 2 times daily. Glucose Meter of Choice - Kit - Dx: Type 2 DM - Uncontrolled E11.65 fluticasone (FLONASE) 50 mcg/actuation nasal spray 2 sprays, EACH NOSTRIL, DAILY, Rinse mouth after use. gabapentin (NEURONTIN) 300 mg capsule Take 1 tablet by mouth in the morning and afternoon. Take 4 tablets at bedtime. gabapentin (NEURONTIN) 300 mg capsule Take 300mg by mouth in the morning and afternoon. Take 1200mg at bedtime. glimepiride (AMARYL) 2 mg, ORAL, DAILY WITH BREAKFAST insulin NPH injection (HumuLIN N,NovoLIN N) 35 units in the Am 45 units in the PM insulin regular, human (NOVOLIN R REGULAR U-100 INSULN INJECTION) by INJECTION(UNSPECIFIED PARENTERAL ROUTES) route. 34 units in the Am Insulin Syringe-Needle U-100 (BD INSULIN SYRINGE UF) 0.5 mL 30 gauge x 1/2" inject with insulin Four times a day with each meal and at bedtime as directed Lancets lancets Test blood sugar(s) BID times daily. Dx: Type 2 DM - Uncontrolled E11.65 Insulin: Yes lisinopril (ZESTRIL) 30 mg, ORAL, DAILY omeprazole (PRILOSEC) 40 mg, ORAL, 2 TIMES DAILY ondansetron orally disintegrating (ZOFRAN ODT) 4 mg, ORAL, EVERY 8 HOURS NEEDED sertraline (ZOLOFT) 50 mg, ORAL, DAILY traZODone (DESYREL) 200 mg, ORAL, AT BEDTIME triamcinolone acetonide (KENALOG) 0.1 % cream 1 application , TOPICAL, 3 TIMES DAILY, Apply sparingly to area for rash/itching. ALLERGIES Allergen Reactions Augmentin [Amoxicil* GI Upset Nausea, vomiting Biaxin [Clarithromy* GI Upset Metallic taste; can tolerate Zpak Byet (more content not included)...[facility]04-14-2025 History of Present illness Narrative* Meenakshi Hamm - 10/01/2024 10:01 AM EDT Leo Woodson is a 69-year-old female with a history of diabetes and neuropathy, presenting for left hallux pain. Left Hallux Pain: - Severe pain in the left hallux, particularly the toenail, x3-4 months. - Pain exacerbated by pressure from shoes; difficulty wearing certain footwear. - Tried Voltaren gel with some relief. - Denies known trauma; uncertain if pain is related to dropping a frozen chicken on the foot. - Family history of thick toenails in mother, who was also diabetic. Neuropathy: - Chronic burning, tingling, and numbness in feet, especially at night. - Symptoms improve with ambulation. - Taking Gabapentin 1800 mg daily with some relief. Diabetes: - Diagnosed over 30 years ago. - Recent A1c levels: 6.6% (March), 6.7% (August 2022), 6.8% (November 2021). Social History: - Former smoker; quit 6 years ago after multiple attempts. 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 08/07/2011 Seborrheic Keratosis 10/23/2010 Skin tag 08/07/2011 Tobacco abuse 07/13/2013 Trigger finger b/l hands, has had surgeries Type II or unspecified type diabetes mellitus without mention of complication, not stated as uncontrolled Unspecified hereditary and idiopathic peripheral neuropathy Current Outpatient Medications Medication Instructions ACCU-CHEK GUIDE GLUCOSE METER USE DIRECTED aspirin, enteric coated (ECOTRIN LOW STRENGTH) 81 mg, ORAL, DAILY atorvastatin (LIPITOR) 40 mg, ORAL, DAILY blood sugar diagnostic (BLOOD GLUCOSE TEST) test strip Test blood sugar(s) 2 times daily. Dx: Type 2 DM - Uncontrolled Insulin: Yes blood sugar diagnostic (BLOOD GLUCOSE TEST) test strip Test blood sugar(s) 2 times daily. Dx: Type 2 DM - Uncontrolled Insulin: Yes Blood-Glucose Meter monitoring kit Glucose Meter of Choice - Kit - Dx: Type 2 DM - Uncontrolled E11.65 Blood-Glucose Meter monitoring kit Test blood sugar(s) 2 times daily. Glucose Meter of Choice - Kit- Dx: Type 2 DM - Uncontrolled E11.65 fluticasone (FLONASE) 50 mcg/actuation nasal spray 2 sprays, EACH NOSTRIL, DAILY, Rinse mouth afteruse. gabapentin (NEURONTIN) 300 mg capsule Take 1 tablet by mouth in the morning and afternoon. Take 4 tablets at bedtime. gabapentin (NEURONTIN) 300 mg capsule Take 300mg by mouth in the morning and afternoon. Take 1200mgat bedtime. glimepiride (AMARYL) 2 mg, ORAL, DAILY WITH BREAKFAST insulin NPH injection (HumuLIN N,NovoLIN N) 35 units in the Am 45 units in the PM insulin regular, human (NOVOLIN R REGULAR U-100 INSULN INJECTION) by INJECTION(UNSPECIFIED PARENTERAL ROUTES) route. 34 units in the Am Insulin Syringe-Needle U-100 (BD INSULIN SYRINGE UF) 0.5 mL 30 gauge x 1/2" inject with insulin Four times a day with each meal and at bedtime as directed Lancets lancets Test blood sugar(s) BID times daily. Dx: Type 2 DM - Uncontrolled E11.65 Insulin: Yes lisinopril (ZESTRIL) 30 mg, ORAL, DAILY omeprazole (PRILOSEC) 40 mg, ORAL, 2 TIMES DAILY ondansetron orally disintegrating (ZOFRAN ODT) 4 mg, ORAL, EVERY 8 HOURS NEEDED sertraline (ZOLOFT) 50 mg, ORAL, DAILY traZODone (DESYREL) 200 mg, ORAL, AT BEDTIME triamcinolone acetonide (KENALOG) 0.1 % cream 1 application , TOPICAL, 3 TIMES DAILY, Apply sparingly to area for rash/itching. ALLERGIES Allergen Reactions Augmentin [Amoxicil* GI Upset Nausea, vomiting Biaxin [Clarithromy* GI Upset Metallic taste; can tolerate Zpak Byetta [Exenatide] Intolerance GI upset Glucophage [Metform* Intolerance GI upset Iodine Swelling myleogram dye Latex Unknown Omnicef [Cefdinir] GI Upset Nausea, vomiting Family History Problem Relation Age of Onset Diabetes Mother Stroke Mother Coronary Artery Disease Sister Early 40's with finding of ASCVD Coronary Artery Disease Brother 2 brothers diagnosed in their 60's Cancer Brother One brother with brain cancer and another one with tumors "all over his body" Coronary Artery Disease Father ASCVD in his 80's Coronary Artery Disease Brother Cancer Brother Objective There were no vitals taken for this visit. - Cardiovascular: Dorsalis pedis and posterior tibial pulses non-palpable bilaterally; capillary refill time <5 seconds; skin temperature warm to cool. - Skin: Hair growth absent on both feet; severely thickened, incurvated, discolored left great toenail with pain to medial and lateral nail folds; remaining toenails mostly normal in length and color; skin thickening along left fifth metatarsal head consistent with early callus formation. - Neurological: Protective sensation intact bilaterally; vibratory sensation absent in bilateral hallux. - Musculoskeletal: Decreased ROM of bilateral first metatarsophalangeal joints, right worse than left, without pain; muscle strength 5/5 for dorsiflexion, plantar flexion, inversion, and eversion; prominent styloid process of bilateral fifth metatarsals without pain. Labs: (March) Hemoglobin A1c: 6.6 (08/2022) Hemoglobin A1c: 6.7 (11/2021) Hemoglobin A1c: 6.8 1. Diabetic polyneuropathy associated with type 2 diabetes mellitus (HCC) (E11.42) - Neuropathy present with burning, tingling, and numbness in feet, especially at night. - Protective sensation intact to bilateral feet; vibratory sensation absent to bilateral hallux. - Continue Gabapentin 1800 mg daily. - Educated on importance of avoiding barefoot walking, moisturizing feet, and wearing appropriate footwear. - Reviewed A1c levels: March 6.6%, August 2022 6.7%, November 2021 6.8%. 2. Onychodystrophy (L60.3) - Severely thickened, incurvated, discolored left great toenail with pain to medial lateral nail fold. - Discussed option of toenail removal with chemical matricectomy to prevent regrowth. - Ordered circulation study to assess blood flow before considering procedure. - Filed toenail to reduce thickness. 3. Diminished pulses in lower extremity (R09.89) - Dorsalis pedis and posterior tibial pulses non-palpable bilaterally. - Capillary refill time less than 5 seconds. - Ordered circulation study to evaluate vascular status. 4. Pain in toe of right foot (M79.674) 5. Pain in toe of left foot (M79.675) - Significant pain in left great toe due to onychodystrophy. - Discussed and initiated measures to alleviate pressure from footwear. - consider toenail removal pending pvr 6. 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 (M19.071) - Decreased range of motion in bilateral first MTP joints, right worse than left, without pain. - Advised on wearing wider, supportive shoes to accommodate joint changes. Attestation Recording using [employer] software for draft documentation of the visit was discussed with the patient/authorized construction sales representative; all questions welcomed and answered. Patient/authorized construction sales representative agreed to proceed * Bettina Darnell LPN - 10/01/2024 9:29 AM EDT AMB ROOMING INTAKE FLOWSHEET DATA Pain Pain Level: 9 Pain Location: Toe Description: Throbbing, Stabbing, Sore Duration Amount of Time: 3 Duration Units: Months Frequency: Continuous Intervention/Comfort measure: Reposition, Relaxation Patient presents with: Right Foot - Diabetic Foot Care, New Left Foot - Diabetic Foot Care, New, Mass Left Great Toe - New, Ingrown Toenail, Pain Bettina Darnell LPN documented in this encounterL[facility] Instructions* Patient Instructions* Meenakshi Hamm - 10/01/2024 10:01 AM EDT Diabetes Foot Care Instructions When you have diabetes, proper foot care is very important. Poor foot care may lead to amputation of a foot or leg. As a person with diabetes, you are more vulnerable to foot problems, because diabetes can damage your nerves and reduce blood flow to your feet. Here are some diabetes foot care tips to follow: Wash and Dry Your Feet Daily Use mild soaps Use warm water Pat your skin dry; do not rub. Thoroughly dry your feet. After washing, use lotion on your feet to prevent cracking. Do not put lotion between your toes. Examine Your Feet Each Day Check the tops and bottoms of your feet. Have someone else look at your feet if you cannot see them. Check for dry, cracked skin. Look for blisters, cuts, scratches, or other sores. Check for redness, increased warmth, or tenderness when touching any area of your feet. Check for ingrown toenails, corns, and calluses. If you get a blister or sore from your shoes, do not "pop" it. Apply a bandage and wear a differentpair of shoes. Take Care of Your Toenails Cut toenails after bathing, when they are soft. Cut toenails straight across and smooth with a nail file. Avoid cutting into the corners of toes. Do not cut cuticles. If you have neuropathy (or decreased sensation in your feet) a high school academic coach should always cut your toenails. Be Careful When Exercising Walk and exercise in comfortable shoes. Do not exercise when you have open sores on your feet. Protect Your Feet With Shoes and Socks Never go barefoot. Always protect your feet by wearing shoes or hard-soled slippers or footwear. Avoid shoes with high heels and pointed toes. Avoid shoes that expose your toes or heels (such as open-toed shoes or sandals). These types of shoes increase your risk for injury and potential infections. Try on new footwear with the type of socks you usually wear. Do not wear new shoes for more than an hour at a time. Change your socks daily. Look and feel inside your shoes before putting them on to make sure there are no foreign objects orrough areas. Avoid tight socks. Wear natural-fiber socks (cotton, wool, or a cotton-wool blend). Wear special shoes if your health care provider recommends them. Wear shoes/boots that will protect your feet from various weather conditions (cold, moisture, etc.). Make sure your shoes fit properly. If you have neuropathy (nerve damage), you may not notice that your shoes are too tight. Perform the "footwear test" described below. Footwear Test Use this simple test to see if your shoes fit correctly: Stand on a piece of paper. (Make sure you are standing and not sitting, because your foot changes shape when you stand.) Trace the outline of your foot. Trace the outline of your shoe. Compare the tracings: Is the shoe too narrow? Is your foot crammed into the shoe? The shoe should be at least 1/2 inch longer than your longest toe and as wide as your foot. Proper Shoe Choices The following types of shoes are best for people with diabetes Closed toes and heels Leather uppers without a seam inside At least 1/2 inch extra space at the end of your longest toe Inside of shoe should be soft with no rough areas Outer sole should be made of stiff material Shoes should be at least as wide as your feet Tips for Foot Care in Diabetes Don't wait to treat a minor foot problem if you have diabetes. Follow your health care provider's guidelines and first aid guidelines. Report foot injuries and infections to your health care provider immediately. Check water temperature with your elbow, not your foot. Do not use a heating pad on your feet. Do not cross your legs. Do not self-treat your corns, calluses, or other foot problems. Go to your health care provider or high school academic coach to treat these conditions. documented in this encounterLake[facility]04-[facility]25 NoteHNO ID: [id number] Author: BETTINA DARNELL LPN Service: ? Author Type: LICENSED NURSE Type: Progress Notes Filed: 10/01/2024 10:01 Note Text: AMB ROOMING INTAKE FLOWSHEET DATA Pain Pain Level: 9 Pain Location: Toe Description: Throbbing, Stabbing, Sore Duration Amount of Time: 3 Duration Units: Months Frequency: Continuous Intervention/Comfort measure: Reposition, Relaxation Patient presents with: Right Foot - Diabetic Foot Care, New Left Foot - Diabetic Foot Care, New, Mass Left Great Toe - New, Ingrown Toenail, Pain [facility] Telephone encounter Note* Telephone Encounter - [place] Yuridia Aleman - 09/29/2024 11:14 AM EDT Prescription Refill Information The patient has been identified by name and date of : Yes Caregiver verified no other encounters exist for this prescription request: Yes Caregiver confirmed with patient/requestor that no other refills are due, in the near future, with this provider at this time: Yes The last office visit in the department: 06/04/24 Does the patient have a future office visit with this provider/department: No Requested Prescriptions Pending Prescriptions Disp Refills gabapentin (NEURONTIN) 300 mg capsule 540 capsule 3 Sig: Take 300mg by mouth in the morning and afternoon. Take 1200mg at bedtime. Last sent was not a 90 days supply;updated to correct quantity: 540 - she takes 6 tablets daily. Please re-submit to Catarina Aleman September 29, 2024 11:15 AM [facility]04-12-2025 Miscellaneous Notes* Telephone Encounter - Yuridia Cabrera - 09/29/2024 11:14 AM EDT Prescription Refill Information The patient has been identified by name and date of : Yes Caregiver verified no other encounters exist for this prescription request: Yes Caregiver confirmed with patient/requestor that no other refills are due, in the near future, with this provider at this time: Yes The last office visit in the department: 06/04/24 Does the patient have a future office visit with this provider/department: No Requested Prescriptions Pending Prescriptions Disp Refills gabapentin (NEURONTIN) 300 mg capsule 540 capsule 3 Sig: Take 300mg by mouth in the morning and afternoon. Take 1200mg at bedtime. Last sent was not a 90 days supply;updated to correct quantity: 540 - she takes 6 tablets daily. Please re-submit to Catarina Resendiz [facility] September 29, 2024 11:15 AM documented in [facility] encounterL[facility] Telephone encounter Note * Telephone Encounter - Kiara Taylor - 08/30/2024 4:28 PM EDT Asking for 90 day supply. Prescription Refill Information The patient has been identified by name and date of : Yes Caregiver verified no other encounters exist for this prescription request: Yes Caregiver confirmed with patient/requestor that no other refills are due, in the near future, with this provider at this time: Yes The last office visit in the department: 06/04/24 Does the patient have a future office visit with this provider/department: No Requested Prescriptions Pending Prescriptions Disp Refills glimepiride (AMARYL) 2 mg tablet 90 tablet 3 Sig: Take 1 tablet by mouth daily with breakfast. atorvastatin (LIPITOR) 40 mg tablet 90 tablet 3 Sig: Take 1 tablet by mouth once daily. lisinopril (ZESTRIL) 20 mg tablet 135 tablet 3 Sig: Take 1.5 tablets by mouth once daily. omeprazole (PRILOSEC) 40 mg capsule 180 capsule 2 Sig: Take 1 capsule by mouth two times a day. gabapentin (NEURONTIN) 300 mg capsule 180 capsule 1 Sig: Take 300mg by mouth in the morning and afternoon. Take 1200mg at bedtime. Kiara Taylor August 30, 2024 4:32 PM [facility]03-13-[facility]25 Miscellaneous Notes* Telephone Encounter - Kiara Taylor - 08/30/2024 4:28 PM EDT Asking for 90 day supply. Prescription Refill Information The patient has been identified by name and date of : Yes Caregiver verified no other encounters exist for this prescription request: Yes Caregiver confirmed with patient/requestor that no other refills are due, in the near future, with this provider at this time: Yes The last office visit in the department: 06/04/24 Does the patient have a future office visit with this provider/department: No Requested Prescriptions Pending Prescriptions Disp Refills glimepiride (AMARYL) 2 mg tablet 90 tablet 3 Sig: Take 1 tablet by mouth daily with breakfast. atorvastatin (LIPITOR) 40 mg tablet 90 tablet 3 Sig: Take 1 tablet by mouth once daily. lisinopril (ZESTRIL) 20 mg tablet 135 tablet 3 Sig: Take 1.5 tablets by mouth once daily. omeprazole (PRILOSEC) 40 mg capsule 180 capsule 2 Sig: Take 1 capsule by mouth two times a day. gabapentin (NEURONTIN) 300 mg capsule 180 capsule 1 Sig: Take 300mg by mouth in the morning and afternoon. Take 1200mg at bedtime. Kiara Taylor August 30, 2024 4:32 PM documented in this encounterL[facility]02-19-[facility]25 Telephone encounter Note * Telephone Encounter - Talya Aburto LPN - 08/08/2024 3:18 PM EST The patient has been identified by name and date of : Yes Caregiver verified no other encounters exist for this prescription request: Yes Caregiver confirmed with patient/requestor that no other refills are due, in the near future, with this provider at this time: Yes The last office visit in the department: 06/04/2024 Does the patient have a future office visit with this provider/department: No Visit date not found Requested Prescriptions Pending Prescriptions Disp Refills traZODone (DESYREL) 100 mg tablet 180 tablet 3 Sig: Take 2 tablets by mouth daily at bedtime. sertraline (ZOLOFT) 50 mg tablet 90 tablet 3 Sig: Take 1 tablet by mouth once daily. Talya Aburto LPN August 08, 2024 3:18 PM [facility]02-19-[facility] Miscellaneous Notes* Telephone Encounter - Talya Aburto LPN - 08/08/2024 3:18 PM EST The patient has been identified by name and date of : Yes Caregiver verified no other encounters exist for this prescription request: Yes Caregiver confirmed with patient/requestor that no other refills are due, in the near future, with this provider at this time: Yes The last office visit in the department: 06/04/2024 Does the patient have a future office visit with this provider/department: No Visit date not found Requested Prescriptions Pending Prescriptions Disp Refills traZODone (DESYREL) 100 mg tablet 180 tablet 3 Sig: Take 2 tablets by mouth daily at bedtime. sertraline (ZOLOFT) 50 mg tablet 90 tablet 3 Sig: Take 1 tablet by mouth once daily. Talya Aburto LPN August 08, 2024 3:18 PM documented in this encounterL[facility]02-18-[facility]25 Telephone encounter Note * Telephone Encounter - Margo Joseph MA - 08/07/2024 9:00 AM EST Patient given results and verbalized understanding of instructions given. Margo Joseph MA [facility]02-18-[facility]25 Miscellaneous Notes* Telephone Encounter - Margo Joseph MA - 08/07/2024 9:00 AM EST Patient given results and verbalized understanding of instructions given. Margo Joseph MA * Telephone Encounter - Karen Chavez PA - 08/07/2024 8:50 AM EST Please let patient know she is negative for COVID flu and RSV documented in this encounterL[facility]02-18-[facility]25 Telephone encounter Note * Telephone Encounter - Karen Chavez PA - 08/07/2024 8:50 AM EST Please let patient know she is negative for COVID flu and RSV [facility] Work Phone: [phone]) 945-338602-17-2025 Instructions* Patient Instructions* Julissa Coulter APRN.[employer] ST[employer] S[employer]TER - 08/06/2024 5:29 PM EST ASSESSMENT/PLAN: 1. Acute cough - ICD9: 786.2, ICD10: R05.1 (primary diagnosis) - XR CHEST 2V FRONTAL/LAT IMPRESSION: No acute radiographic abnormality. [employer]: [employer] Transcribe Date/Time: Aug 06 2024 5:12P Dictated by : YAW KANG MD 2. Flu-like symptoms - ICD9: 780.99, ICD10: R68.89 - COVID & INFLUENZA A/B & RSV PCR, ROUTINE - outside of treatment window for Tamiflu 3. Sinus pressure - ICD9: 478.19, ICD10: J34.89 - patient is insistent that she needs an antibiotic for her sinus symptoms despite my attempts to educate her that this is a normal symptom with viral URI. - DOXYCYCLINE HYCLATE 100 MG CAPSULE - FLUTICASONE PROPIONATE 50 MCG/ACTUATION NASAL SPRAY,SUSPENSION - Follow-up with your PCP in 3-5 days if symptoms have not improved or sooner if symptoms worsen - Discussed red flags and need for immediate medical evaluation if any occur. - Discussed supportive care treatment with fluids, rest and analgesia. - Discussed expected course of illness Julissa Coulter APRN.ROYA Treatment for Viral Upper Respiratory Tract Infections Your body will kill off the virus by itself. Additionally, you can prime your body's immune system.This may help you get better more quickly. Drink lots of fluids Make sure you are eating well Get plenty of rest We do not have any medications that kill off these viruses. Antibiotics are used to treat bacterialinfections; however, they are not active against viral infections. There are some things that mighthelp you feel better, though. Vaporizers, humidifiers, hot showers, and hot fluids help open respiratory and sinus passages [place] Nasal [place] may offer relief of nasal and head congestion Hao's Vapor Rub may relieve congestion Tylenol and Advil help control fevers and headaches Salt water gargles help relieve sore throats Chloraceptic spray or throat lozenges may also help relieve sore throat symptoms Occasionally, viral infections turn into something more serious. You should see your doctor or return to the Urgent Care if: You have fevers for longer than five days You have fevers above 102 degrees You are still sick after 10 days You have shortness of breath or wheezing After several days you are getting worse rather than better documented in this encounterL[facility]02-17-2025 History of Present illness Narrative* Amanda Jovel RT(R) - 08/06/2024 5:20 PM EST Radiology Service Progress Note PATIENT NAME: Carlos Covarrubias DATE OF SERVICE: August 06, 2024 TIME: 5:03 PM PATIENT IDENTITY VERIFICATION COMPLETED USING TWO (2) IDENTIFIERS: Name and Date of confirmedby patient verbally. FALL SCREENING: Has the patient had 2 falls in the last year or 1 fall with injury or currently using an Ambulatory Assistive Device (Walker, Cane, Wheelchair, Crutches, etc.)? No PATIENT GENDER DATA: Assigned female at . status: : No status:NO. PATIENT RELEVANT IMPLANT DATA REVIEWED: Not Applicable PATIENT PRESENTS WITH AN IMPLANTABLE OR ATTACHED CLOSING MACHINE OPERATOR: No RADIOLOGY DEPARTMENT: General X-ray: Exam(s) Completed: Chest X-Ray PERIPHERAL IV DATA: Not applicable SIGNED BY: GERRY Maldonado) August 06, 2024 5:03 PM documented in this encounterLake[facility]02-17-2025 NoteHNO ID: [id number] Author: AMANDA JOVEL RT (R) Service: Radiology Author Type: Technologist Type: Progress Notes Filed: 08/06/2024 17:09 Note Text: Radiology Service Progress Note PATIENT NAME: Carlos Covarrubias DATE OF SERVICE: August 06, 2024 TIME: 5:03 PM PATIENT IDENTITY VERIFICATION COMPLETED USING TWO (2) IDENTIFIERS: Name and Date of confirmed by patient verbally. FALL SCREENING: Has the patient had 2 falls in the last year or 1 fall with injury or currently using an Ambulatory Assistive Device (Walker, Cane, Wheelchair, Crutches, etc.)? No PATIENT GENDER DATA: Assigned female at . status: : No status: NO. PATIENT RELEVANT IMPLANT DATA REVIEWED: Not Applicable PATIENT PRESENTS WITH AN IMPLANTABLE OR ATTACHED CLOSING MACHINE OPERATOR: No RADIOLOGY DEPARTMENT: General X-ray: Exam(s) Completed: Chest X-Ray PERIPHERAL IV DATA: Not applicable SIGNED BY: RT Erica(Dav) August 06, 2024 5:03 [facility]02-17-2025 [id number] (AGENT OF COVID-19) RNA: Not detected INFLUENZA A RNA: Not detected INFLUENZA B RNA: Not detected RESPIRATORY SYNCYTIAL VIRUS (RSV) RNA: Not detectedSelect Medical Specialty Hospital - AkronComment on above:Performed By: #### [id number] ####[facility] LABCLIA [id number] [place] [id number] [facility] [id number] NoteHNO ID: [id number] Author: JULISSA COULTER APRN.[employer]OTH ST[employer] SORTER Service: ? Author Type: Nurse Practitioner Type: Progress Notes Filed: 08/06/2024 17:32 Note Text: Subjective Cough Associated symptoms include headaches and shortness of breath. Pertinent negatives include no chest pain, no chills, no ear pain, no sore throat and no myalgias. Carlos Covarrubias is a 68 year old female who presents with cough, chest congestion, headache, sinus pressure for the past 4 days. Started with a slight sore throat which improved. She feels short of breath. States she feels like her head is going to explode when she coughs or bends over. She took ibuprofen at home for symptoms. Review of Systems Constitutional: Negative for chills, fever and malaise/fatigue. HENT: Positive for congestion. Negative for ear pain and sore throat. Respiratory: Positive for cough, sputum production and shortness of breath. Cardiovascular: Negative for chest pain. Gastrointestinal: Positive for nausea. Negative for diarrhea and vomiting. Musculoskeletal: Negative for myalgias. Neurological: Positive for headaches. BP 144/78 Pulse 81 Temp 37.3 ?C (99.1 ?F) (Tympanic) Resp 16 Wt 101 kg (222 lb 10.6 oz) SpO2 96% BMI 34.54 kg/m? 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 08/07/2011 Seborrheic Keratosis 10/23/2010 Skin tag 08/07/2011 Tobacco abuse 07/13/2013 Trigger finger b/l hands, has had surgeries Type II or unspecified type diabetes mellitus without mention of complication, not stated as uncontrolled Unspecified hereditary and idiopathic peripheral neuropathy PAST SURGICAL HISTORY Procedure Laterality Date CHOLECYSTECTOMY HX 1994 Cholecystectomy, laparoscopic COLONOSCOPY 02/19/2015 ESOPHAGOGASTRODUODENOSCOPY TRANSORAL DIAGNOSTIC 03/28/2013 EGD ESOPHAGOGASTRODUODENOSCOPY TRANSORAL DIAGNOSTIC 02/23/2017 EGD PAST SURGICAL HISTORY OF 1974 LEANDRO PAST SURGICAL HISTORY OF 1980 Bilateral salpingoophorectomy PAST SURGICAL HISTORY OF 1986 Lumbar laminectomy PAST SURGICAL HISTORY OF 2002- multiple right partial clavicle resection and first rib resection- septic arthritis PAST SURGICAL HISTORY OF 07/2016 back surgery Lumbar/ thoracic ALLERGIES Augmentin [Amoxicillin-Pot Clavulanate], Biaxin [Clarithromycin], Byetta [Exenatide], Glucophage [Metformin], Iodine, Latex, and Omnicef [Cefdinir] MEDICATIONS triamcinolone acetonide (KENALOG) 0.1 % cream Apply 1 application to affected area three times a day. Apply sparingly to area for rash/itching. gabapentin (NEURONTIN) 300 mg capsule Take 1 tablet by mouth in the morning and afternoon. Take 4 tablets at bedtime. gabapentin (NEURONTIN) 300 mg capsule Take 300mg by mouth in the morning and afternoon. Take 1200mg at bedtime. ondansetron orally disintegrating (ZOFRAN ODT) 4 mg disintegrating tablet Take 1 tablet by mouth every 8 hours as needed for nausea/vomiting. Blood-Glucose Meter monitoring kit Test blood sugar(s) 2 times daily. Glucose Meter of Choice - Kit - Dx: Type 2 DM - Uncontrolled E11.65 blood sugar diagnostic (BLOOD GLUCOSE TEST) test strip Test blood sugar(s) 2 times daily. Dx: Type 2 DM - Uncontrolled E11.65 Insulin: Yes omeprazole (PRILOSEC) 40 mg capsule Take 1 capsule by mouth two times a day. atorvastatin (LIPITOR) 40 mg tablet Take 1 tablet by mouth once daily. glimepiride (AMARYL) 2 mg tablet Take 1 tablet by mouth daily with breakfast. lisinopril (ZESTRIL) 20 mg tablet Take 1.5 tablets by mouth once daily. sertraline (ZOLOFT) 50 mg tablet Take 1 tablet by mouth once daily. traZODone (DESYREL) 100 mg tablet Take 2 tablets by mouth daily at bedtime. fluticasone (FLONASE) 50 mcg/actuation na (more content not included)... [facility]02-17-[facility] History of Present illness Narrative* Julissa Coulter, ANNELISE.CLOTH STOCK SORTER - 08/06/2024 4:50 PM EST Subjective Cough Associated symptoms include headaches and shortness of breath. Pertinent negatives include no chestpain, no chills, no ear pain, no sore throat and no myalgias. Carlos Covarrubias is a 68 year old female who presents with cough, chest congestion, headache, sinuspressure for the past 4 days. Started with a slight sore throat which improved. She feels short of breath. States she feels like her head is going to explode when she coughs or bends over. She took ibuprofen at home for symptoms. Review of Systems Constitutional: Negative for chills, fever and malaise/fatigue. HENT: Positive for congestion. Negative for ear pain and sore throat. Respiratory: Positive for cough, sputum production and shortness of breath. Cardiovascular: Negative for chest pain. Gastrointestinal: Positive for nausea. Negative for diarrhea and vomiting. Musculoskeletal: Negative for myalgias. Neurological: Positive for headaches. 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 08/07/2011 Seborrheic Keratosis 10/23/2010 Skin tag 08/07/2011 Tobacco abuse 07/13/2013 Trigger finger b/l hands, has had surgeries Type II or unspecified type diabetes mellitus without mention of complication, not stated as uncontrolled Unspecified hereditary and idiopathic peripheral neuropathy PAST SURGICAL HISTORY Procedure Laterality Date CHOLECYSTECTOMY HX 1994 Cholecystectomy, laparoscopic COLONOSCOPY 02/19/2015 ESOPHAGOGASTRODUODENOSCOPY TRANSORAL DIAGNOSTIC 03/28/2013 EGD ESOPHAGOGASTRODUODENOSCOPY TRANSORAL DIAGNOSTIC 02/23/2017 EGD PAST SURGICAL HISTORY OF 1974 LEANDRO PAST SURGICAL HISTORY OF 1980 Bilateral salpingoophorectomy PAST SURGICAL HISTORY OF 1986 Lumbar laminectomy PAST SURGICAL HISTORY OF 2002- multiple right partial clavicle resection and first rib resection- septic arthritis PAST SURGICAL HISTORY OF 07/2016 back surgery Lumbar/ thoracic ALLERGIES Augmentin [Amoxicillin-Pot Clavulanate], Biaxin [Clarithromycin], Byetta [Exenatide], Glucophage [Metformin], Iodine, Latex, and Omnicef [Cefdinir] MEDICATIONS triamcinolone acetonide (KENALOG) 0.1 % cream Apply 1 application to affected area three times a day. Apply sparingly to area for rash/itching. gabapentin (NEURONTIN) 300 mg capsule Take 1 tablet by mouth in the morning and afternoon. Take 4 tablets at bedtime. gabapentin (NEURONTIN) 300 mg capsule Take 300mg by mouth in the morning and afternoon. Take 1200mgat bedtime. ondansetron orally disintegrating (ZOFRAN ODT) 4 mg disintegrating tablet Take 1 tablet by mouth every 8 hours as needed for nausea/vomiting. Blood-Glucose Meter monitoring kit Test blood sugar(s) 2 times daily. Glucose Meter of Choice - Kit- Dx: Type 2 DM - Uncontrolled E11.65 blood sugar diagnostic (BLOOD GLUCOSE TEST) test strip Test blood sugar(s) 2 times daily. Dx: Type 2 DM - Uncontrolled E11.65 Insulin: Yes omeprazole (PRILOSEC) 40 mg capsule Take 1 capsule by mouth two times a day. atorvastatin (LIPITOR) 40 mg tablet Take 1 tablet by mouth once daily. glimepiride (AMARYL) 2 mg tablet Take 1 tablet by mouth daily with breakfast. lisinopril (ZESTRIL) 20 mg tablet Take 1.5 tablets by mouth once daily. sertraline (ZOLOFT) 50 mg tablet Take 1 tablet by mouth once daily. traZODone (DESYREL) 100 mg tablet Take 2 tablets by mouth daily at bedtime. fluticasone (FLONASE) 50 mcg/actuation nasal spray Use 2 Sprays in each nostril once daily. Rinse mouth after use. Insulin Syringe-Needle U-100 (BD INSULIN SYRINGE UF) 0.5 mL 30 gauge x 1/2" inject with insulin Four times a day with each meal and at bedtime as directed blood sugar diagnostic (BLOOD GLUCOSE TEST) test strip Test blood sugar(s) 2 times daily. Dx: Type 2 DM - Uncontrolled E11.65 Insulin: Yes ACCU-CHEK GUIDE GLUCOSE METER USE DIRECTED Blood-Glucose Meter monitoring kit Glucose Meter of Choice - Kit - Dx: Type 2 DM - Uncontrolled E11.65 insulin regular, human (NOVOLIN R REGULAR U-100 INSULN INJECTION) by INJECTION(UNSPECIFIED PARENTERAL ROUTES) route. 34 units in the Am insulin NPH injection (HumuLIN N,NovoLIN N) 35 units in the Am 45 units in the PM Lancets lancets Test blood sugar(s) BID times daily. Dx: Type 2 DM - Uncontrolled . Insulin: Yes aspirin, enteric coated (ECOTRIN LOW STRENGTH) 81 mg EC tablet Take 1 tablet by mouth once daily. FAMILY HISTORY Problem Relation Age of Onset Diabetes Mother Stroke Mother Coronary Artery Disease Sister Early 40's with finding of ASCVD Coronary Artery Disease Brother 2 brothers diagnosed in their 60's Cancer Brother One brother with brain cancer and another one with tumors "all over his body" Coronary Artery Disease Father ASCVD in his 80's Coronary Artery Disease Brother Cancer Brother Social History Tobacco Use Smoking status: Former Current packs/day: 0.00 Average packs/day: 0.5 packs/day for 51.4 years (25.7 ttl pk-yrs) Types: Cigarettes Start date: 03/29/1967 Quit date: 08/18/2018 Years since quittin.9 Smokeless tobacco: Never Vaping Use Vaping status: Never Used Substance Use Topics Alcohol use: No Drug use: No Objective Physical Exam Vitals and nursing note reviewed. Constitutional: Appearance: Normal appearance. HENT: Right Ear: Tympanic membrane, ear canal and external ear normal. Left Ear: Tympanic membrane, ear canal and external ear normal. Nose: Congestion and rhinorrhea present. Mouth/Throat: Mouth: Mucous membranes are moist. Pharynx: Oropharynx is clear. Uvula midline. No oropharyngeal exudate or posterior oropharyngeal erythema. Cardiovascular: Rate and Rhythm: Normal rate and regular rhythm. Heart sounds: Normal heart sounds. Pulmonary: Effort: Pulmonary effort is normal. No respiratory distress. Breath sounds: Normal breath sounds. No wheezing or rales. Musculoskeletal: Cervical back: Neck supple. Lymphadenopathy: Cervical: No cervical adenopathy. Skin: General: Skin is warm and dry. Findings: No erythema or rash. Neurological: Mental Status: She is alert. ASSESSMENT/PLAN: 1. Acute cough - ICD9: 786.2, ICD10: R05.1 (primary diagnosis) - XR CHEST 2V FRONTAL/LAT IMPRESSION: No acute radiographic abnormality. [employer]: [employer] Transcribe Date/Time: Aug 06 2024 5:12P Dictated by : YAW KANG MD 2. Flu-like symptoms - ICD9: 780.99, ICD10: R68.89 - COVID & INFLUENZA A/B & RSV PCR, ROUTINE - outside of treatment window for Tamiflu 3. Sinus pressure - ICD9: 478.19, ICD10: J34.89 - patient is insistent that she needs an antibiotic for her sinus symptoms despite my attempts to educate her that this is a normal symptom with viral URI. - DOXYCYCLINE HYCLATE 100 MG CAPSULE - FLUTICASONE PROPIONATE 50 MCG/ACTUATION NASAL SPRAY,SUSPENSION - Follow-up with your PCP in 3-5 days if symptoms have not improved or sooner if symptoms worsen - Discussed red flags and need for immediate medical evaluation if any occur. - Discussed supportive care treatment with fluids, rest and analgesia. - Discussed expected course of illness Julissa Coulter APRN.CLOTH STOCK SORTER documented in this encounterL[facility]02-[facility]-2025 Instructions* Patient Instructions* Elizabeth De Paz APRN.CLOTH STOCK SORTER - 07/31/2024 5:40 PM EST Benadryl 25 mg twice a day Zyrtec 10 mg By mouth twice a day until gone - up to a week. Triamcinolone cream as ordered 2-3 times a day as needed - Decrease use of soap, especially those containing coloring or perfumes. -Avoid fabric softener and/or dryer sheets. -Moisturize daily with Cetaphil, Cere've, vaniply, or vaseline in tubs -Use mild soap such as dove white or dove for sensitive skin -Use steroid creams for severe areas only and DO NOT use for longer then 2 weeks. -DO NOT use steroid creams on face or in genital area. -Educated patient on side effects of medications. -Follow up with engineering production worker or PCP if rash is worsening with treatment over the next 24-48 hrs orif any new symptoms. documented in this encounterL[facility]25 NoteHNO ID: [id number] Author: ELIZABETH DE PAZ APRN.CNP Service: ? Author Type: Nurse Practitioner Type: Progress Notes Filed: 07/31/2024 18:02 Note Text: Subjective The history is provided by the patient. No book agent was used. HPI Carlos Covarrubias is a 68 year old female who presents today for CC of itching rash on bilateral upper legs this started 7 days ago. The patients reports no new exposures, no recent contact with unusual or new material, no recent change in detergents, soap, or shampoo, no other family members with the same rash, and no new medications. The rash is discribed as Erythema, slightly raised Past treatments - hydrocortisone cream without relief. Does the patient have a personal history of: Seasonal allergies: no Recent travel: no Recent infections: no Beginning a new medication: no Symptoms are triggered by: nothing Denies any - appetite change, weight change, fever, chills, malaise, and fatigue BP 128/84 Pulse 70 Temp 36.4 ?C (97.5 ?F) (Tympanic) Resp 16 Wt 100.5 kg (221 lb 9 oz) SpO2 98% BMI 34.37 kg/m? Social History Tobacco Use Smoking status: Former Current packs/day: 0.00 Average packs/day: 0.5 packs/day for 51.4 years (25.7 ttl pk-yrs) Types: Cigarettes Start date: 03/29/1967 Quit date: 08/18/2018 Years since quittin.9 Smokeless tobacco: Never Vaping Use Vaping status: Never Used Substance Use Topics Alcohol use: No Drug use: No PAST MEDICAL HISTORY Diagnosis Date ASCVD (arteriosclerotic cardiovascular disease) Atherosclerosis of left carotid artery 06/2013 Atherosclerosis of right carotid artery 06/2013 DDD (degenerative disc disease), cervical chronic neck pain Depressive disorder, not elsewhere classified Esophageal reflux 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 08/07/2011 Seborrheic Keratosis 10/23/2010 Skin tag 08/07/2011 Tobacco abuse 07/13/2013 Trigger finger b/l hands, has had surgeries Type II or unspecified type diabetes mellitus without mention of complication, not stated as uncontrolled Unspecified hereditary and idiopathic peripheral neuropathy I have confirmed and edited as necessary, the [facility] Review of Systems Constitutional: Negative for chills and fever. Musculoskeletal: Negative for joint pain and myalgias. Skin: Positive for itching and rash. All other systems reviewed and are negative. Objective Physical Exam Vitals and nursing note reviewed. Pulmonary: Effort: Pulmonary effort is normal. Skin: General: Skin is warm and dry. Findings: Erythema and rash present. Rash is macular. Comments: Skin: puritic circumscribed raised erythematous plaques with central clearing on marked areas Neurological: Mental Status: She is alert and oriented to person, place, and time. Psychiatric: Mood and Affect: Affect normal. ASSESSMENT/PLAN: 1. Rash - ICD9: 782.1, ICD10: R21 Appears to be urticarial Triamcinolone Zyrtec 10 mg twice a day Benadryl Mild soap, emollient cream Diagnosis and treatment plan were discussed and questions were answered to the patient's satisfaction. Pt acknowledged understanding of concepts and follow up plan. Specific signs and symptoms that would indicate the need for higher level of care were discussed in detail warranting prompt ER evaluation. Elizabeth De Paz APRN.[facility]02-11-2025 History of Present illness Narrative* Elizabeth De Paz APRN.CLOTH STOCK SORTER - 07/31/2024 5:37 PM EST Images from the original note were not included. Subjective The history is provided by the patient. No book agent was used. HPI Carlos Covarrubias is a 68 year old female who presents today for CC of itching rash on bilateralupper legs this started 7 days ago. The patients reports no new exposures, no recent contact with unusual or new material, no recent change in detergents, soap, or shampoo, no other family members with the same rash, and no new medications. The rash is discribed as Erythema, slightly raised Past treatments - hydrocortisone cream without relief. Does the patient have a personal history of: Seasonal allergies: no Recent travel: no Recent infections: no Beginning a new medication: no Symptoms are triggered by: nothing Denies any - appetite change, weight change, fever, chills, malaise, and fatigue BP 128/84 Pulse 70 Temp 36.4 C (97.5 F) (Tympanic) Resp 16 Wt 100.5 kg (221 lb 9 oz) KgI163% BMI 34.37 kg/m Social History Tobacco Use Smoking status: Former Current packs/day: 0.00 Average packs/day: 0.5 packs/day for 51.4 years (25.7 ttl pk-yrs) Types: Cigarettes Start date: 03/29/1967 Quit date: 08/18/2018 Years since quittin.9 Smokeless tobacco: Never Vaping Use Vaping status: Never Used Substance Use Topics Alcohol use: No Drug use: No PAST MEDICAL HISTORY Diagnosis Date ASCVD (arteriosclerotic cardiovascular disease) Atherosclerosis of left carotid artery 06/2013 Atherosclerosis of right carotid artery 06/2013 DDD (degenerative disc disease), cervical chronic neck pain Depressive disorder, not elsewhere classified Esophageal reflux 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 08/07/2011 Seborrheic Keratosis 10/23/2010 Skin tag 08/07/2011 Tobacco abuse 07/13/2013 Trigger finger b/l hands, has had surgeries Type II or unspecified type diabetes mellitus without mention of complication, not stated as uncontrolled Unspecified hereditary and idiopathic peripheral neuropathy I have confirmed and edited as necessary, the [facility] Review of Systems Constitutional: Negative for chills and fever. Musculoskeletal: Negative for joint pain and myalgias. Skin: Positive for itching and rash. All other systems reviewed and are negative. Objective Physical Exam Vitals and nursing note reviewed. Pulmonary: Effort: Pulmonary effort is normal. Skin: General: Skin is warm and dry. Findings: Erythema and rash present. Rash is macular. Comments: Skin: puritic circumscribed raised erythematous plaques with central clearing on marked areas Neurological: Mental Status: She is alert and oriented to person, place, and time. Psychiatric: Mood and Affect: Affect normal. ASSESSMENT/PLAN: 1. Rash - ICD9: 782.1, ICD10: R21 Appears to be urticarial Triamcinolone Zyrtec 10 mg twice a day Benadryl Mild soap, emollient cream Diagnosis and treatment plan were discussed and questions were answered to the patient's satisfaction. Pt acknowledged understanding of concepts and follow up plan. Specific signs and symptoms that would indicate the need for higher level of care were discussed indetail warranting prompt ER evaluation. Elizabeth De Paz APRN.ROYA documented in this encounterL[facility]25 Telephone encounter Note * Telephone Encounter - Sonal Payne LPN - 07/31/2024 3:41 PM EST Carlos is calling in for an appointment, has rash that itches, perez on bilateral legs, she has tried hydrocortisone cream with no relief, taken Benadryl, get worse toward evening. Patient is going [facility] to be seen. Sonal Payne LPN [facility]02-11-2025 Miscellaneous Notes* Telephone Encounter - Sonal Payne LPN - 07/31/2024 3:41 PM EST Carlos is calling in for an appointment, has rash that itches, perez on bilateral legs, she has tried hydrocortisone cream with no relief, taken Benadryl, get worse toward evening. Patient is going [facility] today to be seen. Sonal Payne LPN documented in this encounterL[facility]02-07-2025 Telephone encounter Note * Telephone Encounter - Mehreen Luna LPN - 07/27/2024 9:12 AM EST Pt. informed [facility] Miscellaneous Notes* Telephone Encounter - Mehreen Connell LPN - 07/27/2024 9:12 AM EST Pt. informed * Telephone Encounter - Alysha Sol APRN.CNP - 07/27/2024 7:10 AM EST The following approved medication requests have been transmitted electronically. Requested Prescriptions Signed Prescriptions Disp Refills gabapentin (NEURONTIN) 300 mg capsule 24 capsule 0 Sig: Take 1 tablet by mouth in the morning and afternoon. Take 4 tablets at bedtime. Authorizing Provider: ALYSHA SOL APRN.CNP * Telephone Encounter - Cathleen Hemphill RN - 07/26/2024 4:43 PM EST Patient states her gabapentin prescription will not be delivered to her until 07/29 or 07/30/24 and she is out of the medication. This nurse contacted [facility] delivery and verified this. Patient asking if provider can send short term supply prescription to [facility]. 4-day prescription pended for review. Please call patient with update. Cathleen Hemphill RN documented in this encounterL[facility]02-07-2025 Telephone encounter Note * Telephone Encounter - Alysha Sol APRN.CNP - 07/27/2024 7:10 AM EST The following approved medication requests have been transmitted electronically. Requested Prescriptions Signed Prescriptions Disp Refills gabapentin (NEURONTIN) 300 mg capsule 24 capsule 0 Sig: Take 1 tablet by mouth in the morning and afternoon. Take 4 tablets at bedtime. Authorizing Provider: ALYSHA SOL APRN.CNP [facility]02-06-[facility] Telephone encounter Note* Telephone Encounter - Cathleen Hemphill RN - 07/26/2024 4:43 PM EST Patient states her gabapentin prescription will not be delivered to her until 07/29 or 07/30/24 and she is out of the medication. This nurse contacted [facility] delivery and verified this. Patient asking if provider can send short term supply prescription to [facility]. 4-day prescription pended for review. Please call patient with update. Cathleen Hemphill RN [facility]02-03-2025 Telephone encounter Note* Telephone Encounter - Elba Teran RN - 07/23/2024 2:06 PM EST The patient has been identified by name and date of : Yes Caregiver verified no other encounters exist for this prescription request: Yes Caregiver confirmed with patient/requestor that no other refills are due, in the near future, with this provider at this time: Yes The last office visit in the department: 06/04/2024 Does the patient have a future office visit with this provider/department: No Requested Prescriptions Pending Prescriptions Disp Refills gabapentin (NEURONTIN) 300 mg capsule 180 capsule 1 Sig: Take 300mg by mouth in the morning and afternoon. Take 1200mg at bedtime. Elba Teran RN July 23, 2024 2:06 PM [facility]02-03-2025 Miscellaneous Notes* Telephone Encounter - Elba Teran RN - 07/23/2024 2:06 PM EST The patient has been identified by name and date of : Yes Caregiver verified no other encounters exist for this prescription request: Yes Caregiver confirmed with patient/requestor that no other refills are due, in the near future, with this provider at this time: Yes The last office visit in the department: 06/04/2024 Does the patient have a future office visit with this provider/department: No Requested Prescriptions Pending Prescriptions Disp Refills gabapentin (NEURONTIN) 300 mg capsule 180 capsule 1 Sig: Take 300mg by mouth in the morning and afternoon. Take 1200mg at bedtime. Elba Teran RN July 23, 2024 2:06 PM documented in this encounterLake[facility]12-18-2024 Telephone encounter Note * Telephone Encounter - Taisa Arias LPN - 06/06/2024 10:33 AM EST Spoke with pt gave information provided. Pt voices understanding. [facility]12-18-[facility] Miscellaneous Notes* Telephone Encounter - Tasia Arias LPN - 06/06/2024 10:33 AM EST Spoke with pt gave information provided. Pt voices understanding. * Telephone Encounter - Alysha Sol APRN.CNP - 06/06/2024 7:25 AM EST Please call patient and let her know that US and diag mammogram show area of concern to be a benignlipoma. A lipoma is just a lump of fatty tissue that grows under the skin. These are benign and we normally do not do anything about them unless it is becoming bothersome or painful (then we can sendto general surgery for removal). Thank you, Alysha Sol APRN.[employer] STOCK SORTER documented in this encounterLake[facility]12-18-2024 Telephone encounter Note * Telephone Encounter - Alysha Sol APRN.CNP - 06/06/2024 7:25 AM EST Please call patient and let her know that US and diag mammogram show area of concern to be a benignlipoma. A lipoma is just a lump of fatty tissue that grows under the skin. These are benign and we normally do not do anything about them unless it is becoming bothersome or painful (then we can sendto general surgery for removal). Thank you, Alysha Sol APRN.[employer] STOCK SORTER [facility]12-17-2024 History of Present illness Narrative* Kuzmik, Ni, RDMS - 06/05/2024 8:30 AM EST Radiology Service Progress Note PATIENT NAME: Carlos Covarrubias DATE OF SERVICE: June 05, 2024 TIME: 1:23 PM PATIENT IDENTITY VERIFICATION COMPLETED USING TWO (2) IDENTIFIERS: Name and Date of confirmedby patient verbally. FALL SCREENING: Has the patient had 2 falls in the last year or 1 fall with injury or currently using an Ambulatory Assistive Device (Walker, Cane, Wheelchair, Crutches, etc.)? No PATIENT GENDER DATA: Female. status: : No status: NO. PATIENT RELEVANT IMPLANT DATA REVIEWED: Not Applicable PATIENT PRESENTS WITH AN IMPLANTABLE OR ATTACHED CLOSING MACHINE OPERATOR: No RADIOLOGY DEPARTMENT: Ultrasound PERIPHERAL IV DATA: Not applicable SIGNED BY: Ni Paz RDMS Sivan June 05, 2024 1:23 PM documented in this encounterLakehealth [facility]12-17-2024 NoteHNO ID: [id number] Author: NI PAZ RDMS Service: ? Author Type: Artificial Flowers Supervisor Type: Progress Notes Filed: 06/05/2024 13:24 Note Text: Radiology Service Progress Note PATIENT NAME: Carlos Covarrubias DATE OF SERVICE: June 05, 2024 TIME: 1:23 PM PATIENT IDENTITY VERIFICATION COMPLETED USING TWO (2) IDENTIFIERS: Name and Date of confirmed by patient verbally. FALL SCREENING: Has the patient had 2 falls in the last year or 1 fall with injury or currently using an Ambulatory Assistive Device (Walker, Cane, Wheelchair, Crutches, etc.)? No PATIENT GENDER DATA: Female. status: : No status: NO. PATIENT RELEVANT IMPLANT DATA REVIEWED: Not Applicable PATIENT PRESENTS WITH AN IMPLANTABLE OR ATTACHED CLOSING MACHINE OPERATOR: No RADIOLOGY DEPARTMENT: Ultrasound PERIPHERAL IV DATA: Not applicable SIGNED BY: Ni Paz RDMS Sivan June 05, 2024 1:23 [facility]12-17-2024 History of Present illness Narrative* Stephanie Cordon Mammo Tech - 06/05/2024 8:00 AM EST Radiology Service Progress Note PATIENT NAME: Carlos Covarrubias DATE OF SERVICE: June 05, 2024 TIME: 9:52 AM PATIENT IDENTITY VERIFICATION COMPLETED USING TWO (2) IDENTIFIERS: Name and Date of confirmedby patient verbally. FALL SCREENING: Has the patient had 2 falls in the last year or 1 fall with injury or currently using an Ambulatory Assistive Device (Walker, Cane, Wheelchair, Crutches, etc.)? No PATIENT GENDER DATA: Female. status: : No status: NO. PATIENT RELEVANT IMPLANT DATA REVIEWED: Not Applicable PATIENT PRESENTS WITH AN IMPLANTABLE OR ATTACHED CLOSING MACHINE OPERATOR: No RADIOLOGY DEPARTMENT: Mammography PERIPHERAL IV DATA: Not applicable SIGNED BY: Ronal Rodríguez June 05, 2024 9:52 AM documented in this encounterLakehealth [facility] Center12-17-2024 NoteHNO ID: [id number] Author: STEPHANIE CORDON Mammo Tech Service: ? Author Type: Casino Gaming Worker Type: Progress Notes Filed: 06/05/2024 09:53 Note Text: Radiology Service Progress Note PATIENT NAME: Carlos Covarrubias DATE OF SERVICE: June 05, 2024 TIME: 9:52 AM PATIENT IDENTITY VERIFICATION COMPLETED USING TWO (2) IDENTIFIERS: Name and Date of confirmed by patient verbally. FALL SCREENING: Has the patient had 2 falls in the last year or 1 fall with injury or currently using an Ambulatory Assistive Device (Walker, Cane, Wheelchair, Crutches, etc.)? No PATIENT GENDER DATA: Female. status: : No status: NO. PATIENT RELEVANT IMPLANT DATA REVIEWED: Not Applicable PATIENT PRESENTS WITH AN IMPLANTABLE OR ATTACHED CLOSING MACHINE OPERATOR: No RADIOLOGY DEPARTMENT: Mammography PERIPHERAL IV DATA: Not applicable SIGNED BY: Ronal Rodríguez June 05, 2024 9:52 [facility]12-16-2024 History of Present illness Narrative* Alysha Sol APRN.[employer] ST[employer] SORTER - 06/04/2024 12:40 PM EST Chief Complaint Patient presents with: lump on back side of auxillia HPI Carlos Covarrubias is a 68 year old female who presents here today for Above Complaints. Carlos is an established patient of Dr. Villa DO. Concerns today... Per nurse triage from 06/01, Tuesday: Patient calls for lump to posterior left axillary. Nurse triage recommends see provider within 3 days. Scheduled for Tuesday06/04/2024 per time patient is able to come in. Care advice reviewed with verbalized understanding. Reason for Disposition [1] Small swelling or lump AND [2] unexplained AND [3] present > 1 week Answer Assessment - Initial Assessment Questions 1. APPEARANCE of SWELLING: Patient reports a lump behind left axillary the size of a golf ball, skin color, no pain, itch. Afebrile. 2. SIZE: Golf ball 3. LOCATION: Posterior to left axillary 4. ONSET: Patient reports several weeks 5. COLOR: Skin color 6. PAIN:- NONE (0): No pain. 7. ITCH: None 8. CAUSE: Patient not certain. Thinks maybe she noticed it shortly after last round of immunizations. 9 OTHER SYMPTOMS: Afebrile" In office today... Pt reports noticing a lump to L axilla and outer portion of breast about 1 month ago. Pt did have COVID and flu shot about 1.5 months ago (one shot in each arm, unknown which one was which). No pain,redness, warmth, or fevers. Pt unsure if she had mammogram screening this past year or not. No other concerns or complaints. Past medical history, appointments, medications, allergies reviewed. 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 08/07/2011 Seborrheic Keratosis 10/23/2010 Skin tag 08/07/2011 Tobacco abuse 07/13/2013 Trigger finger b/l hands, has had surgeries Type II or unspecified type diabetes mellitus without mention of complication, not stated as uncontrolled Unspecified hereditary and idiopathic peripheral neuropathy Previous Surgical History PAST SURGICAL HISTORY Procedure Laterality Date CHOLECYSTECTOMY HX 1994 Cholecystectomy, laparoscopic COLONOSCOPY 02/19/2015 ESOPHAGOGASTRODUODENOSCOPY TRANSORAL DIAGNOSTIC 03/28/2013 EGD ESOPHAGOGASTRODUODENOSCOPY TRANSORAL DIAGNOSTIC 02/23/2017 EGD PAST SURGICAL HISTORY OF 1974 LEANDRO PAST SURGICAL HISTORY OF 1980 Bilateral salpingoophorectomy PAST SURGICAL HISTORY OF 1986 Lumbar laminectomy PAST SURGICAL HISTORY OF 2002- multiple right partial clavicle resection and first rib resection- septic arthritis PAST SURGICAL HISTORY OF 07/2016 back surgery Lumbar/ thoracic Family History FAMILY HISTORY Problem Relation Age of Onset Diabetes Mother Stroke Mother Coronary Artery Disease Sister Early 40's with finding of ASCVD Coronary Artery Disease Brother 2 brothers diagnosed in their 60's Cancer Brother One brother with brain cancer and another one with tumors "all over his body" Coronary Artery Disease Father ASCVD in his 80's Coronary Artery Disease Brother Cancer Brother Patient Allergies ALLERGIES Allergen Reactions Augmentin [Amoxicil* GI Upset Nausea, vomiting Biaxin [Clarithromy* GI Upset Metallic taste; can tolerate Zpak Byetta [Exenatide] Intolerance GI upset Glucophage [Metform* Intolerance GI upset Iodine Swelling myleogram dye Latex Unknown Omnicef [Cefdinir] GI Upset Nausea, vomiting Current Medications Current Outpatient Medications on File Prior to Visit Medication Sig gabapentin (NEURONTIN) 300 mg capsule Take 300mg by mouth in the morning and afternoon. Take 1200mgat bedtime. gabapentin (NEURONTIN) 300 mg capsule Take 1 tablet by mouth in the morning and afternoon. Take 4 tablets at bedtime. ondansetron orally disintegrating (ZOFRAN ODT) 4 mg disintegrating tablet Take 1 tablet by mouth every 8 hours as needed for nausea/vomiting. Blood-Glucose Meter monitoring kit Test blood sugar(s) 2 times daily. Glucose Meter of Choice - Kit- Dx: Type 2 DM - Uncontrolled . blood sugar diagnostic (BLOOD GLUCOSE TEST) test strip Test blood sugar(s) 2 times daily. Dx: Type 2 DM - Uncontrolled Insulin: Yes omeprazole (PRILOSEC) 40 mg capsule Take 1 capsule by mouth two times a day. atorvastatin (LIPITOR) 40 mg tablet Take 1 tablet by mouth once daily. glimepiride (AMARYL) 2 mg tablet Take 1 tablet by mouth daily with breakfast. lisinopril (ZESTRIL) 20 mg tablet Take 1.5 tablets by mouth once daily. sertraline (ZOLOFT) 50 mg tablet Take 1 tablet by mouth once daily. traZODone (DESYREL) 100 mg tablet Take 2 tablets by mouth daily at bedtime. fluticasone (FLONASE) 50 mcg/actuation nasal spray Use 2 Sprays in each nostril once daily. Rinse mouth after use. Insulin Syringe-Needle U-100 (BD INSULIN SYRINGE UF) 0.5 mL 30 gauge x 1/2" inject with insulin Four times a day with each meal and at bedtime as directed blood sugar diagnostic (BLOOD GLUCOSE TEST) test strip Test blood sugar(s) 2 times daily. Dx: Type 2 DM - Uncontrolled Insulin: Yes ACCU-CHEK GUIDE GLUCOSE METER USE DIRECTED Blood-Glucose Meter monitoring kit Glucose Meter of Choice - Kit - Dx: Type 2 DM - Uncontrolled insulin regular, human (NOVOLIN R REGULAR U-100 INSULN INJECTION) by INJECTION(UNSPECIFIED PARENTERAL ROUTES) route. 34 units in the Am insulin NPH injection (HumuLIN N,NovoLIN N) 35 units in the Am 45 units in the PM Lancets lancets Test blood sugar(s) BID times daily. Dx: Type 2 DM - Uncontrolled Insulin: Yes aspirin, enteric coated (ECOTRIN LOW STRENGTH) 81 mg EC tablet Take 1 tablet by mouth once daily. No current facility-administered medications on file prior to visit. Social History Social History Tobacco Use Smoking status: Former Current packs/day: 0.00 Average packs/day: 0.5 packs/day for 51.4 years (25.7 ttl pk-yrs) Types: Cigarettes Start date: 03/29/1967 Quit date: 08/18/2018 Years since quittin.8 Smokeless tobacco: Never Vaping Use Vaping status: Never Used Substance Use Topics Alcohol use: No Drug use: No REVIEW OF SYSTEMS: as above Reviewed relevant PMHx, PSHx, Social Hx, current medications and allergies. Review of Symptoms REVIEW OF SYSTEMS See HPI. EXAM: BP 110/50 (BP Site: Left Arm, BP Position: Sitting, BP Cuff Size: Large Adult) Pulse 66 Resp 12 Wt 100.4 kg (221 lb 5.5 oz) SpO2 97% BMI 34.34 kg/m General Appearance: Well appearing, alert, in no acute distress, well-hydrated, well nourished.. Skin: Skin color, texture, turgor normal, no suspicious rashes or lesions. Breast: Positive findings: nodule/lump to L axilla tail. Health Maintenance List Diabetic Foot Exam due on 08/31/2023 BP Controlled (<130/80) due on 09/01/2023 Urine Albumin:Creatinine Ratio due on 03/04/2024 Mammogram Screening due on 10/03/2024 Lung Cancer Screening due on 10/02/2024 Dilated Retinal Exam due on 10/02/2024 HbA1C due on 10/15/2024 Colorectal Cancer Screening due on 02/19/2025 Pneumococcal Vaccine: 50+(3 of 3 - PCV20 or PCV21) due on 03/01/2025 LDL Cholesterol due on 04/16/2025 Annual PCP Team Chronic Disease Visit due on 04/17/2025 DTaP,Tdap,Td Vaccine(2 - Td or Tdap) due on 05/19/2028 Bone Density Screening Completed Influenza Vaccine Completed RSV Vaccine Completed Hepatitis C Screening Completed Shingrix Vaccine Completed Covid-19 Vaccine Completed Advance Directive Discussion Discontinued ASSESSMENT/PLAN: 1. Mass of axillary tail of left breast - ICD9: 611.72, ICD10: N63.32 Likely reactive lymph node to recent COVID and flu shot in that arm. US breast (including axilla tail) to further investigate. No concerns for abscess or cellulitis. - US BREAST LTD LEFT RTO as needed if no improvement. Prescription instructions reviewed with patient as applicable. Potential red flag symptoms discussed with the patient. Reviewed appropriate action plan to take if red flag symptoms occur. Patient agreeable to treatment plan. Alysha Evans APRN.[employer]TER [address] [place] [address] documented in this encounterL[facility]12-16-[facility]24 NoteHNO ID: [id number] Author: ALYSHA SOL APRN.ROYA Service: ? Author Type: Nurse Practitioner Type: Progress Notes Filed: 06/04/2024 13:00 Note Text: Chief Complaint Patient presents with: lump on back side of auxillia HPI Carlos Covarrubias is a 68 year old female who presents here today for Above Complaints. Carlos is an established patient of Dr. Villa DO. Concerns today... Per nurse triage from 06/01, Tuesday: Patient calls for lump to posterior left axillary. Nurse triage recommends see provider within 3 days. Scheduled for Tuesday06/04/2024 per time patient is able to come in. Care advice reviewed with verbalized understanding. Reason for Disposition [1] Small swelling or lump AND [2] unexplained AND [3] present > 1 week Answer Assessment - Initial Assessment Questions 1. APPEARANCE of SWELLING: Patient reports a lump behind left axillary the size of a golf ball, skin color, no pain, itch. Afebrile. 2. SIZE: Golf ball 3. LOCATION: Posterior to left axillary 4. ONSET: Patient reports several weeks 5. COLOR: Skin color 6. PAIN:- NONE (0): No pain. 7. ITCH: None 8. CAUSE: Patient not certain. Thinks maybe she noticed it shortly after last round of immunizations. 9 OTHER SYMPTOMS: Afebrile" In office today... Pt reports noticing a lump to L axilla and outer portion of breast about 1 month ago. Pt did have COVID and flu shot about 1.5 months ago (one shot in each arm, unknown which one was which). No pain, redness, warmth, or fevers. Pt unsure if she had mammogram screening this past year or not. No other concerns or complaints. Past medical history, appointments, medications, allergies reviewed. 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 08/07/2011 Seborrheic Keratosis 10/23/2010 Skin tag 08/07/2011 Tobacco abuse 07/13/2013 Trigger finger b/l hands, has had surgeries Type II or unspecified type diabetes mellitus without mention of complication, not stated as uncontrolled Unspecified hereditary and idiopathic peripheral neuropathy Previous Surgical History PAST SURGICAL HISTORY Procedure Laterality Date CHOLECYSTECTOMY HX 1994 Cholecystectomy, laparoscopic COLONOSCOPY 02/19/2015 ESOPHAGOGASTRODUODENOSCOPY TRANSORAL DIAGNOSTIC 03/28/2013 EGD ESOPHAGOGASTRODUODENOSCOPY TRANSORAL DIAGNOSTIC 02/23/2017 EGD PAST SURGICAL HISTORY OF 1974 LEANDRO PAST SURGICAL HISTORY OF 1980 Bilateral salpingoophorectomy PAST SURGICAL HISTORY OF 1986 Lumbar laminectomy PAST SURGICAL HISTORY OF 2002- multiple right partial clavicle resection and first rib resection- septic arthritis PAST SURGICAL HISTORY OF 07/2016 back surgery Lumbar/ thoracic Family History FAMILY HISTORY Problem Relation Age of Onset Diabetes Mother Stroke Mother Coronary Artery Disease Sister Early 40's with finding of ASCVD Coronary Artery Disease Brother 2 brothers diagnosed in their 60's Cancer Brother One brother with brain cancer and another one with tumors "all over his body" Coronary Artery Disease Father ASCVD in his 80's Coronary Artery Disease Brother Cancer Brother Patient Allergies ALLERGIES Allergen Reactions Augmentin [Amoxicil* GI Upset Nausea, vomiting Biaxin [Clarithromy* GI Upset Metallic taste; can tolerate Zpak Byetta [Exenatide] Intolerance GI upset Glucophage [Metform* Intolerance GI upset Iodine Swelling myleogram dye Latex Unknown Omnicef [Cefdinir] GI Upset Nausea, vomiting Current Medications Current Outpatient Medications on File Prior to Visit Medication Sig gabapentin (NEURONTIN) 300 mg capsule Take 300mg by mouth in the morning and afternoon. Take 1200 (more content not included)...[facility] 06-01-2024 Telephone encounter Note* Telephone Encounter - Natalia Urbano RN - 06/01/2024 12:35 PM EST Patient calls for lump to posterior left axillary. Nurse triage recommends see provider within 3 days. Scheduled for Tuesday06/04/2024 per time patient is able to come in. Care advice reviewed with verbalized understanding. Reason for Disposition [1] Small swelling or lump AND [2] unexplained AND [3] present > 1 week Answer Assessment - Initial Assessment Questions 1. APPEARANCE of SWELLING: Patient reports a lump behind left axillary the size of a golf ball, skin color, no pain, itch. Afebrile. 2. SIZE: Golf ball 3. LOCATION: Posterior to left axillary 4. ONSET: Patient reports several weeks 5. COLOR: Skin color 6. PAIN:- NONE (0): No pain. 7. ITCH: None 8. CAUSE: Patient not certain. Thinks maybe she noticed it shortly after last round of immunizations. 9 OTHER SYMPTOMS: Afebrile Protocols used: Skin Lump or Localized [id number] [facility]12-13-[facility] Miscellaneous Notes* Telephone Encounter - Natalia Urbano RN - 06/01/2024 12:35 PM EST Patient calls for lump to posterior left axillary. Nurse triage recommends see provider within 3 days. Scheduled for Tuesday06/04/2024 per time patient is able to come in. Care advice reviewed with verbalized understanding. Reason for Disposition [1] Small swelling or lump AND [2] unexplained AND [3] present > 1 week Answer Assessment - Initial Assessment Questions 1. APPEARANCE of SWELLING: Patient reports a lump behind left axillary the size of a golf ball, skin color, no pain, itch. Afebrile. 2. SIZE: Golf ball 3. LOCATION: Posterior to left axillary 4. ONSET: Patient reports several weeks 5. COLOR: Skin color 6. PAIN:- NONE (0): No pain. 7. ITCH: None 8. CAUSE: Patient not certain. Thinks maybe she noticed it shortly after last round of immunizations. 9 OTHER SYMPTOMS: Afebrile Protocols used: Skin Lump or Localized [id number] documented in this encounterLake[facility]11-07-2024 Telephone encounter Note * Telephone Encounter - Talya Aburto LPN - 04/26/2024 4:04 PM EST Pt called in and reports she is out of Gabapentin. New prescriptions were sent to [facility] for short term on 04-25-24. Pt contacted [facility] and they told her they could not fill. I called and spoke with the Pharmacist Deshaun and he would not fill the short term. I called the pharmacist to check on this. Deshaun reports this is a high dose of Gabapentin and she would be willing to fill 7 days only. He reports not certain her insurance will cover. Talya Aburto LPN [facility]11-07-2024 Miscellaneous Notes* Telephone Encounter - Talya Aburto LPN - 04/26/2024 4:04 PM EST Pt called in and reports she is out of Gabapentin. New prescriptions were sent to [facility] for short term on 04-25-24. Pt contacted [facility] and they told her they could not fill. I called and spoke with the Pharmacist Deshaun and he would not fill the short term. I called the pharmacist to check on this. Deshaun reports this is a high dose of Gabapentin and she would be willing to fill 7 days only. He reports not certain her insurance will cover. Talya Aburto LPN documented in this encounterL[facility]11-07-2024 NoteHNO ID: [id number] Author: LILA GOLD APRN.[employer]TER Service: ? Author Type: Nurse Practitioner Type: Progress Notes Filed: 04/26/2024 12:54 Note Text: Subjective HPI HPI Carlos Covarrubias is a 68 year old female who presents today for CC of cough, congestion, sob. This started 4 days ago. Has tried otc medication for relief. Symptoms are worsened by nothing. Risk factors sick exposures. Hx of copd. 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 08/07/2011 Seborrheic Keratosis 10/23/2010 Skin tag 08/07/2011 Tobacco abuse 07/13/2013 Trigger finger b/l hands, has had surgeries Type II or unspecified type diabetes mellitus without mention of complication, not stated as uncontrolled Unspecified hereditary and idiopathic peripheral neuropathy PAST SURGICAL HISTORY Procedure Laterality Date CHOLECYSTECTOMY HX 1994 Cholecystectomy, laparoscopic COLONOSCOPY 02/19/2015 ESOPHAGOGASTRODUODENOSCOPY TRANSORAL DIAGNOSTIC 03/28/2013 EGD ESOPHAGOGASTRODUODENOSCOPY TRANSORAL DIAGNOSTIC 02/23/2017 EGD PAST SURGICAL HISTORY OF 1974 LEANDRO PAST SURGICAL HISTORY OF 1980 Bilateral salpingoophorectomy PAST SURGICAL HISTORY OF 1986 Lumbar laminectomy PAST SURGICAL HISTORY OF 2002- multiple right partial clavicle resection and first rib resection- septic arthritis PAST SURGICAL HISTORY OF 07/2016 back surgery Lumbar/ thoracic ALLERGIES Augmentin [Amoxicillin-Pot Clavulanate], Biaxin [Clarithromycin], Byetta [Exenatide], Glucophage [Metformin], Iodine, Latex, and Omnicef [Cefdinir] MEDICATIONS gabapentin (NEURONTIN) 300 mg capsule Take 300mg by mouth in the morning and afternoon. Take 1200mg at bedtime. gabapentin (NEURONTIN) 300 mg capsule Take 1 tablet by mouth in the morning and afternoon. Take 4 tablets at bedtime. ondansetron orally disintegrating (ZOFRAN ODT) 4 mg disintegrating tablet Take 1 tablet by mouth every 8 hours as needed for nausea/vomiting. Blood-Glucose Meter monitoring kit Test blood sugar(s) 2 times daily. Glucose Meter of Choice - Kit - Dx: Type 2 DM - Uncontrolled E11.65 blood sugar diagnostic (BLOOD GLUCOSE TEST) test strip Test blood sugar(s) 2 times daily. Dx: Type 2 DM - Uncontrolled E11.65 Insulin: Yes omeprazole (PRILOSEC) 40 mg capsule Take 1 capsule by mouth two times a day. atorvastatin (LIPITOR) 40 mg tablet Take 1 tablet by mouth once daily. glimepiride (AMARYL) 2 mg tablet Take 1 tablet by mouth daily with breakfast. lisinopril (ZESTRIL) 20 mg tablet Take 1.5 tablets by mouth once daily. sertraline (ZOLOFT) 50 mg tablet Take 1 tablet by mouth once daily. traZODone (DESYREL) 100 mg tablet Take 2 tablets by mouth daily at bedtime. fluticasone (FLONASE) 50 mcg/actuation nasal spray Use 2 Sprays in each nostril once daily. Rinse mouth after use. Insulin Syringe-Needle U-100 (BD INSULIN SYRINGE UF) 0.5 mL 30 gauge x 1/2" inject with insulin Four times a day with each meal and at bedtime as directed blood sugar diagnostic (BLOOD GLUCOSE TEST) test strip Test blood sugar(s) 2 times daily. Dx: Type 2 DM - Uncontrolled E11.65 Insulin: Yes ACCU-CHEK GUIDE GLUCOSE METER USE DIRECTED Blood-Glucose Meter monitoring kit Glucose Meter of Choice - Kit - Dx: Type 2 DM - Uncontrolled E11.65 insulin regular, human (NOVOLIN R REGULAR U-100 INSULN INJECTION) by INJECTION(UNSPECIFIED PARENTERAL ROUTES) route. 34 units in the Am insulin NPH injection (HumuLIN N,NovoLIN N) 35 units in the Am 45 units in the PM Lancets lancets Test blood sugar(s) BID times daily. Dx: Type 2 DM - Uncontrolled E11.65 Insulin: (more content not included)...[facility]11-07-[facility] History of Present illness Narrative* Lila Gold APRN.[employer]TER - 04/26/2024 12:53 PM EST Subjective HPI HPI Carlos Covarrubias is a 68 year old female who presents today for CC of cough, congestion, sob. This started 4 days ago. Has tried otc medication for relief. Symptoms are worsened by nothing. Risk factors sick exposures. Hx of copd. 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 08/07/2011 Seborrheic Keratosis 10/23/2010 Skin tag 08/07/2011 Tobacco abuse 07/13/2013 Trigger finger b/l hands, has had surgeries Type II or unspecified type diabetes mellitus without mention of complication, not stated as uncontrolled Unspecified hereditary and idiopathic peripheral neuropathy PAST SURGICAL HISTORY Procedure Laterality Date CHOLECYSTECTOMY HX 1994 Cholecystectomy, laparoscopic COLONOSCOPY 02/19/2015 ESOPHAGOGASTRODUODENOSCOPY TRANSORAL DIAGNOSTIC 03/28/2013 EGD ESOPHAGOGASTRODUODENOSCOPY TRANSORAL DIAGNOSTIC 02/23/2017 EGD PAST SURGICAL HISTORY OF 1974 LEANDRO PAST SURGICAL HISTORY OF 1980 Bilateral salpingoophorectomy PAST SURGICAL HISTORY OF 1986 Lumbar laminectomy PAST SURGICAL HISTORY OF 2002- multiple right partial clavicle resection and first rib resection- septic arthritis PAST SURGICAL HISTORY OF 07/2016 back surgery Lumbar/ thoracic ALLERGIES Augmentin [Amoxicillin-Pot Clavulanate], Biaxin [Clarithromycin], Byetta [Exenatide], Glucophage [Metformin], Iodine, Latex, and Omnicef [Cefdinir] MEDICATIONS gabapentin (NEURONTIN) 300 mg capsule Take 300mg by mouth in the morning and afternoon. Take 1200mgat bedtime. gabapentin (NEURONTIN) 300 mg capsule Take 1 tablet by mouth in the morning and afternoon. Take 4 tablets at bedtime. ondansetron orally disintegrating (ZOFRAN ODT) 4 mg disintegrating tablet Take 1 tablet by mouth every 8 hours as needed for nausea/vomiting. Blood-Glucose Meter monitoring kit Test blood sugar(s) 2 times daily. Glucose Meter of Choice - Kit- Dx: Type 2 DM - Uncontrolled E11.65 blood sugar diagnostic (BLOOD GLUCOSE TEST) test strip Test blood sugar(s) 2 times daily. Dx: Type 2 DM - Uncontrolled . Insulin: Yes omeprazole (PRILOSEC) 40 mg capsule Take 1 capsule by mouth two times a day. atorvastatin (LIPITOR) 40 mg tablet Take 1 tablet by mouth once daily. glimepiride (AMARYL) 2 mg tablet Take 1 tablet by mouth daily with breakfast. lisinopril (ZESTRIL) 20 mg tablet Take 1.5 tablets by mouth once daily. sertraline (ZOLOFT) 50 mg tablet Take 1 tablet by mouth once daily. traZODone (DESYREL) 100 mg tablet Take 2 tablets by mouth daily at bedtime. fluticasone (FLONASE) 50 mcg/actuation nasal spray Use 2 Sprays in each nostril once daily. Rinse mouth after use. Insulin Syringe-Needle U-100 (BD INSULIN SYRINGE UF) 0.5 mL 30 gauge x 1/2" inject with insulin Four times a day with each meal and at bedtime as directed blood sugar diagnostic (BLOOD GLUCOSE TEST) test strip Test blood sugar(s) 2 times daily. Dx: Type 2 DM - Uncontrolled Insulin: Yes ACCU-CHEK GUIDE GLUCOSE METER USE DIRECTED Blood-Glucose Meter monitoring kit Glucose Meter of Choice - Kit - Dx: Type 2 DM - Uncontrolled . insulin regular, human (NOVOLIN R REGULAR U-100 INSULN INJECTION) by INJECTION(UNSPECIFIED PARENTERAL ROUTES) route. 34 units in the Am insulin NPH injection (HumuLIN N,NovoLIN N) 35 units in the Am 45 units in the PM Lancets lancets Test blood sugar(s) BID times daily. Dx: Type 2 DM - Uncontrolled . Insulin: Yes aspirin, enteric coated (ECOTRIN LOW STRENGTH) 81 mg EC tablet Take 1 tablet by mouth once daily. doxycycline monohydrate 100 mg tablet Take 1 tablet by mouth two times a day for 7 days. FAMILY HISTORY Problem Relation Age of Onset Diabetes Mother Stroke Mother Coronary Artery Disease Sister Early 40's with finding of ASCVD Coronary Artery Disease Brother 2 brothers diagnosed in their 60's Cancer Brother One brother with brain cancer and another one with tumors "all over his body" Coronary Artery Disease Father ASCVD in his 80's Coronary Artery Disease Brother Cancer Brother Social History Tobacco Use Smoking status: Former Current packs/day: 0.00 Average packs/day: 0.5 packs/day for 51.4 years (25.7 ttl pk-yrs) Types: Cigarettes Start date: 03/29/1967 Quit date: 08/18/2018 Years since quittin.6 Smokeless tobacco: Never Vaping Use Vaping status: Never Used Substance Use Topics Alcohol use: No Drug use: No Review of Systems Constitutional: Negative for fever. HENT: Positive for congestion. Negative for ear pain, nosebleeds and sore throat. Respiratory: Positive for cough and sputum production. Negative for shortness of breath and wheezing. Cardiovascular: Negative for chest pain. Musculoskeletal: Negative for neck pain. Skin: Negative for itching and rash. Objective Blood pressure 156/75, pulse 85, temperature 36.9 C (98.4 F), resp. rate 22, weight 98.5 kg (217 lb2.5 oz), SpO2 97%. Physical Exam Constitutional: General: She is not in acute distress. Appearance: She is not toxic-appearing or diaphoretic. HENT: Head: Normocephalic and atraumatic. Cardiovascular: Rate and Rhythm: Normal rate and regular rhythm. Heart sounds: Normal heart sounds, S1 normal and S2 normal. Pulmonary: Effort: Pulmonary effort is normal. Breath sounds: Rhonchi (scattered bilat) present. No decreased breath sounds, wheezing or rales. Lymphadenopathy: Cervical: No cervical adenopathy. Right cervical: No superficial cervical adenopathy. Left cervical: No superficial cervical adenopathy. Neurological: Mental Status: She is alert and oriented to person, place, and time. Gait: Gait is intact. ASSESSMENT/PLAN: 1. Lower resp. tract infection - ICD9: 519.8, ICD10: J22 - Discussed supportive care - Limit exposure to smoke and other inhaled irritants - Discussed possible red flags and when to seek medical attention - Follow up in 3-5 days or sooner if no better or worse -If you experience chest pain/shortness of breath go to ER - DOXYCYCLINE MONOHYDRATE 100 MG TABLET Lila Gold APRN.CNP documented in this encounterLake[facility]11-06-[facility]24 Telephone encounter Note * Telephone Encounter - Jeanie Cortez APRN.CNP - 04/25/2024 9:56 AM EST I did order this on 04/17 with the increased number of pills, but I'll send it again. The following approved medication requests have been transmitted electronically. Requested Prescriptions Signed Prescriptions Disp Refills gabapentin (NEURONTIN) 300 mg capsule 180 capsule 1 Sig: Take 300mg by mouth in the morning and afternoon. Take 1200mg at bedtime. Authorizing Provider: JEANIE CORTEZ gabapentin (NEURONTIN) 300 mg capsule 84 capsule 0 Sig: Take 1 tablet by mouth in the morning and afternoon. Take 4 tablets at bedtime. Authorizing Provider: JEANIE CORTEZ APRN.CNP [facility]11-06-2024 Miscellaneous Notes* Telephone Encounter - Jeanie Cortez APRN.CNP - 04/25/2024 9:56 AM EST I did order this on 04/17 with the increased number of pills, but I'll send it again. The following approved medication requests have been transmitted electronically. Requested Prescriptions Signed Prescriptions Disp Refills gabapentin (NEURONTIN) 300 mg capsule 180 capsule 1 Sig: Take 300mg by mouth in the morning and afternoon. Take 1200mg at bedtime. Authorizing Provider: JEANIE CORTEZ gabapentin (NEURONTIN) 300 mg capsule 84 capsule 0 Sig: Take 1 tablet by mouth in the morning and afternoon. Take 4 tablets at bedtime. Authorizing Provider: JEANIE CORTEZ APRN.CNP * Telephone Encounter - Sri Ashley LPN - 04/25/2024 9:17 AM EST Patient calling to check status. She is out of medication. She needs 2 weeks supply of Gabapentin to be sent to [facility] also please. * Telephone Encounter - Sri Ashley LPN - 04/23/2024 2:54 PM EST Patient calling [facility] will not fill her Gabapentin rx needs amount of pills increased. Rx says 300 mg in the morning and afternoon and 1200 mg at bedtime. Unless LEGAL SUPPORT SPECIALIST wants to give her a 600 mg rx also to make the 1200 mg at bedtime? Patient will run out of pills in 7 days. Shehad given the [facility] pharmacy phone number [phone]. Please advise documented in this [facility]24 Telephone encounter Note * Telephone Encounter - Sri Ashley LPN - 04/25/2024 9:17 AM EST Patient calling to check status. She is out of medication. She needs 2 weeks supply of Gabapentin to be sent to [facility] also please. [facility]11-04-[facility] Telephone encounter Note* Telephone Encounter - Sri Ashley LPN - 04/23/2024 2:54 PM EST Patient calling [facility] pharmacy will not fill her Gabapentin rx needs amount of pills increased. Rx says 300 mg in the morning and afternoon and 1200 mg at bedtime. Unless LEGAL SUPPORT SPECIALIST wants to give her a 600 mg rx also to make the 1200 mg at bedtime? Patient will run out of pills in 7 days. [place] given the [facility] pharmacy phone number [phone]. Please advise [facility]10-29-[facility] Instructions* Patient Instructions* Jeanie Cortez APRN.ROYA - 04/17/2024 1:25 PM EDT Consider Remeron for restless legs. We may consider Lyrica instead of the gabapentin if it doesn't work, which is similar to the gabapentin that works for nerve pain. Check into getting a scooter with your insurance, let me know and we'll get the process starting. Schedule with Vito with PT for consideration for dry needling. Increase your gabapentin to 300mg in the morning and the afternoon. Increase to 1200mg at nighttime. documented in this encounterLake[facility]10-29-2024 NoteHNO ID: [id number] Author: JEANIE CORTEZ APRN.ROYA Service: ? Author Type: Nurse Practitioner Type: Progress Notes Filed: 04/17/2024 16:22 Note Text: Chief Complaint Patient presents with: Medication Follow-up: Neuropathy worse HPI Carlos Covarrubias is a 68 year old female who presents here today for Above Complaints. Neuropathy: Both legs-feel heavy and hurt quite a bit. Legs cramp a lot. Pain at nighttime is absolutely horrible. Perez and aches, stabbing pains through toes. Bottoms of her feet burn during the day but nothing like nighttime. Both hands and arms are going numb. Has chronic neck problems, pain. Doesn't want to try the pain management route. TENS unit for neck. Has helped quite a bit in the past and hasn't done it recently. Thinking she may need to get a scooter-type of device to help her get around. Would need it both in and out of her home. Once her feet start hurting, it is hard for her to get around much and care for herself, perform ADLs. Is unsteady in the shower, at the stove cooking. Has to do a lot of sitting both pain and safety-leigh. Would benefit for out of her home use so she could do things with her family and go out to enjoy things outside her home. Past medical history, appointments, medications, allergies reviewed. 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 08/07/2011 Seborrheic Keratosis 10/23/2010 Skin tag 08/07/2011 Tobacco abuse 07/13/2013 Trigger finger b/l hands, has had surgeries Type II or unspecified type diabetes mellitus without mention of complication, not stated as uncontrolled Unspecified hereditary and idiopathic peripheral neuropathy Previous Surgical History PAST SURGICAL HISTORY Procedure Laterality Date CHOLECYSTECTOMY HX 1994 Cholecystectomy, laparoscopic COLONOSCOPY 02/19/2015 ESOPHAGOGASTRODUODENOSCOPY TRANSORAL DIAGNOSTIC 03/28/2013 EGD ESOPHAGOGASTRODUODENOSCOPY TRANSORAL DIAGNOSTIC 02/23/2017 EGD PAST SURGICAL HISTORY OF 1974 LEANDRO PAST SURGICAL HISTORY OF 1980 Bilateral salpingoophorectomy PAST SURGICAL HISTORY OF 1986 Lumbar laminectomy PAST SURGICAL HISTORY OF 2002- multiple right partial clavicle resection and first rib resection- septic arthritis PAST SURGICAL HISTORY OF 07/2016 back surgery Lumbar/ thoracic Family History FAMILY HISTORY Problem Relation Age of Onset Diabetes Mother Stroke Mother Coronary Artery Disease Sister Early 40's with finding of ASCVD Coronary Artery Disease Brother 2 brothers diagnosed in their 60's Cancer Brother One brother with brain cancer and another one with tumors "all over his body" Coronary Artery Disease Father ASCVD in his 80's Coronary Artery Disease Brother Cancer Brother Patient Allergies ALLERGIES Allergen Reactions Augmentin [Amoxicil* GI Upset Nausea, vomiting Biaxin [Clarithromy* GI Upset Metallic taste; can tolerate Zpak Byetta [Exenatide] Intolerance GI upset Glucophage [Metform* Intolerance GI upset Iodine Swelling myleogram dye Latex Unknown Omnicef [Cefdinir] GI Upset Nausea, vomiting Current Medications Current Outpatient Medications on File Prior to Visit Medication Sig gabapentin (NEURONTIN) 300 mg capsule Take 3 capsules by mouth daily at bedtime for 90 days. Blood-Glucose Meter monitoring kit Test blood sugar(s) 2 times daily. Glucose Meter of Choice - Kit - Dx: Type 2 DM - Uncontrolled E11.65 blood sugar diagnostic (BLOOD GLUCOSE TEST) test strip Test blood sugar(s) 2 times daily. Dx: Type 2 DM - Uncontrolled E11.65 Insulin: Yes omeprazole (PRILOSEC) 40 mg capsule Take 1 capsule by mouth two times a day. atorvastatin (LIPITOR (more content not included)...[facility] 04-17-2024 History of Present illness Narrative* Jeanie Cortez APRN.CLOTH STOCK SORTER - 04/17/2024 1:03 PM EDT Chief Complaint Patient presents with: Medication Follow-up: Neuropathy worse HPI Carlos Covarrubias is a 68 year old female who presents here today for Above Complaints. Neuropathy: Both legs-feel heavy and hurt quite a bit. Legs cramp a lot. Pain at nighttime is absolutely horrible. Perez and aches, stabbing pains through toes. Bottoms of her feet burn during the day but nothing like nighttime. Both hands and arms are going numb. Has chronic neck problems, pain. Doesn't want to try the pain management route. TENS unit for neck. Has helped quite a bit in the past and hasn't done it recently. Thinking she may need to get a scooter-type of device to help her get around. Would need it both inand out of her home. Once her feet start hurting, it is hard for her to get around much and care for herself, perform ADLs. Is unsteady in the shower, at the stove cooking. Has to do a lot of sittingboth pain and safety-leigh. Would benefit for out of her home use so she could do things with her family and go out to enjoy things outside her home. Past medical history, appointments, medications, allergies reviewed. 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 08/07/2011 Seborrheic Keratosis 10/23/2010 Skin tag 08/07/2011 Tobacco abuse 07/13/2013 Trigger finger b/l hands, has had surgeries Type II or unspecified type diabetes mellitus without mention of complication, not stated as uncontrolled Unspecified hereditary and idiopathic peripheral neuropathy Previous Surgical History PAST SURGICAL HISTORY Procedure Laterality Date CHOLECYSTECTOMY HX 1994 Cholecystectomy, laparoscopic COLONOSCOPY 02/19/2015 ESOPHAGOGASTRODUODENOSCOPY TRANSORAL DIAGNOSTIC 03/28/2013 EGD ESOPHAGOGASTRODUODENOSCOPY TRANSORAL DIAGNOSTIC 02/23/2017 EGD PAST SURGICAL HISTORY OF 1974 LEANDRO PAST SURGICAL HISTORY OF 1980 Bilateral salpingoophorectomy PAST SURGICAL HISTORY OF 1986 Lumbar laminectomy PAST SURGICAL HISTORY OF 2002- multiple right partial clavicle resection and first rib resection- septic arthritis PAST SURGICAL HISTORY OF 07/2016 back surgery Lumbar/ thoracic Family History FAMILY HISTORY Problem Relation Age of Onset Diabetes Mother Stroke Mother Coronary Artery Disease Sister Early 40's with finding of ASCVD Coronary Artery Disease Brother 2 brothers diagnosed in their 60's Cancer Brother One brother with brain cancer and another one with tumors "all over his body" Coronary Artery Disease Father ASCVD in his 80's Coronary Artery Disease Brother Cancer Brother Patient Allergies ALLERGIES Allergen Reactions Augmentin [Amoxicil* GI Upset Nausea, vomiting Biaxin [Clarithromy* GI Upset Metallic taste; can tolerate Zpak Byetta [Exenatide] Intolerance GI upset Glucophage [Metform* Intolerance GI upset Iodine Swelling myleogram dye Latex Unknown Omnicef [Cefdinir] GI Upset Nausea, vomiting Current Medications Current Outpatient Medications on File Prior to Visit Medication Sig gabapentin (NEURONTIN) 300 mg capsule Take 3 capsules by mouth daily at bedtime for 90 days. Blood-Glucose Meter monitoring kit Test blood sugar(s) 2 times daily. Glucose Meter of Choice - Kit- Dx: Type 2 DM - Uncontrolled E11.65 blood sugar diagnostic (BLOOD GLUCOSE TEST) test strip Test blood sugar(s) 2 times daily. Dx: Type 2 DM - Uncontrolled E11.65 Insulin: Yes omeprazole (PRILOSEC) 40 mg capsule Take 1 capsule by mouth two times a day. atorvastatin (LIPITOR) 40 mg tablet Take 1 tablet by mouth once daily. glimepiride (AMARYL) 2 mg tablet Take 1 tablet by mouth daily with breakfast. lisinopril (ZESTRIL) 20 mg tablet Take 1.5 tablets by mouth once daily. sertraline (ZOLOFT) 50 mg tablet Take 1 tablet by mouth once daily. traZODone (DESYREL) 100 mg tablet Take 2 tablets by mouth daily at bedtime. fluticasone (FLONASE) 50 mcg/actuation nasal spray Use 2 Sprays in each nostril once daily. Rinse mouth after use. ondansetron orally disintegrating (ZOFRAN ODT) 4 mg disintegrating tablet Take 1 tablet by mouth every 8 hours as needed for nausea/vomiting. Insulin Syringe-Needle U-100 (BD INSULIN SYRINGE UF) 0.5 mL 30 gauge x 1/2" inject with insulin Four times a day with each meal and at bedtime as directed blood sugar diagnostic (BLOOD GLUCOSE TEST) test strip Test blood sugar(s) 2 times daily. Dx: Type 2 DM - Uncontrolled E11.65 Insulin: Yes ACCU-CHEK GUIDE GLUCOSE METER USE DIRECTED Blood-Glucose Meter monitoring kit Glucose Meter of Choice - Kit - Dx: Type 2 DM - Uncontrolled E11.65 insulin regular, human (NOVOLIN R REGULAR U-100 INSULN INJECTION) by INJECTION(UNSPECIFIED PARENTERAL ROUTES) route. 34 units in the Am insulin NPH injection (HumuLIN N,NovoLIN N) 35 units in the Am 45 units in the PM Lancets lancets Test blood sugar(s) BID times daily. Dx: Type 2 DM - Uncontrolled E11.65 Insulin: Yes aspirin, enteric coated (ECOTRIN LOW STRENGTH) 81 mg EC tablet Take 1 tablet by mouth once daily. albuterol HFA (PROVENTIL HFA, VENTOLIN HFA) 90 mcg/actuation inhaler Inhale 2 Puffs as instructed every 6 hours as needed for wheezing/shortness of breath. (Patient not taking: Reported on 09/15/2023) insulin NPH human isophane (NOVOLIN N SUBCUTANEOUS) Inject subcutaneously. (Patient not taking: Reported on 04/17/2024) nitroglycerin sublingual (NITROQUICK) 0.4 mg SL tablet Dissolve 1 tablet under the tongue as needed. for chest pain,every 5 min x3 (Patient not taking: Reported on 09/15/2023) insulin regular human (HUMULIN R REGULAR U-100 INSULN) 100 unit/mL injection Inject 24 Units subcutaneously daily with breakfast. (Patient not taking: Reported on 04/17/2024) No current facility-administered medications on file prior to visit. Social History Social History Tobacco Use Smoking status: Former Current packs/day: 0.00 Average packs/day: 0.5 packs/day for 51.4 years (25.7 ttl pk-yrs) Types: Cigarettes Start date: 03/29/1967 Quit date: 08/18/2018 Years since quittin.6 Smokeless tobacco: Never Vaping Use Vaping status: Never Used Substance Use Topics Alcohol use: No Drug use: No Review of Symptoms REVIEW OF SYSTEMS See HPI, otherwise negative EXAM: BP 120/64 (BP Site: Left Arm, BP Position: Sitting, BP Cuff Size: Regular Adult) Pulse 67 Resp 16 Wt 98.8 kg (217 lb 13 oz) SpO2 98% BMI 33.79 kg/m General Appearance: Well appearing, alert, in no acute distress, well-hydrated, well nourished.. Neck: Supple, no adenopathy; thyroid symmetric, normal size, no bruits. Back:pain and muscle tenderness to bilateral cervical spine and more significantly to right neck. Lungs: Lungs clear to auscultation. No wheezing, rhonchi, rales.. Heart: RRR without murmur, gallop, or rubs. No ectopy. Extremities: No deformities, edema, skin discoloration, clubbing or cyanosis. Good capillary refill. . Peripheral Pulses: Normal. Neurologic: altered gait, slightly unsteady. Reflexes normal and symmetric. Sensation grossly intact.. Psychiatric: pleasant, cooperative. Health Maintenance List Pneumococcal Vaccine: 65+(3 of 3 - PPSV23 or PCV20) due on 03/01/2021 Diabetic Foot Exam due on 08/31/2023 Influenza Vaccine(1) due on 02/19/2024 Covid-19 Vaccine( season) due on 02/19/2024 Urine Albumin:Creatinine Ratio due on 03/04/2024 Mammogram Screening due on 10/03/2024 Lung Cancer Screening due on 10/02/2024 Dilated Retinal Exam due on 10/02/2024 Annual PCP Team Chronic Disease Visit due on 10/02/2024 BP Controlled (<130/80) due on 10/02/2024 HbA1C due on 10/15/2024 Colorectal Cancer Screening due on 02/19/2025 LDL Cholesterol due on 04/16/2025 DTaP,Tdap,Td Vaccine(2 - Td or Tdap) due on 05/19/2028 Bone Density Screening Completed RSV Vaccine Completed Hepatitis C Screening Completed Shingrix Vaccine Completed Advance Directive Discussion Discontinued Data reviewed Previous records, office notes ASSESSMENT/PLAN: 1. DM (diabetes mellitus), type 2 with neurological complications (HCC) - ICD9: 250.60, ICD10: E11.49 (primary diagnosis) DM is controlled. Increase her gabapentin to 300mg morning and afternoon, 1200mg at bedtime. May consider switching to Lyrica and/or adding Remeron at next visit in 3-4 weeks. Recommend PT for her neck. This would likely help with ROM and strength, would like consideration for dry needling. She would benefit from a scooter for both in and outside her house to help improve her quality of life. ADLs are difficult, doesn't get around much due to the severe BLE pain. Would like to be about to get out of her house and do things with her family. 2. Osteoarthritis of spine with radiculopathy, cervical region - ICD9: 721.0, ICD10: M47.22 DM is controlled. Increase her gabapentin to 300mg morning and afternoon, 1200mg at bedtime. May consider switching to Lyrica and/or adding Remeron at next visit in 3-4 weeks. Recommend PT for her neck. This would likely help with ROM and strength, would like consideration for dry needling. She would benefit from a scooter for both in and outside her house to help improve her quality of life. ADLs are difficult, doesn't get around much due to the severe BLE pain. Would like to be about to get out of her house and do things with her family. - CONSULT TO PHYSICAL THERAPY 3. Altered gait - ICD9: 781.2, ICD10: R26.9 DM is controlled. Increase her gabapentin to 300mg morning and afternoon, 1200mg at bedtime. May consider switching to Lyrica and/or adding Remeron at next visit in 3-4 weeks. Recommend PT for her neck. This would likely help with ROM and strength, would like consideration for dry needling. She would benefit from a scooter for both in and outside her house to help improve her quality of life. ADLs are difficult, doesn't get around much due to the severe BLE pain. Would like to be about to get out of her house and do things with her family. 4. RLS (restless legs syndrome) - ICD9: 333.94, ICD10: G25.81 DM is controlled. Increase her gabapentin to 300mg morning and afternoon, 1200mg at bedtime. May consider switching to Lyrica and/or adding Remeron at next visit in 3-4 weeks. Recommend PT for her neck. This would likely help with ROM and strength, would like consideration for dry needling. She would benefit from a scooter for both in and outside her house to help improve her quality of life. ADLs are difficult, doesn't get around much due to the severe BLE pain. Would like to be about to get out of her house and do things with her family. 5. Nausea - ICD9: 787.02, ICD10: R11.0 - ONDANSETRON 4 MG DISINTEGRATING TABLET 6. Encounter for immunization - ICD9: V03.89, ICD10: Z23 - INFLUENZA VACCINE, PRSV FREE, AGE 65+ YR, HIGH DOSE, TRIVALENT (FLUZONE HIGH-DOSE) - [employer] COVID-19 VACCINE AGE 12+ YR (COMIRNATY) Jeanie Cortez APRN.CLOTH STOCK SORTER documented in this [facility]10-[facility] Telephone encounter Note * Telephone Encounter - Talya Aburto LPN - 04/10/2024 12:13 PM EDT The patient has been identified by name and date of : Yes Caregiver verified no other encounters exist for this prescription request: Yes Caregiver confirmed with patient/requestor that no other refills are due, in the near future, with this provider at this time: Yes The last office visit in the department: 10/03/2023 Does the patient have a future office visit with this provider/department: Yes 04-17-24. Pt will get fasting labs done as soon as she can. Requested Prescriptions Pending Prescriptions Disp Refills gabapentin (NEURONTIN) 300 mg capsule 270 capsule 0 Sig: Take 3 capsules by mouth daily at bedtime for 90 days. Talya Aburto LPN April 10, 2024 12:14 PM [facility]10-[facility] Miscellaneous Notes* Telephone Encounter - Talya Aburto LPN - 04/10/2024 12:13 PM EDT The patient has been identified by name and date of : Yes Caregiver verified no other encounters exist for this prescription request: Yes Caregiver confirmed with patient/requestor that no other refills are due, in the near future, with this provider at this time: Yes The last office visit in the department: 10/03/2023 Does the patient have a future office visit with this provider/department: Yes 04-17-24. Pt will get fasting labs done as soon as she can. Requested Prescriptions Pending Prescriptions Disp Refills gabapentin (NEURONTIN) 300 mg capsule 270 capsule 0 Sig: Take 3 capsules by mouth daily at bedtime for 90 days. Talya Aburto LPN April 10, 2024 12:14 PM documented in this encounterL[facility]08-08-2024 Telephone encounter Note * Telephone Encounter - Tasia Arias LPN - 01/26/2024 2:13 PM EDT Spoke with pt gave information provided. P[t voices understanding. [facility]08-08-[facility]24 Miscellaneous Notes* Telephone Encounter - Tasia Arias LPN - 01/26/2024 2:13 PM EDT Spoke with pt gave information provided. P[t voices understanding. * Telephone Encounter - Alysha Sol APRN.CNP - 01/26/2024 2:08 PM EDT Labs are ordered. Thank you, Alysha Sol APRN.CLOTH STOCK SORTER * Telephone Encounter - Negin Gonzalez MA - 01/26/2024 1:46 PM EDT Pt would like to get the blood work done that was suppose to be done in September as well. Labs pended. Notify pt when filed. Negin Gonzalez MA * Telephone Encounter - Tasia Arias LPN - 01/26/2024 1:42 PM EDT Line busy . Will need to try back. * Telephone Encounter - Alysha Sol APRN.CNP - 01/26/2024 10:38 AM EDT TB blood screening ordered. Thank you, Alysha Sol APRN.ROYA * Telephone Encounter - Sri Ashley LPN - 01/19/2024 10:05 AM EDT Patient calling asking if she could have TB blood test done? Her daughter has Latent TB, was told by Infectious Disease Dr. 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 Patient said she is not having any symptoms but her daughter did not either. Please advise documented in this encounterL[facility]08-08-2024 Telephone encounter Note * Telephone Encounter - Alysha Sol APRN.CNP - 01/26/2024 2:08 PM EDT Labs are ordered. Thank you, Alysha Sol APRN.CLOTH STOCK SORTER [facility]08-08-[facility] Telephone encounter Note* Telephone Encounter - Negin Gonzalez MA - 01/26/2024 1:46 PM EDT Pt would like to get the blood work done that was suppose to be done in September as well. Labs pended. Notify pt when filed. Negin Gonzalez MA [facility]08-08-[facility] Telephone encounter Note* Telephone Encounter - Tasia Arias LPN - 01/26/2024 1:42 PM EDT Line busy . Will need to try back. [facility] Telephone encounter Note* Telephone Encounter - Alysha Sol APRN.CNP - 01/26/2024 10:38 AM EDT TB blood screening ordered. Thank you, Alysha Sol APRN.CLOTH STOCK SORTER [facility]08-03-[facility] Telephone encounter Note* Telephone Encounter - Elba Teran RN - 01/21/2024 9:46 AM EDT The patient has been identified by name and date of : Yes Caregiver verified no other encounters exist for this prescription request: Yes Caregiver confirmed with patient/requestor that no other refills are due, in the near future, with this provider at this time: Yes The last office visit in the department: 10/03/2023 Does the patient have a future office visit with this provider/department: No Requested Prescriptions Pending Prescriptions Disp Refills gabapentin (NEURONTIN) 300 mg capsule 270 capsule 0 Sig: Take 3 capsules by mouth daily at bedtime for 90 days. Blood-Glucose Meter monitoring kit 1 Each 0 Sig: Test blood sugar(s) 2 times daily. Glucose Meter of Choice - Kit - Dx: Type 2 DM - Uncontrolled E11.65 blood sugar diagnostic (BLOOD GLUCOSE TEST) test strip 50 Strip 11 Sig: Test blood sugar(s) 2 times daily. Dx: Type 2 DM - Uncontrolled E11.65 Insulin: Yes Elba Teran RN January 21, 2024 9:48 AM [facility]08-03-2024 Miscellaneous Notes* Telephone Encounter - Elba Teran RN - 01/21/2024 9:46 AM EDT The patient has been identified by name and date of : Yes Caregiver verified no other encounters exist for this prescription request: Yes Caregiver confirmed with patient/requestor that no other refills are due, in the near future, with this provider at this time: Yes The last office visit in the department: 10/03/2023 Does the patient have a future office visit with this provider/department: No Requested Prescriptions Pending Prescriptions Disp Refills gabapentin (NEURONTIN) 300 mg capsule 270 capsule 0 Sig: Take 3 capsules by mouth daily at bedtime for 90 days. Blood-Glucose Meter monitoring kit 1 Each 0 Sig: Test blood sugar(s) 2 times daily. Glucose Meter of Choice - Kit - Dx: Type 2 DM - Uncontrolled E11.65 blood sugar diagnostic (BLOOD GLUCOSE TEST) test strip 50 Strip 11 Sig: Test blood sugar(s) 2 times daily. Dx: Type 2 DM - Uncontrolled E11.65 Insulin: Yes Elba Teran RN January 21, 2024 9:48 AM documented in this encounterL[facility] Telephone encounter Note * Telephone Encounter - Sri Ashley LPN - 01/19/2024 10:05 AM EDT Patient calling asking if she could have TB blood test done? Her daughter has Latent TB, was told by Infectious Disease Dr. 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 Patient said she is not having any symptoms but her daughter did not either. Please advise [facility]04-18-2024 Miscellaneous Notes* Telephone Encounter - Talya Aburto LPN - 10/06/2023 1:36 PM EDT Spoke with pt and information listed below given. Pt verbalizes understanding. Talya Aburto LPN * Telephone Encounter - Edwina Shepard MA - 10/05/2023 6:02 PM EDT Left message to return call Edwina Shepard MA * Telephone Encounter - Alysha Sol APRN.CNP - 10/05/2023 5:22 PM EDT Please call patient and let her know that: There are no concerns or evidence of malignancy from recent mammogram. Continue with the recommended 1 year screening mammograms. Thank you, Alysha Sol APRN.CLOTH STOCK SORTER documented in this encounterLakehealth [facility]04-17-2024 Miscellaneous Notes* Letter - Coordinator, Mammography - 10/05/2023 12:39 PM EDT October 05, 2023 PID: [id number] Carlos Covarrubias [address] [place] [address] Dear Ms. Covarrubias, We are pleased to inform you that the results of your recent breast imaging exam on 10/04/2023 are normal. Early detection of cancer is very important. We also understand recommendations regarding breast cancer screening are controversial. Please discuss with your primary care provider which strategy is best for you and whether a mammogram is right for you. Your imaging studies and report will be kept on file at [facility] as part of your permanent medical record and are available for your continuing care. Thank you for allowing us to help in meeting your health care needs. Sincerely, Dr. Covarrubias Interpreting Radiologist [facility] (Normal over 40) documented in this encounterLakehealth [facility]04-16-2024 History of Present illness Narrative* Rose Wallace Mammo Tech - 10/04/2023 7:30 AM EDT Radiology Service Progress Note PATIENT NAME: Carlos Covarrubias DATE OF SERVICE: October 04, 2023 TIME: 7:29 AM PATIENT IDENTITY VERIFICATION COMPLETED USING TWO (2) IDENTIFIERS: Name and Date of confirmedby patient verbally. FALL SCREENING: Has the patient had 2 falls in the last year or 1 fall with injury or currently using an Ambulatory Assistive Device (Walker, Cane, Wheelchair, Crutches, etc.)? No PATIENT GENDER DATA: Female. status: : No status: NO. PATIENT RELEVANT IMPLANT DATA REVIEWED: Not Applicable PATIENT PRESENTS WITH AN IMPLANTABLE OR ATTACHED CLOSING MACHINE OPERATOR: No RADIOLOGY DEPARTMENT: Mammography PERIPHERAL IV DATA: Not applicable SIGNED BY: Ronal Coronado October 04, 2023 7:29 AM documented in this encounterLakehealth [facility]04-15-2024 Instructions* Patient Instructions* Jeanie Cortez APRN.CNP - 10/03/2023 10:58 AM EDT Get scheduled for your eye appointment. Screening schedule The following prevention plan is recommended: Mammogram Screening due on 01/29/2022 HbA1C due on 03/02/2023 LDL Cholesterol due on 08/31/2023 Diabetic Foot Exam due on 08/31/2023 WHAT YOU CAN DO TO PREVENT FALLS Many falls can be prevented. By making some changes, you can lower your chances of falling. Four things YOU can do to prevent falls for you* and your caregiver 1. Begin a regular exercise program Exercise is one of the most important ways to lower your chances of falling. It makes you stronger and helps you feel better. Exercises that improve balance and coordination (like Waylon Chi) are the most helpful. Lack of exercise leads to weakness and increases your chances of falling. Ask your doctor or health care provider about the best type of exercise program for you. 2. Have your health care provider review your medicines Have your doctor or pharmacist review all the medicines you take, even fjio-kka-dnlksgr medicines. As you get older, the way medicines work in your body can change. Some medicines, or combinations of medicines, can make you sleepy or dizzy andcan cause you to fall. 3. Have your vision checked Have your eyes checked by an eye doctor at least once a year. You may be wearing the wrong glasses or have a condition like glaucoma or cataracts that limits your vision. Poor vision can increase your chances of falling. 4. Make your home safer About half of all falls happen at home. To make your home safer: Remove things you can trip over (like papers, books, clothes, and shoes) from stairs and places where you walk. Remove small throw rugs or use double-sided tape to keep the rugs from slipping. Keep items you use often in cabinets you can reach easily without using a step stool. Have grab bars put in next to your toilet and in the tub or shower. Use non-slip mats in the bathtub and on shower floors. Improve the lighting in your home. As you get older, you need brighter lights to see well. Hang light-weight curtains or shades to reduce glare. Have handrails and lights put in on all staircases. Wear shoes both inside and outside the house. Avoid going barefoot or wearing slippers. For more information, contact: Centers for Disease Control and Prevention www.cdc.gov/injury * This information may not apply if you have certain medical conditions. documented in this encounterLakehealth [facility]04-15-2024 History of Present illness Narrative* Jeanie Cortez APRN.CNP - 10/03/2023 10:37 AM EDT Images from the original note were not included. Carlos Covarrubias is a 68 year old female here for a Medicare wellness visit. Medicare Health Risk Assessment General Health Fair Exercise: Minutes/Day 0 min Exercise: Days/Week 0 days Alcohol: Daily Use Never Alcohol: Drinks/Day Patient does not drink Alcohol: 6 or more drinks Never Feel off balance Yes Concerns: Teeth/Dentures No Concerns: Sexual function No Troubled by feelings Angry; Stressed Frequency: Eating healthy diet Several days ADLs requiring help None of the above Safety precautions in home/vehicle Yes Smoke, vape, chews tobacco No Difficulty hearing No Difficulty seeing No (Will follow up with eye doctor) Current Providers Specialists: I have reviewed specialist-related care of the patient in the medical record. Medical/Family history review Reviewed and updated problem list, medical/surgical/family/social history, medications, and allergies. Opioid use review Opioid Medications (last 90 days) No data to display Depression screening Depression Screening PHQ-2 Score 10/03/2023 2 Depression screening tool completed and reviewed. Based on score and interview, patient is already diagnosed with depression. Screening tool discussed with patient, and I recommended continuing current plan of care. Cognitive screening Mini Cog Score: 5 Cognitive screening reviewed and no further action needed (score 3-5) Functional Observation Was the patient's Timed Up & Go test unsteady or ? 12 seconds? No Advance Care Planning Patient did not wish or was not able to name a surrogate decision maker or provide an advance care plan Measurements BP 108/76 Pulse 69 Resp 16 Ht 5' 7.323" (1.71m) Wt 221 lb 9.6 oz (100.5kg) SpO2 96% BMI34.38 kg/(m^2). Vision Screening: Right: 20/30 Left: 20/ 70 Both: 2030 Assessment/Plan Medicare annual wellness visit, subsequent (Z00.00) - Counseled on healthy diet and regular exercise - Fall avoidance information provided - Personalized prevention plan provided Carlos Covarrubias is a 68 year old female here for a Medicare wellness visit. Jeanie Cortez APRN.CNP documented in this encounterLakehealth [facility]04-10-2024 Miscellaneous Notes* Telephone Encounter - Tasia Arias LPN - 09/28/2023 10:44 AM EDT Patient has been identified by name and date of : Yes, Provider Dr. Driver Date 09/28/23 Time 10:45 Patient phones for refill(s): Requested Prescriptions Pending Prescriptions Disp Refills omeprazole (PRILOSEC) 40 mg capsule 180 capsule 2 Sig: Take 1 capsule by mouth two times a day. atorvastatin (LIPITOR) 40 mg tablet 90 tablet 3 Sig: Take 1 tablet by mouth once daily. gabapentin (NEURONTIN) 300 mg capsule 270 capsule 0 Sig: Take 3 capsules by mouth daily at bedtime for 90 days. glimepiride (AMARYL) 2 mg tablet 90 tablet 3 Sig: Take 1 tablet by mouth daily with breakfast. lisinopril (ZESTRIL) 20 mg tablet 135 tablet 3 Sig: Take 1.5 tablets by mouth once daily. sertraline (ZOLOFT) 50 mg tablet 90 tablet 3 Sig: Take 1 tablet by mouth once daily. traZODone (DESYREL) 100 mg tablet 180 tablet 3 Sig: Take 2 tablets by mouth daily at bedtime. Date of last office visit in primary care: 05/31/2023 Date of next office visit in primary care: Visit date not found Please advise. Thank you. Tasia Arias LPN. * Telephone Encounter - Eve Burdick - 09/27/2023 2:29 PM EDT Patient has been identified by name and date of : Yes Requested Prescriptions Pending Prescriptions Disp Refills omeprazole (PRILOSEC) 40 mg capsule 180 capsule 2 Sig: Take 1 capsule by mouth two times a day. atorvastatin (LIPITOR) 40 mg tablet 90 tablet 3 Sig: Take 1 tablet by mouth once daily. gabapentin (NEURONTIN) 300 mg capsule 270 capsule 0 Sig: Take 3 capsules by mouth daily at bedtime for 90 days. glimepiride (AMARYL) 2 mg tablet 90 tablet 3 Sig: Take 1 tablet by mouth daily with breakfast. lisinopril (ZESTRIL) 20 mg tablet 135 tablet 3 Sig: Take 1.5 tablets by mouth once daily. sertraline (ZOLOFT) 50 mg tablet 90 tablet 3 Sig: Take 1 tablet by mouth once daily. traZODone (DESYREL) 100 mg tablet 180 tablet 3 Sig: Take 2 tablets by mouth daily at bedtime. RX INSTRUCTIONS: Patient aware RX will be sent to pharmacy. No need to notify patient. Eve Aleman documented in this encounterLakehealth [facility]03-23-2024 History of Present illness Narrative* Asya Wong MA - 09/10/2023 12:01 PM EDT POPULATION HEALTH NAVIGATION OUTREACH Action/FYI No Wellness exam on file Mammogram ordered 02/09/2023 Agreeable to schedule wellness and mammogram. Will call to schedule eye exam later. Reason for Outreach Care Gap/HCC or Scheduling Wellness Visits Care Gaps due: Medicare Annual Wellness Visit Breast Cancer Screening Diabetic Eye Exam Patient Contacted: Spoke to patient/parent/or legal guardian Patient identified by name and : Yes Care Gap/HCC/Scheduling Wellness actions taken: Patient scheduled/pended labs: Medicare Annual Wellness Visit Breast Cancer Screening 09/15/2023 in [facility] with ALYSHA SOL - Medicare Wellness exam 09/15/2023 in [facility] with SCREEN MAMMO [facility] - Encounter for screening mammogram for breast cancer [Z12.31] Navigation Signature: Asya Guzman MA September 10, 2023 12:01 PM documented in this encounterLakehealth [facility] Center03-06-2024 Miscellaneous Notes* Telephone Encounter - Marisabel Colin LPN - 08/24/2023 12:42 PM EST Left message for pt to contact office. Marisabel Colin LPN * Telephone Encounter - Paulette Schmid PA-C - 08/24/2023 12:14 PM EST Repeat cxr is normal. Paulette Schmid PA-C documented in this encounterLakehealth [facility] Center03-05-2024 History of Present illness Narrative* Xuan Perez, RT(R) - 08/23/2023 1:20 PM EST Radiology Service Progress Note PATIENT NAME: Carlos Covarrubias DATE OF SERVICE: August 23, 2023 TIME: 1:14 PM PATIENT IDENTITY VERIFICATION COMPLETED USING TWO (2) IDENTIFIERS: Name and Date of confirmedby patient verbally. FALL SCREENING: Has the patient had 2 falls in the last year or 1 fall with injury or currently using an Ambulatory Assistive Device (Walker, Cane, Wheelchair, Crutches, etc.)? No PATIENT GENDER DATA: Female. status: : No status: NO. PATIENT RELEVANT IMPLANT DATA REVIEWED: Yes PATIENT PRESENTS WITH AN IMPLANTABLE OR ATTACHED CLOSING MACHINE OPERATOR: No RADIOLOGY DEPARTMENT: General X-ray: Exam(s) Completed: Chest X-Ray PERIPHERAL IV DATA: Not applicable SIGNED BY: RT Mya(Dav) August 23, 2023 1:14 PM documented in this encounterLakehealth [facility]point [facility] Center12-12-2023 History of Present illness Narrative* Xuan Perez RT(Dav) - 05/31/2023 12:50 PM EST Radiology Service Progress Note PATIENT NAME: Carlos Covarrubias DATE OF SERVICE: May 31, 2023 TIME: 12:55 PM PATIENT IDENTITY VERIFICATION COMPLETED USING TWO (2) IDENTIFIERS: Name and Date of confirmedby patient verbally. FALL SCREENING: Has the patient had 2 falls in the last year or 1 fall with injury or currently using an Ambulatory Assistive Device (Walker, Cane, Wheelchair, Crutches, etc.)? No PATIENT GENDER DATA: Female. status: : No status: NO. PATIENT RELEVANT IMPLANT DATA REVIEWED: Yes RADIOLOGY DEPARTMENT: General X-ray: Exam(s) Completed: Chest X-Ray PERIPHERAL IV DATA: Not applicable SIGNED BY: RT Mya(Dav) May 31, 2023 12:55 PM documented in this encounterLakehealth [facility]point [facility] Center12-12-2023 Miscellaneous Notes* Addendum Note - Femi Alarcon APRN.CLOTH STOCK SORTER - 05/31/2023 12:26 PM ESTAddended by: FEMI ALARCON on: 05/31/2023 12:26 PM Modules accepted: Orders * Addendum Note - Femi Alarcon APRN.CNP - 05/31/2023 12:14 PM ESTAddended by: FEMI ALARCON on: 05/31/2023 12:14 PM Modules accepted: Orders documented in this encounterLakehealth [facility] Center12-12-2023 History of Present illness Narrative* Femi Alarcon APRN.CNP - 05/31/2023 12:00 PM EST Chief Complaint Patient presents with: Cough Wheezing HPI Carlos Covarrubias is a 67 year old female who presents here today for Above Complaints.. Patient presents for cough and wheezing x1 week. Patient reports she has not used any OTC medications. Patient also reports she has not used her inhaler for the wheezing and SOB. Patient reports she is improving the past day or two. Past medical history, appointments, medications, allergies reviewed. 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 08/07/2011 Seborrheic Keratosis 10/23/2010 Skin tag 08/07/2011 Tobacco abuse 07/13/2013 Trigger finger b/l hands, has had surgeries Type II or unspecified type diabetes mellitus without mention of complication, not stated as uncontrolled Unspecified hereditary and idiopathic peripheral neuropathy Previous Surgical History PAST SURGICAL HISTORY Procedure Laterality Date CHOLECYSTECTOMY HX 1994 Cholecystectomy, laparoscopic COLONOSCOPY 02/19/2015 ESOPHAGOGASTRODUODENOSCOPY TRANSORAL DIAGNOSTIC 03/28/2013 EGD ESOPHAGOGASTRODUODENOSCOPY TRANSORAL DIAGNOSTIC 02/23/2017 EGD PAST SURGICAL HISTORY OF 1974 LEANDRO PAST SURGICAL HISTORY OF 1980 Bilateral salpingoophorectomy PAST SURGICAL HISTORY OF 1986 Lumbar laminectomy PAST SURGICAL HISTORY OF 2002- multiple right partial clavicle resection and first rib resection- septic arthritis PAST SURGICAL HISTORY OF 07/2016 back surgery Lumbar/ thoracic Family History FAMILY HISTORY Problem Relation Age of Onset Diabetes Mother Stroke Mother Coronary Artery Disease Sister Early 40's with finding of ASCVD Coronary Artery Disease Brother 2 brothers diagnosed in their 60's Cancer Brother One brother with brain cancer and another one with tumors "all over his body" Coronary Artery Disease Father ASCVD in his 80's Coronary Artery Disease Brother Cancer Brother Patient Allergies ALLERGIES Allergen Reactions Augmentin [Amoxicil* GI Upset Nausea, vomiting Biaxin [Clarithromy* GI Upset Metallic taste; can tolerate Zpak Byetta [Exenatide] Intolerance GI upset Glucophage [Metform* Intolerance GI upset Iodine Swelling myleogram dye Latex Unknown Omnicef [Cefdinir] GI Upset Nausea, vomiting Current Medications Current Outpatient Medications on File Prior to Visit Medication Sig gabapentin (NEURONTIN) 300 mg capsule Take 3 capsules by mouth daily at bedtime for 90 days. sertraline (ZOLOFT) 50 mg tablet Take 1 tablet by mouth once daily. ondansetron orally disintegrating (ZOFRAN ODT) 4 mg disintegrating tablet Take 1 tablet by mouth every 8 hours as needed for nausea/vomiting. atorvastatin (LIPITOR) 40 mg tablet Take 1 tablet by mouth once daily. glimepiride (AMARYL) 2 mg tablet Take 1 tablet by mouth daily with breakfast. lisinopril (ZESTRIL) 20 mg tablet Take 1.5 tablets by mouth once daily. traZODone (DESYREL) 100 mg tablet Take 2 tablets by mouth daily at bedtime. omeprazole (PRILOSEC) 40 mg capsule Take 1 capsule by mouth twice daily. Insulin Syringe-Needle U-100 (BD INSULIN SYRINGE UF) 0.5 mL 30 gauge x 1/2" inject with insulin Four times a day with each meal and at bedtime as directed blood sugar diagnostic (BLOOD GLUCOSE TEST) test strip Test blood sugar(s) 2 times daily. Dx: Type 2 DM - Uncontrolled E11.65 Insulin: Yes ACCU-CHEK GUIDE GLUCOSE METER USE DIRECTED Blood-Glucose Meter monitoring kit Glucose Meter of Choice - Kit - Dx: Type 2 DM - Uncontrolled E11.65 albuterol HFA (PROVENTIL HFA, VENTOLIN HFA) 90 mcg/actuation inhaler Inhale 2 Puffs as instructed every 6 hours as needed for wheezing/shortness of breath. insulin NPH human isophane (NOVOLIN N SUBCUTANEOUS) Inject subcutaneously. insulin regular, human (NOVOLIN R REGULAR U-100 INSULN INJECTION) by INJECTION(UNSPECIFIED PARENTERAL ROUTES) route. 34 units in the Am insulin NPH injection (HumuLIN N,NovoLIN N) 35 units in the Am 45 units in the PM nitroglycerin sublingual (NITROQUICK) 0.4 mg SL tablet Dissolve 1 tablet under the tongue as needed. for chest pain,every 5 min x3 insulin regular human (HUMULIN R REGULAR U-100 INSULN) 100 unit/mL injection Inject 24 Units subcutaneously daily with breakfast. (Patient taking differently: Inject 35 Units subcutaneously daily with breakfast.) Lancets lancets Test blood sugar(s) BID times daily. Dx: Type 2 DM - Uncontrolled E11.65 Insulin: Yes aspirin, enteric coated (ECOTRIN LOW STRENGTH) 81 mg EC tablet Take 1 tablet by mouth once daily. No current facility-administered medications on file prior to visit. Social History Social History Tobacco Use Smoking status: Former Packs/day: 0.50 Years: 45.00 Additional pack years: 0.00 Total pack years: 22.50 Types: Cigarettes Start date: 03/29/1967 Quit date: 08/18/2018 Years since quittin.7 Smokeless tobacco: Never Vaping Use Vaping Use: Never used Substance Use Topics Alcohol use: No Drug use: No Review of Symptoms REVIEW OF SYSTEMS SEE HPI EXAM: BP 120/68 Pulse 74 Temp 36.8 C (98.2 F) Resp 16 Wt 98.4 kg (217 lb) SpO2 99% BMI 33.99 kg/m General Appearance: Well appearing, alert, in no acute distress, well-hydrated, well nourished.. Nose/Sinuses: Nares normal, septum midline, mucosa normal, no drainage or sinus tenderness. Oropharynx: Lips, mucosa, and tongue normal, teeth and gums normal, oropharynx normal. Lungs: Lungs clear to auscultation. No wheezing, rhonchi, rales. Positive findings: wheezing Shortness of breath: While lying flat Cough. Heart: RRR without murmur, gallop, or rubs. No ectopy. Health Maintenance List Lung Cancer Screening Never done RSV Vaccine(1 - 1-dose 60+ series) Never done Dilated Retinal Exam due on 01/28/2022 Mammogram Screening due on 01/29/2022 HbA1C due on 03/02/2023 Pneumococcal Vaccine: 65+(3 - PPSV23 or PCV20) due on 02/04/2024 LDL Cholesterol due on 08/31/2023 Diabetic Foot Exam due on 08/31/2023 Urine Albumin:Creatinine Ratio due on 03/04/2024 Annual PCP Team Chronic Disease Visit due on 03/04/2024 BP Controlled (<130/80) due on 04/04/2024 Colorectal Cancer Screening due on 02/19/2025 DTaP,Tdap,Td Vaccine(2 - Td or Tdap) due on 05/19/2028 Bone Density Screening Completed Influenza Vaccine Completed Hepatitis C Screening Completed Shingrix Vaccine Completed Covid-19 Vaccine Completed Advance Directive Discussion Discontinued ASSESSMENT/PLAN: 1. Acute cough - ICD9: 786.2, ICD10: R05.1 (primary diagnosis) - XR CHEST 2V FRONTAL/LAT - ALBUTEROL SULFATE HFA 90 MCG/ACTUATION AEROSOL INHALER 2. Viral URI - ICD9: 465.9, ICD10: J06.9 - Discussed viral etiology and rationale for treatment. - Symptomatic treatment with prn analgesia - Supportive care with fluids and rest 3. Burning with urination - ICD9: 788.1, ICD10: R30.0 acute - UA DIP, URINE (POC) - URINE CULTURE 4. Urinary tract infection without hematuria, site unspecified - ICD9: 599.0, ICD10: N39.0 acute - UA positive for noah esterase and proteinuria - Send urine for culture - Begin treatment with Macrobid 100 mg BID for 7 days - Patient education for prevention given - NITROFURANTOIN MONOHYDRATE & MACROCRYSTAL 100 MG ORAL CAP Femi Alarcon APRN.CLOTH STOCK SORTER documented in this encounterLakehealth [facility]point [facility] Center10-27-2023 History of Present illness Narrative* Vito Casiano, PT - 04/15/2023 2:19 PM EDT Episode Visit Count: 1 Therapist That Will Accept/Oversee The Plan Of Care: Vito Casiano Start of Care Date: 04/14/23 Onset Date: 02/03/23 Plan of Care Certification Date: 04/14/23 Next Certification Due Date: 06/14/23 Patient Identified by Name and Date of : Yes REHABILITATION AND SPORTS THERAPY PHYSICAL THERAPY EVALUATION PLAN OF CARE: Assessment: Carlos Covarrubias presents with chief complaint of neck pain that interferes with bending, heavy exertion, lifting, physical activities . She presents with impairments in ADL's, overall function, range of motion, strength, symptom management, and tissue tenderness. Patient did not complete the PROMIS (Patient Reported Outcome Measures Information System). Prognosis for therapy is Fair due to: clinical presentation, chronic nature of impairments, limited tolerance to activity . She will benefit from skilled therapy services to meet the goals established for this plan of care as noted below. Goals for Episode of Care: created on 04/14/23 through 06/15/23 Independent in a Home Exercise Program. Patient will decrease pain rating by 2 points to meet minimal clinical important difference for numeric pain rating scale. Restore pain free cervical ROM to WNL to allow for improved functional mobility and decreased pain. Sleep throughout the night without pain/symptoms. Planned Interventions, Frequency, and Duration: Current Frequency: 1x/week Duration: 8 weeks Total Number of Visits Planned: 8 Planned Treatment Interventions: Therapeutic exercise (18105), Neuromuscular re- education (46623), Manual therapy (12467), Therapeutic activities (81339), Self- long-term management (78523), Patient/Family/Caregiver Education, Body Mechanics Training PLAN FOR NEXT VISIT: Continue traction. Work neck and scapular strengthening Patient demonstrates good understanding of plan of care and treatment. The above goals and plan of care were discussed and agreed upon by patient/family. SUBJECTIVE: Neck pain for years but worsening onset ~ 2-3 months ago when she fell into a wall and then had a pinched nerve and went to the ER. Pt notes that she has bad numbness and pain inR>L arm, numbness to hand, pain to elbow. Hurts to turn, look up or down. Sleeping is interuppted as she cant stay in 1 position for very long. Functional Limitations: bending, heavy exertion, lifting, physical activities Prior Level of Function: Independent without limitations Intake Information: Prescription present Pain: Pain Pain Level: 9 Pain Location: Neck Description: Sharp, Aching, Tightness Frequency: Continuous PROMIS Scales T-scores: mean of general population = 50. 5 points is clinically meaningfully difference Percentiles provide an indication of how the patient's score ranks in relation to the general population. Higher percentile rankings indicate better function/quality of life. 50th percentile is the average of the general population and indicates half of respondents had a worse score. OBJECTIVE MEASURES WITH LEVEL OF FUNCTION: Spine Observations R Cervical Spine Palpation Tenderness: Upper trapezius, Paraspinals L Cervical Spine Palpation Tenderness: Upper trapezius, Paraspinals Cervical Spine ROM Cervical ROM : Limitation AROM Cervical Flexion AROM: Normal Cervical Extension AROM: Moderate limitation Cervical Side-Bend Right AROM: Moderate limitation Cervical Side-Bend Left AROM: Moderate limitation Cervical Rotation Right AROM: Moderate limitation Cervical Rotation Left AROM: Moderate limitation UE and Cervical Strength R UE Strength: 4+/5 L UE Strength: 4+/5 Special Tests - Cervical Cervical Special Tests: Cervical Compression, Cervical Distraction, Quadrant, Spurling Education: Education Learning/educational needs: Home exercise program, Plan of Care, Changes in Plan of Care, Body Mechanics TREATMENT: PT Treatment Interventions: Therapeutic Exercise, Manual Therapy Evaluation Therapeutic Exercise: 1: *Upper trap stretch 3x30 sec/side 2: *Levator stretch 3x30 sec/side 3: Discussed how exercises are geared towards opening space in forminal openings Skilled Intervention: Patient was educated in proper exercise technique and purpose for exercises. Skilled judgment was used in selection of appropriate interventions. Provided written instruction for home exercise program to facilitate proper performance and compliance. Correct performance of therapeutic exercises was facilitated with verbal, visual, and tactile cuing. Manual Therapy: 1: STM to B upper traps and cervical paraspinals 2: Manual cervical traction x12 min Skilled Intervention: Manual skills to improve joint mobility, ROM, and decrease pain. Utilized anatomy knowledge of the therapist, and assessment of patient's response to intervention. Billing * Evaluation Low Complexity: 1 Unit Therapeutic Exercise Treatment Minutes: 5 Manual TherapyTreatment Minutes: 18 Skilled Treatment Time Minutes (timed and untimed codes): 40 Total Session Time (minutes): 40 Session Start Time : 1005 Session Stop Time : 1045 Vito Casiano PT documented in this encounterL[facility] Miscellaneous Notes* Telephone Encounter - Osito Mosley RN - 04/12/2023 9:49 AM EDT Phoned patient and given provider's message below with verbalized understanding. * Telephone Encounter - El Driver DO - 04/12/2023 9:18 AM EDT There are many neurosurgeons/spine surgeons through [facility] whom are great. Can consider Dr. Valentino, Dr. Marley, Dr. Juan Jose Avila and others. Thanks El Driver DO * Telephone Encounter - Norma Morillo - 04/09/2023 10:51 AM EDT Spoke to patient who is asking who Dr. Driver would be referring her to and to also place the consult to that doctos department. * Telephone Encounter - Tasia Arias LPN - 04/07/2023 10:47 AM EDT Please assist in scheduling for second opinion. * Telephone Encounter - El Driver DO - 04/07/2023 9:48 AM EDT Okay for her to schedule 2nd opinion then as requesting El Driver DO * Telephone Encounter - Anette Iglesias LPN - 04/05/2023 3:17 PM EDT Pt states she was asked by pcp to let her know who she was seeing for neck/back pain, pt states shesaw Dr Olinda Chávez. Pt reports neurosurgeon doesn't think she needs to have surgery right now.Also states she was told that her case is tricky. Pt states she would like a 2nd opinion. Pt asking for a recommendation who to see? Please advised. Anette Iglesias LPN documented in this encounterLake[facility]10-16-[facility]23 NoteHNO ID: [id number] Author: Olinda Chávez MD, PhD Service: ? Author Type: Physician Type: Progress Notes Filed: 04/04/2023 4:15 PM Note Text: NEUROSURGERY CONSULT NOTE Olinda Chávez MD, PhD Date of visit: April 04, 2023 Patient Name: Ms.Barbara Jorge A Covarrubias Date of : 1955 Current Age: [age] year old Sex: female MRN/E# [id number] Chief Complaint: No chief complaint on file. HISTORY OF PRESENT ILLNESS : The patient is a 67 year old, emale with a past medical history of ASCVD, DDD, GERD, HTN, HPL, neuropathy, neurofibroma, seborrheic keratosis, tobacco use, trigger finger and DM 2 who is for neurosurgical evaluation. Today she states that she was referred to spine surgeon because of ongoing neck discomfort and history of possible radicular pain on her right side. She does have a history of dropping things frequently. She presents for imaging review, evaluation and plan of care. Smoker: former Diabetic: yes. A1c 6.7 on 08/30/2022 Anticoagulants / Antiplatelets: ASA PREVIOUS CONSERVATIVE TREATMENTS: Gabapentin PREVIOUS SURGERY: SURGERY #1: Lumbar laminectomy -1986 SURGERY #2: back surgery Lumbar/ thoracic - 07/2016 PAIN EVALUATION No data found in the last 1 encounters. 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 08/07/2011 Seborrheic Keratosis 10/23/2010 Skin tag 08/07/2011 Tobacco abuse 07/13/2013 Trigger finger b/l hands, has had surgeries Type II or unspecified type diabetes mellitus without mention of complication, not stated as uncontrolled Unspecified hereditary and idiopathic peripheral neuropathy PAST SURGICAL HISTORY Procedure Laterality Date CHOLECYSTECTOMY HX 1994 Cholecystectomy, laparoscopic COLONOSCOPY 02/19/2015 ESOPHAGOGASTRODUODENOSCOPY TRANSORAL DIAGNOSTIC 03/28/2013 EGD ESOPHAGOGASTRODUODENOSCOPY TRANSORAL DIAGNOSTIC 02/23/2017 EGD PAST SURGICAL HISTORY OF 1974 LEANDRO PAST SURGICAL HISTORY OF 1980 Bilateral salpingoophorectomy PAST SURGICAL HISTORY OF 1986 Lumbar laminectomy PAST SURGICAL HISTORY OF 2002- multiple right partial clavicle resection and first rib resection- septic arthritis PAST SURGICAL HISTORY OF 07/2016 back surgery Lumbar/ thoracic FAMILY HISTORY Problem Relation Age of Onset Diabetes Mother Stroke Mother Coronary Artery Disease Sister Early 40's with finding of ASCVD Coronary Artery Disease Brother 2 brothers diagnosed in their 60's Cancer Brother One brother with brain cancer and another one with tumors "all over his body" Coronary Artery Disease Father ASCVD in his 80's Coronary Artery Disease Brother Cancer Brother ALLERGIES Allergen Reactions Augmentin [Amoxicil* GI Upset Nausea, vomiting Biaxin [Clarithromy* GI Upset Metallic taste; can tolerate Zpak Byetta [Exenatide] Intolerance GI upset Glucophage [Metform* Intolerance GI upset Iodine Swelling myleogram dye Latex Unknown Omnicef [Cefdinir] GI Upset Nausea, vomiting Current Outpatient Medications Medication Sig Dispense Refill gabapentin (NEURONTIN) 300 mg capsule Take 3 capsules by mouth daily at bedtime for 90 days. 270 capsule 0 sertraline (ZOLOFT) 50 mg tablet Take 1 tablet by mouth once daily. 90 tablet 3 ondansetron orally disintegrating (ZOFRAN ODT) 4 mg disintegrating tablet Take 1 tablet by mouth every 8 hours as needed for nausea/vomiting. 20 tablet 5 atorvastatin (LIPITOR) 40 mg tablet Take 1 tablet by mouth once daily. 90 tablet 3 glimepiride (AMARYL) 2 mg tablet Take 1 tablet by mouth daily with breakfast. 90 tablet 3 lisinopril (ZESTRIL) 20 mg tablet Take 1.5 tablets by mouth once daily. 135 tablet 3 traZODone (DESYREL) 100 mg tablet Take (more content not included)...[facility]10-16-2023 History of Present illness Narrative* Olinda Chávez MD, PhD - 04/04/2023 3:00 PM EDT NEUROSURGERY CONSULT NOTE Olinda Chávez MD, PhD Date of visit: April 04, 2023 Patient Name: Ms.Barbara Jorge A Covarrubias Date of : 1955 Current Age: [age] year old Sex: female MRN/E# [id number] Chief Complaint: No chief complaint on file. HISTORY OF PRESENT ILLNESS : The patient is a 67 year old, emale with a past medical history of ASCVD, DDD, GERD, HTN, HPL, neuropathy, neurofibroma, seborrheic keratosis, tobacco use, trigger finger and DM 2 who is for neurosurgical evaluation. Today she states that she was referred to spine surgeon because of ongoing neck discomfort and history of possible radicular pain on her right side. She does have a history of dropping things frequently. She presents for imaging review, evaluation and plan of care. Smoker: former Diabetic: yes. A1c 6.7 on 08/30/2022 Anticoagulants / Antiplatelets: ASA PREVIOUS CONSERVATIVE TREATMENTS: Gabapentin PREVIOUS SURGERY: SURGERY #1: Lumbar laminectomy -1986 SURGERY #2: back surgery Lumbar/ thoracic - 07/2016 PAIN EVALUATION No data found in the last 1 encounters. 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 08/07/2011 Seborrheic Keratosis 10/23/2010 Skin tag 08/07/2011 Tobacco abuse 07/13/2013 Trigger finger b/l hands, has had surgeries Type II or unspecified type diabetes mellitus without mention of complication, not stated as uncontrolled Unspecified hereditary and idiopathic peripheral neuropathy PAST SURGICAL HISTORY Procedure Laterality Date CHOLECYSTECTOMY HX 1994 Cholecystectomy, laparoscopic COLONOSCOPY 02/19/2015 ESOPHAGOGASTRODUODENOSCOPY TRANSORAL DIAGNOSTIC 03/28/2013 EGD ESOPHAGOGASTRODUODENOSCOPY TRANSORAL DIAGNOSTIC 02/23/2017 EGD PAST SURGICAL HISTORY OF 1974 LEANDRO PAST SURGICAL HISTORY OF 1980 Bilateral salpingoophorectomy PAST SURGICAL HISTORY OF 1986 Lumbar laminectomy PAST SURGICAL HISTORY OF 2002- multiple right partial clavicle resection and first rib resection- septic arthritis PAST SURGICAL HISTORY OF 07/2016 back surgery Lumbar/ thoracic FAMILY HISTORY Problem Relation Age of Onset Diabetes Mother Stroke Mother Coronary Artery Disease Sister Early 40's with finding of ASCVD Coronary Artery Disease Brother 2 brothers diagnosed in their 60's Cancer Brother One brother with brain cancer and another one with tumors "all over his body" Coronary Artery Disease Father ASCVD in his 80's Coronary Artery Disease Brother Cancer Brother ALLERGIES Allergen Reactions Augmentin [Amoxicil* GI Upset Nausea, vomiting Biaxin [Clarithromy* GI Upset Metallic taste; can tolerate Zpak Byetta [Exenatide] Intolerance GI upset Glucophage [Metform* Intolerance GI upset Iodine Swelling myleogram dye Latex Unknown Omnicef [Cefdinir] GI Upset Nausea, vomiting Current Outpatient Medications Medication Sig Dispense Refill gabapentin (NEURONTIN) 300 mg capsule Take 3 capsules by mouth daily at bedtime for 90 days. 270 capsule 0 sertraline (ZOLOFT) 50 mg tablet Take 1 tablet by mouth once daily. 90 tablet 3 ondansetron orally disintegrating (ZOFRAN ODT) 4 mg disintegrating tablet Take 1 tablet by mouth every 8 hours as needed for nausea/vomiting. 20 tablet 5 atorvastatin (LIPITOR) 40 mg tablet Take 1 tablet by mouth once daily. 90 tablet 3 glimepiride (AMARYL) 2 mg tablet Take 1 tablet by mouth daily with breakfast. 90 tablet 3 lisinopril (ZESTRIL) 20 mg tablet Take 1.5 tablets by mouth once daily. 135 tablet 3 traZODone (DESYREL) 100 mg tablet Take 2 tablets by mouth daily at bedtime. 180 tablet 3 omeprazole (PRILOSEC) 40 mg capsule Take 1 capsule by mouth twice daily. 180 capsule 2 Insulin Syringe-Needle U-100 (BD INSULIN SYRINGE UF) 0.5 mL 30 gauge x 1/2" inject with insulin Four times a day with each meal and at bedtime as directed 100 Each 0 blood sugar diagnostic (BLOOD GLUCOSE TEST) test strip Test blood sugar(s) 2 times daily. Dx: Type 2 DM - Uncontrolled Insulin: Yes 200 Strip 3 ACCU-CHEK GUIDE GLUCOSE METER USE DIRECTED 1 Each 0 Blood-Glucose Meter monitoring kit Glucose Meter of Choice - Kit - Dx: Type 2 DM - Uncontrolled 1 Each 0 albuterol HFA (PROVENTIL HFA, VENTOLIN HFA) 90 mcg/actuation inhaler Inhale 2 Puffs as instructed every 6 hours as needed for wheezing/shortness of breath. 1 Each 0 insulin NPH human isophane (NOVOLIN N SUBCUTANEOUS) Inject subcutaneously. insulin regular, human (NOVOLIN R REGULAR U-100 INSULN INJECTION) by INJECTION(UNSPECIFIED PARENTERAL ROUTES) route. 34 units in the Am (Patient not taking: Reported on 02/03/2023) insulin NPH injection (HumuLIN N,NovoLIN N) 35 units in the Am 45 units in the PM nitroglycerin sublingual (NITROQUICK) 0.4 mg SL tablet Dissolve 1 tablet under the tongue as needed. for chest pain,every 5 min x3 1 Bottle of 25 3 insulin regular human (HUMULIN R REGULAR U-100 INSULN) 100 unit/mL injection Inject 24 Units subcutaneously daily with breakfast. (Patient taking differently: Inject 35 Units subcutaneously daily with breakfast.) 3 Vial 3 Lancets lancets Test blood sugar(s) BID times daily. Dx: Type 2 DM - Uncontrolled Insulin: Yes 100 Each 11 aspirin, enteric coated (ECOTRIN LOW STRENGTH) 81 mg EC tablet Take 1 tablet by mouth once daily. 0 No current facility-administered medications for this visit. SOCIAL HISTORY: Carlos is a former smoker. She presented today with her daughter. She is retired. REVIEW OF SYSTEMS Review of Systems OBJECTIVE: There were no vitals taken for this visit. PHYSICAL EXAM: General Examination BP 116/74 (BP Site: Left Arm, BP Position: Sitting, BP Cuff Size: Large Adult) Pulse 76 Resp 16 Wt 220 lb 3.8 oz (99.9 kg) SpO2 97% BMI 34.49 kg/m General Exam Neurological Exam Mental Status Carlos did not have restriction of her neck range of motion but did she did have discomfort with movement in any direction. 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 Babinski's were downgoing bilaterally. Sensation Carlos did not report numbness to light touch in any upper extremity dermatome on either side. Data Review IMAGING STUDIES: To bring a disc ASSESSMENT: Carlos unexpectedly had reflexes today which is surprising in the context of her diabetes and doesraise the possibility that she has myelopathy which is masked by her diabetes to a large extent. I am mindful of her history of impaired hand function. At the moment I did not discern any finding consistent with a radiculopathy. PLAN: I am going to suggest that Carlos undertake a course of physical therapy and that I see her again in about 1 month. And possibly considering the idea of a cervical decompression with or without fusion 1 must consider her important medical comorbidities. Carlos is going to ponder her preferences and I would like to reassess her and see if there is any progression of her findings over time. On the occasion of my next visit with Carlos would like to order cervical x-rays including flexion-extension films. Attestation: The following portions of the patient's history were reviewed, confirmed, and updated as necessary: allergies, current medications, past family history, past medical history, past socialhistory, past surgical history, problem list, HPI, and ROS obtained by others. Some elements may be copied from a previous office note and have been reviewed/updated where appropriate. All portions reflect current medical decision making from today. The clinical and radiographic findings as well as the risks, benefits and alternatives of treatmenthave been reviewed in detail with the patient. The patient was advised to call the office if symptoms worsen or new symptoms develop. The patient expressed understanding and is in agreement with plan. Olinda Chávez MD, PhD This note was partially generated using [employer] voice recognition system, and there may be some incorrect words, spellings, and punctuation that were not noted in checking the note before saving. documented in this encounterLake[facility]09-15-2023 History of Present illness Narrative* El Driver, DO - 03/04/2023 8:58 AM EDT Patient presents with: F/U 3 Month Immunizations: Flu vaccination HPI: Carlos Covarrubias is a 67 year old female who presents to the office today for review of health conditions. Concerns today: Neck pain, ddd and djd cervical spine, was seen by pain mgmt, she is being referred to spine surgeon due to the complexity per patient. Feels her neck is "heavy" and sometimes feels she has a difficult time holding it up well. Also with right shoulder pain and xrays showed AC joint arthritis and reduced ROM, not able to reach behind her well or lift up her shoulder. Had xrays in the last 1 month,no injuries. Knows need for fasting labs. Depression, feels much improved with the zoloft medication, has a lot of stress with husbands recent knee surgery, no SI or HI. Ms. Covarrubias has past history of diabetes. Since our last visit she denies excessive thirst or increased frequency of urination, chest pain or dyspnea , new or unusual visual symptoms, and low sugar/hypoglycemic reactions. Depression- yes, well controlled. Follows a diabetic diet some of the time. She is compliant with medication(s) and is tolerating med(s) without any side effects. She reports checking her glucose on a once a day schedule with sugars in the <150 range. Patient's last HgA1C was Hemoglobin A1C (%) Date Value 08/30/2022 6.7 11/24/2021 6.8 02/09/2021 7.0 11/10/2020 7.6 ) Last Ophthalmology exam was within the past 12 months Ms. Covarrubias reports history of hyperlipidemia. Current therapy includes atorvastatin (Lipitor) 40 mg. Denies side effects of muscle weakness or achiness. Her most recent lipid panels are reviewed. Cholesterol, Total (mg/dL) Date Value 11/24/2021 178 02/09/2021 176 Total Cholesterol, Nonfasting (mg/dL) Date Value 08/30/2022 192 HDL Cholesterol (mg/dL) Date Value 11/24/2021 38 02/09/2021 41 HDL Cholesterol, Nonfasting (mg/dL) Date Value 08/30/2022 48 LDL Cholesterol (mg/dL) Date Value 02/09/2021 90 LDL Cholesterol, Nonfasting (mg/dL) Date Value 08/30/2022 99 Triglyceride (mg/dL) Date Value 11/24/2021 252 02/09/2021 223 Triglycerides, Nonfasting (mg/dL) Date Value 08/30/2022 224 Ms. Covarrubias indicates a history of hypertension and states that she is feeling well and denies any symptoms referable to elevated blood pressure. Specifically denies headache, chest pain, palpitations, dyspnea, and peripheral edema. Patient denies any side effects of her medication(s) and is compliant with their regimen. Last 3 Encounter BP Readings: Date: BP: 03/04/2023 150/80 02/03/2023 130/62 01/13/2023 140/78 She watches her diet for sodium, low fat and low cholesterol some of the time. She does not check BP's generally. Carlos gets minimal exercise. 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 08/07/2011 Seborrheic Keratosis 10/23/2010 Skin tag 08/07/2011 Tobacco abuse 07/13/2013 Trigger finger b/l hands, has had surgeries Type II or unspecified type diabetes mellitus without mention of complication, not stated as uncontrolled Unspecified hereditary and idiopathic peripheral neuropathy PAST SURGICAL HISTORY Procedure Laterality Date CHOLECYSTECTOMY HX 1994 Cholecystectomy, laparoscopic COLONOSCOPY 02/19/2015 ESOPHAGOGASTRODUODENOSCOPY TRANSORAL DIAGNOSTIC 03/28/2013 EGD ESOPHAGOGASTRODUODENOSCOPY TRANSORAL DIAGNOSTIC 02/23/2017 EGD PAST SURGICAL HISTORY OF 1974 LEANDRO PAST SURGICAL HISTORY OF 1980 Bilateral salpingoophorectomy PAST SURGICAL HISTORY OF 1986 Lumbar laminectomy PAST SURGICAL HISTORY OF 2002- multiple right partial clavicle resection and first rib resection- septic arthritis PAST SURGICAL HISTORY OF 07/2016 back surgery Lumbar/ thoracic Social History Tobacco Use Smoking status: Former Packs/day: 0.50 Years: 45.00 Additional pack years: 0.00 Total pack years: 22.50 Types: Cigarettes Start date: 03/29/1967 Quit date: 08/18/2018 Years since quittin.5 Smokeless tobacco: Never Vaping Use Vaping Use: Never used Substance Use Topics Alcohol use: No Drug use: No FAMILY HISTORY Problem Relation Age of Onset Diabetes Mother Stroke Mother Coronary Artery Disease Sister Early 40's with finding of ASCVD Coronary Artery Disease Brother 2 brothers diagnosed in their 60's Cancer Brother One brother with brain cancer and another one with tumors "all over his body" Coronary Artery Disease Father ASCVD in his 80's Coronary Artery Disease Brother Cancer Brother Allergies: ALLERGIES Allergen Reactions Augmentin [Amoxicil* GI Upset Nausea, vomiting Biaxin [Clarithromy* GI Upset Metallic taste; can tolerate Zpak Byetta [Exenatide] Intolerance GI upset Glucophage [Metform* Intolerance GI upset Iodine Swelling myleogram dye Latex Unknown Omnicef [Cefdinir] GI Upset Nausea, vomiting Current Meds: gabapentin (NEURONTIN) 300 mg capsule Take 3 capsules by mouth daily at bedtime for 30 days. sertraline (ZOLOFT) 50 mg tablet Take 1 tablet by mouth once daily. ondansetron orally disintegrating (ZOFRAN ODT) 4 mg disintegrating tablet Take 1 tablet by mouth every 8 hours as needed for nausea/vomiting. atorvastatin (LIPITOR) 40 mg tablet Take 1 tablet by mouth once daily. glimepiride (AMARYL) 2 mg tablet Take 1 tablet by mouth daily with breakfast. lisinopril (ZESTRIL) 20 mg tablet Take 1.5 tablets by mouth once daily. traZODone (DESYREL) 100 mg tablet Take 2 tablets by mouth daily at bedtime. omeprazole (PRILOSEC) 40 mg capsule Take 1 capsule by mouth twice daily. Insulin Syringe-Needle U-100 (BD INSULIN SYRINGE UF) 0.5 mL 30 gauge x 1/2" inject with insulin Four times a day with each meal and at bedtime as directed blood sugar diagnostic (BLOOD GLUCOSE TEST) test strip Test blood sugar(s) 2 times daily. Dx: Type 2 DM - Uncontrolled E11.65 Insulin: Yes ACCU-CHEK GUIDE GLUCOSE METER USE DIRECTED Blood-Glucose Meter monitoring kit Glucose Meter of Choice - Kit - Dx: Type 2 DM - Uncontrolled E11.65 albuterol HFA (PROVENTIL HFA, VENTOLIN HFA) 90 mcg/actuation inhaler Inhale 2 Puffs as instructed every 6 hours as needed for wheezing/shortness of breath. insulin NPH human isophane (NOVOLIN N SUBCUTANEOUS) Inject subcutaneously. insulin regular, human (NOVOLIN R REGULAR U-100 INSULN INJECTION) by INJECTION(UNSPECIFIED PARENTERAL ROUTES) route. 34 units in the Am (Patient not taking: Reported on 02/03/2023) insulin NPH injection (HumuLIN N,NovoLIN N) 35 units in the Am 45 units in the PM nitroglycerin sublingual (NITROQUICK) 0.4 mg SL tablet Dissolve 1 tablet under the tongue as needed. for chest pain,every 5 min x3 insulin regular human (HUMULIN R REGULAR U-100 INSULN) 100 unit/mL injection Inject 24 Units subcutaneously daily with breakfast. (Patient taking differently: Inject 35 Units subcutaneously daily with breakfast.) Lancets lancets Test blood sugar(s) BID times daily. Dx: Type 2 DM - Uncontrolled E11.65 Insulin: Yes aspirin, enteric coated (ECOTRIN LOW STRENGTH) 81 mg EC tablet Take 1 tablet by mouth once daily. Review of Systems: The remainder of the review of systems is negative. PE: 03/04/23 0826 BP: 150/80 Pulse: 64 Resp: 16 Temp: 36.1 C (97 F) TempSrc: Left Tympanic Weight: 98.9 kg (218 lb) Gen: A&O, NAD, non-toxic appearing, Pleasant, cooperative HEENT: NT/AC, PERRLA, EOMs intact b/l, nares clear and patent b/l, pharynx without erythema, exudate or lesions. Uvula midline. MMM Neck: supple, No cervical LAD, no thyromegaly, no carotid bruits CV: RRR, normal S1 and S2, no murmurs, no gallops, no rubs, Pulses 2+ and symmetric in UE and LE b/l Lungs: normal respiratory effort, CTA b/l, no wheezing or rhonchi or rales Abd: soft, NT, ND, +BS, no hepatosplenomegaly MS: reduced ROM cervical spine and right shoulder with reduced internal rotation and abduction, + TTP over right shoulder AC joint Neuro: CN II-XII intact b/l, strength 5/5 b/l UE and LE, DTRs 2/4 UE and LE, sensation intact. Skin: warm, dry, intact, No rashes or lesions on exposed skin. Foot exam: Monofilament wnl on right and left feet. No edema ASSESSMENT/PLAN: 1. Need for influenza vaccination - ICD9: V04.81, ICD10: Z23 (primary diagnosis) - INFLUENZA VACCINE, PRSV FREE, AGE 65+ YR, HIGH DOSE, QUADRIVALENT (FLUZONE HIGH-DOSE) 2. Chronic right shoulder pain - ICD9: 719.41, 338.29, ICD10: M25.511, G89.29 Referral for therapy, f/u with orthopedics specialist if not improving, need for stretches at home - CONSULT TO PHYSICAL THERAPY 3. Arthralgia of right acromioclavicular joint - ICD9: 719.41, ICD10: M25.511 Referral for therapy, f/u with orthopedics specialist if not improving, need for stretches at home - CONSULT TO PHYSICAL THERAPY 4. DDD (degenerative disc disease), cervical - ICD9: 722.4, ICD10: M50.30 Referral for therapy, f/u with orthopedics specialist if not improving, need for stretches at home F/u with spine surgeon for opinion as scheduled. - CONSULT TO PHYSICAL THERAPY 5. Osteoarthritis of spine with radiculopathy, cervical region - ICD9: 721.0, ICD10: M47.22 Referral for therapy, f/u with orthopedics specialist if not improving, need for stretches at home F/u with spine surgeon for opinion as scheduled. - CONSULT TO PHYSICAL THERAPY 6. DM (diabetes mellitus), type 2 with neurological complications (HCC) - ICD9: 250.60, ICD10: E11.49 - Control undetermined, due for labs - Continue current medications - Blood glucose monitoring on a twice daily schedule - Counseled on healthy diet and regular exercise - Discussed need for and benefit of weight loss. BMI 34.14 kg/(m^2) - ALBUMIN/CREAT RATIO RND UR - GABAPENTIN 300 MG CAPSULE El Driver DO To ER if develops chest pain, shortness of breath, or severe worsening of symptoms. Discussed risks, benefits, alternatives, and potential side effects of medications. Patient expressed understanding and agreed with the plan. El Driver DO [address] [place] [address] documented in this encounterLakehealth [facility] Center08-24-2023 Miscellaneous Notes* Telephone Encounter - Eve Burdick - 02/10/2023 11:12 AM EDT Patient switched pharmacies and needs a new script sent to the [facility] in [place]. * Telephone Encounter - Eve Burdick - 02/10/2023 11:11 AM EDT Pharmacy verified in [facility] Patient has been identified by name and date of : Yes Patient aware RX will be sent to pharmacy. No need to notify patient. Patient phones for refill(s): Requested Prescriptions Pending Prescriptions Disp Refills gabapentin (NEURONTIN) 300 mg capsule 270 capsule 3 Sig: Take 3 capsules by mouth daily at bedtime for 30 days. Date of last office visit : 02/03/2023 Date of next office visit : 03/04/2023 Last 2 Encounter Wt Readings: Date: Wt: 02/03/2023 100 kg (220 lb 6.4 oz) 01/13/2023 99.3 kg (219 lb) Not applicable Please advise. Eve Desai Pss documented in this encounterLakehealth [facility]point [facility] Center2023 History of Present illness Narrative* Alysha Sol APRN.[employer]TER - 02/03/2023 7:19 AM EDT Chief Complaint Patient presents with: hospital f/up HPI Carlos Covarrubias is a 67 year old female who presents here today for Above Complaints. Carlos is an established patient of Dr. Villa SOSA. She is a new patient to me today. Concerns today.. ER follow-up --- [facility] ER visit on 01/20/23 d/t R upper back pain and shoulder pain. Given [place] and flexeril at ER. X-ray of c-spine, chest, and R shoulder were all unremarkable. Referred to follow up with Dr. Gillis, spine with [facility]. Given a sling in ER and sent home with scripts for [place] and flexeril. Today.. Pt reports follow-up with Dr. Gillis. MRI completed yesterday. Has follow-up with Dr. Gillis on Tuesday to discuss results and plan of care. Using TENs unit with great relief. Overall, feeling much better and pain is well managed currently. HTN -- She states compliant with current blood pressure medication(s): lisinopril 20 mg. . She does not check BP at home. She denies chest pain, shortness of breath, palpitations, dizziness, leg edema, headaches, or vision changes. Last 14 Encounter BP Readings: Date: BP: 02/03/2023 130/62 01/13/2023 140/78 08/30/2022 130/64 03/23/2022 122/68 11/23/2021 118/60 09/30/2021 118/56 05/19/2021 126/60 02/11/2021 120/60 11/21/2020 104/60 11/14/2020 126/62 11/11/2020 120/60 06/05/2020 122/68 01/27/2020 130/62 07/26/2019 148/70 DM-- Blood sugar readings have been anywhere from 50-300. Last HgA1c was 6.7 in August. Current regimen: amaryl, insulin 35 units in AM and 45 units in PM. Denies polyuria, polydipsia, numbness, tingling or pain in extremities, new or unusual visual symptoms, unintended weight changes, lightheadedness/dizziness, bowel changes/loose stools, chest pain ordyspnea Mood-- Stable. Started zoloft recently and reports feeling back to her normal self since. Tolerating well and working well. Past medical history, appointments, medications, allergies reviewed. 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 08/07/2011 Seborrheic Keratosis 10/23/2010 Skin tag 08/07/2011 Tobacco abuse 07/13/2013 Trigger finger b/l hands, has had surgeries Type II or unspecified type diabetes mellitus without mention of complication, not stated as uncontrolled Unspecified hereditary and idiopathic peripheral neuropathy Previous Surgical History PAST SURGICAL HISTORY Procedure Laterality Date CHOLECYSTECTOMY HX 1994 Cholecystectomy, laparoscopic COLONOSCOPY 02/19/2015 ESOPHAGOGASTRODUODENOSCOPY TRANSORAL DIAGNOSTIC 03/28/2013 EGD ESOPHAGOGASTRODUODENOSCOPY TRANSORAL DIAGNOSTIC 02/23/2017 EGD PAST SURGICAL HISTORY OF 1974 LEANDRO PAST SURGICAL HISTORY OF 1980 Bilateral salpingoophorectomy PAST SURGICAL HISTORY OF 1986 Lumbar laminectomy PAST SURGICAL HISTORY OF 2002- multiple right partial clavicle resection and first rib resection- septic arthritis PAST SURGICAL HISTORY OF 07/2016 back surgery Lumbar/ thoracic Family History FAMILY HISTORY Problem Relation Age of Onset Diabetes Mother Stroke Mother Coronary Artery Disease Sister Early 40's with finding of ASCVD Coronary Artery Disease Brother 2 brothers diagnosed in their 60's Cancer Brother One brother with brain cancer and another one with tumors "all over his body" Coronary Artery Disease Father ASCVD in his 80's Coronary Artery Disease Brother Cancer Brother Patient Allergies ALLERGIES Allergen Reactions Augmentin [Amoxicil* GI Upset Nausea, vomiting Biaxin [Clarithromy* GI Upset Metallic taste; can tolerate Zpak Byetta [Exenatide] Intolerance GI upset Glucophage [Metform* Intolerance GI upset Iodine Swelling myleogram dye Latex Unknown Omnicef [Cefdinir] GI Upset Nausea, vomiting Current Medications Current Outpatient Medications on File Prior to Visit Medication Sig sertraline (ZOLOFT) 50 mg tablet Take 1 tablet by mouth once daily. atorvastatin (LIPITOR) 40 mg tablet Take 1 tablet by mouth once daily. glimepiride (AMARYL) 2 mg tablet Take 1 tablet by mouth daily with breakfast. lisinopril (ZESTRIL) 20 mg tablet Take 1.5 tablets by mouth once daily. traZODone (DESYREL) 100 mg tablet Take 2 tablets by mouth daily at bedtime. omeprazole (PRILOSEC) 40 mg capsule Take 1 capsule by mouth twice daily. Insulin Syringe-Needle U-100 (BD INSULIN SYRINGE UF) 0.5 mL 30 gauge x 1/2" inject with insulin Four times a day with each meal and at bedtime as directed blood sugar diagnostic (BLOOD GLUCOSE TEST) test strip Test blood sugar(s) 2 times daily. Dx: Type 2 DM - Uncontrolled E11.65 Insulin: Yes ACCU-CHEK GUIDE GLUCOSE METER USE DIRECTED gabapentin (NEURONTIN) 300 mg capsule Take 3 capsules by mouth daily at bedtime for 30 days. Blood-Glucose Meter monitoring kit Glucose Meter of Choice - Kit - Dx: Type 2 DM - Uncontrolled E1165 albuterol HFA (PROVENTIL HFA, VENTOLIN HFA) 90 mcg/actuation inhaler Inhale 2 Puffs as instructed every 6 hours as needed for wheezing/shortness of breath. insulin NPH human isophane (NOVOLIN N SUBCUTANEOUS) Inject subcutaneously. insulin regular, human (NOVOLIN R REGULAR U-100 INSULN INJECTION) by INJECTION(UNSPECIFIED PARENTERAL ROUTES) route. 34 units in the Am insulin NPH injection (HumuLIN N,NovoLIN N) 35 units in the Am 45 units in the PM ondansetron orally disintegrating (ZOFRAN ODT) 4 mg disintegrating tablet Take 1 tablet by mouth every 8 hours as needed for Nausea/Vomiting. nitroglycerin sublingual (NITROQUICK) 0.4 mg SL tablet Dissolve 1 tablet under the tongue as needed. for chest pain,every 5 min x3 insulin regular human (HUMULIN R REGULAR U-100 INSULN) 100 unit/mL injection Inject 24 Units subcutaneously daily with breakfast. (Patient taking differently: Inject 35 Units subcutaneously daily with breakfast.) Lancets lancets Test blood sugar(s) BID times daily. Dx: Type 2 DM - Uncontrolled 65 Insulin: Yes aspirin, enteric coated (ECOTRIN LOW STRENGTH) 81 mg EC tablet Take 1 tablet by mouth once daily. No current facility-administered medications on file prior to visit. Social History Social History Tobacco Use Smoking status: Former Packs/day: 0.50 Years: 45.00 Additional pack years: 0.00 Total pack years: 22.50 Types: Cigarettes Start date: 03/29/1967 Quit date: 08/18/2018 Years since quittin.4 Smokeless tobacco: Never Vaping Use Vaping Use: Never used Substance Use Topics Alcohol use: No Drug use: No REVIEW OF SYSTEMS: as above Reviewed relevant PMHx, PSHx, Social Hx, current medications and allergies. Review of Symptoms REVIEW OF SYSTEMS See HPI. EXAM: BP 130/62 (BP Site: Left Arm, BP Position: Sitting, BP Cuff Size: Large Adult) Pulse 60 Resp 12 Wt 100 kg (220 lb 6.4 oz) BMI 34.52 kg/m General Appearance: Well appearing, alert, in no acute distress, well-hydrated, well nourished.. Skin: Skin color, texture, turgor normal, no suspicious rashes or lesions. Head: Normocephalic, no masses, lesions, tenderness or abnormalities. Back:no pain to palpation of vertebrae, good flexion and extension, good range of motion, no muscletenderness, reflexes are 2+ and symmetric, motor and sensory appear to be normal, negative SLR test, no evidence of scoliosis Lungs: Lungs clear to auscultation. No wheezing, rhonchi, rales.. Heart: RRR without murmur, gallop, or rubs. No ectopy. Extremities: No deformities, edema, skin discoloration, clubbing or cyanosis. Good capillary refill. . Musculoskeletal: No joint swelling, deformity, or tenderness. Health Maintenance List LUNG CANCER SCREENING Never done PNEUMOCOCCAL: 63+(3 - PPSV23 or PCV20) due on 03/01/2021 URINE ALBUMIN:CREATININE RATIO due on 11/10/2021 DILATED RETINAL EXAM due on 01/28/2022 MAMMOGRAM due on 01/29/2022 COVID-19 VACCINE(6 - Moderna series) due on 07/01/2022 INFLUENZA(1) due on 02/18/2023 HBA1C due on 03/02/2023 LDL CHOLESTEROL due on 08/31/2023 DIABETIC FOOT EXAM due on 08/31/2023 BP CONTROLLED (<130/80) due on 09/01/2023 ANNUAL PCP TEAM CHRONIC DISEASE VISIT due on 01/14/2024 COLORECTAL CANCER SCREENING due on 02/19/2025 DTAP,TDAP,TD(2 - Td or Tdap) due on 05/19/2028 BONE DENSITY Completed HEPATITIS C SCREENING Completed SHINGRIX VACCINE Completed ADVANCE DIRECTIVE DISCUSSION Discontinued ASSESSMENT/PLAN: 1. Upper back pain - ICD9: 724.5, ICD10: M54.9 (primary diagnosis) Continue with Dr. Gillis, we will request records to have on file. Continue with current regimen as giving good pain relief. 2. 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 Refilled. - SERTRALINE 50 MG TABLET 3. Nausea - ICD9: 787.02, ICD10: R11.0 Stable. Refilled. - ONDANSETRON 4 MG DISINTEGRATING TABLET 4. Mixed hyperlipidemia - ICD9: 272.2, ICD10: E78.2 - Control undetermined, due for labs - Continue current medications - Counseled on healthy diet and regular exercise - LIPID PANEL BASIC - COMP METABOLIC PANEL - CBC + DIFF 5. DM (diabetes mellitus), type 2 with neurological complications (HCC) - ICD9: 250.60, ICD10: E11.49 - Control undetermined, due for labs - Continue current medications - Follow up in 1 month, sooner should any other issues arise. - HGB A1C - COMP METABOLIC PANEL - CBC + DIFF 6. Primary hypertension - ICD9: 401.9, ICD10: I10 - Controlled - Home blood pressure readings controlled - Continue current medications - Recommend home blood pressure monitoring, to bring results to next visit - Encouraged sodium restriction, DASH or Mediterranean diet - Recommend regular aerobic exercise - Discussed need for and benefit of weight loss. BMI 34.52 kg/(m^2) RTO as scheduled, sooner if needed. Prescription instructions reviewed with patient as applicable. Potential red flag symptoms discussed with the patient. Reviewed appropriate action plan to take if red flag symptoms occur. Patient agreeable to treatment plan. Alysha Evans APRN.[employer]TER [address] [place] [address] documented in this encounterLakehealth [facility] Center08-11-2023 Miscellaneous Notes* Telephone Encounter - Alysha Sol APRN.CNP - 01/28/2023 3:34 PM EDT Noted. Will assess then. Thank you, Alysha Sol APRN.CNP * Telephone Encounter - Edwina Shepard - 01/28/2023 2:55 PM EDT Spoke with patient to inform her provider will need an appointment to order MRI if needed. 40 min hospital scheduled with AD on 02/03. Edwina Shepard * Telephone Encounter - Eve Bach - 01/28/2023 1:50 PM EDT Pt calling to ask about an MRI. She states she had an MRI scheduled in [place] but was told that oneis not an open MRI and the same size as ours. She wanted to just schedule it here and ask for medication to ease her anxiety when she does it. There is no order for the MRI anywhere. She thought it may have been ordered by us but could have been ordered by the ER. PT had a chest CT but that was not what she is talking about. It was an MRI to rule out a pinched nerve in her neck. Pt wanted to knowif Dr. Driver would be able to place the order. documented in this encounterLakehealth [facility]point [facility] Center08-11-2023 Miscellaneous Notes* Telephone Encounter - Lesa Hicks LPN - 01/28/2023 10:01 AM EDT Message to call office to schedule. * Telephone Encounter - Lesa Hicks LPN - 01/25/2023 9:01 AM EDT Message to call office to schedule. * Telephone Encounter - Lesa Hicks LPN - 01/14/2023 9:23 AM EDT Message to call office to schedule. * Telephone Encounter - Ronnie Mansfield - 01/13/2023 2:23 PM EDT Needs scheduled for consult behavorial Health documented in this encounterLakehealth Tripoint Medical Center08-07-2023 History of Present illness Narrative* Natalie Bah - 01/24/2023 5:00 PM EDT POPULATION HEALTH NAVIGATION OUTREACH Action/[facility] Called pt to schedule an appt in Pain Management. Transferred to PAIN Support: Patient Identified by Name and : YES, via phone Outreach Outcome/Action Spoke to patient / parent / legal guardian: Patient will return the call or ask for return call Did you use a PCP flex slot to schedule this appointment? No Reason for Outreach Care Gap or Scheduling/Wellness visits Payer: Payor: ALEX / Plan: [employer] PPO / Product Type: PPO / Care Gap Reviewed:: Specialty Scheduling Reminder: Reminder note to check Health Maintenance for items below Health Maintenance items due: LUNG CANCER SCREENING Never done PNEUMOCOCCAL: 63+(3 - PPSV23 or PCV20) due on 03/01/2021 URINE ALBUMIN:CREATININE RATIO due on 11/10/2021 DILATED RETINAL EXAM due on 01/28/2022 MAMMOGRAM due on 01/29/2022 COVID-19 VACCINE(6 - Moderna series) due on 07/01/2022 Navigation Signature: Natalie Bah January 24, 2023 5:01 PM documented in this encounterLakehealth [facility] Center08-04-2023 History of Present illness Narrative* Natalie Bah - 01/21/2023 3:57 PM EDT POPULATION HEALTH NAVIGATION OUTREACH Action/[facility] Support: Called pt to schedule an appt in Pain Management. Patient declined at this time. Will return call. Patient Identified by Name and : YES, via phone Outreach Outcome/Action Spoke to patient / parent / legal guardian: Patient will return the call or ask for return call Did you use a PCP flex slot to schedule this appointment? No Reason for Outreach Care Gap or Scheduling/Wellness visits Payer: Payor: ALEX / Plan: CINDY CRUZ PPO / Product Type: PPO / Care Gap Reviewed:: Specialty Scheduling Reminder: Reminder note to check Health Maintenance for items below Health Maintenance items due: LUNG CANCER SCREENING Never done PNEUMOCOCCAL: 63+(3 - PPSV23 or PCV20) due on 03/01/2021 URINE ALBUMIN:CREATININE RATIO due on 11/10/2021 DILATED RETINAL EXAM due on 01/28/2022 MAMMOGRAM due on 01/29/2022 COVID-19 VACCINE(6 - Moderna series) due on 07/01/2022 Navigation Signature: Natalie Bah January 21, 2023 3:57 PM documented in this encounterLakehealth [facility]point [facility] Center08-03-2023 Miscellaneous Notes* Telephone Encounter - Eve Spicer LPCC - 01/20/2023 3:32 PM EDT Behavioral Health Social Work Progress Note Patient identified for [facility] from: PCP Reason for referral: [facility] Assessment [facility] encounter type: Telephone Encounter Attempts to Outreach: 2 attempts Referral made: Psychiatry - Internal, Psychiatry - External, Psychology - Internal, Psychology - External Psychiatry-Internal referral type: Medication Management Psychology-Internal referral type: Therapy Psychology-External referral type: Therapy Psychiatry-External referral type: Medication Management Reason for external referral: Wait times at [facility] too long, Patient choice Patient Discharged?: No Patient reported that caregiver was able to meet their needs today?: N/A Phone call placed today that went to [employer]. Left my contact information and brief nature of call. If no response, sent patient a letter with resources. NIKO Tripp-S January 20, 2023 documented in this encounterLakehealth [facility]point [facility] Center07-31-2023 Miscellaneous Notes* Telephone Encounter - aHrriet Trujillo Cma - 01/17/2023 8:29 AM EDT Patient notified and verbalized understanding. Fax sent to pain management Harriet Trujillo Cma * Telephone Encounter - Femi Alarcon APRN.ROYA - 01/17/2023 8:01 AM EDT Please let patient know her labs are normal. Pinched nerves do not show on imaging so further CT's would not be indicated. I have sent a consult for pain management to Dr. Luz here in [place]. * Telephone Encounter - Carlos Kelley RN - 01/14/2023 1:03 PM EDT Pt called and is notified of results. Pt wondering why they didn't do a CT scan of her neck and upper back. About 2 mons ago, pt states she fell forward out of her bath tub and hit the wall and her chin/neck went down to her chest. Didn't have pain at the time but shortly after went somewhere (pt doesn't remember where) for the pain and she thinks she had xrays of her neck. Pt states since then when she bends her head down/chin to chest, she gets severe shooting pain down her neck into her upper back. States when that happens, it is hard to breathe and the pain is so severe it brings her to tears and she feels like she is going to vomit. Also it happens when she twists to her left. Describes the pain as excruciating and a 10/10 on the pain scale. Pt still having numbness and tingling downher right arm. States she can move her arm forward but when she wants to undo her bra, she is unable to do that. She is taking Tylenol 1000 mg and it helps the back and neck pain some. She is worriedshe has a pinched nerve. Pt told that behavioral health has attempted to reach her. Messaged them for pt to call her back. She promises to keep her phone on. Also pt does not want to go to [place] for[place] management. She wants to see someone here in [place]. Pt instructed if pain is that severe, she should go to the ER. Carlos Kelley RN * Telephone Encounter - Femi Alarcon APRN.CNP - 01/14/2023 12:47 PM EDT Please let patient know her CT is negative. documented in this encounterLake[facility]07-28-2023 History of Present illness Narrative* Alicia Perez RT(R) - 01/14/2023 11:20 AM EDT Radiology Service Progress Note PATIENT NAME: Carlos Covarrubias DATE OF SERVICE: January 14, 2023 TIME: 11:37 AM PATIENT IDENTITY VERIFICATION COMPLETED USING TWO (2) IDENTIFIERS: Name and Date of confirmedby patient verbally. FALL SCREENING: Has the patient had 2 falls in the last year or 1 fall with injury or currently using an Ambulatory Assistive Device (Walker, Cane, Wheelchair, Crutches, etc.)? No PATIENT GENDER DATA: Female. status: : No status: NO. PATIENT RELEVANT IMPLANT DATA REVIEWED: Not Applicable RADIOLOGY DEPARTMENT: CT; Exam(s) Completed: Brain PERIPHERAL IV DATA: Not applicable SIGNED BY: RT Sierra(R) January 14, 2023 11:37 AM documented in this encounterLakehealth [facility]07-27-2023 Miscellaneous Notes* Telephone Encounter - Eve Spicer LPCC - 01/13/2023 3:35 PM EDT Behavioral Health Social Work Progress Note Patient identified for [facility] from: PCP Reason for referral: [facility] Assessment [facility] encounter type: Telephone Encounter Attempts to Outreach: 1 attempt Referral made: Psychiatry - Internal, Psychiatry - External, Psychology - Internal, Psychology - External Psychiatry-Internal referral type: Medication Management Psychology-Internal referral type: Therapy Psychology-External referral type: Therapy Psychiatry-External referral type: Medication Management Patient Discharged?: No Patient reported that caregiver was able to meet their needs today?: N/A Phone call placed today, left a message with a female that answered the phone. Patient does not have MyChart set up. therapist will try to reach patient again if no return call. NIKO Tripp-S January 13, 2023 documented in this encounterLakehealth [facility]07-27-2023 Miscellaneous Notes* Addendum Note - Femi Alarcon APRN.CNP - 01/13/2023 2:13 PM EDTAddended by: FEMI ALARCON on: 01/13/2023 02:13 PM Modules accepted: Orders documented in this encounterLakehealth [facility]07-27-2023 Instructions* Patient Instructions* Femi Alarcon APRN.CNP - 01/13/2023 2:04 PM EDT Complete labwork Schedule CT Schedule with pain management Schedule with psychiatry and counselor Follow up in 4 weeks with PCP team Patient instructed to go to ER for worsening symptoms or she feels like harming herself or others. documented in this encounterLakehealth [facility]07-27-2023 History of Present illness Narrative* Femi Alarcon APRN.CNP - 01/13/2023 1:27 PM EDT Chief Complaint Patient presents with: Depression HPI Carlos Covarrubias is a 67 year old female who presents here today for Above Complaints.. Patient presents for worsening depression. Patient reports being out of her medications however shereports they were not helping. Patient has been on xanax, buspar, celexa, desvenlafaxine, duloxetine, escitalopram, fluoxetine, lorazepam, trazodone, and venlafaxine in the past. Denies SI/HI. Patient reports she is fatigued, has pain to lower and extremities with some numbness in her right arm. Patient reports she has not been seen for this pain before. Patient also reports problems with her memory and this is concerning for her. Patient reports beingshort tempered and easily frustrated. Past medical history, appointments, medications, allergies reviewed. 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 08/07/2011 Seborrheic Keratosis 10/23/2010 Skin tag 08/07/2011 Tobacco abuse 07/13/2013 Trigger finger b/l hands, has had surgeries Type II or unspecified type diabetes mellitus without mention of complication, not stated as uncontrolled Unspecified hereditary and idiopathic peripheral neuropathy Previous Surgical History PAST SURGICAL HISTORY Procedure Laterality Date CHOLECYSTECTOMY HX 1994 Cholecystectomy, laparoscopic COLONOSCOPY 02/19/2015 ESOPHAGOGASTRODUODENOSCOPY TRANSORAL DIAGNOSTIC 03/28/2013 EGD ESOPHAGOGASTRODUODENOSCOPY TRANSORAL DIAGNOSTIC 02/23/2017 EGD PAST SURGICAL HISTORY OF 1974 LEANDRO PAST SURGICAL HISTORY OF 1980 Bilateral salpingoophorectomy PAST SURGICAL HISTORY OF 1986 Lumbar laminectomy PAST SURGICAL HISTORY OF 2002- multiple right partial clavicle resection and first rib resection- septic arthritis PAST SURGICAL HISTORY OF 07/2016 back surgery Lumbar/ thoracic Family History FAMILY HISTORY Problem Relation Age of Onset Diabetes Mother Stroke Mother Coronary Artery Disease Sister Early 40's with finding of ASCVD Coronary Artery Disease Brother 2 brothers diagnosed in their 60's Cancer Brother One brother with brain cancer and another one with tumors "all over his body" Coronary Artery Disease Father ASCVD in his 80's Coronary Artery Disease Brother Cancer Brother Patient Allergies ALLERGIES Allergen Reactions Augmentin [Amoxicil* GI Upset Nausea, vomiting Biaxin [Clarithromy* GI Upset Metallic taste; can tolerate Zpak Byetta [Exenatide] Intolerance GI upset Glucophage [Metform* Intolerance GI upset Iodine Swelling myleogram dye Latex Unknown Omnicef [Cefdinir] GI Upset Nausea, vomiting Current Medications Current Outpatient Medications on File Prior to Visit Medication Sig ACCU-CHEK GUIDE GLUCOSE METER USE DIRECTED DULoxetine (CYMBALTA) 30 mg capsule Take 1 capsule by mouth once daily. gabapentin (NEURONTIN) 300 mg capsule Take 3 capsules by mouth daily at bedtime for 30 days. atorvastatin (LIPITOR) 40 mg tablet Take 1 tablet by mouth once daily. glimepiride (AMARYL) 2 mg tablet Take 1 tablet by mouth daily with breakfast. lisinopril (ZESTRIL, PRINIVIL) 20 mg tablet Take 1.5 tablets by mouth once daily. traZODone (DESYREL) 100 mg tablet Take 2 tablets by mouth daily at bedtime. omeprazole (PRILOSEC) 40 mg capsule Take 1 capsule by mouth twice daily. Blood-Glucose Meter monitoring kit Glucose Meter of Choice - Kit - Dx: Type 2 DM - Uncontrolled E11.65 Insulin Syringe-Needle U-100 (BD INSULIN SYRINGE UF) 0.5 mL 30 gauge x 1/2" inject with insulin Four times a day with each meal and at bedtime as directed blood sugar diagnostic (BLOOD GLUCOSE TEST) test strip Test blood sugar(s) 2 times daily. Dx: Type 2 DM - Uncontrolled E11.65 Insulin: Yes albuterol HFA (PROVENTIL HFA, VENTOLIN HFA) 90 mcg/actuation inhaler Inhale 2 Puffs as instructed every 6 hours as needed for wheezing/shortness of breath. insulin NPH human isophane (NOVOLIN N SUBCUTANEOUS) Inject subcutaneously. insulin regular, human (NOVOLIN R REGULAR U-100 INSULN INJECTION) by INJECTION(UNSPECIFIED PARENTERAL ROUTES) route. 34 units in the Am insulin NPH injection (HumuLIN N,NovoLIN N) 35 units in the Am 45 units in the PM Insulin Syringe-Needle U-100 0.5 mL 31 gauge x 5/16" syrg Inject with Insulin two times a day or asdirected. Reli-on brand preferred. Dx: E11.65 ondansetron orally disintegrating (ZOFRAN ODT) 4 mg disintegrating tablet Take 1 tablet by mouth every 8 hours as needed for Nausea/Vomiting. nitroglycerin sublingual (NITROQUICK) 0.4 mg SL tablet Dissolve 1 tablet under the tongue as needed. for chest pain,every 5 min x3 insulin regular human (HUMULIN R REGULAR U-100 INSULN) 100 unit/mL injection Inject 24 Units subcutaneously daily with breakfast. (Patient taking differently: Inject 35 Units subcutaneously daily with breakfast.) Lancets lancets Test blood sugar(s) BID times daily. Dx: Type 2 DM - Uncontrolled E11.65 Insulin: Yes aspirin, enteric coated (ECOTRIN LOW STRENGTH) 81 mg EC tablet Take 1 tablet by mouth once daily. No current facility-administered medications on file prior to visit. Social History Social History Tobacco Use Smoking status: Former Packs/day: 0.50 Years: 45.00 Total pack years: 22.50 Types: Cigarettes Start date: 03/29/1967 Quit date: 08/18/2018 Years since quittin.4 Smokeless tobacco: Never Vaping Use Vaping Use: Never used Substance Use Topics Alcohol use: No Drug use: No Review of Symptoms REVIEW OF SYSTEMS SEE HPI EXAM: BP 140/78 Pulse 80 Resp 16 Wt 99.3 kg (219 lb) SpO2 98% BMI 34.30 kg/m General Appearance: Disheveled, tearful throughout appointment. Neurologic: Positive findings: muscular weakness Left side weaker than right, abnormality of coordination fall at home. MMSE: 26/30 PHQ-9: 16 MAU:18 Health Maintenance List LUNG CANCER SCREENING Never done PNEUMOCOCCAL: 63+(3 - PPSV23 or PCV20) due on 03/01/2021 URINE ALBUMIN:CREATININE RATIO due on 11/10/2021 DILATED RETINAL EXAM due on 01/28/2022 MAMMOGRAM due on 01/29/2022 COVID-19 VACCINE(6 - Moderna series) due on 07/01/2022 INFLUENZA(1) due on 02/18/2023 HBA1C due on 03/02/2023 LDL CHOLESTEROL due on 08/31/2023 DIABETIC FOOT EXAM due on 08/31/2023 ANNUAL PCP TEAM CHRONIC DISEASE VISIT due on 08/31/2023 BP CONTROLLED (<130/80) due on 09/01/2023 COLORECTAL CANCER SCREENING due on 02/19/2025 DTAP,TDAP,TD(2 - Td or Tdap) due on 05/19/2028 BONE DENSITY Completed HEPATITIS C SCREENING Completed SHINGRIX VACCINE Completed ADVANCE DIRECTIVE DISCUSSION Discontinued ASSESSMENT/PLAN: 1. Pain in both lower extremities - ICD9: 729.5, ICD10: M79.604, M79.605 (primary diagnosis) - CONSULT TO PAIN MGT 2. Memory loss - ICD9: 780.93, ICD10: R41.3 - CONSULT TO NEUROLOGY - FOLATE SERUM - SYPHILIS TOTAL W/REFLEX - CT BRAIN WO IVCON 3. Current severe episode of major 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 features, unspecified whether recurrent (HCC) - ICD9: 296.23, ICD10: F32.2 - CONSULT TO NEUROLOGY - CBC + DIFF - COMP METABOLIC PANEL - CT BRAIN WO IVCON - CONSULT TO [facility] - SERTRALINE 50 MG TABLET -Discussed at length with patient importance of seeing psychiatry and counseling as patient has hadmultiple failed drug therapies with worsening depressive symptoms. 4. Left-sided weakness - ICD9: 728.87, ICD10: R53.1 - CT BRAIN WO IVCON 5. Fatigue, unspecified type - ICD9: 780.79, ICD10: R53.83 - TSH BLD - T3 BLD - T4 FREE/FREE THYROX - VITAMIN D 25 HYDROXY - VITAMIN B12 BLOOD Patient requested refills of all medications sent to [facility] due to [facility] no longer covered by her insurance. Femi Alarcon APRN.CLOTH STOCK SORTER documented in this encounterLakehealth [facility]07-26-2023 Miscellaneous Notes* Telephone Encounter - Marya Waterman RN - 01/12/2023 1:59 PM EDT Patient called crying and stating her symptoms of depression have been worsening over the last two months. She says she has been out of depression medication for weeks and it wasn't working anyway. She denies SI/HI. She has some physical symptoms of fatigue. She has occasional shortness of breath and feeling like her "heart is jumping". She denies SOB and chest pain today. Reviewed triage protocol guidelines with patient. Disposition: See PCP within 24 hours. Appointment scheduled tomorrow withFemi Alarcon LEGAL SUPPORT SPECIALIST. Marya Waterman RN GO TO THE EMERGENCY ROOM OR CALL 911 IF: * You develop any new symptoms * Your condition worsens * You are concerned or anxious about your condition for any other reason. If you have any questions, you can call Nurse health professional back. Reason for Disposition [1] Depression AND [2] worsening (e.g.,sleeping poorly, less able to do activities of daily living) Answer Assessment - Initial Assessment Questions 1. CONCERN: worsening depression symptoms over past 2 months 2. DEPRESSION SYMPTOM SCREENING: fatigue, sadness, crying, short of breath 3. RISK OF HARM - SUICIDAL IDEATION: NO 4. RISK OF HARM - HOMICIDAL IDEATION: NO 5. FUNCTIONAL IMPAIRMENT: Difficult to do daily activities due to decreased energy 6. SUPPORT: Lives with . Daughter lives nearby and is supportive 7. THERAPIST: Does not have a counselor 8. STRESSORS: No new stressors. drinks alcohol everyday and it aggravates her 9. ALCOHOL USE OR SUBSTANCE USE (DRUG USE): Does not drink or use drug 10. OTHER: "Do you have any other physical symptoms right now?" Fatigue, shortness of breath, occasional "heart jumping" 11. : NO Protocols used: [id number] documented in this encounterLakehealth [facility]point [facility] Center06-15-2023 Miscellaneous Notes* Telephone Encounter - Tasia Arias LPN - 12/02/2022 10:57 AM EDT Spoke with pt gave information provided. Pt voices understanding. * Telephone Encounter - El Driver DO - 12/01/2022 9:56 PM EDT Noted, okay to re try the Cymbalta. rx sent in as below- please notify patient El Driver DO The following approved medication requests have been transmitted electronically. Requested Prescriptions Signed Prescriptions Disp Refills DULoxetine (CYMBALTA) 30 mg capsule 90 capsule 1 Sig: Take 1 capsule by mouth once daily. Authorizing Provider: EL DRIVER DO * Telephone Encounter - Anette Iglesias LPN - 12/01/2022 11:16 AM EDT Pt was switched from cymbalta to pristiq, pt states she took pristiq for about 2-3 wks then stoppedtaking it bc it was causing headaches & some dizziness. Pt is asking if she should go back to taking cymbalta? OV note says pt said it wasn't really helping, pt states she was only taking it once daily most days instead of twice daily as directed. She would like to try it again. Please advise. Pt uses [facility]. Anette Iglesias LPN documented in this encounterLakehealth [facility] Center03-22-2023 Miscellaneous Notes* Telephone Encounter - Cathleen Hemphill RN - 09/08/2022 8:52 AM EDT [facility] Pharmacist contacted and given message below. Cathleen Hemphill RN * Telephone Encounter - El Driver DO - 09/07/2022 5:18 PM EDT She needs to start this cymbalta weaning process once she is already started on the pristiq new medication El L Driver, DO The following approved medication requests have been transmitted electronically. Requested Prescriptions Signed Prescriptions Disp Refills DULoxetine (CYMBALTA) 30 mg capsule 14 capsule 0 Sig: Take 1 tablet every other day for 2 weeks then stop medication, for weaning process. Authorizing Provider: EL DRIVER DO * Telephone Encounter - Ivy Lopez RN - 09/06/2022 2:58 PM EDT El with [facility] was calling in asking about Pts Cymbalta and Pristiq. There were 2 order put in for Cymbalta. From providers notes it looks like Pt will be transitioning off of the Cymbalta andon to the Pristiq. He was asking to be called with the full weaning process for the Cymbalta. He states she has 30 capsules with one refill and it says for the Pt to take 1 a day x2 weeks then decrease to one every other day, but does not say for how may days. Please call and let pharmacy know how many days the taper will last. documented in this encounterLakehealth [facility] Center03-15-2023 Miscellaneous Notes* Telephone Encounter - Natalia Urbano RN - 09/01/2022 10:33 AM EDT Patient calls to request the duloxetine 30 mg prescription be sent to [facility]. Sent to wrong pharmacy yesterday. Pended for review. Last OV: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 capsule Take 1 capsule by mouth twice daily. blood sugar diagnostic (BLOOD GLUCOSE TEST) test strip Test blood sugar(s) 2 times daily. Dx: Type 2 DM - Uncontrolled E11.65 Insulin: Yes Insulin Syringe-Needle U-100 0.5 mL 31 gauge x 5/16" syrg Inject with Insulin two times a day or asdirected. Reli-on brand preferred. Dx: E11.65 ondansetron orally disintegrating (ZOFRAN ODT) 4 mg disintegrating tablet Take 1 tablet by mouth every 8 hours as needed for Nausea/Vomiting. nitroglycerin sublingual (NITROQUICK) 0.4 mg SL tablet Dissolve 1 tablet under the tongue as needed. for chest pain,every 5 min x3 insulin regular human (HUMULIN R REGULAR U-100 INSULN) 100 unit/mL injection Inject 24 Units subcutaneously daily with breakfast. (Patient taking differently: Inject 35 Units subcutaneously daily with breakfast.) Blood-Glucose Meter monitoring kit Glucose Meter of Choice - Kit - Dx: Type 2 DM - Uncontrolled E11.65 Lancets lancets Test blood sugar(s) BID times daily. Dx: Type 2 DM - Uncontrolled E11.65 Insulin: Yes aspirin, enteric coated (ECOTRIN LOW STRENGTH) 81 mg EC tablet Take 1 tablet by mouth once daily. Insulin Syringe-Needle U-100 (BD INSULIN SYRINGE UF) 1/2 mL 30 x 1/2" Syrg inject with insulin Fourtimes a day with each meal and at bedtime as directed predniSONE (DELTASONE) 20 mg tablet Take 1 tablet by mouth once daily for 5 days. albuterol HFA (PROVENTIL HFA, VENTOLIN HFA) 90 mcg/actuation inhaler Inhale 2 Puffs as instructed every 6 hours as needed for wheezing/shortness of breath. Inhalational Spacing Device 1 Device one time only for 1 dose. gabapentin (NEURONTIN) 300 mg capsule Take 3 capsules by mouth daily at bedtime for 30 days. FAMILY HISTORY Problem Relation Age of Onset Diabetes Mother Stroke Mother Coronary Artery Disease Sister Early 40's with finding of ASCVD Coronary Artery Disease Brother 2 brothers diagnosed in their 60's Cancer Brother One brother with brain cancer and another one with tumors "all over his body" Coronary Artery Disease Father ASCVD in his 80's Coronary Artery Disease Brother Cancer Brother Social History Tobacco Use Smoking status: Former Packs/day: 0.50 Years: 45.00 Pack years: 22.50 Types: Cigarettes Start date: 03/29/1967 Quit date: 08/18/2018 Years since quittin.5 Smokeless tobacco: Never Vaping Use Vaping Use: Never used Substance Use Topics Alcohol use: No Drug use: No ASSESSMENT/PLAN: 1. Acute cough - ICD9: 786.2, ICD10: R05.1 (primary diagnosis) 2. Chest congestion - ICD9: 786.9, ICD10: R09.89 Low-dose prednisone daily for 5 days instructed to monitor blood sugars closely. Albuterol as needed. At this time lungs are clear so patient did not want the chest x-ray instructed her if anything changes or seems to be continuing she should follow-up right away. Prescription instructions reviewed with patient as applicable. Potential red flag symptoms discussed with the patient. Reviewed appropriate action plan to take if red flag symptoms occur. Patient agreeable to treatment plan. Genesis Carvalho APRN.ROYA documented in this encounterL[facility]10-04-2022 Miscellaneous Notes* Telephone Encounter - Natalia Urbano RN - 03/23/2022 2:35 PM EDT Patient called to review respiratory symptoms. Nurse triage completed. Protocol recommends see provider within 4 hours or PCP triage. Patient concerned with bronchitis or pneumonia and wanting CXR completed. Patient agreeable to come to [facility] for evaluation. Care advice reviewed. Patient verbalizes understanding. Reason for Disposition Wheezing is present Answer Assessment - Initial Assessment Questions 1. ONSET: 3-4 days ago 2. SEVERITY: Severe. Patient coughed the whole time on the phone and could hear wheezing. Denies SOB at rest. 3. SPUTUM: yellow 4. HEMOPTYSIS: No 5. DIFFICULTY BREATHING: Mild to occasionally moderate 6. FEVER: No 7. CARDIAC HISTORY: HTN 8. LUNG HISTORY: Denies asthma or pulmonary embolus. Emphysema and current smoker. 9. PE RISK FACTORS: No history of blood clots, major surgery, prolonged travel, or bedridden. 10. OTHER SYMPTOMS: Runny nose. Denies wheezing, or chest pain. 11. : NA 12. TRAVEL: No Protocols used: Cough - Acute Smaomimdir-HLIWC-OJ * Telephone Encounter - Eve Aleman - 03/23/2022 12:18 PM EDT Carlos is calling about uri symptoms she is having. She has had chest/nasal congestion since last . She did a Covid test on and Tuesday, but was negative. Lost her sense of taste and smell on Tuesday. She is looking for advice. documented in this encounterL[facility]10-04-2022 Miscellaneous Notes* Telephone Encounter - Zulma SneedVIRIDIANA - 03/23/2022 2:35 PM EDT JOSIAH (VV) 12/04 with CB No appointment scheduled Please advise. Thank you. Zulma VIRIDIANA Sneed * Telephone Encounter - Eve Desai Pss - 03/23/2022 12:13 PM EDT Pharmacy [facility] in [facility] Patient has been identified by name and date of : Yes Patient aware RX will be sent to pharmacy. No need to notify patient. Patient phones for refill(s): Requested Prescriptions Pending Prescriptions Disp Refills gabapentin (NEURONTIN) 300 mg capsule 90 capsule 3 Sig: Take 3 capsules by mouth daily at bedtime for 30 days. DULoxetine (CYMBALTA) 60 mg capsule 180 capsule 0 Sig: Take 1 capsule by mouth twice daily. omeprazole (PRILOSEC) 40 mg capsule 180 capsule 2 Sig: Take 1 capsule by mouth twice daily. Date of last office visit : 11/23/2021 Date of next office visit : Visit date not found Last 2 Encounter Wt Readings: Date: Wt: 11/23/2021 99.4 kg (219 lb 3.2 oz) 09/30/2021 99.2 kg (218 lb 9.6 oz) Please advise. Eve Desai Pss documented in this encounterL[facility]-17-[facility]22 Instructions* Patient Instructions* Drew Friedman MD - 12/04/2021 5:46 PM EDT FACT SHEET FOR PATIENTS, PARENTS, AND CAREGIVERS EMERGENCY USE AUTHORIZATION (EUA) OF PAXLOVID FOR CORONAVIRUS DISEASE 2019 (COVID-19) You are being given this Fact Sheet because your healthcare provider believes it is necessary to provide you with PAXLOVID for the treatment of ajvu-ru-htzdefox coronavirus disease (COVID-19) caused by the SARS-CoV-2 virus. This Fact Sheet contains information to help you understand the risks and benefits of taking the PAXLOVID you have received or may receive. The U.S. Food and Drug Administration (FDA) has issued an Emergency Use Authorization (EUA) to makePAXLOVID available during the COVID-19 pandemic (for more details about an EUA please see What is an Emergency Use Authorization? at the end of this document). PAXLOVID is not an FDA-approved medicine in the [place]. Read this Fact Sheet for information about PAXLOVID. Talk to your healthcareprovider about your options or if you have any questions. It is your choice to take PAXLOVID. What is COVID-19? COVID-19 is caused by a virus called a coronavirus. You can get COVID-19 through close contact withanother person who has the virus. COVID-19 illnesses have ranged from very imol-zl-vnnwsz, including illness resulting in . While information so far suggests that most COVID-19 illness is mild, serious illness can happen and maycause some of your other medical conditions to become worse. Older people and people of all ages with severe, long lasting (chronic) medical conditions like heart disease, lung disease, and diabetes,for example seem to be at higher risk of being hospitalized for COVID-19. What is PAXLOVID? PAXLOVID is an investigational medicine used to treat xwgg-eh-ausqzvir COVID-19 in adults and children [12 years of age and older weighing at least 88 pounds (40 kg)] with positive results of direct SARS-CoV-2 viral testing, and who are at high risk for progression to severe COVID-19, including hospitalization or . PAXLOVID is investigational because it is still being studied. There is limited information about the safety and effectiveness of using PAXLOVID to treat people with jasj-be-fnajkryk COVID-19. The FDA has authorized the emergency use of PAXLOVID for the treatment of xntk-ru-mfcgagmv COVID-19in adults and children [12 years of age and older weighing at least 88 pounds (40 kg)] with a positive test for the virus that causes COVID-19, and who are at high risk for progression to severe COVID-19, including hospitalization or , under an EUA. 1 Revised: 04 September 2021 What should I tell my healthcare provider before I take PAXLOVID? Tell your healthcare provider if you: Have any allergies Have liver or kidney disease Are or plan to become Are a child Have any serious illnesses Tell your healthcare provider about all the medicines you take, including prescription and mcvw-lis-bdqiqof medicines, vitamins, and herbal supplements. Some medicines may interact with PAXLOVID and may cause serious side effects. Keep a list of your medicines to show your healthcare provider and pharmacist when you get a new medicine. You can ask your healthcare provider or pharmacist for a list of medicines that interact with PAXLOVID. Do not start taking a new medicine without telling your healthcare provider. Your healthcare provider can tell you if it is safe to take PAXLOVID with other medicines. Tell your healthcare provider if you are taking combined hormonal contraceptive. PAXLOVID may affect how your control pills work. Females who are able to become should use another effective alternative form of contraception or an additional barrier method of contraception. Talk to your healthcare provider if you have any questions about contraceptive methods thatmight be right for you. How do I take PAXLOVID? PAXLOVID consists of 2 medicines: nirmatrelvir and ritonavir. Take 2 pink tablets of nirmatrelvir with 1 white tablet of ritonavir by mouth 2 times each day (in the morning and in the evening) for 5 days. For each dose, take all 3 tablets at the same time. If you have kidney disease, talk to your healthcare provider. You may need a different dose. Swallow the tablets whole. Do not chew, break, or crush the tablets. Take PAXLOVID with or without food. Do not stop taking PAXLOVID without talking to your healthcare provider, even if you feel better. If you miss a dose of PAXLOVID within 8 hours of the time it is usually taken, take it as soon as you remember. If you miss a dose by more than 8 hours, skip the missed dose and take the next dose atyour regular time. Do not take 2 doses of PAXLOVID at the same time. If you take too much PAXLOVID, call your healthcare provider or go to the nearest hospital emergency room right away. If you are taking a ritonavir-or cobicistat-containing medicine to treat hepatitis C or Human Immunodeficiency Virus (HIV), you should continue to take your medicine as prescribed by your healthcare provider. Talk to your healthcare provider if you do not feel better or if you feel worse after 5 days. Who should generally not take PAXLOVID? Do not take PAXLOVID if: You are allergic to nirmatrelvir, ritonavir, or any of the ingredients in PAXLOVID You are taking any of the following medicines: Alfuzosin Pethidine, propoxyphene Ranolazine Amiodarone, dronedarone, flecainide, propafenone, quinidine Colchicine Lurasidone, pimozide, clozapine Dihydroergotamine, ergotamine, methylergonovine Lovastatin, simvastatin Sildenafil (Revatio ) for pulmonary arterial hypertension (PAH) Triazolam, oral midazolam Apalutamide Carbamazepine, phenobarbital, phenytoin Rifampin Kulwinder s Wort (hypericum perforatum) Taking PAXLOVID with these medicines may cause serious or life-threatening side effects or affect how PAXLOVID works. These are not the only medicines that may cause serious side effects if taken with PAXLOVID. PAXLOVID may increase or decrease the levels of multiple other medicines. It is very important to tell your healthcare provider about all of the medicines you are taking because additional laboratory tests or changes in the dose of your other medicines may be necessary while you are taking PAXLOVID. Your healthcare provider may also tell you about specific symptoms to watch out for that may indicate that you need to stop or decrease the dose of some of your other medicines. What are the important possible side effects of PAXLOVID? Possible side effects of PAXLOVID are: Allergic Reactions. Allergic reactions can happen in people taking PAXLOVID, even after only 1 dose. Stop taking PAXLOVID and call your healthcare provider right away if you get any of the following symptoms of an allergic reaction: hives trouble swallowing or breathing swelling of the mouth, lips, or face throat tightness hoarseness skin rash Liver Problems. Tell your healthcare provider right away if you have any of these signs and symptoms of liver problems: loss of appetite, yellowing of your skin and the whites of eyes (jaundice), dark-colored urine, pale colored stools and itchy skin, stomach area (abdominal) pain. Resistance to HIV Medicines. If you have untreated HIV infection, PAXLOVID may lead to some HIV medicines not working as well in the future. Other possible side effects include: altered sense of taste diarrhea high blood pressure muscle aches These are not all the possible side effects of PAXLOVID. Not many people have taken PAXLOVID. Serious and unexpected side effects may happen. PAXLOVID is still being studied, so it is possible that all of the risks are not known at this time. What other treatment choices are there? Veklury (remdesivir) is FDA-approved for the treatment of ntmb-yu-gijbaeys COVID-19 in certain adults and children. Talk with your doctor to see if Veklury is appropriate for you. Like PAXLOVID, FDA may also allow for the emergency use of other medicines to treat people with COVID-19. Go to https://www.fda.gov/rmxcqabuz-jlkkupbjhxve-ctbiirmpypr/jxm-eoobu-wrjpfdorpq-and- policy-framework/udbhjaeyz-ady-okkjgxvqadfwf for information on the emergency use of other medicines that are authorized by FDA to treat people with COVID-19. Your healthcare provider may talk with you aboutclinical trials for which you may be eligible. It is your choice to be treated or not to be treated with PAXLOVID. Should you decide not to receive it or for your child not to receive it, it will not change your standard medical care. What if I am or ? There is paper novelty maker treating women or mothers with PAXLOVID. For a motherand unborn baby, the benefit of taking PAXLOVID may be greater than the risk from the treatment. Ifyou are , discuss your options and specific situation with your healthcare provider. It is recommended that you use effective barrier contraception or do not have sexual activity whiletaking PAXLOVID. If you are , discuss your options and specific situation with your healthcare provider. How do I report side effects with PAXLOVID? Contact your healthcare provider if you have any side effects that bother you or do not go away. Report side effects to [employer] at www.fda.gov/medglobalscholar.comtch or call 1-888-PCR7947 or you can reportside effects to [employer]. at the contact information provided below. Website Fax number Telephone number www.Fixmo How should I store PAXLOVID? Store PAXLOVID tablets at room temperature, between 68?F to 77?F (20?C to 25?C). How can I learn more about COVID-19? Ask your healthcare provider. Visit https://www.cdc.gov/COVID19. Contact your local or state public health department. What is an Emergency Use Authorization (EUA)? The [place] FDA has made PAXLOVID available under an emergency access mechanism called an Emergency Use Authorization (EUA). The EUA is supported by a Irrigation Equipment Mechanic of Health and Human Service (HHS) declaration that circumstances exist to justify the emergency use of drugs and biological productsduring the COVID-19 pandemic. PAXLOVID for the treatment of sjfr-sh-xavsyynn COVID-19 in adults and children [12 years of age andolder weighing at least 88 pounds (40 kg)] with positive results of direct SARS-CoV-2 viral testing, and who are at high risk for progression to severe COVID-19, including hospitalization or , has not undergone the same type of review as an FDA-approved product. In issuing an EUA under the COVID-19 public health emergency, the FDA has determined, among other things, that based on the total amount of scientific evidence available including data from adequate and well-controlled clinical trials, if available, it is reasonable to believe that the product may be effective for diagnosing, treating, or preventing COVID-19, or a serious or life-threatening disease or condition caused by COVID-19; that the known and potential benefits of the product, when used to diagnose, treat, or prevent such disease or condition, outweigh the known and potential risks of such product; and that there are no adequate, approved, and available alternatives. All of these criteria must be met to allow for the product to be used in the treatment of patients during the COVID-19 pandemic. The EUA for PAXLOVID is in effect for the duration of the COVID-19 declaration justifying emergency use of this product, unless terminated or revoked (after which the products may no longer be used under the EUA). Additional Information For general questions, visit the website or call the telephone number provided below. Website Telephone number wwwIndi-e PublishingWOSJV09unqbEo.GogoCoin (4-617-K24-TOQV) You can also go to www.enModus or call for more information. Pfizer Distributed by [employer] [place] [address] [id number] Revised: 04 September 2021 documented in this encounterL[facility]06-17-[facility]22 History of Present illness Narrative* Drew Friedman MD - 12/04/2021 4:01 PM EDT Telemedicine Evaluation for COVID-19 Infection Audio only was used for evaluation of this patient. Location of patient: [place] In lieu of an in person visit due to coronavirus 19 pandemic concerns, a phone visit was performed with patient. Patient is aware that I am not fully able to assess symptoms and do a full physical exam including vital signs at this time. Patient consents to the visit. SUBJECTIVE Carlos Covarrubias is a 66 year old female who presents with 2 days of symptoms that are improving. Took 2 at home COVID tests yesterday and today which were positive. Symptoms include: Fever (?100.4F): Yes 101.5 or Chills: Yes Cough: Yes-dry Shortness of breath: No or Difficulty breathing: No Fatigue: Yes Muscle aches: Yes Headache: Yes New loss of smell or taste: No Sore throat: Yes Nasal congestion: Yes or Rhinorrhea: Yes Nausea: No or Vomiting: No Diarrhea: Yes OTC meds/remedies that patient has tried: acetaminophen, zinc, vitamin b12, vitamin b3. High risk category assessment Age > 60 years old Hypertension Coronary artery disease DM type II COPD Exposures: Sick contacts? No Family or close contacts with confirmed/probable COVID-19 in last 14 days? No She reports that she quit smoking about 3 years ago. Her smoking use included cigarettes. She started smoking about 54 years ago. She has a 22.50 pack-year smoking history. She has never used smokeless tobacco. OBJECTIVE VIDEO EXAM (if available) Temp: 100 GENERAL: Patient able to talk in complete sentences. Alert. HEENT: sinuses tender to self-palpation and no cervical adenopathy by self-palpation PULMONARY: breathing comfortably on room air , coughing and no wheezing noted ASSESSMENT/PLAN (Z20.822) Encounter by telehealth for suspected COVID-19 (primary encounter diagnosis) - Meets symptom-based criteria for testing and is high risk. - Patient scheduled for testing at the time of visit. - Instructed to isolate pending test results - Discussed symptom monitoring and supportive care - Red flag symptoms requiring follow up discussed Will call tomorrow with results of her PCR test. If positive, will send order for Paxlovid and havepatient hold her Lipitor and trazodone while taking it. Informed it may make her cymbalta, PPI, anddiabetic medications/insulin less effective. Should check sugars 3 times per day prior to meals andcall if >250. Discussed possible side effects. Red flags for re-assessment reviewed with patientin detail. Nirmatrelvir/Ritonavir (Paxlovid) Eligibility and Patient Discussion [facility] Formulary Restriction Criteria: Adult outpatients 18 years and older with ALL of the following: [x] Patient has positive SARS-COV-2 viral test (PCR or antigen test) during current illness [x] Patient has symptoms for 5 days or less [x] Not requiring hospitalization at any time for management of COVID-19 [x] Not requiring supplemental oxygen or a change in baseline supplemental oxygen[x] Not utilized for pre-exposure or post-exposure prophylaxis for prevention of COVID-19 [x] Patient does not have severe renal impairment (eGFR < 30 mL/min) or severe hepatic impairment (Child-Meyers Class C) [x] Meeting patient criteria as below: [x] Older age (age >/= 65 years) OR [] 18 years and older with at least one of the following: [] Obesity or being overweight (BMI > 30) [] [] Chronic kidney diseases with eGFR > 30 mL/min and not requiring dialysis [] Diabetes [] Cardiovascular disease including hypertension [] COPD/other chronic respiratory disease [] Sickle cell disease [] Neurodevelopmental disorder (e.g. cerebral palsy) or other conditions that confer medical complexity (e.g. genetic or metabolic syndromes and severe congenital abnormalities) [] Medical related technological dependence (e.g. tracheostomy, gastrostomy, or positive pressure ventilation (not related to COVID-19)) OR [] 18 years and older with immunosuppressive disease or immunosuppressive therapy defined as: [] Immune-mediated inflammatory disease (rheumatoid arthritis, psoriatic arthritis, ankylosing spondylitis, psoriasis, systemic lupus erythematous, idiopathic inflammatory myositis, systemic sclerosis, primary systemic vasculitis, Sjogren s syndrome, inflammatory bowel disease) AND receiving at least one of the following: [] Prednisone (equivalent of > 10 mg daily at time of infusion) [] Rituximab [] 5-ASA derivatives (e.g., sulfasalazine, mesalamine) [] Solid Organ Transplant recipients [] Post-transplant AND on immunosuppression [] Cancer center patients AND at least one of the following: [] On treatment with anti-B cell monoclonal antibodies (e.g., Rituximab, Obinutuzumab, Ofatumumab) [] On treatment with high-intensity chemotherapy regimen [] Myeloablative hematopoietic stem cell transplant recipients within 6 months of transplant or on systemic therapy for itsrx-tiqpvs-bafn disease [] CAR T-cell/other cellular therapy recipients within 6 months of infusion [] Hypogammaglobulinemia due to cancer/hematologic disease or its treatment [] Primary immunodeficiency disorder (including common variable immuno immunodeficiency disorder and selective antibody deficiency disorder) Criteria above are met: Yes Date of Positive Test:12/03/2021 Date of Symptom Onset: 12/02/2021 Patient received COVID vaccine: Yes Drug-Drug interactions reviewed: Yes. Drug interactions were identified and the following actions were taken See above. I have discussed the use of the investigational therapeutic, nirmatrelvir/ritonavir, for the treatment of mild to moderate COVID-19 and its use under Emergency Use Authorization with the patient. The patient was informed that nirmatrelvir/ritonavir is not an FDA approved drug and that it is authorized for use under this Emergency Use Authorization. The patient was also informed of the significant known benefits and potential risks of nirmatrelvir/ritonavir, and the extent to which such potential risks and benefits are unknown. The patient was informed that there is mandatory reporting of all medication errors and serious adverse events potentially related to nirmatrelvir/ritonavir treatment within 7 calendar days from the onset of the event and that events up to 28 days after completion of therapy need to be reported. The discussion included alternatives to receiving nirmatrelvir/rit onavir, including clinical trials, and potential the risks and benefits of those alternatives. The patient was provided electronically with the "Fact Sheet for Patients, Parents and Caregivers". The patient was also instructed that in addition to the treatment with nirmatrelvir/ritonavir, he/she should continue to self-isolate and use infection control measures (e.g., wear mask, isolate, social distance, avoid sharing personal items, clean and disinfect "high touch" surfaces, and frequent h andwashing) according to CDC guidelines. The patient stated understanding and gave verbal consent to proceeding with nirmatrelvir/ritonavir treatment. Drew Friedman MD December 04, 2021 5:46 PM This patient encounter involved the screening or treatment of novel coronavirus infection (COVID-19). I spent a total of 25 minutes on the date of the service which included preparing to see the patient, completing clinical documentation, obtaining and/or reviewing separately obtained history, performing a medically appropriate examination, counseling and educating the patient/family/caregiver and ordering medications, tests, or procedures. documented in this encounterL[facility]06-17-2022 Miscellaneous Notes* Telephone Encounter - Farzana Mccall LPN - 12/04/2021 1:22 PM EDT Patient telephoned. Agreeable to virtual but doesn't;t have access to. Requesting telephone call visit. Scheduled for 4pm. Farzana Mccall LPN * Telephone Encounter - Drew Friedman MD - 12/04/2021 1:02 PM EDT Patient is high risk and would qualify for monoclonal antibody treatment either with oral medication of IV infusion. If she would like to discuss this further, would recommend VV today. * Telephone Encounter - Natalia Urbano RN - 12/04/2021 11:48 AM EDT Patient calls to notify provider that she tested positive for Covid 19 with 2 at home tests (last night and this morning). Symptoms started yesterday and include: runny nose, sneezing, sore throat, mild headache, body aches/pains, non-productive cough, and temperature 101.5 yesterday. Afebrile today. Denies SOB and chest pain. Reviewed CDC guidelines and care recommendations. Patient verbalizes understanding. Patient is asking if she would be a candidate for Paxlovid? Natalia Urbano RN documented in this encounterL[facility]06-08-2022 Miscellaneous Notes* Telephone Encounter - Tasia Arias LPN - 11/25/2021 6:01 PM EDT Spoke with pt gave information provided. Pt voices understanding. * Telephone Encounter - Alysha Evans APRN.CNP - 11/25/2021 5:36 PM EDT Please let patient know that the additional blood work that was added was all WNL as well -- including thyroid function and Vitamin B12. Thank you, Alysha Evans APRN.ROYA documented in this encounterL[facility]06-08-2022 Miscellaneous Notes* Telephone Encounter - Tasia Arias LPN - 11/25/2021 4:52 PM EDT Pt aware of such. * Telephone Encounter - Alysha Evans APRN.CNP - 11/25/2021 3:46 PM EDT Noted. Please have patient continue this current insulin regimen. Will discuss further of adjustment is needed at upcoming appointment. Thank you, Alysha Evans APRN.CNP * Telephone Encounter - Tasia Arias LPN - 11/25/2021 1:26 PM EDT Spoke with client services they are going to get all thyroid labs added out of blood they have and are going to try for the b12 also. They could not give this nurse a reason why they were not drawn with the others. Spoke wit pt gave information provided. She states she can not take metformin makes her sick. She takes 35 of insulin r with 35 units of insulin n in am to equal 70 units and takes 45 units of n at night. * Telephone Encounter - Alysha Evans APRN.CNP - 11/25/2021 12:56 PM EDT Please look into why the rest of blood work was not drawn.. including thyroid blood work and Vitamin B12? This was all ordered on the same date. Please see if we can add on or need a new draw. Please let patient know that the blood work that did result overall look good. Urine culture was unremarkable. No concerns for significant bacteria or signs of UTI. If symptoms are improving with the Macrobid antibiotic, she can still continue. HgA1c is improved from prior at 6.8. The fasting blood glucose was slightly elevated at 122 -- again more improved from priors. Please verify current DM regimen with patient and update medication list : is it Humulin 35 units in the AM and 45 units in the PM?? No metformin? Does she follow with endocrinology? Lipid panel -- triglycerides are elevated. Otherwise, the rest of the panel looks pretty good. I recommend routine exercise when able and a healthy diet with lean protein and numerous green leafy vegetables. Thank you, Alysha Evans APRN.CNP documented in this encounterLake[facility]05-04-2022 Miscellaneous Notes* Telephone Encounter - Racheal Candelario 10/21/2021 12:59 PM EDT Patient has been identified by name and date of : Yes Pending Prescriptions Disp Refills DULOXETINE 60 MG CAPSULE,DELAYED RELEASE 180 capsule 0 Sig: Take 1 capsule by mouth twice daily. YAS: No LISINOPRIL 20 MG TABLET 135 tablet 3 Sig: Take 1.5 tablets by mouth once daily. YAS: No JOSIAH-05/19/21 Labs-02/09/21 NOV-none RX INSTRUCTIONS: Patient aware RX will be sent to pharmacy. No need to notify patient. Racheal Wrigth documented in this encounterLake[facility]04-13-2022 History of Present illness Narrative* Amanda Jovel RT(R) - 09/30/2021 2:20 PM EDT Radiology Service Progress Note PATIENT NAME: Carlos Covarrubias DATE OF SERVICE: September 30, 2021 TIME: 2:25 PM PATIENT IDENTITY VERIFICATION COMPLETED USING TWO (2) IDENTIFIERS: Name and Date of confirmedby patient verbally. FALL SCREENING: Has the patient had 2 falls in the last year or 1 fall with injury or currently using an Ambulatory Assistive Device (Walker, Cane, Wheelchair, Crutches, etc.)? No PATIENT GENDER DATA: Female. status: : No status: NO. PATIENT RELEVANT IMPLANT DATA REVIEWED: Not Applicable RADIOLOGY DEPARTMENT: General X-ray: Exam(s) Completed: Chest X-Ray PERIPHERAL IV DATA: Not applicable SIGNED BY: RT Erica(R) September 30, 2021 2:25 PM documented in this encounterL[facility] History of Present illness Narrative* Elizabeth De Paz APRN.ROYA - 09/30/2021 1:59 PM EDT HPI Carlos Covarrubias is a 66 year old female who presents today for CC of cough, chest congestion, body aches, fever, chills. This all started 4 days ago. She is also having nasal congestion and drainage. She has used tylenol without relief. Former smoker. BP 118/56 Pulse 91 Temp 37.4 C (99.3 F) Resp 20 Wt 99.2 kg (218 lb 9.6 oz) SpO2 97% BMI34.24 kg/m Social History Tobacco Use Smoking status: Former Smoker Packs/day: 0.50 Years: 45.00 Pack years: 22.50 Types: Cigarettes Start date: 03/29/1967 Quit date: 08/18/2018 Years since quittin.1 Smokeless tobacco: Never Used Vaping Use Vaping Use: Never used Substance Use Topics Alcohol use: No Drug use: No PAST MEDICAL HISTORY Diagnosis Date ASCVD (arteriosclerotic cardiovascular disease) Atherosclerosis of left carotid artery 06/2013 Atherosclerosis of right carotid artery 06/2013 DDD (degenerative disc disease), cervical chronic neck pain Depressive disorder, not elsewhere classified Esophageal reflux 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 08/07/2011 Seborrheic Keratosis 10/23/2010 Skin tag 08/07/2011 Tobacco abuse 07/13/2013 Trigger finger b/l hands, has had surgeries Type II or unspecified type diabetes mellitus without mention of complication, not stated as uncontrolled Unspecified hereditary and idiopathic peripheral neuropathy I have confirmed and edited as necessary, the [facility] ASSESSMENT/PLAN: 1. Viral illness - ICD9: 079.99, ICD10: B34.9 (primary diagnosis) - Discussed viral etiology and rationale for treatment. - Symptomatic treatment with prn analgesia - Supportive care with fluids and rest Home isolation Testing ordered Comfort measures discussed - see patient instructions. When to seek higher level of care Notified in 24-48 hours with results, available on [facility] - COVID WITH FLUA+B, ROUTINE 2. Sore throat - ICD9: 462, ICD10: J02.9 - suspect viral - Alere Strep Test negative, no culture pending - STREP A MOLECULAR (POC) 3. Suspected COVID-19 virus infection - ICD9: V01.79, ICD10: Z20.822 Rapid negative Suspect influenza comfort measures discussed - COVID WITH FLUA+B, ROUTINE 4. Cough - ICD9: 786.2, ICD10: R05.9 Albuterol inhaler - XR CHEST 2V FRONTAL/LAT RESULT: Lines, tubes, and devices: None. Lungs and pleura: The lungs are clear. No pulmonary infiltrates. No pleural effusion. No pneumothorax. Cardiomediastinal silhouette: Normal cardiomediastinal silhouette. Bones and soft tissues: Status post resection the proximal right clavicular shaft. Degenerative changes in the thoracic spine. IMPRESSION: 1. No acute radiographic abnormality. 2. Status post remote resection of the proximal right clavicular shaft. Interpreted by : MONCHO MENDOZA MD Diagnosis and treatment plan were discussed and questions were answered to the patient's satisfaction. Pt acknowledged understanding of concepts and follow up plan. Specific signs and symptoms that would indicate the need for higher level of care were discussed indetail warranting prompt ER evaluation. Elizabeth De Paz APRN.CNP documented in this encounterL[facility]06[facility] Miscellaneous Notes* Telephone Encounter - Ni Dodge Pss - 11/19/2020 10:35 AM EDT Contacted patient and she stated she will call and try to get in with Dr Bateman in the meantime. Ni Dodge Pss * Telephone Encounter - Radha Tony APRN.CNP - 11/11/2020 2:20 PM EDT She is fine to schedule for March as she wants to establish with a slitting and shipping supervisor in the clinic. I would tell her to schedule follow-up with Dr. Bateman as recommended on her hospital discharge. Thanks, Radha Tony APRN.CNP * Telephone Encounter - El Driver DO - 11/11/2020 2:15 PM EDT I didn't refer patient for this. Please clarify with Radha Tony CNP whom saw patient, how earlyshe needs to be seen. El Driver DO * Telephone Encounter - Ni Dodge Pss - 11/11/2020 11:11 AM EDT Scheduled patient with Cardiology in [place]. Next available is March and patient refused to schedule in another location for a sooner appointment. Please advise. 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 017 Oral neoplasm: mid post hard palate 08/07/2011 01/04/2017 Seborrheic Keratosis 10/23/2010 01/04/2017 GRANULOMA ANNULARE///ERYTHEMATOUS COND NEC 05/0301/04/2017 Shortness of breath 09/21/2006 01/04/2017 Open wound of other and unsp ecified parts of trunk, without mention of complication 03/27/2004 01/04/2017 documented as of this encounter (statuses as of 09/30/2021) [facility] of [facility] illness Narrative* Problem Noted Date Resolved Date Screening for unspecified condition 02/19/2015 02/19/2015 Plantar wart of left foot: plantar 1st MTP 08/0701/04/2017 Intradermal Nevus: Melanocytic vs Neuroid Nevus 08/07/2011 01/04/2017 R/O Neurofibroma: R mid lower buttock 08/07/2011 01/04/2017 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 superficialis: R mid lower buttock 08/07/2011 01/04/2017 Skin tag 08/07/2011 01/04/2017 Oral lesion: mid post hard palate 08/07/2011 01/04/2017 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 017 Oral neoplasm: mid post hard palate 08/07/2011 01/04/2017 Seborrheic Keratosis 10/23/2010 01/04/2017 GRANULOMA ANNULARE///ERYTHEMATOUS COND NEC 05/0301/04/2017 Shortness of breath 09/21/2006 01/04/2017 Open wound of other and unsp ecified parts of trunk, without mention of complication 03/27/2004 01/04/2017 documented as of this encounter (statuses as of 10/03/2021) [facility] Narrative* Problem Noted Date Resolved Date Screening for unspecified condition 02/19/2015 02/19/2015 Plantar wart of left foot: plantar 1st MTP 08/0701/04/2017 Intradermal Nevus: Melanocytic vs Neuroid Nevus 08/07/2011 01/04/2017 R/O Neurofibroma: R mid lower buttock 08/07/2011 01/04/2017 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 superficialis: R mid lower buttock 08/07/2011 01/04/2017 Skin tag 08/07/2011 01/04/2017 Oral lesion: mid post hard palate 08/07/2011 01/04/2017 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 017 Oral neoplasm: mid post hard palate 08/07/2011 01/04/2017 Seborrheic Keratosis 10/23/2010 01/04/2017 GRANULOMA ANNULARE///ERYTHEMATOUS COND NEC 05/0301/04/2017 Shortness of breath 09/21/2006 01/04/2017 Open wound of other and unsp ecified parts of trunk, without mention of complication 03/27/2004 01/04/2017 documented as of this encounter (statuses as of 10/21/2021) [facility] Narrative* Problem Noted Date Resolved Date Screening for unspecified condition 02/19/2015 02/19/2015 Plantar wart of left foot: plantar 1st MTP 08/0701/04/2017 Intradermal Nevus: Melanocytic vs Neuroid Nevus 08/07/2011 01/04/2017 R/O Neurofibroma: R mid lower buttock 08/07/2011 01/04/2017 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 superficialis: R mid lower buttock 08/07/2011 01/04/2017 Skin tag 08/07/2011 01/04/2017 Oral lesion: mid post hard palate 08/07/2011 01/04/2017 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 017 Oral neoplasm: mid post hard palate 08/07/2011 01/04/2017 Seborrheic Keratosis 10/23/2010 01/04/2017 GRANULOMA ANNULARE///ERYTHEMATOUS COND NEC 05/0301/04/2017 Shortness of breath 09/21/2006 01/04/2017 Open wound of other and unsp ecified parts of trunk, without mention of complication 03/27/2004 01/04/2017 documented as of this encounter (statuses as of 11/25/2021) [facility] Narrative* Problem Noted Date Resolved Date Screening for unspecified condition 02/19/2015 02/19/2015 Plantar wart of left foot: plantar 1st MTP 08/0701/04/2017 Intradermal Nevus: Melanocytic vs Neuroid Nevus 08/07/2011 01/04/2017 R/O Neurofibroma: R mid lower buttock 08/07/2011 01/04/2017 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 superficialis: R mid lower buttock 08/07/2011 01/04/2017 Skin tag 08/07/2011 01/04/2017 Oral lesion: mid post hard palate 08/07/2011 01/04/2017 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 017 Oral neoplasm: mid post hard palate 08/07/2011 01/04/2017 Seborrheic Keratosis 10/23/2010 01/04/2017 GRANULOMA ANNULARE///ERYTHEMATOUS COND NEC 05/0301/04/2017 Shortness of breath 09/21/2006 01/04/2017 Open wound of other and unsp ecified parts of trunk, without mention of complication 03/27/2004 01/04/2017 documented as of this encounter (statuses as of 11/25/2021) [facility] Narrative* Problem Noted Date Resolved Date Screening for unspecified condition 02/19/2015 02/19/2015 Plantar wart of left foot: plantar 1st MTP 08/0701/04/2017 Intradermal Nevus: Melanocytic vs Neuroid Nevus 08/07/2011 01/04/2017 R/O Neurofibroma: R mid lower buttock 08/07/2011 01/04/2017 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 superficialis: R mid lower buttock 08/07/2011 01/04/2017 Skin tag 08/07/2011 01/04/2017 Oral lesion: mid post hard palate 08/07/2011 01/04/2017 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 017 Oral neoplasm: mid post hard palate 08/07/2011 01/04/2017 Seborrheic Keratosis 10/23/2010 01/04/2017 GRANULOMA ANNULARE///ERYTHEMATOUS COND NEC 05/0301/04/2017 Shortness of breath 09/21/2006 01/04/2017 Open wound of other and unsp ecified parts of trunk, without mention of complication 03/27/2004 01/04/2017 documented as of this encounter (statuses as of 12/04/2021) [facility] Narrative* Problem Noted Date Resolved Date Screening for unspecified condition 02/19/2015 02/19/2015 Plantar wart of left foot: plantar 1st MTP 08/0701/04/2017 Intradermal Nevus: Melanocytic vs Neuroid Nevus 08/07/2011 01/04/2017 R/O Neurofibroma: R mid lower buttock 08/07/2011 01/04/2017 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 superficialis: R mid lower buttock 08/07/2011 01/04/2017 Skin tag 08/07/2011 01/04/2017 Oral lesion: mid post hard palate 08/07/2011 01/04/2017 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 017 Oral neoplasm: mid post hard palate 08/07/2011 01/04/2017 Seborrheic Keratosis 10/23/2010 01/04/2017 GRANULOMA ANNULARE///ERYTHEMATOUS COND NEC 05/0301/04/2017 Shortness of breath 09/21/2006 01/04/2017 Open wound of other and unsp ecified parts of trunk, without mention of complication 03/27/2004 01/04/2017 documented as of this encounter (statuses as of 02/05/2022) [facility] Narrative* Problem Noted Date Resolved Date Screening for unspecified condition 02/19/2015 02/19/2015 Plantar wart of left foot: plantar 1st MTP 08/0701/04/2017 Intradermal Nevus: Melanocytic vs Neuroid Nevus 08/07/2011 01/04/2017 R/O Neurofibroma: R mid lower buttock 08/07/2011 01/04/2017 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 superficialis: R mid lower buttock 08/07/2011 01/04/2017 Skin tag 08/07/2011 01/04/2017 Oral lesion: mid post hard palate 08/07/2011 01/04/2017 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 017 Oral neoplasm: mid post hard palate 08/07/2011 01/04/2017 Seborrheic Keratosis 10/23/2010 01/04/2017 GRANULOMA ANNULARE///ERYTHEMATOUS COND NEC 05/0301/04/2017 Shortness of breath 09/21/2006 01/04/2017 Open wound of other and unsp ecified parts of trunk, without mention of complication 03/27/2004 01/04/2017 documented as of this encounter (statuses as of 03/08/2022) [facility]arrative* Problem Noted Date Resolved Date Screening for unspecified condition 02/19/2015 02/19/2015 Plantar wart of left foot: plantar 1st MTP 08/0701/04/2017 Intradermal Nevus: Melanocytic vs Neuroid Nevus 08/07/2011 01/04/2017 R/O Neurofibroma: R mid lower buttock 08/07/2011 01/04/2017 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 superficialis: R mid lower buttock 08/07/2011 01/04/2017 Skin tag 08/07/2011 01/04/2017 Oral lesion: mid post hard palate 08/07/2011 01/04/2017 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 017 Oral neoplasm: mid post hard palate 08/07/2011 01/04/2017 Seborrheic Keratosis 10/23/2010 01/04/2017 GRANULOMA ANNULARE///ERYTHEMATOUS COND NEC 05/0301/04/2017 Shortness of breath 09/21/2006 01/04/2017 Open wound of other and unsp ecified parts of trunk, without mention of complication 03/27/2004 01/04/2017 documented as of this encounter (statuses as of 03/23/2022) [facility] Narrative* Problem Noted Date Resolved Date Screening for unspecified condition 02/19/2015 02/19/2015 Plantar wart of left foot: plantar 1st MTP 08/0701/04/2017 Intradermal Nevus: Melanocytic vs Neuroid Nevus 08/07/2011 01/04/2017 R/O Neurofibroma: R mid lower buttock 08/07/2011 01/04/2017 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 superficialis: R mid lower buttock 08/07/2011 01/04/2017 Skin tag 08/07/2011 01/04/2017 Oral lesion: mid post hard palate 08/07/2011 01/04/2017 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 017 Oral neoplasm: mid post hard palate 08/07/2011 01/04/2017 Seborrheic Keratosis 10/23/2010 01/04/2017 GRANULOMA ANNULARE///ERYTHEMATOUS COND NEC 05/0301/04/2017 Shortness of breath 09/21/2006 01/04/2017 Open wound of other and unsp ecified parts of trunk, without mention of complication 03/27/2004 01/04/2017 documented as of this encounter (statuses as of 03/23/2022) [facility] Narrative* Problem Noted Date Resolved Date Screening for unspecified condition 02/19/2015 02/19/2015 Plantar wart of left foot: plantar 1st MTP 08/0701/04/2017 Intradermal Nevus: Melanocytic vs Neuroid Nevus 08/07/2011 01/04/2017 R/O Neurofibroma: R mid lower buttock 08/07/2011 01/04/2017 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 superficialis: R mid lower buttock 08/07/2011 01/04/2017 Skin tag 08/07/2011 01/04/2017 Oral lesion: mid post hard palate 08/07/2011 01/04/2017 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 017 Oral neoplasm: mid post hard palate 08/07/2011 01/04/2017 Seborrheic Keratosis 10/23/2010 01/04/2017 GRANULOMA ANNULARE///ERYTHEMATOUS COND NEC 05/0301/04/2017 Shortness of breath 09/21/2006 01/04/2017 Open wound of other and unsp ecified parts of trunk, without mention of complication 03/27/2004 01/04/2017 documented as of this encounter (statuses as of 03/24/2022) [facility]arrative* Problem Noted Date Resolved Date Screening for unspecified condition 02/19/2015 02/19/2015 Plantar wart of left foot: plantar 1st MTP 08/0701/04/2017 Intradermal Nevus: Melanocytic vs Neuroid Nevus 08/07/2011 01/04/2017 R/O Neurofibroma: R mid lower buttock 08/07/2011 01/04/2017 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 superficialis: R mid lower buttock 08/07/2011 01/04/2017 Skin tag 08/07/2011 01/04/2017 Oral lesion: mid post hard palate 08/07/2011 01/04/2017 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 017 Oral neoplasm: mid post hard palate 08/07/2011 01/04/2017 Seborrheic Keratosis 10/23/2010 01/04/2017 GRANULOMA ANNULARE///ERYTHEMATOUS COND NEC 05/0301/04/2017 Shortness of breath 09/21/2006 01/04/2017 Open wound of other and unsp ecified parts of trunk, without mention of complication 03/27/2004 01/04/2017 documented as of this encounter (statuses as of 03/24/2022) [facility]arrative* Problem Noted Date Resolved Date Screening for unspecified condition 02/19/2015 02/19/2015 Plantar wart of left foot: plantar 1st MTP 08/0701/04/2017 Intradermal Nevus: Melanocytic vs Neuroid Nevus 08/07/2011 01/04/2017 R/O Neurofibroma: R mid lower buttock 08/07/2011 01/04/2017 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 superficialis: R mid lower buttock 08/07/2011 01/04/2017 Skin tag 08/07/2011 01/04/2017 Oral lesion: mid post hard palate 08/07/2011 01/04/2017 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 017 Oral neoplasm: mid post hard palate 08/07/2011 01/04/2017 Seborrheic Keratosis 10/23/2010 01/04/2017 GRANULOMA ANNULARE///ERYTHEMATOUS COND NEC 05/0301/04/2017 Shortness of breath 09/21/2006 01/04/2017 Open wound of other and unsp ecified parts of trunk, without mention of complication 03/27/2004 01/04/2017 documented as of this encounter (statuses as of 06/02/2022) [facility]arrative* Problem Noted Date Resolved Date Screening for unspecified condition 02/19/2015 02/19/2015 Plantar wart of left foot: plantar 1st MTP 08/0701/04/2017 Intradermal Nevus: Melanocytic vs Neuroid Nevus 08/07/2011 01/04/2017 R/O Neurofibroma: R mid lower buttock 08/07/2011 01/04/2017 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 superficialis: R mid lower buttock 08/07/2011 01/04/2017 Skin tag 08/07/2011 01/04/2017 Oral lesion: mid post hard palate 08/07/2011 01/04/2017 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 017 Oral neoplasm: mid post hard palate 08/07/2011 01/04/2017 Seborrheic Keratosis 10/23/2010 01/04/2017 GRANULOMA ANNULARE///ERYTHEMATOUS COND NEC 05/0301/04/2017 Shortness of breath 09/21/2006 01/04/2017 Open wound of other and unsp ecified parts of trunk, without mention of complication 03/27/2004 01/04/2017 documented as of this encounter (statuses as of 08/25/2022) [facility]ative* Problem Noted Date Resolved Date Screening for unspecified condition 02/19/2015 02/19/2015 Plantar wart of left foot: plantar 1st MTP 08/0701/04/2017 Intradermal Nevus: Melanocytic vs Neuroid Nevus 08/07/2011 01/04/2017 R/O Neurofibroma: R mid lower buttock 08/07/2011 01/04/2017 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 superficialis: R mid lower buttock 08/07/2011 01/04/2017 Skin tag 08/07/2011 01/04/2017 Oral lesion: mid post hard palate 08/07/2011 01/04/2017 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 017 Oral neoplasm: mid post hard palate 08/07/2011 01/04/2017 Seborrheic Keratosis 10/23/2010 01/04/2017 GRANULOMA ANNULARE///ERYTHEMATOUS COND NEC 05/0301/04/2017 Open wound of other and unsp ecified parts of trunk, without mention of complication 03/27/2004 01/04/2017 documented as of this encounter (statuses as of 09/01/2022) [facility]ative* Problem Noted Date Resolved Date Screening for unspecified condition 02/19/2015 02/19/2015 Plantar wart of left foot: plantar 1st MTP 08/0701/04/2017 Intradermal Nevus: Melanocytic vs Neuroid Nevus 08/07/2011 01/04/2017 R/O Neurofibroma: R mid lower buttock 08/07/2011 01/04/2017 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 superficialis: R mid lower buttock 08/07/2011 01/04/2017 Skin tag 08/07/2011 01/04/2017 Oral lesion: mid post hard palate 08/07/2011 01/04/2017 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 017 Oral neoplasm: mid post hard palate 08/07/2011 01/04/2017 Seborrheic Keratosis 10/23/2010 01/04/2017 GRANULOMA ANNULARE///ERYTHEMATOUS COND NEC 05/0301/04/2017 Open wound of other and unsp ecified parts of trunk, without mention of complication 03/27/2004 01/04/2017 documented as of this encounter (statuses as of 09/01/2022) [facility]* Problem Noted Date Resolved Date Screening for unspecified condition 02/19/2015 02/19/2015 Plantar wart of left foot: plantar 1st MTP 08/0701/04/2017 Intradermal Nevus: Melanocytic vs Neuroid Nevus 08/07/2011 01/04/2017 R/O Neurofibroma: R mid lower buttock 08/07/2011 01/04/2017 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 superficialis: R mid lower buttock 08/07/2011 01/04/2017 Skin tag 08/07/2011 01/04/2017 Oral lesion: mid post hard palate 08/07/2011 01/04/2017 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 017 Oral neoplasm: mid post hard palate 08/07/2011 01/04/2017 Seborrheic Keratosis 10/23/2010 01/04/2017 GRANULOMA ANNULARE///ERYTHEMATOUS COND NEC 05/0301/04/2017 Open wound of other and unsp ecified parts of trunk, without mention of complication 03/27/2004 01/04/2017 documented as of this encounter (statuses as of 09/01/2022) [facility]* Problem Noted Date Resolved Date Screening for unspecified condition 02/19/2015 02/19/2015 Plantar wart of left foot: plantar 1st MTP 08/0701/04/2017 Intradermal Nevus: Melanocytic vs Neuroid Nevus 08/07/2011 01/04/2017 R/O Neurofibroma: R mid lower buttock 08/07/2011 01/04/2017 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 superficialis: R mid lower buttock 08/07/2011 01/04/2017 Skin tag 08/07/2011 01/04/2017 Oral lesion: mid post hard palate 08/07/2011 01/04/2017 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 017 Oral neoplasm: mid post hard palate 08/07/2011 01/04/2017 Seborrheic Keratosis 10/23/2010 01/04/2017 GRANULOMA ANNULARE///ERYTHEMATOUS COND NEC 05/0301/04/2017 Open wound of other and unsp ecified parts of trunk, without mention of complication 03/27/2004 01/04/2017 documented as of this encounter (statuses as of 09/08/2022) [facility]ative* Problem Noted Date Resolved Date Screening for unspecified condition 02/19/2015 02/19/2015 Plantar wart of left foot: plantar 1st MTP 08/0701/04/2017 Intradermal Nevus: Melanocytic vs Neuroid Nevus 08/07/2011 01/04/2017 R/O Neurofibroma: R mid lower buttock 08/07/2011 01/04/2017 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 superficialis: R mid lower buttock 08/07/2011 01/04/2017 Skin tag 08/07/2011 01/04/2017 Oral lesion: mid post hard palate 08/07/2011 01/04/2017 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 017 Oral neoplasm: mid post hard palate 08/07/2011 01/04/2017 Seborrheic Keratosis 10/23/2010 01/04/2017 GRANULOMA ANNULARE///ERYTHEMATOUS COND NEC 05/0301/04/2017 Open wound of other and unsp ecified parts of trunk, without mention of complication 03/27/2004 01/04/2017 documented as of this encounter (statuses as of 12/02/2022) [facility]arrative* Problem Noted Date Diagnosed Date Resolved Date Screening for unspecified condition 02/19/2015 02/19/2015 Plantar wart of left foot: plantar 1st MTP 08/07/2011 01/04/2017 Intradermal Nevus: Melanocyt ic vs Neuroid Nevus 08/07/2011 01/04/2017 R/O Neurofibroma: R mid lower buttock 08/07/2011 01/04/2017 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 superficialis: R mid lower buttock 08/07/201101/04 Skin tag 08/07/2011 01/04/2017 Oral lesion: mid post hard palate 08/07/2011 01/04/2017 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 08/07/2011 01/04/2017 Seborrheic Keratosis 10/23/2010 017 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 01/04/2017 Open wound of other and unsp ecified parts of trunk, without mention of complication 03/27/2004 0 01/04/2017 documented as of this encounter (statuses as of 01/13/2023) [facility]09-02-2015 History of Past illness Narrative* Problem Noted Date Diagnosed Date Resolved Date Screening for unspecified condition 02/19/2015 02/19/2015 Plantar wart of left foot: plantar 1st MTP 08/07/2011 01/04/2017 Intradermal Nevus: Melanocyt ic vs Neuroid Nevus 08/07/2011 01/04/2017 R/O Neurofibroma: R mid lower buttock 08/07/2011 01/04/2017 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 superficialis: R mid lower buttock 08/07/201101/04 Skin tag 08/07/2011 01/04/2017 Oral lesion: mid post hard palate 08/07/2011 01/04/2017 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 08/07/2011 01/04/2017 Seborrheic Keratosis 10/23/2010 017 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 01/04/2017 Open wound of other and unsp ecified parts of trunk, without mention of complication 03/27/2004 0 01/04/2017 documented as of this encounter (statuses as of 01/13/2023) [facility]2015 History of Past illness Narrative* Problem Noted Date Diagnosed Date Resolved Date Screening for unspecified condition 02/19/2015 02/19/2015 Plantar wart of left foot: plantar 1st MTP 08/07/2011 01/04/2017 Intradermal Nevus: Melanocyt ic vs Neuroid Nevus 08/07/2011 01/04/2017 R/O Neurofibroma: R mid lower buttock 08/07/2011 01/04/2017 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 superficialis: R mid lower buttock 08/07/201101/04 Skin tag 08/07/2011 01/04/2017 Oral lesion: mid post hard palate 08/07/2011 01/04/2017 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 08/07/2011 01/04/2017 Seborrheic Keratosis 10/23/2010 017 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 01/04/2017 Open wound of other and unsp ecified parts of trunk, without mention of complication 03/27/2004 0 01/04/2017 documented as of this encounter (statuses as of 01/13/2023) [facility] History of Past illness Narrative* Problem Noted Date Diagnosed Date Resolved Date Screening for unspecified condition 02/19/2015 02/19/2015 Plantar wart of left foot: plantar 1st MTP 08/07/2011 01/04/2017 Intradermal Nevus: Melanocyt ic vs Neuroid Nevus 08/07/2011 01/04/2017 R/O Neurofibroma: R mid lower buttock 08/07/2011 01/04/2017 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 superficialis: R mid lower buttock 08/07/201101/04 Skin tag 08/07/2011 01/04/2017 Oral lesion: mid post hard palate 08/07/2011 01/04/2017 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 08/07/2011 01/04/2017 Seborrheic Keratosis 10/23/2010 017 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 01/04/2017 Open wound of other and unsp ecified parts of trunk, without mention of complication 03/27/2004 0 01/04/2017 documented as of this encounter (statuses as of 01/17/2023) [facility] History of Past illness Narrative* Problem Noted Date Diagnosed Date Resolved Date Screening for unspecified condition 02/19/2015 02/19/2015 Plantar wart of left foot: plantar 1st MTP 08/07/2011 01/04/2017 Intradermal Nevus: Melanocyt ic vs Neuroid Nevus 08/07/2011 01/04/2017 R/O Neurofibroma: R mid lower buttock 08/07/2011 01/04/2017 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 superficialis: R mid lower buttock 08/07/201101/04 Skin tag 08/07/2011 01/04/2017 Oral lesion: mid post hard palate 08/07/2011 01/04/2017 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 08/07/2011 01/04/2017 Seborrheic Keratosis 10/23/2010 017 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 01/04/2017 Open wound of other and unsp ecified parts of trunk, without mention of complication 03/27/2004 0 01/04/2017 documented as of this encounter (statuses as of 01/21/2023) [facility] History of Past illness Narrative* Problem Noted Date Diagnosed Date Resolved Date Screening for unspecified condition 02/19/2015 02/19/2015 Plantar wart of left foot: plantar 1st MTP 08/07/2011 01/04/2017 Intradermal Nevus: Melanocyt ic vs Neuroid Nevus 08/07/2011 01/04/2017 R/O Neurofibroma: R mid lower buttock 08/07/2011 01/04/2017 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 superficialis: R mid lower buttock 08/07/201101/04 Skin tag 08/07/2011 01/04/2017 Oral lesion: mid post hard palate 08/07/2011 01/04/2017 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 08/07/2011 01/04/2017 Seborrheic Keratosis 10/23/2010 017 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 01/04/2017 Open wound of other and unsp ecified parts of trunk, without mention of complication 03/27/2004 0 01/04/2017 documented as of this encounter (statuses as of 01/22/2023) [facility] History of Past illness Narrative* Problem Noted Date Diagnosed Date Resolved Date Screening for unspecified condition 02/19/2015 02/19/2015 Plantar wart of left foot: plantar 1st MTP 08/07/2011 01/04/2017 Intradermal Nevus: Melanocyt ic vs Neuroid Nevus 08/07/2011 01/04/2017 R/O Neurofibroma: R mid lower buttock 08/07/2011 01/04/2017 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 superficialis: R mid lower buttock 08/07/201101/04 Skin tag 08/07/2011 01/04/2017 Oral lesion: mid post hard palate 08/07/2011 01/04/2017 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 08/07/2011 01/04/2017 Seborrheic Keratosis 10/23/2010 017 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 01/04/2017 Open wound of other and unsp ecified parts of trunk, without mention of complication 03/27/2004 0 01/04/2017 documented as of this encounter (statuses as of 01/25/2023) [facility] History of Past illness Narrative* Problem Noted Date Diagnosed Date Resolved Date Screening for unspecified condition 02/19/2015 02/19/2015 Plantar wart of left foot: plantar 1st MTP 08/07/2011 01/04/2017 Intradermal Nevus: Melanocyt ic vs Neuroid Nevus 08/07/2011 01/04/2017 R/O Neurofibroma: R mid lower buttock 08/07/2011 01/04/2017 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 superficialis: R mid lower buttock 08/07/201101/04 Skin tag 08/07/2011 01/04/2017 Oral lesion: mid post hard palate 08/07/2011 01/04/2017 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 08/07/2011 01/04/2017 Seborrheic Keratosis 10/23/2010 017 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 01/04/2017 Open wound of other and unsp ecified parts of trunk, without mention of complication 03/27/2004 0 01/04/2017 documented as of this encounter (statuses as of 01/28/2023) [facility] History of Past illness Narrative* Problem Noted Date Diagnosed Date Resolved Date Screening for unspecified condition 02/19/2015 02/19/2015 Plantar wart of left foot: plantar 1st MTP 08/07/2011 01/04/2017 Intradermal Nevus: Melanocyt ic vs Neuroid Nevus 08/07/2011 01/04/2017 R/O Neurofibroma: R mid lower buttock 08/07/2011 01/04/2017 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 superficialis: R mid lower buttock 08/07/201101/04 Skin tag 08/07/2011 01/04/2017 Oral lesion: mid post hard palate 08/07/2011 01/04/2017 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 08/07/2011 01/04/2017 Seborrheic Keratosis 10/23/2010 017 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 01/04/2017 Open wound of other and unsp ecified parts of trunk, without mention of complication 03/27/2004 0 01/04/2017 documented as of this encounter (statuses as of 01/29/2023) [facility] History of Past illness Narrative* Problem Noted Date Diagnosed Date Resolved Date Screening for unspecified condition 02/19/2015 02/19/2015 Plantar wart of left foot: plantar 1st MTP 08/07/2011 01/04/2017 Intradermal Nevus: Melanocyt ic vs Neuroid Nevus 08/07/2011 01/04/2017 R/O Neurofibroma: R mid lower buttock 08/07/2011 01/04/2017 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 superficialis: R mid lower buttock 08/07/201101/04 Skin tag 08/07/2011 01/04/2017 Oral lesion: mid post hard palate 08/07/2011 01/04/2017 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 08/07/2011 01/04/2017 Seborrheic Keratosis 10/23/2010 017 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 01/04/2017 Open wound of other and unsp ecified parts of trunk, without mention of complication 03/27/2004 0 01/04/2017 documented as of this encounter (statuses as of 02/03/2023) [facility] History of Past illness Narrative* Problem Noted Date Diagnosed Date Resolved Date Screening for unspecified condition 02/19/2015 02/19/2015 Plantar wart of left foot: plantar 1st MTP 08/07/2011 01/04/2017 Intradermal Nevus: Melanocyt ic vs Neuroid Nevus 08/07/2011 01/04/2017 R/O Neurofibroma: R mid lower buttock 08/07/2011 01/04/2017 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 superficialis: R mid lower buttock 08/07/201101/04 Skin tag 08/07/2011 01/04/2017 Oral lesion: mid post hard palate 08/07/2011 01/04/2017 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 08/07/2011 01/04/2017 Seborrheic Keratosis 10/23/2010 017 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 01/04/2017 Open wound of other and unsp ecified parts of trunk, without mention of complication 03/27/2004 0 01/04/2017 documented as of this encounter (statuses as of 02/11/2023) [facility] History of Past illness Narrative* Problem Noted Date Diagnosed Date Resolved Date Screening for unspecified condition 02/19/2015 02/19/2015 Plantar wart of left foot: plantar 1st MTP 08/07/2011 01/04/2017 Intradermal Nevus: Melanocyt ic vs Neuroid Nevus 08/07/2011 01/04/2017 R/O Neurofibroma: R mid lower buttock 08/07/2011 01/04/2017 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 superficialis: R mid lower buttock 08/07/201101/04 Skin tag 08/07/2011 01/04/2017 Oral lesion: mid post hard palate 08/07/2011 01/04/2017 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 08/07/2011 01/04/2017 Seborrheic Keratosis 10/23/2010 017 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 01/04/2017 Open wound of other and unsp ecified parts of trunk, without mention of complication 03/27/2004 0 01/04/2017 documented as of this encounter (statuses as of 02/14/2023) [facility] History of Past illness Narrative* Problem Noted Date Diagnosed Date Resolved Date Screening for unspecified condition 02/19/2015 02/19/2015 Plantar wart of left foot: plantar 1st MTP 08/07/2011 01/04/2017 Intradermal Nevus: Melanocyt ic vs Neuroid Nevus 08/07/2011 01/04/2017 R/O Neurofibroma: R mid lower buttock 08/07/2011 01/04/2017 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 superficialis: R mid lower buttock 08/07/201101/04 Skin tag 08/07/2011 01/04/2017 Oral lesion: mid post hard palate 08/07/2011 01/04/2017 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 08/07/2011 01/04/2017 Seborrheic Keratosis 10/23/2010 017 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 01/04/2017 Open wound of other and unsp ecified parts of trunk, without mention of complication 03/27/2004 0 01/04/2017 documented as of this encounter (statuses as of 03/04/2023) [facility] History of Past illness Narrative* Problem Noted Date Diagnosed Date Resolved Date Screening for unspecified condition 02/19/2015 02/19/2015 Plantar wart of left foot: plantar 1st MTP 08/07/2011 01/04/2017 Intradermal Nevus: Melanocyt ic vs Neuroid Nevus 08/07/2011 01/04/2017 R/O Neurofibroma: R mid lower buttock 08/07/2011 01/04/2017 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 superficialis: R mid lower buttock 08/07/201101/04 Skin tag 08/07/2011 01/04/2017 Oral lesion: mid post hard palate 08/07/2011 01/04/2017 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 08/07/2011 01/04/2017 Seborrheic Keratosis 10/23/2010 017 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 01/04/2017 Open wound of other and unsp ecified parts of trunk, without mention of complication 03/27/2004 0 01/04/2017 documented as of this encounter (statuses as of 04/05/2023) [facility] History of Past illness Narrative* Problem Noted Date Diagnosed Date Resolved Date Screening for unspecified condition 02/19/2015 02/19/2015 Plantar wart of left foot: plantar 1st MTP 08/07/2011 01/04/2017 Intradermal Nevus: Melanocyt ic vs Neuroid Nevus 08/07/2011 01/04/2017 R/O Neurofibroma: R mid lower buttock 08/07/2011 01/04/2017 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 superficialis: R mid lower buttock 08/07/201101/04 Skin tag 08/07/2011 01/04/2017 Oral lesion: mid post hard palate 08/07/2011 01/04/2017 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 08/07/2011 01/04/2017 Seborrheic Keratosis 10/23/2010 017 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 01/04/2017 Open wound of other and unsp ecified parts of trunk, without mention of complication 03/27/2004 0 01/04/2017 documented as of this encounter (statuses as of 04/12/2023) [facility] History of Past illness Narrative* Problem Noted Date Diagnosed Date Resolved Date Screening for unspecified condition 02/19/2015 02/19/2015 Plantar wart of left foot: plantar 1st MTP 08/07/2011 01/04/2017 Intradermal Nevus: Melanocyt ic vs Neuroid Nevus 08/07/2011 01/04/2017 R/O Neurofibroma: R mid lower buttock 08/07/2011 01/04/2017 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 superficialis: R mid lower buttock 08/07/201101/04 Skin tag 08/07/2011 01/04/2017 Oral lesion: mid post hard palate 08/07/2011 01/04/2017 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 08/07/2011 01/04/2017 Seborrheic Keratosis 10/23/2010 017 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 01/04/2017 Open wound of other and unsp ecified parts of trunk, without mention of complication 03/27/2004 0 01/04/2017 documented as of this encounter (statuses as of 04/15/2023) [facility] History of Past illness Narrative* Problem Noted Date Diagnosed Date Resolved Date Screening for unspecified condition 02/19/2015 02/19/2015 Plantar wart of left foot: plantar 1st MTP 08/07/2011 01/04/2017 Intradermal Nevus: Melanocyt ic vs Neuroid Nevus 08/07/2011 01/04/2017 R/O Neurofibroma: R mid lower buttock 08/07/2011 01/04/2017 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 superficialis: R mid lower buttock 08/07/201101/04 Skin tag 08/07/2011 01/04/2017 Oral lesion: mid post hard palate 08/07/2011 01/04/2017 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 08/07/2011 01/04/2017 Seborrheic Keratosis 10/23/2010 017 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 01/04/2017 Open wound of other and unsp ecified parts of trunk, without mention of complication 03/27/2004 0 01/04/2017 documented as of this encounter (statuses as of 04/23/2023) [facility] History of Past illness Narrative* Problem Noted Date Diagnosed Date Resolved Date Screening for unspecified condition 02/19/2015 02/19/2015 Plantar wart of left foot: plantar 1st MTP 08/07/2011 01/04/2017 Intradermal Nevus: Melanocyt ic vs Neuroid Nevus 08/07/2011 01/04/2017 R/O Neurofibroma: R mid lower buttock 08/07/2011 01/04/2017 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 superficialis: R mid lower buttock 08/07/201101/04 Skin tag 08/07/2011 01/04/2017 Oral lesion: mid post hard palate 08/07/2011 01/04/2017 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 08/07/2011 01/04/2017 Seborrheic Keratosis 10/23/2010 017 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 01/04/2017 Open wound of other and unsp ecified parts of trunk, without mention of complication 03/27/2004 0 01/04/2017 documented as of this encounter (statuses as of 06/01/2023) [facility] History of Past illness Narrative* Problem Noted Date Diagnosed Date Resolved Date Screening for unspecified condition 02/19/2015 02/19/2015 Plantar wart of left foot: plantar 1st MTP 08/07/2011 01/04/2017 Intradermal Nevus: Melanocyt ic vs Neuroid Nevus 08/07/2011 01/04/2017 R/O Neurofibroma: R mid lower buttock 08/07/2011 01/04/2017 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 superficialis: R mid lower buttock 08/07/201101/04 Skin tag 08/07/2011 01/04/2017 Oral lesion: mid post hard palate 08/07/2011 01/04/2017 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 08/07/2011 01/04/2017 Seborrheic Keratosis 10/23/2010 017 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 01/04/2017 Open wound of other and unsp ecified parts of trunk, without mention of complication 03/27/2004 0 01/04/2017 documented as of this encounter (statuses as of 06/01/2023) [facility] History of Past illness Narrative* Problem Noted Date Diagnosed Date Resolved Date Screening for unspecified condition 02/19/2015 02/19/2015 Plantar wart of left foot: plantar 1st MTP 08/07/2011 01/04/2017 Intradermal Nevus: Melanocyt ic vs Neuroid Nevus 08/07/2011 01/04/2017 R/O Neurofibroma: R mid lower buttock 08/07/2011 01/04/2017 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 superficialis: R mid lower buttock 08/07/201101/04 Skin tag 08/07/2011 01/04/2017 Oral lesion: mid post hard palate 08/07/2011 01/04/2017 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 08/07/2011 01/04/2017 Seborrheic Keratosis 10/23/2010 017 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 01/04/2017 Open wound of other and unsp ecified parts of trunk, without mention of complication 03/27/2004 0 01/04/2017 documented as of this encounter (statuses as of 08/24/2023) [facility] History of Past illness Narrative* Problem Noted Date Diagnosed Date Resolved Date Screening for unspecified condition 02/19/2015 02/19/2015 Plantar wart of left foot: plantar 1st MTP 08/07/2011 01/04/2017 Intradermal Nevus: Melanocyt ic vs Neuroid Nevus 08/07/2011 01/04/2017 R/O Neurofibroma: R mid lower buttock 08/07/2011 01/04/2017 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 superficialis: R mid lower buttock 08/07/201101/04 Skin tag 08/07/2011 01/04/2017 Oral lesion: mid post hard palate 08/07/2011 01/04/2017 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 08/07/2011 01/04/2017 Seborrheic Keratosis 10/23/2010 017 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 01/04/2017 Open wound of other and unsp ecified parts of trunk, without mention of complication 03/27/2004 0 01/04/2017 documented as of this encounter (statuses as of 09/10/2023) [facility] History of Past illness Narrative* Problem Noted Date Diagnosed Date Resolved Date Screening for unspecified condition 02/19/2015 02/19/2015 Plantar wart of left foot: plantar 1st MTP 08/07/2011 01/04/2017 Intradermal Nevus: Melanocyt ic vs Neuroid Nevus 08/07/2011 01/04/2017 R/O Neurofibroma: R mid lower buttock 08/07/2011 01/04/2017 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 superficialis: R mid lower buttock 08/07/201101/04 Skin tag 08/07/2011 01/04/2017 Oral lesion: mid post hard palate 08/07/2011 01/04/2017 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 08/07/2011 01/04/2017 Seborrheic Keratosis 10/23/2010 017 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 01/04/2017 Open wound of other and unsp ecified parts of trunk, without mention of complication 03/27/2004 0 01/04/2017 documented as of this encounter (statuses as of 09/29/2023) [facility] History of Past illness Narrative* Problem Noted Date Diagnosed Date Resolved Date Screening for unspecified condition 02/19/2015 02/19/2015 Plantar wart of left foot: plantar 1st MTP 08/07/2011 01/04/2017 Intradermal Nevus: Melanocyt ic vs Neuroid Nevus 08/07/2011 01/04/2017 R/O Neurofibroma: R mid lower buttock 08/07/2011 01/04/2017 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 superficialis: R mid lower buttock 08/07/201101/04 Skin tag 08/07/2011 01/04/2017 Oral lesion: mid post hard palate 08/07/2011 01/04/2017 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 08/07/2011 01/04/2017 Seborrheic Keratosis 10/23/2010 017 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 01/04/2017 Open wound of other and unsp ecified parts of trunk, without mention of complication 03/27/2004 0 01/04/2017 documented as of this encounter (statuses as of 10/04/2023) [facility] of Past illness Narrative* Problem Noted Date Diagnosed Date Resolved Date Screening for unspecified condition 02/19/2015 02/19/2015 Plantar wart of left foot: plantar 1st MTP 08/07/2011 01/04/2017 Intradermal Nevus: Melanocyt ic vs Neuroid Nevus 08/07/2011 01/04/2017 R/O Neurofibroma: R mid lower buttock 08/07/2011 01/04/2017 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 superficialis: R mid lower buttock 08/07/201101/04 Skin tag 08/07/2011 01/04/2017 Oral lesion: mid post hard palate 08/07/2011 01/04/2017 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 08/07/2011 01/04/2017 Seborrheic Keratosis 10/23/2010 017 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 01/04/2017 Open wound of other and unsp ecified parts of trunk, without mention of complication 03/27/2004 0 01/04/2017 documented as of this encounter (statuses as of 10/05/2023) [facility] of Past illness Narrative* Problem Noted Date Diagnosed Date Resolved Date Screening for unspecified condition 02/19/2015 02/19/2015 Plantar wart of left foot: plantar 1st MTP 08/07/2011 01/04/2017 Intradermal Nevus: Melanocyt ic vs Neuroid Nevus 08/07/2011 01/04/2017 R/O Neurofibroma: R mid lower buttock 08/07/2011 01/04/2017 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 superficialis: R mid lower buttock 08/07/201101/04 Skin tag 08/07/2011 01/04/2017 Oral lesion: mid post hard palate 08/07/2011 01/04/2017 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 08/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 01/04/2017 Seborrheic Keratosis 10/23/2010 017 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 01/04/2017 Open wound of other and unsp ecified parts of trunk, without mention of complication 03/27/2004 0 01/04/2017 documented as of this encounter (statuses as of 10/07/2023) [facility] + Plan note No data available for this section [facility] Evaluation note* Diagnosis Viral illness- Primary Unspecified viral infection, in conditions classified elsewhere and of unspecified site Sore throat Acute pharyngitis Suspected COVID-19 virus infection Cough documented in this encounter [facility] note* Diagnosis Depressive disorder Depressive disorder, not elsewhere classified Anxiety Anxiety state, unspecified DM (diabetes mellitus), type 2 with neurological complications (HCC) Type II or unspecified type diabetes mellitus with neurological manifestations, not stated as uncontrolled documented in this encounter [facility] note* Diagnosis Encounter by telehealth for suspected COVID-19- Primary documented in this encounter [facility] note* Diagnosis Encounter for screening mammogram for breast cancer documented in this encounter [facility] note* Diagnosis Acute cough- Primary Chest congestion Other symptoms involving respiratory system and chest documented in this encounter [facility] note* Diagnosis DM (diabetes mellitus), type 2 with neurological complications (HCC) Type II or unspecified type diabetes mellitus with neurological manifestations, not stated as uncontrolled Depressive disorder Depressive disorder, not elsewhere classified Anxiety Anxiety state, unspecified documented in this encounter [facility] note* Diagnosis Mixed hyperlipidemia DM (diabetes mellitus), type 2 with neurological complications (HCC) Type II or unspecified type diabetes mellitus with neurological manifestations, not stated as uncontrolled Insomnia due to medical condition Insomnia due to medical condition classified elsewhere Depressive disorder Depressive disorder, not elsewhere classified Anxiety Anxiety state, unspecified documented in this encounter [facility] note* Diagnosis Depressive disorder Depressive disorder, not elsewhere classified Anxiety Anxiety state, unspecified documented in this encounter [facility] note* Diagnosis DM (diabetes mellitus), type 2 with neurological complications (HCC) Type II or unspecified type diabetes mellitus with neurological manifestations, not stated as uncontrolled documented in this encounter [facility] noteNo assessment information availableWWooster [facility] Work Phone: Evaluation note* Diagnosis Onset Date Resolution Status [id number] acute History of tobacco use [facility] Work Phone: Evaluation note* Diagnosis Pain in both lower extremities- Primary Memory loss Current severe episode of major 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 features, unspecified whether recurrent (HCC) Left-sided weakness Muscle weakness (generalized) Fatigue, unspecified type Mixed hyperlipidemia DM (diabetes mellitus), type 2 with neurological complications (HCC) Type II or unspecified type diabetes mellitus with neurological manifestations, not stated as uncontrolled Insomnia due to medical condition Insomnia due to medical condition classified elsewhere GERD without esophagitis Esophageal reflux documented in this encounter [facility] note* Diagnosis Pain in both lower extremities- Primary Neuropathy Mononeuritis of unspecified site documented in this encounter [facility] note* Diagnosis Upper back pain- Primary Current severe episode of major 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 features, unspecified whether recurrent (HCC) Nausea Nausea alone Mixed hyperlipidemia DM (diabetes mellitus), type 2 with neurological complications (HCC) Type II or unspecified type diabetes mellitus with neurological manifestations, not stated as uncontrolled Primary hypertension Unspecified essential hypertension documented in this encounter [facility] note* Diagnosis DM (diabetes mellitus), type 2 with neurological complications (HCC) Type II or unspecified type diabetes mellitus with neurological manifestations, not stated as uncontrolled documented in this encounter [facility] note* Diagnosis Encounter for screening mammogram for breast cancer documented in this encounter [facility] note* Diagnosis Chronic right shoulder pain- Primary Pain in joint, shoulder region Need for influenza vaccination Need for prophylactic vaccination and inoculation against influenza Arthralgia of right acromioclavicular joint Pain in joint, shoulder region DDD (degenerative disc disease), cervical Degeneration of cervical intervertebral disc Osteoarthritis of spine with radiculopathy, cervical region DM (diabetes mellitus), type 2 with neurological complications (HCC) Type II or unspecified type diabetes mellitus with neurological manifestations, not stated as uncontrolled documented in this encounter [facility] note* Diagnosis Onset Date Resolution Status Coronary artery 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 Diabetes mellitus, type 2 ch ronic Dyslipidemia chronic Dyspnea on exertion chronic Essential (primary) hypertension chronic Palpitations [facility] Work Phone: Evaluation note* Diagnosis Low back pain, unspecified back pain laterality, unspecified chronicity, unspecified whether sciatica present- Primary Osteoarthritis of spine with radiculopathy, cervical region documented in this encounter [facility] note* Diagnosis Osteoarthritis of spine with radiculopathy, cervical region- Primary Low back pain, unspecified back pain laterality, unspecified chronicity, unspecified whether sciatica present [facility] Diagnosis Memory loss Current severe episode of major 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 features, unspecified whether recurrent (HCC) Left-sided weakness Muscle weakness (generalized) [facility] Diagnosis Acute cough- Primary Viral URI Acute upper respiratory infections of unspecified site Burning with urination Dysuria Urinary tract infection without hematuria, site unspecified [facility] Diagnosis Acute cough [facility]* Diagnosis GERD without esophagitis Esophageal reflux Mixed hyperlipidemia DM (diabetes mellitus), type 2 with neurological complications (HCC) Type II or unspecified type diabetes mellitus with neurological manifestations, not stated as uncontrolled Current severe episode of major 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 features, unspecified whether recurrent (HCC) Insomnia due to medical condition Insomnia due to medical condition classified elsewhere [facility] Diagnosis Medicare annual wellness visit, subsequent- Primary Routine general medical examination at a health care facility Mixed hyperlipidemia DM (diabetes mellitus), type 2 with neurological complications (HCC) Type II or unspecified type diabetes mellitus with neurological manifestations, not stated as uncontrolled Primary hypertension Unspecified essential hypertension Encounter for immunization Need for other specified prophylactic vaccination against single bacterial disease [facility]* Diagnosis Encounter for screening mammogram for breast cancer [facility]* Diagnosis DM (diabetes mellitus), type 2 with neurological complications (HCC) Type II or unspecified type diabetes mellitus with neurological manifestations, not stated as uncontrolled [facility]* Diagnosis Screening for tuberculosis- Primary Screening examination for pulmonary tuberculosis Mixed hyperlipidemia DM (diabetes mellitus), type 2 with neurological complications (HCC) Type II or unspecified type diabetes mellitus with neurological manifestations, not stated as uncontrolled [facility]* Diagnosis Community acquired pneumonia, unspecified laterality [facility]* Diagnosis Cough [facility]* Diagnosis DM (diabetes mellitus), type 2 with neurological complications (HCC) Type II or unspecified type diabetes mellitus with neurological manifestations, not stated as uncontrolled [facility] Diagnosis DM (diabetes mellitus), type 2 with neurological complications (HCC)- Primary Type II or unspecified type diabetes mellitus with neurological manifestations, not stated as uncontrolled Osteoarthritis of spine with radiculopathy, cervical region Altered gait Abnormality of gait RLS (restless legs syndrome) Restless legs syndrome (RLS) Nausea Nausea alone Encounter for immunization Need for other specified prophylactic vaccination against single bacterial disease [facility] Diagnosis Osteoarthritis of spine with radiculopathy, cervical region- Primary [facility]* Diagnosis Lower resp. tract infection- Primary Other diseases of respiratory system, not elsewhere classified [facility]* Diagnosis Mass of axillary tail of left breast- Primary [facility]* Diagnosis Lump of axillary tail of left breast [facility] Diagnosis Mass of axillary tail of left breast documented [facility]* Diagnosis Osteoarthritis of spine with radiculopathy, cervical region [facility] Diagnosis Rash- Primary Rash and other nonspecific skin eruption [facility]* Diagnosis Acute cough- Primary Flu-like symptoms Other general symptoms Sinus pressure Other diseases of nasal cavity and sinuses Acute cough [facility]* Diagnosis Acute cough [facility]* Diagnosis Insomnia due to medical condition Insomnia due to medical condition classified elsewhere Current severe episode of major 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 features, unspecified whether recurrent ([facility]) [facility]* Diagnosis DM (diabetes mellitus), type 2 with neurological complications (HCC) Type II or unspecified type diabetes mellitus with neurological manifestations, not stated as uncontrolled Mixed hyperlipidemia GERD without esophagitis Esophageal reflux [facility]* Diagnosis Visit for screening mammogram- Primary Other screening mammogram [facility]* Diagnosis Diabetic polyneuropathy associated with type 2 diabetes mellitus (HCC)- Primary Onychodystrophy Other specified disease of nail Diminished pulses in lower extremity Other symptoms involving cardiovascular system Pain in toe of right foot Pain in limb Pain in toe of left foot Pain in limb 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 [facility]* Diagnosis Vitamin D deficiency- Primary Unspecified vitamin D deficiency Mixed hyperlipidemia DM (diabetes mellitus), type 2 with neurological complications (HCC) Type II or unspecified type diabetes mellitus with neurological manifestations, not stated as uncontrolled [facility]* Diagnosis Chest pain, unspecified type- Primary Encounter for screening for lung cancer Type 2 diabetes mellitus without complication, with long-term current use of insulin ([facility]) Primary hypertension Unspecified essential hypertension Mixed hyperlipidemia Myalgia Mylagia and myositis, unspecified Obesity, Class I, BMI 30-34.9 Obesity, unspecified [facility]* Diagnosis Hospital discharge follow-up- Primary Other follow-up examination Right leg weakness Other musculoskeletal symptoms referable to limbs Right calf pain Spinal stenosis of lumbar region, unspecified whether neurogenic claudication present Difficulty in walking, not elsewhere classified History of back surgery Other postprocedural status Neuropathy Mononeuritis of unspecified site Hypomagnesemia Disorders of magnesium metabolism [facility]* Diagnosis Right calf pain documented in this encounter [facility] note* Diagnosis Right leg numbness- Primary Disturbance of skin sensation Abnormal reflex Spinal stenosis of lumbar region without neurogenic claudication Spinal stenosis, lumbar region, without neurogenic claudication Memory difficulty Memory loss [facility] Additional Instructions Follow-up with your PCP. Return for any worsening of symptoms.[facility] Work Phone: Hospital Discharge instructionsAdditional Instructions - You received an intravenous dose of the antibiotic vancomycin today (15 mg per kg) to treat the cellulitis in your right foot; please complete any additional antibiotic doses as directed. - Blood tests to check for infection (white blood cell count, inflammation markers, lactic acid) and a three-view x-ray of your right foot showed no signs of bone infection or sepsis. - Keep your podiatry appointment one week from today for further evaluation of your foot. - If redness spreads a significant amount outside of the lines drawn, and/or you are developing fevers, chills, or signs of sepsis, return to the ER. -To prevent antibiotic associated diarrhea and/or C. difficile, eat yogurt or take a probiotic at least once daily while you are on the antibiotics.[facility] Work Phone: [facility] ([facility] Diagnostic Procedure Only (Routine) - Pending Review Specialty Diagnoses / Procedures Referred By Contac t Referred To Contact [facility] Diagnoses Encounter for screening mammogram for breast cancer Procedures RENA SCREENING SCREENING MAMMOGRAPHY BI 2-VIEW BREAST INC CAD El Driver, DO [address] [place] [address] [facility] [address] [place] [address] Referral ID Status Reason Start Date Expiration Date Visits Requested Visits Authorized [id number] Pending Review Auto-Generat ed Referral 03/03/2022 04/02/2023 1 1 T [facility] for referral (narrative)* Diagnostic Procedure Only (Routine) - Pending Review Specialty Diagnoses / Procedures Referred By Contac t Referred To Contact [facility] Diagnoses Encounter for screening mammogram for breast cancer Procedures RENA SCREENING SCREENING MAMMOGRAPHY BI 2-VIEW BREAST INC CAD El Driver, DO [address] [place] [address] [facility] [address] [place] [address] Referral ID Status Reason Start Date Expiration Date Visits Requested Visits Authorized [id number] Pending Review Auto-Generat ed Referral 02/09/2023 03/10/2024 1 1 [facility] for referral (narrative)* Diagnostic Procedure Only (Routine) - Pending Review Specialty Diagnoses / Procedures Referred By Contac t Referred To Contact XR IMAGING Diagnoses Osteoarthritis of spine with radiculopathy, cervical region Procedures XR CERV OTHER 4V AP/LAT/FLX/EXT RADEX SPINE CERVICAL 4 OR 5 VIEWS Olinda Chávez MD, PhD [address] [facility] [place] [address] [place] [address] Referral ID Status Reason Start Date Expiration Date Visits Requested Visits Authorized [id number] Pending Review Auto-Generat ed Referral 3 05/03/2024 1 1 * Physical Therapy (Routine) - Pending Review Specialty Diagnoses / Procedures Referred By Contac t Referred To Contact [facility] Diagnoses Low back pain, unspecified back pain laterality, unspecified chronicity, unspecified whether sciatica present Procedures CONSULT TO PHYSICAL THERAPY PHYSICAL THERAPY EVALUATION HIGH COMPLEX 45 MINS Olinda Chávez MD, PhD [address] [place] [address] [facility] [place] [address] [place] [address] Referral ID Status Reason Start Date Expiration Date Visits Requested Visits Authorized [id number] Pending Review Auto-Generat ed Referral 3 04/03/2024 1 1 [facility] for referral (narrative)* Diagnostic Procedure Only (Routine) - Authorized Specialty Diagnoses / Procedures Referred By Contac t Referred To Contact [facility] Diagnoses Mass of axillary tail of left breast Procedures US BREAST LTD LEFT US BREAST UNI REAL TIME WITH IMAGE LIMITED Alysha Sol APRN.CLOTH STOCK SORTER [address] [place] [address] [facility] [address] [place] [address] Referral ID Status Reason Start Date Expiration Date Visits Requested Visits Authorized [id number] Authorized Auto-Generat ed Referral 4 07/04/2025 1 1 [facility] for referral (narrative)* Diagnostic Procedure Only (Routine) - Closed Specialty Diagnoses / Procedures Referred By Contac t Referred To Contact [facility] Diagnoses Mass of axillary tail of left breast Procedures US BREAST LTD LEFT US BREAST UNI REAL TIME WITH IMAGE LIMITED Alysha Sol APRN.CL[employer] STOCK SORTER [address] [place] [address] [facility] [address] [place] [address] Referral ID Status Reason Start Date Expiration Date V isits Requested Visits Authorized [id number] Closed Auto-Generate d Referral 06/04/2024 07/04/2025 1 1 [facility] for referral (narrative)No reason for referral information availableWWooster [facility] Work Phone: Reason for visit Narrative* Diagnostic Procedure Only (Routine) - Closed Specialty Diagnoses / Procedures Referred By Awilda hurst Referred To Contact [facility] Diagnoses Encounter for screening mammogram for breast cancer Procedures RENA SCREENING SCREENING MAMMOGRAPHY BI 2-VIEW BREAST INC El Davila, DO [address] [place] [address] [facility] [address] [place] [phone] Referral ID Status Reason Start Date Expiration Date V isits Requested Visits Authorized [id number] Closed Auto-Generate d Referral 02/09/2023 03/10/2024 1 1 [facility] for visit Narrative* Diagnostic Procedure Only (Routine) - Closed Specialty Diagnoses / Procedures Referred By Awilda hurst Referred To Contact [facility] Diagnoses Lump of axillary tail of left breast Procedures RENA DIAGNOSTIC LEFT DIAGNOSTIC MAMMOGRAPHY COMPUTER-AIDED DETCJ RUST Alysha Sol APRN.[employer] SORTER [address] [place] [address] [facility] [address] [place] [phone] Referral ID Status Reason Start Date Expiration Date V isits Requested Visits Authorized [id number] Closed Auto-Generate d Referral 06/04/2024 07/04/2025 1 1 [facility] for visit Narrative* Diagnostic Procedure Only (Routine) - Closed Specialty Diagnoses / Procedures Referred By Awilda hurst Referred To Contact US IMAGING Diagnoses Right calf pain Procedures US DVT LOWER RIGHT DUP-SCAN XTR VEINS UNILATERAL/LIMITED STUDY ParamjitlogRadha santiago APRN.[employer] STOCK SORTER [address] [place] [address] Phone: tel: fax: [facility] [place] [id number] Referral ID Status Reason Start Date Expiration Date V isits Requested Visits Authorized [id number] Closed Auto-Generate d Referral 12/31/2024 01/30/2026 1 1 [facility] Concerns Infection Onset Date Last Indicated Resolved Time COVID-19 Rule-Out 09/30/2021 09/30/2021 Infection Onset Date Last Indicated Resolved Time COVID-19 Rule-Out 09/30/2021 09/30/2021 10/01/2021 4:13 AM EDT Infection Onset Date Last Indicated Resolved Time COVID-19 Rule-Out 12/04/2021 12/04/2021 Infection Onset Date Last Indicated Resolved Time COVID-19 Rule-Out 12/04/2021 12/04/2021 12/05/2021 7:45 AM EDT COVID-19 Confirmed 12/04/2021 12/04/2021 8:51 PM EDT Infection Onset Date Last Indicated Resolved Time COVID-19 Rule-Out 03/23/2022 03/23/2022 Infection Onset Date Last Indicated Resolved Time COVID-19 Rule-Out 03/23/2022 03/23/2022 03/24/2022 5:30 AM EDT Advance Directives No Advanced Directives Records FoundDocuments on File Type Date Recorded Patient Shadow Graph Weight Operator Expl anation Advance Directive(s) 02/23/2017 11:03 AM Advance Directive Response Recorded Date/ Time Living Will No September 19, 2022 1:31pm Power of [employer] No September 19 1:31pm Advance Directive Response Recorded Date/ Time Living Will No January 20, 2023 2:50pm Power of [employer] No January 20 2:50pm Advance Directive Response Recorded Date/ Time Do you have a Healthcare Power of Metal [employer]? No March 20, 2025 4:18pm Summary Purpose Family History No Family History Records Found Relationship Condition Age at Onset Recorded Date/T jace mother Diabetes mellitus Unknown Cerebrovascular accident (CVA) Unknown Hypertension Unknown High blood cholesterol Unknown father Coronary artery disease Unknown brother Malignant neoplasm Unknown Alcoholism Unknown daughter Anxiety Unknown sister Depression Unknown Diabetes mellitus Unknown Cardiac disease Unknown son Diabetes mellitus Unknown Relationship Condition Age at Onset Recorded Date/T jace mother Diabetes mellitus Unknown Cerebrovascular accident (CVA) Unknown Hypertension Unknown High blood cholesterol Unknown father Coronary artery disease Unknown brother Malignant neoplasm Unknown Alcoholism Unknown Coronary artery disease Unknown daughter Anxiety Unknown sister Depression Unknown Diabetes mellitus Unknown Cardiac disease Unknown son Diabetes mellitus Unknown Chief Complaint and Reason for Visit Chief Complaint FALL Chief Complaint FALL SCREENING LUNG CANCER SCREENING Chief Complaint FALL SCREENING LUNG CANCER SCREENING TOBACCO USE Reason for Visit [id number] History of tobacco use Chief Complaint LUNG CANCER SCREENIN G TOBACCO USE RIGHT SHOULDER Reason for Visit [id number] History of tobacco use Chief Complaint RIGHT SHOULDER FATIGUE / SOB (SELF) PALPITATIONS, JENSEN PALPITATIONS PALPITATIONS Amb Documentation Amb Documentation Reason for Visit Coronary artery dise ase Diabetes mellitus, type 2 Dyslipidemia Dyspnea on exertion Essential (primary) hypertension Palpitations Chief Complaint Lung Cancer Screenin g SCREENING Chief Complaint Admit Date cellulitis March 20, 2025 3: 53pm Reason for Referral Specialty Diagnoses / Procedures Referred By Awilda hurst Referred To Contact [facility] Diagnoses Osteoarthritis of spine with radiculopathy, cervical region Procedures CONSULT TO PHYSICAL THERAPY PHYSICAL THERAPY EVALUATION HIGH COMPLEX 45 MINS Jeanie Cortez, INSPECTOR MATERIAL DISPOSITION.CLOTH STOCK SORTER [address] [place] [address] [facility] [place] [address] [place] [id number] Referral ID Status Reason Start Date Expiration Date V isits Requested Visits Authorized [id number] Open Auto-Generate d Referral 10/19/2023 06/19/2024 1 1 Specialty Diagnoses / Procedures Referred By Awilda hurst Referred To Contact [facility] Diagnoses Chronic right shoulder pain Arthralgia of right acromioclavicular joint DDD (degenerative disc disease), cervical Osteoarthritis of spine with radiculopathy, cervical region Procedures CONSULT TO PHYSICAL THERAPY PHYSICAL THERAPY EVALUATION HIGH COMPLEX 45 MINS El Driver, DO [address] [place] [address] [facility] [address] [address] Referral ID Status Reason Start Date Expiration Date Visits Requested Visits Authorized [id number] Pending Review Auto-Generat ed Referral 03/04/2023 03/03/2024 1 1 Specialty Diagnoses / Procedures Referred By Awilda hurst Referred To Contact CT IMAGING Diagnoses Memory loss Current severe episode of major 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 features, unspecified whether recurrent (HCC) Left-sided weakness Procedures CT BRAIN WO IVCON CT HEAD/BRAIN W/O CONTRAST MATERIAL Femi Alarcon APRN.CL[employer] STOCK SORTER [address] [place] [address] Ct [facility] Referral ID Status Reason Start Date Expiration Date Visits Requested Visits Authorized [id number] Authorized Auto-Generat ed Referral 01/13/2023 02/12/2024 1 1 Specialty Diagnoses / Procedures Referred By Contac t Referred To Contact Pain Management Diagnoses Pain in both lower extremities Procedures CONSULT TO PAIN MGT OFFICE/OUTPATIENT NEW HIGH MDM 60-74 MINUTES Femi Alarcon APRN.[employer] STOCK SORTER [address] [place] [address] Referral ID Status Reason Start Date Expiration Date Visits Requested Visits Authorized [id number] Authorized PCP Requested Referral 01/13/2023 01/13/2024 1 1 Specialty Diagnoses / Procedures Referred By Contac t Referred To Contact Neurology Diagnoses Memory loss Current severe episode of major 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 features, unspecified whether recurrent (HCC) Procedures CONSULT TO NEUROLOGY OFFICE/OUTPATIENT NEW HIGH MDM 60-74 MINUTES Femi Alarcon APRN.[employer] [address] [place] [address] Referral ID Status Reason Start Date Expiration Date Visits Requested Visits Authorized [id number] Authorized PCP Requested Referral 01/13/2023 01/13/2024 1 1 Additional Source Comments Source Comments (unrecognize d section and content) In the event this informatio n is protected by the Federal Confidentiality of Alcohol and Drug Abuse Patient Records regulations: The Federal rules restrict any use of the information to criminally investigate or prosecute any alcohol or drug abuse patient.[facility] CenterIn the event this information is protected by the Federal Confidentiality of Alcohol and Drug Abuse Patient Records regulations: The Federal rules restrict any use of the information to criminally investigate or prosecute any alcohol or drug abuse patient.[facility] CenterIn the event this information is protected by the Federal Confidentiality of Alcohol and Drug Abuse Patient Records regulations: The Federal rules restrict any use of the information to criminally investigate or prosecute any alcohol or drug abuse patient.[facility] CenterIn the event this information is protected by the Federal Confidentiality of Alcohol and Drug Abuse Patient Records regulations: The Federal rules restrict any use of the information to criminally investigate or prosecute any alcohol or drug abuse patient.[facility] CenterIn the event this information is protected by the Federal Confidentiality of Alcohol and Drug Abuse Patient Records regulations: The Federal rules restrict any use of the information to criminally investigate or prosecute any alcohol or drug abuse patient.[facility] CenterIn the event this information is protected by the Federal Confidentiality of Alcohol and Drug Abuse Patient Records regulations: The Federal rules restrict any use of the information to criminally investigate or prosecute any alcohol or drug abuse patient.[facility] CenterIn the event this information is protected by the Federal Confidentiality of Alcohol and Drug Abuse Patient Records regulations: The Federal rules restrict any use of the information to criminally investigate or prosecute any alcohol or drug abuse patient.[facility] CenterIn the event this information is protected by the Federal Confidentiality of Alcohol and Drug Abuse Patient Records regulations: The Federal rules restrict any use of the information to criminally investigate or prosecute any alcohol or drug abuse patient.[facility] CenterIn the event this information is protected by the Federal Confidentiality of Alcohol and Drug Abuse Patient Records regulations: The Federal rules restrict any use of the information to criminally investigate or prosecute any alcohol or drug abuse patient.[facility] CenterIn the event this information is protected by the Federal Confidentiality of Alcohol and Drug Abuse Patient Records regulations: The Federal rules restrict any use of the information to criminally investigate or prosecute any alcohol or drug abuse patient.[facility] CenterIn the event this information is protected by the Federal Confidentiality of Alcohol and Drug Abuse Patient Records regulations: The Federal rules restrict any use of the information to criminally investigate or prosecute any alcohol or drug abuse patient.[facility] CenterIn the event this information is protected by the Federal Confidentiality of Alcohol and Drug Abuse Patient Records regulations: The Federal rules restrict any use of the information to criminally investigate or prosecute any alcohol or drug abuse patient.[facility] CenterIn the event this information is protected by the Federal Confidentiality of Alcohol and Drug Abuse Patient Records regulations: The Federal rules restrict any use of the information to criminally investigate or prosecute any alcohol or drug abuse patient.[facility] CenterIn the event this information is protected by the Federal Confidentiality of Alcohol and Drug Abuse Patient Records regulations: The Federal rules restrict any use of the information to criminally investigate or prosecute any alcohol or drug abuse patient.[facility] CenterIn the event this information is protected by the Federal Confidentiality of Alcohol and Drug Abuse Patient Records regulations: The Federal rules restrict any use of the information to criminally investigate or prosecute any alcohol or drug abuse patient.[facility] CenterIn the event this information is protected by the Federal Confidentiality of Alcohol and Drug Abuse Patient Records regulations: The Federal rules restrict any use of the information to criminally investigate or prosecute any alcohol or drug abuse patient.[facility] CenterIn the event this information is protected by the Federal Confidentiality of Alcohol and Drug Abuse Patient Records regulations: The Federal rules restrict any use of the information to criminally investigate or prosecute any alcohol or drug abuse patient.[facility] CenterIn the event this information is protected by the Federal Confidentiality of Alcohol and Drug Abuse Patient Records regulations: The Federal rules restrict any use of the information to criminally investigate or prosecute any alcohol or drug abuse patient.[facility] CenterIn the event this information is protected by the Federal Confidentiality of Alcohol and Drug Abuse Patient Records regulations: The Federal rules restrict any use of the information to criminally investigate or prosecute any alcohol or drug abuse patient.[facility] CenterIn the event this information is protected by the Federal Confidentiality of Alcohol and Drug Abuse Patient Records regulations: The Federal rules restrict any use of the information to criminally investigate or prosecute any alcohol or drug abuse patient.[facility] CenterIn the event this information is protected by the Federal Confidentiality of Alcohol and Drug Abuse Patient Records regulations: The Federal rules restrict any use of the information to criminally investigate or prosecute any alcohol or drug abuse patient.[facility] CenterIn the event this information is protected by the Federal Confidentiality of Alcohol and Drug Abuse Patient Records regulations: The Federal rules restrict any use of the information to criminally investigate or prosecute any alcohol or drug abuse patient.[facility] CenterIn the event this information is protected by the Federal Confidentiality of Alcohol and Drug Abuse Patient Records regulations: The Federal rules restrict any use of the information to criminally investigate or prosecute any alcohol or drug abuse patient.[facility] CenterIn the event this information is protected by the Federal Confidentiality of Alcohol and Drug Abuse Patient Records regulations: The Federal rules restrict any use of the information to criminally investigate or prosecute any alcohol or drug abuse patient.[facility] CenterIn the event this information is protected by the Federal Confidentiality of Alcohol and Drug Abuse Patient Records regulations: The Federal rules restrict any use of the information to criminally investigate or prosecute any alcohol or drug abuse patient.[facility] CenterIn the event this information is protected by the Federal Confidentiality of Alcohol and Drug Abuse Patient Records regulations: The Federal rules restrict any use of the information to criminally investigate or prosecute any alcohol or drug abuse patient.[facility] CenterIn the event this information is protected by the Federal Confidentiality of Alcohol and Drug Abuse Patient Records regulations: The Federal rules restrict any use of the information to criminally investigate or prosecute any alcohol or drug abuse patient.[facility] CenterIn the event this information is protected by the Federal Confidentiality of Alcohol and Drug Abuse Patient Records regulations: The Federal rules restrict any use of the information to criminally investigate or prosecute any alcohol or drug abuse patient.[facility] CenterIn the event this information is protected by the Federal Confidentiality of Alcohol and Drug Abuse Patient Records regulations: The Federal rules restrict any use of the information to criminally investigate or prosecute any alcohol or drug abuse patient.[facility] CenterIn the event this information is protected by the Federal Confidentiality of Alcohol and Drug Abuse Patient Records regulations: The Federal rules restrict any use of the information to criminally investigate or prosecute any alcohol or drug abuse patient.[facility] CenterIn the event this information is protected by the Federal Confidentiality of Alcohol and Drug Abuse Patient Records regulations: The Federal rules restrict any use of the information to criminally investigate or prosecute any alcohol or drug abuse patient.[facility] CenterIn the event this information is protected by the Federal Confidentiality of Alcohol and Drug Abuse Patient Records regulations: The Federal rules restrict any use of the information to criminally investigate or prosecute any alcohol or drug abuse patient.[facility] CenterIn the event this information is protected by the Federal Confidentiality of Alcohol and Drug Abuse Patient Records regulations: The Federal rules restrict any use of the information to criminally investigate or prosecute any alcohol or drug abuse patient.[facility] CenterIn the event this information is protected by the Federal Confidentiality of Alcohol and Drug Abuse Patient Records regulations: The Federal rules restrict any use of the information to criminally investigate or prosecute any alcohol or drug abuse patient.[facility] CenterIn the event this information is protected by the Federal Confidentiality of Alcohol and Drug Abuse Patient Records regulations: The Federal rules restrict any use of the information to criminally investigate or prosecute any alcohol or drug abuse patient.[facility] CenterIn the event this information is protected by the Federal Confidentiality of Alcohol and Drug Abuse Patient Records regulations: The Federal rules restrict any use of the information to criminally investigate or prosecute any alcohol or drug abuse patient.[facility] CenterIn the event this information is protected by the Federal Confidentiality of Alcohol and Drug Abuse Patient Records regulations: The Federal rules restrict any use of the information to criminally investigate or prosecute any alcohol or drug abuse patient.[facility] CenterIn the event this information is protected by the Federal Confidentiality of Alcohol and Drug Abuse Patient Records regulations: The Federal rules restrict any use of the information to criminally investigate or prosecute any alcohol or drug abuse patient.[facility] CenterIn the event this information is protected by the Federal Confidentiality of Alcohol and Drug Abuse Patient Records regulations: The Federal rules restrict any use of the information to criminally investigate or prosecute any alcohol or drug abuse patient.[facility] CenterIn the event this information is protected by the Federal Confidentiality of Alcohol and Drug Abuse Patient Records regulations: The Federal rules restrict any use of the information to criminally investigate or prosecute any alcohol or drug abuse patient.[facility] CenterIn the event this information is protected by the Federal Confidentiality of Alcohol and Drug Abuse Patient Records regulations: The Federal rules restrict any use of the information to criminally investigate or prosecute any alcohol or drug abuse patient.[facility] CenterIn the event this information is protected by the Federal Confidentiality of Alcohol and Drug Abuse Patient Records regulations: The Federal rules restrict any use of the information to criminally investigate or prosecute any alcohol or drug abuse patient.[facility] CenterIn the event this information is protected by the Federal Confidentiality of Alcohol and Drug Abuse Patient Records regulations: The Federal rules restrict any use of the information to criminally investigate or prosecute any alcohol or drug abuse patient.[facility] CenterIn the event this information is protected by the Federal Confidentiality of Alcohol and Drug Abuse Patient Records regulations: The Federal rules restrict any use of the information to criminally investigate or prosecute any alcohol or drug abuse patient.[facility] CenterIn the event this information is protected by the Federal Confidentiality of Alcohol and Drug Abuse Patient Records regulations: The Federal rules restrict any use of the information to criminally investigate or prosecute any alcohol or drug abuse patient.[facility] CenterIn the event this information is protected by the Federal Confidentiality of Alcohol and Drug Abuse Patient Records regulations: The Federal rules restrict any use of the information to criminally investigate or prosecute any alcohol or drug abuse patient.[facility] CenterIn the event this information is protected by the Federal Confidentiality of Alcohol and Drug Abuse Patient Records regulations: The Federal rules restrict any use of the information to criminally investigate or prosecute any alcohol or drug abuse patient.[facility] CenterIn the event this information is protected by the Federal Confidentiality of Alcohol and Drug Abuse Patient Records regulations: The Federal rules restrict any use of the information to criminally investigate or prosecute any alcohol or drug abuse patient.[facility] CenterIn the event this information is protected by the Federal Confidentiality of Alcohol and Drug Abuse Patient Records regulations: The Federal rules restrict any use of the information to criminally investigate or prosecute any alcohol or drug abuse patient.[facility] CenterIn the event this information is protected by the Federal Confidentiality of Alcohol and Drug Abuse Patient Records regulations: The Federal rules restrict any use of the information to criminally investigate or prosecute any alcohol or drug abuse patient.[facility] CenterIn the event this information is protected by the Federal Confidentiality of Alcohol and Drug Abuse Patient Records regulations: The Federal rules restrict any use of the information to criminally investigate or prosecute any alcohol or drug abuse patient.[facility] CenterIn the event this information is protected by the Federal Confidentiality of Alcohol and Drug Abuse Patient Records regulations: The Federal rules restrict any use of the information to criminally investigate or prosecute any alcohol or drug abuse patient.[facility] CenterIn the event this information is protected by the Federal Confidentiality of Alcohol and Drug Abuse Patient Records regulations: The Federal rules restrict any use of the information to criminally investigate or prosecute any alcohol or drug abuse patient.[facility] CenterIn the event this information is protected by the Federal Confidentiality of Alcohol and Drug Abuse Patient Records regulations: The Federal rules restrict any use of the information to criminally investigate or prosecute any alcohol or drug abuse patient.[facility] CenterIn the event this information is protected by the Federal Confidentiality of Alcohol and Drug Abuse Patient Records regulations: The Federal rules restrict any use of the information to criminally investigate or prosecute any alcohol or drug abuse patient.[facility] CenterIn the event this information is protected by the Federal Confidentiality of Alcohol and Drug Abuse Patient Records regulations: The Federal rules restrict any use of the information to criminally investigate or prosecute any alcohol or drug abuse patient.[facility] CenterIn the event this information is protected by the Federal Confidentiality of Alcohol and Drug Abuse Patient Records regulations: The Federal rules restrict any use of the information to criminally investigate or prosecute any alcohol or drug abuse patient.[facility] CenterIn the event this information is protected by the Federal Confidentiality of Alcohol and Drug Abuse Patient Records regulations: The Federal rules restrict any use of the information to criminally investigate or prosecute any alcohol or drug abuse patient.[facility] CenterIn the event this information is protected by the Federal Confidentiality of Alcohol and Drug Abuse Patient Records regulations: The Federal rules restrict any use of the information to criminally investigate or prosecute any alcohol or drug abuse patient.[facility] CenterIn the event this information is protected by the Federal Confidentiality of Alcohol and Drug Abuse Patient Records regulations: The Federal rules restrict any use of the information to criminally investigate or prosecute any alcohol or drug abuse patient.[facility] CenterIn the event this information is protected by the Federal Confidentiality of Alcohol and Drug Abuse Patient Records regulations: The Federal rules restrict any use of the information to criminally investigate or prosecute any alcohol or drug abuse patient.[facility] CenterIn the event this information is protected by the Federal Confidentiality of Alcohol and Drug Abuse Patient Records regulations: The Federal rules restrict any use of the information to criminally investigate or prosecute any alcohol or drug abuse patient.[facility] CenterIn the event this information is protected by the Federal Confidentiality of Alcohol and Drug Abuse Patient Records regulations: The Federal rules restrict any use of the information to criminally investigate or prosecute any alcohol or drug abuse patient.[facility] CenterIn the event this information is protected by the Federal Confidentiality of Alcohol and Drug Abuse Patient Records regulations: The Federal rules restrict any use of the information to criminally investigate or prosecute any alcohol or drug abuse patient.[facility] CenterIn the event this information is protected by the Federal Confidentiality of Alcohol and Drug Abuse Patient Records regulations: The Federal rules restrict any use of the information to criminally investigate or prosecute any alcohol or drug abuse patient.[facility] CenterIn the event this information is protected by the Federal Confidentiality of Alcohol and Drug Abuse Patient Records regulations: The Federal rules restrict any use of the information to criminally investigate or prosecute any alcohol or drug abuse patient.[facility] CenterIn the event this information is protected by the Federal Confidentiality of Alcohol and Drug Abuse Patient Records regulations: The Federal rules restrict any use of the information to criminally investigate or prosecute any alcohol or drug abuse patient.[facility] CenterIn the event this information is protected by the Federal Confidentiality of Alcohol and Drug Abuse Patient Records regulations: The Federal rules restrict any use of the information to criminally investigate or prosecute any alcohol or drug abuse patient.[facility] CenterIn the event this information is protected by the Federal Confidentiality of Alcohol and Drug Abuse Patient Records regulations: The Federal rules restrict any use of the information to criminally investigate or prosecute any alcohol or drug abuse patient.[facility] CenterIn the event this information is protected by the Federal Confidentiality of Alcohol and Drug Abuse Patient Records regulations: The Federal rules restrict any use of the information to criminally investigate or prosecute any alcohol or drug abuse patient.[facility]In the event this information is protected by the Federal Confidentiality of Alcohol and Drug Abuse Patient Records regulations: The Federal rules restrict any use of the information to criminally investigate or prosecute any alcohol or drug abuse patient.[facility] CenterIn the event this information is protected by the Federal Confidentiality of Alcohol and Drug Abuse Patient Records regulations: The Federal rules restrict any use of the information to criminally investigate or prosecute any alcohol or drug abuse patient.[facility] CenterIn the event this information is protected by the Federal Confidentiality of Alcohol and Drug Abuse Patient Records regulations: The Federal rules restrict any use of the information to criminally investigate or prosecute any alcohol or drug abuse patient.[facility] CenterIn the event this information is protected by the Federal Confidentiality of Alcohol and Drug Abuse Patient Records regulations: The Federal rules restrict any use of the information to criminally investigate or prosecute any alcohol or drug abuse patient.[facility] CenterIn the event this information is protected by the Federal Confidentiality of Alcohol and Drug Abuse Patient Records regulations: The Federal rules restrict any use of the information to criminally investigate or prosecute any alcohol or drug abuse patient.[facility] CenterIn the event this information is protected by the Federal Confidentiality of Alcohol and Drug Abuse Patient Records regulations: The Federal rules restrict any use of the information to criminally investigate or prosecute any alcohol or drug abuse patient.[facility] CenterIn the event this information is protected by the Federal Confidentiality of Alcohol and Drug Abuse Patient Records regulations: The Federal rules restrict any use of the information to criminally investigate or prosecute any alcohol or drug abuse patient.[facility] CenterIn the event this information is protected by the Federal Confidentiality of Alcohol and Drug Abuse Patient Records regulations: The Federal rules restrict any use of the information to criminally investigate or prosecute any alcohol or drug abuse patient.[facility] CenterIn the event this information is protected by the Federal Confidentiality of Alcohol and Drug Abuse Patient Records regulations: The Federal rules restrict any use of the information to criminally investigate or prosecute any alcohol or drug abuse patient.[facility] CenterIn the event this information is protected by the Federal Confidentiality of Alcohol and Drug Abuse Patient Records regulations: The Federal rules restrict any use of the information to criminally investigate or prosecute any alcohol or drug abuse patient.[facility] CenterIn the event this information is protected by the Federal Confidentiality of Alcohol and Drug Abuse Patient Records regulations: The Federal rules restrict any use of the information to criminally investigate or prosecute any alcohol or drug abuse patient.[facility] Center[facility] the event this information is protected by the Federal Confidentiality of Alcohol and Drug Abuse Patient Records regulations: The Federal rules restrict any use of the information to criminally investigate or prosecute any alcohol or drug abuse patient.[facility] Reason for Visit (unrecogniz ed section and content) Reason Comments Chest Congestion sore throat, cough, BEEBE x 4 days Reason Comments Future Appointment Reason Onset Date Comments Refill Request 10/21/2021 Reason Comments Results Reason Comments Covid19 Concern Reason Onset Date Comments Chest Congestion 03/23/2022 Reason Comments Cough Cough, chest congest ion, SOB, ST, no taste and smell x 5 days Reason Onset Date Comments Refill Request 03/23/2022 Reason Onset Date Comments Refill Request 06/02/2022 Reason Comments Refill Request Reason Comments Rx; quantity issue Reason Onset Date Comments Refill Request 09/01/2022 Reason Comments Medication Update Reason Comments Medication Problem Reason Comments Depression Reason Comments Depression Reason Comments bh consult Reason Comments Results requesting pain management consult in [place] Reason Comments Appointment Reason Comments Patient Question Reason Comments hospital f/up Reason Onset Date Comments Refill Request 02/10/2023 Reason Onset Date Comments F/U 3 Month Immunizations 03/04/2023 Flu vaccination Reason Comments New Patient Reason Comments Patient Update Reason Comments PT Eval Specialty Diagnoses / Procedures Referred By Contac t Referred To Contact [facility] Diagnoses Low back pain, unspecified back pain laterality, unspecified chronicity, unspecified whether sciatica present Procedures CONSULT TO PHYSICAL THERAPY PHYSICAL THERAPY EVALUATION HIGH COMPLEX 45 MINS Olinda Chávez MD, PhD [address] [place] [address] [facility] [place] [address] [id number] Referral ID Status Reason Start Date Expiration Date Visits Requested Visits Authorized [id number] Pending Review Auto-Generat ed Referral 3 04/03/2024 [address] Specialty Diagnoses / Procedures Referred By Contac t Referred To Contact CT IMAGING Diagnoses Memory loss Current severe episode of major 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 features, unspecified whether recurrent (HCC) Left-sided weakness Procedures CT BRAIN WO IVCON CT HEAD/BRAIN W/O CONTRAST MATERIAL Femi Alarcon, INSPECTOR MATERIAL DISPOSITION.CLOTH STOCK SORTER [address] [place] [address] [facility] [place] [id number] Referral ID Status Reason Start Date Expiration Date V isits Requested Visits Authorized [id number] Closed Auto-Generate d Referral 01/13/2023 02/12/2024 1 1 Reason Comments Cough Wheezing Reason Onset Date Comments Population Health Navigation Outreach 09/10/2023 [facility] Annual Wellness Visit Reason Onset Date Comments Refill Request 09/27/2023 Reason Comments Medicare Wellness Exam Reason Onset Date Comments Refill Request 01/21/2024 Reason Onset Date Comments Refill Request 04/10/2024 Reason Comments Medication Follow-up Neuropathy worse Reason Comments Cough Chest congestion, ch est pressure., headache, wheeze,burning, green phlegm, SOB, fatigue x 4 days Reason Comments medication issue Reason Comments Derm Problem Reason Comments lump on back side of auxillia Reason Comments Radiology US Specialty Diagnoses / Procedures Referred By Awilda hurst Referred To Contact [facility] Diagnoses Mass of axillary tail of left breast Procedures US BREAST LTD LEFT US BREAST UNI REAL TIME WITH IMAGE LIMITED Alysha Sol APRN.CL[employer] STOCK SORTER [address] [place] [address] [facility] [address] [place] [address] Referral ID Status Reason Start Date Expiration Date V isits Requested Visits Authorized [id number] Closed Auto-Generate d Referral 06/04/2024 07/04/2025 1 1 Reason Onset Date Comments Refill Request 07/23/2024 Reason Comments Patient Request Reason Comments Rash Reason Comments Rash Itchy rash on legs x 1 week Reason Comments Cough Cough, sinus pain an d pressure, chest congestion and drainage x 4 days Reason Onset Date Comments Results 08/07/2024 Reason Onset Date Comments Refill Request 08/08/2024 Reason Onset Date Comments Refill Request 08/30/2024 Reason Comments Diabetic Foot Care [place] Ingrown Toenail Pain Reason Onset Date Comments Refill Request 09/29/2024 Quantity last ti me was incorrect Reason Comments handicap placard Lab Orders Reason Comments F/U 6 Month DM, labs completed Chest Pain 3 weeks ago Reason Comments Hospital F/U [facility] 12/24-12/25/24 Reason Comments Request Outside Medical Records Reason Onset Date Comments Results 01/01/2025 Reason Comments Numbness/Tingling Lower extremity Care Teams (unrecognized sec tion and content) Windows [employer] Doors Installer Relationship Specialty Start Date End Date El Driver, DO [address] [place] [address] PCP - General Family Practice 10/29/13 Windows And Doors Installer Relationship Specialty Start Date End Date El Driver, DO [address] [place] [address] PCP - General Family Practice 10/29/13 Windows And Doors Installer Relationship Specialty Start Date End Date El Driver, DO [address] [place] [address] PCP - General Family Practice 10/29/13 Windows And Doors Installer Relationship Specialty Start Date End Date El Driver, DO [address] [place] [address] PCP - General Family Practice 10/29/13 Windows And Doors Installer Relationship Specialty Start Date End Date El Driver, DO [address] [place] [address] PCP - General Family Practice 10/29/13 Windows And Doors Installer Relationship Specialty Start Date End Date El Driver, DO [address] [place] [address] PCP - General Family Practice 10/29/13 Windows And Doors Installer Relationship Specialty Start Date End Date El Driver, DO [address] [place] [address] PCP - General Family Practice 10/29/13 Windows And Doors Installer Relationship Specialty Start Date End Date El Driver, DO [address] [place] [address] PCP - General Family Medicine 10/29/13 Windows And Doors Installer Relationship Specialty Start Date End Date El Driver, DO [address] [place] [address] PCP - General Family Medicine 10/29/13 Windows And Doors Installer Relationship Specialty Start Date End Date El Driver, DO [address] [place] [address] PCP - General Family Medicine 10/29/13 Windows And Doors Installer Relationship Specialty Start Date End Date El Driver, DO [address] [place] [address] PCP - General Family Medicine 10/29/13 Windows And Doors Installer Relationship Specialty Start Date End Date El Driver, DO [address] [place] [address] PCP - General Family Medicine 10/29/13 Windows And Doors Installer Relationship Specialty Start Date End Date El Driver DO [address] [facility], [place] [address] PCP - General Family Medicine 10/29/13 Team Status: Active Member Role Status Dates Dr. El Driver DO Family Provider Active Dr. El Driver DO Primary Care Provider Active Team Status: Inactive Member Role Status Dates Dr. El Driver DO Primary Care Provider Active Dr. Omar Hess MD Emergency Provider Active Team Status: Active Member Role Status Dates Dr. El Driver DO Primary Care Provider Active Lulu Decker LEGAL SUPPORT SPECIALIST, LEGAL SUPPORT SPECIALIST-C Attending Provider Active Team Status: Inactive Member Role Status Dates Dr. El Driver DO Primary Care Provider, Attend ing Provider Active Team Status: Inactive Member Role Status Dates Dr. El Driver DO Primary Care Provider Active Dr. Omar Hess MD Attending Provider, Emergency Provi kari Active Team Status: Inactive Member Role Status Dates Dr. El Driver DO Primary Care Provider Active Lulu Decker LEGAL SUPPORT SPECIALIST, LEGAL SUPPORT SPECIALIST-C Attending Provider Active Team Status: Inactive Member Role Status Dates Dr. El Driver DO Primary Care Provider Active Lulu Decker LEGAL SUPPORT SPECIALIST, LEGAL SUPPORT SPECIALIST-C Attending Provider, Referring Provider Active Windows And Doors Installer Relationship Specialty Start Date End Date El Driver DO [address] [place] [address] PCP - General Family Medicine 10/29/13 Windows And Doors Installer Relationship Specialty Start Date End Date El Driver DO [address] [place] [address] PCP - General Family Medicine 10/29/13 Windows And Doors Installer Relationship Specialty Start Date End Date El Driver DO [address] [place] [address] PCP - General Family Medicine 10/29/13 Windows And Doors Installer Relationship Specialty Start Date End Date El Driver DO [address] [place] [address] PCP - General Family Medicine 10/29/13 Team Status: Inactive Member Role Status Dates Dr. El Driver DO Primary Care Provider Active Dr. Eve Rosenthal MD Emergency Provider Active Windows And Do[employer] Installer Relationship Specialty Start Date End Date El Driver DO [address] [place] [address] PCP - General Family Medicine 10/29/13 Windows And Doors Installer Relationship Specialty Start Date End Date El Driver DO [address] [place] [address] PCP - General Family Medicine 10/29/13 Windows And Doors Installer Relationship Specialty Start Date End Date El Driver DO [address] [place] [address] PCP - General Family Medicine 10/29/13 Windows And Doors Installer Relationship Specialty Start Date End Date El Driver DO [address] [place] [address] PCP - General Family Medicine 10/29/13 Windows And Doors Installer Relationship Specialty Start Date End Date El Driver DO [address] [place] [address] PCP - General Family Medicine 10/29/13 Windows And Doors Installer Relationship Specialty Start Date End Date El Driver DO [address] [place] [address] PCP - General Family Medicine 10/29/13 Team Status: Inactive Member Role Status Dates Dr. El Driver DO Primary Care Provider, Referr ing Provider Active Dr. Kimi Newton MD Attending Provider Active Team Status: Active Member Role Status Dates Dr. El Driver DO Primary Care Provider Active Dr. Kimi Newton MD Attending Provider , Referring Provider, Other Provider Active Team Status: Active Member Role Status Dates Dr. El Driver DO Primary Care Provider Active Laura Mas LEGAL SUPPORT SPECIALIST, LEGAL SUPPORT SPECIALIST-C Attending Provider Active Team Status: Inactive Member Role Status Dates Dr. El Driver DO Primary Care Provider Active Dr. Kimi Newton MD Attending Provider, Referring Pr ovider Active Team Status: Inactive Member Role Status Dates Dr. El Driver DO Primary Care Provider Active Dr. Eve Rosenthal MD Attending Provider, Emergency Provider Active Team Status: Active Member Role Status Dates Dr. El Driver DO Primary Care Provider Active Dr. Kimi Newton MD Attending Provider, Referring Pr ovider Active Windows And Doors Installer Relationship Specialty Start Date End Date El Driver DO [address] [place] [address] PCP - General Family Medicine 10/29/13 Windows And Doors Installer Relationship Specialty Start Date End Date El Driver DO [address] [place] [address] PCP - General Family Medicine 10/29/13 Windows And Doors Installer Relationship Specialty Start Date End Date El Driver DO [address] [place] [address] PCP - General Family Medicine 10/29/13 Windows And Doors Installer Relationship Specialty Start Date End Date El Driver DO [address] [place] [address] PCP - General Family Medicine 10/29/13 Windows And Doors Installer Relationship Specialty Start Date End Date El Driver DO [address] [place] [address] PCP - General Family Medicine 10/29/13 Windows And Doors Installer Relationship Specialty Start Date End Date El Driver DO [address] [place] [address] PCP - General Family Medicine 10/29/13 Windows And Doors Installer Relationship Specialty Start Date End Date El Driver DO [address] [place] [address] PCP - General Family Medicine 10/29/13 Windows And Doors Installer Relationship Specialty Start Date End Date El Driver DO [address] [place] [address] PCP - General Family Medicine 10/29/13 Windows And Doors Installer Relationship Specialty Start Date End Date El Driver DO [address] [place] [address] PCP - General Family Medicine 10/29/13 Windows And Doors Installer Relationship Specialty Start Date End Date El Driver DO [address] [place] [address] PCP - General Family Medicine 10/29/13 Team Status: Inactive Member Role Status Dates Dr. El Driver DO Primary Care Provider, Referr ing Provider Active Lulu Decker LEGAL SUPPORT SPECIALIST, LEGAL SUPPORT SPECIALIST-C Attending Provider Active Windows And Doors Installer Relationship Specialty Start Date End Date El Driver DO [address] [place] [address] PCP - General Family Medicine 10/29/13 Windows And Doors Installer Relationship Specialty Start Date End Date El Driver DO [address] [place] [address] PCP - General Family Medicine 10/29/13 Windows And Doors Installer Relationship Specialty Start Date End Date El Driver DO [address] [facility] [place] [address] PCP - General Family Medicine 10/29/13 Windows And Doors Installer Relationship Specialty Start Date End Date El Driver DO [address] [place] [address] PCP - General Family Medicine 10/29/13 Windows And Doors Installer Relationship Specialty Start Date End Date El Driver DO [address] [facility] [place] [address] PCP - General Family Medicine 10/29/13 Windows And Doors Installer Relationship Specialty Start Date End Date El Driver DO [address] [place] [address] PCP - General Family Medicine 10/29/13 Windows And Doors Installer Relationship Specialty Start Date End Date El Driver DO [address] [place] [address] PCP - General Family Medicine 10/29/13 Alysha Sol, INSPECTOR MATERIAL DISPOSITION.CLOTH STOCK SORTER [address] [place] [address] Market Researcher Family [facility] 05/27/24 Jeanie Cortez, INSPECTOR MATERIAL DISPOSITION.CLOTH STOCK SORTER [address] [place] [address] Market Researcher Family [facility] 05/27/24 Windows And Doors Installer Relationship Specialty Start Date End Date El Driver DO [address] [address] PCP - General Family Medicine 10/29/13 Alysha Sol, INSPECTOR MATERIAL DISPOSITION.CLOTH STOCK SORTER [address] [place] [address] Market Researcher Family [facility] 05/27/24 eJanie Cortez, INSPECTOR MATERIAL DISPOSITION.CLOTH STOCK SORTER [address] [place] [address] [facility] 05/27/24 Windows And Doors Installer Relationship Specialty Start Date End Date El Driver DO [address] [place] [address] PCP - General Family Medicine 10/29/13 Alysha Sol, INSPECTOR MATERIAL DISPOSITION.CLOTH STOCK SORTER [address] [place] [address] Market Researcher Family Medicine 05/27/24 Jeanie Cortez, INSPECTOR MATERIAL DISPOSITION.CLOTH STOCK SORTER [address] [place] [address] Market Researcher Family [facility] 05/27/24 Windows And Doors Installer Relationship Specialty Start Date End Date El Driver DO [address] [place] [address] PCP - General Family Medicine 10/29/13 Alysha Sol, INSPECTOR MATERIAL DISPOSITION.CLOTH STOCK SORTER [address] [place] [address] Market Researcher Family [facility] 05/27/24 Jeanie Cortez, INSPECTOR MATERIAL DISPOSITION.CLOTH STOCK SORTER [address] [place] [address] Market Researcher Family [facility] 05/27/24 Windows And Doors Installer Relationship Specialty Start Date End Date El Driver DO [address] [place] [address] PCP - General Family Medicine 10/29/13 Alysha Sol, INSPECTOR MATERIAL DISPOSITION.CLOTH STOCK SORTER [address] [place] [address] Market Researcher Family [facility] 05/27/24 Jeanie Cortez, INSPECTOR MATERIAL DISPOSITION.CLOTH STOCK SORTER [address] [place] [address] [facility] 05/27/24 Windows And Doors Installer Relationship Specialty Start Date End Date El Driver DO [address] [place] [address] PCP - General Family Medicine 10/29/13 Alysha Sol, INSPECTOR MATERIAL DISPOSITION.CLOTH STOCK SORTER [address] [place] [address] Market Researcher Family Medicine 05/27/24 Jeanie Cortez, INSPECTOR MATERIAL DISPOSITION.CLOTH STOCK SORTER [address] [place] [address] Market Researcher Family Medicine 05/27/24 Windows And Doors Installer Relationship Specialty Start Date End Date El Driver DO [address] [facility] [place] [address] PCP - General Family Medicine 10/29/13 Alysha Sol, INSPECTOR MATERIAL DISPOSITION.CLOTH STOCK SORTER [address] [facility] [place] [address] Market Researcher Family [facility] 05/27/24 MyaJeanie, INSPECTOR MATERIAL DISPOSITION.CLOTH STOCK SORTER [address] [place] [address] [facility] 05/27/24 Windows And Doors Installer Relationship Specialty Start Date End Date El Driver DO [address] [place] [address] PCP - General Family Medicine 10/29/13 Alysha Sol, INSPECTOR MATERIAL DISPOSITION.CLOTH STOCK SORTER [address] [place] [address] Market Res[facility]National [facility] 05/27/24 MyaJeanie, INSPECTOR MATERIAL DISPOSITION.CLOTH STOCK SORTER [address] [place] [address] [facility] 05/27/24 Windows And Doors Installer Relationship Specialty Start Date End Date El Driver DO [address] [place] [address] PCP - General Family Medicine 10/29/13 Alysha Sol, INSPECTOR MATERIAL DISPOSITION.CLOTH STOCK SORTER [address] [place] [address] Market Researcher Family Medicine 05/27/24 Jeanie Cortez, INSPECTOR MATERIAL DISPOSITION.CLOTH STOCK SORTER [address] [place] [address] Market Researcher Family Medicine 05/27/24 Windows And Doors Installer Relationship Specialty Start Date End Date El Driver DO [address] [facility] [place] [address] PCP - General Family Medicine 10/29/13 Alysha Sol, INSPECTOR MATERIAL DISPOSITION.CLOTH STOCK SORTER [address] [place] [address] Market Researcher Family Medicine 05/27/24 Jeanie Cortez, INSPECTOR MATERIAL DISPOSITION.CLOTH STOCK SORTER [address] [place] [address] [facility] 05/27/24 Windows And Doors Installer Relationship Specialty Start Date End Date El Driver DO [address] [place] [address] PCP - General Family Medicine 10/29/13 Jeanie Cortez, INSPECTOR MATERIAL DISPOSITION.CLOTH STOCK SORTER [address] [place] [address] Market Researcher Family Medicine 05/27/24 Windows And Doors Installer Relationship Specialty Start Date End Date El Driver DO [address] [place] [address] PCP - General Family Medicine 10/29/13 Jeanie Cortez, INSPECTOR MATERIAL DISPOSITION.CLOTH STOCK SORTER [address] [place] [address] Market Researcher Family Medicine 05/27/24 Windows And Doors Installer Relationship Specialty Start Date End Date El Driver DO [address] [place] [address] PCP - General Family Medicine 10/29/13 MyaJeanie, INSPECTOR MATERIAL DISPOSITION.CLOTH STOCK SORTER [address] [place] [address] Market Researcher Family Medicine 05/27/24 Windows And Doors Installer Relationship Specialty Start Date End Date El Driver DO [address] [place] [address] PCP - General Family Medicine 10/29/13 MyaJeanie, INSPECTOR MATERIAL DISPOSITION.CLOTH STOCK SORTER [address] [place] [address] Market Researcher Family Medicine 05/27/24 Windows And Doors Installer Relationship Specialty Start Date End Date El Driver DO [address] [place] [address] PCP - General Family Medicine 10/29/13 Jeanie Cortez, INSPECTOR MATERIAL DISPOSITION.CLOTH STOCK SORTER [address] [place] [address] Market Researcher Family Medicine 05/27/24 Windows And Doors Installer Relationship Specialty Start Date End Date El Driver DO [address] [place] [address] PCP - General Family Medicine 10/29/13 Jeanie Cortez, INSPECTOR MATERIAL DISPOSITION.CLOTH STOCK SORTER [address] [place] [address] Market Researcher Family [facility] 05/27/24 Windows And Doors Installer Relationship Specialty Start Date End Date El Driver DO [address] [place] [address] PCP - General Family Medicine 10/29/13 Jeanie Cortez, INSPECTOR MATERIAL DISPOSITION.CLOTH STOCK SORTER [address] [place] [address] Market Researcher Family Medicine 05/27/24 Luz Arita, INSPECTOR MATERIAL DISPOSITION.CLOTH STOCK SORTER [address] [place] [address] Market Researcher Family Medicine 12/03/24 Windows And Doors Installer Relationship Specialty Start Date End Date El Driver DO [address] [place] [address] PCP - General Family Medicine 10/29/13 Jeanie Cortez, INSPECTOR MATERIAL DISPOSITION.CLOTH STOCK SORTER [address] [place] [address] Market Researcher Family Medicine 05/27/24 Luz Arita, INSPECTOR MATERIAL DISPOSITION.CLOTH STOCK SORTER [address] [place] [address] [facility] 12/03/24 Windows And Doors Installer Relationship Specialty Start Date End Date El Driver DO [address] [place] [address] PCP - General Family Medicine 10/29/13 Jeanie Cortez, INSPECTOR MATERIAL DISPOSITION.CLOTH STOCK SORTER [address] [place] [address] Market Researcher Family Medicine 05/27/24 Luz Arita, INSPECTOR MATERIAL DISPOSITION.CLOTH STOCK SORTER [address] [place] [address] [facility] 12/03/24 Windows And Doors Installer Relationship Specialty Start Date End Date El Driver DO [address] [place] [address] PCP - General Family Medicine 10/29/13 Jeanie Cortez, INSPECTOR MATERIAL DISPOSITION.CLOTH STOCK SORTER [address] [place] [address] Market Researcher Family Medicine 05/27/24 Luz Arita, INSPECTOR MATERIAL DISPOSITION.CLOTH STOCK SORTER [address] [place] [address] [facility] 12/03/24 Windows And Doors Installer Relationship Specialty Start Date End Date El Driver DO [address] [place] [address] PCP - General Family Medicine 10/29/13 Jeanie Cortez, INSPECTOR MATERIAL DISPOSITION.CLOTH STOCK SORTER [address] [place] [address] [facility] Res[facility]Va [facility] 05/27/24 Luz Arita, INSPECTOR MATERIAL DISPOSITION.CLOTH STOCK SORTER [address] [place] [address] [facility] 12/03/24 Windows And Doors Installer Relationship Specialty Start Date End Date El Driver DO [address] [place] [address] PCP - General Family Medicine 10/29/13 Jeanie Cortez, INSPECTOR MATERIAL DISPOSITION.CLOTH STOCK SORTER [address] [place] [address] Market Res[facility] 05/27/24 Luz Arita, INSPECTOR MATERIAL DISPOSITION.CLOTH STOCK SORTER [address] [place] [address] [facility] 12/03/24 Windows And Doors Installer Relationship Specialty Start Date End Date El Driver DO [address] [place] [address] PCP - General Family Medicine 10/29/13 [facility], INSPECTOR MATERIAL DISPOSITION.CLOTH STOCK SORTER [address] [place] [address] Market Res[facility]National [facility] 05/27/24 Luz Arita, INSPECTOR MATERIAL DISPOSITION.CLOTH STOCK SORTER [address] [place] [address] [facility] 12/03/24 Windows And Doors Installer Relationship Specialty Start Date End Date El Driver DO [address] [place] [address] PCP - General Family Medicine 10/29/13 [facility], INSPECTOR MATERIAL DISPOSITION.CLOTH STOCK SORTER [address] [place] [address] [facility] 05/27/24 Luz Arita, INSPECTOR MATERIAL DISPOSITION.CLOTH STOCK SORTER [address] [place] [address] [facility] 12/03/24 Team Status: Active Member Role/Relationship Status Dates Dr. El Driver DO Primary care physician Active Team Status: Inactive Member Role/Relationship Status Dates Dr. El Driver DO Primary care physician Active Start: March 20, 2025 End: March 20, 2025 Dr. Chris Medina MD Emergency Depart ment Physician Active Start: March 20, 2025 End: March 20, 2025 Care Team (unrecognized sect ion and content) Care Team Personnel Name: DRIVER, EL SOSA Member Role: Primary Care Physician Address: Address: [address] [place] [address]- Name: ELIAZAR Headley Position: ED RN Member Role: ED RN Name: DHARMESH BLANKENSHIP MD Position: ED Physician Member Role: Attending Physician Address: Address: [facility] [address] [place] [address]- INFORMATION SOURCE (unrecogn ized section and content) DATE CREATED AUTHOR 08/29/2022 [facility] DATE CREATED AUTHOR AUTHOR'S ORGANIZ ATION 04/05/2023 [facility] DATE CREATED AUTHOR AUTHOR'S ORGANIZ ATION 01/01/2025 [facility] DATE CREATED AUTHOR AUTHOR'S ORGANIZ ATION 01/04/2025 [facility] DATE CREATED AUTHOR AUTHOR'S ORGANIZ ATION 03/31/2025 [facility] DATE CREATED AUTHOR AUTHOR'S ORGANIZ ATION 04/10/2025 [facility] Goals (unrecognized section and content) Goals may be documented in a n alternate section FOR RECORDS PERTAINING TO PATIENTS WHO ARE OR HAVE BEEN ENROLLED IN A CHEMICAL DEPENDENCY/SUBSTANCEABUSE PROGRAM, SOME INFORMATION MAY BE OMITTED. This clinical summary was aggregated from multiple sources. Caution should be exercised in using it in the provision of clinical care. This summary normalizes information from multiple sources, and as a consequence, information in this document may materially change the coding, format and clinical context of patient data. In addition, data may be omitted in some cases. CLINICAL DECISIONS SHOULD BE BASED ON THE PRIMARY CLINICAL RECORDS. [facility] [employer] [facility]. provides no warranty or guarantee of the accuracy or completeness of information in this document.
[2025-05-01 20:06] LABS: Mucous, Urine 0 SEEN /hpf (<or=2+); Red Blood Cells-Urine 0 SEEN /hpf (0-5)
[2025-05-01] MEDS: 0.9% Normal Saline (1000mL) 1,000 ML 50 ML IV (20:14)
[2025-05-01 20:15] VITALS: BMI 35.0
[2025-05-01 20:15] LABS: Color, Urine Yellow (Yellow); Glucose, Dipstick Normal (Normal); Ketone-Dipstick Negative (Negative); Leukocyte Esterase-Dipstick 25 /ul (Negative); Nitrite-Dipstick Negative (Negative); Occult Blood-Urine 10 /ul (Negative); Protein-Dipstick 15 mg/dl (Negative); Specific Gravity, Urine 1.020 (1.002-1.030); Urine Bilirubin Dipstick Negative (Negative)
[2025-05-01 20:16] VITALS: BP 134/54; PULSE 67; RESP 16; TEMP 36.9; O2SAT 97
[2025-05-01 20:27] LABS: Hematocrit 35.6 % (37-47); Hemoglobin 12.1 g/dL (12.0-15.0); Immature Granulocytes Count 0.020 X10^3/uL (0.0-0.0); Mean Corp Hgb Conc 34.0 g/dL (32-36); Mean Corpuscular Volume 88.1 fL (81-99); Mean Platelet Vol. 9.2 fl (6.2-12.0); NRBC Flagged by Analyzer 0 % (0-5); Platelet Count 206 K/mm3 (150-450); RBC Distribution Width CV 12.1 % (11.6-14.6); RBC Distribution Width SD 39.1 fl (35.1-43.9); Red Blood Count 4.04 M/mm3 (4.2-5.4); White Blood Count 7.4 K/mm3 (4.4-11.0)
[2025-05-01 21:06] LABS: AST(SGOT) 20 U/L (<=31); Alanine Aminotransfer ALT/SGPT 23 U/L (<=34); Albumin, Serum 3.9 g/dL (3.4-4.8); Alkaline Phosphatase 99 U/L (35-104); Anion Gap 10 (5-15); BUN 18 mg/dL (4-19); BUN/Creat Ratio 20.7 RATIO (10-20); Calcium,Total 9.4 mg/dL (7.6-11.0); Carbon Dioxide 24.4 mmol/L (21.0-32.0); Chloride 104 mmol/L (98-108); Estimated Creatinine Clearance 72.62 ml/min (50-250); Globulin 2.8 g/dL (2.2-4.2); Glucose 147 mg/dL (70-99); Potassium 4.2 mmol/L (3.3-5.1)
[2025-05-01 21:47] LABS: Squamous Epithelial Cells - UA 0-5 SEEN /hpf (5-10)
[2025-05-01 21:58] LABS: Prothrombin Time (Protime)PT. 12.7 SECONDS (11.7-14.9)
[2025-05-01 21:59] LABS: Partial Thromboplast Time 28.0 Seconds (24.1-36.2)
[2025-05-01 22:00] VITALS: BP 135/58; PULSE 70; RESP 18; TEMP 36.8; O2SAT 97
[2025-05-01] MEDS: Smz/Tmp Ds Tablet 1 TABLET PO (23:23)
--- NOTE | 2025-05-01 23:26 | EX.ED.DYSGE1 ---
HPI History of Present Illness Chief Complaint: Wound Check Narrative Narrative: Patient was seen and examined after presenting to ED for wound check on her right foot patient is a diabetic and also has peripheral vascular disease and she had some sort of infectious process on her foot in which her medical radiation dosimetrist ended up probing it she was placed on antibiotics however she is having redness overlying her forefoot. [facility] Medical History Encounter for screening for malignant neoplasm of lung PAD (peripheral artery disease) SOB (shortness of breath) Carotid artery disease Macular degeneration ASCVD (arteriosclerotic cardiovascular disease) DDD (degenerative disc disease), cervical Cervical radiculopathy Paraspinal muscle spasm Encounter for screening for malignant neoplasm of lung in former smoker who quit in past 15 years with 30 pack year history or greater Former smoker Hemoglobin A1c greater than 8.0% Neoplasm of skin of back 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 Vitamin deficiency Vision problems Pneumonia Neuropathy Recurrent infections Hormone deficiency Anxiety and depression Chronic bronchitis Cataracts, bilateral Breast lump UTI (urinary tract infection) Back problem Arthritis GERD (gastroesophageal reflux disease) Obesity Exertional chest pain (10/06/20) Cellulitis Nonobstructive atherosclerosis of coronary artery Essential (primary) hypertension osteomyelitis left rib Tobacco user Dyslipidemia Diabetes mellitus, type 2 Agitated depression Home Medications Medication Instructions Recorded Last Taken Type aspirin 81 mg tablet,delayed 81 mg PO DAILY heart health 02/05/16 07/01/19 20:00 History release 81 mg glimepiride 2 mg tablet 2 mg PO DAILY diabetes 02/05/16 07/02/19 10:00 History 2 mg vit C 250 mg-vit E 90 mg-zinc 40 1 cap PO BID vitamin 07/02/19 07/02/19 10:00 History mg-copper 1 [id number] 1 capsule capsule atorvastatin 40 mg tablet 40 mg PO QHS cholesterol #30 tabs 07/03/19 Unknown Rx calcium carbonate (Calcium 500) 500 mg PO DAILY 08/07/19 Unknown History cholecalciferol (vitamin D3) 50 50 mcg PO DAILY 08/07/19 Unknown History mcg (2,000 unit) capsule lactobacillus combination no.9 4 4,000 mmu cells PO DAILY 07/16/21 Unknown History billion cell capsule (Adult 50 Plus Probiotic) hydrocodone-acetaminophen 5-325mg 1 tab PO Q6H PRN PRN Pain 3 days 01/20/23 Unknown Rx 5mg-325mg #10 TABLETS insulin NPH isoph U-100 human 100 35 unit subcut QAM 01/26/23 Unknown History unit/mL subcutaneous suspension (Humulin N NPH U-100 Insulin (isophane susp)) insulin NPH isoph U-100 human 100 45 unit subcut QPM 01/26/23 Unknown History unit/mL subcutaneous suspension (Humulin N NPH U-100 Insulin (isophane susp)) insulin regular human 100 unit/mL 37 unit subcut DAILY diabetes 01/26/23 Unknown History injection solution lisinopril 20 mg tablet 30 mg PO DAILY 01/26/23 Unknown History omeprazole 40 mg capsule,delayed 40 mg PO BID reflux 01/26/23 Unknown History release ondansetron 4 mg disintegrating 4 mg PO Q8H PRN nausea and vomiting 01/26/23 Unknown History tablet trazodone 100 mg tablet 200 mg PO QHS sleep 01/26/23 Unknown History mecobalamin (vitamin B12) 1,000 1,000 mcg PO DAILY 01/27/23 Unknown History mcg chewable tablet cephalexin 500 mg capsule 500 mg PO Q6 #40 CAPSULES 03/20/25 Unknown Rx fluconazole 150 mg tablet 150 mg PO .once #1 TAB 03/20/25 Unknown Rx gabapentin 300 mg capsule 1,200 mg PO QHS 03/20/25 Unknown History gabapentin 300 mg capsule 300 mg PO DAILY 03/20/25 Unknown History magnesium oxide 400 mg (241.3 mg 400 mg PO DAILY 03/20/25 Unknown History magnesium) tablet sertraline 50 mg tablet 50 mg PO DAILY 03/20/25 Unknown History tramadol 50 mg tablet 50 - 100 mg PO Q6H PRN PRN pain 03/20/25 Unknown History sulfamethoxazole 800 1 tab PO BID #14 tabs 05/01/25 Unknown Rx mg-trimethoprim 160 mg tablet (Bactrim DS) Allergy/AdvReac Type Severity Reaction Status Date / Time Iodinated Contrast Media Allergy Severe Nausea/Vom/ Verified 05/01/25 17:20 Diarrhea exenatide (From [place]) Allergy Intermediate Nausea/Vom/ Verified 05/01/25 17:20 Diarrhea amoxicillin (From Augmentin) AdvReac Mild Nausea/Vom/ Verified 05/01/25 17:20 Diarrhea cefdinir (From Omnicef) AdvReac Mild Nausea/Vom/ Verified 05/01/25 17:20 Diarrhea clarithromycin (From Biaxin) AdvReac Mild Other Verified 05/01/25 17:20 clavulanic acid (From AdvReac Mild Nausea/Vom/ Verified 05/01/25 17:20 Augmentin) Diarrhea metformin AdvReac Mild Nausea/Vom/ Verified 05/01/25 17:20 Diarrhea Latex, Natural Rubber AdvReac hives Verified 05/01/25 17:20 Family History Mother Diabetes CVA (cerebral vascular accident) Hypertension High cholesterol Father CAD (coronary artery disease) Brother Cancer Alcoholism CAD (coronary artery disease) Brother Cancer CAD (coronary artery disease) Brother Cancer CAD (coronary artery disease) Daughter Anxiety Sister Depression Diabetes Heart disease High cholesterol CAD (coronary artery disease) Son Diabetes Sister Depression Diabetes Surgical History Hx of septic arthritis History of laminectomy History of cholecystectomy History of hysterectomy History of left heart catheterization (07/03/19) Social History Smoking Status: Former smoker quit date: 06/20/18 pack-years: 47 Tobacco: How many years used: 47 how long ago did patient quit smokin06/20/18 second hand exposure: No quit status: quit date established alcohol intake: never substance use type: does not use caffeine: Yes Type: carbonated beverages Number of servings: 4 additional social history: Does Take Aspirin Daily Does Not Take Ibuprofen ROS ROS ED ROS Narrative Pertinent Positives: Redness and pain involving the forefoot history of diabetes Pertinent Negatives: Fevers chills worsening numbness or tingling The remainder of review of systems negative unless otherwise stated in the HPI above. Systems reviewed including constitutional, psychiatric, cardiovascular, respiratory, integument, HENT, gastrointestinal. EXAM Physical Exam Narrative Exam Narrative: Patient is afebrile hemodynamically stable does not appear toxic or in distress she is normocephalic and atraumatic. Her compartments are soft she does have that dried wound to the fifth metatarsal head on the lateral aspect there is no purulent drainage she does have some localized surrounding erythema overlying the forefoot but again intact MSPs otherwise it does not further streak up the foot there is no necrotizing process no hemorrhagic bullae there is no crepitus or vesicular lesions Const Vital Signs: 05/01/25 17:18 05/01/25 19:07 05/01/25 19:10 Temperature 98.8 F 98 F Temperature Source Oral Oral Pulse Rate 74 67 Respiratory Rate 18 13 Blood Pressure 145/64 H 148/66 H Blood Pressure Mean 91 93 Pulse Ox 98 96 99 Oxygen Delivery Method Room Air 05/01/25 19:10 05/01/25 20:16 05/01/25 22:00 Temperature 98.4 F 98.3 F Temperature Source Oral Oral Pulse Rate 67 70 Respiratory Rate 14 16 18 Blood Pressure 134/54 H 135/58 H Blood Pressure Mean 80 83 Pulse Ox 99 97 97 Oxygen Delivery Method Room Air Room Air Room Air MDM MDM MDM Narrative Medical decision making narrative: Nursing notes, triage notes, available previous documentation, and vital signs were reviewed. Any discrepancies noted were addressed. Differential Diagnoses: She does have cellulitis does not appear to be necrotizing process possibility that there could be underlying osteomyelitis but lower suspicion for right now Interventions: Morphine Zofran Antibiotics Given: Bactrim Fluids Given: 1 L normal saline Labs Reviewed: No leukocytosis leukopenia anemia electrolyte Arrigoni renal insufficiency transaminitis lactic acid is only 1.2 urine is without significant evidence of infection. Imaging Reviewed: Personally reviewed and interpreted by me: plain films of her right foot I do not see any sort of bony erosions or fractures or dislocation Previous Documentation Reviewed: None available or applicable at this time. ED Course: Patient presenting with symptoms as stated above her pain is not out of proportion patient appears to have cellulitis of the foot she will be given antibiotics here prescription for the same return precautions follow-up recommendations provided he is patient stable for discharge home. This note was made utilizing voice recognition software. All attempts were made to correct spelling or other errors prior to note completion. However, due to the fast-paced nature of emergency medicine, some errors may still be present. Lab Data Labs: Laboratory Results - last 24 hr 05/01/25 05/01/25 05/01/25 19:57 20:10 22:20 WBC 7.4 RBC 4.04 L Hgb 12.1 Hct 35.6 L MCV 88.1 MCH 30.0 MCHC 34.0 RDW Std Deviation 39.1 RDW Coeff of Siri 12.1 Plt Count 206 MPV 9.2 Immature Gran % (Auto) 0.300 Neut % (Auto) 48.7 Lymph % (Auto) 41.4 H Harlan % (Auto) 8.0 Eos % (Auto) 0.9 Baso % (Auto) 0.7 Absolute Neuts (auto) 3.6 Absolute Lymphs (auto) 3.06 Nucleated RBC % 0 PT 12.7 INR 0.9 APTT 28.0 Sodium 138 Potassium 4.2 Chloride 104 Carbon Dioxide 24.4 Anion Gap 10 BUN 18 Creatinine 0.87 Estim Creat Clear Calc 72.62 Est GFR (MDRD) Non-Af 71 BUN/Creatinine Ratio 20.7 H Glucose 147 H Lactic Acid 1.2 Calcium 9.4 Total Bilirubin 0.30 AST 20 ALT 23 Alkaline Phosphatase 99 Total Protein 6.8 Albumin 3.9 Globulin 2.8 Albumin/Globulin Ratio 1.4 Urine Color Yellow Urine Clarity Clear Urine pH 6.0 Ur Specific [place] 1.020 Urine Protein 15 H Urine Glucose (UA) Normal Urine Ketones Negative Urine Occult Blood 10 H Urine Nitrite Negative Urine Bilirubin Negative Urine Urobilinogen Normal Ur Leukocyte Esterase 25 H Urine RBC 0 SEEN Urine WBC 0-5 SEEN Ur Squamous Epith Cells 0-5 SEEN Urine Bacteria 0 SEEN Urine Mucus 0 SEEN POC Glucose 108 H Radiography Diagnostic Testing: Clinical Impression(s) from Imaging Studies Foot X-Ray 05/01/25 17:41 IMPRESSION: No acute or aggressive osseous abnormality. Radiographs have limited sensitivity for early osteomyelitis. If there is strong/persistent clinical concern, suggest MRI or nuclear bone scan. Reading Location: [id number] Discharge Plan Triage Chief Complaint: Wound Check ED Provider: Shukri Ugalde Dx/Rx/DC Orders Clinical Impression: Cellulitis of foot, right, Wound of foot, History of diabetes mellitus Instructions: ED Cellulitis Prescriptions: New sulfamethoxazole-trimethoprim [Bactrim DS] 800-160 mg tablet 1 tab PO BID Qty: 14 0RF No Action cholecalciferol (vitamin D3) 50 mcg (2,000 unit) capsule 50 mcg PO DAILY calcium carbonate [Calcium 500] 500 mg calcium (1,250 mg) tablet 500 mg PO DAILY Adult 50 Plus Probiotic 4 billion cell capsule 4,000 mmu cells PO DAILY Rx Instructions: administer with a meal ondansetron 4 mg tablet,disintegrating 4 mg PO Q8H PRN (Reason: nausea and vomiting) lisinopril 20 mg tablet 30 mg PO DAILY mecobalamin (vitamin B12) 1,000 mcg tablet,chewable 1,000 mcg PO DAILY insulin regular human 100 unit/mL solution 37 unit subcut DAILY aspirin 81 MG tablet,delayed release (DR/EC) 81 mg PO DAILY glimepiride 2 MG tablet 2 mg PO DAILY vit C,Q-Ge-oeukg-lutein-zeaxan 1 EACH capsule 1 cap PO BID atorvastatin 40 MG tablet 40 mg PO QHS Qty: 30 1RF trazodone 100 mg tablet 200 mg PO QHS omeprazole 40 mg capsule,delayed release(DR/EC) 40 mg PO BID Patient Comments: TAKE 1 CAPSULE TWICE DAILY hydrocodone-acetaminophen 5-325 mg tablet 1 tab PO Q6H PRN PRN (Reason: Pain) 3 Days Qty: 10 0RF Humulin N NPH U-100 Insulin 100 unit/mL suspension 35 unit subcut QAM Humulin N NPH U-100 Insulin 100 unit/mL suspension 45 unit subcut QPM tramadol 50 mg tablet 50 - 100 mg PO Q6H PRN PRN (Reason: pain) magnesium oxide 400 mg (241.3 mg magnesium) tablet 400 mg PO DAILY gabapentin 300 mg capsule 300 mg PO DAILY sertraline 50 mg tablet 50 mg PO DAILY gabapentin 300 mg capsule 1,200 mg PO QHS cephalexin 500 mg capsule 500 mg PO Q6 Qty: 40 0RF fluconazole 150 mg tablet 150 mg PO .once Qty: 1 0RF Primary Care Provider: El Driver Referrals: El Driver DO [Primary Care Provider, Medical] Activity Restrictions/Additional Instructions: You should take about 2 to 3 days worth of antibiotics before you start seeing improvement however if it is rapidly getting worse in the next few hours where the redness is really streaking up your leg immediately to return sooner otherwise please return if you are not getting any better after 2 to 3 days worth of antibiotics Print Language: Arabic Disposition Disposition: Home, Self Care D/C Safety Score for UGIB Assessment Lanette-Blatchford Bleeding Score (GBS): Stratifies upper GI bleeding patients who are "low-risk" and candidates for outpatient management. Hemoglobin, BUN, Recent Vital Signs: Hgb 12.1 g/dL (12.0-15.0) 05/01/25 20:10 BUN 18 mg/dL (4-19) 05/01/25 20:10 Pulse Rate 70 Blood Pressure 135/58 Score Interpretation: Score of 0: A GBS of 0 is a “Low Risk” GI bleed, and is highly sensitive (99.6% in a 2007 retrospective study) for predicting which patients did not require any “medical intervention”: blood transfusion, endoscopy, or surgery. This was confirmed in a 2009 [facility] study where patients with a score of 0 were actually discharged and had no GI bleeding mortality at 6 month followup Score above 0: A GBS greater than zero suggests a “High Risk” GI bleed that is likely to require “medical intervention”: transfusion, endoscopy, or surgery. A higher GBS also correlated with a higher likelihood of needing intervention Scores >/= 6 are associated with >50% risk of needing intervention D/C Safety Score for LGIB Assessment Assessment Tool: Readmission and adverse event risk in patients with acute lower GI bleeding. Hemoglobin and Recent Vital Signs: Hgb 12.1 g/dL (12.0-15.0) 05/01/25 20:10 Pulse Rate 70 05/01/25 22:00 Blood Pressure 135/58 05/01/25 22:00 Score Interpretation: Probability Percentage of safe discharge (absence of rebleeding, blood transfusion, therapeutic intervention, 28 day readmission, or ) Score of 8 or below: Consider discharge, with appropriate precautions. Score of 9 or above: Discharge NOT recommended. Consider admission with further workup and resuscitation as necessary.
[2025-05-01 23:35] VITALS: BP 112/78; PULSE 69; RESP 15; TEMP 36.6; O2SAT 97
--- NOTE | 2025-05-02 00:09 | ED.RN ---
Pt and pts daughter upset about atx that were prescribed and discharge. Pt stating she told the doctor she received IV atx the last time she was here and pt thinks she needs them again. Pt upset stating "That doctor would not listen to me and I know my body". This nurse attempted to answer all questions of pts and daughters and attempted to explain to pt that the atx the doctor ordered was what he thought was appropriate. This nurse asked pt if she would like to talk to the doctor again and pt refused stating "Just get me out of here and I am never coming back". Pt and pts daughter thanked this nurse for care. Pt taken to daughters car via wheelchair.
== END 2025-05-02 00:13 | disposition home or self-care (01) ==
PROVIDERS: Emergency Provider Specialist/Technologist Athletic Trainer; PCP Student in an Organized Health Care Education/Training Program; Visit Provider Specialist/Technologist Athletic Trainer
DX: L03.115 Cellulitis of right lower limb (principal); E11.51 Type 2 diabetes mellitus with diabetic peripheral angiopathy without gangrene; E11.40 Type 2 diabetes mellitus with diabetic neuropathy, unspecified; S91.301A Unspecified open wound, right foot, initial encounter; I10 Essential (primary) hypertension; I25.10 Atherosclerotic heart disease of native coronary artery without angina pectoris; E78.5 Hyperlipidemia, unspecified; Z87.891 Personal history of nicotine dependence; Z79.899 Other long term (current) drug therapy; Z79.84 Long term (current) use of oral hypoglycemic drugs; X58.XXXA Exposure to other specified factors, initial encounter
CPT/HCPCS: 73630; 80053; 81001; 82962; 83605; 85025; 85610; 85730; 87040; 87086; 87088; 94760; 96374; 96375; 96376; 99284; A4216; J2405